=== PATIENT | female | born 1950 | race Caucasian/White ===

== ENCOUNTER → 2017-10-23 | Outpatient (CLI) | payer MEDICARE, OTHER ==
[2017-10-23 16:01] LABS: Blood Urea Nitrogen 21 mg/dL (7-17); Non-African American GFR(MDRD) >60 (>60 ml/min/1.73 sqM)
== END | disposition home or self-care (01) ==
LOC: LABWHC1 14:56
PROVIDERS: ATTEND Physical Medicine & Rehabilitation
DX: M47.27 Other spondylosis with radiculopathy, lumbosacral region (principal)
CPT/HCPCS: 36415; 82565; 84520

== ENCOUNTER 2019-07-03 22:51 | Inpatient (IN) | payer MEDICARE, OTHER ==
--- NOTE | 2019-07-03 23:53 | ED ---
Fall HPI - General Source: patient, EMS Mode of arrival: EMS <Bogdan Barrientos - Last Filed: 07/04/19 01:21> <Tino Lopez - Last Filed: 07/04/19 01:58> - General Chief Complaint: Fall Stated Complaint: Fall Time Seen by Provider: 07/03/19 22:59 - History of Present Illness Initial Comments: Patient is a 68-year-old female presenting to emergency Department after fall. Patient reports drinking "couple of beers" before the incident occurred. Patient reports she attempted to get up off her chair and her "legs fell asleep" causing her to fall forward and to the left. Patient reports 2 abrasions on her left arm, left supraorbital hematoma, right leg abrasion. Patient also has a history of cervical fusion done approximately 7 years ago. Patient is in a c- collar upon arrival via EMS. Patient denies any one-sided weakness or paresthesias. Patient denies headache, blurry vision, chest pain, shortness of breath, nausea or vomiting. Patient is not on blood thinners. Patient reports that she takes oxycodone every 4 that was prescribed to her by a pain management doctor. Patient reports not taking her night dose. Patient also reports that she is wheezing due to her COPD. Patient does not use oxygen at home. Patient still smokes. (Bogdan Barrientos) - Related Data Home Medications Medication Instructions Recorded Confirmed Raloxifene [Evista] 60 mg PO DAILY 02/07/15 07/03/19 Sertraline HCl [Zoloft] 100 mg PO BID 02/07/15 07/03/19 Gabapentin 800 mg PO TID 04/05/15 07/03/19 Levothyroxine Sodium [Synthroid] 50 mcg PO DAILY 04/05/15 07/03/19 risperiDONE [RisperDAL] 2 mg PO HS 04/05/15 07/03/19 Ergocalciferol [Vitamin D2 50,000 unit PO WE 06/26/16 07/03/19 (DRISDOL)] Budesonide-Formot 160-4.5 Mcg 2 puff INHALATION RT-BID 08/28/16 07/03/19 [Symbicort 160-4.5 Mcg Inhaler] Glucosamine/Chondr Burkett A Sod [Osteo 1 tab PO BID 08/28/16 07/03/19 Bi-Flex Caplet] Pantoprazole Sodium [Protonix] 40 mg PO DAILY 08/28/16 07/03/19 Ipratropium-Albuterol Nebulize 3 ml INHALATION RT-QID PRN 07/03/19 07/03/19 [Duoneb 0.5 mg-3 mg/3 ml Soln] Naproxen Sodium [Naproxen Sodium 500 mg PO BID 07/03/19 07/03/19 ER] oxyCODONE-APAP 7.5-325MG [Percocet 1 tab PO Q6HR PRN 07/03/19 07/03/19 7.5-325 mg] Previous Rx's Medication Instructions Recorded Docusate [Colace] 100 mg PO BID #60 capsule 10/01/16 Ferrous Sulfate [Feosol] 325 mg PO DAILY #1 tab 10/02/16 LORazepam [Ativan] 0.5 mg PO BID PRN #20 tablet 10/02/16 Cephalexin [Keflex] 500 mg PO Q6HR 3 Days #12 cap 07/04/19 Allergies Allergy/AdvReac Type Severity Reaction Status Date / Time Penicillins Allergy Dyspnea Verified 07/03/19 23:10 aspirin AdvReac Nausea & Verified 07/03/19 23:10 Vomiting morphine AdvReac Hallucinati Verified 07/03/19 23:10 ons Review of Systems ROS Other: All systems not noted in ROS Statement are negative. <Bogdan Barrientos - Last Filed: 07/04/19 01:21> ROS Other: All systems not noted in ROS Statement are negative. <Tino Lopez - Last Filed: 07/04/19 01:58> ROS Statement: Those systems with pertinent positive or pertinent negative responses have been documented in the HPI. Past Medical History Past Medical History: Cancer, COPD, Fibromyalgia, Osteoarthritis (OA) Additional Past Medical History / Comment(s): Hepatitis C; Kidney Ca History of Any Multi-Drug Resistant Organisms: None Reported Past Surgical History: Back Surgery, Orthopedic Surgery Additional Past Surgical History / Comment(s): Kidney Surgery, right wrist Past Anesthesia/Blood Transfusion Reactions: No Reported Reaction Past Psychological History: Depression Smoking Status: Current every day smoker Past Alcohol Use History: Occasional Past Drug Use History: None Reported - Past Family History Father Family Medical History: Cancer Additional Family Medical History / Comment(s): LUNG CA Mother Family Medical History: Osteoarthritis (OA) <Bogdan Barrientos - Last Filed: 07/04/19 01:21> General Exam Limitations: no limitations General appearance: alert, in no apparent distress Head exam: Present: normocephalic. Absent: atraumatic (Left supraorbital hematoma), normal inspection, other (Negative Bañuelos sign, negative periorbital ecchymosis, negative hemotympanum) Eye exam: Present: normal appearance, PERRL, EOMI. Absent: scleral icterus Pupils: Present: normal accommodation ENT exam: Present: normal exam, normal oropharynx, mucous membranes moist, TM's normal bilaterally, normal external ear exam. Absent: other (No oral trauma, no fractured ,) Neck exam: Present: normal inspection. Absent: tenderness (No cervical tenderness), full ROM (Limited range of motion in all directions due to previous surgery) Respiratory exam: Present: wheezes (Bilateral wheezing in all lung hewitt) Cardiovascular Exam: Present: regular rate, normal rhythm, normal heart sounds GI/Abdominal exam: Present: soft, normal bowel sounds. Absent: tenderness, guarding Extremities exam: Present: full ROM, normal capillary refill (Bilateral), other (+2 ulnar and radial pulses bilaterally, +2 dorsalis pedis and posterior tibialis bilaterally.). Absent: normal inspection (Multiple left arm abrasions, abrasion noted on the right leg. Pre-existing bony deformity in the right arm. Pre-existing lesion noted on the right arm near bony deformity) Back exam: Present: normal inspection, full ROM. Absent: tenderness, CVA tenderness (R), CVA tenderness (L) Neurological exam: Present: alert, oriented X3 Psychiatric exam: Present: normal affect, normal mood Skin exam: Present: warm, intact, normal color. Absent: rash <Bogdan Barrientos - Last Filed: 07/04/19 01:21> General appearance: alert, in no apparent distress Head exam: Present: atraumatic, normocephalic, normal inspection Eye exam: Present: normal appearance, PERRL, EOMI. Absent: scleral icterus, conjunctival injection, periorbital swelling ENT exam: Present: normal exam, mucous membranes moist Neck exam: Present: normal inspection. Absent: tenderness, meningismus, lymphadenopathy Respiratory exam: Present: normal lung sounds bilaterally. Absent: respiratory distress, wheezes, rales, rhonchi, stridor Cardiovascular Exam: Present: regular rate, normal rhythm, normal heart sounds. Absent: systolic murmur, diastolic murmur, rubs, gallop, clicks GI/Abdominal exam: Present: soft, normal bowel sounds. Absent: distended, tenderness, guarding, rebound, rigid Extremities exam: Present: normal inspection, full ROM, normal capillary refill. Absent: tenderness, pedal edema, joint swelling, calf tenderness Back exam: Present: normal inspection Neurological exam: Present: alert, oriented X3, CN II-XII intact Psychiatric exam: Present: normal affect, normal mood Skin exam: Present: warm, dry, intact, normal color. Absent: rash <Tino Lopez - Last Filed: 07/04/19 01:58> Course <Tino Lopez - Last Filed: 07/04/19 01:58> Vital Signs 07/03/19 07/04/19 07/04/19 23:01 01:24 01:36 Temperature 97.4 F L Pulse Rate 101 H 90 92 Respiratory 18 Rate Blood Pressure 182/107 O2 Sat by Pulse 97 Oximetry - Reevaluation(s) Reevaluation #1: 07/04/19 01:57 Patient is able to actively here in the ER (Tino Lopez) Medical Decision Making <Bogdan Barrientos - Last Filed: 07/04/19 01:21> <Tino Lopez - Last Filed: 07/04/19 01:58> - Medical Decision Making Patient is a 68-year-old female with history of COPD presenting to emergency Department after fall. CT of brain and C-spine is indicative of left supraorbital scalp hematoma, no evidence of acute intracranial processes, no acute osseous findings and a cervical spine. X-ray of the pelvis is negative for acute fractures or dislocations. Chest x-ray is showing a linear subsegmental atelectasis in the left lung base, otherwise no evidence of acute cardio pulmonary process. Abrasions on the left forearm or repaired. Patient is given a DuoNeb treatment and steroids. Patient reports poor healing with skin injuries someone to prescribe Keflex for possible infections. Patient signed out to Dr. Lopez (Bogdan Barrientos) 68 female the ER status post fall. Patient is multiple abrasions but no acute fractures or trauma. Patient can be discharged home (Tino Lopez) Disposition <Bogdan Barrientos - Last Filed: 07/04/19 01:21> Is patient prescribed a controlled substance at d/c from ED?: No <Tino Lopez - Last Filed: 07/04/19 01:58> Clinical Impression: Fall, Alcohol intoxication Disposition: HOME SELF-CARE Condition: Good Instructions (If sedation given, give patient instructions): Fall Prevention (ED), Fall Prevention for Older Adults (ED) Prescriptions: Cephalexin [Keflex] 500 mg PO Q6HR 3 Days #12 cap Referrals: Michael Valdovinos DO [Primary Care Provider] - 1-2 days
--- NOTE | 2019-07-04 00:29 | XR ---
INDICATION: Pain. COMPARISON: Pelvis radiograph 09/28/16 FINDINGS: Single AP view of the pelvis is submitted for interpretation. There is a cemented left hip hemiarthroplasty. There is mild osteoarthritis of the right hip joint. Both hip joints are congruent. The sacroiliac joints and pubic symphysis are normally aligned. There is no evidence of acute fracture. Spinal fixation hardware is seen in the lower lumbar spine. IMPRESSION: No fracture or subluxation.
--- NOTE | 2019-07-04 00:29 | XR ---
INDICATION: Cough COMPARISON: CXR 09/28/16 FINDINGS: Single frontal view of the chest is submitted for interpretation. The cardiomediastinal and pulmonary vascularity are normal. There are calcified left hilar lymph nodes consistent with old granulomatous disease. There is a linear band of subsegmental atelectasis at the left lung base. The lungs are otherwise clear. There is no pleural effusion or pneumothorax. There are old fractures of the posterolateral right eighth and ninth ribs. There are no acute osseous findings. Fixation hardware in the lower thoracic and lumbar spine is partially imaged. Fusion hardware in the cervical spine is also partially imaged. IMPRESSION: 1. Linear subsegmental atelectasis at the left lung base. 2. Otherwise, no evidence of acute cardiopulmonary process.
--- NOTE | 2019-07-04 00:29 | CT ---
INDICATION: Pain TECHNIQUE: CT acquisition is performed through the brain and cervical spine. Sagittal and coronal reformatted images are provided. No IV contrast is administered. DOSE INFORMATION: DLP 1293.8 mGy-cm. This CT exam was performed using one or more of the following dose reduction techniques: automated exposure control, adjustment of the mA and/or kV according to patient size, and/or use of iterative reconstruction technique. COMPARISON: CT head and cervical spine, 03/12/16. FINDINGS: CT head: There is no evidence of acute intracranial hemorrhage or abnormal extra- axial fluid collection. There is no mass effect or midline shift. Sulci, ventricles, and basal cisterns are normal in size and configuration for patient age. Patchy hypoattenuation in the cerebral white matter is compatible with chronic small vessel ischemic disease. The thomas-white matter differentiation is preserved. There is left supraorbital scalp swelling. The calvarium is intact. The visualized paranasal sinuses and mastoid air cells are clear. CT cervical spine: The craniocervical and atlantoaxial relationships are maintained. There has been prior anterior cervical discectomy and fusion from C3-C6. Hardware appears intact and without evidence of complication. There is no evidence of acute fracture or subluxation. There is moderate-severe degenerative disc disease at C6-C7. There is multilevel uncovertebral joint and facet degeneration. There is no prevertebral soft tissue swelling. Lung apices are clear. IMPRESSION: 1. Left supraorbital scalp hematoma. 2. No CT evidence of acute intracranial process. 3. No acute osseous findings in the cervical spine.
[2019-07-04] MEDS ORDERED: methylPREDNISolone SOD SUCCI 125 MG/2 ML VIAL IV STA (01:06)
[2019-07-04] MEDS ORDERED: IPRATROPIUM-ALBUTEROL 3 ML NEB INHALATION STA (01:06)
[2019-07-04] MEDS ORDERED: oxyCODONE ER 10 MG TAB.ER.12H PO STA (01:15)
[2019-07-04] MEDS ORDERED: SODIUM CHLORIDE 0.9% 1,000 ML IV STA (02:55)
--- NOTE | 2019-07-04 02:59 | CT ---
INDICATION: Pain TECHNIQUE: CT acquisition is performed through the left hip. Sagittal and coronal reformatted images are provided. No IV contrast is administered. DOSE INFORMATION: DLP 765.1 mGy-cm. This CT exam was performed using one or more of the following dose reduction techniques: automated exposure control, adjustment of the mA and/or kV according to patient size, and/or use of iterative reconstruction technique. COMPARISON: Pelvis radiograph, 07/04/19. FINDINGS: . There is a radiographically uncomplicated cemented left hip hemiarthroplasty. There is no evidence of acute fracture involving the left hemipelvis. The pubic symphysis, left sacroiliac joint, and left hip joint are normally aligned. There is a large contusion of the left gluteal soft tissues with a 6.5 cm focal subcutaneous hematoma. Visualized portions of the abdominal cavity demonstrates sigmoid diverticulosis without acute diverticulitis. IMPRESSION: 1. No acute osseous findings. 2. Large contusion of the left gluteal soft tissues with 6.5 cm soft tissue hematoma.
--- NOTE | 2019-07-04 02:59 | ED ---
Medical Decision Making - Medical Decision Making 68 female the ER for evaluation, patient presents status post fall. Patient has significant expanding hematoma of left hip, patient will be admitted for monitoring of hematoma and pain control - Radiology Data Radiology results: report reviewed (CT of left hip), image reviewed Disposition Clinical Impression: Fall, Alcohol intoxication, Hip hematoma, left Disposition: ADMITTED IP TO THIS HOSP Condition: Fair Instructions (If sedation given, give patient instructions): Fall Prevention for Older Adults (ED), Fall Prevention (ED) Prescriptions: Cephalexin [Keflex] 500 mg PO Q6HR 3 Days #12 cap Referrals: Michael Valdovinos DO [Primary Care Provider] - 1-2 days
[2019-07-04 03:48] LABS: Basophils % (A) 0 %; Eosinophils # (A) 0.1 k/uL (0-0.7); Eosinophils % (A) 1 %; HGB 12.7 gm/dL (11.4-16.0); Lymphocytes # (A) 0.5 k/uL (1.0-4.8); Lymphocytes % (A) 6 %; MCH 31.2 pg (25.0-35.0); MCHC 33.4 g/dL (31.0-37.0); MCV 93.5 fL (80.0-100.0); Mean Platelet Volume 7.9; Monocytes # (A) 0.1 k/uL (0-1.0); Monocytes % (A) 2 %; Neutrophils # (A) 7.7 k/uL (1.3-7.7); Neutrophils % (A) 91 %; Platelet Count 116 k/uL (150-450); RBC 4.06 m/uL (3.80-5.40); RDW 14.6 % (11.5-15.5); WBC 8.5 k/uL (3.8-10.6)
[2019-07-04 03:57] LABS: ALT 33 U/L (9-52); AST 45 U/L (14-36); African American GFR (CKD) >90 (>60 ml/min/1.73 sqM); Albumin 4.2 g/dL (3.5-5.0); Alkaline Phosphatase 87 U/L (38-126); Anion Gap 11 mmol/L; Blood Urea Nitrogen 12 mg/dL (7-17); Calcium 8.8 mg/dL (8.4-10.2); Carbon Dioxide 16 mmol/L (22-30); Chloride 104 mmol/L (98-107); Glucose 121 mg/dL (74-99); Magnesium 1.8 mg/dL (1.6-2.3); Phosphorus 3.7 mg/dL (2.5-4.5); Potassium 4.4 mmol/L (3.5-5.1); Sodium 131 mmol/L (137-145); Total Bilirubin 0.4 mg/dL (0.2-1.3); Total Protein 6.9 g/dL (6.3-8.2)
[2019-07-04 03:59] LABS: Prothrombin Time 10.6 sec (9.0-12.0)
[2019-07-04] MEDS: LEVOTHYROXINE 50 MCG TAB PO SCH (06:38)
[2019-07-04] MEDS: SYMBICORT 160-4.5 MCG INHALER INHALATION SCH ×2 (07:15→20:35)
--- NOTE | 2019-07-04 07:20 | P.HPIM ---
History of Present Illness H&P Date: 07/04/19 Chief Complaint: Fall 5-year-old female with history of COPD Patient presented to the emergency department after sustaining a fall at home couldn't get up after the fall due to bad knees and pain in her hip and had, she admits to drinking couple beers with her sister she had 4 beers and that she was trying to get up from chair she felt that her leg was sleep and fell immediately had to edge of the table with her head and fell to the ground and couldn't get up she did not lose consciousness she denies any throwing up. He called EMS and was brought into the hospital imaging did not show any fractures however did suggest left supraorbital hematoma and left hip hematoma. After observation and monitoring in the ER seems like her left hip hematoma was expanding for which patient was admitted for further monitoring of her hemoglobin and surgery evaluation for possible evacuation. Patient currently denies any pain except for her chronic low back pain. Denies any chest pain or trouble breathing denies being on any blood thinners or NSAIDs. Denies taking any aspirin at home. Denies any focal neurologic deficits Review of Systems Pertinent positives as noted in HPI. All other systems were reviewed and are negative Past Medical History Past Medical History: Cancer, COPD, Fibromyalgia, Osteoarthritis (OA) Additional Past Medical History / Comment(s): Hepatitis C; Kidney Ca History of Any Multi-Drug Resistant Organisms: None Reported Past Surgical History: Back Surgery, Orthopedic Surgery Additional Past Surgical History / Comment(s): Kidney Surgery, right wrist Past Anesthesia/Blood Transfusion Reactions: No Reported Reaction Past Psychological History: Depression Additional Psychological History / Comment(s): . Lives independently. Ongoing tobacco smoker at least a half pack per day. No current alcohol or recreational drug use. No experience. No travel history. No interval exposures. 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 Smoking Status: Current every day smoker Past Alcohol Use History: Occasional Additional Past Alcohol Use History / Comment(s): Pt states she is taking harvonie for hep c Past Drug Use History: None Reported - Past Family History Father Family Medical History: Cancer Additional Family Medical History / Comment(s): LUNG CA Mother Family Medical History: Osteoarthritis (OA) Medications and Allergies Home Medications Medication Instructions Recorded Confirmed Type Raloxifene [Evista] 60 mg PO DAILY 02/07/15 07/03/19 History Sertraline HCl [Zoloft] 100 mg PO BID 02/07/15 07/03/19 History Gabapentin 800 mg PO TID 04/05/15 07/03/19 History Levothyroxine Sodium [Synthroid] 50 mcg PO DAILY 04/05/15 07/03/19 History risperiDONE [RisperDAL] 2 mg PO HS 04/05/15 07/03/19 History Ergocalciferol [Vitamin D2 50,000 unit PO WE 06/26/16 07/03/19 History (DRISDOL)] Budesonide-Formot 160-4.5 Mcg 2 puff INHALATION RT-BID 08/28/16 07/03/19 History [Symbicort 160-4.5 Mcg Inhaler] Glucosamine/Chondr Burkett A Sod [Osteo 1 tab PO BID 08/28/16 07/03/19 History Bi-Flex Caplet] Pantoprazole Sodium [Protonix] 40 mg PO DAILY 08/28/16 07/03/19 History Docusate [Colace] 100 mg PO BID #60 capsule 10/01/16 07/03/19 Rx Ferrous Sulfate [Feosol] 325 mg PO DAILY #1 tab 10/02/16 07/03/19 Rx LORazepam [Ativan] 0.5 mg PO BID PRN #20 tablet 10/02/16 07/03/19 Rx Ipratropium-Albuterol Nebulize 3 ml INHALATION RT-QID PRN 07/03/19 07/03/19 History [Duoneb 0.5 mg-3 mg/3 ml Soln] Naproxen Sodium [Naproxen Sodium 500 mg PO BID 07/03/19 07/03/19 History ER] oxyCODONE-APAP 7.5-325MG [Percocet 1 tab PO Q6HR PRN 07/03/19 07/03/19 History 7.5-325 mg] Cephalexin [Keflex] 500 mg PO Q6HR 3 Days #12 cap 07/04/19 Rx Allergies Allergy/AdvReac Type Severity Reaction Status Date / Time Penicillins Allergy Dyspnea Verified 07/03/19 23:10 aspirin AdvReac Nausea & Verified 07/03/19 23:10 Vomiting morphine AdvReac Hallucinati Verified 07/03/19 23:10 ons Physical Exam Vitals: Vital Signs Temp Pulse Pulse Resp BP BP Pulse Ox 07/04/19 04:17 98.1 F 102 H 18 125/64 94 L 07/04/19 04:00 98.4 F 95 18 126/79 92 L 07/04/19 02:00 99 18 152/81 95 07/04/19 01:36 92 07/04/19 01:24 90 07/04/19 01:00 102 H 18 157/81 96 07/04/19 00:18 99 18 173/94 94 L 07/03/19 23:01 97.4 F L 101 H 18 182/107 97 Intake and Output 07/03/19 07/03/19 07/04/19 14:59 22:59 06:59 Other: Weight 68.039 kg Constitutional: No acute distress, conversant, pleasant Eyes: Anicteric sclerae, moist conjunctiva, no lid-lag Pupils equal round reactive to light, left supraorbital bruising with periorbital ecchymosis and swelling, no ophthalmoplegia ENMT: NC/AT Oropharynx clear, no erythema, or exudates Neck: Supple, FROM, no masses, or JVD No carotid bruits No thyromegaly Lungs: Good breath sounds with prolonged expiratory phase no wheezing rhonchi or rales Clear to percussion Normal respiratory effort, no accessory muscle use Cardiovascular: Heart regular in rate and rhythm, No murmurs, gallops, or rubs No peripheral edema Abdominal: Soft Nontender, no guarding, rebound or rigidity Abdomen moving with respiration Normoactive bowel sounds No hepatomegaly, No splenomegaly No palpable mass No abdominal wall hernia noted Skin: There is big area of ecchymosis over the left hip tends to the touch and swollen 20 x 20 cm tender to the touch warm to the touch otherwise skin is Normal temperature, tone, texture, turgor Surgical dressing over the left forearm No induration No subcutaneous nodules Extremities: Patient has deformed right upper extremity with chronic fracture over the right forearm nonhealing No digital cyanosis No clubbing Pedal pulses intact and symmetrical Radial pulses intact and symmetrical No calf tenderness Psychiatric: Alert and oriented to person, place and time Appropriate affect fair judgment Neuro Muscles Strength 4 out of 5 in bilateral lower extremities4 over 5 in the right upper extremity with limited over the distal muscle groups due to nonhealing fracture of the right forearm, and strength is 4 out of 5 in the left upper extremity Sensation to light touch grossly present throughout Cranial nerves II-XII grossly intact No focal sensory deficits Lymphatics: no palpable cervical or supraclavicular , or inguinal lymph nodes Results CBC & Chem 7: 07/04/19 03:30 07/04/19 03:30 Labs: Abnormal Lab Results - Last 24 Hours (Table) 07/04/19 07/04/19 Range/Units 03:30 03:30 Plt Count 116 L (150-450) k/uL Lymphocytes # 0.5 L (1.0-4.8) k/uL Sodium 131 L (137-145) mmol/L Carbon Dioxide 16 L (22-30) mmol/L Glucose 121 H (74-99) mg/dL AST 45 H (14-36) U/L Thrombosis Risk Factor Assmnt - Choose All That Apply Any of the Below Risk Factors Present?: Yes Each Factor Represents 1 point: Abnormal pulmonary function (COPD) Other Risk Factors: Yes Each Risk Factor Represents 2 Points: Age 61-74 years Other congenital or acquired thrombophilia - If yes, enter type in comment: No Thrombosis Risk Factor Assessment Total Risk Factor Score: 3 Thrombosis Risk Factor Assessment Level: Moderate Risk Assessment and Plan Assessment: 5-year-old female with history of COPD admitted under observation despite blood this stay list in 48 hours due to a fall resulting in expanding hematoma of the left hip patient was intoxicated with alcohol when she had a fall admitted for orthopedic evaluation Plan: Expanding hematoma of the left hip Status post falling while intoxicated with alcohol Abrasions over the left forearm and left periorbital hematoma secondary to fall Orthopedic evaluation for expanding hematoma of the left hip Monitor hemoglobin Pain control Fall precautions PT evaluation Chronic conditions COPD without exacerbation CODE STATUS: Full code DVT prophylaxis: Chemical Discussed with: Patient, ER, RN Anticipated discharge: Less than [address]: [facility] clinical course A total of 60 minutes was spent on the care of this complex patient more than 50% of the time was spent in counseling and care coordination.
[2019-07-04] MEDS: DOCUSATE 100 MG CAP PO SCH ×2 (07:52→21:00)
[2019-07-04] MEDS: PANTOPRAZOLE 40 MG TABLET PO SCH (07:52)
[2019-07-04] MEDS: GABAPENTIN 400 MG CAP PO SCH ×3 (07:52→21:00)
[2019-07-04] MEDS: SERTRALINE 100 MG TAB PO SCH ×2 (07:53→20:59)
[2019-07-04] MEDS: RALOXIFENE 60 MG TAB PO SCH (07:53)
[2019-07-04] MEDS: LORazepam 0.5 MG TAB PO PRN (07:56)
[2019-07-04 08:11] LABS: Basophils % (A) 0 %; Eosinophils # (A) 0.1 k/uL (0-0.7); Eosinophils % (A) 1 %; HCT 36.4 % (34.0-46.0); HGB 12.3 gm/dL (11.4-16.0); Lymphocytes # (A) 0.4 k/uL (1.0-4.8); Lymphocytes % (A) 5 %; MCH 32.5 pg (25.0-35.0); MCHC 33.9 g/dL (31.0-37.0); Mean Platelet Volume 7.9; Monocytes # (A) 0.2 k/uL (0-1.0); Monocytes % (A) 2 %; Neutrophils # (A) 8.1 k/uL (1.3-7.7); Neutrophils % (A) 93 %; Platelet Count 110 k/uL (150-450); RBC 3.79 m/uL (3.80-5.40); RDW 14.7 % (11.5-15.5); WBC 8.8 k/uL (3.8-10.6)
[2019-07-04] MEDS ORDERED: LIDOCAINE 1% INJ 10MG/ML (20 ML MDV) SQ STA (08:39)
--- NOTE | 2019-07-04 09:18 | P.PN ---
Progress Note - Text Progress Note Date: 07/04/19 Procedure note: After verbal consent the patient opts for aspiration of left hip hematoma. The left lateral hip was prepped with alcohol and 3mL of 1% lidocaine was injected locally. The hip was then prepped with ChloraPrep and using an 18-gauge needle and 20 mL syringe, the needle was inserted in the hematoma site. 2 or 3 drops of thick blood was aspirated around the entire hematoma site. The needle was removed and gauze was applied to the aspiration site. The patient tolerated the procedure well.
[2019-07-04] MEDS: ACETAMINOPHEN TAB 325 MG TAB PO PRN (14:22)
[2019-07-04] MEDS: oxyCODONE-APAP 7.5-325MG 1 EACH TAB PO PRN (16:09)
--- NOTE | 2019-07-04 16:46 | P.PN ---
Progress Note - Text Progress Note Date: 07/04/19 Patient was re-evaluated after admission to the hospital early today and is she stated that she is doing fine later on nurse reported that patient did complain of back pain which is chronic and patient was started on Tylenol 650 every 6 hours when necessary which did not help the pain. Nurses reported that patient was on hydrocodone 7.5 at home every 6 hour as needed and that medication was resumed. Patient's CBC every 8 hours is been ordered and will monitor hemoglobin as patient does have significant hematoma on the left hip area. Orthopedic team tried to aspirate the hematoma but was unable to do that and we will continue medical management and observation for now.
[2019-07-04 20:17] LABS: Basophils % (A) 0 %; Eosinophils % (A) 1 %; HCT 29.1 % (34.0-46.0); Lymphocytes % (A) 12 %; MCH 32.2 pg (25.0-35.0); MCHC 34.4 g/dL (31.0-37.0); MCV 93.5 fL (80.0-100.0); Mean Platelet Volume 8.9; Monocytes # (A) 0.5 k/uL (0-1.0); Monocytes % (A) 6 %; Neutrophils # (A) 6.4 k/uL (1.3-7.7); Neutrophils % (A) 80 %; Platelet Count 100 k/uL (150-450); RBC 3.11 m/uL (3.80-5.40); RDW 14.8 % (11.5-15.5)
[2019-07-04] MEDS: IPRATROPIUM-ALBUTEROL 3 ML NEB INHALATION PRN (20:35)
[2019-07-04] MEDS: risperiDONE 2 MG TAB PO SCH (21:00)
[2019-07-05 00:24] LABS: Basophils % (A) 0 %; Eosinophils # (A) 0.1 k/uL (0-0.7); Eosinophils % (A) 2 %; HCT 29.2 % (34.0-46.0); HGB 9.9 gm/dL (11.4-16.0); Lymphocytes % (A) 16 %; MCH 31.9 pg (25.0-35.0); MCV 93.8 fL (80.0-100.0); Mean Platelet Volume 8.1; Monocytes # (A) 0.3 k/uL (0-1.0); Monocytes % (A) 5 %; Neutrophils % (A) 77 %; RBC 3.11 m/uL (3.80-5.40); RDW 14.8 % (11.5-15.5); WBC 6.5 k/uL (3.8-10.6)
[2019-07-05 01:52] LABS: Platelet Count 92 k/uL (150-450)
[2019-07-05] MEDS: oxyCODONE-APAP 7.5-325MG 1 EACH TAB PO PRN ×2 (03:05→17:54)
[2019-07-05] MEDS: IPRATROPIUM-ALBUTEROL 3 ML NEB INHALATION PRN ×5 (03:43→19:47)
[2019-07-05 07:03] LABS: Glucose,Whole Blood 120 mg/dL (75-99)
[2019-07-05] MEDS: SYMBICORT 160-4.5 MCG INHALER INHALATION SCH ×2 (07:50→19:47)
--- NOTE | 2019-07-05 08:30 | P.PN ---
Subjective Progress Note Date: 07/05/19 Principal diagnosis: Left hip hematoma This is a 68 year-old female who we have been following for a left hip hematoma. The patient was evaluated at the bedside today. The patient denies nausea, vomiting, abdominal pain, shortness of breath, and chest pain this morning. She states her pain is controlled at this time. The patient has been up to the bathroom without difficulty. Her hemoglobin remains stable. She has noticed some pain in her right lateral ankle since the fall but states she has no pain upon weightbearing. Objective - Vital Signs Vital signs: Vital Signs Temp 98.1 F 07/05/19 04:49 Pulse 88 07/05/19 08:04 Resp 18 07/05/19 04:49 BP 146/82 07/05/19 04:49 Pulse Ox 90 L 07/05/19 04:49 Intake & Output 07/04/19 07/05/19 07/05/19 18:59 06:59 18:59 Intake Total 680 Balance 680 Intake: Oral 480 Other 200 Other: Voiding Method Toilet Toilet # Voids 1 2 - Exam The patient is a 68-year-old female who is in no acute distress. She is alert and oriented 3. Exam of the left hip reveals an extensive hematoma to the lateral hip. The aspiration site is slightly oozing sanguinous drainage. No signs or symptoms of infection. The hematoma is soft. Normal range of motion of the hip. Calf is soft and nontender. Exam of the right ankle reveals no swelling or bruising. Mild pain to palpation to the lateral aspect of the ankle. Neurological and circulatory status is intact. - Labs CBC & Chem 7: 07/05/19 07:29 07/04/19 03:30 Labs: Abnormal Lab Results - Last 24 Hours (Table) 07/04/19 07/05/19 07/05/19 Range/Units 19:30 00:13 07:01 RBC 3.11 L 3.11 L (3.80-5.40) m/uL Hgb 10.0 L D 9.9 L (11.4-16.0) gm/dL Hct 29.1 L 29.2 L (34.0-46.0) % Plt Count 100 L 92 L (150-450) k/uL POC Glucose (mg/dL) 120 H (75-99) mg/dL Assessment and Plan (1) Fall Current Visit: Yes Status: Acute Code(s): W19.XXXA - UNSPECIFIED FALL, INITIAL ENCOUNTER SNOMED Code(s): 1060003 (2) Hip hematoma, left Current Visit: Yes Status: Acute Code(s): S70.02XA - CONTUSION OF LEFT HIP, INITIAL ENCOUNTER SNOMED Code(s): 516098965 Plan: The clinical findings were discussed with the patient. Case was also discussed with Dr. Osborne. The patient appears to be stable and ambulating well. Continue ice and/or heat to the left hip. From an orthopedic standpoint, the patient may be discharged home with outpatient follow-up in 2 weeks.
[2019-07-05 08:35] LABS: Basophils % (A) 0 %; Eosinophils # (A) 0.1 k/uL (0-0.7); Eosinophils % (A) 1 %; HCT 29.3 % (34.0-46.0); HGB 9.8 gm/dL (11.4-16.0); Lymphocytes % (A) 19 %; MCH 32.2 pg (25.0-35.0); MCHC 33.6 g/dL (31.0-37.0); MCV 95.7 fL (80.0-100.0); Mean Platelet Volume 8.6; Monocytes # (A) 0.2 k/uL (0-1.0); Monocytes % (A) 4 %; Neutrophils % (A) 74 %; RBC 3.06 m/uL (3.80-5.40); RDW 15.5 % (11.5-15.5); WBC 5.4 k/uL (3.8-10.6)
[2019-07-05] MEDS: GABAPENTIN 400 MG CAP PO SCH ×3 (08:44→21:16)
[2019-07-05 08:45] LABS: Platelet Count 94 k/uL (150-450)
[2019-07-05] MEDS: SERTRALINE 100 MG TAB PO SCH ×2 (08:45→21:16)
[2019-07-05] MEDS: DOCUSATE 100 MG CAP PO SCH ×2 (08:45→21:16)
[2019-07-05] MEDS: RALOXIFENE 60 MG TAB PO SCH (08:45)
[2019-07-05] MEDS: PANTOPRAZOLE 40 MG TABLET PO SCH (08:45)
--- NOTE | 2019-07-05 11:02 | P.PN ---
Subjective Progress Note Date: 07/05/19 This 68-year-old lady who was admitted yesterday after having a fall post conception off on calling beverage and developing significant hematoma of the left hip and left periorbital bruise and hematoma. Workup reported no fractures but hematoma was significance orthopedic was consulted who tried to drain the hematoma yesterday but was unsuccessful. After that try patient started oozing blood from that needle insertion site. Patient reports having pain in the left hip area and left for her area same as it was yesterday. Patient is working with the physical therapy but physical therapy note is currently pending. Patient's hemoglobin is noted to be slowly declining from 12.7-9.9 yesterday and 9.8 today. Patient was approached by case management regarding home care referral but she refused. Patient denies chest pain, palpitation, headache, dizziness, lightheadedness, fever, chills and denies rest of the review system. Objective - Vital Signs Vital signs: Vital Signs Temp 98.1 F 07/05/19 04:49 Pulse 88 07/05/19 08:04 Resp 18 07/05/19 08:00 BP 146/82 07/05/19 04:49 Pulse Ox 90 L 07/05/19 04:49 Intake & Output 07/04/19 07/05/19 07/05/19 18:59 06:59 18:59 Intake Total 680 400 Balance 680 400 Intake: Oral 480 400 Other 200 Other: Voiding Method Toilet Toilet Toilet # Voids 1 2 - Constitutional General appearance: Present: cooperative, no acute distress - Respiratory Respiratory: bilateral: CTA, wheezing (Few scattered wheezes heard.), negative: rales, rhonchi - Cardiovascular Rhythm: regular Heart sounds: normal: S1, S2 - Gastrointestinal General gastrointestinal: Present: normal bowel sounds, soft. Absent: distended, rigid, tenderness - Neurologic Neurologic: Present: CNII-XII intact. Absent: focal deficits - Psychiatric Psychiatric: Present: A&O x's 3, appropriate affect, intact judgment & insight - Allied health notes Allied health notes reviewed: nursing - Labs CBC & Chem 7: 07/05/19 07:29 07/04/19 03:30 Labs: Abnormal Lab Results - Last 24 Hours (Table) 07/04/19 07/05/19 07/05/19 Range/Units 19:30 00:13 07:01 RBC 3.11 L 3.11 L (3.80-5.40) m/uL Hgb 10.0 L D 9.9 L (11.4-16.0) gm/dL Hct 29.1 L 29.2 L (34.0-46.0) % Plt Count 100 L 92 L (150-450) k/uL POC Glucose (mg/dL) 120 H (75-99) mg/dL 07/05/19 Range/Units 07:29 RBC 3.06 L (3.80-5.40) m/uL Hgb 9.8 L (11.4-16.0) gm/dL Hct 29.3 L (34.0-46.0) % Plt Count 94 L (150-450) k/uL POC Glucose (mg/dL) (75-99) mg/dL Assessment and Plan (1) Fall Current Visit: Yes Status: Acute Priority: High Code(s): W19.XXXA - UNSPECIFIED FALL, INITIAL ENCOUNTER SNOMED Code(s): 3964032 (2) Hip hematoma, left Current Visit: Yes Status: Acute Priority: High Code(s): S70.02XA - CONTUSION OF LEFT HIP, INITIAL ENCOUNTER SNOMED Code(s): 407505832 (3) Alcohol intoxication Current Visit: Yes Status: Acute Priority: Medium Code(s): F10.929 - ALCOHOL USE, UNSPECIFIED WITH INTOXICATION, UNSPECIFIED SNOMED Code(s): 45163150 Plan: Patient will be continued on current management plan hemoglobin is been monitored today's hemoglobin is 9.8 which is stable from last night. Patient is constantly complaining of pain in that hip area I will repeat the x-ray now to see if there is any hairline fracture which may or may not be more apparent after 48 hours of fall. Rest of the medication will be continued as it is, patient will refuse home care but when I talked her she agree for trying subacute rehabilitation will communicate with the nurses for possibility of subacute rehabilitation placement to decrease incidences of recurrent falls. Time with Patient: Less than 30
[2019-07-05 11:18] LABS: Glucose,Whole Blood 104 mg/dL (75-99)
[2019-07-05] MEDS: LEVOTHYROXINE 50 MCG TAB PO SCH (11:45)
[2019-07-05] MEDS: LORazepam 0.5 MG TAB PO PRN (17:54)
--- NOTE | 2019-07-05 20:16 | XR ---
PROCEDURE: XR Hip Complete LT - 2 views DATE AND TIME: 07/05/2019 6:09 PM CLINICAL INDICATION: PHH; fx TECHNIQUE: Department protocol COMPARISON: None FINDINGS: The left hip prosthesis appears anatomic in its positioning and alignment. The bones and johann ints and soft tissues are otherwise unremarkable. IMPRESSION: No acute process.
[2019-07-05] MEDS: risperiDONE 2 MG TAB PO SCH (21:16)
[2019-07-05 21:37] VITALS: RESP 18
[2019-07-05] MEDS: NICOTINE 21MG/24HR PATCH TRANSDERM SCH (22:27)
[2019-07-06] MEDS: oxyCODONE-APAP 7.5-325MG 1 EACH TAB PO PRN ×2 (00:10→05:59)
[2019-07-06] MEDS: LORazepam 0.5 MG TAB PO PRN (01:33)
[2019-07-06] MEDS: ACETAMINOPHEN TAB 325 MG TAB PO PRN (04:19)
[2019-07-06 05:03] VITALS: BP 133/78; TEMP 97.5
[2019-07-06] MEDS: LEVOTHYROXINE 50 MCG TAB PO SCH (05:57)
[2019-07-06 08:00] LABS: Basophils % (A) 1 %; Eosinophils # (A) 0.1 k/uL (0-0.7); Eosinophils % (A) 2 %; HCT 28.6 % (34.0-46.0); HGB 9.7 gm/dL (11.4-16.0); Lymphocytes # (A) 1.1 k/uL (1.0-4.8); Lymphocytes % (A) 20 %; MCHC 33.8 g/dL (31.0-37.0); MCV 97.6 fL (80.0-100.0); Mean Platelet Volume 8.6; Monocytes # (A) 0.2 k/uL (0-1.0); Monocytes % (A) 4 %; Neutrophils # (A) 4.1 k/uL (1.3-7.7); Neutrophils % (A) 73 %; RBC 2.93 m/uL (3.80-5.40); RDW 15.7 % (11.5-15.5); WBC 5.6 k/uL (3.8-10.6)
[2019-07-06 08:13] LABS: Platelet Count 86 k/uL (150-450)
[2019-07-06] MEDS: SYMBICORT 160-4.5 MCG INHALER INHALATION SCH (08:31)
[2019-07-06] MEDS: IPRATROPIUM-ALBUTEROL 3 ML NEB INHALATION PRN (08:31)
[2019-07-06] MEDS: GABAPENTIN 400 MG CAP PO SCH (08:50)
[2019-07-06] MEDS: SERTRALINE 100 MG TAB PO SCH (08:51)
[2019-07-06] MEDS: RALOXIFENE 60 MG TAB PO SCH (08:51)
[2019-07-06] MEDS: NICOTINE 21MG/24HR PATCH TRANSDERM SCH (08:51)
[2019-07-06] MEDS: PANTOPRAZOLE 40 MG TABLET PO SCH (08:51)
[2019-07-06] MEDS: DOCUSATE 100 MG CAP PO SCH (08:51)
--- NOTE | 2019-07-06 10:47 | P.DS ---
Providers Date of admission: 07/04/19 02:59 Expected date of discharge: 07/06/19 Attending physician: Aleksandra Keating MD Consults: 07/04/19 02:55 Consult Physician Routine Consulting Provider: Ez Osborne Consult Reason/Comments: hip Do you want consulting provider notified?: Yes Primary care physician: [facility] Course: 68-year-old female with PMH of COPD presents the ED after sustaining a fall, mechanical in nature with trauma to her hip after consuming alcoholic beverages. CT of the head and C-spine showed left supraorbital scalp hematoma, no acute intracranial process and negative C-spine. Hip CT showed large contusion of the left gluteal soft tissue was 6.5 cm soft tissue hematoma. Her hemoglobin was trended and ranged from 10-9.7. Patient was noted to have a low platelet count ranging between 86 and 100 thought to be due to alcohol use. Physical therapy evaluated the patient and cleared the patient for discharge. Orthopedic surgery evaluated the patient and possible I&D was performed unsuccessfully. Patient was seen and examined prior to discharge. No acute events overnight. Patient reports right ankle pain but states that she has had this pain previous to her fall, thinks that it's neuropathic. She denies any chest pain, shortness of breath or palpitations. No nausea or vomiting. No fever or chills. General: [non toxic], [no distress], [appears at stated age] Derm: [warm], [dry] Head: [atraumatic], [normocephalic], [symmetric] Eyes: [EOMI], [no lid lag], [anicteric sclera] Mouth: [no lip lesion], [mucus membranes moist] Cardiovascular: [S1S2 reg], [no murmur], [positive posterior tibial pulse bilateral], Lungs: [CTA bilateral], [no rhonchi, no rales] , [no accessory muscle use] Abdominal: [soft], [ nontender to palpation], [no guarding], [no appreciable organomegaly] Ext: [no gross muscle atrophy], [no edema], [no contractures], [right wrist deformity], [ecchymosis over the left hip with minimal oozing blood, tenderness to palpation] Neuro: [no focal neuro deficits] Psych: [Alert], [oriented], [appropriate affect] Fall Left hip hematoma Likely due to intoxication. PT cleared. Hemoglobin has remained stable from 10-9.7. Plans: Repeat CBC in 3 days. Patient will be discharged home today. Follow-up orthopedic surgery. Follow CBC in 3 days. Pertinent Studies: Head CT, C-spine CT, pelvic chest x-ray, hip CT Patient Condition at Discharge: Fair Plan - Discharge Summary Discharge Rx Participant: No New Discharge Prescriptions: New Cephalexin [Keflex] 500 mg PO Q6HR 3 Days #12 cap oxyCODONE-APAP 7.5-325MG [Percocet 7.5-325 mg] 1 each PO Q6HR PRN #12 tab PRN Reason: Pain Continue Sertraline HCl [Zoloft] 100 mg PO BID Raloxifene [Evista] 60 mg PO DAILY risperiDONE [RisperDAL] 2 mg PO HS Levothyroxine Sodium [Synthroid] 50 mcg PO DAILY Gabapentin 800 mg PO TID Ergocalciferol [Vitamin D2 (DRISDOL)] 50,000 unit PO WE Glucosamine/Chondr Burkett A Sod [Osteo Bi-Flex Caplet] 1 tab PO BID Pantoprazole Sodium [Protonix] 40 mg PO DAILY Budesonide-Formot 160-4.5 Mcg [Symbicort 160-4.5 Mcg Inhaler] 2 puff INHALATION RT-BID Docusate [Colace] 100 mg PO BID #60 capsule LORazepam [Ativan] 0.5 mg PO BID PRN #20 tablet PRN Reason: Anxiety Ferrous Sulfate [Feosol] 325 mg PO DAILY #1 tab oxyCODONE-APAP 7.5-325MG [Percocet 7.5-325 mg] 1 tab PO Q6HR PRN PRN Reason: Pain Naproxen Sodium [Naproxen Sodium ER] 500 mg PO BID Ipratropium-Albuterol Nebulize [Duoneb 0.5 mg-3 mg/3 ml Soln] 3 ml INHALATION RT-QID PRN PRN Reason: Shortness Of Breath Or Wheezing Discharge Medication List Raloxifene [Evista] 60 mg PO DAILY 02/07/15 [History] Sertraline HCl [Zoloft] 100 mg PO BID 02/07/15 [History] Gabapentin 800 mg PO TID 04/05/15 [History] Levothyroxine Sodium [Synthroid] 50 mcg PO DAILY 04/05/15 [History] risperiDONE [RisperDAL] 2 mg PO HS 04/05/15 [History] Ergocalciferol [Vitamin D2 (DRISDOL)] 50,000 unit PO WE 06/26/16 [History] Budesonide-Formot 160-4.5 Mcg [Symbicort 160-4.5 Mcg Inhaler] 2 puff INHALATION RT-BID 08/28/16 [History] Glucosamine/Chondr Burkett A Sod [Osteo Bi-Flex Caplet] 1 tab PO BID 08/28/16 [History] Pantoprazole Sodium [Protonix] 40 mg PO DAILY 08/28/16 [History] Docusate [Colace] 100 mg PO BID #60 capsule 10/01/16 [Rx] Ferrous Sulfate [Feosol] 325 mg PO DAILY #1 tab 10/02/16 [Rx] LORazepam [Ativan] 0.5 mg PO BID PRN #20 tablet 10/02/16 [Rx] Ipratropium-Albuterol Nebulize [Duoneb 0.5 mg-3 mg/3 ml Soln] 3 ml INHALATION RT-QID PRN 07/03/19 [History] Naproxen Sodium [Naproxen Sodium ER] 500 mg PO BID 07/03/19 [History] oxyCODONE-APAP 7.5-325MG [Percocet 7.5-325 mg] 1 tab PO Q6HR PRN 07/03/19 [History] Cephalexin [Keflex] 500 mg PO Q6HR 3 Days #12 cap 07/04/19 [Rx] oxyCODONE-APAP 7.5-325MG [Percocet 7.5-325 mg] 1 each PO Q6HR PRN #12 tab 07/06/19 [Rx] Follow up Appointment(s)/Referral(s): Ez Osborne DO [Medical Doctor] - 2 Weeks Michael Valdovinos DO [Primary Care Provider] - 1-2 days Patient Instructions/Handouts: Cephalexin (By mouth), Fall Prevention for Older Adults (ED), Heat Pack Application (DC), Ice Pack Application (DC), Fall Prevention (ED), Hematoma (ED) Activity/Diet/Wound Care/Special Instructions: Apply ice and/or heat to left hip Weightbearing as tolerated Follow-up with PCP within 1-2 days of discharge. Follow-up with orthopedic surgery within 1 week of discharge. Please quit drinking. Take all medications as advised. Discharge Disposition: HOME SELF-CARE
[2019-07-06 12:10] VITALS: PULSE 99
== END 2019-07-06 13:10 | disposition home or self-care (01) | DRG 605 ==
LOC: EC 22:51 → 1SOBS 07-04 02:59 → 3NMEDONC 07-04 17:00 → OBSVTOIN 07-06 08:16
PROVIDERS: ADMIT Internal Medicine; ATTEND Internal Medicine
PROC: 0H9HXZZ Drainage of Right Upper Leg Skin, External Approach (ICD-10-PCS; principal; 2019-07-04)
DX: S70.02XA Contusion of left hip, initial encounter (principal); F10.929 Alcohol use, unspecified with intoxication, unspecified; G89.29 Other chronic pain; M54.5 Low back pain; W07.XXXA Fall from chair, initial encounter; S00.12XA Contusion of left eyelid and periocular area, initial encounter; F17.200 Nicotine dependence, unspecified, uncomplicated; F32.9 Major depressive disorder, single episode, unspecified; J44.9 Chronic obstructive pulmonary disease, unspecified; S00.03XA Contusion of scalp, initial encounter; S50.812A Abrasion of left forearm, initial encounter; S40.812A Abrasion of left upper arm, initial encounter; S80.11XA Contusion of right lower leg, initial encounter; M79.7 Fibromyalgia; Y92.009 Unspecified place in unspecified non-institutional (private) residence as the place of occurrence of the external cause; Z79.51 Long term (current) use of inhaled steroids; Z79.890 Hormone replacement therapy; Z79.899 Other long term (current) drug therapy; Z80.1 Family history of malignant neoplasm of trachea, bronchus and lung; Z85.528 Personal history of other malignant neoplasm of kidney; Z91.81 History of falling; Z98.1 Arthrodesis status
CPT/HCPCS: 70450; 71045; 72125; 72170; 73502; 80053; 83735; 84100; 85025; 85610; 85730; 86850; 86900; 86901; 93005; 94640; 94760

== ENCOUNTER 2020-01-14 13:37 | Inpatient (IN) | payer MEDICARE, OTHER ==
[2020-01-14] MEDS ORDERED: ALBUTEROL NEBULIZED 2.5 MG/3 ML INHALATION STA (13:46)
[2020-01-14] MEDS ORDERED: IPRATROPIUM 0.5 MG/2.5 ML NEBU INHALATION STA (13:46)
[2020-01-14] MEDS ORDERED: methylPREDNISolone SOD SUCCI 125 MG/2 ML VIAL IV STA (13:46)
--- NOTE | 2020-01-14 13:51 | ED ---
General Adult HPI - General Stated complaint: NATANAEL Time Seen by Provider: 01/14/20 13:37 Source: patient, RN notes reviewed, old records reviewed - History of Present Illness Initial comments: This is a 69-year-old female presents emergency Department complaining of COPD. Patient states she has not had any albuterol or Atrovent over the last couple of months. Patient states she can still get Nasr doctor. Patient states her last 3 days her difficulty breathing is gotten worse and she's had no treatment for that. Patient states that she called EMS on the way and she got a breathing treatment does feel considerably better but not back to her baseline. Patient states she is coughing quite a bit but she has notsputum production. Patient denies any recent fever chills per patient denies any chest pain or palpitations. Patient denies abdominal pain patient denies nausea vomiting diarrhea. Patient denies any swelling to legs or calf tenderness. She has a chronic gross abnormality to the right wrist from a previous surgery. - Related Data Home Medications Medication Instructions Recorded Confirmed Raloxifene [Evista] 60 mg PO DAILY 02/07/15 07/03/19 Sertraline HCl [Zoloft] 100 mg PO BID 02/07/15 07/03/19 Gabapentin 800 mg PO TID 04/05/15 07/03/19 Levothyroxine Sodium [Synthroid] 50 mcg PO DAILY 04/05/15 07/03/19 risperiDONE [RisperDAL] 2 mg PO HS 04/05/15 07/03/19 Ergocalciferol [Vitamin D2 50,000 unit PO WE 06/26/16 07/03/19 (DRISDOL)] Budesonide-Formot 160-4.5 Mcg 2 puff INHALATION RT-BID 08/28/16 07/03/19 [Symbicort 160-4.5 Mcg Inhaler] Glucosamine/Chondr Burkett A Sod [Osteo 1 tab PO BID 08/28/16 07/03/19 Bi-Flex Caplet] Pantoprazole Sodium [Protonix] 40 mg PO DAILY 08/28/16 07/03/19 Ipratropium-Albuterol Nebulize 3 ml INHALATION RT-QID PRN 07/03/19 07/03/19 [Duoneb 0.5 mg-3 mg/3 ml Soln] Naproxen Sodium [Naproxen Sodium 500 mg PO BID 07/03/19 07/03/19 ER] oxyCODONE-APAP 7.5-325MG [Percocet 1 tab PO Q6HR PRN 07/03/19 07/03/19 7.5-325 mg] Previous Rx's Medication Instructions Recorded Docusate [Colace] 100 mg PO BID #60 capsule 10/01/16 Ferrous Sulfate [Feosol] 325 mg PO DAILY #1 tab 10/02/16 LORazepam [Ativan] 0.5 mg PO BID PRN #20 tablet 10/02/16 Cephalexin [Keflex] 500 mg PO Q6HR 3 Days #12 cap 07/04/19 oxyCODONE-APAP 7.5-325MG [Percocet 1 each PO Q6HR PRN #12 tab 07/06/19 7.5-325 mg] Allergies Allergy/AdvReac Type Severity Reaction Status Date / Time Penicillins Allergy Dyspnea Verified 07/03/19 23:10 aspirin AdvReac Nausea & Verified 07/03/19 23:10 Vomiting morphine AdvReac Hallucinati Verified 07/03/19 23:10 ons Review of Systems ROS Statement: Those systems with pertinent positive or pertinent negative responses have been documented in the HPI. ROS Other: All systems not noted in ROS Statement are negative. Past Medical History Past Medical History: Cancer, COPD, Fibromyalgia, Osteoarthritis (OA) Additional Past Medical History / Comment(s): Hepatitis C; Kidney Ca History of Any Multi-Drug Resistant Organisms: None Reported Past Surgical History: Back Surgery, Orthopedic Surgery Additional Past Surgical History / Comment(s): Kidney Surgery, right wrist Past Anesthesia/Blood Transfusion Reactions: No Reported Reaction Past Psychological History: Depression Additional Psychological History / Comment(s): . Lives independently. Ongoing tobacco smoker at least a half pack per day. No current alcohol or recreational drug use. No experience. No travel history. No interval exposures. 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 Patient is nontoxic and well- hydrated and is in mild distress. ENT: Neck is soft and supple. No significant lymphadenopathy is noted. Oropharynx is clear. Moist mucous membranes. Neck has full range of motion without eliciting any pain. EYES: The sclera were anicteric and conjunctiva were pink and moist. Extraocular movements were intact and pupils were equal round and reactive to light. Eyelid s were unremarkable. PULMONARY: Unlabored respirations. Good breath sounds bilaterally. No audible rales rhonchi or wheezing was noted. CARDIOVASCULAR: There is a regular rate and rhythm without any murmurs gallops or rubs. ABDOMEN: Soft and nontender with normal bowel sounds. SKIN: Skin is clear with no lesions or rashes and otherwise unremarkable. NEUROLOGIC: Patient is alert and oriented x3. Cranial nerves II through XII are grossly intact. Motor and sensory are also intact. Normal speech, volume and content. Symmetrical smile. MUSCULOSKELETAL: Normal extremities with adequate strength and full range of motion. LYMPHATICS: No significant lymphadenopathy is noted PSYCHIATRIC: Normal psychiatric evaluation. Course Vital Signs 01/14/20 01/14/20 01/14/20 13:48 14:27 14:34 Temperature 98.4 F Pulse Rate 104 H 98 Respiratory 18 20 Rate Blood Pressure 179/97 O2 Sat by Pulse 89 L Oximetry 01/14/20 01/14/20 14:36 14:49 Temperature Pulse Rate 100 112 H Respiratory Rate Blood Pressure O2 Sat by Pulse Oximetry Medical Decision Making - Medical Decision Making EKG shows sinus tachycardia at [address] interval 250 QRS is 82 QT interval 3:30 QTC is 459 patient's EKG shows no ST segment patient depression. Chest x-ray shows no acute abnormality. Patient received 3 breathing treatments and steroids and she continued to have difficulty breathing is tachycardic and was sent in on 2 L of oxygen at about 92%. I spoke with Dr. Felton and he agreed to admit the patient admitted the patient I wrote admitting orders. - Lab Data Result diagrams: 01/14/20 14:07 01/14/20 14:07 Lab Results 01/14/20 01/14/20 01/14/20 Range/Units 14:07 14:07 14:07 WBC 4.3 (3.8-10.6) k/uL RBC 4.35 (3.80-5.40) m/uL Hgb 13.7 (11.4-16.0) gm/dL Hct 41.9 (34.0-46.0) % MCV 96.1 (80.0-100.0) fL MCH 31.5 (25.0-35.0) pg MCHC 32.8 (31.0-37.0) g/dL RDW 13.2 (11.5-15.5) % Plt Count 78 L (150-450) k/uL Neutrophils % 81 % Lymphocytes % 9 % Monocytes % 5 % Eosinophils % 2 % Basophils % 2 % Neutrophils # 3.5 (1.3-7.7) k/uL Lymphocytes # 0.4 L (1.0-4.8) k/uL Monocytes # 0.2 (0-1.0) k/uL Eosinophils # 0.1 (0-0.7) k/uL Basophils # 0.1 (0-0.2) k/uL Manual Slide Review Performed PT (9.0-12.0) sec INR (<1.2) APTT (22.0-30.0) sec Sodium 136 L (137-145) mmol/L Potassium 3.9 (3.5-5.1) mmol/L Chloride 106 (98-107) mmol/L Carbon Dioxide 19 L (22-30) mmol/L Anion Gap 11 mmol/L BUN 11 (7-17) mg/dL Creatinine 0.74 (0.52-1.04) mg/dL Est GFR (CKD-EPI)AfAm >90 (>60 ml/min/1.73 sqM) Est GFR (CKD-EPI)NonAf 82 (>60 ml/min/1.73 sqM) Glucose 123 H (74-99) mg/dL Plasma Lactic Acid Brennan 0.7 (0.7-2.0) mmol/L Calcium 9.3 (8.4-10.2) mg/dL Magnesium 1.9 (1.6-2.3) mg/dL Total Bilirubin 0.6 (0.2-1.3) mg/dL AST 51 H (14-36) U/L ALT 29 (4-34) U/L Alkaline Phosphatase 113 (38-126) U/L Troponin I (0.000-0.034) ng/mL Total Protein 7.6 (6.3-8.2) g/dL Albumin 4.4 (3.5-5.0) g/dL 01/14/20 01/14/20 Range/Units 14:07 14:07 WBC (3.8-10.6) k/uL RBC (3.80-5.40) m/uL Hgb (11.4-16.0) gm/dL Hct (34.0-46.0) % MCV (80.0-100.0) fL MCH (25.0-35.0) pg MCHC (31.0-37.0) g/dL RDW (11.5-15.5) % Plt Count (150-450) k/uL Neutrophils % % Lymphocytes % % Monocytes % % Eosinophils % % Basophils % % Neutrophils # (1.3-7.7) k/uL Lymphocytes # (1.0-4.8) k/uL Monocytes # (0-1.0) k/uL Eosinophils # (0-0.7) k/uL Basophils # (0-0.2) k/uL Manual Slide Review PT 10.1 (9.0-12.0) sec INR 1.0 (<1.2) APTT 25.4 (22.0-30.0) sec Sodium (137-145) mmol/L Potassium (3.5-5.1) mmol/L Chloride (98-107) mmol/L Carbon Dioxide (22-30) mmol/L Anion Gap mmol/L BUN (7-17) mg/dL Creatinine (0.52-1.04) mg/dL Est GFR (CKD-EPI)AfAm (>60 ml/min/1.73 sqM) Est GFR (CKD-EPI)NonAf (>60 ml/min/1.73 sqM) Glucose (74-99) mg/dL Plasma Lactic Acid Brennan (0.7-2.0) mmol/L Calcium (8.4-10.2) mg/dL Magnesium (1.6-2.3) mg/dL Total Bilirubin (0.2-1.3) mg/dL AST (14-36) U/L ALT (4-34) U/L Alkaline Phosphatase (38-126) U/L Troponin I <0.012 (0.000-0.034) ng/mL Total Protein (6.3-8.2) g/dL Albumin (3.5-5.0) g/dL Critical Care Time Critical Care Time: Yes Total Critical Care Time: 35 Disposition Clinical Impression: COPD with acute exacerbation Disposition: ADMITTED IP TO THIS HOSP Referrals: None,Stated [Primary Care Provider] - 1-2 days Time of Disposition: 15:16
[2020-01-14 14:25] LABS: Basophils # (A) 0.1 k/uL (0-0.2); Basophils % (A) 2 %; Eosinophils # (A) 0.1 k/uL (0-0.7); Eosinophils % (A) 2 %; HCT 41.9 % (34.0-46.0); HGB 13.7 gm/dL (11.4-16.0); Lymphocytes # (A) 0.4 k/uL (1.0-4.8); Lymphocytes % (A) 9 %; MCH 31.5 pg (25.0-35.0); MCHC 32.8 g/dL (31.0-37.0); MCV 96.1 fL (80.0-100.0); Mean Platelet Volume 9.8; Monocytes # (A) 0.2 k/uL (0-1.0); Monocytes % (A) 5 %; Neutrophils # (A) 3.5 k/uL (1.3-7.7); Neutrophils % (A) 81 %; RBC 4.35 m/uL (3.80-5.40); RDW 13.2 % (11.5-15.5); WBC 4.3 k/uL (3.8-10.6)
[2020-01-14 14:29] LABS: Partial Thromboplastin Time 25.4 sec (22.0-30.0); Prothrombin Time 10.1 sec (9.0-12.0)
[2020-01-14 14:38] LABS: ALT 29 U/L (4-34); AST 51 U/L (14-36); African American GFR (CKD) >90 (>60 ml/min/1.73 sqM); Albumin 4.4 g/dL (3.5-5.0); Alkaline Phosphatase 113 U/L (38-126); Anion Gap 11 mmol/L; Blood Urea Nitrogen 11 mg/dL (7-17); Calcium 9.3 mg/dL (8.4-10.2); Carbon Dioxide 19 mmol/L (22-30); Chloride 106 mmol/L (98-107); Glucose 123 mg/dL (74-99); Magnesium 1.9 mg/dL (1.6-2.3); Non-African American GFR(CKD) 82 (>60 ml/min/1.73 sqM); Potassium 3.9 mmol/L (3.5-5.1); Sodium 136 mmol/L (137-145); Total Bilirubin 0.6 mg/dL (0.2-1.3); Total Protein 7.6 g/dL (6.3-8.2)
[2020-01-14 14:49] LABS: Platelet Count 78 k/uL (150-450)
[2020-01-14] MEDS ORDERED: cefTRIAXone IN SWFI 1,000 MG/10 ML SYRINGE IVP STA (15:14)
[2020-01-14] MEDS ORDERED: IPRATROPIUM-ALBUTEROL 3 ML NEB INHALATION PRN ×2 (15:17→18:20)
[2020-01-14] MEDS ORDERED: AZITHROMYCIN 500 MG in SODIUM CHLORIDE 0.9% 250 ML IVPB STA (15:20)
--- NOTE | 2020-01-14 15:24 | XR ---
EXAMINATION TYPE: XR chest 2V DATE OF EXAM: 01/14/2020 COMPARISON: 07/04/2019 HISTORY: Difficulty breathing TECHNIQUE: FINDINGS: Heart and mediastinum are normal. Lungs are clear of infiltrate. There is thoracolumbar spi ne posterior fusion surgery. There is no hilar masses. There is minimal subsegmental atelectasis left costophrenic angle. IMPRESSION: Minimal atelectasis left lung base improved compared to last exam. Normal heart.
[2020-01-14] MEDS ORDERED: methylPREDNISolone SOD SUCCI 125 MG/2 ML VIAL IV SCH (18:00)
[2020-01-14] MEDS: IPRATROPIUM-ALBUTEROL 3 ML NEB INHALATION SCH ×2 (19:18→23:44)
[2020-01-14] MEDS: BUDESONIDE 0.5 MG/2 ML NEBU INHALATION SCH (19:18)
[2020-01-14] MEDS: oxyCODONE-APAP 7.5-325MG 1 EACH TAB PO PRN (19:19)
[2020-01-14] MEDS: busPIRone HCl 10 MG TAB PO SCH (20:12)
[2020-01-14] MEDS: NAPROXEN 250 MG TAB PO SCH (20:12)
[2020-01-14] MEDS: risperiDONE 2 MG TAB PO SCH (20:13)
[2020-01-14] MEDS: traZODone HCL 100 MG TAB PO SCH (20:13)
[2020-01-14 20:22] LABS: Glucose,Whole Blood 175 mg/dL (75-99)
[2020-01-14] MEDS: INSULIN ASPART (NovoLOG) 100 UNIT/ML VIAL SQ SCH (21:03)
[2020-01-14] MEDS: GABAPENTIN 400 MG CAP PO SCH (21:04)
[2020-01-14] MEDS: methylPREDNISolone SOD SUCCI 40 MG/ML 1 ML VIAL IV SCH (23:24)
[2020-01-15] MEDS: IPRATROPIUM-ALBUTEROL 3 ML NEB INHALATION SCH ×5 (03:39→19:59)
[2020-01-15] MEDS: oxyCODONE-APAP 7.5-325MG 1 EACH TAB PO PRN ×4 (04:21→21:13)
[2020-01-15] MEDS: LEVOTHYROXINE 50 MCG TAB PO SCH (05:30)
[2020-01-15 06:56] LABS: Glucose,Whole Blood 128 mg/dL (75-99)
[2020-01-15] MEDS: INSULIN ASPART (NovoLOG) 100 UNIT/ML VIAL SQ SCH ×4 (07:27→21:50)
[2020-01-15] MEDS: BUDESONIDE 0.5 MG/2 ML NEBU INHALATION SCH ×2 (07:44→20:00)
[2020-01-15] MEDS: SERTRALINE 100 MG TAB PO SCH (08:43)
[2020-01-15] MEDS: NAPROXEN 250 MG TAB PO SCH ×2 (08:43→21:12)
[2020-01-15] MEDS: methylPREDNISolone SOD SUCCI 40 MG/ML 1 ML VIAL IV SCH ×2 (08:44→16:04)
[2020-01-15] MEDS: busPIRone HCl 10 MG TAB PO SCH ×2 (08:44→21:13)
[2020-01-15] MEDS: GABAPENTIN 400 MG CAP PO SCH ×3 (08:44→21:14)
[2020-01-15] MEDS: RALOXIFENE 60 MG TAB PO SCH (08:44)
[2020-01-15] MEDS: PANTOPRAZOLE 40 MG TABLET PO SCH (08:44)
[2020-01-15 11:40] LABS: Glucose,Whole Blood 122 mg/dL (75-99)
[2020-01-15] MEDS ORDERED: AZITHROMYCIN 500 MG in SODIUM CHLORIDE 0.9% 250 ML IVPB SCH (16:00)
[2020-01-15 16:45] LABS: Glucose,Whole Blood 113 mg/dL (75-99)
--- NOTE | 2020-01-15 19:49 | PN ---
PROGRESS NOTE CHIEF COMPLAINT: Exacerbation of COPD. HISTORY OF PRESENT ILLNESS: This lady is comfortable and slightly improved, but still very congested, wheezing and short of breath. PHYSICAL EXAMINATION: Vital signs are normal. Head, ears, eyes, nose, mouth, and throat were normal. Neck veins not distended. Breath sounds are still diminished throughout with inspiratory and expiratory wheezing and scattered rales and occasional rhonchi. She has a productive cough. Cardiac exam is normal. Abdomen is soft and nontender. IMPRESSION: Exacerbation of chronic obstructive pulmonary disease. PLAN: Continue with current plan and treatment. MMODL / IJN: [id number] /
[2020-01-15] MEDS: traZODone HCL 100 MG TAB PO SCH (21:14)
[2020-01-15] MEDS: risperiDONE 2 MG TAB PO SCH (21:14)
[2020-01-15 21:37] LABS: Glucose,Whole Blood 140 mg/dL (75-99)
[2020-01-16] MEDS: IPRATROPIUM-ALBUTEROL 3 ML NEB INHALATION SCH ×6 (00:02→20:39)
[2020-01-16] MEDS: methylPREDNISolone SOD SUCCI 40 MG/ML 1 ML VIAL IV SCH ×4 (00:17→23:34)
[2020-01-16] MEDS: LEVOTHYROXINE 50 MCG TAB PO SCH (05:35)
[2020-01-16 07:12] LABS: Glucose,Whole Blood 128 mg/dL (75-99)
[2020-01-16] MEDS: INSULIN ASPART (NovoLOG) 100 UNIT/ML VIAL SQ SCH ×4 (07:42→22:02)
[2020-01-16] MEDS: NAPROXEN 250 MG TAB PO SCH ×2 (07:54→21:06)
[2020-01-16] MEDS: GABAPENTIN 400 MG CAP PO SCH ×3 (08:02→21:06)
[2020-01-16] MEDS: PANTOPRAZOLE 40 MG TABLET PO SCH (08:03)
[2020-01-16] MEDS: RALOXIFENE 60 MG TAB PO SCH (08:03)
[2020-01-16] MEDS: SERTRALINE 100 MG TAB PO SCH (08:03)
[2020-01-16] MEDS: busPIRone HCl 10 MG TAB PO SCH ×2 (08:07→21:06)
[2020-01-16] MEDS: BUDESONIDE 0.5 MG/2 ML NEBU INHALATION SCH ×2 (08:35→20:39)
--- NOTE | 2020-01-16 09:29 | HP ---
HISTORY AND PHYSICAL CHIEF COMPLAINT: Difficulty breathing. HISTORY OF PRESENT ILLNESS: This is the first known admission for this lady who was brought in from [place]. She has a history of COPD and she continues to smoke. She denies any recent upper respiratory infections, hemoptysis, chest pain, etc. REVIEW OF SYSTEMS: She has had no CVAs, TIAs, problems with vision or hearing, heart disease, hypertension, murmurs, rheumatic fever, orthopnea, PND, abdominal pain, nausea, vomiting, hematemesis, melena, hematochezia, colitis, diverticulosis, diverticulitis, hemorrhoids, jaundice, hepatitis, cirrhosis, renal failure, dysuria, frequency, urgency, etc. She did have carcinoma of the kidney in 2010 without sequelae. She is not diabetic. ALLERGIC: PENICILLIN. Surgically she has had 3 procedures on her LS spine and 2 on her neck. She also has a significant wrist problem in that apparently there was a fracture before that was treated and then she went on to develop osteomyelitis. 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 It is completely unstable. She apparently recently developed a small area of infection on the dorsum of the wrist and her physician feels that this is possibly related to osteomyelitis. She continues to smoke a pack of cigarettes a day. PHYSICAL EXAMINATION: Blood pressure is 138/64 with a pulse of 92, respirations of 38, and she is afebrile. In general, she appeared to be in some respiratory distress. Skin was dry and she was pale. Head, ears, eyes, nose, mouth, and throat were normal. Neck veins not distended. Carotids normal. Chest demonstrated increased AP diameter with very poor breath sounds with scattered rales and rhonchi and an expiratory wheeze and prolonged expiratory phase. Cardiac exam demonstrates sinus tachycardia. Abdomen is soft and nontender. Extremities are normal except for the right wrist which is completely unstable. She had very little function in the hand and fingers. Neurologically she is intact. She is admitted to the hospital with diagnoses: 1. Exacerbation of chronic obstructive pulmonary disease. 2. 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 3. History of carcinoma of the kidney. PLAN: 1. Bed rest. 2. IV fluids. 3. IV and inhaled steroids. 4. [facility] and p.r.n. MMODL / NIXONN: [id number] /
[2020-01-16] MEDS: LISINOPRIL 20 MG TAB PO SCH (11:33)
[2020-01-16 11:42] LABS: Hemoglobin A1C 5.3 % (4.0-6.0)
[2020-01-16 11:58] LABS: Glucose,Whole Blood 105 mg/dL (75-99)
[2020-01-16] MEDS: AZITHROMYCIN 500 MG TAB PO SCH (16:59)
[2020-01-16 17:00] LABS: Glucose,Whole Blood 89 mg/dL (75-99)
[2020-01-16] MEDS: oxyCODONE-APAP 7.5-325MG 1 EACH TAB PO PRN ×2 (17:04→22:03)
[2020-01-16] MEDS: NICOTINE 21MG/24HR PATCH TRANSDERM SCH (19:24)
--- NOTE | 2020-01-16 19:47 | PN ---
PROGRESS NOTE CHIEF COMPLAINT: Exacerbation of COPD and hypertension. HISTORY OF PRESENT ILLNESS: This lady's breathing is improved slightly, but her blood pressure is significantly elevated. REVIEW OF SYSTEMS: She has had no headaches, chest pain, etc. PHYSICAL EXAMINATION: Chest demonstrates very poor breath sounds with persistent wheezing on inspiration and expiration and scattered rales and rhonchi. The cardiac exam is normal. The abdomen is soft and nontender. Extremities are normal. IMPRESSION: 1. Exacerbation of chronic obstructive pulmonary disease. 2. Hypertension. PLAN: 1. Continue on current pulmonary program. 2. Treat hypertension. MMODL / IJN: [id number] /
[2020-01-16 20:07] LABS: Glucose,Whole Blood 145 mg/dL (75-99)
[2020-01-16] MEDS: traZODone HCL 100 MG TAB PO SCH (21:06)
[2020-01-16] MEDS: risperiDONE 2 MG TAB PO SCH (21:07)
[2020-01-17] MEDS: IPRATROPIUM-ALBUTEROL 3 ML NEB INHALATION SCH ×6 (00:33→20:49)
[2020-01-17] MEDS: oxyCODONE-APAP 7.5-325MG 1 EACH TAB PO PRN ×4 (04:24→21:52)
[2020-01-17] MEDS: LEVOTHYROXINE 50 MCG TAB PO SCH (05:39)
[2020-01-17 07:34] LABS: Glucose,Whole Blood 117 mg/dL (75-99)
[2020-01-17] MEDS: INSULIN ASPART (NovoLOG) 100 UNIT/ML VIAL SQ SCH ×4 (07:52→21:49)
[2020-01-17] MEDS: LISINOPRIL 20 MG TAB PO SCH (07:52)
[2020-01-17] MEDS: NAPROXEN 250 MG TAB PO SCH ×2 (07:53→21:38)
[2020-01-17] MEDS: PANTOPRAZOLE 40 MG TABLET PO SCH (07:53)
[2020-01-17] MEDS: GABAPENTIN 400 MG CAP PO SCH ×3 (07:53→21:39)
[2020-01-17] MEDS: methylPREDNISolone SOD SUCCI 40 MG/ML 1 ML VIAL IV SCH ×2 (07:54→16:17)
[2020-01-17] MEDS: SERTRALINE 100 MG TAB PO SCH (07:54)
[2020-01-17] MEDS: busPIRone HCl 10 MG TAB PO SCH ×2 (07:54→21:39)
[2020-01-17] MEDS: RALOXIFENE 60 MG TAB PO SCH (07:55)
[2020-01-17] MEDS: NICOTINE 21MG/24HR PATCH TRANSDERM SCH (07:55)
[2020-01-17] MEDS: BUDESONIDE 0.5 MG/2 ML NEBU INHALATION SCH ×2 (08:25→20:49)
[2020-01-17 11:59] LABS: Glucose,Whole Blood 125 mg/dL (75-99)
--- NOTE | 2020-01-17 13:39 | PN ---
PROGRESS NOTE CHIEF COMPLAINT: Exacerbation of COPD and hypertension. HISTORY OF PRESENT ILLNESS: This lady's breathing is slowly improving. She is still very congested and wheezy. She is still very short of breath. Blood pressure is down. PHYSICAL EXAMINATION: Blood pressure 138/85. Head, ears, eyes, nose, mouth, and throat are normal. The chest demonstrates persistent wheezing, rales and rhonchi throughout both lung hewitt. Cardiac exam is normal. Abdomen is soft, nontender. IMPRESSION: 1. Exacerbation of chronic obstructive pulmonary disease. 2. Hypertension. PLAN: Progress activity and probably home in the next day or 2 if she continues to improve. MMODL / IJN: [id number] /
[2020-01-17 17:21] LABS: Glucose,Whole Blood 124 mg/dL (75-99)
[2020-01-17] MEDS: AZITHROMYCIN 500 MG TAB PO SCH (17:56)
[2020-01-17 21:11] LABS: Glucose,Whole Blood 130 mg/dL (75-99)
[2020-01-17] MEDS: traZODone HCL 100 MG TAB PO SCH (21:39)
[2020-01-17] MEDS: risperiDONE 2 MG TAB PO SCH (21:39)
[2020-01-17 22:56] VITALS: BP 171/89; TEMP 97.7
[2020-01-18] MEDS: methylPREDNISolone SOD SUCCI 40 MG/ML 1 ML VIAL IV SCH ×2 (00:12→08:48)
[2020-01-18] MEDS: IPRATROPIUM-ALBUTEROL 3 ML NEB INHALATION SCH ×4 (01:02→11:26)
[2020-01-18] MEDS: LEVOTHYROXINE 50 MCG TAB PO SCH (05:51)
[2020-01-18 06:39] VITALS: RESP 15
[2020-01-18 07:06] LABS: Glucose,Whole Blood 118 mg/dL (75-99)
[2020-01-18] MEDS: BUDESONIDE 0.5 MG/2 ML NEBU INHALATION SCH (08:15)
[2020-01-18] MEDS: busPIRone HCl 10 MG TAB PO SCH (08:47)
[2020-01-18] MEDS: LISINOPRIL 20 MG TAB PO SCH (08:47)
[2020-01-18] MEDS: SERTRALINE 100 MG TAB PO SCH (08:47)
[2020-01-18] MEDS: NAPROXEN 250 MG TAB PO SCH (08:47)
[2020-01-18] MEDS: GABAPENTIN 400 MG CAP PO SCH (08:47)
[2020-01-18] MEDS: PANTOPRAZOLE 40 MG TABLET PO SCH (08:47)
[2020-01-18] MEDS: NICOTINE 21MG/24HR PATCH TRANSDERM SCH (08:48)
[2020-01-18] MEDS: oxyCODONE-APAP 7.5-325MG 1 EACH TAB PO PRN (08:52)
[2020-01-18] MEDS: INSULIN ASPART (NovoLOG) 100 UNIT/ML VIAL SQ SCH ×2 (09:20→13:56)
[2020-01-18 11:39] VITALS: PULSE 84
[2020-01-18 12:10] LABS: Glucose,Whole Blood 87 mg/dL (75-99)
[2020-01-18] MEDS: RALOXIFENE 60 MG TAB PO SCH (14:37)
[2020-01-18] MEDS ORDERED: SYMBICORT 160-4.5 MCG INHALER INHALATION SCH (20:00)
--- NOTE | 2020-01-18 22:36 | DS ---
DISCHARGE SUMMARY CHIEF COMPLAINT: Difficulty breathing. HISTORY OF PRESENT ILLNESS AND PHYSICAL EXAMINATION: Details of this lady's history and physical can be found in the initial workup. LABORATORY STUDIES: While she was in the hospital, she had laboratory studies, details of which can be found in the laboratory section of her chart. COURSE IN HOSPITAL: After admission, she was placed on bedrest, started on intravenous fluids and IV and inhaled steroids as well as updrafts and she did improve. She was doing well enough it was felt she could be discharged on the . She will go home on light activity about the house and she will be set up with a nebulizer. She will go home on Medrol Dosepak and antihypertensives. FINAL DIAGNOSES: 1. Exacerbation of chronic obstructive pulmonary disease. 2. Essential hypertension. OPERATIONS: None. CONSULTATION: None. She is improved. MMPABLO / NAINA: [id number] /
[2020-01-19] MEDS ORDERED: CHLORTHALIDONE 25 MG TAB PO SCH (09:00)
[2020-01-19] MEDS ORDERED: amLODIPine 5 MG TAB PO SCH (09:00)
[2020-01-19] MEDS ORDERED: methylPREDNISolone 4 MG TAB TAPER PO SCH (09:00)
== END 2020-01-18 15:50 | disposition home health service (06) | DRG 191 ==
LOC: EC 13:37 → 6NMEDSUR 15:17 → UNDODISIN 01-17 16:30
PROVIDERS: ADMIT Family Medicine; ATTEND Family Medicine
DX: J44.1 Chronic obstructive pulmonary disease with (acute) exacerbation (principal); S62.1 Fracture of other and unspecified carpal bone(s); B19.20 Unspecified viral hepatitis C without hepatic coma; F17.210 Nicotine dependence, cigarettes, uncomplicated; I10 Essential (primary) hypertension; M79.7 Fibromyalgia; Z79.51 Long term (current) use of inhaled steroids; Z79.890 Hormone replacement therapy; Z80.1 Family history of malignant neoplasm of trachea, bronchus and lung; Z85.528 Personal history of other malignant neoplasm of kidney; Z88.6 Allergy status to analgesic agent; Z88.5 Allergy status to narcotic agent; Z88.0 Allergy status to penicillin; M19.90 Unspecified osteoarthritis, unspecified site
CPT/HCPCS: 36415; 71046; 80053; 83036; 83605; 83735; 84484; 85025; 85610; 85730; 87040; 93005; 94640; 94760; 96374; 96375; 99291

== ENCOUNTER 2021-03-07 16:57 | Inpatient (IN) | payer MEDICARE, OTHER ==
[2021-03-07 17:51] LABS: HCT 39.9 % (34.0-46.0); MCH 29.7 pg (25.0-35.0); MCHC 32.6 g/dL (31.0-37.0); MCV 91.2 fL (80.0-100.0); Mean Platelet Volume 9.9; Platelet Count 70 k/uL (150-450); Poikilocytosis Slight; RBC 4.37 m/uL (3.80-5.40); RDW 14.5 % (11.5-15.5); WBC 4.5 k/uL (3.8-10.6)
[2021-03-07 18:02] LABS: Calcium 8.9 mg/dL (8.4-10.2); Magnesium 1.8 mg/dL (1.6-2.3); Potassium 4.6 mmol/L (3.5-5.1); Total Bilirubin 1.4 mg/dL (0.2-1.3); Total Protein 6.9 g/dL (6.3-8.2)
[2021-03-07 18:12] LABS: C Reactive Protein 146.4 mg/L (<10.0)
[2021-03-07 18:18] LABS: Partial Thromboplastin Time 27.6 sec (22.0-30.0); Prothrombin Time 10.5 sec (9.0-12.0)
--- NOTE | 2021-03-07 18:19 | XR ---
EXAMINATION TYPE: XR chest 1V portable DATE OF EXAM: 03/07/2021 COMPARISON: 01/14/2020. HISTORY: Shortness of breath and cough. TECHNIQUE: Single frontal view of the chest is obtained. FINDINGS: There is diffuse moderate interstitial opacities in the left mid to lower lung and right l oly base. No pleural effusion, or pneumothorax seen. The cardiac silhouette size is within normal li mits. No acute osseous abnormality. Thoracolumbar spine fusion again seen. IMPRESSION: Left greater than right infiltrates.
[2021-03-07 18:24] LABS: D-Dimer 1.4 mg/L FEU (<0.60)
[2021-03-07 18:45] LABS: Band Neutrophils % 10 %; Lymphocytes # (M) 0.14 k/uL (1.0-4.8); Monocytes # (M) 0.05 k/uL (0-1.0); Neutrophils % (M) 86 %; Nucleated Red Blood Cells 0 /100 WBC (0-0); Total Cells Counted 100
--- NOTE | 2021-03-07 19:02 | ED ---
General Adult HPI - General Chief complaint: Shortness of Breath Stated complaint: sob/aches/cough Time Seen by Provider: 03/07/21 17:19 Source: patient, EMS, RN notes reviewed, old records reviewed Mode of arrival: EMS Limitations: no limitations - History of Present Illness Initial comments: 70-year-old female presenting with cough, dyspnea, fatigue and myalgias. Symptoms have been present for approximately one week. She has a known contact with rotavirus.. She does report poor appetite, nausea vomiting and diarrhea. No central chest pain. She does have a general chest tightness associated with cough. - Related Data Home Medications Medication Instructions Recorded Confirmed Raloxifene [Evista] 60 mg PO DAILY 02/07/15 01/14/20 Sertraline HCl [Zoloft] 200 mg PO DAILY 02/07/15 01/14/20 Gabapentin 800 mg PO TID 04/05/15 01/14/20 Levothyroxine Sodium [Synthroid] 50 mcg PO DAILY 04/05/15 01/14/20 risperiDONE [RisperDAL] 2 mg PO HS 04/05/15 01/14/20 Ergocalciferol [Vitamin D2 50,000 unit PO Q30D 06/26/16 01/14/20 (DRISDOL)] Budesonide-Formot 160-4.5 Mcg 2 puff INHALATION RT-BID 08/28/16 01/14/20 [Symbicort 160-4.5 Mcg Inhaler] Pantoprazole Sodium [Protonix] 40 mg PO DAILY 08/28/16 01/14/20 Naproxen Sodium [Naproxen Sodium 500 mg PO BID 07/03/19 01/14/20 ER] oxyCODONE-APAP 7.5-325MG [Percocet 1 tab PO Q6H PRN 07/03/19 01/14/20 7.5-325 mg] Ascorbic Acid [Vitamin C] 500 mg PO DAILY 01/14/20 01/14/20 Atorvastatin [Lipitor] 10 mg PO DAILY 01/14/20 01/14/20 Calcium Carbonate [Calcium] 600 mg PO DAILY 01/14/20 01/14/20 Sulfamethox-Tmp 800-160Mg [Bactrim 1 tab PO BID 01/14/20 01/14/20 DS 800-160 mg] busPIRone HCl [Buspar] 10 mg PO BID 01/14/20 01/14/20 tiZANidine [Zanaflex] 4 mg PO TID PRN 01/14/20 01/14/20 traZODone HCL 100 mg PO HS 01/14/20 01/14/20 Previous Rx's Medication Instructions Recorded Docusate [Colace] 100 mg PO BID #60 capsule 10/01/16 Azithromycin [Zithromax] 500 mg PO Q24H #7 tab 01/18/20 Budesonide-Formot 160-4.5 Mcg 2 puff INHALATION BID #1 inhaler 01/18/20 [Symbicort 160-4.5 Mcg Inhaler] Budesonide-Formot 160-4.5 Mcg 2 puff INHALATION RT-BID 30 Days 01/18/20 [Symbicort 160-4.5 Mcg Inhaler] #1 inhaler Ipratropium-Albuterol Nebulize 3 ml INHALATION RT-Q4H #120 ml 01/18/20 [Duoneb 0.5 mg-3 mg/3 ml Soln] Nicotine 21Mg/24Hr Patch [Habitrol] 0.21 patch TRANSDERM DAILY #30 01/18/20 patch amLODIPine [Norvasc] 5 mg PO DAILY #30 tab 01/18/20 lisinopriL [Zestril] 40 mg PO DAILY #30 tab 01/18/20 methylPREDNISolone Dose Pack 24 mg PO DAILY #1 tab 01/18/20 [Medrol Dose Pack] Allergies Allergy/AdvReac Type Severity Reaction Status Date / Time Penicillins Allergy Dyspnea Verified 03/07/21 17:12 aspirin AdvReac Nausea & Verified 03/07/21 17:12 Vomiting morphine AdvReac Hallucinati Verified 03/07/21 17:12 ons Review of Systems ROS Statement: Those systems with pertinent positive or pertinent negative responses have been documented in the HPI. ROS Other: All systems not noted in ROS Statement are negative. Past Medical History Past Medical History: Cancer, COPD, Fibromyalgia, Osteoarthritis (OA) Additional Past Medical History / Comment(s): Hepatitis C; Kidney Ca (spots were removed) History of Any Multi-Drug Resistant Organisms: None Reported Past Surgical History: Back Surgery, Orthopedic Surgery Additional Past Surgical History / Comment(s): Kidney Surgery, right wrist Past Anesthesia/Blood Transfusion Reactions: No Reported Reaction Past Psychological History: Depression Past Alcohol Use History: Occasional Past Drug Use History: None Reported - Past Family History Father Family Medical History: Cancer Additional Family Medical History / Comment(s): LUNG CA Mother Family Medical History: Osteoarthritis (OA) General Exam Limitations: no limitations General appearance: alert, in distress Head exam: Present: atraumatic, normocephalic Eye exam: Present: normal appearance, PERRL ENT exam: Present: mucous membranes dry Neck exam: Present: normal inspection. Absent: tenderness, meningismus Respiratory exam: Present: rhonchi, decreased breath sounds. Absent: respiratory distress, wheezes Cardiovascular Exam: Present: regular rate, normal rhythm GI/Abdominal exam: Present: soft. Absent: distended, tenderness, guarding Extremities exam: Present: normal inspection, normal capillary refill. Absent: pedal edema Neurological exam: Present: alert, oriented X3, CN II-XII intact. Absent: motor sensory deficit Psychiatric exam: Present: normal affect, normal mood Skin exam: Present: warm, dry, intact. Absent: cyanosis, diaphoretic Course Vital Signs 03/07/21 03/07/21 03/07/21 17:00 17:12 17:58 Temperature 98.4 F Pulse Rate 69 Respiratory 18 18 Rate Blood Pressure 103/57 O2 Sat by Pulse 89 L 90 L Oximetry 03/07/21 03/07/21 18:12 19:16 Temperature Pulse Rate 76 77 Respiratory 18 18 Rate Blood Pressure 123/58 115/78 O2 Sat by Pulse 90 L 90 L Oximetry EKG Findings - EKG Comments: EKG Findings:: EKG: Normal sinus rhythm, rate of 77, AR interval 144, QRS duration 84, QTC 448, no ST segment elevation. Left anterior fascicular block. Procedures - [place] Protocol (Time Out) Nurse: Elizabeth Castañeda Medical Decision Making - Medical Decision Making 70-year-old female presenting with hypoxia, cough, dyspnea and fatigue. She is positive for rotavirus. Chest x-ray showed bilateral infiltrate. She has an elevated d-dimer 1.4. CT angiography negative for pulmonary embolism, confirming bilateral pneumonia. She has a minimal lactic acid 2.7. She is 90% on 5 L nasal cannula. She will be admitted for coronavirus pneumonia with pulmonology on consult. Case discussed with Dr. Oliver - Lab Data Result diagrams: 03/07/21 17:38 03/07/21 17:38 Lab Results 03/07/21 03/07/21 03/07/21 Range/Units 17:38 17:38 17:38 WBC 4.5 (3.8-10.6) k/uL RBC 4.37 (3.80-5.40) m/uL Hgb 13.0 (11.4-16.0) gm/dL Hct 39.9 (34.0-46.0) % MCV 91.2 (80.0-100.0) fL MCH 29.7 (25.0-35.0) pg MCHC 32.6 (31.0-37.0) g/dL RDW 14.5 (11.5-15.5) % Plt Count 70 L (150-450) k/uL MPV 9.9 Neutrophils % (Manual) 86 % Band Neuts % (Manual) 10 % Lymphocytes % (Manual) 3 % Monocytes % (Manual) 1 % Neutrophils # (Manual) 4.30 (1.3-7.7) k/uL Lymphocytes # (Manual) 0.14 L (1.0-4.8) k/uL Monocytes # (Manual) 0.05 (0-1.0) k/uL Nucleated RBCs 0 (0-0) /100 WBC Manual Slide Review Performed Poikilocytosis Slight PT 10.5 (9.0-12.0) sec INR 1.0 (<1.2) APTT 27.6 (22.0-30.0) sec D-Dimer 1.40 H (<0.60) mg/L FEU Sodium 137 (137-145) mmol/L Potassium 4.6 (3.5-5.1) mmol/L Chloride 103 (98-107) mmol/L Carbon Dioxide 18 L (22-30) mmol/L Anion Gap 16 mmol/L BUN 20 H (7-17) mg/dL Creatinine 1.04 (0.52-1.04) mg/dL Est GFR (CKD-EPI)AfAm 62 (>60 ml/min/1.73 sqM) Est GFR (CKD-EPI)NonAf 54 (>60 ml/min/1.73 sqM) Glucose 117 H (74-99) mg/dL Lactic Ac Sepsis Rflx Plasma Lactic Acid Brennan (0.7-2.0) mmol/L Calcium 8.9 (8.4-10.2) mg/dL Magnesium 1.8 (1.6-2.3) mg/dL Total Bilirubin 1.4 H (0.2-1.3) mg/dL AST 42 H (14-36) U/L ALT 23 (4-34) U/L Alkaline Phosphatase 180 H (38-126) U/L Lactate Dehydrogenase 710 H (313-618) U/L C-Reactive Protein 146.4 H (<10.0) mg/L Total Protein 6.9 (6.3-8.2) g/dL Albumin 4.0 (3.5-5.0) g/dL Coronavirus (PCR) (Not Detectd) 03/07/21 03/07/21 03/07/21 Range/Units 17:38 17:38 18:15 WBC (3.8-10.6) k/uL RBC (3.80-5.40) m/uL Hgb (11.4-16.0) gm/dL Hct (34.0-46.0) % MCV (80.0-100.0) fL MCH (25.0-35.0) pg MCHC (31.0-37.0) g/dL RDW (11.5-15.5) % Plt Count (150-450) k/uL MPV Neutrophils % (Manual) % Band Neuts % (Manual) % Lymphocytes % (Manual) % Monocytes % (Manual) % Neutrophils # (Manual) (1.3-7.7) k/uL Lymphocytes # (Manual) (1.0-4.8) k/uL Monocytes # (Manual) (0-1.0) k/uL Nucleated RBCs (0-0) /100 WBC Manual Slide Review Poikilocytosis PT (9.0-12.0) sec INR (<1.2) APTT (22.0-30.0) sec D-Dimer (<0.60) mg/L FEU Sodium (137-145) mmol/L Potassium (3.5-5.1) mmol/L Chloride (98-107) mmol/L Carbon Dioxide (22-30) mmol/L Anion Gap mmol/L BUN (7-17) mg/dL Creatinine (0.52-1.04) mg/dL Est GFR (CKD-EPI)AfAm (>60 ml/min/1.73 sqM) Est GFR (CKD-EPI)NonAf (>60 ml/min/1.73 sqM) Glucose (74-99) mg/dL Lactic Ac Sepsis Rflx Y Plasma Lactic Acid Brennan 2.7 H* (0.7-2.0) mmol/L Calcium (8.4-10.2) mg/dL Magnesium (1.6-2.3) mg/dL Total Bilirubin (0.2-1.3) mg/dL AST (14-36) U/L ALT (4-34) U/L Alkaline Phosphatase (38-126) U/L Lactate Dehydrogenase (313-618) U/L C-Reactive Protein (<10.0) mg/L Total Protein (6.3-8.2) g/dL Albumin (3.5-5.0) g/dL Coronavirus (PCR) Detected A (Not Detectd) Critical Care Time Critical Care Time: Yes Total Critical Care Time: 35 Disposition Clinical Impression: Pneumonia due to COVID-19 virus Disposition: ADMITTED IP TO THIS [facility] Condition: Stable Is patient prescribed a controlled substance at d/c from ED?: No Referrals: Michael Valdovinos DO [Primary Care Provider] - 1-2 days Decision to Admit Reason: Admit from EC Decision Date: 03/07/21 Decision Time: 20:34
[2021-03-07] MEDS ORDERED: DEXAMETHASONE SOD PHOSPHATE 10 MG/ML 1 ML VIAL IV STA (20:04)
--- NOTE | 2021-03-07 20:25 | CT ---
EXAMINATION TYPE: CT angio chest DATE OF EXAM: 03/07/2021 7:42 PM COMPARISON: Same-day radiograph. CT 04/09/2015. HISTORY: Covid, difficulty breathing. CT DLP: 395.9 mGycm Automated exposure control for dose reduction was used. CONTRAST: CTA scan of the thorax is performed with IV Contrast, patient injected with 80 mL of Isovue 370, pulm onary embolism protocol. MIP images are created and reviewed. FINDINGS: LUNGS: There is large confluent opacity in the right upper lobe and moderate in the right lower lobe. Additional bilateral scattered patchy groundglass opacities are also seen There is no pleural effus ion or pneumothorax seen. The tracheobronchial tree is patent. MEDIASTINUM: There is satisfactory enhancement of the pulmonary artery and its branches, there is no CT evidence for pulmonary embolism. There are scattered multiple borderline to mildly enlarged media stinal lymph nodes, may be reactive. Moderate thoracic aorta and coronary atherosclerotic disease. N o pericardial effusion is seen. OTHER: Chronic left ninth and 10th rib fractures seen. Splenomegaly with multiple small benign splen ic calcifications, in keeping with prior granulomatous disease. Partially imaged thoracolumbar fusion . IMPRESSION: BILATERAL OPACITIES, COMPATIBLE WITH HISTORY OF COVID PNEUMONIA. NO ACUTE PE. SPLENOMEGALY. ADDITIONAL CHRONIC AND INCIDENTAL FINDINGS ABOVE.
[2021-03-07] MEDS ORDERED: NALOXONE 0.4 MG/ML 1 ML VIAL IV PRN (20:31)
[2021-03-08] MEDS ORDERED: NICOTINE 21MG/24HR PATCH TRANSDERM PRN (00:42)
--- NOTE | 2021-03-08 00:44 | P.HPIM ---
History of Present Illness H&P Date: 03/07/21 Patient is a 70-year-old female with an extensive PMH including asthma, hypertension, hyperlipidemia, and hypothyroidism who presented to the emergency room with complaints of cough, shortness of breath, and fatigue. The patient reports that her symptoms started one week ago and that they have gradually worsened. She notes that her daughter was recently ill with COVID. Reports cough productive of gray colored phlegm along with shortness of breath, and diffuse body aches and subjective fevers. Also reports poor appetite with some diarrhea and subsequently decreased oral intake. Denied chest pain, vomiting, headaches, visual disturbances, numbness, or tingling. On presentation, the patient was hypoxic to 89% SpO2 on room air. The patient underwent an extensive evaluation in the emergency room with EKG showing normal sinus rhythm at [address]/T-wave changes noted as reviewed by me. Chest CTA was consistent with COVID pneumonia within no acute PE seen. Laboratory evaluation was remarkable for a platelet count of 70, lactic acid 2.7, total bilirubin 1.4, AST 42, alk phos 180, CRP 146, and Covid PCR positive. Review of Systems Pertinent positives and negatives as discussed in HPI, a complete review of systems was performed and all other systems are negative. Past Medical History Past Medical History: Cancer, COPD, Fibromyalgia, Osteoarthritis (OA) Additional Past Medical History / Comment(s): Hepatitis C; Kidney Ca (spots were removed) History of Any Multi-Drug Resistant Organisms: None Reported Past Surgical History: Back Surgery, Orthopedic Surgery Additional Past Surgical History / Comment(s): Kidney Surgery, right wrist Past Anesthesia/Blood Transfusion Reactions: No Reported Reaction Past Psychological History: Depression Past Alcohol Use History: Occasional Past Drug Use History: None Reported - Past Family History Father Family Medical History: Cancer Additional Family Medical History / Comment(s): LUNG CA Mother Family Medical History: Osteoarthritis (OA) Medications and Allergies Home Medications Medication Instructions Recorded Confirmed Type Raloxifene [Evista] 60 mg PO DAILY 02/07/15 03/07/21 History Sertraline HCl [Zoloft] 200 mg PO DAILY 02/07/15 03/07/21 History Gabapentin 800 mg PO TID 04/05/15 03/07/21 History Levothyroxine Sodium [Synthroid] 50 mcg PO DAILY 04/05/15 03/07/21 History risperiDONE [RisperDAL] 2 mg PO HS 04/05/15 03/07/21 History Pantoprazole Sodium [Protonix] 40 mg PO DAILY 08/28/16 03/07/21 History Docusate [Colace] 100 mg PO BID #60 capsule 10/01/16 03/07/21 Rx oxyCODONE-APAP 7.5-325MG [Percocet 1 tab PO Q6H PRN 07/03/19 03/07/21 History 7.5-325 mg] Ascorbic Acid [Vitamin C] 500 mg PO DAILY 01/14/20 03/07/21 History Atorvastatin [Lipitor] 10 mg PO DAILY 01/14/20 03/07/21 History Calcium Carbonate [Calcium] 600 mg PO DAILY 01/14/20 03/07/21 History busPIRone HCl [Buspar] 10 mg PO BID 01/14/20 03/07/21 History tiZANidine [Zanaflex] 4 mg PO TID PRN 01/14/20 03/07/21 History traZODone HCL 100 mg PO HS 01/14/20 03/07/21 History Budesonide-Formot 160-4.5 Mcg 2 puff INHALATION RT-BID 30 Days 01/18/20 03/07/21 Rx [Symbicort 160-4.5 Mcg Inhaler] #1 inhaler amLODIPine [Norvasc] 5 mg PO DAILY #30 tab 01/18/20 03/07/21 Rx lisinopriL [Zestril] 40 mg PO DAILY #30 tab 01/18/20 03/07/21 Rx Naproxen 500 mg PO BID PRN 03/07/21 03/07/21 History Nicotine 21Mg/24Hr Patch [Habitrol] 1 patch TRANSDERM DAILY PRN 03/07/21 03/07/21 History Allergies Allergy/AdvReac Type Severity Reaction Status Date / Time Penicillins Allergy Dyspnea Verified 03/07/21 21:18 aspirin AdvReac Nausea & Verified 03/07/21 21:18 Vomiting morphine AdvReac Hallucinati Verified 03/07/21 21:18 ons Physical Exam Vitals: Vital Signs Temp Pulse Resp BP Pulse Ox 03/07/21 19:16 77 18 115/78 90 L 03/07/21 18:12 76 18 123/58 90 L 03/07/21 17:58 18 03/07/21 17:12 90 L 03/07/21 17:00 98.4 F 69 18 103/57 89 L Intake and Output 03/07/21 03/07/21 03/07/21 06:59 14:59 22:59 Other: Weight 79.379 kg General: non toxic, no distress, appears at stated age, overweight Derm: no unusual rashes/lesions no unusual ecchymoses, warm, dry Head: atraumatic, normocephalic, symmetric Eyes: EOMI, no lid lag, anicteric sclera, pupils equal round reactive to light ENT: Nose and ears atraumatic, no thrush, no pharyngeal erythema Neck: No thyromegaly, no cervical lymphadenopathy, trachea midline, supple Mouth: no lip lesion, mucus membranes moist Cardiovascular: S1S2 reg, no murmur, positive posterior tibial pulse bilateral, no edema, capillary refill less than 2 seconds Lungs: Bilateral rhonchi, no wheezing, no accessory muscle use Abdominal: soft, nontender to palpation, no guarding, no appreciable organomegaly, normal bowel sounds Ext: no gross muscle atrophy, muscle strength 5 out of 5 in all 4 extremities grossly, right wrist deformity with wrist drop, no contractures, Neuro: CN II-XI grossly intact, light touch intact all 4 extremities, finger to nose within normal limits, Psych: Alert, oriented, appropriate affect Results CBC & Chem 7: 03/07/21 17:38 03/07/21 17:38 Labs: Abnormal Lab Results - Last 24 Hours (Table) 03/07/21 03/07/21 03/07/21 Range/Units 17:38 17:38 17:38 Plt Count 70 L (150-450) k/uL Lymphocytes # (Manual) 0.14 L (1.0-4.8) k/uL D-Dimer 1.40 H (<0.60) mg/L FEU Carbon Dioxide 18 L (22-30) mmol/L BUN 20 H (7-17) mg/dL Glucose 117 H (74-99) mg/dL Plasma Lactic Acid Brennan (0.7-2.0) mmol/L Total Bilirubin 1.4 H (0.2-1.3) mg/dL AST 42 H (14-36) U/L Alkaline Phosphatase 180 H (38-126) U/L Lactate Dehydrogenase 710 H (313-618) U/L C-Reactive Protein 146.4 H (<10.0) mg/L Coronavirus (PCR) (Not Detectd) 03/07/21 03/07/21 Range/Units 17:38 17:38 Plt Count (150-450) k/uL Lymphocytes # (Manual) (1.0-4.8) k/uL D-Dimer (<0.60) mg/L FEU Carbon Dioxide (22-30) mmol/L BUN (7-17) mg/dL Glucose (74-99) mg/dL Plasma Lactic Acid Brennan 2.7 H* (0.7-2.0) mmol/L Total Bilirubin (0.2-1.3) mg/dL AST (14-36) U/L Alkaline Phosphatase (38-126) U/L Lactate Dehydrogenase (313-618) U/L C-Reactive Protein (<10.0) mg/L Coronavirus (PCR) Detected A (Not Detectd) Assessment and Plan Plan: COVID pneumonitis with acute hypoxic respiratory failure -C/w Decadron, Lovenox, Vit C, Vit D, Melatonin -Monitor inflammatory markers -Supplemental oxygen -Pulmonary consult Lactic acidosis -Monitor to resolution Thrombocytopenia -Likely secondary to acute stressor -Monitor for now Chronic conditions: COPD, hypertension, hyperlipidemia, hypothyroidism -Continue with home medications -Hold antihypertensives in setting of borderline BP DVT prophylaxis -Lovenox The patient is admitted with an anticipated greater than 2 midnight stay for evaluation of COVID CODE STATUS: Full Code Discussed with: patient Anticipated discharge date: 3-[address]: Home A total of 35 minutes was spent on the care of this complex patient more than 50% of the time was spent in counseling and care coordination.
[2021-03-08] MEDS: oxyCODONE-APAP 7.5-325MG 1 EACH TAB PO PRN ×3 (00:58→17:49)
[2021-03-08] MEDS: MELATONIN 5 MG TABLET PO PRN (00:58)
[2021-03-08 03:34] LABS: Ferritin 484.2 ng/mL (10.0-291.0)
[2021-03-08] MEDS: LEVOTHYROXINE 50 MCG TAB PO SCH (06:14)
[2021-03-08] MEDS: SYMBICORT 160-4.5 MCG INHALER INHALATION SCH ×2 (07:26→22:31)
[2021-03-08] MEDS: ASCORBIC ACID 500 MG TAB PO SCH (08:36)
[2021-03-08] MEDS: ATORVASTATIN 10 MG TAB PO SCH (08:36)
[2021-03-08] MEDS: dexAMETHasone 2 MG TAB PO SCH (08:36)
[2021-03-08] MEDS: busPIRone HCl 10 MG TAB PO SCH ×2 (08:36→20:49)
[2021-03-08] MEDS: GABAPENTIN 400 MG CAP PO SCH ×3 (08:36→20:48)
[2021-03-08] MEDS: CALCIUM CARBONATE 500 MG CHEWABLE PO SCH (08:36)
[2021-03-08] MEDS: PANTOPRAZOLE 40 MG TABLET PO SCH (08:36)
[2021-03-08] MEDS: ENOXAPARIN 40 MG/0.4 ML SYRINGE SQ SCH (08:37)
[2021-03-08] MEDS ORDERED: ACETAMINOPHEN TAB 325 MG TAB PO PRN (10:16)
[2021-03-08] MEDS: lisinopriL 20 MG TAB PO SCH (10:22)
[2021-03-08] MEDS: amLODIPine 5 MG TAB PO SCH (10:22)
[2021-03-08] MEDS: SERTRALINE 100 MG TAB PO SCH (10:22)
[2021-03-08 10:31] LABS: HCT 38.9 % (37.2-46.3); HGB 12.8 g/dL (12.0-15.0); MCHC 32.9 g/dL (32.0-37.0); MCV 91.3 fL (80.0-97.0); Mean Platelet Volume 13.1 fL (9.5-12.2); Platelet Count 69 X 10*3/uL (140-440); RBC 4.26 X 10*6/uL (4.10-5.20); RDW 14.1 % (11.5-14.5); WBC 5.38 X 10*3/uL (4.50-10.00)
[2021-03-08] MEDS: RALOXIFENE 60 MG TAB PO SCH (11:33)
--- NOTE | 2021-03-08 12:05 | P.PN ---
Subjective Progress Note Date: 03/08/21 No new complaints today. Has chronic back pain issues, for which her home pain meds were restarted with the exception of motrin. Objective - Vital Signs Vital signs: Vital Signs Temp 98.1 F 03/08/21 08:19 Pulse 82 03/08/21 10:13 Resp 24 03/08/21 10:13 BP 195/80 03/08/21 10:00 Pulse Ox 93 L 03/08/21 08:40 Intake & Output 03/07/21 03/08/21 03/08/21 18:59 06:59 18:59 Weight 79.379 kg 79.379 kg Other: Voiding Method Toilet - Exam Gen: awake, alert HEENT: normocephalic, atraumatic, good hearing acuity, moist mucous membranes Resp: good air exchange, breathing comfortably with no accessory muscle use CVS: good distal perfusion x 4, GI: soft, NTTP, ND : no SPT, no CVAT, fraga catheter not present MSK: no pitting edema, no clubbing, contracture of the right upper extremity Neuro: non-focal, moving all extremities Psych: cooperative, euthymic mood - Labs CBC & Chem 7: 03/08/21 04:11 03/07/21 17:38 Labs: Abnormal Lab Results - Last 24 Hours (Table) 03/07/21 03/07/21 03/07/21 Range/Units 17:38 17:38 17:38 Plt Count 70 L (150-450) k/uL MPV (9.5-12.2) fL Lymphocytes # (Manual) 0.14 L (1.0-4.8) k/uL Immature Plt Fraction (1.1-6.1) % D-Dimer 1.40 H (<0.60) mg/L FEU Carbon Dioxide 18 L (22-30) mmol/L BUN 20 H (7-17) mg/dL Glucose 117 H (74-99) mg/dL Plasma Lactic Acid Brennan (0.7-2.0) mmol/L Ferritin 484.2 H (10.0-291.0) ng/mL Total Bilirubin 1.4 H (0.2-1.3) mg/dL AST 42 H (14-36) U/L Alkaline Phosphatase 180 H (38-126) U/L Lactate Dehydrogenase 710 H (313-618) U/L C-Reactive Protein 146.4 H (<10.0) mg/L Coronavirus (PCR) (Not Detectd) 03/07/21 03/07/21 03/08/21 Range/Units 17:38 17:38 04:11 Plt Count 69 L (150-450) k/uL MPV 13.1 H (9.5-12.2) fL Lymphocytes # (Manual) (1.0-4.8) k/uL Immature Plt Fraction 8.1 H (1.1-6.1) % D-Dimer (<0.60) mg/L FEU Carbon Dioxide (22-30) mmol/L BUN (7-17) mg/dL Glucose (74-99) mg/dL Plasma Lactic Acid Brennan 2.7 H* (0.7-2.0) mmol/L Ferritin (10.0-291.0) ng/mL Total Bilirubin (0.2-1.3) mg/dL AST (14-36) U/L Alkaline Phosphatase (38-126) U/L Lactate Dehydrogenase (313-618) U/L C-Reactive Protein (<10.0) mg/L Coronavirus (PCR) Detected A (Not Detectd) Assessment and Plan Assessment: COVID pneumonitis with acute hypoxic respiratory failure -C/w Decadron, Lovenox, Vit C, Vit D, Melatonin -Monitor inflammatory markers -Supplemental oxygen -Pulmonary consult Lactic acidosis -Monitor to resolution Thrombocytopenia -Likely secondary to acute stressor -Monitor for now Chronic conditions: COPD, hypertension, hyperlipidemia, hypothyroidism -Continue with home medications -Hold antihypertensives in setting of borderline BP DVT prophylaxis -Lovenox The patient is admitted with an anticipated greater than 2 midnight stay for evaluation of COVID CODE STATUS: Full Code Discussed with: patient Anticipated discharge date: 3-[address]: Home
[2021-03-08 12:11] LABS: Albumin 4.5 g/dL (3.80-4.90); Albumin/Globulin Ratio 2.14 (1.60-3.17); Anion Gap 13.3 mmol/L (4.00-12.00); BUN/Creat Ratio 25.56 Ratio (12.00-20.00); Calcium 9.2 mg/dL (8.7-10.3); Carbon Dioxide 16.7 mmol/L (21.6-31.8); Globulin 2.1 g/dL (1.6-3.3); Non-African American GFR(CKD) 63.9 (60.0-200.0); Potassium 5.2 mmol/L (3.5-5.5); Total Bilirubin 0.6 mg/dL (0.3-1.2); Total Protein 6.6 g/dL (6.2-8.2)
--- NOTE | 2021-03-08 16:22 | P.CNPUL ---
History of Present Illness Consult date: 03/08/21 Requesting physician: Asher Omalley Reason for consult: dyspnea, cough, abnormal CXR/CT Chief complaint: Dyspnea, hypoxia, cough, myalgias History of present illness: This is a 70-year-old white female patient with past medical history of advanced COPD used to wear oxygen at one point, currently not on any home oxygen, former smoker, hep C treated with Harvoni, osteoarthritis, fibromyalgia, who came to the emergency department on 03/07/2021 for evaluation of cough, dyspnea, fatigue and myalgias, her symptoms have been present for approximately one week. Patient has no contact with coronavirus. In addition she has poor appetite, nausea, vomiting and diarrhea, she has anginal chest tightness without central chest pain. Chest x-ray shows diffuse moderate interstitial opacities in the left mid to lower lung and right lung base, no pleural effusion or pneumothorax. CTA chest shows bilateral opacities. Admission labs showed white blood cell, 4.5, hemoglobin 13, platelet count of 70, lymphocyte count of 0.14, d-dimer is 1.40, sodium is 137, potassium is 4.6, chloride is 103, CO2 is 18, BUN is 20, creatinine is 1.04. Plasma lactic acid is 2.7, ferritin level is 484, total bilirubin is 1.4, AST is 42, ALT is 23, alkaline phosphatase is 180, LDH is 710, CRP is 146.4, pro calcitonin level is 0.11, COVID 19 PCR. She is currently on 4 L of oxygen process between 92-95%, she is afebrile, still dyspneic, but no acute distress. Patient was started on Decadron, vitamins, and we'll start the patient on Remdesivir Review of Systems All systems: negative Constitutional: Denies chills, Denies fever Eyes: denies blurred vision, denies pain Ears, nose, mouth and throat: Denies headache, Denies sore throat Cardiovascular: Denies chest pain, Denies shortness of breath Respiratory: Reports cough, Reports dyspnea Gastrointestinal: Denies abdominal pain, Denies diarrhea, Denies nausea, Denies vomiting Genitourinary: Denies dysuria, Denies hematuria Musculoskeletal: Denies myalgias Integumentary: Denies pruritus, Denies rash Neurological: Denies numbness, Denies weakness Psychiatric: Denies anxiety, Denies depression Endocrine: Denies fatigue, Denies weight change Past Medical History Past Medical History: Cancer, COPD, Fibromyalgia, Osteoarthritis (OA), Pneumonia, Rheumatoid Arthritis (RA) Additional Past Medical History / Comment(s): Pt tested covid + 03/07/21 [facility] ER. 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 L hand and ulcer on L wrist History of Any Multi-Drug Resistant Organisms: None Reported Past Surgical History: Back Surgery, Hysterectomy, Joint Replacement, Orthopedic Surgery Additional Past Surgical History / Comment(s): L partial nephrectomy, R wrist surgery for fracture, 3 L spine surgeries, 2 cervical surgeries, L hemiarthroplasty d/t fracture, colonoscopy Past Anesthesia/Blood Transfusion Reactions: No Reported Reaction Smoking Status: Former smoker - Past Family History Father Family Medical History: Cancer Additional Family Medical History / Comment(s): LUNG CA Mother Family Medical History: Osteoarthritis (OA) Medications and Allergies Home Medications Medication Instructions Recorded Confirmed Type Raloxifene [Evista] 60 mg PO DAILY 02/07/15 03/07/21 History Sertraline HCl [Zoloft] 200 mg PO DAILY 02/07/15 03/07/21 History Gabapentin 800 mg PO TID 04/05/15 03/07/21 History Levothyroxine Sodium [Synthroid] 50 mcg PO DAILY 04/05/15 03/07/21 History risperiDONE [RisperDAL] 2 mg PO HS 04/05/15 03/07/21 History Pantoprazole Sodium [Protonix] 40 mg PO DAILY 08/28/16 03/07/21 History Docusate [Colace] 100 mg PO BID #60 capsule 10/01/16 03/07/21 Rx oxyCODONE-APAP 7.5-325MG [Percocet 1 tab PO Q6H PRN 07/03/19 03/07/21 History 7.5-325 mg] Ascorbic Acid [Vitamin C] 500 mg PO DAILY 01/14/20 03/07/21 History Atorvastatin [Lipitor] 10 mg PO DAILY 01/14/20 03/07/21 History Calcium Carbonate [Calcium] 600 mg PO DAILY 01/14/20 03/07/21 History busPIRone HCl [Buspar] 10 mg PO BID 01/14/20 03/07/21 History tiZANidine [Zanaflex] 4 mg PO TID PRN 01/14/20 03/07/21 History traZODone HCL 100 mg PO HS 01/14/20 03/07/21 History Budesonide-Formot 160-4.5 Mcg 2 puff INHALATION RT-BID 30 Days 01/18/20 03/07/21 Rx [Symbicort 160-4.5 Mcg Inhaler] #1 inhaler amLODIPine [Norvasc] 5 mg PO DAILY #30 tab 01/18/20 03/07/21 Rx lisinopriL [Zestril] 40 mg PO DAILY #30 tab 01/18/20 03/07/21 Rx Naproxen 500 mg PO BID PRN 03/07/21 03/07/21 History Nicotine 21Mg/24Hr Patch [Habitrol] 1 patch TRANSDERM DAILY PRN 03/07/21 03/07/21 History Allergies Allergy/AdvReac Type Severity Reaction Status Date / Time Penicillins Allergy Dyspnea Verified 03/07/21 21:18 aspirin AdvReac Nausea & Verified 03/07/21 21:18 Vomiting morphine AdvReac Hallucinati Verified 03/07/21 21:18 ons Physical Exam Vitals: Vital Signs Temp Pulse Pulse Pulse Resp BP BP 03/08/21 14:00 98.4 F 80 18 150/84 03/08/21 11:49 98.1 F 86 16 160/88 03/08/21 10:13 82 24 03/08/21 10:00 195/80 03/08/21 08:40 82 24 193/101 03/08/21 08:19 98.1 F 98 22 206/104 03/08/21 06:00 63 20 132/78 03/08/21 04:00 71 19 132/78 03/08/21 03:00 69 18 112/78 03/08/21 02:00 73 18 112/76 03/07/21 23:00 84 18 118/68 03/07/21 22:00 74 18 117/71 03/07/21 21:00 70 19 115/72 03/07/21 20:00 67 18 116/76 03/07/21 19:16 77 18 115/78 03/07/21 18:12 76 18 123/58 03/07/21 17:58 18 03/07/21 17:12 03/07/21 17:00 98.4 F 69 18 103/57 Pulse Ox 03/08/21 14:00 95 03/08/21 11:49 92 L 03/08/21 10:13 03/08/21 10:00 03/08/21 08:40 93 L 03/08/21 08:19 03/08/21 06:00 96 03/08/21 04:00 94 L 03/08/21 03:00 96 03/08/21 02:00 98 03/07/21 23:00 98 03/07/21 22:00 92 L 03/07/21 21:00 91 L 03/07/21 20:00 92 L 03/07/21 19:16 90 L 03/07/21 18:12 90 L 03/07/21 17:58 03/07/21 17:12 90 L 03/07/21 17:00 89 L Intake and Output 03/08/21 03/08/21 03/08/21 06:59 14:59 22:59 Other: Voiding Method Toilet Weight 79.379 kg GENERAL EXAM: Alert, pleasant, 70-year-old white female patient currently on 4 L of oxygen with a pulse ox between 92-95% comfortable in no apparent distress. HEAD: Normocephalic/atraumatic. EYES: Normal reaction of pupils, equal size. Conjunctiva pink, sclera white. NOSE: Clear with pink turbinates. THROAT: No erythema or exudates. NECK: No masses, no JVD, no thyroid enlargement, no adenopathy. CHEST: No chest wall deformity. Symmetrical expansion. LUNGS: Equal air entry with his crackles and rhonchi CVS: Regular rate and rhythm, normal S1 and S2, no gallops, no murmurs, no rubs ABDOMEN: Soft, nontender. No hepatosplenomegaly, normal bowel sounds, no guarding or rigidity. EXTREMITIES: No clubbing, no edema, no cyanosis, 2+ pulses and upper and lower extremities. MUSCULOSKELETAL: Muscle strength and tone normal. Patient has deformity of the right arm, with history of multiple previous surgeries, extensive bone and nerve damage SPINE: No scoliosis or deformity SKIN: No rashes CENTRAL NERVOUS SYSTEM: Alert and oriented -3. No focal deficits, tone is normal in all 4 extremities. PSYCHIATRIC: Alert and oriented -3. Appropriate affect. Intact judgment and insight. Results - Laboratory Findings CBC and BMP: 03/08/21 04:11 03/08/21 04:11 PT/INR, D-dimer PT 10.5 sec (9.0-12.0) 03/07/21 17:38 INR 1.0 (<1.2) 03/07/21 17:38 D-Dimer 1.40 mg/L FEU (<0.60) H 03/07/21 17:38 Abnormal lab findings: Abnormal Labs 03/07/21 03/07/21 03/07/21 17:38 17:38 17:38 Plt Count 70 L MPV Lymphocytes # (Manual) 0.14 L Immature Plt Fraction D-Dimer 1.40 H Carbon Dioxide 18 L Anion Gap BUN 20 H BUN/Creatinine Ratio Glucose 117 H Plasma Lactic Acid Brennan Ferritin 484.2 H Total Bilirubin 1.4 H AST 42 H Alkaline Phosphatase 180 H Lactate Dehydrogenase 710 H C-Reactive Protein 146.4 H Procalcitonin Coronavirus (PCR) 03/07/21 03/07/21 03/07/21 17:38 17:38 17:38 Plt Count MPV Lymphocytes # (Manual) Immature Plt Fraction D-Dimer Carbon Dioxide Anion Gap BUN BUN/Creatinine Ratio Glucose Plasma Lactic Acid Brennan 2.7 H* Ferritin Total Bilirubin AST Alkaline Phosphatase Lactate Dehydrogenase C-Reactive Protein Procalcitonin 0.11 H Coronavirus (PCR) Detected A 03/08/21 03/08/21 04:11 04:11 Plt Count 69 L MPV 13.1 H Lymphocytes # (Manual) Immature Plt Fraction 8.1 H D-Dimer Carbon Dioxide 16.7 L Anion Gap 13.30 H BUN BUN/Creatinine Ratio 25.56 H Glucose 135 H Plasma Lactic Acid Brennan Ferritin Total Bilirubin AST 36 H Alkaline Phosphatase 195 H Lactate Dehydrogenase C-Reactive Protein Procalcitonin Coronavirus (PCR) - Diagnostic Findings Chest x-ray: report reviewed, image reviewed CT scan - chest: report reviewed, image reviewed Additional studies: EKG reviewed Assessment and Plan Plan: Assessment: #1. Acute hypoxic respiratory failure related to acute COVID 19 pneumonia, with onset of symptoms within 1 week of presentation, patient will be started on the Remdesivir treatment today on 03/08/2021 #2. Advanced COPD, used to wear home oxygen in the past, but most recently has not required it, #3. Osteoarthritis #4. History of hepatitis C, treated with hormone #5. Former smoker #6. History of multiple surgeries involving her right wrist, with extensive joint and nerve damage. Patient was recommended to have right upper arm amputation however she opted against amputation #7. Fibromyalgia #8. Depression #9. Increased d-dimer without CT evidence of pulmonary embolism Plan: Patient is within the window for Remdesivir, we will get the treatment started today, continue with Decadron, continue inhalers, continue prophylactic dose Lovenox, we'll continue to follow her clinical course closely and make recommendations accordingly I performed a history & physical examination of the patient and discussed their management with my nurse practitioner, Lucia Kinsey. I reviewed the nurse practitioner's note and agree with the documented findings and plan of care. Lung sounds are positive for diminished breath sounds with bilateral crackles. The findings and the impression was discussed with the patient. I attest to the documentation by the nurse practitioner. Time with Patient: Greater than 30
[2021-03-08] MEDS ORDERED: REMDESIVIR 200 MG in SODIUM CHLORIDE 0.9% 250 ML IVPB ONE (17:00)
[2021-03-08] MEDS: guaiFENesin 600 MG TABLET.ER PO PRN (17:49)
[2021-03-08] MEDS: risperiDONE 2 MG TAB PO SCH (20:49)
[2021-03-08] MEDS: DOCUSATE 100 MG CAP PO SCH (20:49)
[2021-03-08] MEDS: traZODone HCL 100 MG TAB PO SCH (20:49)
[2021-03-08] MEDS: BENZONATATE 100 MG CAP PO PRN (21:46)
[2021-03-09] MEDS ORDERED: hydrALAZINE HCL 25 MG TAB PO STA (00:21)
[2021-03-09] MEDS: LEVOTHYROXINE 50 MCG TAB PO SCH (05:45)
[2021-03-09] MEDS: SYMBICORT 160-4.5 MCG INHALER INHALATION SCH (08:48)
[2021-03-09] MEDS: ENOXAPARIN 40 MG/0.4 ML SYRINGE SQ SCH (08:55)
[2021-03-09] MEDS: amLODIPine 5 MG TAB PO SCH (08:56)
[2021-03-09] MEDS: CALCIUM CARBONATE 500 MG CHEWABLE PO SCH (08:56)
[2021-03-09] MEDS: dexAMETHasone 2 MG TAB PO SCH (08:57)
[2021-03-09] MEDS: GABAPENTIN 400 MG CAP PO SCH ×3 (08:57→20:36)
[2021-03-09] MEDS: lisinopriL 20 MG TAB PO SCH (08:57)
[2021-03-09] MEDS: busPIRone HCl 10 MG TAB PO SCH ×2 (08:57→20:37)
[2021-03-09] MEDS: ATORVASTATIN 10 MG TAB PO SCH (08:57)
[2021-03-09] MEDS: ASCORBIC ACID 500 MG TAB PO SCH (08:57)
[2021-03-09] MEDS: RALOXIFENE 60 MG TAB PO SCH (08:57)
[2021-03-09] MEDS: SERTRALINE 100 MG TAB PO SCH (08:57)
[2021-03-09] MEDS: PANTOPRAZOLE 40 MG TABLET PO SCH (08:57)
--- NOTE | 2021-03-09 11:57 | P.PN ---
Subjective Progress Note Date: 03/09/21 Principal diagnosis: Acute hypoxic respiratory failure secondary to acute coVID 19 pneumonia This is a 70-year-old white female patient with past medical history of advanced COPD used to wear oxygen at one point, currently not on any home oxygen, former smoker, hep C treated with Harvoni, osteoarthritis, fibromyalgia, who came to the emergency department on 03/07/2021 for evaluation of cough, dyspnea, fatigue and myalgias, her symptoms have been present for approximately one week. Patient has no contact with coronavirus. In addition she has poor appetite, nausea, vomiting and diarrhea, she has anginal chest tightness without central chest pain. Chest x-ray shows diffuse moderate interstitial opacities in the left mid to lower lung and right lung base, no pleural effusion or pneumothorax. CTA chest shows bilateral opacities. Admission labs showed white blood cell, 4.5, hemoglobin 13, platelet count of 70, lymphocyte count of 0.14, d-dimer is 1.40, sodium is 137, potassium is 4.6, chloride is 103, CO2 is 18, BUN is 20, creatinine is 1.04. Plasma lactic acid is 2.7, ferritin level is 484, total bilirubin is 1.4, AST is 42, ALT is 23, alkaline phosphatase is 180, LDH is 710, CRP is 146.4, pro calcitonin level is 0.11, COVID 19 PCR. She is currently on 4 L of oxygen process between 92-95%, she is afebrile, still dyspneic, but no acute distress. Patient was started on Decadron, vitamins, and we'll start the patient on Remdesivir Patient was reevaluated today on 03/09/2021, patient remains on 6 L high flow nasal cannula, O2 sats is 91%. Patient tells me that she feels short of breath, no cough no wheezing no fever no chills. Her T-max yesterday was 99.6 today temperature is 98.3. Her WBC count is 5.4, basic metabolic profile is normal renal profile is normal LDH on admission was 710 and C-reactive protein was 146. D-dimer 1.40 platelets are 70,000. Objective - Vital Signs Vital signs: Vital Signs Temp 98.3 F 03/09/21 10:19 Pulse 112 H 03/09/21 10:19 Resp 20 03/09/21 10:19 BP 162/92 04/10/21 10:19 Pulse Ox 91 L 03/09/21 10:19 Intake & Output 03/08/21 03/09/21 03/09/21 18:59 06:59 18:59 Weight 79.379 kg Other: Voiding Method Toilet Bedside Commode # Voids 1 2 # Bowel Movements 1 - Exam Physical Exam: Revealed 70-year-old female in no distress, on 6 L high flow nasal cannula. Head: Atraumatic, normocephalic. HEENT:[Neck is supple.] [No neck masses.] [No thyromegaly.] [No JVD.] Chest: [Crackles bilaterally no rhonchi and no wheezes. Cardiac Exam: [Normal S1 and S2, no S3 gallop, no murmur.] Abdomen: [Soft, nontender, no megaly, no rebound, no guarding, normal bowel sounds.] Extremities: [No clubbing, no edema, no cyanosis.] Neurological Exam: [No focal neurologic deficit.] Alert oriented 3. Psychiatric: Normal mood affect and normal mental status examination. Skin: No rashes - Labs CBC & Chem 7: 03/08/21 04:11 03/08/21 04:11 Labs: Abnormal Lab Results - Last 24 Hours (Table) 03/07/21 03/08/21 Range/Units 17:38 04:11 Carbon Dioxide 16.7 L (21.6-31.8) mmol/L Anion Gap 13.30 H (4.00-12.00) mmol/L BUN/Creatinine Ratio 25.56 H (12.00-20.00) Ratio Glucose 135 H (70-110) mg/dL AST 36 H (13-35) U/L Alkaline Phosphatase 195 H (41-126) U/L Procalcitonin 0.11 H (0.02-0.09) ng/mL Assessment and Plan Assessment: Impression: Acute hypoxic respiratory failure secondary to acute covID 19 pneumonia, symptoms started one week prior to presentation. History of advanced COPD, used to be on oxygen at home. Degenerative joint disease. History of hepatitis C Ex-smoker History of fibromyalgia Elevated d-dimer but no evidence of pulmonary embolism on CT angiogram. Recommendation: Continue REM Continue the Covid 19 cocktail. Continue Lovenox./Prophylactic dose. Continue Decadron. Titrate oxygen accordingly. Continue bronchodilators. We'll continue to follow. Prognosis is relatively guarded Time with Patient: Less than 30
--- NOTE | 2021-03-09 12:23 | P.PN ---
Subjective Progress Note Date: 03/09/21 No new complaints today. Tells me the sore throat and cough are getting worse. Feels very weak and tired. Objective - Vital Signs Vital signs: Vital Signs Temp 98.3 F 03/09/21 10:19 Pulse 112 H 03/09/21 10:19 Resp 20 03/09/21 10:19 BP 162/92 03/09/21 10:19 Pulse Ox 91 L 03/09/21 10:19 Intake & Output 03/08/21 03/09/21 03/09/21 18:59 06:59 18:59 Weight 79.379 kg Other: Voiding Method Toilet Bedside Commode # Voids 1 2 # Bowel Movements 1 - Exam Gen: awake, alert HEENT: normocephalic, atraumatic, good hearing acuity, moist mucous membranes Resp: good air exchange, breathing comfortably with no accessory muscle use CVS: good distal perfusion x 4, GI: soft, NTTP, ND : no SPT, no CVAT, fraga catheter not present MSK: no pitting edema, no clubbing, contracture of the right upper extremity Neuro: non-focal, moving all extremities Psych: cooperative, euthymic mood - Labs CBC & Chem 7: 03/08/21 04:11 03/08/21 04:11 Assessment and Plan Assessment: COVID pneumonitis with acute hypoxic respiratory failure -C/w Decadron, Lovenox, Vit C, Vit D, Melatonin -Monitor inflammatory markers -Supplemental oxygen -Pulmonary consult Lactic acidosis -Monitor to resolution Thrombocytopenia -Likely secondary to acute stressor -Monitor for now Chronic conditions: COPD, hypertension, hyperlipidemia, hypothyroidism -Continue with home medications -Hold antihypertensives in setting of borderline BP DVT prophylaxis -Lovenox The patient is admitted with an anticipated greater than 2 midnight stay for evaluation of COVID CODE STATUS: Full Code Discussed with: patient Anticipated discharge date: 3-[address]: Home
[2021-03-09] MEDS: DOCUSATE 100 MG CAP PO SCH ×2 (17:49→20:37)
[2021-03-09] MEDS: REMDESIVIR 100 MG in SODIUM CHLORIDE 0.9% 250 ML IVPB SCH (19:11)
[2021-03-09] MEDS: risperiDONE 2 MG TAB PO SCH (20:37)
[2021-03-09] MEDS: traZODone HCL 100 MG TAB PO SCH (20:37)
[2021-03-10] MEDS: LEVOTHYROXINE 50 MCG TAB PO SCH (05:30)
[2021-03-10] MEDS: ASCORBIC ACID 500 MG TAB PO SCH (08:59)
[2021-03-10] MEDS: SERTRALINE 100 MG TAB PO SCH (08:59)
[2021-03-10] MEDS: dexAMETHasone 2 MG TAB PO SCH (08:59)
[2021-03-10] MEDS: DOCUSATE 100 MG CAP PO SCH ×2 (08:59→20:15)
[2021-03-10] MEDS: RALOXIFENE 60 MG TAB PO SCH (08:59)
[2021-03-10] MEDS: CALCIUM CARBONATE 500 MG CHEWABLE PO SCH (08:59)
[2021-03-10] MEDS: PANTOPRAZOLE 40 MG TABLET PO SCH (08:59)
[2021-03-10] MEDS: lisinopriL 20 MG TAB PO SCH (08:59)
[2021-03-10] MEDS: amLODIPine 5 MG TAB PO SCH (08:59)
[2021-03-10] MEDS: GABAPENTIN 400 MG CAP PO SCH ×3 (08:59→20:15)
[2021-03-10] MEDS: ATORVASTATIN 10 MG TAB PO SCH (09:00)
[2021-03-10] MEDS: busPIRone HCl 10 MG TAB PO SCH ×2 (09:00→20:15)
[2021-03-10] MEDS: ENOXAPARIN 40 MG/0.4 ML SYRINGE SQ SCH (09:00)
--- NOTE | 2021-03-10 13:20 | P.PN ---
Subjective Progress Note Date: 03/10/21 Pt appears comfortable sitting up in chair today. Has had increase in oxygen requirement. Cough has gotten worse and patient would like nebulizer to help release sputum Objective - Vital Signs Vital signs: Vital Signs Temp 98.1 F 03/10/21 08:52 Pulse 121 H 03/10/21 08:52 Resp 24 03/10/21 08:52 BP 183/84 03/10/21 08:52 Pulse Ox 92 L 03/10/21 08:52 Intake & Output 03/09/21 03/10/21 03/10/21 18:59 06:59 18:59 Intake Total 480 Balance 480 Intake: Oral 480 Other: Voiding Method Bedside Commode Bedside Commode # Voids 2 2 2 # Bowel Movements 2 - Exam Gen: awake, alert HEENT: normocephalic, atraumatic, good hearing acuity, moist mucous membranes Resp: good air exchange, breathing comfortably with no accessory muscle use CVS: good distal perfusion x 4, GI: soft, NTTP, ND : no SPT, no CVAT, fraga catheter not present MSK: no pitting edema, no clubbing, contracture of the right upper extremity Neuro: non-focal, moving all extremities Psych: cooperative, euthymic mood - Labs CBC & Chem 7: 03/08/21 04:11 03/08/21 04:11 Assessment and Plan Assessment: COVID pneumonitis with acute hypoxic respiratory failure -C/w Decadron, Lovenox, Vit C, Vit D, Melatonin -Monitor inflammatory markers -Supplemental oxygen -Pulmonary consult Lactic acidosis -Monitor to resolution Thrombocytopenia -Likely secondary to acute stressor -Monitor for now Chronic conditions: COPD, hypertension, hyperlipidemia, hypothyroidism -Continue with home medications -Hold antihypertensives in setting of borderline BP DVT prophylaxis -Lovenox The patient is admitted with an anticipated greater than 2 midnight stay for evaluation of COVID CODE STATUS: Full Code Discussed with: patient Anticipated discharge date: 3-[address]: Home
[2021-03-10] MEDS: SYMBICORT 160-4.5 MCG INHALER INHALATION SCH ×2 (13:46→21:04)
[2021-03-10] MEDS: REMDESIVIR 100 MG in SODIUM CHLORIDE 0.9% 250 ML IVPB SCH (15:52)
[2021-03-10] MEDS: ALBUTEROL HFA INHALER INHALATION SCH ×2 (16:28→21:04)
--- NOTE | 2021-03-10 17:00 | P.PN ---
Subjective Progress Note Date: 03/10/21 Principal diagnosis: Acute hypoxic respiratory failure secondary to acute Covid 19 pneumonia This is a 70-year-old white female patient with past medical history of advanced COPD used to wear oxygen at one point, currently not on any home oxygen, former smoker, hep C treated with Harvoni, osteoarthritis, fibromyalgia, who came to the emergency department on 03/07/2021 for evaluation of cough, dyspnea, fatigue and myalgias, her symptoms have been present for approximately one week. Patient has no contact with coronavirus. In addition she has poor appetite, nausea, vomiting and diarrhea, she has anginal chest tightness without central chest pain. Chest x-ray shows diffuse moderate interstitial opacities in the left mid to lower lung and right lung base, no pleural effusion or pneumothorax. CTA chest shows bilateral opacities. Admission labs showed white blood cell, 4.5, hemoglobin 13, platelet count of 70, lymphocyte count of 0.14, d-dimer is 1.40, sodium is 137, potassium is 4.6, chloride is 103, CO2 is 18, BUN is 20, creatinine is 1.04. Plasma lactic acid is 2.7, ferritin level is 484, total bilirubin is 1.4, AST is 42, ALT is 23, alkaline phosphatase is 180, LDH is 710, CRP is 146.4, pro calcitonin level is 0.11, COVID 19 PCR. She is currently on 4 L of oxygen process between 92-95%, she is afebrile, still dyspneic, but no acute distress. Patient was started on Decadron, vitamins, and we'll start the patient on Remdesivir Patient was reevaluated today on 03/09/2021, patient remains on 6 L high flow nasal cannula, O2 sats is 91%. Patient tells me that she feels short of breath, no cough no wheezing no fever no chills. Her T-max yesterday was 99.6 today temperature is 98.3. Her WBC count is 5.4, basic metabolic profile is normal renal profile is normal LDH on admission was 710 and C-reactive protein was 146. D-dimer 1.40 platelets are 70,000. On 03/10/2001 patient seen in follow-up on medical surgical floor, today is Remdesivir date 3, FiO2 requirement is currently at 12 L, pulse ox is between 92-96%, still congested, coughing, lung sounds reveal diminished breath sounds with some crackles at the bases. No fever. Continues on Decadron 6 mg daily, vitamins, she is on Mucinex, he hasn't had a recent chest x-ray done for a coupl e of days, her last d-dimer was on weight 2020 and was at 1.4, no recent LDH a CRP. She states she would like a nebulizer treatment however in view of her quit positive status she cannot have a nebulizer we will order albuterol which she can have 4 times daily scheduled and as needed when necessary every 2 hours. In addition patient is on Symbicort. Objective - Vital Signs Vital signs: Vital Signs Temp 98.3 F 03/10/21 13:25 Pulse 112 H 03/10/21 13:25 Resp 18 03/10/21 13:25 BP 171/98 03/10/21 13:25 Pulse Ox 96 03/10/21 13:25 Intake & Output 03/09/21 03/10/21 03/10/21 18:59 06:59 18:59 Intake Total 480 Balance 480 Intake: Oral 480 Other: Voiding Method Bedside Commode Bedside Commode # Voids 2 2 1 # Bowel Movements 2 1 - Exam GENERAL EXAM: Alert, pleasant, 70-year-old white female patient currently on 12 L of oxygen with a pulse ox between 92-95% comfortable in no apparent distress. HEAD: Normocephalic/atraumatic. EYES: Normal reaction of pupils, equal size. Conjunctiva pink, sclera white. NOSE: Clear with pink turbinates. THROAT: No erythema or exudates. NECK: No masses, no JVD, no thyroid enlargement, no adenopathy. CHEST: No chest wall deformity. Symmetrical expansion. LUNGS: Equal air entry with his crackles and rhonchi CVS: Regular rate and rhythm, normal S1 and S2, no gallops, no murmurs, no rubs ABDOMEN: Soft, nontender. No hepatosplenomegaly, normal bowel sounds, no guarding or rigidity. EXTREMITIES: No clubbing, no edema, no cyanosis, 2+ pulses and upper and lower extremities. MUSCULOSKELETAL: Muscle strength and tone normal. Patient has deformity of the right arm, with history of multiple previous surgeries, extensive bone and nerve damage SPINE: No scoliosis or deformity SKIN: No rashes CENTRAL NERVOUS SYSTEM: Alert and oriented -3. No focal deficits, tone is normal in all 4 extremities. PSYCHIATRIC: Alert and oriented -3. Appropriate affect. Intact judgment and insight. - Labs CBC & Chem 7: 03/08/21 04:11 03/08/21 04:11 Assessment and Plan Plan: Assessment: #1. Acute hypoxic respiratory failure related to acute COVID 19 pneumonia, with onset of symptoms within 1 week of presentation, patient will be started on the Remdesivir treatment today on 03/08/2021 #2. Advanced COPD, used to wear home oxygen in the past, but most recently has not required it, #3. Osteoarthritis #4. History of hepatitis C, treated with hormone #5. Former smoker #6. History of multiple surgeries involving her right wrist, with extensive joint and nerve damage. Patient was recommended to have right upper arm amputation however she opted against amputation #7. Fibromyalgia #8. Depression #9. Increased d-dimer without CT evidence of pulmonary embolism Plan: Wean FiO2 to maintain O2 sat at 89-90%, today is day 3 of Remdesivir treatment, continue prophylactic anticoagulation, we'll switch Decadron to Solu-Medrol 40 mg every 8 hours continue vitamin cocktail, Albuterol inhaler 4 times a day and when necessary, continue Symbicort. Follow-up labs tomorrow I performed a history & physical examination of the patient and discussed their management with my nurse practitioner, Lucia Kinsey. I reviewed the nurse practitioner's note and agree with the documented findings and plan of care. Lung sounds are positive for diminished breath sounds with bilateral crackles. The findings and the impression was discussed with the patient. I attest to the documentation by the nurse practitioner. Time with Patient: Less than 30
[2021-03-10] MEDS: hydrALAZINE HCL 25 MG TAB PO PRN (17:30)
[2021-03-10] MEDS: methylPREDNISolone SOD SUCCI 40 MG/ML 1 ML VIAL IV SCH (17:30)
[2021-03-10] MEDS: MELATONIN 5 MG TABLET PO PRN (20:15)
[2021-03-10] MEDS: BENZONATATE 100 MG CAP PO PRN (20:15)
[2021-03-10] MEDS: risperiDONE 2 MG TAB PO SCH (20:15)
[2021-03-10] MEDS: traZODone HCL 100 MG TAB PO SCH (20:15)
[2021-03-11] MEDS: methylPREDNISolone SOD SUCCI 40 MG/ML 1 ML VIAL IV SCH ×4 (01:38→23:28)
[2021-03-11] MEDS: LEVOTHYROXINE 50 MCG TAB PO SCH (05:40)
[2021-03-11] MEDS: hydrALAZINE HCL 25 MG TAB PO PRN ×3 (06:00→23:38)
[2021-03-11 07:36] LABS: C Reactive Protein 127.7 mg/L (<10.0)
[2021-03-11] MEDS: lisinopriL 20 MG TAB PO SCH (07:53)
[2021-03-11] MEDS: RALOXIFENE 60 MG TAB PO SCH (07:53)
[2021-03-11] MEDS: DOCUSATE 100 MG CAP PO SCH ×2 (07:54→20:34)
[2021-03-11] MEDS: busPIRone HCl 10 MG TAB PO SCH ×2 (07:54→20:34)
[2021-03-11] MEDS: ATORVASTATIN 10 MG TAB PO SCH (07:54)
[2021-03-11] MEDS: SERTRALINE 100 MG TAB PO SCH (07:54)
[2021-03-11] MEDS: CALCIUM CARBONATE 500 MG CHEWABLE PO SCH (07:54)
[2021-03-11] MEDS: ASCORBIC ACID 500 MG TAB PO SCH (07:54)
[2021-03-11] MEDS: GABAPENTIN 400 MG CAP PO SCH ×3 (07:54→20:34)
[2021-03-11] MEDS: amLODIPine 5 MG TAB PO SCH (07:54)
[2021-03-11] MEDS: PANTOPRAZOLE 40 MG TABLET PO SCH (07:54)
[2021-03-11] MEDS: ENOXAPARIN 40 MG/0.4 ML SYRINGE SQ SCH (07:55)
[2021-03-11] MEDS: BENZONATATE 100 MG CAP PO PRN (08:02)
--- NOTE | 2021-03-11 08:37 | XR ---
EXAMINATION TYPE: XR chest 1V portable DATE OF EXAM: 03/11/2021 Comparison: 03/07/2021 Clinical History: 70-year-old female covid Findings: Heart normal size. Aorta within normal limits. Mild bilateral interstitial opacities are now present bilaterally, increased from prior. No pleural effusion or pneumothorax. Partially visualized posterio r fusion hardware in the lumbar spine. Impression: Increasing, now bilateral, interstitial infiltrates.
[2021-03-11] MEDS: ALBUTEROL HFA INHALER INHALATION SCH ×4 (09:43→20:36)
[2021-03-11] MEDS: SYMBICORT 160-4.5 MCG INHALER INHALATION SCH ×2 (09:51→21:07)
--- NOTE | 2021-03-11 15:24 | P.PN ---
Subjective Progress Note Date: 03/11/21 This is a 70-year-old white female patient with past medical history of advanced COPD used to wear oxygen at one point, currently not on any home oxygen, former smoker, hep C treated with Harvoni, osteoarthritis, fibromyalgia, who came to the emergency department on 03/07/2021 for evaluation of cough, dyspnea, fatigue and myalgias, her symptoms have been present for approximately one week. Patient has no contact with coronavirus. In addition she has poor appetite, nausea, vomiting and diarrhea, she has anginal chest tightness without central chest pain. Chest x-ray shows diffuse moderate interstitial opacities in the left mid to lower lung and right lung base, no pleural effusion or pneumothorax. CTA chest shows bilateral opacities. Admission labs showed white blood cell, 4.5, hemoglobin 13, platelet count of 70, lymphocyte count of 0.14, d-dimer is 1.40, sodium is 137, potassium is 4.6, chloride is 103, CO2 is 18, BUN is 20, creatinine is 1.04. Plasma lactic acid is 2.7, ferritin level is 484, total bilirubin is 1.4, AST is 42, ALT is 23, alkaline phosphatase is 180, LDH is 710, CRP is 146.4, pro calcitonin level is 0.11, COVID 19 PCR. She is currently on 4 L of oxygen process between 92-95%, she is afebrile, still dyspneic, but no acute distress. Patient was started on Decadron, vitamins, and we'll start the patient on Remdesivir Patient was reevaluated today on 03/09/2021, patient remains on 6 L high flow nasal cannula, O2 sats is 91%. Patient tells me that she feels short of breath, no cough no wheezing no fever no chills. Her T-max yesterday was 99.6 today temperature is 98.3. Her WBC count is 5.4, basic metabolic profile is normal renal profile is normal LDH on admission was 710 and C-reactive protein was 146. D-dimer 1.40 platelets are 70,000. On 03/10/2001 patient seen in follow-up on medical surgical floor, today is Remdesivir date 3, FiO2 requirement is currently at 12 L, pulse ox is between 92-96%, still congested, coughing, lung sounds reveal diminished breath sounds with some crackles at the bases. No fever. Continues on Decadron 6 mg daily, vitamins, she is on Mucinex, he hasn't had a recent chest x-ray done for a couple of days, her last d-dimer was on 2020 and was at 1.4, no recent LDH a CRP. She states she would like a nebulizer treatment however in view of her quit positive status she cannot have a nebulizer we will order albuterol which she can have 4 times daily scheduled and as needed when necessary every 2 hours. In addition patient is on Symbicort. On 03/11/2021, the patient is being seen in follow-up. The patient continues to have a congested cough. She is feeling slightly better compared to yesterday. Note that she is on Decadron 6 mg by mouth every morning using Mucinex was also added yesterday because of her cough and congestion. She is on 12 L about 2 by nasal cannula. Current pulse ox is 91%. The patient has a CRP of 127 and a LDH level was 848 and the d-dimer is at 1.3. A repeat chest x-ray was done today showed bilateral interstitial infiltrates, increasing compared to yesterday and the patient has mild bilateral interstitial opacities bilaterally. No evidence of any pneumothorax. The patient has fusion hardware in the lumbar spine. She is afebrile. She is hemodynamic is stable. She is known to have underlying COPD and she is not oxygen dependent. She has also history of hepatitis C that was treated along with fibromyalgia and osteoarthritis and fibromyalgia. She has also chronic deformity of the right upper extremity. Objective - Vital Signs Vital signs: Vital Signs Temp 98 F 03/11/21 14:00 Pulse 101 H 03/11/21 14:00 Resp 18 03/11/21 14:00 BP 168/96 03/11/21 14:00 Pulse Ox 91 L 03/11/21 14:00 Intake & Output 03/10/21 03/11/21 03/11/21 18:59 06:59 18:59 Intake Total 730 1260 Balance 730 1260 Intake: Intake, IV Titration 250 Amount Remdesivir 100 mg In 250 Sodium Chloride 0.9% 250 ml @ 250 mls/hr IVPB DAILY@1700 [facility] Rx#: [id number] Oral 480 1260 Other: Voiding Method Bedside Commode Bedside Commode Bedside Commode # Voids 1 3 # Bowel Movements 1 1 - Exam GENERAL EXAM: Alert, pleasant, 70-year-old white female patient currently on 12 L of oxygen with a pulse ox between 92-95% comfortable in no apparent distress. HEAD: Normocephalic/atraumatic. EYES: Normal reaction of pupils, equal size. Conjunctiva pink, sclera white. NOSE: Clear with pink turbinates. THROAT: No erythema or exudates. NECK: No masses, no JVD, no thyroid enlargement, no adenopathy. CHEST: No chest wall deformity. Symmetrical expansion. LUNGS: Equal air entry with his crackles and rhonchi CVS: Regular rate and rhythm, normal S1 and S2, no gallops, no murmurs, no rubs ABDOMEN: Soft, nontender. No hepatosplenomegaly, normal bowel sounds, no guarding or rigidity. EXTREMITIES: No clubbing, no edema, no cyanosis, 2+ pulses and upper and lower extremities. MUSCULOSKELETAL: Muscle strength and tone normal. Patient has deformity of the right arm, with history of multiple previous surgeries, extensive bone and nerve damage SPINE: No scoliosis or deformity SKIN: No rashes CENTRAL NERVOUS SYSTEM: Alert and oriented -3. No focal deficits, tone is normal in all 4 extremities. PSYCHIATRIC: Alert and oriented -3. Appropriate affect. Intact judgment and insight. - Labs CBC & Chem 7: 03/08/21 04:11 03/08/21 04:11 Labs: Abnormal Lab Results - Last 24 Hours (Table) 03/11/21 03/11/21 Range/Units 05:39 05:39 D-Dimer 1.31 H (<0.60) mg/L FEU Lactate Dehydrogenase 848 H (313-618) U/L C-Reactive Protein 127.7 H (<10.0) mg/L Assessment and Plan Plan: #1. Acute hypoxic respiratory failure related to acute COVID 19 pneumonia, with onset of symptoms within 1 week of presentation, patient will be started on the Remdesivir treatment today on 03/08/2021, and the patient is on day #4 of treatment. The patient is currently on 12 L of oxygen by nasal cannula. Chest x-ray from today showing some interval worsening in the pulmonary infiltrates. Inflammatory markers were noted. LDH is mildly elevated. The patient remains on Lovenox 40 mg subcu every 24 hours. The patient is also on IV Solu-Medrol 40 mg every 12 hours. #2. Advanced COPD, used to wear home oxygen in the past, but most recently has not required #3. Osteoarthritis #4. History of hepatitis C, treated with hormone #5. Former smoker #6. History of multiple surgeries involving her right wrist, with extensive joint and nerve damage. Patient was recommended to have right upper arm amputation however she opted against amputation #7. Fibromyalgia #8. Depression #9. Increased d-dimer without CT evidence of pulmonary embolism Plan: Continue IV Solu-Medrol Wean FiO2 to maintain O2 sat at 89-90% Day #4 of Remdesivir treatment continue prophylactic anticoagulation with Lovenox 40 mg subcu every 24 hours Symbicort for COPD Ventolin HFA 4 times a day Home medications have been resumed We'll continue to follow, b
--- NOTE | 2021-03-11 16:17 | P.PN ---
Subjective Progress Note Date: 03/11/21 Feels okay, still on 12 L of oxygen. No chest pain, no abdominal pain. Blood pressure above goal. Objective - Vital Signs Vital signs: Vital Signs Temp 98 F 03/11/21 14:00 Pulse 101 H 03/11/21 14:00 Resp 18 03/11/21 14:00 BP 168/96 03/11/21 14:00 Pulse Ox 91 L 03/11/21 14:00 Intake & Output 03/10/21 03/11/21 03/11/21 18:59 06:59 18:59 Intake Total 730 1260 Balance 730 1260 Intake: Intake, IV Titration 250 Amount Remdesivir 100 mg In 250 Sodium Chloride 0.9% 250 ml @ 250 mls/hr IVPB DAILY@1700 [facility] Rx#: [id number] Oral 480 1260 Other: Voiding Method Bedside Commode Bedside Commode Bedside Commode # Voids 1 3 # Bowel Movements 1 1 - Exam Constitutional: No acute distress, conversant, pleasant Eyes: Anicteric sclerae ENMT: NC/AT Neck:Supple, Lungs: Clear to auscultation, Clear to percussion, Normal respiratory effort, no accessory muscle use Cardiovascular: Heart regular in rate and rhythm, No murmurs, gallops, or rubs no peripheral edema Abdominal: Soft Nontender, nom distended, no guarding, no rebound or rigidity Skin: Normal temperature, tone, texture, turgor Extremities:No digital cyanosis No clubbing, Pedal pulses intact and symmetrical Radial pulses intact and symmetrical Normal gait and station, No calf tenderness Psychiatric: Alert and oriented to person, place and time, Appropriate affect Intact judgement Neuro: Muscles Strength 5/5 in all 4 extremities, Sensation to light touch grossly present throughout, Cranial nerves II-XII grossly intact. No focal sensory deficits - Labs CBC & Chem 7: 03/08/21 04:11 03/08/21 04:11 Labs: Abnormal Lab Results - Last 24 Hours (Table) 03/11/21 03/11/21 Range/Units 05:39 05:39 D-Dimer 1.31 H (<0.60) mg/L FEU Lactate Dehydrogenase 848 H (313-618) U/L C-Reactive Protein 127.7 H (<10.0) mg/L Assessment and Plan Plan: COVID pneumonitis with acute hypoxic respiratory failure -Con Decadron, Lovenox, Vit C, Vit D, Melatonin -Monitor inflammatory markers -Supplemental oxygen, 12 L. -Pulmonary consult appreciated input. Lactic acidosis -Monitor to resolution Thrombocytopenia -Likely secondary to acute stressor -Monitor , platelets 70 Chronic conditions: COPD, hypertension, hyperlipidemia, hypothyroidism -Continue with home medications Essential hypertension: Continue home medications, increase Norvasc to 10 mg DVT prophylaxis -Lovenox CODE STATUS: Full Code Discussed with: patient Anticipated discharge date: 2-[address]: Home versus rehab
[2021-03-11] MEDS ORDERED: amLODIPine 5 MG TAB PO STA (16:21)
[2021-03-11] MEDS: REMDESIVIR 100 MG in SODIUM CHLORIDE 0.9% 250 ML IVPB SCH (16:32)
[2021-03-11] MEDS: traZODone HCL 100 MG TAB PO SCH (20:34)
[2021-03-11] MEDS: risperiDONE 2 MG TAB PO SCH (21:38)
[2021-03-11] MEDS: tiZANidine 4 MG TAB PO PRN (21:38)
[2021-03-11] MEDS: oxyCODONE-APAP 7.5-325MG 1 EACH TAB PO PRN (21:41)
[2021-03-12] MEDS: LEVOTHYROXINE 50 MCG TAB PO SCH (05:36)
[2021-03-12] MEDS: ALBUTEROL HFA INHALER INHALATION SCH ×5 (07:14→21:16)
[2021-03-12] MEDS: SYMBICORT 160-4.5 MCG INHALER INHALATION SCH ×2 (07:14→21:14)
[2021-03-12] MEDS: methylPREDNISolone SOD SUCCI 40 MG/ML 1 ML VIAL IV SCH ×3 (09:23→23:01)
[2021-03-12] MEDS: ENOXAPARIN 40 MG/0.4 ML SYRINGE SQ SCH (09:23)
[2021-03-12] MEDS: PANTOPRAZOLE 40 MG TABLET PO SCH (09:25)
[2021-03-12] MEDS: busPIRone HCl 10 MG TAB PO SCH ×2 (09:25→20:20)
[2021-03-12] MEDS: RALOXIFENE 60 MG TAB PO SCH (09:25)
[2021-03-12] MEDS: lisinopriL 20 MG TAB PO SCH (09:25)
[2021-03-12] MEDS: amLODIPine 10 MG TAB PO SCH (09:25)
[2021-03-12] MEDS: GABAPENTIN 400 MG CAP PO SCH ×3 (09:26→20:20)
[2021-03-12] MEDS: DOCUSATE 100 MG CAP PO SCH ×2 (09:26→20:20)
[2021-03-12] MEDS: SERTRALINE 100 MG TAB PO SCH (09:26)
[2021-03-12] MEDS: ASCORBIC ACID 500 MG TAB PO SCH (09:26)
[2021-03-12] MEDS: ATORVASTATIN 10 MG TAB PO SCH (09:26)
[2021-03-12] MEDS: CALCIUM CARBONATE 500 MG CHEWABLE PO SCH (09:26)
[2021-03-12] MEDS: oxyCODONE-APAP 7.5-325MG 1 EACH TAB PO PRN ×2 (09:34→19:05)
[2021-03-12 09:40] LABS: HCT 36.9 % (37.2-46.3); HGB 11.7 g/dL (12.0-15.0); MCH 29.4 pg (27.0-32.0); MCHC 31.7 g/dL (32.0-37.0); MCV 92.7 fL (80.0-97.0); Mean Platelet Volume 11.1 fL (9.5-12.2); Platelet Count 165 X 10*3/uL (140-440); RBC 3.98 X 10*6/uL (4.10-5.20); RDW 13.8 % (11.5-14.5); WBC 6.65 X 10*3/uL (4.50-10.00)
[2021-03-12 11:00] LABS: Basophils # (A) 0.01 X 10*3/uL (0.00-0.10); Basophils % (A) 0.2 %; Eosinophils # (A) 0 X 10*3/uL (0.04-0.35); Eosinophils % (A) 0 %; Lymphocytes # (A) 0.49 X 10*3/uL (0.90-5.00); Lymphocytes % (A) 7.4 %; Monocytes # (A) 0.31 X 10*3/uL (0.20-1.00); Monocytes % (A) 4.7 %; Neutrophils # (A) 5.78 X 10*3/uL (1.80-7.70); Neutrophils % (A) 86.8 %
--- NOTE | 2021-03-12 13:31 | P.PN ---
Subjective Progress Note Date: 03/12/21 Feels okay, still on 12 L of oxygen. No chest pain, no abdominal pain. Blood pressure fluctuates. Objective - Vital Signs Vital signs: Vital Signs Temp 98.6 F 03/12/21 10:00 Pulse 101 H 03/12/21 10:00 Resp 20 03/12/21 10:00 BP 182/108 03/12/21 10:00 Pulse Ox 90 L 03/12/21 10:00 Intake & Output 03/11/21 03/12/21 03/12/21 18:59 06:59 18:59 Other: Voiding Method Bedside Commode Bedside Commode Bedside Commode # Voids 2 2 - Exam Constitutional: No acute distress, conversant, pleasant Eyes: Anicteric sclerae ENMT: NC/AT Neck:Supple, Lungs: Decreased breath sounds, no wheezing Abdominal: Soft Nontender, nom distended, no guarding, no rebound or rigidity Skin: Normal temperature, tone, texture, turgor Extremities:No digital cyanosis No clubbing, Pedal pulses intact and symmetrical Radial pulses intact and symmetrical Normal gait and station, No calf tenderness Psychiatric: Alert and oriented to person, place and time, Appropriate affect Intact judgement Neuro: Muscles Strength 5/5 in all 4 extremities Cranial nerves II-XII grossly intact. No focal sensory deficits - Labs CBC & Chem 7: 03/12/21 05:54 03/08/21 04:11 Labs: Abnormal Lab Results - Last 24 Hours (Table) 03/12/21 Range/Units 05:54 RBC 3.98 L (4.10-5.20) X 10*6/uL Hgb 11.7 L (12.0-15.0) g/dL Hct 36.9 L (37.2-46.3) % MCHC 31.7 L (32.0-37.0) g/dL Immature Gran # 0.06 H (0.00-0.04) X 10*3/uL Lymphocytes # 0.49 L (0.90-5.00) X 10*3/uL Eosinophils # 0 L (0.04-0.35) X 10*3/uL Assessment and Plan Plan: COVID pneumonitis with acute hypoxic respiratory failure -Con Decadron, Lovenox, Vit C, Vit D, Melatonin -Monitor inflammatory markers -Supplemental oxygen, 12 L. -Pulmonary consult appreciated input. Lactic acidosis -Monitor to resolution Thrombocytopenia -Likely secondary to acute stressor -Monitor , platelets 165 Chronic conditions: COPD, hypertension, hyperlipidemia, hypothyroidism -Continue with home medications Essential hypertension: Continue home medications, increased Norvasc to 10 mg, monitor DVT prophylaxis -Lovenox CODE STATUS: Full Code Discussed with: patient Anticipated discharge date: 2-[address]: Home versus rehab
--- NOTE | 2021-03-12 13:35 | P.PN ---
Subjective Progress Note Date: 03/12/21 This is a 70-year-old white female patient with past medical history of advanced COPD used to wear oxygen at one point, currently not on any home oxygen, former smoker, hep C treated with Harvoni, osteoarthritis, fibromyalgia, who came to the emergency department on 03/07/2021 for evaluation of cough, dyspnea, fatigue and myalgias, her symptoms have been present for approximately one week. Patient has no contact with coronavirus. In addition she has poor appetite, nausea, vomiting and diarrhea, she has anginal chest tightness without central chest pain. Chest x-ray shows diffuse moderate interstitial opacities in the left mid to lower lung and right lung base, no pleural effusion or pneumothorax. CTA chest shows bilateral opacities. Admission labs showed white blood cell, 4.5, hemoglobin 13, platelet count of 70, lymphocyte count of 0.14, d-dimer is 1.40, sodium is 137, potassium is 4.6, chloride is 103, CO2 is 18, BUN is 20, creatinine is 1.04. Plasma lactic acid is 2.7, ferritin level is 484, total bilirubin is 1.4, AST is 42, ALT is 23, alkaline phosphatase is 180, LDH is 710, CRP is 146.4, pro calcitonin level is 0.11, COVID 19 PCR. She is currently on 4 L of oxygen process between 92-95%, she is afebrile, still dyspneic, but no acute distress. Patient was started on Decadron, vitamins, and we'll start the patient on Remdesivir Patient was reevaluated today on 03/09/2021, patient remains on 6 L high flow nasal cannula, O2 sats is 91%. Patient tells me that she feels short of breath, no cough no wheezing no fever no chills. Her T-max yesterday was 99.6 today temperature is 98.3. Her WBC count is 5.4, basic metabolic profile is normal renal profile is normal LDH on admission was 710 and C-reactive protein was 146. D-dimer 1.40 platelets are 70,000. On 03/10/2001 patient seen in follow-up on medical surgical floor, today is Remdesivir date 3, FiO2 requirement is currently at 12 L, pulse ox is between 92-96%, still congested, coughing, lung sounds reveal diminished breath sounds with some crackles at the bases. No fever. Continues on Decadron 6 mg daily, vitamins, she is on Mucinex, he hasn't had a recent chest x-ray done for a couple of days, her last d-dimer was on 2020 and was at 1.4, no recent LDH a CRP. She states she would like a nebulizer treatment however in view of her quit positive status she cannot have a nebulizer we will order albuterol which she can have 4 times daily scheduled and as needed when necessary every 2 hours. In addition patient is on Symbicort. On 03/11/2021, the patient is being seen in follow-up. The patient continues to have a congested cough. She is feeling slightly better compared to yesterday. Note that she is on Decadron 6 mg by mouth every morning using Mucinex was also added yesterday because of her cough and congestion. She is on 12 L about 2 by nasal cannula. Current pulse ox is 91%. The patient has a CRP of 127 and a LDH level was 848 and the d-dimer is at 1.3. A repeat chest x-ray was done today showed bilateral interstitial infiltrates, increasing compared to yesterday and the patient has mild bilateral interstitial opacities bilaterally. No evidence of any pneumothorax. The patient has fusion hardware in the lumbar spine. She is afebrile. She is hemodynamic is stable. She is known to have underlying COPD and she is not oxygen dependent. She has also history of hepatitis C that was treated along with fibromyalgia and osteoarthritis and fibromyalgia. She has also chronic deformity of the right upper extremity. On 03/12/2021, the patient remains on 12 L approximately nasal cannula. She remains on Decadron IV Solu-Medrol. She is taking Mucinex for cough and congestion. Her pulse ox in the low 90s. She is less wheezy and less bronchospastic yesterday's evaluation. She is completing her course of Remdesivir today. The chest x-ray from yesterday was noted.. No nausea. No vomiting. No abdominal pain. CBC is within normal limits. And symmetrical m arkers are from yesterday. The patient remains on Lovenox.. . Blood pressure is on the higher side and the patient is going to take care of hypertensive medication which includes hydralazine. Objective - Vital Signs Vital signs: Vital Signs Temp 98.6 F 03/12/21 10:00 Pulse 101 H 03/12/21 10:00 Resp 20 03/12/21 10:00 BP 182/108 03/12/21 10:00 Pulse Ox 90 L 03/12/21 10:00 Intake & Output 03/11/21 03/12/21 03/12/21 18:59 06:59 18:59 Other: Voiding Method Bedside Commode Bedside Commode Bedside Commode # Voids 2 2 - Exam GENERAL EXAM: Alert, pleasant, 70-year-old white female patient currently on 12 L of oxygen with a pulse ox between 92-95% comfortable in no apparent distress. HEAD: Normocephalic/atraumatic. EYES: Normal reaction of pupils, equal size. Conjunctiva pink, sclera white. NOSE: Clear with pink turbinates. THROAT: No erythema or exudates. NECK: No masses, no JVD, no thyroid enlargement, no adenopathy. CHEST: No chest wall deformity. Symmetrical expansion. LUNGS: Equal air entry with his crackles and rhonchi CVS: Regular rate and rhythm, normal S1 and S2, no gallops, no murmurs, no rubs ABDOMEN: Soft, nontender. No hepatosplenomegaly, normal bowel sounds, no guarding or rigidity. EXTREMITIES: No clubbing, no edema, no cyanosis, 2+ pulses and upper and lower extremities. MUSCULOSKELETAL: Muscle strength and tone normal. Patient has deformity of the right arm, with history of multiple previous surgeries, extensive bone and nerve damage SPINE: No scoliosis or deformity SKIN: No rashes CENTRAL NERVOUS SYSTEM: Alert and oriented -3. No focal deficits, tone is normal in all 4 extremities. PSYCHIATRIC: Alert and oriented -3. Appropriate affect. Intact judgment and insight. - Labs CBC & Chem 7: 03/12/21 05:54 03/08/21 04:11 Labs: Abnormal Lab Results - Last 24 Hours (Table) 03/12/21 Range/Units 05:54 RBC 3.98 L (4.10-5.20) X 10*6/uL Hgb 11.7 L (12.0-15.0) g/dL Hct 36.9 L (37.2-46.3) % MCHC 31.7 L (32.0-37.0) g/dL Immature Gran # 0.06 H (0.00-0.04) X 10*3/uL Lymphocytes # 0.49 L (0.90-5.00) X 10*3/uL Eosinophils # 0 L (0.04-0.35) X 10*3/uL Assessment and Plan Plan: #1. Acute hypoxic respiratory failure related to acute COVID 19 pneumonia, with onset of symptoms within 1 week of presentation, patient will be started on the Remdesivir treatment today on 03/08/2021, and the patient is on day #5 the patient is also on IV Solu-Medrol 40 mg 12 hours. . The patient is currently on 12 L of oxygen by nasal cannula. Condition is stable. No worsening or improvement in her oxygenation. #2. Advanced COPD, used to wear home oxygen in the past, but most recently has not required #3. Osteoarthritis #4. History of hepatitis C, treated with hormone #5. Former smoker #6. History of multiple surgeries involving her right wrist, with extensive joint and nerve damage. Patient was recommended to have right upper arm amputation however she opted against amputation #7. Fibromyalgia #8. Depression #9. Increased d-dimer without CT evidence of pulmonary embolism Plan: Continue IV Solu-Medrol Wean FiO2 to maintain O2 sat at 89-90% Day #5 of Remdesivir treatment continue prophylactic anticoagulation with Lovenox 40 mg subcu every 24 hours Symbicort for COPD Ventolin HFA 4 times a day Home medications have been resumed We'll continue to follow, b
[2021-03-12] MEDS: hydrALAZINE HCL 25 MG TAB PO PRN ×2 (13:36→23:01)
[2021-03-12 14:02] LABS: African American GFR (CKD) 85.4 (60.0-200.0); Albumin 3.7 g/dL (3.80-4.90); Albumin/Globulin Ratio 1.76 (1.60-3.17); Anion Gap 11.7 mmol/L (4.00-12.00); BUN/Creat Ratio 28.75 Ratio (12.00-20.00); Calcium 8.8 mg/dL (8.7-10.3); Carbon Dioxide 16.3 mmol/L (21.6-31.8); Globulin 2.1 g/dL (1.6-3.3); Non-African American GFR(CKD) 73.7 (60.0-200.0); Potassium 4.2 mmol/L (3.5-5.5); Total Bilirubin 0.3 mg/dL (0.3-1.2); Total Protein 5.8 g/dL (6.2-8.2)
[2021-03-12] MEDS: REMDESIVIR 100 MG in SODIUM CHLORIDE 0.9% 250 ML IVPB SCH (17:00)
[2021-03-12] MEDS ORDERED: hydrALAZINE HCL 20 MG/ML 1 ML VIAL IVP STA (17:50)
[2021-03-12] MEDS: traZODone HCL 100 MG TAB PO SCH (20:20)
[2021-03-12] MEDS: risperiDONE 2 MG TAB PO SCH (20:20)
[2021-03-13] MEDS: hydrALAZINE HCL 25 MG TAB PO PRN ×2 (05:40→21:26)
[2021-03-13] MEDS: LEVOTHYROXINE 50 MCG TAB PO SCH (05:40)
[2021-03-13 06:45] LABS: Basophils % (A) 0 %; Eosinophils % (A) 0 %; HCT 39.1 % (34.0-46.0); HGB 13.4 gm/dL (11.4-16.0); Lymphocytes # (A) 0.4 k/uL (1.0-4.8); Lymphocytes % (A) 5 %; MCH 30.7 pg (25.0-35.0); MCHC 34.2 g/dL (31.0-37.0); MCV 89.9 fL (80.0-100.0); Mean Platelet Volume 8.3; Monocytes # (A) 0.4 k/uL (0-1.0); Monocytes % (A) 6 %; Neutrophils % (A) 88 %; RBC 4.35 m/uL (3.80-5.40); RDW 13.8 % (11.5-15.5)
[2021-03-13 07:09] LABS: Platelet Count 194 k/uL (150-450)
[2021-03-13] MEDS: RALOXIFENE 60 MG TAB PO SCH (07:29)
[2021-03-13] MEDS: busPIRone HCl 10 MG TAB PO SCH ×2 (07:30→20:23)
[2021-03-13] MEDS: CALCIUM CARBONATE 500 MG CHEWABLE PO SCH (07:30)
[2021-03-13] MEDS: PANTOPRAZOLE 40 MG TABLET PO SCH (07:30)
[2021-03-13] MEDS: lisinopriL 20 MG TAB PO SCH (07:30)
[2021-03-13] MEDS: SERTRALINE 100 MG TAB PO SCH (07:30)
[2021-03-13] MEDS: ASCORBIC ACID 500 MG TAB PO SCH (07:30)
[2021-03-13] MEDS: methylPREDNISolone SOD SUCCI 40 MG/ML 1 ML VIAL IV SCH ×2 (07:31→16:31)
[2021-03-13] MEDS: amLODIPine 10 MG TAB PO SCH (07:31)
[2021-03-13] MEDS: ENOXAPARIN 40 MG/0.4 ML SYRINGE SQ SCH (07:31)
[2021-03-13] MEDS: ATORVASTATIN 10 MG TAB PO SCH (07:31)
[2021-03-13] MEDS: GABAPENTIN 400 MG CAP PO SCH ×3 (07:31→20:23)
[2021-03-13] MEDS: DOCUSATE 100 MG CAP PO SCH ×2 (07:32→20:24)
[2021-03-13] MEDS: oxyCODONE-APAP 7.5-325MG 1 EACH TAB PO PRN ×2 (08:07→16:32)
[2021-03-13] MEDS: ALBUTEROL HFA INHALER INHALATION SCH ×4 (08:11→22:02)
[2021-03-13] MEDS: SYMBICORT 160-4.5 MCG INHALER INHALATION SCH ×2 (08:11→22:02)
--- NOTE | 2021-03-13 09:37 | P.PN ---
Subjective Progress Note Date: 03/13/21 Feels okay, still on 12 L of oxygen. No chest pain, no abdominal pain. Blood pressure fluctuates. Patient does not appear to be in distress. Objective - Vital Signs Vital signs: Vital Signs Temp 98.6 F 03/13/21 05:43 Pulse 113 H 03/13/21 05:43 Resp 18 03/13/21 05:43 BP 196/118 03/13/21 06:53 Pulse Ox 88 L 03/13/21 05:43 Intake & Output 03/12/21 03/13/21 03/13/21 18:59 06:59 18:59 Intake Total 100 Balance 100 Intake: Oral 100 Other: Voiding Method Bedside Commode Bedside Commode # Voids 3 2 1 # Bowel Movements 1 - Exam Constitutional: No acute distress, conversant, pleasant ENMT: NC/AT Neck:Supple, Lungs: Decreased breath sounds, no wheezing Abdominal: Soft Nontender, nom distended, no guarding, no rebound or rigidity Skin: Normal temperature, tone, texture, turgor Extremities: No clubbing cyanosis or edema Psychiatric: Alert and oriented to person, place and time Neuro: Muscles Strength 5/5 in all 4 extremities Cranial nerves II-XII grossly intact. No focal sensory deficits - Labs CBC & Chem 7: 03/13/21 05:50 03/12/21 05:54 Labs: Abnormal Lab Results - Last 24 Hours (Table) 03/12/21 03/12/21 03/13/21 Range/Units 05:54 05:54 05:50 RBC 3.98 L (4.10-5.20) X 10*6/uL Hgb 11.7 L (12.0-15.0) g/dL Hct 36.9 L (37.2-46.3) % MCHC 31.7 L (32.0-37.0) g/dL Immature Gran # 0.06 H (0.00-0.04) X 10*3/uL Lymphocytes # 0.49 L 0.4 L (0.90-5.00) X 10*3/uL Eosinophils # 0 L (0.04-0.35) X 10*3/uL Chloride 112 H (96-109) mmol/L Carbon Dioxide 16.3 L (21.6-31.8) mmol/L BUN/Creatinine Ratio 28.75 H (12.00-20.00) Ratio Glucose 142 H (70-110) mg/dL AST 59 H (13-35) U/L Alkaline Phosphatase 145 H (41-126) U/L Total Protein 5.8 L (6.2-8.2) g/dL Albumin 3.70 L (3.80-4.90) g/dL Assessment and Plan Plan: COVID pneumonitis with acute hypoxic respiratory failure -Con Decadron, Lovenox, Vit C, Vit D, Melatonin -Monitor inflammatory markers -Continue on oxygen, 12 L. -Pulmonary consult appreciated input. Lactic acidosis -Monitor to resolution Thrombocytopenia -Likely secondary to acute stressor -Monitor , platelets 165 Chronic conditions: COPD, hypertension, hyperlipidemia, hypothyroidism -Continue with home medications Essential hypertension: Continue home medications, increased Norvasc to 10 mg, and added metoprolol 12.5 twice a day monitor DVT prophylaxis -Lovenox CODE STATUS: Full Code Discussed with: patient Anticipated discharge date: 2-[address]: Home versus rehab, pending clinical progression
[2021-03-13] MEDS: METOPROLOL TARTRATE 12.5 MG TAB PO SCH ×2 (09:53→20:23)
--- NOTE | 2021-03-13 17:09 | P.PN ---
Subjective Progress Note Date: 03/13/21 This is a 70-year-old white female patient with past medical history of advanced COPD used to wear oxygen at one point, currently not on any home oxygen, former smoker, hep C treated with Harvoni, osteoarthritis, fibromyalgia, who came to the emergency department on 03/07/2021 for evaluation of cough, dyspnea, fatigue and myalgias, her symptoms have been present for approximately one week. Patient has no contact with coronavirus. In addition she has poor appetite, nausea, vomiting and diarrhea, she has anginal chest tightness without central chest pain. Chest x-ray shows diffuse moderate interstitial opacities in the left mid to lower lung and right lung base, no pleural effusion or pneumothorax. CTA chest shows bilateral opacities. Admission labs showed white blood cell, 4.5, hemoglobin 13, platelet count of 70, lymphocyte count of 0.14, d-dimer is 1.40, sodium is 137, potassium is 4.6, chloride is 103, CO2 is 18, BUN is 20, creatinine is 1.04. Plasma lactic acid is 2.7, ferritin level is 484, total bilirubin is 1.4, AST is 42, ALT is 23, alkaline phosphatase is 180, LDH is 710, CRP is 146.4, pro calcitonin level is 0.11, COVID 19 PCR. She is currently on 4 L of oxygen process between 92-95%, she is afebrile, still dyspneic, but no acute distress. Patient was started on Decadron, vitamins, and we'll start the patient on Remdesivir Patient was reevaluated today on 03/09/2021, patient remains on 6 L high flow nasal cannula, O2 sats is 91%. Patient tells me that she feels short of breath, no cough no wheezing no fever no chills. Her T-max yesterday was 99.6 today temperature is 98.3. Her WBC count is 5.4, basic metabolic profile is normal renal profile is normal LDH on admission was 710 and C-reactive protein was 146. D-dimer 1.40 platelets are 70,000. On 03/10/2001 patient seen in follow-up on medical surgical floor, today is Remdesivir date 3, FiO2 requirement is currently at 12 L, pulse ox is between 92-96%, still congested, coughing, lung sounds reveal diminished breath sounds with some crackles at the bases. No fever. Continues on Decadron 6 mg daily, vitamins, she is on Mucinex, he hasn't had a recent chest x-ray done for a couple of days, her last d-dimer was on 2020 and was at 1.4, no recent LDH a CRP. She states she would like a nebulizer treatment however in view of her quit positive status she cannot have a nebulizer we will order albuterol which she can have 4 times daily scheduled and as needed when necessary every 2 hours. In addition patient is on Symbicort. On 03/11/2021, the patient is being seen in follow-up. The patient continues to have a congested cough. She is feeling slightly better compared to yesterday. Note that she is on Decadron 6 mg by mouth every morning using Mucinex was also added yesterday because of her cough and congestion. She is on 12 L about 2 by nasal cannula. Current pulse ox is 91%. The patient has a CRP of 127 and a LDH level was 848 and the d-dimer is at 1.3. A repeat chest x-ray was done today showed bilateral interstitial infiltrates, increasing compared to yesterday and the patient has mild bilateral interstitial opacities bilaterally. No evidence of any pneumothorax. The patient has fusion hardware in the lumbar spine. She is afebrile. She is hemodynamic is stable. She is known to have underlying COPD and she is not oxygen dependent. She has also history of hepatitis C that was treated along with fibromyalgia and osteoarthritis and fibromyalgia. She has also chronic deformity of the right upper extremity. On 03/12/2021, the patient remains on 12 L approximately nasal cannula. She remains on Decadron IV Solu-Medrol. She is taking Mucinex for cough and congestion. Her pulse ox in the low 90s. She is less wheezy and less bronchospastic yesterday's evaluation. She is completing her course of Remdesivir today. The chest x-ray from yesterday was noted.. No nausea. No vomiting. No abdominal pain. CBC is within normal limits. And symmetrical m arkers are from yesterday. The patient remains on Lovenox.. . Blood pressure is on the higher side and the patient is going to take care of hypertensive medication which includes hydralazine. 03/13/2021 the patient is on 15 L about 2 by nasal cannula. Her pulse ox continues to fluctuate and the patient is having low pulse ox is as low as 85%. She is a nosebleed there. Overall condition is the same as yesterday. She remains on steroids. She completed her Remdesivir protocol and the patient is essentially not fully recovered at this point in time and she is still struggling with her oxygenation. She is laying down about comfortable. No nausea. No vomiting. No diarrhea. No abdominal pain. No chest pain. Her white cell count is at 8 with a hemoglobin of 13.4. She continues to have some lymphopenia. Otherwise, no other new labs. D-dimer LVH and CRP were nonelevated function days ago. Last chest x-ray was from 03/11/2021 and it showed stable bilateral pulmonary infiltrates. Objective - Vital Signs Vital signs: Vital Signs Temp 98.1 F 03/13/21 14:00 Pulse 97 03/13/21 14:00 Resp 20 03/13/21 14:00 BP 169/96 03/13/21 14:00 Pulse Ox 88 L 03/13/21 16:52 Intake & Output 03/12/21 03/13/21 03/13/21 18:59 06:59 18:59 Intake Total 100 Balance 100 Intake: Oral 100 Other: Voiding Method Bedside Commode Bedside Commode Bedside Commode # Voids 3 2 1 # Bowel Movements 1 1 - Exam GENERAL EXAM: Alert, pleasant, 70-year-old white female patient currently on 15 L of oxygen with a pulse ox between 88-90% comfortable in no apparent distress. HEAD: Normocephalic/atraumatic. EYES: Normal reaction of pupils, equal size. Conjunctiva pink, sclera white. NOSE: Clear with pink turbinates. THROAT: No erythema or exudates. NECK: No masses, no JVD, no thyroid enlargement, no adenopathy. CHEST: No chest wall deformity. Symmetrical expansion. LUNGS: Equal air entry with his crackles and rhonchi CVS: Regular rate and rhythm, normal S1 and S2, no gallops, no murmurs, no rubs ABDOMEN: Soft, nontender. No hepatosplenomegaly, normal bowel sounds, no guarding or rigidity. EXTREMITIES: No clubbing, no edema, no cyanosis, 2+ pulses and upper and lower extremities. MUSCULOSKELETAL: Muscle strength and tone normal. Patient has deformity of the right arm, with history of multiple previous surgeries, extensive bone and nerve damage SPINE: No scoliosis or deformity SKIN: No rashes CENTRAL NERVOUS SYSTEM: Alert and oriented -3. No focal deficits, tone is normal in all 4 extremities. PSYCHIATRIC: Alert and oriented -3. Appropriate affect. Intact judgment and insight. - Labs CBC & Chem 7: 03/13/21 05:50 03/12/21 05:54 Labs: Abnormal Lab Results - Last 24 Hours (Table) 03/13/21 Range/Units 05:50 Lymphocytes # 0.4 L (1.0-4.8) k/uL Assessment and Plan Plan: #1. Acute hypoxic respiratory failure related to acute COVID 19 pneumonia, with onset of symptoms within 1 week of presentation, patient will be started on the Remdesivir treatment today on 03/08/2021, and the patient is on day #5 the patient is also on IV Solu-Medrol 40 mg 12 hours. . The patient is currently on 15 L of oxygen by nasal cannula. Condition is stable. No worsening or im provement in her oxygenation. #2. Advanced COPD, used to wear home oxygen in the past, but most recently has not required #3. Osteoarthritis #4. History of hepatitis C, treated with hormone #5. Former smoker #6. History of multiple surgeries involving her right wrist, with extensive joint and nerve damage. Patient was recommended to have right upper arm amputation however she opted against amputation #7. Fibromyalgia #8. Depression #9. Increased d-dimer without CT evidence of pulmonary embolism Plan: Continue IV Solu-Medrol and the dose will be switched to 60 mg IV every 6 hours Wean FiO2 to maintain O2 sat at 89-90% Day #5 of Remdesivir treatment, and the patient completed her treatment which was a 5 day course continue prophylactic anticoagulation with Lovenox 40 mg subcu every 24 hours Symbicort for COPD Ventolin HFA 4 times a day Home medications have been resumed We'll continue to follow with inflammatory markers tomorrow Encouraged use of incentive spirometer The patient is performing prone body positioning We'll continue to follow.
[2021-03-13] MEDS: methylPREDNISolone SOD SUCCI 125 MG/2 ML VIAL IV SCH (17:26)
[2021-03-13] MEDS: traZODone HCL 100 MG TAB PO SCH (20:23)
[2021-03-13] MEDS: risperiDONE 2 MG TAB PO SCH (20:23)
[2021-03-13] MEDS: MELATONIN 5 MG TABLET PO PRN (20:23)
[2021-03-13] MEDS: guaiFENesin 600 MG TABLET.ER PO PRN (21:07)
[2021-03-14] MEDS: methylPREDNISolone SOD SUCCI 125 MG/2 ML VIAL IV SCH ×5 (00:23→23:52)
[2021-03-14] MEDS: LEVOTHYROXINE 50 MCG TAB PO SCH (04:58)
[2021-03-14] MEDS: hydrALAZINE HCL 25 MG TAB PO PRN (04:58)
[2021-03-14] MEDS: oxyCODONE-APAP 7.5-325MG 1 EACH TAB PO PRN (04:58)
[2021-03-14] MEDS: ALBUTEROL HFA INHALER INHALATION SCH ×4 (07:12→21:12)
[2021-03-14] MEDS: METOPROLOL TARTRATE 12.5 MG TAB PO SCH ×2 (08:16→20:48)
[2021-03-14] MEDS: ENOXAPARIN 40 MG/0.4 ML SYRINGE SQ SCH (08:16)
[2021-03-14] MEDS: lisinopriL 20 MG TAB PO SCH (08:17)
[2021-03-14] MEDS: RALOXIFENE 60 MG TAB PO SCH (08:17)
[2021-03-14] MEDS: amLODIPine 10 MG TAB PO SCH (08:17)
[2021-03-14] MEDS: busPIRone HCl 10 MG TAB PO SCH ×2 (08:17→20:48)
[2021-03-14] MEDS: DOCUSATE 100 MG CAP PO SCH ×2 (08:17→20:49)
[2021-03-14] MEDS: SERTRALINE 100 MG TAB PO SCH (08:17)
[2021-03-14] MEDS: CALCIUM CARBONATE 500 MG CHEWABLE PO SCH (08:17)
[2021-03-14] MEDS: PANTOPRAZOLE 40 MG TABLET PO SCH (08:17)
[2021-03-14] MEDS: ATORVASTATIN 10 MG TAB PO SCH (08:17)
[2021-03-14] MEDS: guaiFENesin 600 MG TABLET.ER PO PRN (08:17)
[2021-03-14] MEDS: GABAPENTIN 400 MG CAP PO SCH ×3 (08:17→20:48)
[2021-03-14] MEDS: ASCORBIC ACID 500 MG TAB PO SCH (08:18)
--- NOTE | 2021-03-14 08:27 | XR ---
EXAMINATION TYPE: XR chest 1V DATE OF EXAM: 03/14/2021 CLINICAL HISTORY: Difficulty breathing and covid progress study. TECHNIQUE: Single AP portable upright view of the chest is obtained. COMPARISON: Chest x-ray from 3 days earlier. CTA chest one week earlier. FINDINGS: Long segment Jara rods in the thoracolumbar spine are partially imaged similar to pr ior. Cardiac silhouette size stable and within normal limits. Continued increased reticulonodular inc reased markings bilaterally on background chronic emphysematous and parenchymal fibrotic changes. No pleural effusion or pneumothorax noted. Degenerative change left glenohumeral joint. IMPRESSION: Continued worsening bilateral reticular nodular infiltrates consistent with covid infecti on progression.
[2021-03-14] MEDS: SYMBICORT 160-4.5 MCG INHALER INHALATION SCH ×2 (08:31→21:21)
[2021-03-14 09:32] LABS: Basophils % (A) 0 %; Eosinophils % (A) 0 %; HCT 38.7 % (34.0-46.0); HGB 12.8 gm/dL (11.4-16.0); Lymphocytes # (A) 0.5 k/uL (1.0-4.8); Lymphocytes % (A) 5 %; MCH 30.2 pg (25.0-35.0); MCHC 33.1 g/dL (31.0-37.0); MCV 91.2 fL (80.0-100.0); Mean Platelet Volume 8.8; Monocytes # (A) 0.3 k/uL (0-1.0); Monocytes % (A) 3 %; Neutrophils # (A) 8.4 k/uL (1.3-7.7); Neutrophils % (A) 90 %; Platelet Count 237 k/uL (150-450); RBC 4.24 m/uL (3.80-5.40); RDW 13.7 % (11.5-15.5); WBC 9.3 k/uL (3.8-10.6)
[2021-03-14 09:52] LABS: ALT 32 U/L (4-34); AST 36 U/L (14-36); African American GFR (CKD) >90 (>60 ml/min/1.73 sqM); Albumin 3.5 g/dL (3.5-5.0); Albumin/Globulin Ratio 1.1; Alkaline Phosphatase 141 U/L (38-126); Anion Gap 13 mmol/L; Blood Urea Nitrogen 20 mg/dL (7-17); C Reactive Protein 56.4 mg/L (<10.0); Carbon Dioxide 20 mmol/L (22-30); Chloride 108 mmol/L (98-107); Globulin 3.1 g/dL; Glucose 144 mg/dL (74-99); LDH 1075 U/L (313-618); Non-African American GFR(CKD) 90 (>60 ml/min/1.73 sqM); Potassium 4.2 mmol/L (3.5-5.1); Sodium 141 mmol/L (137-145); Total Bilirubin 0.5 mg/dL (0.2-1.3); Total Protein 6.6 g/dL (6.3-8.2)
--- NOTE | 2021-03-14 13:21 | P.PN ---
Subjective Progress Note Date: 03/14/21 Oxygen requirement increased to 100% . Patient is up in chair, comfortable and does not appear to be in distress. Objective - Vital Signs Vital signs: Vital Signs Temp 97.9 F 03/14/21 10:00 Pulse 100 03/14/21 10:00 Resp 20 03/14/21 10:00 BP 172/93 03/14/21 10:00 Pulse Ox 96 03/14/21 10:00 Intake & Output 03/13/21 03/14/21 03/14/21 18:59 06:59 18:59 Other: Voiding Method Bedside Commode Bedside Commode # Voids 1 1 # Bowel Movements 1 1 - Exam Constitutional: No acute distress, conversant, pleasant, on 100% oxygen ENMT: NC/AT Neck:Supple, Lungs: Decreased breath sounds, no wheezing Abdominal: Soft Nontender, nom distended, no guarding, no rebound or rigidity Skin: Normal temperature, tone, texture, turgor Extremities: No clubbing cyanosis or edema Psychiatric: Alert and oriented to person, place and time Neuro: Muscles Strength 5/5 in all 4 extremities Cranial nerves II-XII grossly intact. - Labs CBC & Chem 7: 03/14/21 07:31 03/14/21 07:31 Labs: Abnormal Lab Results - Last 24 Hours (Table) 03/14/21 03/14/21 03/14/21 Range/Units 07:31 07:31 07:31 Neutrophils # 8.4 H (1.3-7.7) k/uL Lymphocytes # 0.5 L (1.0-4.8) k/uL D-Dimer 1.79 H (<0.60) mg/L FEU Chloride 108 H (98-107) mmol/L Carbon Dioxide 20 L (22-30) mmol/L BUN 20 H (7-17) mg/dL Glucose 144 H (74-99) mg/dL Alkaline Phosphatase 141 H (38-126) U/L Lactate Dehydrogenase 1075 H (313-618) U/L C-Reactive Protein 56.4 H (<10.0) mg/L Assessment and Plan Plan: COVID pneumonitis with acute hypoxic respiratory failure -Con Decadron, Lovenox, Vit C, Vit D, Melatonin -Monitor inflammatory markers -Continue on oxygen up to 100 % -Pulmonary consult appreciated input. Lactic acidosis -Monitor to resolution Thrombocytopenia -Likely secondary to acute stressor -Monitor , platelets 165 Chronic conditions: COPD, hypertension, hyperlipidemia, hypothyroidism -Continue with home medications Essential hypertension: Continue home medications, increased Norvasc to 10 mg, and added metoprolol 12.5 twice a day monitor , BP better DVT prophylaxis -Lovenox CODE STATUS: Full Code Discussed with: patient Anticipated discharge date: 2-[address]: Home versus rehab, pending clinical progression
[2021-03-14] MEDS ORDERED: TOCILIZUMAB 640 MG in SODIUM CHLORIDE 0.9% 68 ML IV ONE (15:00)
[2021-03-14] MEDS ORDERED: TOCILIZUMAB IV ONE (15:00)
[2021-03-14] MEDS ORDERED: SODIUM CHLORIDE 0.9% IV ONE (15:00)
[2021-03-14 15:06] VITALS: BMI 29.1
--- NOTE | 2021-03-14 15:16 | P.PN ---
Subjective Progress Note Date: 03/14/21 This is a 70-year-old white female patient with past medical history of advanced COPD used to wear oxygen at one point, currently not on any home oxygen, former smoker, hep C treated with Harvoni, osteoarthritis, fibromyalgia, who came to the emergency department on 03/07/2021 for evaluation of cough, dyspnea, fatigue and myalgias, her symptoms have been present for approximately one week. Patient has no contact with coronavirus. In addition she has poor appetite, nausea, vomiting and diarrhea, she has anginal chest tightness without central chest pain. Chest x-ray shows diffuse moderate interstitial opacities in the left mid to lower lung and right lung base, no pleural effusion or pneumothorax. CTA chest shows bilateral opacities. Admission labs showed white blood cell, 4.5, hemoglobin 13, platelet count of 70, lymphocyte count of 0.14, d-dimer is 1.40, sodium is 137, potassium is 4.6, chloride is 103, CO2 is 18, BUN is 20, creatinine is 1.04. Plasma lactic acid is 2.7, ferritin level is 484, total bilirubin is 1.4, AST is 42, ALT is 23, alkaline phosphatase is 180, LDH is 710, CRP is 146.4, pro calcitonin level is 0.11, COVID 19 PCR. She is currently on 4 L of oxygen process between 92-95%, she is afebrile, still dyspneic, but no acute distress. Patient was started on Decadron, vitamins, and we'll start the patient on Remdesivir Patient was reevaluated today on 03/09/2021, patient remains on 6 L high flow nasal cannula, O2 sats is 91%. Patient tells me that she feels short of breath, no cough no wheezing no fever no chills. Her T-max yesterday was 99.6 today temperature is 98.3. Her WBC count is 5.4, basic metabolic profile is normal renal profile is normal LDH on admission was 710 and C-reactive protein was 146. D-dimer 1.40 platelets are 70,000. On 03/10/2001 patient seen in follow-up on medical surgical floor, today is Remdesivir date 3, FiO2 requirement is currently at 12 L, pulse ox is between 92-96%, still congested, coughing, lung sounds reveal diminished breath sounds with some crackles at the bases. No fever. Continues on Decadron 6 mg daily, vitamins, she is on Mucinex, he hasn't had a recent chest x-ray done for a couple of days, her last d-dimer was on 2020 and was at 1.4, no recent LDH a CRP. She states she would like a nebulizer treatment however in view of her quit positive status she cannot have a nebulizer we will order albuterol which she can have 4 times daily scheduled and as needed when necessary every 2 hours. In addition patient is on Symbicort. On 03/11/2021, the patient is being seen in follow-up. The patient continues to have a congested cough. She is feeling slightly better compared to yesterday. Note that she is on Decadron 6 mg by mouth every morning using Mucinex was also added yesterday because of her cough and congestion. She is on 12 L about 2 by nasal cannula. Current pulse ox is 91%. The patient has a CRP of 127 and a LDH level was 848 and the d-dimer is at 1.3. A repeat chest x-ray was done today showed bilateral interstitial infiltrates, increasing compared to yesterday and the patient has mild bilateral interstitial opacities bilaterally. No evidence of any pneumothorax. The patient has fusion hardware in the lumbar spine. She is afebrile. She is hemodynamic is stable. She is known to have underlying COPD and she is not oxygen dependent. She has also history of hepatitis C that was treated along with fibromyalgia and osteoarthritis and fibromyalgia. She has also chronic deformity of the right upper extremity. On 03/12/2021, the patient remains on 12 L approximately nasal cannula. She remains on Decadron IV Solu-Medrol. She is taking Mucinex for cough and congestion. Her pulse ox in the low 90s. She is less wheezy and less bronchospastic yesterday's evaluation. She is completing her course of Remdesivir today. The chest x-ray from yesterday was noted.. No nausea. No vomiting. No abdominal pain. CBC is within normal limits. And symmetrical m arkers are from yesterday. The patient remains on Lovenox.. . Blood pressure is on the higher side and the patient is going to take care of hypertensive medication which includes hydralazine. 03/13/2021 the patient is on 15 L about 2 by nasal cannula. Her pulse ox continues to fluctuate and the patient is having low pulse ox is as low as 85%. She is a nosebleed there. Overall condition is the same as yesterday. She remains on steroids. She completed her Remdesivir protocol and the patient is essentially not fully recovered at this point in time and she is still struggling with her oxygenation. She is laying down about comfortable. No nausea. No vomiting. No diarrhea. No abdominal pain. No chest pain. Her white cell count is at 8 with a hemoglobin of 13.4. She continues to have some lymphopenia. Otherwise, no other new labs. D-dimer LVH and CRP were nonelevated function days ago. Last chest x-ray was from 03/11/2021 and it showed stable bilateral pulmonary infiltrates. 03/14/2021, the patient remains on 15 L of oxygen by nasal cannula with a pulse ox of 95%. She is afebrile. She is resting comfortably in bed. Noted this patient has a history of advanced COPD. She is also history of hepatitis C and fibromyalgia. Nevertheless, the patient has never been maintained on oxygen. The patient presented to us few days back and the patient had progressive decl ine in her condition with the patient was requiring high flow of oxygen. She was treated with IV Solu-Medrol. Due to worsening of the chest x-ray findings and worsening his oxygenation was up to 15 L, we ordered tocilizumab V and the patient also was given Lovenox 40 prophylaxis 40 mg subcu on a daily basis. For now the patient is comfortable in bed. Her d-dimer was at 1.79. Her LDH level was up to 1075 and a CRP is a 56. The serum bicarb is up to 20. BUN is at 20 with a creatinine of 0.6. She continues to have some lymphopenia on her blood work. No other significant events otherwise for now. She is awake and she is following commands and answering questions. Tolerating her diet. The BP remains elevated and the patient is currently on Norvasc 10 mg by mouth daily, hydralazine 25 mg on a when necessary basis and Zestril 40 mg by mouth daily and the patient is also taking metoprolol 12.5 mg by mouth twice a day. She is also on a nicotine patch for smoking cessation. Objective - Vital Signs Vital signs: Vital Signs Temp 98.0 F 03/14/21 14:00 Pulse 86 03/14/21 14:00 Resp 2 L 03/14/21 14:00 BP 175/83 03/14/21 14:00 Pulse Ox 95 03/14/21 14:00 Intake & Output 03/13/21 03/14/21 03/14/21 18:59 06:59 18:59 Weight 79.379 kg Other: Voiding Method Bedside Commode Bedside Commode # Voids 1 1 # Bowel Movements 1 1 - Exam GENERAL EXAM: Alert, pleasant, 70-year-old white female patient currently on 15 L of oxygen with a pulse ox between 88-90% comfortable in no apparent distress. HEAD: Normocephalic/atraumatic. EYES: Normal reaction of pupils, equal size. Conjunctiva pink, sclera white. NOSE: Clear with pink turbinates. THROAT: No erythema or exudates. NECK: No masses, no JVD, no thyroid enlargement, no adenopathy. CHEST: No chest wall deformity. Symmetrical expansion. LUNGS: Equal air entry with his crackles and rhonchi CVS: Regular rate and rhythm, normal S1 and S2, no gallops, no murmurs, no rubs ABDOMEN: Soft, nontender. No hepatosplenomegaly, normal bowel sounds, no guarding or rigidity. EXTREMITIES: No clubbing, no edema, no cyanosis, 2+ pulses and upper and lower extremities. MUSCULOSKELETAL: Muscle strength and tone normal. Patient has deformity of the right arm, with history of multiple previous surgeries, extensive bone and nerve damage SPINE: No scoliosis or deformity SKIN: No rashes CENTRAL NERVOUS SYSTEM: Alert and oriented -3. No focal deficits, tone is norm al in all 4 extremities. PSYCHIATRIC: Alert and oriented -3. Appropriate affect. Intact judgment and insight. - Labs CBC & Chem 7: 03/14/21 07:31 03/14/21 07:31 Labs: Abnormal Lab Results - Last 24 Hours (Table) 03/14/21 03/14/21 03/14/21 Range/Units 07:31 07:31 07:31 Neutrophils # 8.4 H (1.3-7.7) k/uL Lymphocytes # 0.5 L (1.0-4.8) k/uL D-Dimer 1.79 H (<0.60) mg/L FEU Chloride 108 H (98-107) mmol/L Carbon Dioxide 20 L (22-30) mmol/L BUN 20 H (7-17) mg/dL Glucose 144 H (74-99) mg/dL Alkaline Phosphatase 141 H (38-126) U/L Lactate Dehydrogenase 1075 H (313-618) U/L C-Reactive Protein 56.4 H (<10.0) mg/L Assessment and Plan Plan: #1. Acute hypoxic respiratory failure related to acute COVID 19 pneumonia, with onset of symptoms within 1 week of presentation, patient completed Remdesivir treatment and the patient is also on IV Solu-Medrol 40 mg 12 hours. Based on worsening in her oxygenation and lack of reasonable recovery this patient, we have ordered also Tocilizumab 640 mg IV 1. Currently is on 15 L about 2 by nasal cannula. And symmetrical markers continued to be quite elevated. The chest x-ray showing worsening of the bilateral reticular nodular infiltrates consistent with COVID-19 related pneumonia. #2. Advanced COPD, used to wear home oxygen in the past, but most recently has not required #3. Osteoarthritis #4. History of hepatitis C, treated with hormone #5. Former smoker #6. History of multiple surgeries involving her right wrist, with extensive joint and nerve damage. Patient was recommended to have right upper arm amputation however she opted against amputation #7. Fibromyalgia #8. Depression #9. Increased d-dimer without CT evidence of pulmonary embolism Plan: Continue IV Solu-Medrol and the dose will be switched to 60 mg IV every 6 hours Wean FiO2 to maintain O2 sat at 89-90% Completed Remdesivir treatment, and the patient completed her treatment which was a 5 day course continue prophylactic anticoagulation with Lovenox 40 mg subcu every 24 hours Based on worsening of the chest x-ray findings and the worsening oxygenation, we are going to order Tocilizumab 640 mg IV 1. Symbicort for COPD Ventolin HFA 4 times a day Home medications have been resumed We'll continue to follow with inflammatory markers tomorrow Encouraged use of incentive spirometer The patient is performing prone body positioning We'll continue to follow.
[2021-03-14] MEDS: tiZANidine 4 MG TAB PO PRN (15:32)
[2021-03-14] MEDS: traZODone HCL 100 MG TAB PO SCH (20:48)
[2021-03-14] MEDS: risperiDONE 2 MG TAB PO SCH (20:48)
[2021-03-15] MEDS: hydrALAZINE HCL 25 MG TAB PO PRN (03:17)
[2021-03-15] MEDS: methylPREDNISolone SOD SUCCI 125 MG/2 ML VIAL IV SCH (05:46)
[2021-03-15] MEDS: LEVOTHYROXINE 50 MCG TAB PO SCH (05:46)
[2021-03-15] MEDS: ENOXAPARIN 40 MG/0.4 ML SYRINGE SQ SCH (07:35)
[2021-03-15] MEDS: ASCORBIC ACID 500 MG TAB PO SCH (07:35)
[2021-03-15] MEDS: amLODIPine 10 MG TAB PO SCH (07:35)
[2021-03-15] MEDS: ATORVASTATIN 10 MG TAB PO SCH (07:35)
[2021-03-15] MEDS: busPIRone HCl 10 MG TAB PO SCH ×2 (07:36→20:31)
[2021-03-15] MEDS: PANTOPRAZOLE 40 MG TABLET PO SCH (07:36)
[2021-03-15] MEDS: SERTRALINE 100 MG TAB PO SCH (07:36)
[2021-03-15] MEDS: GABAPENTIN 400 MG CAP PO SCH ×3 (07:36→20:31)
[2021-03-15] MEDS: CALCIUM CARBONATE 500 MG CHEWABLE PO SCH (07:36)
[2021-03-15] MEDS: DOCUSATE 100 MG CAP PO SCH ×2 (07:36→20:30)
[2021-03-15] MEDS: lisinopriL 20 MG TAB PO SCH (07:36)
[2021-03-15] MEDS: RALOXIFENE 60 MG TAB PO SCH (07:36)
[2021-03-15] MEDS: METOPROLOL TARTRATE 12.5 MG TAB PO SCH ×2 (07:36→19:34)
[2021-03-15] MEDS: ALBUTEROL HFA INHALER INHALATION SCH ×4 (08:23→21:06)
[2021-03-15] MEDS: SYMBICORT 160-4.5 MCG INHALER INHALATION SCH ×2 (08:24→21:06)
--- NOTE | 2021-03-15 09:17 | P.PN ---
Subjective Progress Note Date: 03/15/21 She is still on 15 L of oxygen. Awake alert oriented 3. Not in distress. Talking. Objective - Vital Signs Vital signs: Vital Signs Temp 97.6 F 03/15/21 06:00 Pulse 84 03/15/21 06:00 Resp 20 03/15/21 07:36 BP 178/82 03/15/21 06:00 Pulse Ox 93 L 03/15/21 06:00 Intake & Output 03/14/21 03/15/21 03/15/21 18:59 06:59 18:59 Intake Total 400 Balance 400 Weight 79.379 kg Intake: Oral 400 Other: Voiding Method Bedside Commode Bedside Commode Bedside Commode # Voids 2 1 # Bowel Movements 1 - Exam Constitutional: No acute distress, conversant, pleasant, on 100% oxygen ENMT: NC/AT Neck:Supple, Lungs: Decreased breath sounds, no wheezing Abdominal: Soft Nontender, nom distended, positive bowel sounds Skin: Normal temperature, tone, texture, turgor Extremities: No clubbing cyanosis or edema Psychiatric: Alert and oriented to person, place and time Neuro: Muscles Strength 5/5 in all 4 extremities Cranial nerves II-XII grossly intact. - Labs CBC & Chem 7: 03/14/21 07:31 03/14/21 07:31 Labs: Abnormal Lab Results - Last 24 Hours (Table) 03/14/21 03/14/21 03/14/21 Range/Units 07:31 07:31 07:31 Neutrophils # 8.4 H (1.3-7.7) k/uL Lymphocytes # 0.5 L (1.0-4.8) k/uL D-Dimer 1.79 H (<0.60) mg/L FEU Chloride 108 H (98-107) mmol/L Carbon Dioxide 20 L (22-30) mmol/L BUN 20 H (7-17) mg/dL Glucose 144 H (74-99) mg/dL Alkaline Phosphatase 141 H (38-126) U/L Lactate Dehydrogenase 1075 H (313-618) U/L C-Reactive Protein 56.4 H (<10.0) mg/L Assessment and Plan Plan: COVID pneumonitis with acute hypoxic respiratory failure -Con Decadron, Lovenox, Vit C, Vit D, Melatonin -Monitor inflammatory markers -Continue on oxygen up to 15 L high flow/nonrebreather. -Pulmonary consult appreciated input. Lactic acidosis -Monitor to resolution Thrombocytopenia -Likely secondary to acute stressor -Monitor , platelets 165 , pending today. Chronic conditions: COPD, hypertension, hyperlipidemia, hypothyroidism -Continue with home medications Essential hypertension: Continue home medications, increased Norvasc to 10 mg, and added metoprolol 12.5 twice a day monitor , increase metoprolol to 25 twice a day DVT prophylaxis -Lovenox CODE STATUS: Full Code Discussed with: patient Anticipated discharge date: 2-[address]: Home versus rehab, pending clinical progression
[2021-03-15] MEDS: METOPROLOL TARTRATE 25 MG TAB PO SCH ×2 (10:08→20:31)
[2021-03-15] MEDS: tiZANidine 4 MG TAB PO PRN (10:08)
[2021-03-15 10:58] LABS: ALT 28 U/L (4-34); AST 35 U/L (14-36); African American GFR (CKD) >90 (>60 ml/min/1.73 sqM); Albumin 3.4 g/dL (3.5-5.0); Alkaline Phosphatase 139 U/L (38-126); Anion Gap 11 mmol/L; Blood Urea Nitrogen 25 mg/dL (7-17); Calcium 8.8 mg/dL (8.4-10.2); Carbon Dioxide 23 mmol/L (22-30); Chloride 107 mmol/L (98-107); Globulin 3.3 g/dL; Glucose 103 mg/dL (74-99); Non-African American GFR(CKD) 88 (>60 ml/min/1.73 sqM); Potassium 4.3 mmol/L (3.5-5.1); Sodium 141 mmol/L (137-145); Total Bilirubin 0.5 mg/dL (0.2-1.3); Total Protein 6.7 g/dL (6.3-8.2)
[2021-03-15 12:19] LABS: Basophils % (A) 0 %; Eosinophils % (A) 1 %; HCT 36.6 % (34.0-46.0); HGB 12.1 gm/dL (11.4-16.0); Lymphocytes # (A) 0.3 k/uL (1.0-4.8); Lymphocytes % (A) 4 %; MCHC 33.1 g/dL (31.0-37.0); MCV 90.7 fL (80.0-100.0); Mean Platelet Volume 8.2; Monocytes # (A) 0.3 k/uL (0-1.0); Monocytes % (A) 4 %; Neutrophils # (A) 7.3 k/uL (1.3-7.7); Neutrophils % (A) 90 %; Platelet Count 196 k/uL (150-450); RBC 4.04 m/uL (3.80-5.40); RDW 13.6 % (11.5-15.5); WBC 8.1 k/uL (3.8-10.6)
--- NOTE | 2021-03-15 15:19 | P.PN ---
Subjective Progress Note Date: 03/15/21 Principal diagnosis: Acute hypoxic respiratory failure secondary to acute Covid 19 pneumonia This is a 70-year-old white female patient with past medical history of advanced COPD used to wear oxygen at one point, currently not on any home oxygen, former smoker, hep C treated with Harvoni, osteoarthritis, fibromyalgia, who came to the emergency department on 03/07/2021 for evaluation of cough, dyspnea, fatigue and myalgias, her symptoms have been present for approximately one week. Patient has no contact with coronavirus. In addition she has poor appetite, nausea, vomiting and diarrhea, she has anginal chest tightness without central chest pain. Chest x-ray shows diffuse moderate interstitial opacities in the left mid to lower lung and right lung base, no pleural effusion or pneumothorax. CTA chest shows bilateral opacities. Admission labs showed white blood cell, 4.5, hemoglobin 13, platelet count of 70, lymphocyte count of 0.14, d-dimer is 1.40, sodium is 137, potassium is 4.6, chloride is 103, CO2 is 18, BUN is 20, creatinine is 1.04. Plasma lactic acid is 2.7, ferritin level is 484, total bilirubin is 1.4, AST is 42, ALT is 23, alkaline phosphatase is 180, LDH is 710, CRP is 146.4, pro calcitonin level is 0.11, COVID 19 PCR. She is currently on 4 L of oxygen process between 92-95%, she is afebrile, still dyspneic, but no acute distress. Patient was started on Decadron, vitamins, and we'll start the patient on Remdesivir Patient was reevaluated today on 03/09/2021, patient remains on 6 L high flow nasal cannula, O2 sats is 91%. Patient tells me that she feels short of breath, no cough no wheezing no fever no chills. Her T-max yesterday was 99.6 today temperature is 98.3. Her WBC count is 5.4, basic metabolic profile is normal renal profile is normal LDH on admission was 710 and C-reactive protein was 146. D-dimer 1.40 platelets are 70,000. On 03/10/2001 patient seen in follow-up on medical surgical floor, today is Remdesivir date 3, FiO2 requirement is currently at 12 L, pulse ox is between 92-96%, still congested, coughing, lung sounds reveal diminished breath sounds with some crackles at the bases. No fever. Continues on Decadron 6 mg daily, vitamins, she is on Mucinex, he hasn't had a recent chest x-ray done for a coupl e of days, her last d-dimer was on 2020 and was at 1.4, no recent LDH a CRP. She states she would like a nebulizer treatment however in view of her quit positive status she cannot have a nebulizer we will order albuterol which she can have 4 times daily scheduled and as needed when necessary every 2 hours. In addition patient is on Symbicort. On 03/15/2021 patient seen in follow-up on medical surgical floor, she continues to require high flow oxygen per 15 L high flow and are present a nonrebreather mask, she states her dyspnea is not worsened. Still coughing, and at times she is able to bring up some phlegm, her pulse ox is 91-92%, for chest pain, she is able to bring up some phlegm at times, no new chest x-ray today, yesterday she received 640 mg Tocilizumab in view of worsening hypoxia, she also remains on IV Solu-Medrol. D-dimer was 1.79 yesterday's labs, d-dimer and LDH a CRP will be ordered for tomorrow. No complaints chest pain, no hemoptysis, no fever. Objective - Vital Signs Vital signs: Vital Signs Temp 97.9 F 03/15/21 13:58 Pulse 76 03/15/21 13:58 Resp 22 03/15/21 13:58 BP 143/80 03/15/21 13:58 Pulse Ox 91 L 03/15/21 13:58 Intake & Output 03/14/21 03/15/21 03/15/21 18:59 06:59 18:59 Intake Total 400 Balance 400 Weight 79.379 kg Intake: Oral 400 Other: Voiding Method Bedside Commode Bedside Commode Bedside Commode # Voids 2 1 2 # Bowel Movements 1 1 - Exam GENERAL EXAM: Alert, pleasant, 70-year-old white female patient currently on 15 L of oxygen and heart percent nonrebreather mask with a pulse ox between 91% comfortable in no apparent distress. HEAD: Normocephalic/atraumatic. EYES: Normal reaction of pupils, equal size. Conjunctiva pink, sclera white. NOSE: Clear with pink turbinates. THROAT: No erythema or exudates. NECK: No masses, no JVD, no thyroid enlargement, no adenopathy. CHEST: No chest wall deformity. Symmetrical expansion. LUNGS: Equal air entry with his crackles and rhonchi CVS: Regular rate and rhythm, normal S1 and S2, no gallops, no murmurs, no rubs ABDOMEN: Soft, nontender. No hepatosplenomegaly, normal bowel sounds, no guarding or rigidity. EXTREMITIES: No clubbing, no edema, no cyanosis, 2+ pulses and upper and lower extremities. MUSCULOSKELETAL: Muscle strength and tone normal. Patient has deformity of the right arm, with history of multiple previous surgeries, extensive bone and nerve damage SPINE: No scoliosis or deformity SKIN: No rashes CENTRAL NERVOUS SYSTEM: Alert and oriented -3. No focal deficits, tone is normal in all 4 extremities. PSYCHIATRIC: Alert and oriented -3. Appropriate affect. Intact judgment and insight. - Labs CBC & Chem 7: 03/15/21 11:49 03/15/21 06:21 Labs: Abnormal Lab Results - Last 24 Hours (Table) 03/15/21 03/15/21 Range/Units 06:21 11:49 Lymphocytes # 0.3 L (1.0-4.8) k/uL BUN 25 H (7-17) mg/dL Glucose 103 H (74-99) mg/dL Alkaline Phosphatase 139 H (38-126) U/L Albumin 3.4 L (3.5-5.0) g/dL Assessment and Plan Plan: Assessment: #1. Acute hypoxic respiratory failure related to acute COVID 19 pneumonia, with onset of symptoms within 1 week of presentation, patient was started on Remdesivir on 03/08/2021 however her hypoxia had progressed and we stopped of Remdesivir and gave Toci on 03/14/2021 #2. Advanced COPD, used to wear home oxygen in the past, but most recently has not required it, #3. Osteoarthritis #4. History of hepatitis C, treated with hormone #5. Former smoker #6. History of multiple surgeries involving her right wrist, with extensive joint and nerve damage. Patient was recommended to have right upper arm amputation however she opted against amputation #7. Fibromyalgia #8. Depression #9. Increased d-dimer without CT evidence of pulmonary embolism Plan: Continue Solu-Medrol at 40 mg every 8 hours, patient is status post Toci, Symbicort high flow oxygen, currently on her percent nonrebreather and 50 L per high flow oxygen, continue current dose prophylactic Lovenox, will obtain inflammatory markers, d-dimer and chest x-ray tomorrow, CODE STATUS was discussed with the patient, and she stated that in case of clinical deterioration and worsening in her respiratory status or cardiac arrest that she does not want any heroic measures, no resuscitation, no placement on mechanical ventilator. She stated that she had discussed this with her kids in they do know about her wishes. CODE STATUS will be changed to DO NOT RESUSCITATE per patient's wishes, her daughter be contacted so they can bring in the copy of her advanced directive. I performed a history & physical examination of the patient and discussed their management with my nurse practitioner, Lucia Kinsey. I reviewed the nurse practitioner's note and agree with the documented findings and plan of care. Lung sounds are positive for diminished breath sounds with bilateral crackles. The findings and the impression was discussed with the patient. I attest to the documentation by the nurse practitioner. Time with Patient: Less than 30
[2021-03-15] MEDS: methylPREDNISolone SOD SUCCI 40 MG/ML 1 ML VIAL IV SCH ×2 (15:44→23:51)
[2021-03-15] MEDS: traZODone HCL 100 MG TAB PO SCH (20:30)
[2021-03-15] MEDS: risperiDONE 2 MG TAB PO SCH (20:30)
[2021-03-15] MEDS: MELATONIN 5 MG TABLET PO PRN (20:34)
[2021-03-15] MEDS: oxyCODONE-APAP 7.5-325MG 1 EACH TAB PO PRN (20:34)
[2021-03-16] MEDS: hydrALAZINE HCL 25 MG TAB PO PRN ×2 (03:49→18:52)
[2021-03-16] MEDS: LEVOTHYROXINE 50 MCG TAB PO SCH (06:12)
[2021-03-16] MEDS: methylPREDNISolone SOD SUCCI 40 MG/ML 1 ML VIAL IV SCH ×3 (08:16→23:05)
[2021-03-16] MEDS: ENOXAPARIN 40 MG/0.4 ML SYRINGE SQ SCH (08:17)
[2021-03-16] MEDS: ATORVASTATIN 10 MG TAB PO SCH (08:17)
[2021-03-16] MEDS: DOCUSATE 100 MG CAP PO SCH ×2 (08:17→23:00)
[2021-03-16] MEDS: GABAPENTIN 400 MG CAP PO SCH ×3 (08:17→23:00)
[2021-03-16] MEDS: busPIRone HCl 10 MG TAB PO SCH ×2 (08:17→23:01)
[2021-03-16] MEDS: SERTRALINE 100 MG TAB PO SCH (08:17)
[2021-03-16] MEDS: amLODIPine 10 MG TAB PO SCH (08:17)
[2021-03-16] MEDS: lisinopriL 20 MG TAB PO SCH (08:17)
[2021-03-16] MEDS: PANTOPRAZOLE 40 MG TABLET PO SCH (08:17)
[2021-03-16] MEDS: ASCORBIC ACID 500 MG TAB PO SCH (08:17)
[2021-03-16] MEDS: CALCIUM CARBONATE 500 MG CHEWABLE PO SCH (08:17)
[2021-03-16] MEDS: METOPROLOL TARTRATE 25 MG TAB PO SCH ×2 (08:17→23:01)
[2021-03-16] MEDS: METOPROLOL TARTRATE 12.5 MG TAB PO SCH (08:18)
[2021-03-16] MEDS: RALOXIFENE 60 MG TAB PO SCH (08:18)
[2021-03-16] MEDS: oxyCODONE-APAP 7.5-325MG 1 EACH TAB PO PRN (08:27)
[2021-03-16 08:44] LABS: Basophils % (A) 0 %; Eosinophils # (A) 0.1 k/uL (0-0.7); Eosinophils % (A) 1 %; HCT 44.5 % (34.0-46.0); HGB 14.7 gm/dL (11.4-16.0); Lymphocytes # (A) 0.3 k/uL (1.0-4.8); Lymphocytes % (A) 4 %; MCH 30.1 pg (25.0-35.0); MCHC 32.9 g/dL (31.0-37.0); MCV 91.4 fL (80.0-100.0); Mean Platelet Volume 8.9; Monocytes # (A) 0.4 k/uL (0-1.0); Monocytes % (A) 5 %; Neutrophils # (A) 7.6 k/uL (1.3-7.7); Neutrophils % (A) 90 %; Platelet Count 230 k/uL (150-450); RBC 4.88 m/uL (3.80-5.40); RDW 13.6 % (11.5-15.5); WBC 8.5 k/uL (3.8-10.6)
[2021-03-16 08:57] LABS: ALT 32 U/L (4-34); African American GFR (CKD) >90 (>60 ml/min/1.73 sqM); Albumin 3.8 g/dL (3.5-5.0); Albumin/Globulin Ratio 1.1; Anion Gap 11 mmol/L; Blood Urea Nitrogen 25 mg/dL (7-17); Carbon Dioxide 21 mmol/L (22-30); Chloride 107 mmol/L (98-107); Globulin 3.5 g/dL; Glucose 116 mg/dL (74-99); Non-African American GFR(CKD) >90 (>60 ml/min/1.73 sqM); Sodium 139 mmol/L (137-145); Total Bilirubin 0.7 mg/dL (0.2-1.3); Total Protein 7.3 g/dL (6.3-8.2)
[2021-03-16 08:58] LABS: AST 43 U/L (14-36); Alkaline Phosphatase 143 U/L (38-126); Potassium 4.5 mmol/L (3.5-5.1)
[2021-03-16] MEDS: ALBUTEROL HFA INHALER INHALATION SCH ×4 (09:10→21:41)
--- NOTE | 2021-03-16 09:39 | P.PN ---
Subjective Progress Note Date: 03/16/21 She is still on 15 L of oxygen. Awake alert oriented 3. Talking no dizziness Objective - Vital Signs Vital signs: Vital Signs Temp 97.4 F L 03/16/21 06:00 Pulse 92 03/16/21 06:00 Resp 21 03/16/21 06:00 BP 170/92 03/16/21 06:00 Pulse Ox 89 L 03/16/21 06:00 Intake & Output 03/15/21 03/16/21 03/16/21 18:59 06:59 18:59 Intake Total 400 350 300 Balance 400 350 300 Intake: Oral 400 350 300 Other: Voiding Method Bedside Commode Bedside Commode # Voids 2 1 # Bowel Movements 1 1 - Exam Constitutional: No acute distress, conversant, pleasant, on 100% oxygen ENMT: NC/AT Neck:Supple, Lungs: Decreased breath sounds, no wheezing Abdominal: Soft Nontender, non distended Extremities: No clubbing cyanosis or edema Psychiatric: Alert and oriented to person, place and time Neuro: Muscles Strength 5/5 in all 4 extremities Cranial nerves II-XII grossly intact. - Labs CBC & Chem 7: 03/16/21 06:52 03/16/21 06:52 Labs: Abnormal Lab Results - Last 24 Hours (Table) 03/15/21 03/15/21 03/16/21 Range/Units 06:21 11:49 06:52 Lymphocytes # 0.3 L 0.3 L (1.0-4.8) k/uL Carbon Dioxide (22-30) mmol/L BUN 25 H (7-17) mg/dL Glucose 103 H (74-99) mg/dL AST (14-36) U/L Alkaline Phosphatase 139 H (38-126) U/L Albumin 3.4 L (3.5-5.0) g/dL 03/16/21 Range/Units 06:52 Lymphocytes # (1.0-4.8) k/uL Carbon Dioxide 21 L (22-30) mmol/L BUN 25 H (7-17) mg/dL Glucose 116 H (74-99) mg/dL AST 43 H (14-36) U/L Alkaline Phosphatase 143 H (38-126) U/L Albumin (3.5-5.0) g/dL Assessment and Plan Plan: COVID pneumonitis with acute hypoxic respiratory failure -Continue Decadron, Vit C, Vit D, Melatonin, on Eliquis -Continue on oxygen up to 15 L high flow/nonrebreather. -Pulmonary consult appreciated input. Lactic acidosis -Monitor to resolution Thrombocytopenia -Likely secondary to acute stressor -Resolved Chronic conditions: COPD, hypertension, hyperlipidemia, hypothyroidism -Continue with home medications Essential hypertension: Continue home medications, increased Norvasc to 10 mg, and metoprolol to 25 twice a day DVT prophylaxis -Lovenox Leukocytosis: wbc 14,000 CODE STATUS: Full Code Discussed with: patient Anticipated discharge date: 2-[address]: Home versus rehab, pending clinical progression
[2021-03-16] MEDS: SYMBICORT 160-4.5 MCG INHALER INHALATION SCH ×2 (09:56→21:41)
--- NOTE | 2021-03-16 14:13 | P.PN ---
Subjective Progress Note Date: 03/16/21 This is a 70-year-old white female patient with past medical history of advanced COPD used to wear oxygen at one point, currently not on any home oxygen, former smoker, hep C treated with Harvoni, osteoarthritis, fibromyalgia, who came to the emergency department on 03/07/2021 for evaluation of cough, dyspnea, fatigue and myalgias, her symptoms have been present for approximately one week. Patient has no contact with coronavirus. In addition she has poor appetite, nausea, vomiting and diarrhea, she has anginal chest tightness without central chest pain. Chest x-ray shows diffuse moderate interstitial opacities in the left mid to lower lung and right lung base, no pleural effusion or pneumothorax. CTA chest shows bilateral opacities. Admission labs showed white blood cell, 4.5, hemoglobin 13, platelet count of 70, lymphocyte count of 0.14, d-dimer is 1.40, sodium is 137, potassium is 4.6, chloride is 103, CO2 is 18, BUN is 20, creatinine is 1.04. Plasma lactic acid is 2.7, ferritin level is 484, total bilirubin is 1.4, AST is 42, ALT is 23, alkaline phosphatase is 180, LDH is 710, CRP is 146.4, pro calcitonin level is 0.11, COVID 19 PCR. She is currently on 4 L of oxygen process between 92-95%, she is afebrile, still dyspneic, but no acute distress. Patient was started on Decadron, vitamins, and we'll start the patient on Remdesivir Patient was reevaluated today on 03/09/2021, patient remains on 6 L high flow nasal cannula, O2 sats is 91%. Patient tells me that she feels short of breath, no cough no wheezing no fever no chills. Her T-max yesterday was 99.6 today temperature is 98.3. Her WBC count is 5.4, basic metabolic profile is normal renal profile is normal LDH on admission was 710 and C-reactive protein was 146. D-dimer 1.40 platelets are 70,000. On 03/10/2001 patient seen in follow-up on medical surgical floor, today is Remdesivir date 3, FiO2 requirement is currently at 12 L, pulse ox is between 92-96%, still congested, coughing, lung sounds reveal diminished breath sounds with some crackles at the bases. No fever. Continues on Decadron 6 mg daily, vitamins, she is on Mucinex, he hasn't had a recent chest x-ray done for a couple of days, her last d-dimer was on 2020 and was at 1.4, no recent LDH a CRP. She states she would like a nebulizer treatment however in view of her quit positive status she cannot have a nebulizer we will order albuterol which she can have 4 times daily scheduled and as needed when necessary every 2 hours. In addition patient is on Symbicort. On 03/11/2021, the patient is being seen in follow-up. The patient continues to have a congested cough. She is feeling slightly better compared to yesterday. Note that she is on Decadron 6 mg by mouth every morning using Mucinex was also added yesterday because of her cough and congestion. She is on 12 L about 2 by nasal cannula. Current pulse ox is 91%. The patient has a CRP of 127 and a LDH level was 848 and the d-dimer is at 1.3. A repeat chest x-ray was done today showed bilateral interstitial infiltrates, increasing compared to yesterday and the patient has mild bilateral interstitial opacities bilaterally. No evidence of any pneumothorax. The patient has fusion hardware in the lumbar spine. She is afebrile. She is hemodynamic is stable. She is known to have underlying COPD and she is not oxygen dependent. She has also history of hepatitis C that was treated along with fibromyalgia and osteoarthritis and fibromyalgia. She has also chronic deformity of the right upper extremity. On 03/12/2021, the patient remains on 12 L approximately nasal cannula. She remains on Decadron IV Solu-Medrol. She is taking Mucinex for cough and congestion. Her pulse ox in the low 90s. She is less wheezy and less bronchospastic yesterday's evaluation. She is completing her course of Remdesivir today. The chest x-ray from yesterday was noted.. No nausea. No vomiting. No abdominal pain. CBC is within normal limits. And symmetrical m arkers are from yesterday. The patient remains on Lovenox.. . Blood pressure is on the higher side and the patient is going to take care of hypertensive medication which includes hydralazine. 03/13/2021 the patient is on 15 L about 2 by nasal cannula. Her pulse ox continues to fluctuate and the patient is having low pulse ox is as low as 85%. She is a nosebleed there. Overall condition is the same as yesterday. She remains on steroids. She completed her Remdesivir protocol and the patient is essentially not fully recovered at this point in time and she is still struggling with her oxygenation. She is laying down about comfortable. No nausea. No vomiting. No diarrhea. No abdominal pain. No chest pain. Her white cell count is at 8 with a hemoglobin of 13.4. She continues to have some lymphopenia. Otherwise, no other new labs. D-dimer LVH and CRP were nonelevated function days ago. Last chest x-ray was from 03/11/2021 and it showed stable bilateral pulmonary infiltrates. 03/14/2021, the patient remains on 15 L of oxygen by nasal cannula with a pulse ox of 95%. She is afebrile. She is resting comfortably in bed. Noted this patient has a history of advanced COPD. She is also history of hepatitis C and fibromyalgia. Nevertheless, the patient has never been maintained on oxygen. The patient presented to us few days back and the patient had progressive decl ine in her condition with the patient was requiring high flow of oxygen. She was treated with IV Solu-Medrol. Due to worsening of the chest x-ray findings and worsening his oxygenation was up to 15 L, we ordered tocilizumab V and the patient also was given Lovenox 40 prophylaxis 40 mg subcu on a daily basis. For now the patient is comfortable in bed. Her d-dimer was at 1.79. Her LDH level was up to 1075 and a CRP is a 56. The serum bicarb is up to 20. BUN is at 20 with a creatinine of 0.6. She continues to have some lymphopenia on her blood work. No other significant events otherwise for now. She is awake and she is following commands and answering questions. Tolerating her diet. The BP remains elevated and the patient is currently on Norvasc 10 mg by mouth daily, hydralazine 25 mg on a when necessary basis and Zestril 40 mg by mouth daily and the patient is also taking metoprolol 12.5 mg by mouth twice a day. She is also on a nicotine patch for smoking cessation. On 03/15/2021 patient seen in follow-up on medical floor, she states she is coughing frequently, but appears to be in no acute distress, she remains at 2 L of oxygen pulse ox is 96%, she was started on Remdesivir, and today is day 3 of treatment. No nausea vomiting diarrhea, she is tolerating oral intake, today's labs have been reviewed, her lymphocyte count is still low at 0.6, the rest of the CBC was within normal limits, d-dimer is 2.42, electrolytes and renal profile were unremarkable. CRP is down to 1.5, and LDH is 442. On 03/16/2021, I'm seeing the patient for a follow-up. Despite have high oxygen requirements, the patient continues to feel fine and she reports that she is feeling slightly better compared to yesterday. The patient currently is on 15 L of oxygen by nasal cannula in addition to 100% nonrebreather facemask. The patient is resting comfortably in bed. Pulse ox is ranging between 87-88%. She is afebrile. She is able to speak full sentences. Her breathing is nonlabored. She doesn't look to be toxic at all. The patient has a normal renal function. Normal electrolytes. D-dimer from few days back was 1.79. LDH from few days back was 1075 with a CRP of 56. The patient is currently on IV Solu Medrol 40 mg every 8 hours. She is also on Lovenox 40 mg subcu every 24 hours. Rest of the medications are all unchanged. Objective - Vital Signs Vital signs: Vital Signs Temp 97.6 F 03/16/21 10:00 Pulse 88 03/16/21 10:00 Resp 22 03/16/21 10:00 BP 169/91 03/16/21 10:00 Pulse Ox 86 L 03/16/21 10:00 Intake & Output 03/15/21 03/16/21 03/16/21 18:59 06:59 18:59 Intake Total 400 350 600 Balance 400 350 600 Intake: Oral 400 350 600 Other: Voiding Method Bedside Commode Bedside Commode # Voids 2 1 # Bowel Movements 1 1 - Exam GENERAL EXAM: Alert, pleasant, 70-year-old white female patient currently on 15 L of oxygen in addition to 100% on nonrebreather facemask with a pulse ox between 88-90% comfortable in no apparent distress. HEAD: Normocephalic/atraumatic. EYES: Normal reaction of pupils, equal size. Conjunctiva pink, sclera white. NOSE: Clear with pink turbinates. THROAT: No erythema or exudates. NECK: No masses, no JVD, no thyroid enlargement, no adenopathy. CHEST: No chest wall deformity. Symmetrical expansion. LUNGS: Equal air entry with his crackles and rhonchi CVS: Regular rate and rhythm, normal S1 and S2, no gallops, no murmurs, no rubs ABDOMEN: Soft, nontender. No hepatosplenomegaly, normal bowel sounds, no guarding or rigidity. EXTREMITIES: No clubbing, no edema, no cyanosis, 2+ pulses and upper and lower extremities. MUSCULOSKELETAL: Muscle strength and tone normal. Patient has deformity of the right arm, with history of multiple previous surgeries, extensive bone and nerve damage SPINE: No scoliosis or deformity SKIN: No rashes CENTRAL NERVOUS SYSTEM: Alert and oriented -3. No focal deficits, tone is normal in all 4 extremities. PSYCHIATRIC: Alert and oriented -3. Appropriate affect. Intact judgment and insight. - Labs CBC & Chem 7: 03/16/21 06:52 03/16/21 06:52 Labs: Abnormal Lab Results - Last 24 Hours (Table) 03/16/21 03/16/21 Range/Units 06:52 06:52 Lymphocytes # 0.3 L (1.0-4.8) k/uL Carbon Dioxide 21 L (22-30) mmol/L BUN 25 H (7-17) mg/dL Glucose 116 H (74-99) mg/dL AST 43 H (14-36) U/L Alkaline Phosphatase 143 H (38-126) U/L Assessment and Plan Plan: #1. Acute hypoxic respiratory failure related to acute COVID 19 pneumonia, with onset of symptoms within 1 week of presentation, patient completed Remdesivir treatment and the patient is also on IV Solu-Medrol 40 mg 12 hours. Based on worsening in her oxygenation and lack of reasonable recovery this patient, we have ordered also Tocilizumab 640 mg IV 1. Currently is on 15 L nasal cannula in combination with 100% nonrebreather facemask. The patient is stable despite her increased oxygen needs. She'll be kept on the percent on a beta facemasks in addition to 15 L. We'll try to wean off the FiO2 once her pulse ox improves. I'm going to order a follow-up chest x-ray for tomorrow. The lips are stable. She remains on Lovenox and she is also on IV Solu-Medrol. #2. Advanced COPD, used to wear home oxygen in the past, but most recently has not required #3. Osteoarthritis #4. History of hepatitis C, treated with hormone #5. Former smoker #6. History of multiple surgeries involving her right wrist, with extensive joint and nerve damage. Patient was recommended to have right upper arm amputation however she opted against amputation #7. Fibromyalgia #8. Depression #9. Increased d-dimer without CT evidence of pulmonary embolism Plan: Continue IV Solu-Medrol and the dose has been tapered down to 40 mg IV every 8 hours Wean FiO2 to maintain O2 sat at 89-90% Completed Remdesivir treatment, and the patient completed her treatment which was a 5 day course continue prophylactic anticoagulation with Lovenox 40 mg subcu every 24 hours The patient completed treatment with Tocilizumab 640 mg IV 1. Symbicort for COPD Ventolin HFA 4 times a day We'll continue to follow with inflammatory markers tomorrow Repeat chest x-ray in the morning Encouraged use of incentive spirometer The patient is performing prone body positioning We'll continue to follow.
[2021-03-16] MEDS: traZODone HCL 100 MG TAB PO SCH (23:00)
[2021-03-16] MEDS: risperiDONE 2 MG TAB PO SCH (23:11)
[2021-03-17] MEDS: hydrALAZINE HCL 25 MG TAB PO PRN ×2 (02:28→23:03)
[2021-03-17] MEDS: LEVOTHYROXINE 50 MCG TAB PO SCH (05:42)
--- NOTE | 2021-03-17 07:03 | XR ---
EXAMINATION TYPE: XR chest 1V DATE OF EXAM: 03/17/2021 CLINICAL HISTORY: Difficulty breathing progress study. TECHNIQUE: Single AP portable upright view of the chest is obtained. COMPARISON: Chest x-ray from 3 days earlier and older studies. FINDINGS: Long segment Jara rods in the thoracolumbar spine are partially imaged similar to pr ior. Cardiac silhouette size less prominent and remains within normal limits. Continued increased ret iculonodular markings bilaterally on background chronic emphysematous and parenchymal fibrotic aldridge es. No new pleural effusion or pneumothorax noted. Degenerative change bilateral glenohumeral joints. IMPRESSION: Continued bilateral reticulonodular opacities consistent with covid infection background chronic parenchymal and emphysematous change. No significant change from most recent x-ray.
[2021-03-17] MEDS: METOPROLOL TARTRATE 25 MG TAB PO SCH ×2 (08:00→20:27)
[2021-03-17] MEDS: ATORVASTATIN 10 MG TAB PO SCH (08:00)
[2021-03-17] MEDS: SERTRALINE 100 MG TAB PO SCH (08:00)
[2021-03-17] MEDS: CALCIUM CARBONATE 500 MG CHEWABLE PO SCH (08:00)
[2021-03-17] MEDS: GABAPENTIN 400 MG CAP PO SCH ×3 (08:00→20:27)
[2021-03-17] MEDS: lisinopriL 20 MG TAB PO SCH (08:00)
[2021-03-17] MEDS: amLODIPine 10 MG TAB PO SCH (08:00)
[2021-03-17] MEDS: ENOXAPARIN 40 MG/0.4 ML SYRINGE SQ SCH (08:01)
[2021-03-17] MEDS: ASCORBIC ACID 500 MG TAB PO SCH (08:01)
[2021-03-17] MEDS: RALOXIFENE 60 MG TAB PO SCH (08:01)
[2021-03-17] MEDS: DOCUSATE 100 MG CAP PO SCH ×2 (08:01→20:28)
[2021-03-17] MEDS: PANTOPRAZOLE 40 MG TABLET PO SCH (08:01)
[2021-03-17] MEDS: methylPREDNISolone SOD SUCCI 40 MG/ML 1 ML VIAL IV SCH ×3 (08:01→23:02)
[2021-03-17] MEDS: busPIRone HCl 10 MG TAB PO SCH ×2 (08:01→20:27)
[2021-03-17] MEDS: SYMBICORT 160-4.5 MCG INHALER INHALATION SCH ×3 (08:05→20:16)
[2021-03-17] MEDS: ALBUTEROL HFA INHALER INHALATION SCH ×5 (08:05→20:15)
--- NOTE | 2021-03-17 09:35 | P.PN ---
Subjective Progress Note Date: 03/17/21 She is still on 15 L of oxygen. Awake alert oriented 3. No major changes, no chest pain, no nausea or vomiting Objective - Vital Signs Vital signs: Vital Signs Temp 97.8 F 03/17/21 04:58 Pulse 97 03/17/21 04:58 Resp 24 03/17/21 04:58 BP 156/85 03/17/21 04:58 Pulse Ox 96 03/17/21 04:58 Intake & Output 03/16/21 03/17/21 03/17/21 18:59 06:59 18:59 Intake Total 1000 Balance 1000 Intake: Oral 1000 Other: Voiding Method Bedside Commode # Voids 1 2 # Bowel Movements 1 - Exam Constitutional: No acute distress, conversant, pleasant, on 100% oxygen/nonrebreather ENMT: NC/AT Neck:Supple, Lungs: Decreased breath sounds, no wheezing Abdominal: Soft Nontender, non distended Extremities: No clubbing cyanosis or edema Psychiatric: Alert and oriented to person, place and time Neuro: Muscles Strength 5/5 in all 4 extremities Cranial nerves II-XII grossly intact. - Labs CBC & Chem 7: 03/16/21 06:52 03/16/21 06:52 Assessment and Plan Plan: COVID pneumonitis with acute hypoxic respiratory failure -Continue Decadron, Vit C, Vit D, Melatonin, on Eliquis -Continue on oxygen up to 15 L high flow/nonrebreather. -Pulmonary consult appreciated input. Continue current management, no major changes Lactic acidosis -Monitor to resolution Thrombocytopenia -Likely secondary to acute stressor -Resolved Chronic conditions: COPD, hypertension, hyperlipidemia, hypothyroidism -Continue with home medications Essential hypertension: Continue home medications, increased Norvasc to 10 mg, and metoprolol to 25 twice a day, continue lisinopril 40, add HCTZ 25 mg daily DVT prophylaxis -Lovenox CODE STATUS: Full Code Discussed with: patient Anticipated discharge date: 2-[address]: Home versus rehab, pending clinical progression
[2021-03-17] MEDS: hydroCHLOROthiazide 25 MG TAB PO SCH (09:44)
[2021-03-17] MEDS: Phenol 1.4% Sore Throat Spray Bottle MUCOUS MEM PRN (09:45)
[2021-03-17 11:21] LABS: Basophils # (A) 0.01 X 10*3/uL (0.00-0.10); Basophils % (A) 0.1 %; Eosinophils # (A) 0.04 X 10*3/uL (0.04-0.35); Eosinophils % (A) 0.5 %; HCT 39.6 % (37.2-46.3); HGB 12.8 g/dL (12.0-15.0); Lymphocytes # (A) 0.47 X 10*3/uL (0.90-5.00); Lymphocytes % (A) 5.3 %; MCH 30.1 pg (27.0-32.0); MCHC 32.3 g/dL (32.0-37.0); MCV 93.2 fL (80.0-97.0); Mean Platelet Volume 11.9 fL (9.5-12.2); Monocytes # (A) 0.28 X 10*3/uL (0.20-1.00); Monocytes % (A) 3.2 %; Neutrophils # (A) 7.96 X 10*3/uL (1.80-7.70); Neutrophils % (A) 90.2 %; Platelet Count 173 X 10*3/uL (140-440); RBC 4.25 X 10*6/uL (4.10-5.20); RDW 13.4 % (11.5-14.5); WBC 8.82 X 10*3/uL (4.50-10.00)
--- NOTE | 2021-03-17 13:47 | P.PN ---
Subjective Progress Note Date: 03/17/21 This is a 70-year-old white female patient with past medical history of advanced COPD used to wear oxygen at one point, currently not on any home oxygen, former smoker, hep C treated with Harvoni, osteoarthritis, fibromyalgia, who came to the emergency department on 03/07/2021 for evaluation of cough, dyspnea, fatigue and myalgias, her symptoms have been present for approximately one week. Patient has no contact with coronavirus. In addition she has poor appetite, nausea, vomiting and diarrhea, she has anginal chest tightness without central chest pain. Chest x-ray shows diffuse moderate interstitial opacities in the left mid to lower lung and right lung base, no pleural effusion or pneumothorax. CTA chest shows bilateral opacities. Admission labs showed white blood cell, 4.5, hemoglobin 13, platelet count of 70, lymphocyte count of 0.14, d-dimer is 1.40, sodium is 137, potassium is 4.6, chloride is 103, CO2 is 18, BUN is 20, creatinine is 1.04. Plasma lactic acid is 2.7, ferritin level is 484, total bilirubin is 1.4, AST is 42, ALT is 23, alkaline phosphatase is 180, LDH is 710, CRP is 146.4, pro calcitonin level is 0.11, COVID 19 PCR. She is currently on 4 L of oxygen process between 92-95%, she is afebrile, still dyspneic, but no acute distress. Patient was started on Decadron, vitamins, and we'll start the patient on Remdesivir Patient was reevaluated today on 03/09/2021, patient remains on 6 L high flow nasal cannula, O2 sats is 91%. Patient tells me that she feels short of breath, no cough no wheezing no fever no chills. Her T-max yesterday was 99.6 today temperature is 98.3. Her WBC count is 5.4, basic metabolic profile is normal renal profile is normal LDH on admission was 710 and C-reactive protein was 146. D-dimer 1.40 platelets are 70,000. On 03/10/2001 patient seen in follow-up on medical surgical floor, today is Remdesivir date 3, FiO2 requirement is currently at 12 L, pulse ox is between 92-96%, still congested, coughing, lung sounds reveal diminished breath sounds with some crackles at the bases. No fever. Continues on Decadron 6 mg daily, vitamins, she is on Mucinex, he hasn't had a recent chest x-ray done for a couple of days, her last d-dimer was on 2020 and was at 1.4, no recent LDH a CRP. She states she would like a nebulizer treatment however in view of her quit positive status she cannot have a nebulizer we will order albuterol which she can have 4 times daily scheduled and as needed when necessary every 2 hours. In addition patient is on Symbicort. On 03/11/2021, the patient is being seen in follow-up. The patient continues to have a congested cough. She is feeling slightly better compared to yesterday. Note that she is on Decadron 6 mg by mouth every morning using Mucinex was also added yesterday because of her cough and congestion. She is on 12 L about 2 by nasal cannula. Current pulse ox is 91%. The patient has a CRP of 127 and a LDH level was 848 and the d-dimer is at 1.3. A repeat chest x-ray was done today showed bilateral interstitial infiltrates, increasing compared to yesterday and the patient has mild bilateral interstitial opacities bilaterally. No evidence of any pneumothorax. The patient has fusion hardware in the lumbar spine. She is afebrile. She is hemodynamic is stable. She is known to have underlying COPD and she is not oxygen dependent. She has also history of hepatitis C that was treated along with fibromyalgia and osteoarthritis and fibromyalgia. She has also chronic deformity of the right upper extremity. On 03/12/2021, the patient remains on 12 L approximately nasal cannula. She remains on Decadron IV Solu-Medrol. She is taking Mucinex for cough and congestion. Her pulse ox in the low 90s. She is less wheezy and less bronchospastic yesterday's evaluation. She is completing her course of Remdesivir today. The chest x-ray from yesterday was noted.. No nausea. No vomiting. No abdominal pain. CBC is within normal limits. And symmetrical m arkers are from yesterday. The patient remains on Lovenox.. . Blood pressure is on the higher side and the patient is going to take care of hypertensive medication which includes hydralazine. 03/13/2021 the patient is on 15 L about 2 by nasal cannula. Her pulse ox continues to fluctuate and the patient is having low pulse ox is as low as 85%. She is a nosebleed there. Overall condition is the same as yesterday. She remains on steroids. She completed her Remdesivir protocol and the patient is essentially not fully recovered at this point in time and she is still struggling with her oxygenation. She is laying down about comfortable. No nausea. No vomiting. No diarrhea. No abdominal pain. No chest pain. Her white cell count is at 8 with a hemoglobin of 13.4. She continues to have some lymphopenia. Otherwise, no other new labs. D-dimer LVH and CRP were nonelevated function days ago. Last chest x-ray was from 03/11/2021 and it showed stable bilateral pulmonary infiltrates. 03/14/2021, the patient remains on 15 L of oxygen by nasal cannula with a pulse ox of 95%. She is afebrile. She is resting comfortably in bed. Noted this patient has a history of advanced COPD. She is also history of hepatitis C and fibromyalgia. Nevertheless, the patient has never been maintained on oxygen. The patient presented to us few days back and the patient had progressive decl ine in her condition with the patient was requiring high flow of oxygen. She was treated with IV Solu-Medrol. Due to worsening of the chest x-ray findings and worsening his oxygenation was up to 15 L, we ordered tocilizumab V and the patient also was given Lovenox 40 prophylaxis 40 mg subcu on a daily basis. For now the patient is comfortable in bed. Her d-dimer was at 1.79. Her LDH level was up to 1075 and a CRP is a 56. The serum bicarb is up to 20. BUN is at 20 with a creatinine of 0.6. She continues to have some lymphopenia on her blood work. No other significant events otherwise for now. She is awake and she is following commands and answering questions. Tolerating her diet. The BP remains elevated and the patient is currently on Norvasc 10 mg by mouth daily, hydralazine 25 mg on a when necessary basis and Zestril 40 mg by mouth daily and the patient is also taking metoprolol 12.5 mg by mouth twice a day. She is also on a nicotine patch for smoking cessation. On 03/15/2021 patient seen in follow-up on medical floor, she states she is coughing frequently, but appears to be in no acute distress, she remains at 2 L of oxygen pulse ox is 96%, she was started on Remdesivir, and today is day 3 of treatment. No nausea vomiting diarrhea, she is tolerating oral intake, today's labs have been reviewed, her lymphocyte count is still low at 0.6, the rest of the CBC was within normal limits, d-dimer is 2.42, electrolytes and renal profile were unremarkable. CRP is down to 1.5, and LDH is 442. On 03/16/2021, I'm seeing the patient for a follow-up. Despite have high oxygen requirements, the patient continues to feel fine and she reports that she is feeling slightly better compared to yesterday. The patient currently is on 15 L of oxygen by nasal cannula in addition to 100% nonrebreather facemask. The patient is resting comfortably in bed. Pulse ox is ranging between 87-88%. She is afebrile. She is able to speak full sentences. Her breathing is nonlabored. She doesn't look to be toxic at all. The patient has a normal renal function. Normal electrolytes. D-dimer from few days back was 1.79. LDH from few days back was 1075 with a CRP of 56. The patient is currently on IV Solu Medrol 40 mg every 8 hours. She is also on Lovenox 40 mg subcu every 24 hours. Rest of the medications are all unchanged. Or 2020, the patient is feeling tired. She stated that she was feeling better yesterday and she seems to be essentially the same today. She is on 15 L nasal cannula along with 100% on a beta facemasks. Her current pulse ox is ranging between 90-95%. She is in bed most of the time. She would desaturate still easily with mobility and movement and cough and in talking. Her lymphocyte count is down to 0.4 and she does have chronic lymphopenia with a white cell count of 8.8. No other labs available from today. The medications i nclude Lovenox at a dose of 40 mg subcu for DVT prophylaxis once a day, she still in Solu-Medrol and the dose was tapered down to 40 mg IV every 8 hours. The patient has been in the hospital for the past 10 days. Rest of the medications of been all appropriate. No anxiety. No confusion. No agitation. No nausea. No vomiting. No diarrhea. Her most recent chest x-ray is from today which essentially showed bilateral reticular other opacities later to COVID-19 related pneumonia without any interval change along with some background COPD. Objective - Vital Signs Vital signs: Vital Signs Temp 97.8 F 03/17/21 10:00 Pulse 89 03/17/21 10:00 Resp 20 03/17/21 10:00 BP 156/85 03/17/21 04:58 Pulse Ox 90 L 03/17/21 10:00 Intake & Output 03/16/21 03/17/21 03/17/21 18:59 06:59 18:59 Intake Total 1000 Balance 1000 Intake: Oral 1000 Other: Voiding Method Bedside Commode # Voids 1 2 # Bowel Movements 1 - Exam GENERAL EXAM: Alert, pleasant, 70-year-old white female patient currently on 15 L of oxygen in addition to 100% on nonrebreather facemask with a pulse ox between 88-90% comfortable in no apparent distress. HEAD: Normocephalic/atraumatic. EYES: Normal reaction of pupils, equal size. Conjunctiva pink, sclera white. NOSE: Clear with pink turbinates. THROAT: No erythema or exudates. NECK: No masses, no JVD, no thyroid enlargement, no adenopathy. CHEST: No chest wall deformity. Symmetrical expansion. LUNGS: Equal air entry with his crackles and rhonchi CVS: Regular rate and rhythm, normal S1 and S2, no gallops, no murmurs, no rubs ABDOMEN: Soft, nontender. No hepatosplenomegaly, normal bowel sounds, no guarding or rigidity. EXTREMITIES: No clubbing, no edema, no cyanosis, 2+ pulses and upper and lower extremities. MUSCULOSKELETAL: Muscle strength and tone normal. Patient has deformity of the right arm, with history of multiple previous surgeries, extensive bone and nerve damage SPINE: No scoliosis or deformity SKIN: No rashes CENTRAL NERVOUS SYSTEM: Alert and oriented -3. No focal deficits, tone is normal in all 4 extremities. PSYCHIATRIC: Alert and oriented -3. Appropriate affect. Intact judgment and insight. - Labs CBC & Chem 7: 03/17/21 07:03 03/16/21 06:52 Labs: Abnormal Lab Results - Last 24 Hours (Table) 03/17/21 Range/Units 07:03 Immature Gran # 0.06 H (0.00-0.04) X 10*3/uL Neutrophils # 7.96 H (1.80-7.70) X 10*3/uL Lymphocytes # 0.47 L (0.90-5.00) X 10*3/uL Assessment and Plan Plan: #1. Acute hypoxic respiratory failure related to acute COVID 19 pneumonia, with onset of symptoms within 1 week of presentation, patient completed Remdesivir treatment and the patient is also on IV Solu-Medrol 40 mg 8 hours. , we have also treated the patient with Tocilizumab 640 mg IV 1. Currently is on 15 L nasal cannula in combination with 100% nonrebreather facemask. His on Lovenox for DVT prophylaxis. Overall pulmonary status is stable, very much dependent on high flow oxygen at 15 L along with 100% nonrebreather facemask. #2. Advanced COPD, used to wear home oxygen in the past, but most recently has not required #3. Osteoarthritis #4. History of hepatitis C, treated with hormone #5. Former smoker #6. History of multiple surgeries involving her right wrist, with extensive joint and nerve damage. Patient was recommended to have right upper arm amputation however she opted against amputation #7. Fibromyalgia #8. Depression #9. Increased d-dimer without CT evidence of pulmonary embolism #10 hypertension and the patient is currently on a combination of antihypertensive medication including Norvasc and hydralazine as needed and lisinopril 40 mg by mouth daily and metoprolol 25 mg by mouth twice a day. Plan: Continue IV Solu-Medrol and the dose has been tapered down to 40 mg IV every 8 hours Wean FiO2 to maintain O2 sat at 89-90% Completed Remdesivir treatment, and the patient completed her treatment which was a 5 day course continue prophylactic anticoagulation with Lovenox 40 mg subcu every 24 hours The patient completed treatment with Tocilizumab 640 mg IV 1. Symbicort for COPD Ventolin HFA 4 times a day We'll continue to follow with inflammatory markers tomorrow Repeat chest x-ray in the morning Encouraged use of incentive spirometer The patient is performing prone body positioning For any further weaning of the oxygen for now. Occupation remains borderline. Chest is a findings are stable. We'll continue to follow. She is slow to progress. We'll continue to follow.
[2021-03-17] MEDS: traZODone HCL 100 MG TAB PO SCH (20:27)
[2021-03-17] MEDS: oxyCODONE-APAP 7.5-325MG 1 EACH TAB PO PRN (20:28)
[2021-03-17] MEDS: risperiDONE 2 MG TAB PO SCH (20:28)
[2021-03-18] MEDS: BENZONATATE 100 MG CAP PO PRN ×2 (03:15→20:25)
[2021-03-18 03:53] LABS: ALT 29 U/L (4-34); AST 30 U/L (14-36); African American GFR (CKD) >90 (>60 ml/min/1.73 sqM); Albumin 3.4 g/dL (3.5-5.0); Albumin/Globulin Ratio 1.1; Alkaline Phosphatase 133 U/L (38-126); Anion Gap 9 mmol/L; Blood Urea Nitrogen 20 mg/dL (7-17); Carbon Dioxide 24 mmol/L (22-30); Chloride 106 mmol/L (98-107); Glucose 115 mg/dL (74-99); Non-African American GFR(CKD) >90 (>60 ml/min/1.73 sqM); Potassium 3.8 mmol/L (3.5-5.1); Sodium 139 mmol/L (137-145); Total Bilirubin 0.4 mg/dL (0.2-1.3); Total Protein 6.4 g/dL (6.3-8.2)
[2021-03-18] MEDS: LEVOTHYROXINE 50 MCG TAB PO SCH (05:39)
[2021-03-18 06:28] LABS: Basophils % (A) 0 %; Eosinophils # (A) 0.2 k/uL (0-0.7); Eosinophils % (A) 1 %; HCT 43.6 % (34.0-46.0); HGB 14.4 gm/dL (11.4-16.0); Lymphocytes # (A) 0.8 k/uL (1.0-4.8); Lymphocytes % (A) 4 %; MCH 30.2 pg (25.0-35.0); MCV 91.4 fL (80.0-100.0); Mean Platelet Volume 9.1; Monocytes # (A) 0.6 k/uL (0-1.0); Monocytes % (A) 3 %; Neutrophils # (A) 17.5 k/uL (1.3-7.7); Neutrophils % (A) 91 %; Platelet Count 251 k/uL (150-450); RBC 4.77 m/uL (3.80-5.40); RDW 13.6 % (11.5-15.5); WBC 19.1 k/uL (3.8-10.6)
[2021-03-18 06:37] LABS: ALT 34 U/L (4-34); AST 38 U/L (14-36); African American GFR (CKD) >90 (>60 ml/min/1.73 sqM); Albumin 3.8 g/dL (3.5-5.0); Albumin/Globulin Ratio 1.2; Alkaline Phosphatase 134 U/L (38-126); Anion Gap 11 mmol/L; Blood Urea Nitrogen 25 mg/dL (7-17); Calcium 9.1 mg/dL (8.4-10.2); Carbon Dioxide 21 mmol/L (22-30); Chloride 106 mmol/L (98-107); Globulin 3.1 g/dL; Glucose 133 mg/dL (74-99); Non-African American GFR(CKD) 82 (>60 ml/min/1.73 sqM); Potassium 4.2 mmol/L (3.5-5.1); Sodium 138 mmol/L (137-145); Total Bilirubin 0.5 mg/dL (0.2-1.3); Total Protein 6.9 g/dL (6.3-8.2)
[2021-03-18] MEDS: amLODIPine 10 MG TAB PO SCH (07:55)
[2021-03-18] MEDS: ATORVASTATIN 10 MG TAB PO SCH (07:55)
[2021-03-18] MEDS: RALOXIFENE 60 MG TAB PO SCH (07:55)
[2021-03-18] MEDS: GABAPENTIN 400 MG CAP PO SCH ×3 (07:55→20:25)
[2021-03-18] MEDS: PANTOPRAZOLE 40 MG TABLET PO SCH (07:56)
[2021-03-18] MEDS: SERTRALINE 100 MG TAB PO SCH (07:56)
[2021-03-18] MEDS: ENOXAPARIN 40 MG/0.4 ML SYRINGE SQ SCH (07:56)
[2021-03-18] MEDS: hydroCHLOROthiazide 25 MG TAB PO SCH (07:56)
[2021-03-18] MEDS: lisinopriL 20 MG TAB PO SCH (07:56)
[2021-03-18] MEDS: ASCORBIC ACID 500 MG TAB PO SCH (07:56)
[2021-03-18] MEDS: busPIRone HCl 10 MG TAB PO SCH ×2 (07:56→20:25)
[2021-03-18] MEDS: CALCIUM CARBONATE 500 MG CHEWABLE PO SCH (07:56)
[2021-03-18] MEDS: METOPROLOL TARTRATE 25 MG TAB PO SCH ×2 (07:56→20:25)
[2021-03-18] MEDS: DOCUSATE 100 MG CAP PO SCH ×2 (07:57→20:24)
[2021-03-18] MEDS: methylPREDNISolone SOD SUCCI 40 MG/ML 1 ML VIAL IV SCH ×3 (07:57→23:04)
[2021-03-18] MEDS: oxyCODONE-APAP 7.5-325MG 1 EACH TAB PO PRN ×2 (08:08→20:24)
[2021-03-18] MEDS: ALBUTEROL HFA INHALER INHALATION SCH ×4 (09:06→19:12)
[2021-03-18] MEDS: SYMBICORT 160-4.5 MCG INHALER INHALATION SCH ×2 (09:06→19:11)
--- NOTE | 2021-03-18 10:15 | P.PN ---
Subjective Progress Note Date: 03/18/21 Remains on high flow/ on 15 L of oxygen. Awake alert oriented 3. No major changes, no chest pain, no nausea or vomiting Eating breakfast. Objective - Vital Signs Vital signs: Vital Signs Temp 98.2 F 03/18/21 10:00 Pulse 95 03/18/21 10:00 Resp 22 03/18/21 10:00 BP 164/82 03/18/21 10:00 Pulse Ox 93 L 03/18/21 10:00 Intake & Output 03/17/21 03/18/21 03/18/21 18:59 06:59 18:59 Intake Total 700 Balance 700 Intake: Oral 700 Other: Voiding Method Bedside Commode Bedside Commode # Voids 1 1 - Exam Constitutional: No acute distress, conversant, pleasant, on 100% oxygen/nonrebreather ENMT: NC/AT Neck:Supple, Lungs: Decreased breath sounds, no wheezing Abdominal: Soft Nontender, non distended Extremities: no cce Psychiatric: Alert and oriented to person, place and time Neuro: Muscles Strength 5/5 in all 4 extremities Cranial nerves II-XII grossly intact. - Labs CBC & Chem 7: 03/18/21 05:39 03/18/21 05:39 Labs: Abnormal Lab Results - Last 24 Hours (Table) 03/17/21 03/17/21 03/18/21 Range/Units 07:03 07:03 05:39 WBC 19.1 H (3.8-10.6) k/uL Immature Gran # 0.06 H (0.00-0.04) X 10*3/uL Neutrophils # 7.96 H 17.5 H (1.80-7.70) X 10*3/uL Lymphocytes # 0.47 L 0.8 L (0.90-5.00) X 10*3/uL Carbon Dioxide (22-30) mmol/L BUN 20 H (7-17) mg/dL Glucose 115 H (74-99) mg/dL AST (14-36) U/L Alkaline Phosphatase 133 H (38-126) U/L Albumin 3.4 L (3.5-5.0) g/dL 03/18/21 Range/Units 05:39 WBC (3.8-10.6) k/uL Immature Gran # (0.00-0.04) X 10*3/uL Neutrophils # (1.80-7.70) X 10*3/uL Lymphocytes # (0.90-5.00) X 10*3/uL Carbon Dioxide 21 L (22-30) mmol/L BUN 25 H (7-17) mg/dL Glucose 133 H (74-99) mg/dL AST 38 H (14-36) U/L Alkaline Phosphatase 134 H (38-126) U/L Albumin (3.5-5.0) g/dL Assessment and Plan Plan: COVID pneumonitis with acute hypoxic respiratory failure -Continue Decadron, Vit C, Vit D, Melatonin, on Eliquis -Continue on oxygen up to 15 L high flow/nonrebreather. -Pulmonary consult appreciated input. Continue current management, no major changes, ccm Lactic acidosis -Monitor to resolution Thrombocytopenia -Likely secondary to acute stressor -Resolved Chronic conditions: COPD, hypertension, hyperlipidemia, hypothyroidism -Continue with home medications Essential hypertension: Continue home medications, increased Norvasc to 10 mg, and metoprolol to 25 twice a day, continue lisinopril 40, add HCTZ 25 mg daily DVT prophylaxis -Lovenox Leukocytosis Likely associated with being on steroids, WBC up to 19,000. CODE STATUS: Full Code Discussed with: patient Anticipated discharge date: 3-[address]: Home versus rehab, pending clinical progression
--- NOTE | 2021-03-18 14:51 | P.PN ---
Subjective Progress Note Date: 03/18/21 Principal diagnosis: Acute hypoxic respiratory failure secondary to acute Covid 19 pneumonia This is a 70-year-old white female patient with past medical history of advanced COPD used to wear oxygen at one point, currently not on any home oxygen, former smoker, hep C treated with Harvoni, osteoarthritis, fibromyalgia, who came to the emergency department on 03/07/2021 for evaluation of cough, dyspnea, fatigue and myalgias, her symptoms have been present for approximately one week. Patient has no contact with coronavirus. In addition she has poor appetite, nausea, vomiting and diarrhea, she has anginal chest tightness without central chest pain. Chest x-ray shows diffuse moderate interstitial opacities in the left mid to lower lung and right lung base, no pleural effusion or pneumothorax. CTA chest shows bilateral opacities. Admission labs showed white blood cell, 4.5, hemoglobin 13, platelet count of 70, lymphocyte count of 0.14, d-dimer is 1.40, sodium is 137, potassium is 4.6, chloride is 103, CO2 is 18, BUN is 20, creatinine is 1.04. Plasma lactic acid is 2.7, ferritin level is 484, total bilirubin is 1.4, AST is 42, ALT is 23, alkaline phosphatase is 180, LDH is 710, CRP is 146.4, pro calcitonin level is 0.11, COVID 19 PCR. She is currently on 4 L of oxygen process between 92-95%, she is afebrile, still dyspneic, but no acute distress. Patient was started on Decadron, vitamins, and we'll start the patient on Remdesivir Patient was reevaluated today on 03/09/2021, patient remains on 6 L high flow nasal cannula, O2 sats is 91%. Patient tells me that she feels short of breath, no cough no wheezing no fever no chills. Her T-max yesterday was 99.6 today temperature is 98.3. Her WBC count is 5.4, basic metabolic profile is normal renal profile is normal LDH on admission was 710 and C-reactive protein was 146. D-dimer 1.40 platelets are 70,000. On 03/10/2001 patient seen in follow-up on medical surgical floor, today is Remdesivir date 3, FiO2 requirement is currently at 12 L, pulse ox is between 92-96%, still congested, coughing, lung sounds reveal diminished breath sounds with some crackles at the bases. No fever. Continues on Decadron 6 mg daily, vitamins, she is on Mucinex, he hasn't had a recent chest x-ray done for a coupl e of days, her last d-dimer was on 2020 and was at 1.4, no recent LDH a CRP. She states she would like a nebulizer treatment however in view of her quit positive status she cannot have a nebulizer we will order albuterol which she can have 4 times daily scheduled and as needed when necessary every 2 hours. In addition patient is on Symbicort. On 03/15/2021 patient seen in follow-up on medical surgical floor, she continues to require high flow oxygen per 15 L high flow and are present a nonrebreather mask, she states her dyspnea is not worsened. Still coughing, and at times she is able to bring up some phlegm, her pulse ox is 91-92%, for chest pain, she is able to bring up some phlegm at times, no new chest x-ray today, yesterday she received 640 mg Tocilizumab in view of worsening hypoxia, she also remains on IV Solu-Medrol. D-dimer was 1.79 yesterday's labs, d-dimer and LDH a CRP will be ordered for tomorrow. No complaints chest pain, no hemoptysis, no fever. On 03/18/2001 patient seen in follow-up on medical surgical floor, she states she has no worsening dyspnea, although still requiring high flow oxygen at 15 L and 100% nonrebreather mask, and she seems to be breathing comfortably at this time, patient is trying to eat a cookie at the time of my examination, she has a nonrebreather mask off, and on 15 L of oxygen her pulse ox is 73%, but she looks comfortable, in the 100% nonrebreather mask will be placed back on her when she is done eating. He is calm and cooperative, she is oriented 3, no cough, no chest pain. Last chest x-ray was yesterday showing continue bilateral reticulonodular opacities consistent with COVID infection on the background of c hronic parenchymal and emphysematous changes, with no significant change from most recent chest x-ray. Her labs today show white blood cell, 19.1, hemoglobin of 14.4, CO2 is 21, the rest of the electrolytes are within normal limits, B1 is 25, creatinine 0.74, no nausea vomiting or diarrhea, patient is tolerating oral intake. She status post Toci, and she remains on Solu-Medrol at 40 mg every 8 h ours and prophylactic dose of Lovenox. Objective - Vital Signs Vital signs: Vital Signs Temp 98.4 F 03/18/21 13:56 Pulse 88 03/18/21 13:56 Resp 22 03/18/21 13:56 BP 117/73 03/18/21 13:56 Pulse Ox 91 L 03/18/21 13:56 Intake & Output 03/17/21 03/18/21 03/18/21 18:59 06:59 18:59 Intake Total 700 Balance 700 Intake: Oral 700 Other: Voiding Method Bedside Commode Bedside Commode # Voids 1 1 - Exam GENERAL EXAM: Alert, pleasant, 70-year-old white female patient currently on 15 L of oxygen and heart percent nonrebreather mask with a pulse ox between 91% comfortable in no apparent distress. Patient does desat to 73% on 15 L high carol w nasal cannula when the nonrebreather mask is removed but appears to be breathing comfortably HEAD: Normocephalic/atraumatic. EYES: Normal reaction of pupils, equal size. Conjunctiva pink, sclera white. NOSE: Clear with pink turbinates. THROAT: No erythema or exudates. NECK: No masses, no JVD, no thyroid enlargement, no adenopathy. CHEST: No chest wall deformity. Symmetrical expansion. LUNGS: Equal air entry with his crackles and rhonchi CVS: Regular rate and rhythm, normal S1 and S2, no gallops, no murmurs, no rubs ABDOMEN: Soft, nontender. No hepatosplenomegaly, normal bowel sounds, no guarding or rigidity. EXTREMITIES: No clubbing, no edema, no cyanosis, 2+ pulses and upper and lower extremities. MUSCULOSKELETAL: Muscle strength and tone normal. Patient has deformity of the right arm, with history of multiple previous surgeries, extensive bone and nerve damage SPINE: No scoliosis or deformity SKIN: No rashes CENTRAL NERVOUS SYSTEM: Alert and oriented -3. No focal deficits, tone is normal in all 4 extremities. PSYCHIATRIC: Alert and oriented -3. Appropriate affect. Intact judgment and insight. - Labs CBC & Chem 7: 04/19/21 05:39 03/18/21 05:39 Labs: Abnormal Lab Results - Last 24 Hours (Table) 03/17/21 03/18/21 03/18/21 Range/Units 07:03 05:39 05:39 WBC 19.1 H (3.8-10.6) k/uL Neutrophils # 17.5 H (1.3-7.7) k/uL Lymphocytes # 0.8 L (1.0-4.8) k/uL Carbon Dioxide 21 L (22-30) mmol/L BUN 20 H 25 H (7-17) mg/dL Glucose 115 H 133 H (74-99) mg/dL AST 38 H (14-36) U/L Alkaline Phosphatase 133 H 134 H (38-126) U/L Albumin 3.4 L (3.5-5.0) g/dL Assessment and Plan Plan: Assessment: #1. Acute hypoxic respiratory failure related to acute COVID 19 pneumonia, with onset of symptoms within 1 week of presentation, patient was started on Remdesivir on 03/08/2021 however her hypoxia had progressed and we stopped of Remdesivir and gave Toci on 03/14/2021 #2. Advanced COPD, used to wear home oxygen in the past, but most recently has not required it, #3. Osteoarthritis #4. History of hepatitis C, treated with hormone #5. Former smoker #6. History of multiple surgeries involving her right wrist, with extensive joint and nerve damage. Patient was recommended to have right upper arm amputation however she opted against amputation #7. Fibromyalgia #8. Depression #9. Increased d-dimer without CT evidence of pulmonary embolism Plan: Continue Solu-Medrol Continue current dose Lovenox and we will obtain follow-up d-dimer Obtain follow-up inflammatory markers Continue inhalers Continue vitamins Still requiring high flow oxygen in the 100% nonrebreather mask, but denies any worsening dyspnea We'll continue to follow I performed a history & physical examination of the patient and discussed their management with my nurse practitioner, Lucia Kinsey. I reviewed the nurse practitioner's note and agree with the documented findings and plan of care. Lung sounds are positive for diminished breath sounds with bilateral crackles. The findings and the impression was discussed with the patient. I attest to the documentation by the nurse practitioner. Time with Patient: Less than 30
[2021-03-18] MEDS: traZODone HCL 100 MG TAB PO SCH (20:24)
[2021-03-18] MEDS: risperiDONE 2 MG TAB PO SCH (20:25)
[2021-03-18] MEDS: MELATONIN 5 MG TABLET PO PRN (20:25)
[2021-03-18] MEDS: Phenol 1.4% Sore Throat Spray Bottle MUCOUS MEM PRN (20:28)
[2021-03-19] MEDS: LEVOTHYROXINE 50 MCG TAB PO SCH (05:46)
[2021-03-19] MEDS: ALBUTEROL HFA INHALER INHALATION SCH ×4 (07:32→19:02)
[2021-03-19] MEDS: SYMBICORT 160-4.5 MCG INHALER INHALATION SCH ×2 (07:32→19:02)
[2021-03-19] MEDS: CALCIUM CARBONATE 500 MG CHEWABLE PO SCH (07:42)
[2021-03-19] MEDS: METOPROLOL TARTRATE 25 MG TAB PO SCH ×2 (07:42→21:24)
[2021-03-19] MEDS: amLODIPine 10 MG TAB PO SCH (07:42)
[2021-03-19] MEDS: ENOXAPARIN 40 MG/0.4 ML SYRINGE SQ SCH (07:42)
[2021-03-19] MEDS: hydroCHLOROthiazide 25 MG TAB PO SCH (07:42)
[2021-03-19] MEDS: GABAPENTIN 400 MG CAP PO SCH ×3 (07:43→21:24)
[2021-03-19] MEDS: methylPREDNISolone SOD SUCCI 40 MG/ML 1 ML VIAL IV SCH ×2 (07:43→16:02)
[2021-03-19] MEDS: busPIRone HCl 10 MG TAB PO SCH ×2 (07:43→21:24)
[2021-03-19] MEDS: SERTRALINE 100 MG TAB PO SCH (07:43)
[2021-03-19] MEDS: lisinopriL 20 MG TAB PO SCH (07:43)
[2021-03-19] MEDS: PANTOPRAZOLE 40 MG TABLET PO SCH (07:43)
[2021-03-19] MEDS: ASCORBIC ACID 500 MG TAB PO SCH (07:43)
[2021-03-19] MEDS: ATORVASTATIN 10 MG TAB PO SCH (07:43)
[2021-03-19] MEDS: DOCUSATE 100 MG CAP PO SCH ×2 (07:43→21:23)
[2021-03-19] MEDS: RALOXIFENE 60 MG TAB PO SCH (07:44)
[2021-03-19 10:43] LABS: Basophils # (A) 0.03 X 10*3/uL (0.00-0.10); Basophils % (A) 0.2 %; Eosinophils # (A) 0.04 X 10*3/uL (0.04-0.35); Eosinophils % (A) 0.2 %; HGB 14.3 g/dL (12.0-15.0); Lymphocytes # (A) 0.91 X 10*3/uL (0.90-5.00); Lymphocytes % (A) 5.1 %; MCH 29.8 pg (27.0-32.0); MCHC 31.1 g/dL (32.0-37.0); MCV 95.8 fL (80.0-97.0); Mean Platelet Volume 12.2 fL (9.5-12.2); Monocytes # (A) 0.53 X 10*3/uL (0.20-1.00); Neutrophils % (A) 90.3 %; Platelet Count 181 X 10*3/uL (140-440); RDW 13.4 % (11.5-14.5); WBC 17.82 X 10*3/uL (4.50-10.00)
--- NOTE | 2021-03-19 11:21 | P.PN ---
Subjective Progress Note Date: 03/19/21 Remains on high flow/ on 15 L of oxygen. Awake alert oriented 3. No major changes, no chest pain, no nausea or vomiting. She denies shortness of breath. Objective - Vital Signs Vital signs: Vital Signs Temp 97.4 F L 03/19/21 09:53 Pulse 88 03/19/21 09:53 Resp 24 03/19/21 09:53 BP 154/92 03/19/21 09:53 Pulse Ox 94 L 03/19/21 09:53 Intake & Output 03/18/21 03/19/21 03/19/21 18:59 06:59 18:59 Other: Voiding Method Bedside Commode Bedside Commode # Voids 3 1 - Exam Constitutional: No acute distress, conversant, pleasant, on 100% oxygen/nonrebreather ENMT: NC/AT Neck:Supple, Lungs: Decreased breath sounds, no wheezing Abdominal: Soft Nontender, non distended Extremities: no cce Alert and oriented to person, place and time Neuro: Muscles Strength 5/5 in all 4 extremities Cranial nerves II-XII grossly intact. - Labs CBC & Chem 7: 03/19/21 07:34 03/18/21 05:39 Labs: Abnormal Lab Results - Last 24 Hours (Table) 03/19/21 03/19/21 Range/Units 07:34 07:34 WBC 17.82 H (4.50-10.00) X 10*3/uL MCHC 31.1 L (32.0-37.0) g/dL Immature Gran # 0.21 H (0.00-0.04) X 10*3/uL Neutrophils # 16.10 H (1.80-7.70) X 10*3/uL D-Dimer 1.73 H (<0.60) mg/L FEU Assessment and Plan Plan: COVID pneumonitis with acute hypoxic respiratory failure -Continue Solu-Medrol, Vit C, Vit D, Melatonin, on Lovenox -Continue on oxygen 15 L high flow/nonrebreather. -Pulmonary consult appreciated input. Continue current management, no major changes, ccm Lactic acidosis -Monitor to resolution Thrombocytopenia -Likely secondary to acute stressor -Resolved Chronic conditions: COPD, hypertension, hyperlipidemia, hypothyroidism -Continue with home medications Essential hypertension: Continue home medications, increased Norvasc to 10 mg, and metoprolol to 25 twice a day, continue lisinopril 40, added HCTZ 25 mg daily, blood pressure better. Leukocytosis Likely associated with being on steroids, WBC up to 19,000, now down to 17,000. DVT prophylaxis -Lovenox CODE STATUS: Full Code Discussed with: patient Anticipated discharge date: 3-[address]: Home versus rehab, pending clinical progression
--- NOTE | 2021-03-19 16:46 | P.PN ---
Subjective Progress Note Date: 03/19/21 Principal diagnosis: Acute hypoxic respiratory failure secondary to acute Covid 19 pneumonia This is a 70-year-old white female patient with past medical history of advanced COPD used to wear oxygen at one point, currently not on any home oxygen, former smoker, hep C treated with Harvoni, osteoarthritis, fibromyalgia, who came to the emergency department on 03/07/2021 for evaluation of cough, dyspnea, fatigue and myalgias, her symptoms have been present for approximately one week. Patient has no contact with coronavirus. In addition she has poor appetite, nausea, vomiting and diarrhea, she has anginal chest tightness without central chest pain. Chest x-ray shows diffuse moderate interstitial opacities in the left mid to lower lung and right lung base, no pleural effusion or pneumothorax. CTA chest shows bilateral opacities. Admission labs showed white blood cell, 4.5, hemoglobin 13, platelet count of 70, lymphocyte count of 0.14, d-dimer is 1.40, sodium is 137, potassium is 4.6, chloride is 103, CO2 is 18, BUN is 20, creatinine is 1.04. Plasma lactic acid is 2.7, ferritin level is 484, total bilirubin is 1.4, AST is 42, ALT is 23, alkaline phosphatase is 180, LDH is 710, CRP is 146.4, pro calcitonin level is 0.11, COVID 19 PCR. She is currently on 4 L of oxygen process between 92-95%, she is afebrile, still dyspneic, but no acute distress. Patient was started on Decadron, vitamins, and we'll start the patient on Remdesivir Patient was reevaluated today on 03/09/2021, patient remains on 6 L high flow nasal cannula, O2 sats is 91%. Patient tells me that she feels short of breath, no cough no wheezing no fever no chills. Her T-max yesterday was 99.6 today temperature is 98.3. Her WBC count is 5.4, basic metabolic profile is normal renal profile is normal LDH on admission was 710 and C-reactive protein was 146. D-dimer 1.40 platelets are 70,000. On 03/10/2001 patient seen in follow-up on medical surgical floor, today is Remdesivir date 3, FiO2 requirement is currently at 12 L, pulse ox is between 92-96%, still congested, coughing, lung sounds reveal diminished breath sounds with some crackles at the bases. No fever. Continues on Decadron 6 mg daily, vitamins, she is on Mucinex, he hasn't had a recent chest x-ray done for a coupl e of days, her last d-dimer was on 2020 and was at 1.4, no recent LDH a CRP. She states she would like a nebulizer treatment however in view of her quit positive status she cannot have a nebulizer we will order albuterol which she can have 4 times daily scheduled and as needed when necessary every 2 hours. In addition patient is on Symbicort. On 03/15/2021 patient seen in follow-up on medical surgical floor, she continues to require high flow oxygen per 15 L high flow and are present a nonrebreather mask, she states her dyspnea is not worsened. Still coughing, and at times she is able to bring up some phlegm, her pulse ox is 91-92%, for chest pain, she is able to bring up some phlegm at times, no new chest x-ray today, yesterday she received 640 mg Tocilizumab in view of worsening hypoxia, she also remains on IV Solu-Medrol. D-dimer was 1.79 yesterday's labs, d-dimer and LDH a CRP will be ordered for tomorrow. No complaints chest pain, no hemoptysis, no fever. On 03/18/2001 patient seen in follow-up on medical surgical floor, she states she has no worsening dyspnea, although still requiring high flow oxygen at 15 L and 100% nonrebreather mask, and she seems to be breathing comfortably at this time, patient is trying to eat a cookie at the time of my examination, she has a nonrebreather mask off, and on 15 L of oxygen her pulse ox is 73%, but she looks comfortable, in the 100% nonrebreather mask will be placed back on her when she is done eating. He is calm and cooperative, she is oriented 3, no cough, no chest pain. Last chest x-ray was yesterday showing continue bilateral reticulonodular opacities consistent with COVID infection on the background of c hronic parenchymal and emphysematous changes, with no significant change from most recent chest x-ray. Her labs today show white blood cell, 19.1, hemoglobin of 14.4, CO2 is 21, the rest of the electrolytes are within normal limits, B1 is 25, creatinine 0.74, no nausea vomiting or diarrhea, patient is tolerating oral intake. She status post Toci, and she remains on Solu-Medrol at 40 mg every 8 h ours and prophylactic dose of Lovenox. On 03/19/2031 patient seen in follow-up on medical surgical floor, she still remains on high flow nasal cannula at 15 L and 100% nonrebreather mask, she does desaturate into the low 70s when she removes nonrebreather mask however she does not become any more short of breath, seems to be breathing very comfortably, she is currently sitting up in the chair, she is frequently reminded not to remove the nonrebreather mask, she states that she still has occasional cough with production of creamy white phlegm, no hemoptysis, no chest pain, lung sounds reveal some scattered crackles, she is alert and oriented 3, appears to be breathing quite comfortably, no new chest x-ray today, his labs reveal white blood cell count of 17.8, d-dimer is 1.73, BMP is pending, will continue current medical treatment and patient is on prophylactic dose Lovenox, remains on IV Solu-Medrol 40 mg every 8 hours, Symbicort, vitamins, and inhalers Objective - Vital Signs Vital signs: Vital Signs Temp 97.4 F L 03/19/21 14:00 Pulse 80 03/19/21 14:00 Resp 19 03/19/21 14:00 BP 135/71 03/19/21 14:00 Pulse Ox 97 03/19/21 14:00 Intake & Output 03/18/21 03/19/21 03/19/21 18:59 06:59 18:59 Output Total 3 Balance -3 Output: Urine 3 Other: Voiding Method Bedside Commode Bedside Commode # Voids 3 1 - Exam GENERAL EXAM: Alert, pleasant, 70-year-old white female patient currently on 15 L of oxygen and 100 percent nonrebreather mask with a pulse ox between 97% comfortable in no apparent distress. Patient does desat to 73% on 15 L high flow nasal cannula when the nonrebreather mask is removed but appears to be br eathing comfortably HEAD: Normocephalic/atraumatic. EYES: Normal reaction of pupils, equal size. Conjunctiva pink, sclera white. NOSE: Clear with pink turbinates. THROAT: No erythema or exudates. NECK: No masses, no JVD, no thyroid enlargement, no adenopathy. CHEST: No chest wall deformity. Symmetrical expansion. LUNGS: Equal air entry with his crackles and rhonchi CVS: Regular rate and rhythm, normal S1 and S2, no gallops, no murmurs, no rubs ABDOMEN: Soft, nontender. No hepatosplenomegaly, normal bowel sounds, no guarding or rigidity. EXTREMITIES: No clubbing, no edema, no cyanosis, 2+ pulses and upper and lower extremities. MUSCULOSKELETAL: Muscle strength and tone normal. Patient has deformity of the right arm, with history of multiple previous surgeries, extensive bone and nerve damage SPINE: No scoliosis or deformity SKIN: No rashes CENTRAL NERVOUS SYSTEM: Alert and oriented -3. No focal deficits, tone is normal in all 4 extremities. PSYCHIATRIC: Alert and oriented -3. Appropriate affect. Intact judgment and insight. - Labs CBC & Chem 7: 03/19/21 07:34 03/18/21 05:39 Labs: Abnormal Lab Results - Last 24 Hours (Table) 03/19/21 03/19/21 Range/Units 07:34 07:34 WBC 17.82 H (4.50-10.00) X 10*3/uL MCHC 31.1 L (32.0-37.0) g/dL Immature Gran # 0.21 H (0.00-0.04) X 10*3/uL Neutrophils # 16.10 H (1.80-7.70) X 10*3/uL D-Dimer 1.73 H (<0.60) mg/L FEU Assessment and Plan Plan: Assessment: #1. Acute hypoxic respiratory failure related to acute COVID 19 pneumonia, with onset of symptoms within 1 week of presentation, patient was started on Remdesivir on 03/08/2021 however her hypoxia had progressed and we stopped of Remdesivir and gave Toci on 03/14/2021 #2. Advanced COPD, used to wear home oxygen in the past, but most recently has not required it, #3. Osteoarthritis #4. History of hepatitis C, treated with hormone #5. Former smoker #6. History of multiple surgeries involving her right wrist, with extensive joint and nerve damage. Patient was recommended to have right upper arm amputation however she opted against amputation #7. Fibromyalgia #8. Depression #9. Increased d-dimer without CT evidence of pulmonary embolism Plan: Weaning FiO2 to keep O2 sats ration between 89-90% Encourage deep breathing and coughing and incentive spirometry use Continue Solu-Medrol Continue current dose Lovenox Continue inhalers Continue vitamins We'll continue to follow I performed a history & physical examination of the patient and discussed their management with my nurse practitioner, Lucia Kinsey. I reviewed the nurse practitioner's note and agree with the documented findings and plan of care. Lung sounds are positive for diminished breath sounds with bilateral crackles. The findings and the impression was discussed with the patient. I attest to the documentation by the nurse practitioner. Time with Patient: Less than 30
[2021-03-19] MEDS: BENZONATATE 100 MG CAP PO PRN (21:23)
[2021-03-19] MEDS: traZODone HCL 100 MG TAB PO SCH (21:23)
[2021-03-19] MEDS: MELATONIN 5 MG TABLET PO PRN (21:24)
[2021-03-19] MEDS: risperiDONE 2 MG TAB PO SCH (21:24)
[2021-03-19] MEDS: oxyCODONE-APAP 7.5-325MG 1 EACH TAB PO PRN (21:24)
[2021-03-20 00:45] LABS: ALT 35 U/L (8-44); AST 28 U/L (13-35); African American GFR (CKD) 65.2 (60.0-200.0); Albumin/Globulin Ratio 1.83 (1.60-3.17); Alkaline Phosphatase 136 U/L (41-126); C Reactive Protein <0.4 mg/dL (0.0-0.8); Calcium 8.6 mg/dL (8.7-10.3); Carbon Dioxide 13.8 mmol/L (21.6-31.8); Chloride 109 mmol/L (96-109); Globulin 2.4 g/dL (1.6-3.3); Glucose 104 mg/dL (70-110); LDH 635 U/L (120-246); Non-African American GFR(CKD) 56.2 (60.0-200.0); Potassium 4.6 mmol/L (3.5-5.5); Sodium 145 mmol/L (135-145); Total Bilirubin 0.3 mg/dL (0.3-1.2); Total Protein 6.8 g/dL (6.2-8.2)
[2021-03-20] MEDS: methylPREDNISolone SOD SUCCI 40 MG/ML 1 ML VIAL IV SCH ×3 (01:04→15:16)
[2021-03-20] MEDS: LEVOTHYROXINE 50 MCG TAB PO SCH (05:47)
[2021-03-20] MEDS: hydroCHLOROthiazide 25 MG TAB PO SCH (07:38)
[2021-03-20] MEDS: SERTRALINE 100 MG TAB PO SCH (07:38)
[2021-03-20] MEDS: ENOXAPARIN 40 MG/0.4 ML SYRINGE SQ SCH (07:38)
[2021-03-20] MEDS: DOCUSATE 100 MG CAP PO SCH ×2 (07:39→22:05)
[2021-03-20] MEDS: CALCIUM CARBONATE 500 MG CHEWABLE PO SCH (07:39)
[2021-03-20] MEDS: ASCORBIC ACID 500 MG TAB PO SCH (07:39)
[2021-03-20] MEDS: oxyCODONE-APAP 7.5-325MG 1 EACH TAB PO PRN ×2 (07:39→22:05)
[2021-03-20] MEDS: busPIRone HCl 10 MG TAB PO SCH ×2 (07:39→22:05)
[2021-03-20] MEDS: lisinopriL 20 MG TAB PO SCH (07:39)
[2021-03-20] MEDS: METOPROLOL TARTRATE 25 MG TAB PO SCH ×2 (07:39→22:04)
[2021-03-20] MEDS: GABAPENTIN 400 MG CAP PO SCH ×3 (07:39→22:04)
[2021-03-20] MEDS: PANTOPRAZOLE 40 MG TABLET PO SCH (07:39)
[2021-03-20] MEDS: amLODIPine 10 MG TAB PO SCH (07:40)
[2021-03-20] MEDS: RALOXIFENE 60 MG TAB PO SCH (07:40)
[2021-03-20] MEDS: ATORVASTATIN 10 MG TAB PO SCH (07:41)
[2021-03-20] MEDS: ALBUTEROL HFA INHALER INHALATION SCH ×5 (09:06→20:07)
[2021-03-20] MEDS: SYMBICORT 160-4.5 MCG INHALER INHALATION SCH ×3 (09:07→20:07)
[2021-03-20 10:17] LABS: African American GFR (CKD) 65.2 (60.0-200.0); Albumin 3.9 g/dL (3.80-4.90); Albumin/Globulin Ratio 1.77 (1.60-3.17); Anion Gap 11.8 mmol/L (4.00-12.00); Calcium 9.1 mg/dL (8.7-10.3); Carbon Dioxide 22.2 mmol/L (21.6-31.8); Globulin 2.2 g/dL (1.6-3.3); Non-African American GFR(CKD) 56.2 (60.0-200.0); Potassium 4.4 mmol/L (3.5-5.5); Total Bilirubin 0.3 mg/dL (0.3-1.2); Total Protein 6.1 g/dL (6.2-8.2)
[2021-03-20 11:45] LABS: Basophils # (A) 0.01 X 10*3/uL (0.00-0.10); Basophils % (A) 0.1 %; Eosinophils # (A) 0.04 X 10*3/uL (0.04-0.35); Eosinophils % (A) 0.3 %; HCT 41.4 % (37.2-46.3); HGB 13.1 g/dL (12.0-15.0); Lymphocytes # (A) 0.49 X 10*3/uL (0.90-5.00); MCH 29.7 pg (27.0-32.0); MCHC 31.6 g/dL (32.0-37.0); MCV 93.9 fL (80.0-97.0); Mean Platelet Volume 12.6 fL (9.5-12.2); Monocytes # (A) 0.27 X 10*3/uL (0.20-1.00); Monocytes % (A) 2.2 %; Neutrophils # (A) 11.25 X 10*3/uL (1.80-7.70); Platelet Count 121 X 10*3/uL (140-440); RBC 4.41 X 10*6/uL (4.10-5.20); RDW 13.3 % (11.5-14.5); WBC 12.23 X 10*3/uL (4.50-10.00)
--- NOTE | 2021-03-20 14:47 | P.PN ---
Subjective Progress Note Date: 03/20/21 Patient is doing fairly well today. She denies any shortness of breath. He was on 15 L of oxygen via high flow nasal cannula and nonrebreather on top when I saw her this morning. I was able to take her off of the nonrebreather and her O2 sat remained around 92% with a 15 L high flow nasal cannula. No acute EVENTS overnight reported by nursing staff. Objective - Vital Signs Vital signs: Vital Signs Temp 98.1 F 03/20/21 10:00 Pulse 88 03/20/21 10:00 Resp 18 03/20/21 10:00 BP 144/78 03/20/21 10:00 Pulse Ox 88 L 03/20/21 10:00 Intake & Output 03/19/21 03/20/21 03/20/21 18:59 06:59 18:59 Output Total 3 Balance -3 Output: Urine 3 Other: Voiding Method Bedside Commode Bedside Commode # Voids 2 # Bowel Movements 2 - Exam General: The patient is awake and alert, in no distress Eye: there is normal conjunctiva bilaterally. Neck: The neck is supple, there is no JVD. Cardiovascular: Normal S1-S2, no S3-S4, no murmurs. Respiratory: Lungs clear to auscultation bilaterally Gastrointestinal: Abdomen is soft, nontender Musculoskeletal: There is no pedal edema. Neurological:. Speech is normal. Skin: Skin is warm and dry - Labs CBC & Chem 7: 03/20/21 06:08 03/20/21 06:08 Labs: Abnormal Lab Results - Last 24 Hours (Table) 03/19/21 03/20/21 03/20/21 Range/Units 07:34 06:08 06:08 WBC 12.23 H (4.50-10.00) X 10*3/uL MCHC 31.6 L (32.0-37.0) g/dL Plt Count 121 L (140-440) X 10*3/uL MPV 12.6 H (9.5-12.2) fL Immature Gran # 0.17 H (0.00-0.04) X 10*3/uL Neutrophils # 11.25 H (1.80-7.70) X 10*3/uL Lymphocytes # 0.49 L (0.90-5.00) X 10*3/uL Carbon Dioxide 13.8 L (21.6-31.8) mmol/L Anion Gap 22.20 H (4.00-12.00) mmol/L BUN 39.0 H 38.0 H (9.0-27.0) mg/dL Est GFR (CKD-EPI)NonAf 56.2 L 56.2 L (60.0-200.0) BUN/Creatinine Ratio 39.00 H 38.00 H (12.00-20.00) Ratio Glucose 165 H (70-110) mg/dL Calcium 8.6 L (8.7-10.3) mg/dL ALT 46 H (8-44) U/L Alkaline Phosphatase 136 H (41-126) U/L Lactate Dehydrogenase 635 H (120-246) U/L Total Protein 6.1 L (6.2-8.2) g/dL Assessment and Plan Assessment: COVID pneumonitis with acute hypoxic respiratory failure -Continue Solu-Medrol, Vit C, Vit D, Melatonin, on Lovenox -Continue on oxygen 15 L high flow patient is requiring a nonrebreather on top with ambulation -Pulmonary consult appreciated input. Solu-Medrol managed by pulm pulmonologyContinue current management, no major changes, ccm Lactic acidosis -On presentation now resolved Thrombocytopenia -Resolved Chronic conditions: COPD, hypertension, hyperlipidemia, hypothyroidism -Continue with home medications Essential hypertension: Continue home medications, increased Norvasc to 10 mg, and metoprolol to 25 twice a day, continue lisinopril 40, added HCTZ 25 mg daily, blood pressure better. DVT prophylaxis -Lovenox CODE STATUS: Full Code Discussed with: patient Anticipated discharge date: 3-[address]: Home versus rehab, pending clinical progression
--- NOTE | 2021-03-20 16:14 | P.PN ---
Subjective Progress Note Date: 03/20/21 Principal diagnosis: Acute hypoxic respiratory failure secondary to acute Covid 19 pneumonia This is a 70-year-old white female patient with past medical history of advanced COPD used to wear oxygen at one point, currently not on any home oxygen, former smoker, hep C treated with Harvoni, osteoarthritis, fibromyalgia, who came to the emergency department on 03/07/2021 for evaluation of cough, dyspnea, fatigue and myalgias, her symptoms have been present for approximately one week. Patient has no contact with coronavirus. In addition she has poor appetite, nausea, vomiting and diarrhea, she has anginal chest tightness without central chest pain. Chest x-ray shows diffuse moderate interstitial opacities in the left mid to lower lung and right lung base, no pleural effusion or pneumothorax. CTA chest shows bilateral opacities. Admission labs showed white blood cell, 4.5, hemoglobin 13, platelet count of 70, lymphocyte count of 0.14, d-dimer is 1.40, sodium is 137, potassium is 4.6, chloride is 103, CO2 is 18, BUN is 20, creatinine is 1.04. Plasma lactic acid is 2.7, ferritin level is 484, total bilirubin is 1.4, AST is 42, ALT is 23, alkaline phosphatase is 180, LDH is 710, CRP is 146.4, pro calcitonin level is 0.11, COVID 19 PCR. She is currently on 4 L of oxygen process between 92-95%, she is afebrile, still dyspneic, but no acute distress. Patient was started on Decadron, vitamins, and we'll start the patient on Remdesivir Patient was reevaluated today on 03/09/2021, patient remains on 6 L high flow nasal cannula, O2 sats is 91%. Patient tells me that she feels short of breath, no cough no wheezing no fever no chills. Her T-max yesterday was 99.6 today temperature is 98.3. Her WBC count is 5.4, basic metabolic profile is normal renal profile is normal LDH on admission was 710 and C-reactive protein was 146. D-dimer 1.40 platelets are 70,000. On 03/10/2001 patient seen in follow-up on medical surgical floor, today is Remdesivir date 3, FiO2 requirement is currently at 12 L, pulse ox is between 92-96%, still congested, coughing, lung sounds reveal diminished breath sounds with some crackles at the bases. No fever. Continues on Decadron 6 mg daily, vitamins, she is on Mucinex, he hasn't had a recent chest x-ray done for a coupl e of days, her last d-dimer was on 2020 and was at 1.4, no recent LDH a CRP. She states she would like a nebulizer treatment however in view of her quit positive status she cannot have a nebulizer we will order albuterol which she can have 4 times daily scheduled and as needed when necessary every 2 hours. In addition patient is on Symbicort. On 03/15/2021 patient seen in follow-up on medical surgical floor, she continues to require high flow oxygen per 15 L high flow and are present a nonrebreather mask, she states her dyspnea is not worsened. Still coughing, and at times she is able to bring up some phlegm, her pulse ox is 91-92%, for chest pain, she is able to bring up some phlegm at times, no new chest x-ray today, yesterday she received 640 mg Tocilizumab in view of worsening hypoxia, she also remains on IV Solu-Medrol. D-dimer was 1.79 yesterday's labs, d-dimer and LDH a CRP will be ordered for tomorrow. No complaints chest pain, no hemoptysis, no fever. On 03/18/2001 patient seen in follow-up on medical surgical floor, she states she has no worsening dyspnea, although still requiring high flow oxygen at 15 L and 100% nonrebreather mask, and she seems to be breathing comfortably at this time, patient is trying to eat a cookie at the time of my examination, she has a nonrebreather mask off, and on 15 L of oxygen her pulse ox is 73%, but she looks comfortable, in the 100% nonrebreather mask will be placed back on her when she is done eating. He is calm and cooperative, she is oriented 3, no cough, no chest pain. Last chest x-ray was yesterday showing continue bilateral reticulonodular opacities consistent with COVID infection on the background of c hronic parenchymal and emphysematous changes, with no significant change from most recent chest x-ray. Her labs today show white blood cell, 19.1, hemoglobin of 14.4, CO2 is 21, the rest of the electrolytes are within normal limits, B1 is 25, creatinine 0.74, no nausea vomiting or diarrhea, patient is tolerating oral intake. She status post Toci, and she remains on Solu-Medrol at 40 mg every 8 h ours and prophylactic dose of Lovenox. On 03/19/2031 patient seen in follow-up on medical surgical floor, she still remains on high flow nasal cannula at 15 L and 100% nonrebreather mask, she does desaturate into the low 70s when she removes nonrebreather mask however she does not become any more short of breath, seems to be breathing very comfortably, she is currently sitting up in the chair, she is frequently reminded not to remove the nonrebreather mask, she states that she still has occasional cough with production of creamy white phlegm, no hemoptysis, no chest pain, lung sounds reveal some scattered crackles, she is alert and oriented 3, appears to be breathing quite comfortably, no new chest x-ray today, his labs reveal white blood cell count of 17.8, d-dimer is 1.73, BMP is pending, will continue current medical treatment and patient is on prophylactic dose Lovenox, remains on IV Solu-Medrol 40 mg every 8 hours, Symbicort, vitamins, and inhalers On 03/20/2021 patient is seen in follow-up on medical surgical floor, she is currently just on 15 L high flow nasal cannula, very comfortable, she is resting comfortably in bed, denies any worsening dyspnea, she does desaturate with activity, but does recover, not requiring her percent nonrebreathing mask today, she remains on IV Solu-Medrol 40 mg every 8 hours, she is on Lovenox 40 mg daily, she is on inhalers, vitamins. Today's labs have been reviewed showing white count, 12.23, no new d-dimer, electrolytes are within normal limits, BUN of 38 creatinine is 1.0. No new chest x-ray, Objective - Vital Signs Vital signs: Vital Signs Temp 97.7 F 03/20/21 14:00 Pulse 84 03/20/21 14:00 Resp 16 03/20/21 14:00 BP 154/83 03/20/21 14:00 Pulse Ox 88 L 03/20/21 14:00 Intake & Output 03/19/21 03/20/21 03/20/21 18:59 06:59 18:59 Output Total 3 Balance -3 Output: Urine 3 Other: Voiding Method Bedside Commode Bedside Commode # Voids 2 # Bowel Movements 2 - Exam GENERAL EXAM: Alert, pleasant, 70-year-old white female patient currently on 15 L of oxygen and patient is satting at around 89% comfortable in no apparent distress. Not requiring nonrebreather mask HEAD: Normocephalic/atraumatic. EYES: Normal reaction of pupils, equal size. Conjunctiva pink, sclera white. NOSE: Clear with pink turbinates. THROAT: No erythema or exudates. NECK: No masses, no JVD, no thyroid enlargement, no adenopathy. CHEST: No chest wall deformity. Symmetrical expansion. LUNGS: Equal air entry with his crackles and rhonchi CVS: Regular rate and rhythm, normal S1 and S2, no gallops, no murmurs, no rubs ABDOMEN: Soft, nontender. No hepatosplenomegaly, normal bowel sounds, no guarding or rigidity. EXTREMITIES: No clubbing, no edema, no cyanosis, 2+ pulses and upper and lower extremities. MUSCULOSKELETAL: Muscle strength and tone normal. Patient has deformity of the right arm, with history of multiple previous surgeries, extensive bone and nerve damage SPINE: No scoliosis or deformity SKIN: No rashes CENTRAL NERVOUS SYSTEM: Alert and oriented -3. No focal deficits, tone is normal in all 4 extremities. PSYCHIATRIC: Alert and oriented -3. Appropriate affect. Intact judgment and insight. - Labs CBC & Chem 7: 03/20/21 06:08 03/20/21 06:08 Labs: Abnormal Lab Results - Last 24 Hours (Table) 03/19/21 03/20/21 03/20/21 Range/Units 07:34 06:08 06:08 WBC 12.23 H (4.50-10.00) X 10*3/uL MCHC 31.6 L (32.0-37.0) g/dL Plt Count 121 L (140-440) X 10*3/uL MPV 12.6 H (9.5-12.2) fL Immature Gran # 0.17 H (0.00-0.04) X 10*3/uL Neutrophils # 11.25 H (1.80-7.70) X 10*3/uL Lymphocytes # 0.49 L (0.90-5.00) X 10*3/uL Carbon Dioxide 13.8 L (21.6-31.8) mmol/L Anion Gap 22.20 H (4.00-12.00) mmol/L BUN 39.0 H 38.0 H (9.0-27.0) mg/dL Est GFR (CKD-EPI)NonAf 56.2 L 56.2 L (60.0-200.0) BUN/Creatinine Ratio 39.00 H 38.00 H (12.00-20.00) Ratio Glucose 165 H (70-110) mg/dL Calcium 8.6 L (8.7-10.3) mg/dL ALT 46 H (8-44) U/L Alkaline Phosphatase 136 H (41-126) U/L Lactate Dehydrogenase 635 H (120-246) U/L Total Protein 6.1 L (6.2-8.2) g/dL Assessment and Plan Plan: Assessment: #1. Acute hypoxic respiratory failure related to acute COVID 19 pneumonia, with onset of symptoms within 1 week of presentation, patient was started on Remdesivir on 03/08/2021 however her hypoxia had progressed and we stopped of Re mdesivir and gave Toci on 03/14/2021 #2. Advanced COPD, used to wear home oxygen in the past, but most recently has not required it, #3. Osteoarthritis #4. History of hepatitis C, treated with hormone #5. Former smoker #6. History of multiple surgeries involving her right wrist, with extensive joint and nerve damage. Patient was recommended to have right upper arm amputation however she opted against amputation #7. Fibromyalgia #8. Depression #9. Increased d-dimer without CT evidence of pulmonary embolism Plan: Patient is currently on 15 L high flow nasal cannula, and not requiring nonrebreather mask Maintaining O2 saturations between 88-90% if patient is asymptomatic and patient is breathing comfortably does not appear to be in any acute distress Continue same dose Solu-Medrol and Lovenox Continue inhalers Continue vitamins We'll continue to follow Sees to be improving on today's exam, the patient is down to 5 L all less on supplemental oxygen may consider discharge home I performed a history & physical examination of the patient and discussed their management with my nurse practitioner, Lucia Kinsey. I reviewed the nurse practitioner's note and agree with the documented findings and plan of care. Lung sounds are positive for diminished breath sounds with bilateral crackles. The findings and the impression was discussed with the patient. I attest to the documentation by the nurse practitioner. Time with Patient: Less than 30
[2021-03-20] MEDS: BENZONATATE 100 MG CAP PO PRN (22:04)
[2021-03-20] MEDS: traZODone HCL 100 MG TAB PO SCH (22:05)
[2021-03-20] MEDS: MELATONIN 5 MG TABLET PO PRN (22:05)
[2021-03-20] MEDS: risperiDONE 2 MG TAB PO SCH (22:07)
[2021-03-21] MEDS: methylPREDNISolone SOD SUCCI 40 MG/ML 1 ML VIAL IV SCH ×3 (00:59→15:50)
[2021-03-21] MEDS: LEVOTHYROXINE 50 MCG TAB PO SCH (05:52)
[2021-03-21] MEDS: ENOXAPARIN 40 MG/0.4 ML SYRINGE SQ SCH (07:51)
[2021-03-21] MEDS: BENZONATATE 100 MG CAP PO PRN ×2 (07:52→21:07)
[2021-03-21] MEDS: ATORVASTATIN 10 MG TAB PO SCH (07:52)
[2021-03-21] MEDS: hydroCHLOROthiazide 25 MG TAB PO SCH (07:52)
[2021-03-21] MEDS: amLODIPine 10 MG TAB PO SCH (07:52)
[2021-03-21] MEDS: lisinopriL 20 MG TAB PO SCH (07:52)
[2021-03-21] MEDS: oxyCODONE-APAP 7.5-325MG 1 EACH TAB PO PRN ×2 (07:52→21:08)
[2021-03-21] MEDS: GABAPENTIN 400 MG CAP PO SCH ×3 (07:52→21:07)
[2021-03-21] MEDS: RALOXIFENE 60 MG TAB PO SCH (07:53)
[2021-03-21] MEDS: busPIRone HCl 10 MG TAB PO SCH ×2 (07:53→21:07)
[2021-03-21] MEDS: PANTOPRAZOLE 40 MG TABLET PO SCH (07:53)
[2021-03-21] MEDS: ASCORBIC ACID 500 MG TAB PO SCH (07:53)
[2021-03-21] MEDS: METOPROLOL TARTRATE 25 MG TAB PO SCH ×2 (07:53→21:07)
[2021-03-21] MEDS: CALCIUM CARBONATE 500 MG CHEWABLE PO SCH (07:53)
[2021-03-21] MEDS: SERTRALINE 100 MG TAB PO SCH (07:53)
[2021-03-21] MEDS: DOCUSATE 100 MG CAP PO SCH ×2 (07:53→21:07)
[2021-03-21] MEDS: SYMBICORT 160-4.5 MCG INHALER INHALATION SCH ×2 (09:58→20:48)
[2021-03-21] MEDS: ALBUTEROL HFA INHALER INHALATION SCH ×4 (09:58→20:46)
--- NOTE | 2021-03-21 14:22 | P.PN ---
Subjective Progress Note Date: 03/21/21 Patient is doing well today. She denies any shortness of breath. She was maintained on 15 L high flow nasal cannula when I saw her and O2 sats was around 95%. I talked her oxygen gradually to 10 L and patient maintained O2 sat greater than 90%. She denies any shortness of breath. Objective - Vital Signs Vital signs: Vital Signs Temp 98.2 F 03/21/21 13:59 Pulse 88 03/21/21 13:59 Resp 18 03/21/21 13:59 BP 126/78 03/21/21 13:59 Pulse Ox 90 L 03/21/21 13:59 Intake & Output 03/20/21 03/21/21 03/21/21 18:59 06:59 18:59 Intake Total 1999 Balance 1999 Intake: Oral 1999 Other: Voiding Method Bedside Commode Bedside Commode Bedside Commode # Voids 3 - Exam General: The patient is awake and alert, in no distress Eye: there is normal conjunctiva bilaterally. Neck: The neck is supple, there is no JVD. Cardiovascular: Normal S1-S2, no S3-S4, no murmurs. Respiratory: Lungs clear to auscultation bilaterally Gastrointestinal: Abdomen is soft, nontender Musculoskeletal: There is no pedal edema. Neurological:. Speech is normal. Skin: Skin is warm and dry - Labs CBC & Chem 7: 03/20/21 06:08 03/20/21 06:08 Assessment and Plan Assessment: COVID pneumonitis with acute hypoxic respiratory failure -Continue Solu-Medrol, Vit C, Vit D, Melatonin, on Lovenox -Continue on oxygen 10 L high flow -Pulmonary consult appreciated input. Solu-Medrol managed by pulm pulmonologyContinue current management, no major changes, [facility] Lactic acidosis -On presentation now resolved Thrombocytopenia -Resolved Chronic conditions: COPD, hypertension, hyperlipidemia, hypothyroidism -Continue with home medications Essential hypertension: Continue home medications, increased Norvasc to 10 mg, and metoprolol to 25 twice a day, continue lisinopril 40, added HCTZ 25 mg daily, blood pressure better. DVT prophylaxis -Lovenox CODE STATUS: Full Code Discussed with: patient Anticipated discharge date: 3-[address]: Home versus rehab, pending clinical progression
--- NOTE | 2021-03-21 15:48 | P.PN ---
Subjective Progress Note Date: 03/21/21 Principal diagnosis: Acute hypoxic respiratory failure secondary to acute Covid 19 pneumonia This is a 70-year-old white female patient with past medical history of advanced COPD used to wear oxygen at one point, currently not on any home oxygen, former smoker, hep C treated with Harvoni, osteoarthritis, fibromyalgia, who came to the emergency department on 03/07/2021 for evaluation of cough, dyspnea, fatigue and myalgias, her symptoms have been present for approximately one week. Patient has no contact with coronavirus. In addition she has poor appetite, nausea, vomiting and diarrhea, she has anginal chest tightness without central chest pain. Chest x-ray shows diffuse moderate interstitial opacities in the left mid to lower lung and right lung base, no pleural effusion or pneumothorax. CTA chest shows bilateral opacities. Admission labs showed white blood cell, 4.5, hemoglobin 13, platelet count of 70, lymphocyte count of 0.14, d-dimer is 1.40, sodium is 137, potassium is 4.6, chloride is 103, CO2 is 18, BUN is 20, creatinine is 1.04. Plasma lactic acid is 2.7, ferritin level is 484, total bilirubin is 1.4, AST is 42, ALT is 23, alkaline phosphatase is 180, LDH is 710, CRP is 146.4, pro calcitonin level is 0.11, COVID 19 PCR. She is currently on 4 L of oxygen process between 92-95%, she is afebrile, still dyspneic, but no acute distress. Patient was started on Decadron, vitamins, and we'll start the patient on Remdesivir Patient was reevaluated today on 03/09/2021, patient remains on 6 L high flow nasal cannula, O2 sats is 91%. Patient tells me that she feels short of breath, no cough no wheezing no fever no chills. Her T-max yesterday was 99.6 today temperature is 98.3. Her WBC count is 5.4, basic metabolic profile is normal renal profile is normal LDH on admission was 710 and C-reactive protein was 146. D-dimer 1.40 platelets are 70,000. On 03/10/2001 patient seen in follow-up on medical surgical floor, today is Remdesivir date 3, FiO2 requirement is currently at 12 L, pulse ox is between 92-96%, still congested, coughing, lung sounds reveal diminished breath sounds with some crackles at the bases. No fever. Continues on Decadron 6 mg daily, vitamins, she is on Mucinex, he hasn't had a recent chest x-ray done for a coupl e of days, her last d-dimer was on 2020 and was at 1.4, no recent LDH a CRP. She states she would like a nebulizer treatment however in view of her quit positive status she cannot have a nebulizer we will order albuterol which she can have 4 times daily scheduled and as needed when necessary every 2 hours. In addition patient is on Symbicort. On 03/15/2021 patient seen in follow-up on medical surgical floor, she continues to require high flow oxygen per 15 L high flow and are present a nonrebreather mask, she states her dyspnea is not worsened. Still coughing, and at times she is able to bring up some phlegm, her pulse ox is 91-92%, for chest pain, she is able to bring up some phlegm at times, no new chest x-ray today, yesterday she received 640 mg Tocilizumab in view of worsening hypoxia, she also remains on IV Solu-Medrol. D-dimer was 1.79 yesterday's labs, d-dimer and LDH a CRP will be ordered for tomorrow. No complaints chest pain, no hemoptysis, no fever. On 03/18/2001 patient seen in follow-up on medical surgical floor, she states she has no worsening dyspnea, although still requiring high flow oxygen at 15 L and 100% nonrebreather mask, and she seems to be breathing comfortably at this time, patient is trying to eat a cookie at the time of my examination, she has a nonrebreather mask off, and on 15 L of oxygen her pulse ox is 73%, but she looks comfortable, in the 100% nonrebreather mask will be placed back on her when she is done eating. He is calm and cooperative, she is oriented 3, no cough, no chest pain. Last chest x-ray was yesterday showing continue bilateral reticulonodular opacities consistent with COVID infection on the background of c hronic parenchymal and emphysematous changes, with no significant change from most recent chest x-ray. Her labs today show white blood cell, 19.1, hemoglobin of 14.4, CO2 is 21, the rest of the electrolytes are within normal limits, B1 is 25, creatinine 0.74, no nausea vomiting or diarrhea, patient is tolerating oral intake. She status post Toci, and she remains on Solu-Medrol at 40 mg every 8 h ours and prophylactic dose of Lovenox. On 03/19/2031 patient seen in follow-up on medical surgical floor, she still remains on high flow nasal cannula at 15 L and 100% nonrebreather mask, she does desaturate into the low 70s when she removes nonrebreather mask however she does not become any more short of breath, seems to be breathing very comfortably, she is currently sitting up in the chair, she is frequently reminded not to remove the nonrebreather mask, she states that she still has occasional cough with production of creamy white phlegm, no hemoptysis, no chest pain, lung sounds reveal some scattered crackles, she is alert and oriented 3, appears to be breathing quite comfortably, no new chest x-ray today, his labs reveal white blood cell count of 17.8, d-dimer is 1.73, BMP is pending, will continue current medical treatment and patient is on prophylactic dose Lovenox, remains on IV Solu-Medrol 40 mg every 8 hours, Symbicort, vitamins, and inhalers On 03/20/2021 patient is seen in follow-up on medical surgical floor, she is currently just on 15 L high flow nasal cannula, very comfortable, she is resting comfortably in bed, denies any worsening dyspnea, she does desaturate with activity, but does recover, not requiring her percent nonrebreathing mask today, she remains on IV Solu-Medrol 40 mg every 8 hours, she is on Lovenox 40 mg daily, she is on inhalers, vitamins. Today's labs have been reviewed showing white count, 12.23, no new d-dimer, electrolytes are within normal limits, BUN of 38 creatinine is 1.0. No new chest x-ray, On 03/21/2021 patient seen in follow-up on medical surgical floor, she is resting comfortably, she is currently off the nonrebreather mask, her pulse ox on 10 L per high flow nasal cannula is 90%, vital signs have been stable, no fever or chills, no worsening dyspnea, occasional congested cough, no sputum production, no chest discomfort. No nausea vomiting or diarrhea, patient continues on IV Solu-Medrol, 40 mg every 8 hours, prophylactic dose of Lovenox. No new labs today, no new chest x-ray, clinically improving Objective - Vital Signs Vital signs: Vital Signs Temp 98.2 F 03/21/21 13:59 Pulse 88 03/21/21 13:59 Resp 18 03/21/21 13:59 BP 126/78 03/21/21 13:59 Pulse Ox 90 L 03/21/21 13:59 Intake & Output 03/20/21 03/21/21 03/21/21 18:59 06:59 18:59 Intake Total 1999 Balance 1999 Intake: Oral 1999 Other: Voiding Method Bedside Commode Bedside Commode Bedside Commode # Voids 3 - Exam GENERAL EXAM: Alert, pleasant, 70-year-old white female patient currently on 15 L of oxygen and patient is satting at around 94% comfortable in no apparent distress. Not requiring nonrebreather mask HEAD: Normocephalic/atraumatic. EYES: Normal reaction of pupils, equal size. Conjunctiva pink, sclera white. NOSE: Clear with pink turbinates. THROAT: No erythema or exudates. NECK: No masses, no JVD, no thyroid enlargement, no adenopathy. CHEST: No chest wall deformity. Symmetrical expansion. LUNGS: Equal air entry with his crackles and rhonchi CVS: Regular rate and rhythm, normal S1 and S2, no gallops, no murmurs, no rubs ABDOMEN: Soft, nontender. No hepatosplenomegaly, normal bowel sounds, no guarding or rigidity. EXTREMITIES: No clubbing, no edema, no cyanosis, 2+ pulses and upper and lower extremities. MUSCULOSKELETAL: Muscle strength and tone normal. Patient has deformity of the right arm, with history of multiple previous surgeries, extensive bone and nerve damage SPINE: No scoliosis or deformity SKIN: No rashes CENTRAL NERVOUS SYSTEM: Alert and oriented -3. No focal deficits, tone is normal in all 4 extremities. PSYCHIATRIC: Alert and oriented -3. Appropriate affect. Intact judgment and insight. - Labs CBC & Chem 7: 03/20/21 06:08 03/20/21 06:08 Assessment and Plan Plan: Assessment: #1. Acute hypoxic respiratory failure related to acute COVID 19 pneumonia, with onset of symptoms within 1 week of presentation, patient was started on Remdesivir on 03/08/2021 however her hypoxia had progressed and we stopped of Remdesivir and gave Toci on 03/14/2021 #2. Advanced COPD, used to wear home oxygen in the past, but most recently has not required it #3. Osteoarthritis #4. History of hepatitis C, treated with hormone #5. Former smoker #6. History of multiple surgeries involving her right wrist, with extensive joint and nerve damage. Patient was recommended to have right upper arm amputation however she opted against amputation #7. Fibromyalgia #8. Depression #9. Increased d-dimer without CT evidence of pulmonary embolism Plan: Patient is currently on 10 L high flow nasal cannula, and not requiring nonrebreather mask Maintaining O2 saturations between 88-90% if patient is asymptomatic and patient is breathing comfortably does not appear to be in any acute distress Continue same dose Solu-Medrol and Lovenox Continue inhalers Continue vitamins Once the patient is down to 5 L all less on supplemental oxygen may consider discharge home or subacute rehab I performed a history & physical examination of the patient and discussed their management with my nurse practitioner, Lucia Kinsey. I reviewed the nurse practitioner's note and agree with the documented findings and plan of care. Lung sounds are positive for diminished breath sounds with bilateral crackles. The findings and the impression was discussed with the patient. I attest to the documentation by the nurse practitioner. Time with Patient: Less than 30
[2021-03-21] MEDS: risperiDONE 2 MG TAB PO SCH (21:07)
[2021-03-21] MEDS: MELATONIN 5 MG TABLET PO PRN (21:07)
[2021-03-21] MEDS: traZODone HCL 100 MG TAB PO SCH (21:07)
[2021-03-22] MEDS: methylPREDNISolone SOD SUCCI 40 MG/ML 1 ML VIAL IV SCH ×2 (00:29→08:56)
[2021-03-22] MEDS: LEVOTHYROXINE 50 MCG TAB PO SCH (05:51)
[2021-03-22] MEDS: GABAPENTIN 400 MG CAP PO SCH ×3 (08:48→20:13)
[2021-03-22] MEDS: ENOXAPARIN 40 MG/0.4 ML SYRINGE SQ SCH (08:48)
[2021-03-22] MEDS: hydroCHLOROthiazide 25 MG TAB PO SCH (08:48)
[2021-03-22] MEDS: lisinopriL 20 MG TAB PO SCH (08:49)
[2021-03-22] MEDS: CALCIUM CARBONATE 500 MG CHEWABLE PO SCH (08:49)
[2021-03-22] MEDS: busPIRone HCl 10 MG TAB PO SCH ×2 (08:49→20:12)
[2021-03-22] MEDS: DOCUSATE 100 MG CAP PO SCH ×2 (08:49→20:13)
[2021-03-22] MEDS: PANTOPRAZOLE 40 MG TABLET PO SCH (08:49)
[2021-03-22] MEDS: amLODIPine 10 MG TAB PO SCH (08:49)
[2021-03-22] MEDS: oxyCODONE-APAP 7.5-325MG 1 EACH TAB PO PRN ×2 (08:49→20:14)
[2021-03-22] MEDS: ASCORBIC ACID 500 MG TAB PO SCH (08:50)
[2021-03-22] MEDS: SERTRALINE 100 MG TAB PO SCH (08:50)
[2021-03-22] MEDS: METOPROLOL TARTRATE 25 MG TAB PO SCH ×2 (08:50→20:12)
[2021-03-22] MEDS: RALOXIFENE 60 MG TAB PO SCH (08:50)
[2021-03-22] MEDS: BENZONATATE 100 MG CAP PO PRN (08:50)
[2021-03-22] MEDS: ATORVASTATIN 10 MG TAB PO SCH (08:55)
[2021-03-22] MEDS: ALBUTEROL HFA INHALER INHALATION SCH ×4 (09:25→20:24)
[2021-03-22] MEDS: SYMBICORT 160-4.5 MCG INHALER INHALATION SCH ×2 (09:25→20:24)
[2021-03-22 09:30] LABS: African American GFR (CKD) 80 (>60 ml/min/1.73 sqM); Anion Gap 9 mmol/L; Blood Urea Nitrogen 46 mg/dL (7-17); Carbon Dioxide 24 mmol/L (22-30); Chloride 104 mmol/L (98-107); Glucose 147 mg/dL (74-99); Non-African American GFR(CKD) 69 (>60 ml/min/1.73 sqM); Potassium 4.3 mmol/L (3.5-5.1); Sodium 137 mmol/L (137-145)
[2021-03-22 11:07] LABS: Basophils % (A) 0 %; Eosinophils # (A) 0.1 k/uL (0-0.7); Eosinophils % (A) 1 %; HCT 40.4 % (34.0-46.0); HGB 12.8 gm/dL (11.4-16.0); Lymphocytes # (A) 0.7 k/uL (1.0-4.8); Lymphocytes % (A) 6 %; MCH 29.6 pg (25.0-35.0); MCHC 31.8 g/dL (31.0-37.0); Mean Platelet Volume 11.8; Monocytes # (A) 0.3 k/uL (0-1.0); Monocytes % (A) 3 %; Neutrophils # (A) 10.1 k/uL (1.3-7.7); Neutrophils % (A) 90 %; RBC 4.34 m/uL (3.80-5.40); RDW 13.8 % (11.5-15.5); WBC 11.3 k/uL (3.8-10.6)
[2021-03-22 11:09] LABS: Platelet Count 124 k/uL (150-450)
--- NOTE | 2021-03-22 14:00 | P.PN ---
Subjective Progress Note Date: 03/22/21 Patient is doing fairly well this morning. She was complaining of some shortness of breath this morning and for unclear reason she was placed on a nonrebreather despite no documentation of worsening hypoxia on 10 L of oxygen via high flow nasal cannula. Patient was satting around 92% on high flow nasal cannula 10 L yesterday when I saw her and again this morning I removed her nonrebreather and she still satting 92% on 10 L of high flow nasal cannula. I advised the staff to avoid over supplementing oxygen is not indicated by O2 sat duration less than 90%. Objective - Vital Signs Vital signs: Vital Signs Temp 97.5 F L 03/22/21 10:00 Pulse 78 03/22/21 10:00 Resp 16 03/22/21 10:00 BP 134/76 03/22/21 10:00 Pulse Ox 92 L 03/22/21 10:00 Intake & Output 03/21/21 03/22/21 03/22/21 18:59 06:59 18:59 Other: Voiding Method Bedside Commode Bedside Commode # Voids 4 2 - Exam General: The patient is awake and alert, in no distress Eye: there is normal conjunctiva bilaterally. Neck: The neck is supple, there is no JVD. Cardiovascular: Normal S1-S2, no S3-S4, no murmurs. Respiratory: Lungs clear to auscultation bilaterally Gastrointestinal: Abdomen is soft, nontender Musculoskeletal: There is no pedal edema. Neurological:. Speech is normal. Skin: Skin is warm and dry - Labs CBC & Chem 7: 03/22/21 08:16 03/22/21 08:16 Labs: Abnormal Lab Results - Last 24 Hours (Table) 03/22/21 03/22/21 Range/Units 08:16 08:16 WBC 11.3 H (3.8-10.6) k/uL Plt Count 124 L D (150-450) k/uL Neutrophils # 10.1 H (1.3-7.7) k/uL Lymphocytes # 0.7 L (1.0-4.8) k/uL BUN 46 H (7-17) mg/dL Glucose 147 H (74-99) mg/dL Assessment and Plan Assessment: COVID pneumonitis with acute hypoxic respiratory failure -Continue Solu-Medrol, Vit C, Vit D, Melatonin, on Lovenox -Continue on oxygen 10 L high flow -Pulmonary consult appreciated input. Solu-Medrol managed by pulm. Patient has been on IV Solu-Medrol 40 mg every 8 hours for the past 7 days. I will switch her to oral prednisone 60 mg daily starting tomorrow with plan for slow taper course pulmonologyContinue current management, no major changes, ccm Lactic acidosis -On presentation now resolved Thrombocytopenia -Resolved Chronic conditions: COPD, hypertension, hyperlipidemia, hypothyroidism -Continue with home medications Essential hypertension: Continue home medications, increased Norvasc to 10 mg, and metoprolol to 25 twice a day, continue lisinopril 40, added HCTZ 25 mg daily, blood pressure better. DVT prophylaxis -Lovenox CODE STATUS: Full Code Discussed with: patient Anticipated discharge date: 3-[address]: Home versus rehab, pending clinical progression
[2021-03-22] MEDS: guaiFENesin 600 MG TABLET.ER PO PRN (15:55)
--- NOTE | 2021-03-22 16:30 | P.PN ---
Subjective Progress Note Date: 03/22/21 Principal diagnosis: Acute hypoxic respiratory failure secondary to acute Covid 19 pneumonia This is a 70-year-old white female patient with past medical history of advanced COPD used to wear oxygen at one point, currently not on any home oxygen, former smoker, hep C treated with Harvoni, osteoarthritis, fibromyalgia, who came to the emergency department on 03/07/2021 for evaluation of cough, dyspnea, fatigue and myalgias, her symptoms have been present for approximately one week. Patient has no contact with coronavirus. In addition she has poor appetite, nausea, vomiting and diarrhea, she has anginal chest tightness without central chest pain. Chest x-ray shows diffuse moderate interstitial opacities in the left mid to lower lung and right lung base, no pleural effusion or pneumothorax. CTA chest shows bilateral opacities. Admission labs showed white blood cell, 4.5, hemoglobin 13, platelet count of 70, lymphocyte count of 0.14, d-dimer is 1.40, sodium is 137, potassium is 4.6, chloride is 103, CO2 is 18, BUN is 20, creatinine is 1.04. Plasma lactic acid is 2.7, ferritin level is 484, total bilirubin is 1.4, AST is 42, ALT is 23, alkaline phosphatase is 180, LDH is 710, CRP is 146.4, pro calcitonin level is 0.11, COVID 19 PCR. She is currently on 4 L of oxygen process between 92-95%, she is afebrile, still dyspneic, but no acute distress. Patient was started on Decadron, vitamins, and we'll start the patient on Remdesivir Patient was reevaluated today on 03/09/2021, patient remains on 6 L high flow nasal cannula, O2 sats is 91%. Patient tells me that she feels short of breath, no cough no wheezing no fever no chills. Her T-max yesterday was 99.6 today temperature is 98.3. Her WBC count is 5.4, basic metabolic profile is normal renal profile is normal LDH on admission was 710 and C-reactive protein was 146. D-dimer 1.40 platelets are 70,000. On 03/10/2001 patient seen in follow-up on medical surgical floor, today is Remdesivir date 3, FiO2 requirement is currently at 12 L, pulse ox is between 92-96%, still congested, coughing, lung sounds reveal diminished breath sounds with some crackles at the bases. No fever. Continues on Decadron 6 mg daily, vitamins, she is on Mucinex, he hasn't had a recent chest x-ray done for a coupl e of days, her last d-dimer was on 2020 and was at 1.4, no recent LDH a CRP. She states she would like a nebulizer treatment however in view of her quit positive status she cannot have a nebulizer we will order albuterol which she can have 4 times daily scheduled and as needed when necessary every 2 hours. In addition patient is on Symbicort. On 03/15/2021 patient seen in follow-up on medical surgical floor, she continues to require high flow oxygen per 15 L high flow and are present a nonrebreather mask, she states her dyspnea is not worsened. Still coughing, and at times she is able to bring up some phlegm, her pulse ox is 91-92%, for chest pain, she is able to bring up some phlegm at times, no new chest x-ray today, yesterday she received 640 mg Tocilizumab in view of worsening hypoxia, she also remains on IV Solu-Medrol. D-dimer was 1.79 yesterday's labs, d-dimer and LDH a CRP will be ordered for tomorrow. No complaints chest pain, no hemoptysis, no fever. On 03/18/2001 patient seen in follow-up on medical surgical floor, she states she has no worsening dyspnea, although still requiring high flow oxygen at 15 L and 100% nonrebreather mask, and she seems to be breathing comfortably at this time, patient is trying to eat a cookie at the time of my examination, she has a nonrebreather mask off, and on 15 L of oxygen her pulse ox is 73%, but she looks comfortable, in the 100% nonrebreather mask will be placed back on her when she is done eating. He is calm and cooperative, she is oriented 3, no cough, no chest pain. Last chest x-ray was yesterday showing continue bilateral reticulonodular opacities consistent with COVID infection on the background of c hronic parenchymal and emphysematous changes, with no significant change from most recent chest x-ray. Her labs today show white blood cell, 19.1, hemoglobin of 14.4, CO2 is 21, the rest of the electrolytes are within normal limits, B1 is 25, creatinine 0.74, no nausea vomiting or diarrhea, patient is tolerating oral intake. She status post Toci, and she remains on Solu-Medrol at 40 mg every 8 h ours and prophylactic dose of Lovenox. On 03/19/2031 patient seen in follow-up on medical surgical floor, she still remains on high flow nasal cannula at 15 L and 100% nonrebreather mask, she does desaturate into the low 70s when she removes nonrebreather mask however she does not become any more short of breath, seems to be breathing very comfortably, she is currently sitting up in the chair, she is frequently reminded not to remove the nonrebreather mask, she states that she still has occasional cough with production of creamy white phlegm, no hemoptysis, no chest pain, lung sounds reveal some scattered crackles, she is alert and oriented 3, appears to be breathing quite comfortably, no new chest x-ray today, his labs reveal white blood cell count of 17.8, d-dimer is 1.73, BMP is pending, will continue current medical treatment and patient is on prophylactic dose Lovenox, remains on IV Solu-Medrol 40 mg every 8 hours, Symbicort, vitamins, and inhalers On 03/20/2021 patient is seen in follow-up on medical surgical floor, she is currently just on 15 L high flow nasal cannula, very comfortable, she is resting comfortably in bed, denies any worsening dyspnea, she does desaturate with activity, but does recover, not requiring her percent nonrebreathing mask today, she remains on IV Solu-Medrol 40 mg every 8 hours, she is on Lovenox 40 mg daily, she is on inhalers, vitamins. Today's labs have been reviewed showing white count, 12.23, no new d-dimer, electrolytes are within normal limits, BUN of 38 creatinine is 1.0. No new chest x-ray, On 03/21/2021 patient seen in follow-up on medical surgical floor, she is resting comfortably, she is currently off the nonrebreather mask, her pulse ox on 10 L per high flow nasal cannula is 90%, vital signs have been stable, no fever or chills, no worsening dyspnea, occasional congested cough, no sputum production, no chest discomfort. No nausea vomiting or diarrhea, patient continues on IV Solu-Medrol, 40 mg every 8 hours, prophylactic dose of Lovenox. No new labs today, no new chest x-ray, clinically improving On 03/22/2021 patient seen in follow-up on medical surgical floor, today she is on 10 L of oxygen her pulse ox is 92%, she still has a congested cough, and she states her chest hurts with coughing, and feels achy. Otherwise no worsening dyspnea. Sounds positive for diffuse crackles and wheezing, IV Solu-Medrol has been switched to oral prednisone, she is on Mucinex, she is on Lovenox prophylactic dose, we will obtain follow-up chest x-ray tomorrow, she's had no nausea vomiting or diarrhea. Objective - Vital Signs Vital signs: Vital Signs Temp 98.4 F 03/22/21 14:00 Pulse 83 03/22/21 14:00 Resp 18 03/22/21 14:00 BP 123/75 03/22/21 14:00 Pulse Ox 92 L 03/22/21 14:00 Intake & Output 03/21/21 03/22/21 03/22/21 18:59 06:59 18:59 Other: Voiding Method Bedside Commode Bedside Commode # Voids 4 2 3 - Exam GENERAL EXAM: Alert, pleasant, 70-year-old white female patient currently on 10 L of oxygen and patient is satting at around 92% comfortable in no apparent distress. Not requiring nonrebreather mask HEAD: Normocephalic/atraumatic. EYES: Normal reaction of pupils, equal size. Conjunctiva pink, sclera white. NOSE: Clear with pink turbinates. THROAT: No erythema or exudates. NECK: No masses, no JVD, no thyroid enlargement, no adenopathy. CHEST: No chest wall deformity. Symmetrical expansion. LUNGS: Equal air entry with his crackles and rhonchi CVS: Regular rate and rhythm, normal S1 and S2, no gallops, no murmurs, no rubs ABDOMEN: Soft, nontender. No hepatosplenomegaly, normal bowel sounds, no guarding or rigidity. EXTREMITIES: No clubbing, no edema, no cyanosis, 2+ pulses and upper and lower extremities. MUSCULOSKELETAL: Muscle strength and tone normal. Patient has deformity of the right arm, with history of multiple previous surgeries, extensive bone and nerve damage SPINE: No scoliosis or deformity SKIN: No rashes CENTRAL NERVOUS SYSTEM: Alert and oriented -3. No focal deficits, tone is normal in all 4 extremities. PSYCHIATRIC: Alert and oriented -3. Appropriate affect. Intact judgment and insight. - Labs CBC & Chem 7: 03/22/21 08:16 03/22/21 08:16 Labs: Abnormal Lab Results - Last 24 Hours (Table) 03/22/21 03/22/21 Range/Units 08:16 08:16 WBC 11.3 H (3.8-10.6) k/uL Plt Count 124 L D (150-450) k/uL Neutrophils # 10.1 H (1.3-7.7) k/uL Lymphocytes # 0.7 L (1.0-4.8) k/uL BUN 46 H (7-17) mg/dL Glucose 147 H (74-99) mg/dL Assessment and Plan Plan: Assessment: #1. Acute hypoxic respiratory failure related to acute COVID 19 pneumonia, with onset of symptoms within 1 week of presentation, patient was started on Remdesivir on 03/08/2021 however her hypoxia had progressed and we stopped of Remdesivir and gave Toci on 03/14/2021 #2. Advanced COPD, used to wear home oxygen in the past, but most recently has not required it #3. Osteoarthritis #4. History of hepatitis C, treated with hormone #5. Former smoker #6. History of multiple surgeries involving her right wrist, with extensive joint and nerve damage. Patient was recommended to have right upper arm amputation however she opted against amputation #7. Fibromyalgia #8. Depression #9. Increased d-dimer without CT evidence of pulmonary embolism Plan: Continue weaning FiO2 to maintain O2 saturation between 89-90% if the patient is comfortable Continue oral prednisone, Continue current dose Lovenox Continue inhalers Continue vitamins Once the patient is down to 5 L all less on supplemental oxygen may consider discharge home or subacute rehab follow-up chest x-ray tomorrow I performed a history & physical examination of the patient and discussed their management with my nurse practitioner, Lucia Kinsey. I reviewed the nurse practitioner's note and agree with the documented findings and plan of care. Lung sounds are positive for diminished breath sounds with bilateral crackles. The findings and the impression was discussed with the patient. I attest to the documentation by the nurse practitioner. Time with Patient: Less than 30
[2021-03-22] MEDS: traZODone HCL 100 MG TAB PO SCH (20:13)
[2021-03-22] MEDS: risperiDONE 2 MG TAB PO SCH (20:13)
[2021-03-23] MEDS: LEVOTHYROXINE 50 MCG TAB PO SCH (05:44)
[2021-03-23] MEDS: ENOXAPARIN 40 MG/0.4 ML SYRINGE SQ SCH (07:59)
[2021-03-23] MEDS: hydroCHLOROthiazide 25 MG TAB PO SCH (08:00)
[2021-03-23] MEDS: guaiFENesin 600 MG TABLET.ER PO PRN (08:00)
[2021-03-23] MEDS: CALCIUM CARBONATE 500 MG CHEWABLE PO SCH (08:00)
[2021-03-23] MEDS: amLODIPine 10 MG TAB PO SCH (08:00)
[2021-03-23] MEDS: SERTRALINE 100 MG TAB PO SCH (08:00)
[2021-03-23] MEDS: ASCORBIC ACID 500 MG TAB PO SCH (08:00)
[2021-03-23] MEDS: oxyCODONE-APAP 7.5-325MG 1 EACH TAB PO PRN ×2 (08:00→20:40)
[2021-03-23] MEDS: RALOXIFENE 60 MG TAB PO SCH (08:00)
[2021-03-23] MEDS: lisinopriL 20 MG TAB PO SCH (08:01)
[2021-03-23] MEDS: busPIRone HCl 10 MG TAB PO SCH ×2 (08:01→20:41)
[2021-03-23] MEDS: ATORVASTATIN 10 MG TAB PO SCH (08:01)
[2021-03-23] MEDS: GABAPENTIN 400 MG CAP PO SCH ×3 (08:01→20:41)
[2021-03-23] MEDS: METOPROLOL TARTRATE 25 MG TAB PO SCH ×2 (08:01→20:40)
[2021-03-23] MEDS: predniSONE 20 MG TAB PO SCH (08:01)
[2021-03-23] MEDS: PANTOPRAZOLE 40 MG TABLET PO SCH (08:01)
[2021-03-23] MEDS: DOCUSATE 100 MG CAP PO SCH ×2 (08:03→20:41)
[2021-03-23] MEDS: ALBUTEROL HFA INHALER INHALATION SCH ×4 (08:40→19:13)
[2021-03-23] MEDS: SYMBICORT 160-4.5 MCG INHALER INHALATION SCH ×2 (08:40→19:13)
--- NOTE | 2021-03-23 13:41 | XR ---
EXAMINATION TYPE: XR chest 1V portable DATE OF EXAM: 03/23/2021 COMPARISON: Chest x-ray 03/17/2021 HISTORY: Covid infection, abnormal chest x-ray TECHNIQUE: Single frontal view of the chest is obtained. FINDINGS: Findings are similar to prior exam. IMPRESSION: Correlate for Covid pneumonia.
[2021-03-23] MEDS ORDERED: guaiFENesin 600 MG TABLET.ER PO PRN (14:25)
[2021-03-23] MEDS ORDERED: IBUPROFEN 800 MG TAB PO STA (14:29)
--- NOTE | 2021-03-23 14:32 | P.PN ---
Subjective Progress Note Date: 03/23/21 Patient was sitting in the chair today. Her oxygen requirement has been fluctuating between 10 and 15 L of high flow nasal cannula. Patient denies any shortness of breath. She is complaining of chest discomfort mostly at the level of her midsternal that is worse with pressing on her chest wall. Objective - Vital Signs Vital signs: Vital Signs Temp 97.4 F L 03/23/21 09:55 Pulse 86 03/23/21 09:55 Resp 18 03/23/21 09:55 BP 104/67 03/23/21 09:55 Pulse Ox 89 L 03/23/21 09:59 Intake & Output 03/22/21 03/23/21 03/23/21 18:59 06:59 18:59 Other: Voiding Method Bedside Commode # Voids 3 3 # Bowel Movements 1 - Exam General: The patient is awake and alert, in no distress Eye: there is normal conjunctiva bilaterally. Neck: The neck is supple, there is no JVD. Cardiovascular: Normal S1-S2, no S3-S4, no murmurs. Respiratory: Lungs clear to auscultation bilaterally Gastrointestinal: Abdomen is soft, nontender Musculoskeletal: There is no pedal edema. Neurological:. Speech is normal. Skin: Skin is warm and dry - Labs CBC & Chem 7: 03/22/21 08:16 03/22/21 08:16 Assessment and Plan Assessment: COVID pneumonitis with acute hypoxic respiratory failure -Continue Vit C, Vit D, Melatonin, on Lovenox -Continue on oxygen 10 L high flow , wean off as tolerated -Pulmonary consult appreciated input. Patient received IV Solu-Medrol 40 mg every 8 hours for one week then transitioned to oral prednisone 60 mg daily with a plan for slow taper course -Incentive spirometer at bedside and I instructed nursing staff to assist the patient do incentive spirometer every hour -Repeat chest x-ray today showed no significant changes Lactic acidosis -On presentation now resolved Thrombocytopenia -Resolved Chronic conditions: COPD, hypertension, hyperlipidemia, hypothyroidism -Continue with home medications Essential hypertension: Continue home medications, increased Norvasc to 10 mg, and metoprolol to 25 twice a day, continue lisinopril 40, added HCTZ 25 mg daily, blood pressure better. DVT prophylaxis -Lovenox CODE STATUS: Full Code Discussed with: patient Anticipated discharge date: 3-[address]: Home versus rehab, pending clinical progression
[2021-03-23] MEDS: CHOLECALCIFEROL 25 MCG (1000 IU) TABLET PO SCH (14:43)
--- NOTE | 2021-03-23 15:07 | P.PN ---
Subjective Progress Note Date: 03/23/21 Principal diagnosis: Acute hypoxic respiratory failure secondary to acute Covid 19 pneumonia This is a 70-year-old white female patient with past medical history of advanced COPD used to wear oxygen at one point, currently not on any home oxygen, former smoker, hep C treated with Harvoni, osteoarthritis, fibromyalgia, who came to the emergency department on 03/07/2021 for evaluation of cough, dyspnea, fatigue and myalgias, her symptoms have been present for approximately one week. Patient has no contact with coronavirus. In addition she has poor appetite, nausea, vomiting and diarrhea, she has anginal chest tightness without central chest pain. Chest x-ray shows diffuse moderate interstitial opacities in the left mid to lower lung and right lung base, no pleural effusion or pneumothorax. CTA chest shows bilateral opacities. Admission labs showed white blood cell, 4.5, hemoglobin 13, platelet count of 70, lymphocyte count of 0.14, d-dimer is 1.40, sodium is 137, potassium is 4.6, chloride is 103, CO2 is 18, BUN is 20, creatinine is 1.04. Plasma lactic acid is 2.7, ferritin level is 484, total bilirubin is 1.4, AST is 42, ALT is 23, alkaline phosphatase is 180, LDH is 710, CRP is 146.4, pro calcitonin level is 0.11, COVID 19 PCR. She is currently on 4 L of oxygen process between 92-95%, she is afebrile, still dyspneic, but no acute distress. Patient was started on Decadron, vitamins, and we'll start the patient on Remdesivir Patient was reevaluated today on 03/09/2021, patient remains on 6 L high flow nasal cannula, O2 sats is 91%. Patient tells me that she feels short of breath, no cough no wheezing no fever no chills. Her T-max yesterday was 99.6 today temperature is 98.3. Her WBC count is 5.4, basic metabolic profile is normal renal profile is normal LDH on admission was 710 and C-reactive protein was 146. D-dimer 1.40 platelets are 70,000. On 03/10/2001 patient seen in follow-up on medical surgical floor, today is Remdesivir date 3, FiO2 requirement is currently at 12 L, pulse ox is between 92-96%, still congested, coughing, lung sounds reveal diminished breath sounds with some crackles at the bases. No fever. Continues on Decadron 6 mg daily, vitamins, she is on Mucinex, he hasn't had a recent chest x-ray done for a coupl e of days, her last d-dimer was on 2020 and was at 1.4, no recent LDH a CRP. She states she would like a nebulizer treatment however in view of her quit positive status she cannot have a nebulizer we will order albuterol which she can have 4 times daily scheduled and as needed when necessary every 2 hours. In addition patient is on Symbicort. On 03/15/2021 patient seen in follow-up on medical surgical floor, she continues to require high flow oxygen per 15 L high flow and are present a nonrebreather mask, she states her dyspnea is not worsened. Still coughing, and at times she is able to bring up some phlegm, her pulse ox is 91-92%, for chest pain, she is able to bring up some phlegm at times, no new chest x-ray today, yesterday she received 640 mg Tocilizumab in view of worsening hypoxia, she also remains on IV Solu-Medrol. D-dimer was 1.79 yesterday's labs, d-dimer and LDH a CRP will be ordered for tomorrow. No complaints chest pain, no hemoptysis, no fever. On 03/18/2001 patient seen in follow-up on medical surgical floor, she states she has no worsening dyspnea, although still requiring high flow oxygen at 15 L and 100% nonrebreather mask, and she seems to be breathing comfortably at this time, patient is trying to eat a cookie at the time of my examination, she has a nonrebreather mask off, and on 15 L of oxygen her pulse ox is 73%, but she looks comfortable, in the 100% nonrebreather mask will be placed back on her when she is done eating. He is calm and cooperative, she is oriented 3, no cough, no chest pain. Last chest x-ray was yesterday showing continue bilateral reticulonodular opacities consistent with COVID infection on the background of c hronic parenchymal and emphysematous changes, with no significant change from most recent chest x-ray. Her labs today show white blood cell, 19.1, hemoglobin of 14.4, CO2 is 21, the rest of the electrolytes are within normal limits, B1 is 25, creatinine 0.74, no nausea vomiting or diarrhea, patient is tolerating oral intake. She status post Toci, and she remains on Solu-Medrol at 40 mg every 8 h ours and prophylactic dose of Lovenox. On 03/19/2031 patient seen in follow-up on medical surgical floor, she still remains on high flow nasal cannula at 15 L and 100% nonrebreather mask, she does desaturate into the low 70s when she removes nonrebreather mask however she does not become any more short of breath, seems to be breathing very comfortably, she is currently sitting up in the chair, she is frequently reminded not to remove the nonrebreather mask, she states that she still has occasional cough with production of creamy white phlegm, no hemoptysis, no chest pain, lung sounds reveal some scattered crackles, she is alert and oriented 3, appears to be breathing quite comfortably, no new chest x-ray today, his labs reveal white blood cell count of 17.8, d-dimer is 1.73, BMP is pending, will continue current medical treatment and patient is on prophylactic dose Lovenox, remains on IV Solu-Medrol 40 mg every 8 hours, Symbicort, vitamins, and inhalers On 03/20/2021 patient is seen in follow-up on medical surgical floor, she is currently just on 15 L high flow nasal cannula, very comfortable, she is resting comfortably in bed, denies any worsening dyspnea, she does desaturate with activity, but does recover, not requiring her percent nonrebreathing mask today, she remains on IV Solu-Medrol 40 mg every 8 hours, she is on Lovenox 40 mg daily, she is on inhalers, vitamins. Today's labs have been reviewed showing white count, 12.23, no new d-dimer, electrolytes are within normal limits, BUN of 38 creatinine is 1.0. No new chest x-ray, On 03/21/2021 patient seen in follow-up on medical surgical floor, she is resting comfortably, she is currently off the nonrebreather mask, her pulse ox on 10 L per high flow nasal cannula is 90%, vital signs have been stable, no fever or chills, no worsening dyspnea, occasional congested cough, no sputum production, no chest discomfort. No nausea vomiting or diarrhea, patient continues on IV Solu-Medrol, 40 mg every 8 hours, prophylactic dose of Lovenox. No new labs today, no new chest x-ray, clinically improving On 03/22/2021 patient seen in follow-up on medical surgical floor, today she is on 10 L of oxygen her pulse ox is 92%, she still has a congested cough, and she states her chest hurts with coughing, and feels achy. Otherwise no worsening dyspnea. Sounds positive for diffuse crackles and wheezing, IV Solu-Medrol has been switched to oral prednisone, she is on Mucinex, she is on Lovenox prophylactic dose, we will obtain follow-up chest x-ray tomorrow, she's had no nausea vomiting or diarrhea. On 03/23/2001 patient seen in follow-up on medical surgical floor, she continues to have congestive cough, she states her chest wall is sore with coughing or deep breathing, she is currently on 15 L of oxygen her pulse ox is 89-94%, she is afebrile, hemodynamically she is stable, she sits in a recliner, appears to be no acute distress, she continues on oral prednisone 60 mg daily, she is receiving Mucinex on an as-needed basis, and Tessalon Perles on as-needed basis for her cough, she continues on Lovenox 40 mg her last d-dimer was 1.73, no hemoptysis, Restoril labs have been reviewed from yesterday, no new subtle labs were today. Today's chest x-ray showed no change in the appearance of COVID pneumonia Objective - Vital Signs Vital signs: Vital Signs Temp 97.4 F L 03/23/21 14:00 Pulse 81 03/23/21 14:00 Resp 18 03/23/21 14:00 BP 137/79 03/23/21 14:00 Pulse Ox 94 L 03/23/21 14:00 Intake & Output 03/22/21 03/23/21 03/23/21 18:59 06:59 18:59 Other: Voiding Method Bedside Commode # Voids 3 3 # Bowel Movements 1 - Exam GENERAL EXAM: Alert, pleasant, 70-year-old white female patient currently on 15 L of oxygen and patient is satting at around 92% comfortable in no apparent distress. Not requiring nonrebreather mask HEAD: Normocephalic/atraumatic. EYES: Normal reaction of pupils, equal size. Conjunctiva pink, sclera white. NOSE: Clear with pink turbinates. THROAT: No erythema or exudates. NECK: No masses, no JVD, no thyroid enlargement, no adenopathy. CHEST: No chest wall deformity. Symmetrical expansion. LUNGS: Equal air entry with his crackles and rhonchi CVS: Regular rate and rhythm, normal S1 and S2, no gallops, no murmurs, no rubs ABDOMEN: Soft, nontender. No hepatosplenomegaly, normal bowel sounds, no guarding or rigidity. EXTREMITIES: No clubbing, no edema, no cyanosis, 2+ pulses and upper and lower extremities. MUSCULOSKELETAL: Muscle strength and tone normal. Patient has deformity of the right arm, with history of multiple previous surgeries, extensive bone and nerve damage SPINE: No scoliosis or deformity SKIN: No rashes CENTRAL NERVOUS SYSTEM: Alert and oriented -3. No focal deficits, tone is normal in all 4 extremities. PSYCHIATRIC: Alert and oriented -3. Appropriate affect. Intact judgment and insight. - Labs CBC & Chem 7: 03/22/21 08:16 03/22/21 08:16 Assessment and Plan Plan: Assessment: #1. Acute hypoxic respiratory failure related to acute COVID 19 pneumonia, with onset of symptoms within 1 week of presentation, patient was started on Remdesivir on 03/08/2021 however her hypoxia had progressed and we stopped of Remdesivir and gave Toci on 03/14/2021 #2. Advanced COPD, used to wear home oxygen in the past, but most recently has not required it #3. Osteoarthritis #4. History of hepatitis C, treated with hormone #5. Former smoker #6. History of multiple surgeries involving her right wrist, with extensive joint and nerve damage. Patient was recommended to have right upper arm amputation however she opted against amputation #7. Fibromyalgia #8. Depression #9. Increased d-dimer without CT evidence of pulmonary embolism Plan: She continues to complain of chest wall soreness from episodes of coughing We'll switch to Tessalon Perles 2 scheduled 100 mg 3 times a day And Mucinex to a scheduled basis twice daily Continue weaning FiO2 to maintain O2 saturation between 89-90% if the patient is comfortable Continue oral prednisone, Continue current dose Lovenox Continue inhalers Continue vitamins Once the patient is down to 5 L all less on supplemental oxygen may consider discharge home or subacute rehab Chest x-ray has been reviewed I performed a history & physical examination of the patient and discussed their management with my nurse practitioner, Lucia Kinsey. I reviewed the nurse practitioner's note and agree with the documented findings and plan of care. Lung sounds are positive for diminished breath sounds with bilateral crackles. The findings and the impression was discussed with the patient. I attest to the documentation by the nurse practitioner. Time with Patient: Less than 30
[2021-03-23] MEDS: BENZONATATE 100 MG CAP PO SCH ×2 (16:48→20:41)
[2021-03-23] MEDS: MELATONIN 5 MG TABLET PO PRN (20:40)
[2021-03-23] MEDS: traZODone HCL 100 MG TAB PO SCH (20:40)
[2021-03-23] MEDS: guaiFENesin 600 MG TABLET.ER PO SCH (20:40)
[2021-03-23] MEDS: risperiDONE 2 MG TAB PO SCH (20:41)
[2021-03-24] MEDS: LEVOTHYROXINE 50 MCG TAB PO SCH (05:54)
[2021-03-24] MEDS: ALBUTEROL HFA INHALER INHALATION SCH ×4 (07:15→19:13)
[2021-03-24] MEDS: SYMBICORT 160-4.5 MCG INHALER INHALATION SCH ×2 (07:15→19:13)
[2021-03-24] MEDS: DOCUSATE 100 MG CAP PO SCH ×2 (07:35→20:42)
[2021-03-24] MEDS: SERTRALINE 100 MG TAB PO SCH (07:41)
[2021-03-24] MEDS: hydroCHLOROthiazide 25 MG TAB PO SCH (07:41)
[2021-03-24] MEDS: predniSONE 20 MG TAB PO SCH (07:41)
[2021-03-24] MEDS: guaiFENesin 600 MG TABLET.ER PO SCH ×2 (07:41→20:41)
[2021-03-24] MEDS: ASCORBIC ACID 500 MG TAB PO SCH (07:42)
[2021-03-24] MEDS: ATORVASTATIN 10 MG TAB PO SCH (07:42)
[2021-03-24] MEDS: CALCIUM CARBONATE 500 MG CHEWABLE PO SCH (07:42)
[2021-03-24] MEDS: BENZONATATE 100 MG CAP PO SCH ×3 (07:42→20:42)
[2021-03-24] MEDS: PANTOPRAZOLE 40 MG TABLET PO SCH (07:42)
[2021-03-24] MEDS: CHOLECALCIFEROL 25 MCG (1000 IU) TABLET PO SCH (07:42)
[2021-03-24] MEDS: amLODIPine 10 MG TAB PO SCH (07:42)
[2021-03-24] MEDS: GABAPENTIN 400 MG CAP PO SCH ×3 (07:43→20:42)
[2021-03-24] MEDS: busPIRone HCl 10 MG TAB PO SCH ×2 (07:43→20:41)
[2021-03-24] MEDS: lisinopriL 20 MG TAB PO SCH (07:43)
[2021-03-24] MEDS: METOPROLOL TARTRATE 25 MG TAB PO SCH ×2 (07:44→20:41)
[2021-03-24] MEDS: RALOXIFENE 60 MG TAB PO SCH (07:44)
[2021-03-24] MEDS: ENOXAPARIN 40 MG/0.4 ML SYRINGE SQ SCH (07:44)
[2021-03-24 08:11] LABS: Basophils % (A) 0 %; Eosinophils # (A) 0.1 k/uL (0-0.7); Eosinophils % (A) 1 %; HCT 39.2 % (34.0-46.0); HGB 12.7 gm/dL (11.4-16.0); Lymphocytes % (A) 10 %; MCH 30.3 pg (25.0-35.0); MCHC 32.5 g/dL (31.0-37.0); Mean Platelet Volume 10.7; Monocytes # (A) 0.5 k/uL (0-1.0); Monocytes % (A) 5 %; Neutrophils # (A) 8.5 k/uL (1.3-7.7); Neutrophils % (A) 83 %; Platelet Count 107 k/uL (150-450); RBC 4.21 m/uL (3.80-5.40); RDW 14.1 % (11.5-15.5); WBC 10.3 k/uL (3.8-10.6)
[2021-03-24 08:38] LABS: African American GFR (CKD) 83 (>60 ml/min/1.73 sqM); Anion Gap 10 mmol/L; Blood Urea Nitrogen 44 mg/dL (7-17); C Reactive Protein 0.5 mg/dL (<1.0); Calcium 9.1 mg/dL (8.4-10.2); Carbon Dioxide 20 mmol/L (22-30); Chloride 107 mmol/L (98-107); Glucose 102 mg/dL (74-99); LDH 942 U/L (313-618); Non-African American GFR(CKD) 72 (>60 ml/min/1.73 sqM); Potassium 4.3 mmol/L (3.5-5.1); Sodium 137 mmol/L (137-145)
[2021-03-24 11:40] LABS: ABG Base Excess -3.1 mmol/L; ABG HCO3 23 mmol/L (21-25); ABG Oxygen Saturation 92.4 % (94-97); ABG PCO2 44 mmHg (35-45); ABG PH 7.33 (7.35-7.45); ABG PO2 67 mmHg (83-108); ABG TCO2 24 mmol/L (19-24); Allen Test Performed? Yes
[2021-03-24] MEDS ORDERED: IBUPROFEN 800 MG TAB PO PRN (12:22)
--- NOTE | 2021-03-24 12:26 | P.PN ---
Subjective Progress Note Date: 03/24/21 Patient is doing fairly well today. She denies any shortness of breath. Her oxygen was increased to 15 L via high flow nasal cannula overnight. I checked her O2 sat this morning and he was hovering around 86-89 percent. I did request a blood gas showing O2 sats duration of 92% with PaO2 of 67. Patient is also still complaining of chest wall pain that is easily reproducible and get worse with coughing. She said that one time dose of ibuprofen yesterday had follow-up with her pain. Objective - Vital Signs Vital signs: Vital Signs Temp 97.8 F 03/24/21 06:00 Pulse 83 03/24/21 06:00 Resp 18 03/24/21 06:00 BP 123/79 03/24/21 06:00 Pulse Ox 88 L 03/24/21 06:00 Intake & Output 03/23/21 03/24/21 03/24/21 18:59 06:59 18:59 Other: Voiding Method Bedside Commode # Voids 1 # Bowel Movements 1 1 - Exam General: The patient is awake and alert, in no distress Eye: there is normal conjunctiva bilaterally. Neck: The neck is supple, there is no JVD. Cardiovascular: Normal S1-S2, no S3-S4, no murmurs. Respiratory: Lungs clear to auscultation bilaterally Gastrointestinal: Abdomen is soft, nontender Musculoskeletal: There is no pedal edema. Neurological:. Speech is normal. Skin: Skin is warm and dry - Labs CBC & Chem 7: 03/24/21 06:45 03/24/21 06:45 Labs: Abnormal Lab Results - Last 24 Hours (Table) 03/24/21 03/24/21 03/24/21 Range/Units 06:45 06:45 11:25 Plt Count 107 L (150-450) k/uL Neutrophils # 8.5 H (1.3-7.7) k/uL ABG pH 7.33 L (7.35-7.45) ABG pO2 67 L (83-108) mmHg ABG O2 Saturation 92.4 L (94-97) % Carbon Dioxide 20 L (22-30) mmol/L BUN 44 H (7-17) mg/dL Glucose 102 H (74-99) mg/dL Lactate Dehydrogenase 942 H (313-618) U/L Assessment and Plan Assessment: COVID pneumonitis with acute hypoxic respiratory failure Underlying COPD with history of prolonged tobacco abuse -Continue Vit C, Vit D, Melatonin, on Lovenox -Currently on oxygen 15 L high flow , wean off as tolerated -Goal O2 sat 88-90% -Pulmonary consult appreciated input. Patient received IV Solu-Medrol 40 mg every 8 hours for one week then transitioned to oral prednisone 60 mg daily with a plan for slow taper course -Finger pulse ox reading is not correlating with O2 sats ration on arterial blood gas as finger pulse ox reading was 87% white blood gas showed O2 sat of 92% -Incentive spirometer at bedside and I instructed nursing staff to assist the patient do incentive spirometer every hour -Repeat chest x-ray showed no significant changes Lactic acidosis -On presentation now resolved Thrombocytopenia -Resolved Chronic conditions: COPD, hypertension, hyperlipidemia, hypothyroidism -Continue with home medications Essential hypertension: Continue home medications, increased Norvasc to 10 mg, and metoprolol to 25 twice a day, continue lisinopril 40, added HCTZ 25 mg daily, blood pressure better. DVT prophylaxis -Lovenox CODE STATUS: Full Code Discussed with: patient Anticipated discharge date: 3-[address]: Home versus rehab, pending clinical progression
--- NOTE | 2021-03-24 12:36 | P.PN ---
Progress Note - Text Progress Note Date: 03/24/21 Today, I had a prolonged discussion with the patient and daughter, Brina, over the phone regarding patient's current condition goals of care. We discussed the slow improvement in the patient overall condition in particular her oxygen requirement. Other than the oxygen requirement being high around 15 L of oxygen via high flow nasal cannula patient is doing well and has been sitting in the chair and hanging out in the hospital for the past week. We discussed a prolonged history of tobacco abuse and underlying COPD as a contributing factor to the slow recovery with her lungs. We entertained the idea of palliative care/comfort care within the next day or 2 that would be discussed further with the patient. Patient had other questions about her which I answered all to her satisfaction. Time spent > 16 mins
[2021-03-24 13:28] LABS: Ferritin 380.8 ng/mL (10.0-291.0)
--- NOTE | 2021-03-24 16:57 | P.PN ---
Subjective Progress Note Date: 03/24/21 Principal diagnosis: Acute COVID-19 pneumonia This is a 70-year-old white female patient with past medical history of advanced COPD used to wear oxygen at one point, currently not on any home oxygen, former smoker, hep C treated with Harvoni, osteoarthritis, fibromyalgia, who came to the emergency department on 03/07/2021 for evaluation of cough, dyspnea, fatigue and myalgias, her symptoms have been present for approximately one week. Patient has no contact with coronavirus. In addition she has poor appetite, nausea, vomiting and diarrhea, she has anginal chest tightness without central chest pain. Chest x-ray shows diffuse moderate interstitial opacities in the left mid to lower lung and right lung base, no pleural effusion or pneumothorax. CTA chest shows bilateral opacities. Admission labs showed white blood cell, 4.5, hemoglobin 13, platelet count of 70, lymphocyte count of 0.14, d-dimer is 1.40, sodium is 137, potassium is 4.6, chloride is 103, CO2 is 18, BUN is 20, creatinine is 1.04. Plasma lactic acid is 2.7, ferritin level is 484, total bilirubin is 1.4, AST is 42, ALT is 23, alkaline phosphatase is 180, LDH is 710, CRP is 146.4, pro calcitonin level is 0.11, COVID 19 PCR. She is currently on 4 L of oxygen process between 92-95%, she is afebrile, still dyspneic, but no acute distress. Patient was started on Decadron, vitamins, and we'll start the patient on Remdesivir Patient was reevaluated today on 03/09/2021, patient remains on 6 L high flow nasal cannula, O2 sats is 91%. Patient tells me that she feels short of breath, no cough no wheezing no fever no chills. Her T-max yesterday was 99.6 today temperature is 98.3. Her WBC count is 5.4, basic metabolic profile is normal renal profile is normal LDH on admission was 710 and C-reactive protein was 146. D-dimer 1.40 platelets are 70,000. On 03/10/2001 patient seen in follow-up on medical surgical floor, today is Remdesivir date 3, FiO2 requirement is currently at 12 L, pulse ox is between 92-96%, still congested, coughing, lung sounds reveal diminished breath sounds with some crackles at the bases. No fever. Continues on Decadron 6 mg daily, vitamins, she is on Mucinex, he hasn't had a recent chest x-ray done for a couple of days, her last d-dimer was on 2020 and was at 1.4, no recent LDH a CRP. She states she would like a nebulizer treatment however in view of her quit positive status she cannot have a nebulizer we will order albuterol which she can have 4 times daily scheduled and as needed when necessary every 2 hours. In addition patient is on Symbicort. On 03/15/2021 patient seen in follow-up on medical surgical floor, she continues to require high flow oxygen per 15 L high flow and are present a nonrebreather mask, she states her dyspnea is not worsened. Still coughing, and at times she is able to bring up some phlegm, her pulse ox is 91-92%, for chest pain, she is able to bring up some phlegm at times, no new chest x-ray today, yesterday she received 640 mg Tocilizumab in view of worsening hypoxia, she also remains on IV Solu-Medrol. D-dimer was 1.79 yesterday's labs, d-dimer and LDH a CRP will be ordered for tomorrow. No complaints chest pain, no hemoptysis, no fever. On 03/18/2001 patient seen in follow-up on medical surgical floor, she states she has no worsening dyspnea, although still requiring high flow oxygen at 15 L and 100% nonrebreather mask, and she seems to be breathing comfortably at this time, patient is trying to eat a cookie at the time of my examination, she has a nonrebreather mask off, and on 15 L of oxygen her pulse ox is 73%, but she looks comfortable, in the 100% nonrebreather mask will be placed back on her when she is done eating. He is calm and cooperative, she is oriented 3, no cough, no chest pain. Last chest x-ray was yesterday showing continue bilateral reticulonodular opacities consistent with COVID infection on the background of chronic parenchymal and emphysematous changes, with no significant change from most recent chest x-ray. Her labs today show white blood cell, 19.1, hemoglobin of 14.4, CO2 is 21, the rest of the electrolytes are within normal limits, B1 is 25, creatinine 0.74, no nausea vomiting or diarrhea, patient is tolerating oral intake. She status post Toci, and she remains on Solu-Medrol at 40 mg every 8 hours and prophylactic dose of Lovenox. On 03/19/2031 patient seen in follow-up on medical surgical floor, she still remains on high flow nasal cannula at 15 L and 100% nonrebreather mask, she does desaturate into the low 70s when she removes nonrebreather mask however she does not become any more short of breath, seems to be breathing very comfortably, she is currently sitting up in the chair, she is frequently reminded not to remove the nonrebreather mask, she states that she still has occasional cough with production of creamy white phlegm, no hemoptysis, no chest pain, lung sounds reveal some scattered crackles, she is alert and oriented 3, appears to be breathing quite comfortably, no new chest x-ray today, his labs reveal white bl ood cell count of 17.8, d-dimer is 1.73, BMP is pending, will continue current medical treatment and patient is on prophylactic dose Lovenox, remains on IV Solu-Medrol 40 mg every 8 hours, Symbicort, vitamins, and inhalers On 03/20/2021 patient is seen in follow-up on medical surgical floor, she is currently just on 15 L high flow nasal cannula, very comfortable, she is resting comfortably in bed, denies any worsening dyspnea, she does desaturate with activity, but does recover, not requiring her percent nonrebreathing mask today, she remains on IV Solu-Medrol 40 mg every 8 hours, she is on Lovenox 40 mg daily, she is on inhalers, vitamins. Today's labs have been reviewed showing white count, 12.23, no new d-dimer, electrolytes are within normal limits, BUN of 38 creatinine is 1.0. No new chest x-ray, On 03/21/2021 patient seen in follow-up on medical surgical floor, she is resting comfortably, she is currently off the nonrebreather mask, her pulse ox on 10 L per high flow nasal cannula is 90%, vital signs have been stable, no fever or chills, no worsening dyspnea, occasional congested cough, no sputum production, no chest discomfort. No nausea vomiting or diarrhea, patient co ntinues on IV Solu-Medrol, 40 mg every 8 hours, prophylactic dose of Lovenox. No new labs today, no new chest x-ray, clinically improving On 03/22/2021 patient seen in follow-up on medical surgical floor, today she is on 10 L of oxygen her pulse ox is 92%, she still has a congested cough, and she states her chest hurts with coughing, and feels achy. Otherwise no worsening dyspnea. Sounds positive for diffuse crackles and wheezing, IV Solu-Medrol has been switched to oral prednisone, she is on Mucinex, she is on Lovenox prophylactic dose, we will obtain follow-up chest x-ray tomorrow, she's had no nausea vomiting or diarrhea. On 03/23/2001 patient seen in follow-up on medical surgical floor, she continues to have congestive cough, she states her chest wall is sore with coughing or deep breathing, she is currently on 15 L of oxygen her pulse ox is 89-94%, she is afebrile, hemodynamically she is stable, she sits in a recliner, appears to be no acute distress, she continues on oral prednisone 60 mg daily, she is receiving Mucinex on an as-needed basis, and Tessalon Perles on as-needed basis for her cough, she continues on Lovenox 40 mg her last d-dimer was 1.73, no hemoptysis, Restoril labs have been reviewed from yesterday, no new subtle labs were today. Today's chest x-ray showed no change in the appearance of COVID pneumonia The patient is seen today 03/24/2021 in follow-up on the regular medical floor. She is currently sitting up in bed. Awake and alert in no acute distress. She is still requiring 15 L high flow nasal cannula to maintain O2 saturations in the low 90s. Blood gases were drawn on the patient earlier today with a PaO2 of 67, pCO2 44, pH 7.33. White count 10.3. Hemoglobin 12.7. Lymphocytes 1.0. Sodium 137. Potassium 4.3. Creatinine 0.82. Ferritin 380. LDH 942. C- reactive protein 0.5. She is continued on bronchodilators, vitamin supplements, Lovenox, prednisone. Objective - Vital Signs Vital signs: Vital Signs Temp 97.8 F 03/24/21 14:00 Pulse 78 03/24/21 14:00 Resp 16 03/24/21 14:00 BP 134/70 03/24/21 14:00 Pulse Ox 95 03/24/21 14:00 Intake & Output 03/23/21 03/24/21 03/24/21 18:59 06:59 18:59 Other: Voiding Method Bedside Commode # Voids 1 # Bowel Movements 1 1 - Exam GENERAL EXAM: Alert, pleasant 70-year-old female patient, on 15 L high flow nasal cannula, fairly comfortable in no apparent distress. HEAD: Normocephalic. EYES: Normal reaction of pupils, equal size. NOSE: Clear with pink turbinates. THROAT: No erythema or exudates. NECK: No masses, no JVD. CHEST: No chest wall deformity. LUNGS: Equal air entry with crackles in the bilateral bases CVS: S1 and S2 normal with no audible murmur, regular rhythm. ABDOMEN: No hepatosplenomegaly, normal bowel sounds, no guarding or rigidity. SPINE: No scoliosis or deformity SKIN: No rashes CENTRAL NERVOUS SYSTEM: No focal deficits, tone is normal in all 4 extremities. EXTREMITIES: There is no peripheral edema. No clubbing, no cyanosis. Peripheral pulses are intact. - Labs CBC & Chem 7: 03/24/21 06:45 03/24/21 06:45 Labs: Abnormal Lab Results - Last 24 Hours (Table) 03/24/21 03/24/21 03/24/21 Range/Units 06:45 06:45 11:25 Plt Count 107 L (150-450) k/uL Neutrophils # 8.5 H (1.3-7.7) k/uL ABG pH 7.33 L (7.35-7.45) ABG pO2 67 L (83-108) mmHg ABG O2 Saturation 92.4 L (94-97) % Carbon Dioxide 20 L (22-30) mmol/L BUN 44 H (7-17) mg/dL Glucose 102 H (74-99) mg/dL Ferritin 380.8 H (10.0-291.0) ng/mL Lactate Dehydrogenase 942 H (313-618) U/L Assessment and Plan Assessment: 1 Acute hypoxic respiratory failure related to acute COVID 19 pneumonia, with onset of symptoms within 1 week of presentation, patient was started on Remdesivir on 03/08/2021 however her hypoxia had progressed and we stopped of Remdesivir and gave Toci on 03/14/2021 2 Advanced COPD, used to wear home oxygen in the past, but most recently has not required it 3 Osteoarthritis 4 History of hepatitis C, treated with hormone 5 Former smoker 6 History of multiple surgeries involving her right wrist, with extensive joint and nerve damage. Patient was recommended to have right upper arm amputation however she opted against amputation 7 Fibromyalgia 8 Depression 9 Increased d-dimer without CT evidence of pulmonary embolism Plan: The patient was seen and evaluated by Dr. Klein Decrease the O2 to 12 L high flow nasal cannula Okay to maintain O2 saturations 88% or higher Continue Lovenox, prednisone, vitamin supplements Increase her activity as tolerated We will continue to follow I, the cosigning physician, performed a history & physical examination of the patient. Lungs sounds with crackles in the posterior bases. Maintaining good O2 saturations in the 90s on 12 L high flow nasal cannula. I discussed the assessment and plan of care with my nurse practitioner, Mikala Kern. I attest to the above note as dictated by her.
[2021-03-24] MEDS: oxyCODONE-APAP 7.5-325MG 1 EACH TAB PO PRN (18:16)
[2021-03-24] MEDS: risperiDONE 2 MG TAB PO SCH (20:41)
[2021-03-24] MEDS: MELATONIN 5 MG TABLET PO PRN (20:42)
[2021-03-24] MEDS: traZODone HCL 100 MG TAB PO SCH (20:42)
[2021-03-25] MEDS: LEVOTHYROXINE 50 MCG TAB PO SCH (05:49)
[2021-03-25] MEDS: oxyCODONE-APAP 7.5-325MG 1 EACH TAB PO PRN (05:49)
[2021-03-25] MEDS: CALCIUM CARBONATE 500 MG CHEWABLE PO SCH (07:37)
[2021-03-25] MEDS: hydroCHLOROthiazide 25 MG TAB PO SCH (07:37)
[2021-03-25] MEDS: ENOXAPARIN 40 MG/0.4 ML SYRINGE SQ SCH (07:37)
[2021-03-25] MEDS: SERTRALINE 100 MG TAB PO SCH (07:37)
[2021-03-25] MEDS: predniSONE 20 MG TAB PO SCH (07:37)
[2021-03-25] MEDS: ATORVASTATIN 10 MG TAB PO SCH (07:37)
[2021-03-25] MEDS: amLODIPine 10 MG TAB PO SCH (07:37)
[2021-03-25] MEDS: lisinopriL 20 MG TAB PO SCH (07:37)
[2021-03-25] MEDS: guaiFENesin 600 MG TABLET.ER PO SCH ×2 (07:38→20:40)
[2021-03-25] MEDS: BENZONATATE 100 MG CAP PO SCH ×3 (07:38→20:40)
[2021-03-25] MEDS: CHOLECALCIFEROL 25 MCG (1000 IU) TABLET PO SCH (07:38)
[2021-03-25] MEDS: busPIRone HCl 10 MG TAB PO SCH ×2 (07:38→20:40)
[2021-03-25] MEDS: GABAPENTIN 400 MG CAP PO SCH ×3 (07:38→20:40)
[2021-03-25] MEDS: PANTOPRAZOLE 40 MG TABLET PO SCH (07:38)
[2021-03-25] MEDS: ASCORBIC ACID 500 MG TAB PO SCH (07:38)
[2021-03-25] MEDS: METOPROLOL TARTRATE 25 MG TAB PO SCH ×2 (07:38→20:40)
[2021-03-25] MEDS: DOCUSATE 100 MG CAP PO SCH ×2 (07:39→20:40)
[2021-03-25] MEDS: RALOXIFENE 60 MG TAB PO SCH (07:39)
[2021-03-25] MEDS: ALBUTEROL HFA INHALER INHALATION SCH ×4 (09:16→21:50)
[2021-03-25] MEDS: SYMBICORT 160-4.5 MCG INHALER INHALATION SCH ×2 (09:16→21:51)
--- NOTE | 2021-03-25 10:14 | P.CRDCN ---
History of Present Illness History of present illness: HISTORY OF PRESENTING ILLNESS This is a pleasant 70-year-old female past medical history significant for COPD, former smoker(smoked 1-1.5ppd, quit in 2019) Hypertension, hyperlipide monica, hypothyroidism, alcohol dependence (drinks 3-4 beers per day). . 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 We have been asked to see in consultation for chest pain. Patient presents emergency department 03/07/21, with complaints of cough, shortness of breath, and fatigue. She had her symptoms for about a week, her daughter was recently tested positive for COVID. Patient found to be COVID- 19 positive. She also reports a cough with productive gray, and plan, bodyaches, subjective fevers, diarrhea, decreased appetite. On presentation to the emergency room she was hypoxic 89% on room air. Patient states she started having chest pain early afternoon yesterday 03/24/21. It was left sided, sharp, non-radiating, and exertional. She states it lasted all day. She was given Ibuprofen that did not help her pain. She was then given Percocet around 6:00pm at that helped relieved her chest pain. Deep breathing and walking to the bathroom worsens her pain. She states that she has had similar chest pain prior to COVID-19 infection. She also endorses shortness of breath while sleeping at home, prior to Covid-19 she does occasionally wake up short of breath, she sleeps with 2 pillows. She denies family history of cardiac disease. Mother had a stroke in her 70s. She denies history of diabetes, NV or stroke. Patient seen and examined at bedside, with no complaints Laboratory data reviewed, troponin negative 1, d-dimer 1.15, WBC 10.3, hemoglobin 12.7, platelets 107, sodium 137, potassium 4.3, serum creatinine 0.82. Current home cardiac medications include lisinopril 40 mg daily, atorvastatin 10 mg daily, amlodipine 5 mg daily. DIAGNOSTICS EKG reveals Sinus rhythm 82, with no significant ST-T changes. Prior EKG sinus tachycardia, HR 111, no significant ST-T wave abnormalities Telemetry- patient not on cardiac telemetry Chest xray similar to prior exam- bilateral reticulonodular opacities consistent with covid infection background chronic parenchymal abd emphysematous change. CT chest- negative for pulmonary embolism n REVIEW OF SYSTEMS At the time of my exam: CONSTITUTIONAL: +fever +Decreased appetite Denies chills. CARDIOVASCULAR: + chest pain, +shortness of breath, +orthopnea, +PND, Denies palpitations. RESPIRATORY: + cough. GASTROINTESTINAL: +Diarrhea Denies abdominal pain, constipation, nausea or vomiting. MUSCULOSKELETAL: Denies myalgias. NEUROLOGIC: Denies numbness, tingling, headacbe or weakness. ENDOCRINE: +Fatigue, Denies weight change, polydipsia or polyurina. GENITOURINARY: Denies burning, hematuria or urgency with micturation. HEMATOLOGIC: Denies history of anemia or bleeding. PHYSICAL EXAMINATION Blood pressure 122/70 heart rate 99 afebrile and maintaining oxygen saturation on 94% 15L high flow cannula. CONSTITUTIONAL: No apparent distress. HEENT: Head is normocephalic. Pupils are equal, round. Sclerae anicteric. Mucous membranes of the mouth are moist. No JVD. No carotid bruit. CHEST EXAMINATION: Lungs are diminished to auscultation, crackles in bilateral bases. No chest wall tenderness is noted on palpation or with deep breathing. HEART EXAMINATION: Regular rate and rhythm. S1, S2 heard. No murmurs, gallops or rub. ABDOMEN: Soft, nontender. Positive bowel sounds. EXTREMITIES: 2+ peripheral pulses, no lower extremity edema and no calf tenderness. SKIN: intact NEUROLOGIC EXAMINATION: Patient is awake, alert and oriented x3. ASSESSMENT Chest pain, atypical, troponin negative x 1, EKG with no evidce of ischemia. Acute hypoxic restroom failure related acute COVID-19 COPD History of Hepatitis C Former nicotine dependence Hypertension Hyperlipidemia Alcohol dependence Hypothyroidism PLAN Obtain 2D echocardiogram and doppler study to assess cardiac structure and function. Start Imdur 30mg daily No need for stress test while inpatient. Patient can follow up with Dr. Garnica outpatient for possible stress test to assess for stress induced cardiac ischemia. Thank you kindly for this consultation. Nurse Practitioner note has been reviewed, I agree with a documented findings and plan of care. Patient was seen and examined. Past Medical History Past Medical History: Cancer, COPD, Fibromyalgia, Osteoarthritis (OA), Pneumonia, Rheumatoid Arthritis (RA) Additional Past Medical History / Comment(s): Pt tested covid + 03/07/21 [facility] ER. 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 L hand and ulcer on L wrist History of Any Multi-Drug Resistant Organisms: None Reported Past Surgical History: Back Surgery, Hysterectomy, Joint Replacement, Orthopedic Surgery Additional Past Surgical History / Comment(s): L partial nephrectomy, R wrist surgery for fracture, 3 L spine surgeries, 2 cervical surgeries, L hemiarthrop lasty d/t fracture, colonoscopy Past Anesthesia/Blood Transfusion Reactions: No Reported Reaction Smoking Status: Former smoker - Past Family History Father Family Medical History: Cancer Additional Family Medical History / Comment(s): LUNG CA Mother Family Medical History: Osteoarthritis (OA) Medications and Allergies Home Medications Medication Instructions Recorded Confirmed Type Raloxifene [Evista] 60 mg PO DAILY 02/07/15 03/07/21 History Sertraline HCl [Zoloft] 200 mg PO DAILY 02/07/15 03/07/21 History Gabapentin 800 mg PO TID 04/05/15 03/07/21 History Levothyroxine Sodium [Synthroid] 50 mcg PO DAILY 04/05/15 03/07/21 History risperiDONE [RisperDAL] 2 mg PO HS 04/05/15 03/07/21 History Pantoprazole Sodium [Protonix] 40 mg PO DAILY 08/28/16 03/07/21 History Docusate [Colace] 100 mg PO BID #60 capsule 10/01/16 03/07/21 Rx oxyCODONE-APAP 7.5-325MG [Percocet 1 tab PO Q6H PRN 07/03/19 03/07/21 History 7.5-325 mg] Ascorbic Acid [Vitamin C] 500 mg PO DAILY 01/14/20 03/07/21 History Atorvastatin [Lipitor] 10 mg PO DAILY 01/14/20 03/07/21 History Calcium Carbonate [Calcium] 600 mg PO DAILY 01/14/20 03/07/21 History busPIRone HCl [Buspar] 10 mg PO BID 01/14/20 03/07/21 History tiZANidine [Zanaflex] 4 mg PO TID PRN 01/14/20 03/07/21 History traZODone HCL 100 mg PO HS 01/14/20 03/07/21 History Budesonide-Formot 160-4.5 Mcg 2 puff INHALATION RT-BID 30 Days 01/18/20 03/07/21 Rx [Symbicort 160-4.5 Mcg Inhaler] #1 inhaler amLODIPine [Norvasc] 5 mg PO DAILY #30 tab 01/18/20 03/07/21 Rx lisinopriL [Zestril] 40 mg PO DAILY #30 tab 01/18/20 03/07/21 Rx Naproxen 500 mg PO BID PRN 03/07/21 03/07/21 History Nicotine 21Mg/24Hr Patch [Habitrol] 1 patch TRANSDERM DAILY PRN 03/07/21 03/07/21 History Allergies Allergy/AdvReac Type Severity Reaction Status Date / Time Penicillins Allergy Dyspnea Verified 03/07/21 21:18 aspirin AdvReac Nausea & Verified 03/07/21 21:18 Vomiting morphine AdvReac Hallucinati Verified 03/07/21 21:18 ons Physical Exam Vitals: Vital Signs Temp Pulse Resp BP Pulse Ox 03/25/21 07:30 99 122/70 03/25/21 05:49 97.6 F 76 16 107/70 94 L 03/25/21 02:09 97.5 F L 74 16 130/81 95 03/24/21 21:05 98.5 F 84 16 140/73 95 03/24/21 18:00 98.3 F 81 16 134/79 85 L 03/24/21 14:00 97.8 F 78 16 134/70 95 03/24/21 10:00 97.5 F L 67 16 126/80 93 L Intake and Output 03/24/21 03/25/21 03/25/21 22:59 06:59 14:59 Other: Voiding Method Bedside Commode # Voids 4 3 # Bowel Movements 3 1 Results 03/24/21 06:45 03/24/21 06:45 Cardiac Enzymes 03/24/21 Range/Units 18:12 Troponin I <0.012 (0.000-0.034) ng/mL Current Medications Generic Name Dose Route Start Last Admin Trade Name Freq PRN Reason Stop Dose Admin Acetaminophen 650 mg 03/08/21 10:16 03/14/21 08:17 Acetaminophen Tab 325 Mg Tab PO 650 mg Q6HR PRN Administration Fever and/ or Pain Albuterol Sulfate 1 puff 03/10/21 16:00 03/24/21 19:13 Albuterol Hfa Inhaler INHALATION 1 puff RT-QID MARU Administration Amlodipine Besylate 10 mg 03/12/21 09:00 03/25/21 07:37 Amlodipine 10 Mg Tab PO 10 mg DAILY MARU Administration Ascorbic Acid 1,000 mg 03/24/21 09:00 03/25/21 07:38 Ascorbic Acid 500 Mg Tab PO 1,000 mg DAILY MARU Administration Atorvastatin Calcium 10 mg 03/08/21 09:00 03/25/21 07:37 Atorvastatin 10 Mg Tab PO 10 mg DAILY MARU Administration Benzonatate 100 mg 03/23/21 16:00 03/25/21 07:38 Benzonatate 100 Mg Cap PO 100 mg TID [facility] Administration Budesonide/Formoterol Fumarate 2 puff 03/08/21 08:00 03/24/21 19:13 Symbicort 160-4.5 Mcg Inhaler INHALATION 2 puff RT-BID MARU Administration Buspirone HCl 10 mg 03/08/21 09:00 03/25/21 07:38 Buspirone Hcl 10 Mg Tab PO 10 mg BID [facility] Administration Calcium Carbonate/Glycine 500 mg 03/08/21 09:00 03/25/21 07:37 Calcium Carbonate 500 Mg Chewable PO 500 mg DAILY [facility] Administration Cholecalciferol 75 mcg 03/23/21 14:30 03/25/21 07:38 Cholecalciferol 25 Mcg (1000 Iu) Tablet PO 75 mcg DAILY [facility] Administration Docusate Sodium 100 mg 03/08/21 21:00 03/25/21 07:39 Docusate 100 Mg Cap PO Not Given BID [facility] Enoxaparin Sodium 40 mg 03/08/21 09:00 03/25/21 07:37 Enoxaparin 40 Mg/0.4 Ml Syringe SQ 40 mg DAILY [facility] Administration Gabapentin 800 mg 03/08/21 09:00 03/25/21 07:38 Gabapentin 400 Mg Cap PO 800 mg TID [facility] Administration Guaifenesin 1,200 mg 03/23/21 21:00 03/25/21 07:38 Guaifenesin 600 Mg Tablet.Er PO 1,200 mg Q12HR MARU Administration Hydrochlorothiazide 25 mg 03/17/21 09:45 03/25/21 07:37 Hydrochlorothiazide 25 Mg Tab PO 25 mg DAILY [facility] Administration Ibuprofen 800 mg 03/24/21 12:22 03/24/21 16:26 Ibuprofen 800 Mg Tab PO 800 mg TID PRN Administration Pain Levothyroxine Sodium 50 mcg 03/08/21 06:30 03/25/21 05:49 Levothyroxine 50 Mcg Tab PO 50 mcg DAILY@0630 [facility]U Administration Lisinopril 40 mg 03/08/21 10:30 03/25/21 07:37 Lisinopril 20 Mg Tab PO 40 mg DAILY [facility] Administration Melatonin 5 mg 03/08/21 00:43 03/24/21 20:42 Melatonin 5 Mg Tablet PO 5 mg HS PRN Administration Insomnia Metoprolol Tartrate 25 mg 03/15/21 09:30 03/25/21 07:38 Metoprolol Tartrate 25 Mg Tab PO 25 mg BID [facility]U Administration Naloxone HCl 0.2 mg 03/07/21 20:31 Naloxone 0.4 Mg/Ml 1 Ml Vial IV Q2M PRN Opioid Reversal Nicotine 1 patch 03/08/21 00:42 Nicotine 21mg/24hr Patch TRANSDERM DAILY PRN Nicotine Cravings Oxycodone/Acetaminophen 1 each 03/08/21 00:42 03/25/21 05:49 Oxycodone-Apap 7.5-325mg 1 Each Tab PO 1 each Q6H PRN Administration Pain Pantoprazole Sodium 40 mg 03/08/21 07:30 03/25/21 07:38 Pantoprazole 40 Mg Tablet PO 40 mg [id number] MARU Administration Phenol/Menthol 1 applic 03/17/21 08:12 03/18/21 20:28 Phenol 1.4% Sore Throat [place] Bottle MUCOUS MEM 1 applic Q2HR PRN Administration Sore Throat Prednisone 60 mg 03/23/21 09:00 03/25/21 07:37 Prednisone 20 Mg Tab PO 60 mg DAILY [facility] Administration Raloxifene HCl 60 mg 03/08/21 10:30 03/25/21 07:39 Raloxifene 60 Mg Tab PO 60 mg DAILY [facility] Administration Risperidone 2 mg 03/08/21 21:00 03/24/21 20:41 Risperidone 2 Mg Tab PO 2 mg HS MARU Administration Sertraline HCl 200 mg 03/08/21 10:30 03/25/21 07:37 Sertraline 100 Mg Tab PO 200 mg DAILY [facility] Administration Tizanidine HCl 4 mg 03/08/21 10:09 03/15/21 10:08 Tizanidine 4 Mg Tab PO 4 mg TID PRN Administration Muscle Spasm Trazodone HCl 100 mg 03/08/21 21:00 03/24/21 20:42 Trazodone Hcl 100 Mg Tab PO 100 mg HS MARU Administration Intake and Output 03/24/21 03/25/21 03/25/21 22:59 06:59 14:59 Other: Voiding Method Bedside Commode # Voids 4 3 # Bowel Movements 3 1 03/24/21 06:45 03/24/21 06:45
[2021-03-25] MEDS: ISOSORBIDE MONONITRATE ER 30 MG TAB.ER.24H PO SCH (10:38)
--- NOTE | 2021-03-25 11:18 | P.PN ---
Subjective Progress Note Date: 03/25/21 Patient is feeling fairly well today. She denies any shortness of breath. She was having some chest wall pain over the past couple of days that resolved. She was seen and evaluated by cardiology this morning. She is currently on 12 L of oxygen via high flow nasal cannula. Objective - Vital Signs Vital signs: Vital Signs Temp 97.6 F 03/25/21 05:49 Pulse 99 03/25/21 07:30 Resp 16 03/25/21 05:49 BP 122/70 03/25/21 07:30 Pulse Ox 94 L 03/25/21 05:49 Intake & Output 03/24/21 03/25/21 03/25/21 18:59 06:59 18:59 Other: Voiding Method Bedside Commode # Voids 4 3 # Bowel Movements 3 1 - Exam General: The patient is awake and alert, in no distress Eye: there is normal conjunctiva bilaterally. Neck: The neck is supple, there is no JVD. Cardiovascular: Normal S1-S2, no S3-S4, no murmurs. Respiratory: Lungs clear to auscultation bilaterally Gastrointestinal: Abdomen is soft, nontender Musculoskeletal: There is no pedal edema. Neurological:. Speech is normal. Skin: Skin is warm and dry - Labs CBC & Chem 7: 03/24/21 06:45 03/24/21 06:45 Labs: Abnormal Lab Results - Last 24 Hours (Table) 03/24/21 03/24/21 03/24/21 Range/Units 06:45 11:25 18:12 D-Dimer 1.15 H (<0.60) mg/L FEU ABG pH 7.33 L (7.35-7.45) ABG pO2 67 L (83-108) mmHg ABG O2 Saturation 92.4 L (94-97) % Ferritin 380.8 H (10.0-291.0) ng/mL Assessment and Plan Assessment: This is a 70-year-old female with past medical history noted below who presented to the emergency room originally with worsening cough, shortness of breath, and fatigue. Patient was evaluated in the ER and admitted to the hospital for further management of her medical problems noted below. COVID pneumonitis with acute hypoxic respiratory failure Underlying COPD with history of prolonged tobacco abuse -Continue Vit C, Vit D, Melatonin, on Lovenox -Currently on oxygen 12 L high flow , wean off as tolerated -Goal O2 sat 88-90% -CT angiogram on presentation negative for PE -Pulmonary consult appreciated input. Patient received IV Solu-Medrol 40 mg every 8 hours for one week then transitioned to oral prednisone 60 mg daily with a plan for slow taper course -Incentive spirometer at bedside and I instructed nursing staff to assist the patient do incentive spirometer every hour -Repeat chest x-ray showed no significant changes -Continue albuterol inhaler every 6 hours, Symbicort twice daily, Mucinex and Tessalon Perles Chest pain -Atypical in nature and mostly musculoskeletal and easily reproducible on exam. Pain improved with ibuprofen -12-lead EKG showed no acute ischemic changes. Troponin was negative -Patient was seen and evaluated by cardiology. Echocardiogram ordered for further evaluation of cardiac function. Lactic acidosis -On presentation now resolved Thrombocytopenia -Resolved Chronic conditions: COPD, hypertension, hyperlipidemia, hypothyroidism -Continue with home medications Essential hypertension: Continue home medications, increased Norvasc to 10 mg, and metoprolol to 25 twice a day, continue lisinopril 40, added HCTZ 25 mg daily, blood pressure better. Today, I had a prolonged discussion with the patient and her daughter over the phone regarding goals of care. We discussed hospice philosophy and comfort care. Patient and her daughter are not interested in this time and would like to continue current management. I answered all their questions to satisfaction. DVT prophylaxis -Lovenox CODE STATUS: Full Code Discussed with: patient Anticipated discharge date: 3-[address]: Home versus rehab, pending clinical progression
--- NOTE | 2021-03-25 12:22 | ECHOF ---
Referral Reason:chest pain MEASUREMENTS -------- HEIGHT: 165.1 cm WEIGHT: 79.4 kg BP: 122/70 RVIDd: 3.1 cm (< 3.3) IVSd: 1.3 cm (0.6 - 1.1) LVIDd: 2.4 cm (3.9 - 5.3) LVPWd: 1.3 cm (0.6 - 1.1) IVSs: 1.4 cm LVIDs: 1.6 cm LVPWs: 1.7 cm LAESV Index (A-L): 26.90 ml/m Ao Diam: 2.5 cm (2.0 - 3.7) AV Cusp: 1.8 cm (1.5 - 2.6) MV EXCURSION: 10.541 mm (> 18.000) MV EF SLOPE: 59 mm/s (70 - 150) EPSS: 0.3 cm MV E Isaiah: 0.49 m/s MV DecT: 217 ms MV A Isaiah: 0.94 m/s MV E/A Ratio: 0.52 RAP: 5.00 mmHg RVSP: 36.76 mmHg FINDINGS -------- Sinus rhythm. This was a technically adequate study. The left ventricular size is normal. There is mild concentric left ventricular hypertrophy. Overa ll left ventricular systolic function is normal with, an EF between 55 - 60 %. The diastolic fillin g pattern is normal for the age of the patient 11.72. The right ventricle is normal in size. Normal LA size by volume 22+/-6 ml/m2. The right atrial size is normal. Interatrial and interventricular septum intact. There is mild aortic valve sclerosis. Trace to mild aortic regurgitation. There is no evidence of aortic stenosis. The mitral valve is normal. There is trace to mild mitral regurgitation. Mild tricuspid regurgitation present. There is mild pulmonary hypertension. The right ventricular systolic pressure, as measured by Doppler, is 36.76mmHg. There is no pulmonic regurgitation present. The aortic root size is normal. Normal inferior vena cava with normal inspiratory collapse consistent with estimated right atrial pre ssure of 5 mmHg. There is no pericardial effusion. CONCLUSIONS -------- 1. There is mild concentric left ventricular hypertrophy. 2. Overall left ventricular systolic function is normal with, an EF between 55 - 60 %. 3. The diastolic filling pattern is normal for the age of the patient 11.72 4. Normal LA size by volume 22+/-6 ml/m2. 5. There is mild aortic valve sclerosis. 6. Trace to mild aortic regurgitation. 7. There is trace to mild mitral regurgitation. 8. Mild tricuspid regurgitation present. 9. There is mild pulmonary hypertension. [employer]LA[employer]IER: Effie Goodson RDCS
--- NOTE | 2021-03-25 12:41 | XR ---
EXAMINATION TYPE: XR chest 1V portable DATE OF EXAM: 03/25/2021 CLINICAL HISTORY: Difficulty breathing and covid progress study. TECHNIQUE: Single AP portable upright view of the chest is obtained. COMPARISON: Chest x-ray from 2 days earlier and older studies. FINDINGS: Long segment Jara rods in the thoracolumbar spine are partially imaged similar to pr ior studies. Cardiac silhouette size is stable and within normal limits. Continued increased reticulonodular ottoniel ings bilaterally on background chronic parenchymal fibrotic changes. Degenerative change bilateral gl enohumeral joints redemonstrated. IMPRESSION: Continued bilateral reticulonodular multifocal opacities consistent with covid infection on background chronic parenchymal change. No significant change from most recent x-ray.
--- NOTE | 2021-03-25 15:42 | P.PN ---
Subjective Progress Note Date: 03/25/21 Principal diagnosis: Acute hypoxic respiratory failure secondary to acute Covid 19 pneumonia This is a 70-year-old white female patient with past medical history of advanced COPD used to wear oxygen at one point, currently not on any home oxygen, former smoker, hep C treated with Harvoni, osteoarthritis, fibromyalgia, who came to the emergency department on 03/07/2021 for evaluation of cough, dyspnea, fatigue and myalgias, her symptoms have been present for approximately one week. Patient has no contact with coronavirus. In addition she has poor appetite, nausea, vomiting and diarrhea, she has anginal chest tightness without central chest pain. Chest x-ray shows diffuse moderate interstitial opacities in the left mid to lower lung and right lung base, no pleural effusion or pneumothorax. CTA chest shows bilateral opacities. Admission labs showed white blood cell, 4.5, hemoglobin 13, platelet count of 70, lymphocyte count of 0.14, d-dimer is 1.40, sodium is 137, potassium is 4.6, chloride is 103, CO2 is 18, BUN is 20, creatinine is 1.04. Plasma lactic acid is 2.7, ferritin level is 484, total bilirubin is 1.4, AST is 42, ALT is 23, alkaline phosphatase is 180, LDH is 710, CRP is 146.4, pro calcitonin level is 0.11, COVID 19 PCR. She is currently on 4 L of oxygen process between 92-95%, she is afebrile, still dyspneic, but no acute distress. Patient was started on Decadron, vitamins, and we'll start the patient on Remdesivir Patient was reevaluated today on 03/09/2021, patient remains on 6 L high flow nasal cannula, O2 sats is 91%. Patient tells me that she feels short of breath, no cough no wheezing no fever no chills. Her T-max yesterday was 99.6 today temperature is 98.3. Her WBC count is 5.4, basic metabolic profile is normal renal profile is normal LDH on admission was 710 and C-reactive protein was 146. D-dimer 1.40 platelets are 70,000. On 03/10/2001 patient seen in follow-up on medical surgical floor, today is Remdesivir date 3, FiO2 requirement is currently at 12 L, pulse ox is between 92-96%, still congested, coughing, lung sounds reveal diminished breath sounds with some crackles at the bases. No fever. Continues on Decadron 6 mg daily, vitamins, she is on Mucinex, he hasn't had a recent chest x-ray done for a coupl e of days, her last d-dimer was on 2020 and was at 1.4, no recent LDH a CRP. She states she would like a nebulizer treatment however in view of her quit positive status she cannot have a nebulizer we will order albuterol which she can have 4 times daily scheduled and as needed when necessary every 2 hours. In addition patient is on Symbicort. On 03/15/2021 patient seen in follow-up on medical surgical floor, she continues to require high flow oxygen per 15 L high flow and are present a nonrebreather mask, she states her dyspnea is not worsened. Still coughing, and at times she is able to bring up some phlegm, her pulse ox is 91-92%, for chest pain, she is able to bring up some phlegm at times, no new chest x-ray today, yesterday she received 640 mg Tocilizumab in view of worsening hypoxia, she also remains on IV Solu-Medrol. D-dimer was 1.79 yesterday's labs, d-dimer and LDH a CRP will be ordered for tomorrow. No complaints chest pain, no hemoptysis, no fever. On 03/18/2001 patient seen in follow-up on medical surgical floor, she states she has no worsening dyspnea, although still requiring high flow oxygen at 15 L and 100% nonrebreather mask, and she seems to be breathing comfortably at this time, patient is trying to eat a cookie at the time of my examination, she has a nonrebreather mask off, and on 15 L of oxygen her pulse ox is 73%, but she looks comfortable, in the 100% nonrebreather mask will be placed back on her when she is done eating. He is calm and cooperative, she is oriented 3, no cough, no chest pain. Last chest x-ray was yesterday showing continue bilateral reticulonodular opacities consistent with COVID infection on the background of c hronic parenchymal and emphysematous changes, with no significant change from most recent chest x-ray. Her labs today show white blood cell, 19.1, hemoglobin of 14.4, CO2 is 21, the rest of the electrolytes are within normal limits, B1 is 25, creatinine 0.74, no nausea vomiting or diarrhea, patient is tolerating oral intake. She status post Toci, and she remains on Solu-Medrol at 40 mg every 8 h ours and prophylactic dose of Lovenox. On 03/19/2031 patient seen in follow-up on medical surgical floor, she still remains on high flow nasal cannula at 15 L and 100% nonrebreather mask, she does desaturate into the low 70s when she removes nonrebreather mask however she does not become any more short of breath, seems to be breathing very comfortably, she is currently sitting up in the chair, she is frequently reminded not to remove the nonrebreather mask, she states that she still has occasional cough with production of creamy white phlegm, no hemoptysis, no chest pain, lung sounds reveal some scattered crackles, she is alert and oriented 3, appears to be breathing quite comfortably, no new chest x-ray today, his labs reveal white blood cell count of 17.8, d-dimer is 1.73, BMP is pending, will continue current medical treatment and patient is on prophylactic dose Lovenox, remains on IV Solu-Medrol 40 mg every 8 hours, Symbicort, vitamins, and inhalers On 03/20/2021 patient is seen in follow-up on medical surgical floor, she is currently just on 15 L high flow nasal cannula, very comfortable, she is resting comfortably in bed, denies any worsening dyspnea, she does desaturate with activity, but does recover, not requiring her percent nonrebreathing mask today, she remains on IV Solu-Medrol 40 mg every 8 hours, she is on Lovenox 40 mg daily, she is on inhalers, vitamins. Today's labs have been reviewed showing white count, 12.23, no new d-dimer, electrolytes are within normal limits, BUN of 38 creatinine is 1.0. No new chest x-ray, On 03/21/2021 patient seen in follow-up on medical surgical floor, she is resting comfortably, she is currently off the nonrebreather mask, her pulse ox on 10 L per high flow nasal cannula is 90%, vital signs have been stable, no fever or chills, no worsening dyspnea, occasional congested cough, no sputum production, no chest discomfort. No nausea vomiting or diarrhea, patient continues on IV Solu-Medrol, 40 mg every 8 hours, prophylactic dose of Lovenox. No new labs today, no new chest x-ray, clinically improving On 03/22/2021 patient seen in follow-up on medical surgical floor, today she is on 10 L of oxygen her pulse ox is 92%, she still has a congested cough, and she states her chest hurts with coughing, and feels achy. Otherwise no worsening dyspnea. Sounds positive for diffuse crackles and wheezing, IV Solu-Medrol has been switched to oral prednisone, she is on Mucinex, she is on Lovenox prophylactic dose, we will obtain follow-up chest x-ray tomorrow, she's had no nausea vomiting or diarrhea. On 03/23/2001 patient seen in follow-up on medical surgical floor, she continues to have congestive cough, she states her chest wall is sore with coughing or deep breathing, she is currently on 15 L of oxygen her pulse ox is 89-94%, she is afebrile, hemodynamically she is stable, she sits in a recliner, appears to be no acute distress, she continues on oral prednisone 60 mg daily, she is receiving Mucinex on an as-needed basis, and Tessalon Perles on as-needed basis for her cough, she continues on Lovenox 40 mg her last d-dimer was 1.73, no hemoptysis, Restoril labs have been reviewed from yesterday, no new subtle labs were today. Today's chest x-ray showed no change in the appearance of COVID pneumonia On 03/25/2021 patient seen in follow-up on medical surgical floor, she looks comfortable, resting comfortably in the chair, she is currently on 12 L of oxygen however her pulse ox is a 83-86%, no increased work of breathing, her FiO2 was increased to 15 L, occasional mildly congested cough, no phlegm production. Patient remains on inhalers, and she is on prednisone 60 mg daily, she is receiving Tessalon Perles, she is on prophylactic dose of Lovenox, taste follow-up chest x-ray shows continued bilateral reticulonodular multifocal opacities, without significant change. Today's labs have been reviewed, d-dimer is 1.15, troponin is less than 0.012. She is breathing comfortably. Objective - Vital Signs Vital signs: Vital Signs Temp 98.6 F 03/25/21 14:00 Pulse 83 03/25/21 14:00 Resp 16 03/25/21 14:00 BP 108/67 03/25/21 14:00 Pulse Ox 92 L 03/25/21 14:00 Intake & Output 03/24/21 03/25/21 03/25/21 18:59 06:59 18:59 Other: Voiding Method Bedside Commode # Voids 4 3 # Bowel Movements 3 1 - Exam GENERAL EXAM: Alert, pleasant, 70-year-old white female patient currently on 12 L of oxygen and patient is satting at around 83-86% comfortable in no apparent distress. Not requiring nonrebreather mask HEAD: Normocephalic/atraumatic. EYES: Normal reaction of pupils, equal size. Conjunctiva pink, sclera white. NOSE: Clear with pink turbinates. THROAT: No erythema or exudates. NECK: No masses, no JVD, no thyroid enlargement, no adenopathy. CHEST: No chest wall deformity. Symmetrical expansion. LUNGS: Equal air entry with his crackles and rhonchi CVS: Regular rate and rhythm, normal S1 and S2, no gallops, no murmurs, no rubs ABDOMEN: Soft, nontender. No hepatosplenomegaly, normal bowel sounds, no guarding or rigidity. EXTREMITIES: No clubbing, no edema, no cyanosis, 2+ pulses and upper and lower extremities. MUSCULOSKELETAL: Muscle strength and tone normal. Patient has deformity of the right arm, with history of multiple previous surgeries, extensive bone and nerve damage SPINE: No scoliosis or deformity SKIN: No rashes CENTRAL NERVOUS SYSTEM: Alert and oriented -3. No focal deficits, tone is normal in all 4 extremities. PSYCHIATRIC: Alert and oriented -3. Appropriate affect. Intact judgment and insight. - Labs CBC & Chem 7: 03/24/21 06:45 03/24/21 06:45 Labs: Abnormal Lab Results - Last 24 Hours (Table) 03/24/21 Range/Units 18:12 D-Dimer 1.15 H (<0.60) mg/L FEU Assessment and Plan Plan: Assessment: #1. Acute hypoxic respiratory failure related to acute COVID 19 pneumonia, with onset of symptoms within 1 week of presentation, patient was started on Remdesivir on 03/08/2021 however her hypoxia had progressed and we stopped of Remdesivir and gave Toci on 03/14/2021 #2. Advanced COPD, used to wear home oxygen in the past, but most recently has not required it #3. Osteoarthritis #4. History of hepatitis C, treated with hormone #5. Former smoker #6. History of multiple surgeries involving her right wrist, with extensive joint and nerve damage. Patient was recommended to have right upper arm amputation however she opted against amputation #7. Fibromyalgia #8. Depression #9. Increased d-dimer without CT evidence of pulmonary embolism Plan: Continue prednisone Continue current dose Lovenox Inhalers, vitamins, chest x-ray has been reviewed, today's labs have been reviewed, echocardiogram was noted, troponin is negative No worsening dyspnea, however still requiring high flow oxygen Not ready for discharge yet Continue to monitor for signs of any worsening dyspnea or hypoxia I performed a history & physical examination of the patient and discussed their management with my nurse practitioner, Lucia Kinsey. I reviewed the nurse practitioner's note and agree with the documented findings and plan of care. Lung sounds are positive for diminished breath sounds with bilateral crackles. The findings and the impression was discussed with the patient. I attest to the documentation by the nurse practitioner. Time with Patient: Less than 30
[2021-03-25] MEDS: traZODone HCL 100 MG TAB PO SCH (20:40)
[2021-03-25] MEDS: risperiDONE 2 MG TAB PO SCH (20:40)
[2021-03-25] MEDS: MELATONIN 5 MG TABLET PO PRN (20:40)
[2021-03-26] MEDS: LEVOTHYROXINE 50 MCG TAB PO SCH (05:45)
[2021-03-26] MEDS: ENOXAPARIN 40 MG/0.4 ML SYRINGE SQ SCH (07:29)
[2021-03-26] MEDS: METOPROLOL TARTRATE 25 MG TAB PO SCH ×2 (07:30→21:19)
[2021-03-26] MEDS: GABAPENTIN 400 MG CAP PO SCH ×3 (07:30→21:20)
[2021-03-26] MEDS: busPIRone HCl 10 MG TAB PO SCH ×2 (07:30→21:20)
[2021-03-26] MEDS: SERTRALINE 100 MG TAB PO SCH (07:30)
[2021-03-26] MEDS: guaiFENesin 600 MG TABLET.ER PO SCH ×2 (07:30→21:20)
[2021-03-26] MEDS: lisinopriL 20 MG TAB PO SCH ×2 (07:30→07:45)
[2021-03-26] MEDS: predniSONE 20 MG TAB PO SCH (07:31)
[2021-03-26] MEDS: hydroCHLOROthiazide 25 MG TAB PO SCH ×2 (07:31→07:44)
[2021-03-26] MEDS: ASCORBIC ACID 500 MG TAB PO SCH (07:31)
[2021-03-26] MEDS: CALCIUM CARBONATE 500 MG CHEWABLE PO SCH (07:31)
[2021-03-26] MEDS: amLODIPine 10 MG TAB PO SCH ×2 (07:31→07:46)
[2021-03-26] MEDS: ATORVASTATIN 10 MG TAB PO SCH (07:31)
[2021-03-26] MEDS: CHOLECALCIFEROL 25 MCG (1000 IU) TABLET PO SCH (07:32)
[2021-03-26] MEDS: BENZONATATE 100 MG CAP PO SCH ×3 (07:32→21:20)
[2021-03-26] MEDS: PANTOPRAZOLE 40 MG TABLET PO SCH (07:32)
[2021-03-26] MEDS: ISOSORBIDE MONONITRATE ER 30 MG TAB.ER.24H PO SCH (07:32)
[2021-03-26] MEDS: RALOXIFENE 60 MG TAB PO SCH (07:33)
[2021-03-26] MEDS: DOCUSATE 100 MG CAP PO SCH ×2 (07:33→21:21)
[2021-03-26] MEDS: oxyCODONE-APAP 7.5-325MG 1 EACH TAB PO PRN ×2 (07:50→21:25)
[2021-03-26] MEDS: SYMBICORT 160-4.5 MCG INHALER INHALATION SCH ×3 (09:09→21:13)
[2021-03-26] MEDS: ALBUTEROL HFA INHALER INHALATION SCH ×4 (09:09→21:13)
[2021-03-26] MEDS ORDERED: SODIUM CHLORIDE 0.9% 500 ML 500 ML IV ONE (10:10)
--- NOTE | 2021-03-26 10:13 | P.PN ---
Subjective Progress Note Date: 03/26/21 Patient was awake and alert this morning. She does not have any complaints. She denies any shortness of breath. She is currently on 15 L of oxygen via high flow nasal cannula. I checked her O2 sat personally and it was around 88-89%. Chest x-ray from yesterday showed no significant improvement. Nursing staff informed me that her blood pressure was borderline low this morning and a manual recheck showed 85/45. Objective - Vital Signs Vital signs: Vital Signs Temp 97.5 F L 03/26/21 05:50 Pulse 97 03/26/21 07:41 Resp 18 03/26/21 05:50 BP 103/67 03/26/21 07:41 Pulse Ox 92 L 03/26/21 05:50 Intake & Output 03/25/21 03/26/21 03/26/21 18:59 06:59 18:59 Output Total 2 1 Balance -2 -1 Output: Stool 2 1 Other: Voiding Method Bedside Commode # Voids 3 3 - Exam General: The patient is awake and alert, in no distress Eye: there is normal conjunctiva bilaterally. Neck: The neck is supple, there is no JVD. Cardiovascular: Normal S1-S2, no S3-S4, no murmurs. Respiratory: Lungs clear to auscultation bilaterally Gastrointestinal: Abdomen is soft, nontender Musculoskeletal: There is no pedal edema. Neurological:. Speech is normal. Skin: Skin is warm and dry - Labs CBC & Chem 7: 03/24/21 06:45 03/24/21 06:45 Assessment and Plan Assessment: This is a 70-year-old female with past medical history noted below who presented to the emergency room originally with worsening cough, shortness of breath, and fatigue. Patient was evaluated in the ER and admitted to the hospital for further management of her medical problems noted below. COVID pneumonitis with acute hypoxic respiratory failure Underlying COPD with history of prolonged tobacco abuse -Continue Vit C, Vit D, Melatonin, on Lovenox -Patient received Remdesivir and Toci as ordered by pulmonology -Currently on oxygen 15 L high flow , wean off as tolerated -Goal O2 sat 88-90% -CT angiogram on presentation negative for PE -Pulmonary consult appreciated input. Patient received IV Solu-Medrol 40 mg every 8 hours for one week then transitioned to oral prednisone 60 mg daily with a plan for slow taper course -Incentive spirometer at bedside and I instructed nursing staff to assist the patient do incentive spirometer every hour -Repeat chest x-ray showed no significant changes -Continue albuterol inhaler every 6 hours, Symbicort twice daily, Mucinex and Tessalon Perles Chest pain -Atypical in nature and mostly musculoskeletal and easily reproducible on exam. Pain improved with ibuprofen -12-lead EKG showed no acute ischemic changes. Troponin was negative -Patient was seen and evaluated by cardiology. Echocardiogram showed preserved ejection fraction with no significant valvular abnormalities Lactic acidosis -On presentation now resolved Thrombocytopenia -Resolved Chronic conditions: COPD, hypertension, hyperlipidemia, hypothyroidism -Continue with home medications Essential hypertension: -Blood pressure borderline low. Discontinue amlodipine and hydrochlorothiazide. Continue metoprolol and Imdur. Patient will receive 500 mL IV bolus today to improve her blood pressure. I had a prolonged discussion with the patient and her daughter over the phone regarding goals of care. We discussed hospice philosophy and comfort care. Patient and her daughter are not interested in this time and would like to continue current management. I answered all their questions to satisfaction. DVT prophylaxis -Lovenox CODE STATUS: Full Code Discussed with: patient Anticipated discharge date: 3-[address]: Home versus rehab, pending clinical progression
[2021-03-26] MEDS ORDERED: MAG HYDROX/AL HYDROX/SIMETH 30 ML CUP PO PRN (12:15)
--- NOTE | 2021-03-26 12:28 | P.PN ---
Subjective HISTORY OF PRESENTING ILLNESS This is a pleasant 70-year-old female past medical history significant for COPD, former smoker(smoked 1-1.5ppd, quit in 2019) Hypertension, hyperlipidemia, hypothyroidism, alcohol dependence (drinks 3-4 beers per day). . 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 We have been asked to see in consultation for chest pain. Patient presents emergency department 03/07/21, with complaints of cough, shortness of breath, and fatigue. She had her symptoms for about a week, her daughter was recently tested positive for COVID. Patient found to be COVID-19 positive. She also reports a cough with productive gray, a nd plan, bodyaches, subjective fevers, diarrhea, decreased appetite. On presentation to the emergency room she was hypoxic 89% on room air. Patient states she started having chest pain early afternoon yesterday 03/24/21. It was left sided, sharp, non-radiating, and exertional. She states it lasted all day. She was given Ibuprofen that did not help her pain. She was then given Percocet around 6:00pm at that helped relieved her chest pain. Deep breathing and walking to the bathroom worsens her pain. She states that she has had similar chest pain prior to COVID-19 infection. She also endorses shortness of breath while sleeping at home, prior to Covid-19 she does occasionally wake up short of br eath, she sleeps with 2 pillows. She denies family history of cardiac disease. Mother had a stroke in her 70s. She denies history of diabetes, RI or stroke. Patient seen and examined at bedside, with no complaints Laboratory data reviewed, troponin negative 1, d-dimer 1.15, WBC 10.3, hemoglobin 12.7, platelets 107, sodium 137, potassium 4.3, serum creatinine 0.82. Current home cardiac medications include lisinopril 40 mg daily, atorvastatin 10 mg daily, amlodipine 5 mg daily. 03/26/2021 Patient seen and evaluated resting comfortably lying flat in bed in no acute distress. She feels as though her breathing at rest is improving however mild activity continues to cause her dyspnea. She has no symptoms of chest discomfort. Blood pressure 89/54 heart rate 88 afebrile maintaining oxygen sa turation on high flow nasal cannula. Echocardiogram obtained reveals preserved LV systolic function with ejection fraction 55-60%. PHYSICAL EXAMINATION CONSTITUTIONAL: No apparent distress. ASSESSMENT Chest pain, atypical, troponin negative x 1, EKG with no evidce of ischemia. Acute hypoxic respiratory failure related acute COVID-19 COVID-19 COPD History of Hepatitis C Former nicotine dependence Hypertension Hyperlipidemia Alcohol dependence Hypothyroidism PLAN Ongoing treatment for COVID-19. No evidence of segmental wall motion abnormalities. Troponins negative. Follow-up in the outpatient setting once infection has resolved for further cardiac testing. We will follow along as needed, please call with further questions or concerns. Nurse Practitioner note has been reviewed, I agree with a documented findings and plan of care. Patient was seen and examined. Objective - Vital Signs Vital signs: Vital Signs Temp 96.0 F L 03/26/21 10:00 Pulse 88 03/26/21 10:00 Resp 16 03/26/21 10:00 BP 89/54 03/26/21 10:00 Pulse Ox 98 03/26/21 10:00 Intake & Output 03/25/21 03/26/21 03/26/21 18:59 06:59 18:59 Output Total 2 1 Balance -2 -1 Output: Stool 2 1 Other: Voiding Method Bedside Commode # Voids 3 3 - Labs CBC & Chem 7: 03/24/21 06:45 03/24/21 06:45
--- NOTE | 2021-03-26 14:30 | P.PN ---
Subjective Progress Note Date: 03/26/21 Principal diagnosis: COVID pneumonia. On 03/20/2021 patient is seen in follow-up on medical surgical floor, she is currently just on 15 L high flow nasal cannula, very comfortable, she is resting comfortably in bed, denies any worsening dyspnea, she does desaturate with activity, but does recover, not requiring her percent nonrebreathing mask today, she remains on IV Solu-Medrol 40 mg every 8 hours, she is on Lovenox 40 mg daily, she is on inhalers, vitamins. Today's labs have been reviewed showing white count, 12.23, no new d-dimer, electrolytes are within normal limits, BUN of 38 creatinine is 1.0. No new chest x-ray, On 03/21/2021 patient seen in follow-up on medical surgical floor, she is resting comfortably, she is currently off the nonrebreather mask, her pulse ox on 10 L per high flow nasal cannula is 90%, vital signs have been stable, no fever or chills, no worsening dyspnea, occasional congested cough, no sputum production, no chest discomfort. No nausea vomiting or diarrhea, patient continues on IV Solu-Medrol, 40 mg every 8 hours, prophylactic dose of Lovenox. No new labs today, no new chest x-ray, clinically improving On 03/22/2021 patient seen in follow-up on medical surgical floor, today she is on 10 L of oxygen her pulse ox is 92%, she still has a congested cough, and she states her chest hurts with coughing, and feels achy. Otherwise no worsening dyspnea. Sounds positive for diffuse crackles and wheezing, IV Solu-Medrol has been switched to oral prednisone, she is on Mucinex, she is on Lovenox prophylactic dose, we will obtain follow-up chest x-ray tomorrow, she's had no nausea vomiting or diarrhea. On 03/23/2001 patient seen in follow-up on medical surgical floor, she continues to have congestive cough, she states her chest wall is sore with coughing or deep breathing, she is currently on 15 L of oxygen her pulse ox is 89-94%, she is afebrile, hemodynamically she is stable, she sits in a recliner, appears to be no acute distress, she continues on oral prednisone 60 mg daily, she is receiving Mucinex on an as-needed basis, and Tessalon Perles on as-needed basis for her cough, she continues on Lovenox 40 mg her last d-dimer was 1.73, no hemoptysis, Restoril labs have been reviewed from yesterday, no new subtle labs were today. Today's chest x-ray showed no change in the appearance of COVID pneumonia On 03/25/2021 patient seen in follow-up on medical surgical floor, she looks comfortable, resting comfortably in the chair, she is currently on 12 L of oxygen however her pulse ox is a 83-86%, no increased work of breathing, her FiO2 was increased to 15 L, occasional mildly congested cough, no phlegm production. Patient remains on inhalers, and she is on prednisone 60 mg daily, she is receiving Tessalon Perles, she is on prophylactic dose of Lovenox, taste follow-up chest x-ray shows continued bilateral reticulonodular multifocal opacities, without significant change. Today's labs have been reviewed, d-dimer is 1.15, troponin is less than 0.012. She is breathing comfortably. Progress note dated 03/26/2021. Currently, the patient seen today in room 483. Currently, she is on 15 L high flow nasal cannula. Her saturations were excellent, and we decided to turn the oxygen down to 12 L high flow nasal cannula. We also made sure the nurses new not to increase her flow rates on the oxygen, if she clinically looks stable. In essence, nor the saturations if the patient does not appear to be air hungry or anything like that. No new labs today to report. Chest x-ray from March 25 shows bilateral reticular nodular opacities, without significant change. Objective - Vital Signs Vital signs: Vital Signs Temp 96.0 F L 03/26/21 10:00 Pulse 88 03/26/21 10:00 Resp 16 03/26/21 10:00 BP 89/54 03/26/21 10:00 Pulse Ox 98 03/26/21 10:00 Intake & Output 03/25/21 03/26/21 03/26/21 18:59 06:59 18:59 Output Total 2 1 Balance -2 -1 Output: Stool 2 1 Other: Voiding Method Bedside Commode # Voids 3 3 - Exam No acute distress, oriented 3. Initially on 15 L high flow oxygen, with excellent saturations, turned down at 12 L. HEENT examination is grossly unremarkable. Neck supple. Full range of motion. No adenopathy thyromegaly or neck vein distention. Cardiovascular examination reveals regular rhythm rate. S1-S2 normal. No S3 or S4. No discernible murmur noted. Heart sounds are distant. Heart rate 88 bpm. Lungs reveal bilateral rhonchi and crackles. Breath sounds equal bilaterally. No wheezes. Saturations are at 98%. Abdomen soft bowel sounds are heard. No masses or tenderness. Extremities are intact. No cyanosis clubbing or edema. Skin is without rash or lesion. Neurologic examination is brief but nonfocal. - Labs CBC & Chem 7: 03/24/21 06:45 03/24/21 06:45 Assessment and Plan Assessment: Acute hypoxemic respiratory failure, secondary to COVID 19 pneumonia. Advanced COPD. Osteoarthritis. History of hepatitis C. Prior history of tobacco use. Fibromyalgia. Depression. No evidence of pulmonary embolism on CT angiogram, despite an elevated d-dimer. History of multiple surgeries, involving the right wrist. Plan: Plan dated 03/26/2021. We asked the nurses to continue to wean down the FiO2, since her saturations remain excellent. We turned her down from 15 L high flow, to 12 L high flow. We encourage the nurses to continue to titrate the oxygen down. The patient was initially given REM, but then that was stopped in favor of TOCI, when her ox ygenation worsened. The patient's other medications are appropriate. She continues on vitamin C, vitamin D3, Symbicort, zinc, Lovenox, and prednisone. Additional recommendations and suggestions are forthcoming. Prognosis is guarded. We will continue to follow and make recommendations where appropriate. Time with Patient: Less than 30
[2021-03-26] MEDS: MELATONIN 5 MG TABLET PO PRN (21:19)
[2021-03-26] MEDS: traZODone HCL 100 MG TAB PO SCH (21:20)
[2021-03-26] MEDS: risperiDONE 2 MG TAB PO SCH (21:20)
[2021-03-27] MEDS: oxyCODONE-APAP 7.5-325MG 1 EACH TAB PO PRN ×3 (05:57→21:28)
[2021-03-27] MEDS: LEVOTHYROXINE 50 MCG TAB PO SCH (05:57)
[2021-03-27] MEDS: guaiFENesin 600 MG TABLET.ER PO SCH ×2 (09:10→21:29)
[2021-03-27] MEDS: DOCUSATE 100 MG CAP PO SCH ×2 (09:10→21:30)
[2021-03-27] MEDS: ENOXAPARIN 40 MG/0.4 ML SYRINGE SQ SCH (09:10)
[2021-03-27] MEDS: PANTOPRAZOLE 40 MG TABLET PO SCH (09:10)
[2021-03-27] MEDS: GABAPENTIN 400 MG CAP PO SCH ×3 (09:10→21:30)
[2021-03-27] MEDS: RALOXIFENE 60 MG TAB PO SCH (09:10)
[2021-03-27] MEDS: ATORVASTATIN 10 MG TAB PO SCH (09:10)
[2021-03-27] MEDS: METOPROLOL TARTRATE 25 MG TAB PO SCH ×2 (09:10→21:29)
[2021-03-27] MEDS: ASCORBIC ACID 500 MG TAB PO SCH (09:10)
[2021-03-27] MEDS: SERTRALINE 100 MG TAB PO SCH (09:11)
[2021-03-27] MEDS: CALCIUM CARBONATE 500 MG CHEWABLE PO SCH (09:11)
[2021-03-27] MEDS: CHOLECALCIFEROL 25 MCG (1000 IU) TABLET PO SCH (09:11)
[2021-03-27] MEDS: predniSONE 20 MG TAB PO SCH (09:11)
[2021-03-27] MEDS: risperiDONE 2 MG TAB PO SCH (09:11)
[2021-03-27] MEDS: BENZONATATE 100 MG CAP PO SCH ×3 (09:11→21:30)
[2021-03-27] MEDS: busPIRone HCl 10 MG TAB PO SCH ×2 (09:11→21:30)
[2021-03-27] MEDS: SYMBICORT 160-4.5 MCG INHALER INHALATION SCH ×2 (09:15→21:10)
[2021-03-27] MEDS: ALBUTEROL HFA INHALER INHALATION SCH ×4 (09:15→21:10)
[2021-03-27 10:25] LABS: African American GFR (CKD) 85 (>60 ml/min/1.73 sqM); Anion Gap 10 mmol/L; Blood Urea Nitrogen 27 mg/dL (7-17); C Reactive Protein <0.5 mg/dL (<1.0); Calcium 9.1 mg/dL (8.4-10.2); Carbon Dioxide 21 mmol/L (22-30); Chloride 107 mmol/L (98-107); Glucose 152 mg/dL (74-99); LDH 677 U/L (313-618); Non-African American GFR(CKD) 73 (>60 ml/min/1.73 sqM); Potassium 3.7 mmol/L (3.5-5.1); Sodium 138 mmol/L (137-145)
--- NOTE | 2021-03-27 12:55 | P.PN ---
Subjective Progress Note Date: 03/27/21 Patient was resting this morning. No acute events overnight reported by nursing staff. She is currently on 12 L of oxygen. Objective - Vital Signs Vital signs: Vital Signs Temp 97.8 F 03/27/21 09:56 Pulse 86 03/27/21 09:56 Resp 20 03/27/21 09:56 BP 129/79 03/27/21 09:56 Pulse Ox 93 L 03/27/21 09:56 Intake & Output 03/26/21 03/27/21 03/27/21 18:59 06:59 18:59 Output Total 4 1 Balance -4 -1 Output: Urine 3 Stool 1 1 Other: Voiding Method Bedside Commode Bedside Commode # Voids 5 1 # Bowel Movements 3 3 - Exam General: The patient is awake and alert, in no distress Eye: there is normal conjunctiva bilaterally. Neck: The neck is supple, there is no JVD. Cardiovascular: Normal S1-S2, no S3-S4, no murmurs. Respiratory: Lungs clear to auscultation bilaterally Gastrointestinal: Abdomen is soft, nontender Musculoskeletal: There is no pedal edema. Neurological:. Speech is normal. Skin: Skin is warm and dry - Labs CBC & Chem 7: 03/24/21 06:45 03/27/21 09:26 Labs: Abnormal Lab Results - Last 24 Hours (Table) 03/27/21 Range/Units 09:26 Carbon Dioxide 21 L (22-30) mmol/L BUN 27 H (7-17) mg/dL Glucose 152 H (74-99) mg/dL Lactate Dehydrogenase 677 H (313-618) U/L Assessment and Plan Assessment: This is a 70-year-old female with past medical history noted below who presented to the emergency room originally with worsening cough, shortness of breath, and fatigue. Patient was evaluated in the ER and admitted to the hospital for further management of her medical problems noted below. COVID pneumonitis with acute hypoxic respiratory failure Underlying COPD with history of prolonged tobacco abuse -Continue Vit C, Vit D, Melatonin, on Lovenox -Patient received Remdesivir and Toci as ordered by pulmonology -Currently on oxygen 12 L high flow, wean off as tolerated -Goal O2 sat 88-90% -CT angiogram on presentation negative for PE -Pulmonary consult appreciated input. Patient received IV Solu-Medrol 40 mg every 8 hours for one week then transitioned to oral prednisone 60 mg daily with a plan for slow taper course -Incentive spirometer at bedside to be used every hour -Repeat chest x-ray showed no significant changes -Continue albuterol inhaler every 6 hours, Symbicort twice daily, Mucinex and Tessalon Perles Chest pain -Atypical in nature and mostly musculoskeletal and easily reproducible on exam. Pain improved with ibuprofen -12-lead EKG showed no acute ischemic changes. Troponin was negative -Patient was seen and evaluated by cardiology. Echocardiogram showed preserved ejection fraction with no significant valvular abnormalities Lactic acidosis -On presentation now resolved Thrombocytopenia -Resolved Chronic conditions: COPD, hypertension, hyperlipidemia, hypothyroidism -Continue with home medications Essential hypertension: -Blood pressure borderline low. Discontinue amlodipine and hydrochlorothiazide. Continue metoprolol and Imdur. Patient will receive 500 mL IV bolus today to improve her blood pressure. During this admission, I had a prolonged discussion with the patient and her daughter over the phone regarding goals of care. We discussed hospice philosophy and comfort care. Patient and her daughter are not interested in this time and would like to continue current management. I answered all their questions to satisfaction. DVT prophylaxis -Lovenox CODE STATUS: Full Code Discussed with: patient Anticipated discharge date: To be determined Anticipated discharge place: Home versus rehab, pending clinical progression
--- NOTE | 2021-03-27 15:47 | P.PN ---
Subjective Progress Note Date: 03/27/21 Principal diagnosis: Acute hypoxic respiratory failure secondary to acute Covid 19 pneumonia This is a 70-year-old white female patient with past medical history of advanced COPD used to wear oxygen at one point, currently not on any home oxygen, former smoker, hep C treated with Harvoni, osteoarthritis, fibromyalgia, who came to the emergency department on 03/07/2021 for evaluation of cough, dyspnea, fatigue and myalgias, her symptoms have been present for approximately one week. Patient has no contact with coronavirus. In addition she has poor appetite, nausea, vomiting and diarrhea, she has anginal chest tightness without central chest pain. Chest x-ray shows diffuse moderate interstitial opacities in the left mid to lower lung and right lung base, no pleural effusion or pneumothorax. CTA chest shows bilateral opacities. Admission labs showed white blood cell, 4.5, hemoglobin 13, platelet count of 70, lymphocyte count of 0.14, d-dimer is 1.40, sodium is 137, potassium is 4.6, chloride is 103, CO2 is 18, BUN is 20, creatinine is 1.04. Plasma lactic acid is 2.7, ferritin level is 484, total bilirubin is 1.4, AST is 42, ALT is 23, alkaline phosphatase is 180, LDH is 710, CRP is 146.4, pro calcitonin level is 0.11, COVID 19 PCR. She is currently on 4 L of oxygen process between 92-95%, she is afebrile, still dyspneic, but no acute distress. Patient was started on Decadron, vitamins, and we'll start the patient on Remdesivir Patient was reevaluated today on 03/09/2021, patient remains on 6 L high flow nasal cannula, O2 sats is 91%. Patient tells me that she feels short of breath, no cough no wheezing no fever no chills. Her T-max yesterday was 99.6 today temperature is 98.3. Her WBC count is 5.4, basic metabolic profile is normal renal profile is normal LDH on admission was 710 and C-reactive protein was 146. D-dimer 1.40 platelets are 70,000. On 03/10/2001 patient seen in follow-up on medical surgical floor, today is Remdesivir date 3, FiO2 requirement is currently at 12 L, pulse ox is between 92-96%, still congested, coughing, lung sounds reveal diminished breath sounds with some crackles at the bases. No fever. Continues on Decadron 6 mg daily, vitamins, she is on Mucinex, he hasn't had a recent chest x-ray done for a coupl e of days, her last d-dimer was on 2020 and was at 1.4, no recent LDH a CRP. She states she would like a nebulizer treatment however in view of her quit positive status she cannot have a nebulizer we will order albuterol which she can have 4 times daily scheduled and as needed when necessary every 2 hours. In addition patient is on Symbicort. On 03/15/2021 patient seen in follow-up on medical surgical floor, she continues to require high flow oxygen per 15 L high flow and are present a nonrebreather mask, she states her dyspnea is not worsened. Still coughing, and at times she is able to bring up some phlegm, her pulse ox is 91-92%, for chest pain, she is able to bring up some phlegm at times, no new chest x-ray today, yesterday she received 640 mg Tocilizumab in view of worsening hypoxia, she also remains on IV Solu-Medrol. D-dimer was 1.79 yesterday's labs, d-dimer and LDH a CRP will be ordered for tomorrow. No complaints chest pain, no hemoptysis, no fever. On 03/18/2001 patient seen in follow-up on medical surgical floor, she states she has no worsening dyspnea, although still requiring high flow oxygen at 15 L and 100% nonrebreather mask, and she seems to be breathing comfortably at this time, patient is trying to eat a cookie at the time of my examination, she has a nonrebreather mask off, and on 15 L of oxygen her pulse ox is 73%, but she looks comfortable, in the 100% nonrebreather mask will be placed back on her when she is done eating. He is calm and cooperative, she is oriented 3, no cough, no chest pain. Last chest x-ray was yesterday showing continue bilateral reticulonodular opacities consistent with COVID infection on the background of c hronic parenchymal and emphysematous changes, with no significant change from most recent chest x-ray. Her labs today show white blood cell, 19.1, hemoglobin of 14.4, CO2 is 21, the rest of the electrolytes are within normal limits, B1 is 25, creatinine 0.74, no nausea vomiting or diarrhea, patient is tolerating oral intake. She status post Toci, and she remains on Solu-Medrol at 40 mg every 8 h ours and prophylactic dose of Lovenox. On 03/19/2031 patient seen in follow-up on medical surgical floor, she still remains on high flow nasal cannula at 15 L and 100% nonrebreather mask, she does desaturate into the low 70s when she removes nonrebreather mask however she does not become any more short of breath, seems to be breathing very comfortably, she is currently sitting up in the chair, she is frequently reminded not to remove the nonrebreather mask, she states that she still has occasional cough with production of creamy white phlegm, no hemoptysis, no chest pain, lung sounds reveal some scattered crackles, she is alert and oriented 3, appears to be breathing quite comfortably, no new chest x-ray today, his labs reveal white blood cell count of 17.8, d-dimer is 1.73, BMP is pending, will continue current medical treatment and patient is on prophylactic dose Lovenox, remains on IV Solu-Medrol 40 mg every 8 hours, Symbicort, vitamins, and inhalers On 03/20/2021 patient is seen in follow-up on medical surgical floor, she is currently just on 15 L high flow nasal cannula, very comfortable, she is resting comfortably in bed, denies any worsening dyspnea, she does desaturate with activity, but does recover, not requiring her percent nonrebreathing mask today, she remains on IV Solu-Medrol 40 mg every 8 hours, she is on Lovenox 40 mg daily, she is on inhalers, vitamins. Today's labs have been reviewed showing white count, 12.23, no new d-dimer, electrolytes are within normal limits, BUN of 38 creatinine is 1.0. No new chest x-ray, On 03/21/2021 patient seen in follow-up on medical surgical floor, she is resting comfortably, she is currently off the nonrebreather mask, her pulse ox on 10 L per high flow nasal cannula is 90%, vital signs have been stable, no fever or chills, no worsening dyspnea, occasional congested cough, no sputum production, no chest discomfort. No nausea vomiting or diarrhea, patient continues on IV Solu-Medrol, 40 mg every 8 hours, prophylactic dose of Lovenox. No new labs today, no new chest x-ray, clinically improving On 03/22/2021 patient seen in follow-up on medical surgical floor, today she is on 10 L of oxygen her pulse ox is 92%, she still has a congested cough, and she states her chest hurts with coughing, and feels achy. Otherwise no worsening dyspnea. Sounds positive for diffuse crackles and wheezing, IV Solu-Medrol has been switched to oral prednisone, she is on Mucinex, she is on Lovenox prophylactic dose, we will obtain follow-up chest x-ray tomorrow, she's had no nausea vomiting or diarrhea. On 03/23/2001 patient seen in follow-up on medical surgical floor, she continues to have congestive cough, she states her chest wall is sore with coughing or deep breathing, she is currently on 15 L of oxygen her pulse ox is 89-94%, she is afebrile, hemodynamically she is stable, she sits in a recliner, appears to be no acute distress, she continues on oral prednisone 60 mg daily, she is receiving Mucinex on an as-needed basis, and Tessalon Perles on as-needed basis for her cough, she continues on Lovenox 40 mg her last d-dimer was 1.73, no hemoptysis, Restoril labs have been reviewed from yesterday, no new subtle labs were today. Today's chest x-ray showed no change in the appearance of COVID pneumonia On 03/25/2021 patient seen in follow-up on medical surgical floor, she looks comfortable, resting comfortably in the chair, she is currently on 12 L of oxygen however her pulse ox is a 83-86%, no increased work of breathing, her FiO2 was increased to 15 L, occasional mildly congested cough, no phlegm production. Patient remains on inhalers, and she is on prednisone 60 mg daily, she is receiving Tessalon Perles, she is on prophylactic dose of Lovenox, taste follow-up chest x-ray shows continued bilateral reticulonodular multifocal opacities, without significant change. Today's labs have been reviewed, d-dimer is 1.15, troponin is less than 0.012. She is breathing comfortably. On 03/27/2021 patient seen in follow-up on medical surgical floor. She is currently on 12 L of oxygen, she is breathing comfortably, no chest pain, chest wall soreness has resolved, she is less congested, coughing less, seems to be quite comfortable. Her pulse ox on 12 L is 96%, and this Probably be further wean down, by signs have been stable, she's been afebrile. This had no acute events overnight Objective - Vital Signs Vital signs: Vital Signs Temp 98.0 F 03/27/21 14:00 Pulse 86 03/27/21 14:00 Resp 18 03/27/21 14:00 BP 138/80 03/27/21 14:00 Pulse Ox 96 03/27/21 14:00 Intake & Output 03/26/21 03/27/21 03/27/21 18:59 06:59 18:59 Output Total 4 1 Balance -4 -1 Weight 79.379 kg Output: Urine 3 Stool 1 1 Other: Voiding Method Bedside Commode Bedside Commode # Voids 5 1 # Bowel Movements 3 3 - Exam GENERAL EXAM: Alert, pleasant, 70-year-old white female patient currently on 12 L of oxygen and patient is satting at around 96% comfortable in no apparent distress. Not requiring nonrebreather mask HEAD: Normocephalic/atraumatic. EYES: Normal reaction of pupils, equal size. Conjunctiva pink, sclera white. NOSE: Clear with pink turbinates. THROAT: No erythema or exudates. NECK: No masses, no JVD, no thyroid enlargement, no adenopathy. CHEST: No chest wall deformity. Symmetrical expansion. LUNGS: Equal air entry with his crackles and rhonchi CVS: Regular rate and rhythm, normal S1 and S2, no gallops, no murmurs, no rubs ABDOMEN: Soft, nontender. No hepatosplenomegaly, normal bowel sounds, no guarding or rigidity. EXTREMITIES: No clubbing, no edema, no cyanosis, 2+ pulses and upper and lower extremities. MUSCULOSKELETAL: Muscle strength and tone normal. Patient has deformity of the right arm, with history of multiple previous surgeries, extensive bone and nerve damage SPINE: No scoliosis or deformity SKIN: No rashes CENTRAL NERVOUS SYSTEM: Alert and oriented -3. No focal deficits, tone is normal in all 4 extremities. PSYCHIATRIC: Alert and oriented -3. Appropriate affect. Intact judgment and insight. - Labs CBC & Chem 7: 03/24/21 06:45 03/27/21 09:26 Labs: Abnormal Lab Results - Last 24 Hours (Table) 03/27/21 Range/Units 09:26 Carbon Dioxide 21 L (22-30) mmol/L BUN 27 H (7-17) mg/dL Glucose 152 H (74-99) mg/dL Lactate Dehydrogenase 677 H (313-618) U/L Assessment and Plan Plan: Assessment: #1. Acute hypoxic respiratory failure related to acute COVID 19 pneumonia, with onset of symptoms within 1 week of presentation, patient was started on Remdesivir on 03/08/2021 however her hypoxia had progressed and we stopped of Remdesivir and gave Toci on 03/14/2021 #2. Advanced COPD, used to wear home oxygen in the past, but most recently has not required it #3. Osteoarthritis #4. History of hepatitis C, treated with hormone #5. Former smoker #6. History of multiple surgeries involving her right wrist, with extensive joint and nerve damage. Patient was recommended to have right upper arm amputation however she opted against amputation #7. Fibromyalgia #8. Depression #9. Increased d-dimer without CT evidence of pulmonary embolism Plan: Continue weaning FiO2 to keep O2 sats ratio is at 89% or above Patient seems to be improving, Vital signs have been stable, no fever or chills Continue prednisone, continue Lovenox Once the patient is down to 5 L or less of supplemental oxygen she can be considered for discharge home on home oxygen Not ready for discharge yet Continue to monitor for signs of any worsening dyspnea or hypoxia I performed a history & physical examination of the patient and discussed their management with my nurse practitioner, Lucia Kinsey. I reviewed the nurse practitioner's note and agree with the documented findings and plan of care. Lung sounds are positive for diminished breath sounds with bilateral crackles. The findings and the impression was discussed with the patient. I attest to the documentation by the nurse practitioner. Time with Patient: Less than 30
[2021-03-27] MEDS: MELATONIN 5 MG TABLET PO PRN (21:29)
[2021-03-27] MEDS: traZODone HCL 100 MG TAB PO SCH (21:30)
[2021-03-27 22:02] LABS: Ferritin 302.7 ng/mL (10.0-291.0)
[2021-03-28 01:36] LABS: Basophils # (A) 0.1 k/uL (0-0.2); Basophils % (A) 1 %; Eosinophils # (A) 0.1 k/uL (0-0.7); Eosinophils % (A) 1 %; HCT 39.6 % (34.0-46.0); Hypochromasia Slight; Lymphocytes # (A) 0.9 k/uL (1.0-4.8); Lymphocytes % (A) 8 %; MCH 31.2 pg (25.0-35.0); MCHC 32.9 g/dL (31.0-37.0); MCV 94.9 fL (80.0-100.0); Mean Platelet Volume 13.4; Monocytes # (A) 0.5 k/uL (0-1.0); Monocytes % (A) 5 %; Neutrophils # (A) 8.8 k/uL (1.3-7.7); Neutrophils % (A) 84 %; RBC 4.17 m/uL (3.80-5.40); WBC 10.4 k/uL (3.8-10.6)
[2021-03-28 02:06] LABS: Platelet Count 91 k/uL (150-450); Toxic Vacuolation Present
[2021-03-28 02:07] LABS: Crenated RBC Present; Poikilocytosis (M) Present
[2021-03-28] MEDS: LEVOTHYROXINE 50 MCG TAB PO SCH (06:25)
[2021-03-28] MEDS: ALBUTEROL HFA INHALER INHALATION SCH ×4 (07:33→20:29)
[2021-03-28] MEDS: SYMBICORT 160-4.5 MCG INHALER INHALATION SCH ×2 (07:34→20:30)
[2021-03-28 07:55] LABS: HCT 39.6 % (34.0-46.0); HGB 13.2 gm/dL (11.4-16.0); MCH 30.7 pg (25.0-35.0); MCHC 33.3 g/dL (31.0-37.0); MCV 92.1 fL (80.0-100.0); Mean Platelet Volume 9.6; RDW 13.8 % (11.5-15.5); WBC 10.6 k/uL (3.8-10.6)
[2021-03-28 08:00] LABS: Platelet Count 95 k/uL (150-450)
[2021-03-28 08:06] LABS: ALT 39 U/L (4-34); AST 30 U/L (14-36); African American GFR (CKD) >90 (>60 ml/min/1.73 sqM); Albumin 3.5 g/dL (3.5-5.0); Albumin/Globulin Ratio 1.3; Alkaline Phosphatase 62 U/L (38-126); Anion Gap 9 mmol/L; Blood Urea Nitrogen 24 mg/dL (7-17); Calcium 9.2 mg/dL (8.4-10.2); Carbon Dioxide 22 mmol/L (22-30); Chloride 109 mmol/L (98-107); Globulin 2.7 g/dL; Glucose 97 mg/dL (74-99); Non-African American GFR(CKD) 90 (>60 ml/min/1.73 sqM); Potassium 4.5 mmol/L (3.5-5.1); Sodium 140 mmol/L (137-145); Total Bilirubin 0.3 mg/dL (0.2-1.3); Total Protein 6.2 g/dL (6.3-8.2)
[2021-03-28] MEDS: oxyCODONE-APAP 7.5-325MG 1 EACH TAB PO PRN ×2 (08:11→21:52)
[2021-03-28] MEDS: CALCIUM CARBONATE 500 MG CHEWABLE PO SCH (08:11)
[2021-03-28] MEDS: predniSONE 20 MG TAB PO SCH (08:11)
[2021-03-28] MEDS: guaiFENesin 600 MG TABLET.ER PO SCH ×2 (08:11→21:51)
[2021-03-28] MEDS: METOPROLOL TARTRATE 25 MG TAB PO SCH ×2 (08:12→21:51)
[2021-03-28] MEDS: PANTOPRAZOLE 40 MG TABLET PO SCH (08:12)
[2021-03-28] MEDS: GABAPENTIN 400 MG CAP PO SCH ×3 (08:12→21:51)
[2021-03-28] MEDS: BENZONATATE 100 MG CAP PO SCH ×3 (08:12→21:51)
[2021-03-28] MEDS: SERTRALINE 100 MG TAB PO SCH (08:12)
[2021-03-28] MEDS: ATORVASTATIN 10 MG TAB PO SCH (08:12)
[2021-03-28] MEDS: RALOXIFENE 60 MG TAB PO SCH (08:12)
[2021-03-28] MEDS: ASCORBIC ACID 500 MG TAB PO SCH (08:12)
[2021-03-28] MEDS: busPIRone HCl 10 MG TAB PO SCH ×2 (08:13→21:52)
[2021-03-28] MEDS: CHOLECALCIFEROL 25 MCG (1000 IU) TABLET PO SCH (08:16)
[2021-03-28] MEDS: ENOXAPARIN 40 MG/0.4 ML SYRINGE SQ SCH (08:16)
[2021-03-28] MEDS: DOCUSATE 100 MG CAP PO SCH ×2 (08:16→21:52)
--- NOTE | 2021-03-28 11:41 | P.PN ---
Subjective Progress Note Date: 03/28/21 Patient was resting this morning. No significant change since yesterday. No acute events overnight reported by nursing staff. She is currently on 12 L of oxygen. Objective - Vital Signs Vital signs: Vital Signs Temp 98.1 F 03/28/21 10:00 Pulse 89 03/28/21 10:00 Resp 23 03/28/21 10:00 BP 135/85 03/28/21 10:00 Pulse Ox 91 L 03/28/21 10:00 Intake & Output 03/27/21 03/28/21 03/28/21 18:59 06:59 18:59 Output Total 1 1 1 Balance -1 -1 -1 Weight 79.379 kg Output: Stool 1 1 1 Other: Voiding Method Bedside Commode Bedside Commode Bedside Commode # Voids 4 3 # Bowel Movements 1 - Exam General: The patient is awake and alert, in no distress Eye: there is normal conjunctiva bilaterally. Neck: The neck is supple, there is no JVD. Cardiovascular: Normal S1-S2, no S3-S4, no murmurs. Respiratory: Lungs clear to auscultation bilaterally Gastrointestinal: Abdomen is soft, nontender Musculoskeletal: There is no pedal edema. Neurological:. Speech is normal. Skin: Skin is warm and dry - Labs CBC & Chem 7: 03/28/21 07:28 03/28/21 07:28 Labs: Abnormal Lab Results - Last 24 Hours (Table) 03/27/21 03/27/21 03/28/21 Range/Units 09:26 09:26 07:28 Plt Count 91 L 95 L (150-450) k/uL Neutrophils # 8.8 H 8.7 H (1.3-7.7) k/uL Lymphocytes # 0.9 L (1.0-4.8) k/uL Chloride (98-107) mmol/L BUN (7-17) mg/dL Ferritin 302.7 H (10.0-291.0) ng/mL ALT (4-34) U/L Total Protein (6.3-8.2) g/dL 03/28/21 Range/Units 07:28 Plt Count (150-450) k/uL Neutrophils # (1.3-7.7) k/uL Lymphocytes # (1.0-4.8) k/uL Chloride 109 H (98-107) mmol/L BUN 24 H (7-17) mg/dL Ferritin (10.0-291.0) ng/mL ALT 39 H (4-34) U/L Total Protein 6.2 L (6.3-8.2) g/dL Assessment and Plan Assessment: This is a 70-year-old female with past medical history noted below who presented to the emergency room originally with worsening cough, shortness of breath, and fatigue. Patient was evaluated in the ER and admitted to the hospital for further management of her medical problems noted below. COVID pneumonitis with acute hypoxic respiratory failure Underlying COPD with history of prolonged tobacco abuse -Continue Vit C, Vit D, Melatonin, on Lovenox -Patient received Remdesivir and Toci as ordered by pulmonology -Currently on oxygen 12 L high flow, wean off as tolerated -Goal O2 sat 88-90% -CT angiogram on presentation negative for PE -Pulmonary consult appreciated input. Patient received IV Solu-Medrol 40 mg every 8 hours for one week then transitioned to oral prednisone 60 mg daily with a plan for slow taper course -Incentive spirometer at bedside to be used every hour -Repeat chest x-ray showed no significant changes -Continue albuterol inhaler every 6 hours, Symbicort twice daily, Mucinex and Tessalon Perles Chest pain -Atypical in nature and mostly musculoskeletal and easily reproducible on exam. Pain improved with ibuprofen -12-lead EKG showed no acute ischemic changes. Troponin was negative -Patient was seen and evaluated by cardiology. Echocardiogram showed preserved ejection fraction with no significant valvular abnormalities Lactic acidosis -On presentation now resolved Thrombocytopenia -Resolved Chronic conditions: COPD, hypertension, hyperlipidemia, hypothyroidism -Continue with home medications Essential hypertension: -Blood pressure borderline low. Discontinue amlodipine and hydrochlorothiazide. Continue metoprolol and Imdur. Patient will receive 500 mL IV bolus today to improve her blood pressure. During this admission, I had a prolonged discussion with the patient and her daughter over the phone regarding goals of care. We discussed hospice philosophy and comfort care. Patient and her daughter are not interested in this time and would like to continue current management. I answered all their questions to satisfaction. DVT prophylaxis -Lovenox CODE STATUS: Full Code Discussed with: patient Anticipated discharge date: To be determined Anticipated discharge place: Home versus rehab, pending clinical progression
--- NOTE | 2021-03-28 15:29 | P.PN ---
Subjective Progress Note Date: 03/28/21 Principal diagnosis: COVID pneumonia. On 03/20/2021 patient is seen in follow-up on medical surgical floor, she is currently just on 15 L high flow nasal cannula, very comfortable, she is resting comfortably in bed, denies any worsening dyspnea, she does desaturate with activity, but does recover, not requiring her percent nonrebreathing mask today, she remains on IV Solu-Medrol 40 mg every 8 hours, she is on Lovenox 40 mg daily, she is on inhalers, vitamins. Today's labs have been reviewed showing white count, 12.23, no new d-dimer, electrolytes are within normal limits, BUN of 38 creatinine is 1.0. No new chest x-ray, On 03/21/2021 patient seen in follow-up on medical surgical floor, she is resting comfortably, she is currently off the nonrebreather mask, her pulse ox on 10 L per high flow nasal cannula is 90%, vital signs have been stable, no fever or chills, no worsening dyspnea, occasional congested cough, no sputum production, no chest discomfort. No nausea vomiting or diarrhea, patient continues on IV Solu-Medrol, 40 mg every 8 hours, prophylactic dose of Lovenox. No new labs today, no new chest x-ray, clinically improving On 03/22/2021 patient seen in follow-up on medical surgical floor, today she is on 10 L of oxygen her pulse ox is 92%, she still has a congested cough, and she states her chest hurts with coughing, and feels achy. Otherwise no worsening dyspnea. Sounds positive for diffuse crackles and wheezing, IV Solu-Medrol has been switched to oral prednisone, she is on Mucinex, she is on Lovenox prophylactic dose, we will obtain follow-up chest x-ray tomorrow, she's had no nausea vomiting or diarrhea. On 03/23/2001 patient seen in follow-up on medical surgical floor, she continues to have congestive cough, she states her chest wall is sore with coughing or deep breathing, she is currently on 15 L of oxygen her pulse ox is 89-94%, she is afebrile, hemodynamically she is stable, she sits in a recliner, appears to be no acute distress, she continues on oral prednisone 60 mg daily, she is receiving Mucinex on an as-needed basis, and Tessalon Perles on as-needed basis for her cough, she continues on Lovenox 40 mg her last d-dimer was 1.73, no hemoptysis, Restoril labs have been reviewed from yesterday, no new subtle labs were today. Today's chest x-ray showed no change in the appearance of COVID pneumonia On 03/25/2021 patient seen in follow-up on medical surgical floor, she looks comfortable, resting comfortably in the chair, she is currently on 12 L of oxygen however her pulse ox is a 83-86%, no increased work of breathing, her FiO2 was increased to 15 L, occasional mildly congested cough, no phlegm production. Patient remains on inhalers, and she is on prednisone 60 mg daily, she is receiving Tessalon Perles, she is on prophylactic dose of Lovenox, taste follow-up chest x-ray shows continued bilateral reticulonodular multifocal opacities, without significant change. Today's labs have been reviewed, d-dimer is 1.15, troponin is less than 0.012. She is breathing comfortably. Progress note dated 03/26/2021. Currently, the patient seen today in room 483. Currently, she is on 15 L high flow nasal cannula. Her saturations were excellent, and we decided to turn the oxygen down to 12 L high flow nasal cannula. We also made sure the nurses new not to increase her flow rates on the oxygen, if she clinically looks stable. In essence, nor the saturations if the patient does not appear to be air hungry or anything like that. No new labs today to report. Chest x-ray from March 25 shows bilateral reticular nodular opacities, without significant change. Progress note dated 03/28/2021. Currently, the patient is seen in room 483. She's been weaned down to 13 L high flow nasal O2. Saturations are 95%. Temperature heart rate respiratory rate and blood pressure are all normal. Current labs include a white count 10.6, hemoglobin 13.2, hematocrit 39.6, and platelet count of 95,000. Sodium 140, potassium 4.5, chlorides 109, CO2 22, anion gap 9, BUN 24, and creatinine 0.64. Microbiology is currently negative are pending. No recent chest x-ray to report. Objective - Vital Signs Vital signs: Vital Signs Temp 97.8 F 03/28/21 14:00 Pulse 80 03/28/21 14:00 Resp 20 03/28/21 14:00 BP 129/78 03/28/21 14:00 Pulse Ox 95 03/28/21 14:00 Intake & Output 03/27/21 03/28/21 03/28/21 18:59 06:59 18:59 Output Total 1 1 1 Balance -1 -1 -1 Weight 79.379 kg Output: Stool 1 1 1 Other: Voiding Method Bedside Commode Bedside Commode Bedside Commode # Voids 4 3 # Bowel Movements 1 - Exam No acute distress, oriented 3. Currently on 13 L high flow nasal O2, with excellent saturations. HEENT examination is grossly unremarkable. Neck supple. Full range of motion. No adenopathy thyromegaly or neck vein distention. Cardiovascular examination reveals regular rhythm rate. S1-S2 normal. No S3 or S4. No discernible murmur noted. Heart sounds are distant. Heart rate 80 bpm. Lungs reveal bilateral rhonchi and crackles. Breath sounds equal bilaterally. No wheezes. Saturations are at 95%. Abdomen soft bowel sounds are heard. No masses or tenderness. Extremities are intact. No cyanosis clubbing or edema. Skin is without rash or lesion. Neurologic examination is brief but nonfocal. - Labs CBC & Chem 7: 03/28/21 07:28 03/28/21 07:28 Labs: Abnormal Lab Results - Last 24 Hours (Table) 03/27/21 03/27/21 03/28/21 Range/Units 09:26 09:26 07:28 Plt Count 91 L 95 L (150-450) k/uL Neutrophils # 8.8 H 8.7 H (1.3-7.7) k/uL Lymphocytes # 0.9 L (1.0-4.8) k/uL Chloride (98-107) mmol/L BUN (7-17) mg/dL Ferritin 302.7 H (10.0-291.0) ng/mL ALT (4-34) U/L Total Protein (6.3-8.2) g/dL 03/28/21 Range/Units 07:28 Plt Count (150-450) k/uL Neutrophils # (1.3-7.7) k/uL Lymphocytes # (1.0-4.8) k/uL Chloride 109 H (98-107) mmol/L BUN 24 H (7-17) mg/dL Ferritin (10.0-291.0) ng/mL ALT 39 H (4-34) U/L Total Protein 6.2 L (6.3-8.2) g/dL Assessment and Plan Assessment: Acute hypoxemic respiratory failure, secondary to COVID 19 pneumonia. Advanced COPD. Osteoarthritis. History of hepatitis C. Prior history of tobacco use. Fibromyalgia. Depression. No evidence of pulmonary embolism on CT angiogram, despite an elevated d-dimer. History of multiple surgeries, involving the right wrist. Plan: Plan dated 03/26/2021. We asked the nurses to continue to wean down the FiO2, since her saturations remain excellent. We turned her down from 15 L high flow, to 12 L high flow. We encourage the nurses to continue to titrate the oxygen down. The patient was initially given REM, but then that was stopped in favor of TOCI, when her oxygenation worsened. The patient's other medications are appropriate. She continues on vitamin C, vitamin D3, Symbicort, zinc, Lovenox, and prednisone. Additional recommendations and suggestions are forthcoming. Prognosis is guarded. We will continue to follow and make recommendations where appropriate. Plan dated 03/28/2021. Currently, the patient seemed be doing well. She's been turned down to between 12-13 m high flow nasal O2. Saturations are excellent. We will order a chest x-ray for tomorrow. Her last chest x-ray was done on March 25. Additional recommendations and suggestions are forthcoming. Prognosis is guarded. We will continue to follow the patient and make recommendations were appropriate. The patient continues on appropriate medications including vitamin C, vitamin D3, zinc, Symbicort, Lovenox, and prednisone. Time with Patient: Less than 30
[2021-03-28 16:12] LABS: Eosinophils # (M) 0.11 k/uL (0-0.7); Lymphocytes # (M) 1.59 k/uL (1.0-4.8); Monocytes # (M) 0.42 k/uL (0-1.0); Neutrophils # (M) 8.48 k/uL (1.3-7.7); Neutrophils % (M) 80 %; Nucleated Red Blood Cells 0 /100 WBC (0-0); Total Cells Counted 100
[2021-03-28 16:14] LABS: Poikilocytosis (M) Present
[2021-03-28] MEDS: traZODone HCL 100 MG TAB PO SCH (21:52)
[2021-03-28] MEDS: risperiDONE 2 MG TAB PO SCH (21:52)
[2021-03-29] MEDS: LEVOTHYROXINE 50 MCG TAB PO SCH (06:17)
[2021-03-29] MEDS: ALBUTEROL HFA INHALER INHALATION SCH ×4 (07:14→20:22)
[2021-03-29] MEDS: SYMBICORT 160-4.5 MCG INHALER INHALATION SCH ×2 (07:15→20:23)
[2021-03-29] MEDS: GABAPENTIN 400 MG CAP PO SCH ×3 (07:43→21:22)
[2021-03-29] MEDS: busPIRone HCl 10 MG TAB PO SCH ×2 (07:44→21:23)
[2021-03-29] MEDS: SERTRALINE 100 MG TAB PO SCH (07:44)
[2021-03-29] MEDS: CALCIUM CARBONATE 500 MG CHEWABLE PO SCH (07:44)
[2021-03-29] MEDS: ATORVASTATIN 10 MG TAB PO SCH (07:44)
[2021-03-29] MEDS: CHOLECALCIFEROL 25 MCG (1000 IU) TABLET PO SCH (07:44)
[2021-03-29] MEDS: METOPROLOL TARTRATE 25 MG TAB PO SCH ×2 (07:44→21:23)
[2021-03-29] MEDS: PANTOPRAZOLE 40 MG TABLET PO SCH (07:44)
[2021-03-29] MEDS: ASCORBIC ACID 500 MG TAB PO SCH (07:44)
[2021-03-29] MEDS: predniSONE 20 MG TAB PO SCH (07:45)
[2021-03-29] MEDS: BENZONATATE 100 MG CAP PO SCH ×3 (07:45→21:22)
[2021-03-29] MEDS: DOCUSATE 100 MG CAP PO SCH ×2 (07:45→21:23)
[2021-03-29] MEDS: guaiFENesin 600 MG TABLET.ER PO SCH ×2 (07:45→21:24)
[2021-03-29] MEDS: RALOXIFENE 60 MG TAB PO SCH (07:45)
[2021-03-29] MEDS: ENOXAPARIN 40 MG/0.4 ML SYRINGE SQ SCH (07:49)
--- NOTE | 2021-03-29 08:59 | XR ---
EXAMINATION TYPE: XR chest 1V portable DATE OF EXAM: 03/29/2021 COMPARISON: 03/25/2021 HISTORY: Shortness of breath TECHNIQUE: Single frontal view of the chest is obtained. FINDINGS: Diffuse interstitial pattern with subsegmental basilar changes. Postoperative change of ve rtebral column. Heart size stable. No pneumothorax or sizable pleural effusion. Diffuse osteopenia. IMPRESSION: 1. Continued diffuse interstitial infiltrates likely superimposed on a background of chronic interst itial lung disease correlate clinically.
--- NOTE | 2021-03-29 11:31 | P.PN ---
Subjective Progress Note Date: 03/29/21 Patient is doing fairly well today. He is having shortness of breath with minimal exertion. She is currently on 10 L of oxygen Objective - Vital Signs Vital signs: Vital Signs Temp 97.4 F L 03/29/21 10:00 Pulse 83 03/29/21 10:00 Resp 18 03/29/21 10:00 BP 124/78 03/29/21 10:00 Pulse Ox 89 L 03/29/21 10:00 Intake & Output 03/28/21 03/29/21 03/29/21 18:59 06:59 18:59 Output Total 4 1 Balance -4 -1 Output: Urine 3 Stool 1 1 Other: Voiding Method Bedside Commode Bedside Commode # Voids 2 - Exam General: The patient is awake and alert, in no distress Eye: there is normal conjunctiva bilaterally. Neck: The neck is supple, there is no JVD. Cardiovascular: Normal S1-S2, no S3-S4, no murmurs. Respiratory: Lungs clear to auscultation bilaterally Gastrointestinal: Abdomen is soft, nontender Musculoskeletal: There is no pedal edema. Neurological:. Speech is normal. Skin: Skin is warm and dry - Labs CBC & Chem 7: 03/28/21 07:28 03/28/21 07:28 Labs: Abnormal Lab Results - Last 24 Hours (Table) 03/28/21 Range/Units 07:28 Neutrophils # (Manual) 8.48 H (1.3-7.7) k/uL Assessment and Plan Assessment: This is a 70-year-old female with past medical history noted below who presented to the emergency room originally with worsening cough, shortness of breath, and fatigue. Patient was evaluated in the ER and admitted to the hospital for further management of her medical problems noted below. COVID pneumonitis with acute hypoxic respiratory failure Underlying COPD with history of prolonged tobacco abuse -Continue Vit C, Vit D, Melatonin, on Lovenox -Patient received Remdesivir and Toci as ordered by pulmonology -Currently on oxygen 10 L high flow, wean off as tolerated -Goal O2 sat 88-90% -CT angiogram on presentation negative for PE -Pulmonary consult appreciated input. Patient received IV Solu-Medrol 40 mg every 8 hours for one week then transitioned to oral prednisone 60 mg daily with a plan for slow taper course -Incentive spirometer at bedside to be used every hour -Repeat chest x-ray showed no significant changes -Continue albuterol inhaler every 6 hours, Symbicort twice daily, Mucinex and Tessalon Perles Chest pain -Atypical in nature and mostly musculoskeletal and easily reproducible on exam. Pain improved with ibuprofen -12-lead EKG showed no acute ischemic changes. Troponin was negative -Patient was seen and evaluated by cardiology. Echocardiogram showed preserved ejection fraction with no significant valvular abnormalities Lactic acidosis -On presentation now resolved Thrombocytopenia -Resolved Chronic conditions: COPD, hypertension, hyperlipidemia, hypothyroidism -Continue with home medications Essential hypertension: -Blood pressure borderline low. Discontinued amlodipine and hydrochloroth iazide. Continue metoprolol During this admission, I had a prolonged discussion with the patient and her daughter over the phone regarding goals of care. We discussed hospice philosophy and comfort care. Patient and her daughter are not interested in this time and would like to continue current management. I answered all their questions to satisfaction. Today, I spoke to her daughter Denisha over the phone. I explained to her that we are not seeing any significant improvement in the patient's overall oxygen requirement and this might be a plateau given underlying lung disease. We disc ussed comfort care again. She is not open for comfort care at this time. She would like to continue current management for the next few days in the home that we can achieve oxygen requirement levels that would be able to set up at home probably around 5-6 L. If no improvement over the next few days they may consider comfort care. I was able to get an exception from nurse logistics manager to allow her daughter to come visit patient and talked to her about her current condition. DVT prophylaxis -Lovenox CODE STATUS: Full Code Discussed with: patient and her daughter Anticipated discharge date: To be determined Anticipated discharge place: Home versus rehab, pending clinical progression
--- NOTE | 2021-03-29 12:21 | P.PN ---
Subjective Progress Note Date: 03/29/21 Principal diagnosis: Acute COVID-19 pneumonia This is a 70-year-old white female patient with past medical history of advanced COPD used to wear oxygen at one point, currently not on any home oxygen, former smoker, hep C treated with Harvoni, osteoarthritis, fibromyalgia, who came to the emergency department on 03/07/2021 for evaluation of cough, dyspnea, fatigue and myalgias, her symptoms have been present for approximately one week. Patient has no contact with coronavirus. In addition she has poor appetite, nausea, vomiting and diarrhea, she has anginal chest tightness without central chest pain. Chest x-ray shows diffuse moderate interstitial opacities in the left mid to lower lung and right lung base, no pleural effusion or pneumothorax. CTA chest shows bilateral opacities. Admission labs showed white blood cell, 4.5, hemoglobin 13, platelet count of 70, lymphocyte count of 0.14, d-dimer is 1.40, sodium is 137, potassium is 4.6, chloride is 103, CO2 is 18, BUN is 20, creatinine is 1.04. Plasma lactic acid is 2.7, ferritin level is 484, total bilirubin is 1.4, AST is 42, ALT is 23, alkaline phosphatase is 180, LDH is 710, CRP is 146.4, pro calcitonin level is 0.11, COVID 19 PCR. She is currently on 4 L of oxygen process between 92-95%, she is afebrile, still dyspneic, but no acute distress. Patient was started on Decadron, vitamins, and we'll start the patient on Remdesivir Patient was reevaluated today on 03/09/2021, patient remains on 6 L high flow nasal cannula, O2 sats is 91%. Patient tells me that she feels short of breath, no cough no wheezing no fever no chills. Her T-max yesterday was 99.6 today temperature is 98.3. Her WBC count is 5.4, basic metabolic profile is normal renal profile is normal LDH on admission was 710 and C-reactive protein was 146. D-dimer 1.40 platelets are 70,000. On 03/10/2001 patient seen in follow-up on medical surgical floor, today is Remdesivir date 3, FiO2 requirement is currently at 12 L, pulse ox is between 92-96%, still congested, coughing, lung sounds reveal diminished breath sounds with some crackles at the bases. No fever. Continues on Decadron 6 mg daily, vitamins, she is on Mucinex, he hasn't had a recent chest x-ray done for a couple of days, her last d-dimer was on 2020 and was at 1.4, no recent LDH a CRP. She states she would like a nebulizer treatment however in view of her quit positive status she cannot have a nebulizer we will order albuterol which she can have 4 times daily scheduled and as needed when necessary every 2 hours. In addition patient is on Symbicort. On 03/15/2021 patient seen in follow-up on medical surgical floor, she continues to require high flow oxygen per 15 L high flow and are present a nonrebreather mask, she states her dyspnea is not worsened. Still coughing, and at times she is able to bring up some phlegm, her pulse ox is 91-92%, for chest pain, she is able to bring up some phlegm at times, no new chest x-ray today, yesterday she received 640 mg Tocilizumab in view of worsening hypoxia, she also remains on IV Solu-Medrol. D-dimer was 1.79 yesterday's labs, d-dimer and LDH a CRP will be ordered for tomorrow. No complaints chest pain, no hemoptysis, no fever. On 03/18/2001 patient seen in follow-up on medical surgical floor, she states she has no worsening dyspnea, although still requiring high flow oxygen at 15 L and 100% nonrebreather mask, and she seems to be breathing comfortably at this time, patient is trying to eat a cookie at the time of my examination, she has a nonrebreather mask off, and on 15 L of oxygen her pulse ox is 73%, but she looks comfortable, in the 100% nonrebreather mask will be placed back on her when she is done eating. He is calm and cooperative, she is oriented 3, no cough, no chest pain. Last chest x-ray was yesterday showing continue bilateral reticulonodular opacities consistent with COVID infection on the background of chronic parenchymal and emphysematous changes, with no significant change from most recent chest x-ray. Her labs today show white blood cell, 19.1, hemoglobin of 14.4, CO2 is 21, the rest of the electrolytes are within normal limits, B1 is 25, creatinine 0.74, no nausea vomiting or diarrhea, patient is tolerating oral intake. She status post Toci, and she remains on Solu-Medrol at 40 mg every 8 hours and prophylactic dose of Lovenox. On 03/19/2031 patient seen in follow-up on medical surgical floor, she still remains on high flow nasal cannula at 15 L and 100% nonrebreather mask, she does desaturate into the low 70s when she removes nonrebreather mask however she does not become any more short of breath, seems to be breathing very comfortably, she is currently sitting up in the chair, she is frequently reminded not to remove the nonrebreather mask, she states that she still has occasional cough with production of creamy white phlegm, no hemoptysis, no chest pain, lung sounds reveal some scattered crackles, she is alert and oriented 3, appears to be breathing quite comfortably, no new chest x-ray today, his labs reveal white bl ood cell count of 17.8, d-dimer is 1.73, BMP is pending, will continue current medical treatment and patient is on prophylactic dose Lovenox, remains on IV Solu-Medrol 40 mg every 8 hours, Symbicort, vitamins, and inhalers On 03/20/2021 patient is seen in follow-up on medical surgical floor, she is currently just on 15 L high flow nasal cannula, very comfortable, she is resting comfortably in bed, denies any worsening dyspnea, she does desaturate with activity, but does recover, not requiring her percent nonrebreathing mask today, she remains on IV Solu-Medrol 40 mg every 8 hours, she is on Lovenox 40 mg daily, she is on inhalers, vitamins. Today's labs have been reviewed showing white count, 12.23, no new d-dimer, electrolytes are within normal limits, BUN of 38 creatinine is 1.0. No new chest x-ray, On 03/21/2021 patient seen in follow-up on medical surgical floor, she is resting comfortably, she is currently off the nonrebreather mask, her pulse ox on 10 L per high flow nasal cannula is 90%, vital signs have been stable, no fever or chills, no worsening dyspnea, occasional congested cough, no sputum production, no chest discomfort. No nausea vomiting or diarrhea, patient co ntinues on IV Solu-Medrol, 40 mg every 8 hours, prophylactic dose of Lovenox. No new labs today, no new chest x-ray, clinically improving On 03/22/2021 patient seen in follow-up on medical surgical floor, today she is on 10 L of oxygen her pulse ox is 92%, she still has a congested cough, and she states her chest hurts with coughing, and feels achy. Otherwise no worsening dyspnea. Sounds positive for diffuse crackles and wheezing, IV Solu-Medrol has been switched to oral prednisone, she is on Mucinex, she is on Lovenox prophylactic dose, we will obtain follow-up chest x-ray tomorrow, she's had no nausea vomiting or diarrhea. On 03/23/2001 patient seen in follow-up on medical surgical floor, she continues to have congestive cough, she states her chest wall is sore with coughing or deep breathing, she is currently on 15 L of oxygen her pulse ox is 89-94%, she is afebrile, hemodynamically she is stable, she sits in a recliner, appears to be no acute distress, she continues on oral prednisone 60 mg daily, she is receiving Mucinex on an as-needed basis, and Tessalon Perles on as-needed basis for her cough, she continues on Lovenox 40 mg her last d-dimer was 1.73, no hemoptysis, Restoril labs have been reviewed from yesterday, no new subtle labs were today. Today's chest x-ray showed no change in the appearance of COVID pneumonia The patient is seen today 03/24/2021 in follow-up on the regular medical floor. She is currently sitting up in bed. Awake and alert in no acute distress. She is still requiring 15 L high flow nasal cannula to maintain O2 saturations in the low 90s. Blood gases were drawn on the patient earlier today with a PaO2 of 67, pCO2 44, pH 7.33. White count 10.3. Hemoglobin 12.7. Lymphocytes 1.0. Sodium 137. Potassium 4.3. Creatinine 0.82. Ferritin 380. LDH 942. C- reactive protein 0.5. She is continued on bronchodilators, vitamin supplements, Lovenox, prednisone. The patient is seen today 03/29/2021 in follow-up on the regular medical floor. She is currently sitting up at the bedside. Awake and alert in no acute distress. She is down to 8 L high flow nasal cannula with O2 saturation at 94%. Shortness of breath is about the same. No real improvement. But no worse. Chest x-ray reveals continued diffuse interstitial infiltrates. She remains on vitamin supplements, Symbicort, albuterol, Lovenox, prednisone. No new labs today. Objective - Vital Signs Vital signs: Vital Signs Temp 97.4 F L 03/29/21 10:00 Pulse 83 03/29/21 10:00 Resp 18 03/29/21 10:00 BP 124/78 03/29/21 10:00 Pulse Ox 89 L 03/29/21 10:00 Intake & Output 03/28/21 03/29/21 03/29/21 18:59 06:59 18:59 Output Total 4 1 Balance -4 -1 Output: Urine 3 Stool 1 1 Other: Voiding Method Bedside Commode Bedside Commode # Voids 2 - Exam GENERAL EXAM: Alert, pleasant 70-year-old female patient, on 8 L high flow nasal cannula, fairly comfortable in no apparent distress. HEAD: Normocephalic. EYES: Normal reaction of pupils, equal size. NOSE: Clear with pink turbinates. THROAT: No erythema or exudates. NECK: No masses, no JVD. CHEST: No chest wall deformity. LUNGS: Equal air entry with crackles in the bilateral bases CVS: S1 and S2 normal with no audible murmur, regular rhythm. ABDOMEN: No hepatosplenomegaly, normal bowel sounds, no guarding or rigidity. SPINE: No scoliosis or deformity SKIN: No rashes CENTRAL NERVOUS SYSTEM: No focal deficits, tone is normal in all 4 extremities. EXTREMITIES: There is no peripheral edema. No clubbing, no cyanosis. Peripheral pulses are intact. - Labs CBC & Chem 7: 03/28/21 07:28 03/28/21 07:28 Labs: Abnormal Lab Results - Last 24 Hours (Table) 03/28/21 Range/Units 07:28 Neutrophils # (Manual) 8.48 H (1.3-7.7) k/uL Assessment and Plan Assessment: 1 Acute hypoxic respiratory failure related to acute COVID 19 pneumonia, with onset of symptoms within 1 week of presentation, patient was started on Remdesivir on 03/08/2021 however her hypoxia had progressed and we stopped of Remdesivir and gave Toci on 03/14/2021 2 Advanced COPD, used to wear home oxygen in the past, but most recently has not required it 3 Osteoarthritis 4 History of hepatitis C, treated with hormone 5 Former smoker 6 History of multiple surgeries involving her right wrist, with extensive joint and nerve damage. Patient was recommended to have right upper arm amputation however she opted against amputation 7 Fibromyalgia 8 Depression 9 Increased d-dimer without CT evidence of pulmonary embolism Plan: The patient was seen and evaluated by Dr. White Decrease the O2 to 8 L high flow nasal cannula Okay to maintain O2 saturations 88% or higher Continue Lovenox, prednisone, vitamin supplements Increase her activity as tolerated We will continue to follow I, the cosigning physician, performed a history & physical examination of the patient. Lungs sounds with crackles in the posterior bases. Maintaining good O2 saturations in the 90s on 8 L high flow nasal cannula. I discussed the assessment and plan of care with my nurse practitioner, Mikala Kern. I attest to the above note as dictated by her.
--- NOTE | 2021-03-29 15:34 | P.PN ---
Progress Note - Text Progress Note Date: 03/29/21 Today, I had a prolonged meeting with the patient and her daughter at bedside. We discussed current patient condition and oxygen requirement. I reassured the patient that as long as her O2 sats are greater than 88% we can continue to wean her off of the oxygen. Her daughter had a lot of questions regarding her inhalers and persistent dyspnea. The patient's goal is to get better and being discharged home on oxygen. She is not open to comfort care or hospice at this time. I was able to wean her oxygen down to 7 L with O2 sat around 92%. We will see how she is doing over the weekend. Hopefully she can be discharged home when her oxygen requirement is around 4-5 L. Time spent > 16 mins
[2021-03-29] MEDS: risperiDONE 2 MG TAB PO SCH (21:22)
[2021-03-29] MEDS: traZODone HCL 100 MG TAB PO SCH (21:22)
[2021-03-30] MEDS: LEVOTHYROXINE 50 MCG TAB PO SCH (05:57)
[2021-03-30] MEDS: ALBUTEROL HFA INHALER INHALATION SCH ×4 (09:31→19:41)
[2021-03-30] MEDS: SYMBICORT 160-4.5 MCG INHALER INHALATION SCH ×2 (09:31→19:41)
[2021-03-30] MEDS: ATORVASTATIN 10 MG TAB PO SCH (10:04)
[2021-03-30] MEDS: ENOXAPARIN 40 MG/0.4 ML SYRINGE SQ SCH (10:04)
[2021-03-30] MEDS: PANTOPRAZOLE 40 MG TABLET PO SCH (10:04)
[2021-03-30] MEDS: GABAPENTIN 400 MG CAP PO SCH ×3 (10:04→20:58)
[2021-03-30] MEDS: ASCORBIC ACID 500 MG TAB PO SCH (10:04)
[2021-03-30] MEDS: busPIRone HCl 10 MG TAB PO SCH ×2 (10:04→19:37)
[2021-03-30] MEDS: predniSONE 20 MG TAB PO SCH (10:04)
[2021-03-30] MEDS: SERTRALINE 100 MG TAB PO SCH (10:04)
[2021-03-30] MEDS: METOPROLOL TARTRATE 25 MG TAB PO SCH ×2 (10:05→19:36)
[2021-03-30] MEDS: guaiFENesin 600 MG TABLET.ER PO SCH ×2 (10:05→19:36)
[2021-03-30] MEDS: BENZONATATE 100 MG CAP PO SCH ×3 (10:05→20:59)
[2021-03-30] MEDS: DOCUSATE 100 MG CAP PO SCH ×3 (10:05→19:37)
[2021-03-30] MEDS: CALCIUM CARBONATE 500 MG CHEWABLE PO SCH (10:05)
[2021-03-30] MEDS: CHOLECALCIFEROL 25 MCG (1000 IU) TABLET PO SCH (10:05)
[2021-03-30] MEDS: RALOXIFENE 60 MG TAB PO SCH (10:08)
--- NOTE | 2021-03-30 12:00 | P.PN ---
Subjective Progress Note Date: 03/30/21 Feels okay, short of breath today but is down to 7 L of oxygen. No chest pain, no abdominal pain. Objective - Vital Signs Vital signs: Vital Signs Temp 98.1 F 03/30/21 09:57 Pulse 90 03/30/21 09:57 Resp 20 03/30/21 09:57 BP 149/84 03/30/21 09:57 Pulse Ox 90 L 03/30/21 09:57 Intake & Output 03/29/21 03/30/21 03/30/21 18:59 06:59 18:59 Output Total 2 1 Balance -2 -1 Output: Stool 2 1 Other: Voiding Method Bedside Commode Bedside Commode # Voids 1 1 # Bowel Movements 1 - Exam Constitutional: No acute distress, conversant, pleasant, on 7 L of oxygen ENMT: NC/AT Neck:Supple, Lungs: Decreased breath sounds, no wheezing Abdominal: Soft Nontender, non distended Extremities: no cce Alert and oriented to person, place and time Neuro: Muscles Strength 5/5 in all 4 extremities Cranial nerves II-XII grossly intact. - Labs CBC & Chem 7: 03/28/21 07:28 03/28/21 07:28 Assessment and Plan Plan: COVID pneumonitis with acute hypoxic respiratory failure -Continue supportive care, oxygen at 7 L. -Daily vitamin C and vitamin D -Pulmonary consult appreciated input. Slow improvement. Thrombocytopenia -Likely secondary to acute stressor Fluctuates, platelets 95 Chronic conditions: COPD, hypertension, hyperlipidemia, hypothyroidism -Continue with home medications Essential hypertension: Continue current antihypertensives.. Leukocytosis Resolved DVT prophylaxis -Lovenox CODE STATUS: Full Code Discussed with: patient and nurse Anticipated discharge date: 2-[address]: Home versus rehab, pending clinical progression
--- NOTE | 2021-03-30 14:04 | P.PN ---
Subjective Progress Note Date: 03/30/21 Principal diagnosis: Acute COVID-19 pneumonia This is a 70-year-old white female patient with past medical history of advanced COPD used to wear oxygen at one point, currently not on any home oxygen, former smoker, hep C treated with Harvoni, osteoarthritis, fibromyalgia, who came to the emergency department on 03/07/2021 for evaluation of cough, dyspnea, fatigue and myalgias, her symptoms have been present for approximately one week. Patient has no contact with coronavirus. In addition she has poor appetite, nausea, vomiting and diarrhea, she has anginal chest tightness without central chest pain. Chest x-ray shows diffuse moderate interstitial opacities in the left mid to lower lung and right lung base, no pleural effusion or pneumothorax. CTA chest shows bilateral opacities. Admission labs showed white blood cell, 4.5, hemoglobin 13, platelet count of 70, lymphocyte count of 0.14, d-dimer is 1.40, sodium is 137, potassium is 4.6, chloride is 103, CO2 is 18, BUN is 20, creatinine is 1.04. Plasma lactic acid is 2.7, ferritin level is 484, total bilirubin is 1.4, AST is 42, ALT is 23, alkaline phosphatase is 180, LDH is 710, CRP is 146.4, pro calcitonin level is 0.11, COVID 19 PCR. She is currently on 4 L of oxygen process between 92-95%, she is afebrile, still dyspneic, but no acute distress. Patient was started on Decadron, vitamins, and we'll start the patient on Remdesivir Patient was reevaluated today on 03/09/2021, patient remains on 6 L high flow nasal cannula, O2 sats is 91%. Patient tells me that she feels short of breath, no cough no wheezing no fever no chills. Her T-max yesterday was 99.6 today temperature is 98.3. Her WBC count is 5.4, basic metabolic profile is normal renal profile is normal LDH on admission was 710 and C-reactive protein was 146. D-dimer 1.40 platelets are 70,000. On 03/10/2001 patient seen in follow-up on medical surgical floor, today is Remdesivir date 3, FiO2 requirement is currently at 12 L, pulse ox is between 92-96%, still congested, coughing, lung sounds reveal diminished breath sounds with some crackles at the bases. No fever. Continues on Decadron 6 mg daily, vitamins, she is on Mucinex, he hasn't had a recent chest x-ray done for a couple of days, her last d-dimer was on 2020 and was at 1.4, no recent LDH a CRP. She states she would like a nebulizer treatment however in view of her quit positive status she cannot have a nebulizer we will order albuterol which she can have 4 times daily scheduled and as needed when necessary every 2 hours. In addition patient is on Symbicort. On 03/15/2021 patient seen in follow-up on medical surgical floor, she continues to require high flow oxygen per 15 L high flow and are present a nonrebreather mask, she states her dyspnea is not worsened. Still coughing, and at times she is able to bring up some phlegm, her pulse ox is 91-92%, for chest pain, she is able to bring up some phlegm at times, no new chest x-ray today, yesterday she received 640 mg Tocilizumab in view of worsening hypoxia, she also remains on IV Solu-Medrol. D-dimer was 1.79 yesterday's labs, d-dimer and LDH a CRP will be ordered for tomorrow. No complaints chest pain, no hemoptysis, no fever. On 03/18/2001 patient seen in follow-up on medical surgical floor, she states she has no worsening dyspnea, although still requiring high flow oxygen at 15 L and 100% nonrebreather mask, and she seems to be breathing comfortably at this time, patient is trying to eat a cookie at the time of my examination, she has a nonrebreather mask off, and on 15 L of oxygen her pulse ox is 73%, but she looks comfortable, in the 100% nonrebreather mask will be placed back on her when she is done eating. He is calm and cooperative, she is oriented 3, no cough, no chest pain. Last chest x-ray was yesterday showing continue bilateral reticulonodular opacities consistent with COVID infection on the background of chronic parenchymal and emphysematous changes, with no significant change from most recent chest x-ray. Her labs today show white blood cell, 19.1, hemoglobin of 14.4, CO2 is 21, the rest of the electrolytes are within normal limits, B1 is 25, creatinine 0.74, no nausea vomiting or diarrhea, patient is tolerating oral intake. She status post Toci, and she remains on Solu-Medrol at 40 mg every 8 hours and prophylactic dose of Lovenox. On 03/19/2031 patient seen in follow-up on medical surgical floor, she still remains on high flow nasal cannula at 15 L and 100% nonrebreather mask, she does desaturate into the low 70s when she removes nonrebreather mask however she does not become any more short of breath, seems to be breathing very comfortably, she is currently sitting up in the chair, she is frequently reminded not to remove the nonrebreather mask, she states that she still has occasional cough with production of creamy white phlegm, no hemoptysis, no chest pain, lung sounds reveal some scattered crackles, she is alert and oriented 3, appears to be breathing quite comfortably, no new chest x-ray today, his labs reveal white bl ood cell count of 17.8, d-dimer is 1.73, BMP is pending, will continue current medical treatment and patient is on prophylactic dose Lovenox, remains on IV Solu-Medrol 40 mg every 8 hours, Symbicort, vitamins, and inhalers On 03/20/2021 patient is seen in follow-up on medical surgical floor, she is currently just on 15 L high flow nasal cannula, very comfortable, she is resting comfortably in bed, denies any worsening dyspnea, she does desaturate with activity, but does recover, not requiring her percent nonrebreathing mask today, she remains on IV Solu-Medrol 40 mg every 8 hours, she is on Lovenox 40 mg daily, she is on inhalers, vitamins. Today's labs have been reviewed showing white count, 12.23, no new d-dimer, electrolytes are within normal limits, BUN of 38 creatinine is 1.0. No new chest x-ray, On 03/21/2021 patient seen in follow-up on medical surgical floor, she is resting comfortably, she is currently off the nonrebreather mask, her pulse ox on 10 L per high flow nasal cannula is 90%, vital signs have been stable, no fever or chills, no worsening dyspnea, occasional congested cough, no sputum production, no chest discomfort. No nausea vomiting or diarrhea, patient co ntinues on IV Solu-Medrol, 40 mg every 8 hours, prophylactic dose of Lovenox. No new labs today, no new chest x-ray, clinically improving On 03/22/2021 patient seen in follow-up on medical surgical floor, today she is on 10 L of oxygen her pulse ox is 92%, she still has a congested cough, and she states her chest hurts with coughing, and feels achy. Otherwise no worsening dyspnea. Sounds positive for diffuse crackles and wheezing, IV Solu-Medrol has been switched to oral prednisone, she is on Mucinex, she is on Lovenox prophylactic dose, we will obtain follow-up chest x-ray tomorrow, she's had no nausea vomiting or diarrhea. On 03/23/2001 patient seen in follow-up on medical surgical floor, she continues to have congestive cough, she states her chest wall is sore with coughing or deep breathing, she is currently on 15 L of oxygen her pulse ox is 89-94%, she is afebrile, hemodynamically she is stable, she sits in a recliner, appears to be no acute distress, she continues on oral prednisone 60 mg daily, she is receiving Mucinex on an as-needed basis, and Tessalon Perles on as-needed basis for her cough, she continues on Lovenox 40 mg her last d-dimer was 1.73, no hemoptysis, Restoril labs have been reviewed from yesterday, no new subtle labs were today. Today's chest x-ray showed no change in the appearance of COVID pneumonia The patient is seen today 03/24/2021 in follow-up on the regular medical floor. She is currently sitting up in bed. Awake and alert in no acute distress. She is still requiring 15 L high flow nasal cannula to maintain O2 saturations in the low 90s. Blood gases were drawn on the patient earlier today with a PaO2 of 67, pCO2 44, pH 7.33. White count 10.3. Hemoglobin 12.7. Lymphocytes 1.0. Sodium 137. Potassium 4.3. Creatinine 0.82. Ferritin 380. LDH 942. C- reactive protein 0.5. She is continued on bronchodilators, vitamin supplements, Lovenox, prednisone. The patient is seen today 03/29/2021 in follow-up on the regular medical floor. She is currently sitting up at the bedside. Awake and alert in no acute distress. She is down to 8 L high flow nasal cannula with O2 saturation at 94%. Shortness of breath is about the same. No real improvement. But no worse. Chest x-ray reveals continued diffuse interstitial infiltrates. She remains on vitamin supplements, Symbicort, albuterol, Lovenox, prednisone. No new labs today. The patient is seen today 03/30/2021 follow-up on the regular medical floor. She is awake and alert in no acute distress. Resting fairly comfortably in bed. She is still dyspneic with minimal exertion. She is on 9 L high flow nasal cannula to maintain O2 saturation the high 80s low 90s. His been afebrile. Hemodynamically stable. She is continued on vitamin supplements, bronchodilato rs, Lovenox, prednisone. Objective - Vital Signs Vital signs: Vital Signs Temp 98.1 F 03/30/21 09:57 Pulse 90 03/30/21 09:57 Resp 20 03/30/21 09:57 BP 149/84 03/30/21 09:57 Pulse Ox 90 L 03/30/21 09:57 Intake & Output 03/29/21 03/30/21 03/30/21 18:59 06:59 18:59 Output Total 2 1 Balance -2 -1 Output: Stool 2 1 Other: Voiding Method Bedside Commode Bedside Commode # Voids 1 1 # Bowel Movements 1 - Exam GENERAL EXAM: Alert, pleasant 70-year-old female patient, on 9 L high flow nasal cannula, fairly comfortable in no apparent distress. HEAD: Normocephalic. EYES: Normal reaction of pupils, equal size. NOSE: Clear with pink turbinates. THROAT: No erythema or exudates. NECK: No masses, no JVD. CHEST: No chest wall deformity. LUNGS: Equal air entry with crackles in the bilateral bases CVS: S1 and S2 normal with no audible murmur, regular rhythm. ABDOMEN: No hepatosplenomegaly, normal bowel sounds, no guarding or rigidity. SPINE: No scoliosis or deformity SKIN: No rashes CENTRAL NERVOUS SYSTEM: No focal deficits, tone is normal in all 4 extremities. EXTREMITIES: There is no peripheral edema. No clubbing, no cyanosis. Pe ripheral pulses are intact. - Labs CBC & Chem 7: 03/28/21 07:28 03/28/21 07:28 Assessment and Plan Assessment: 1 Acute hypoxic respiratory failure related to acute COVID 19 pneumonia, with onset of symptoms within 1 week of presentation, patient was started on Remdesivir on 03/08/2021 however her hypoxia had progressed and we stopped of Remdesivir and gave Toci on 03/14/2021 2 Advanced COPD, used to wear home oxygen in the past, but most recently has not required it 3 Osteoarthritis 4 History of hepatitis C, treated with hormone 5 Former smoker 6 History of multiple surgeries involving her right wrist, with extensive joint and nerve damage. Patient was recommended to have right upper arm amputation however she opted against amputation 7 Fibromyalgia 8 Depression 9 Increased d-dimer without CT evidence of pulmonary embolism Plan: The patient was seen and evaluated by Dr. White Titrate down the FiO2 as tolerated Continue Lovenox, prednisone, vitamin supplements Increase her activity as tolerated We will continue to follow I, the cosigning physician, performed a history & physical examination of the patient. Lungs sounds with crackles in the posterior bases. Maintaining good O2 saturations in the 90s on 9 L high flow nasal cannula. I discussed the assessment and plan of care with my nurse practitioner, Mikala Kern. I attest to the above note as dictated by her.
[2021-03-30] MEDS: oxyCODONE-APAP 7.5-325MG 1 EACH TAB PO PRN (19:36)
[2021-03-30] MEDS: risperiDONE 2 MG TAB PO SCH (19:37)
[2021-03-30] MEDS: traZODone HCL 100 MG TAB PO SCH (19:37)
[2021-03-31] MEDS: LEVOTHYROXINE 50 MCG TAB PO SCH (05:53)
[2021-03-31] MEDS: SYMBICORT 160-4.5 MCG INHALER INHALATION SCH ×2 (08:27→20:35)
[2021-03-31] MEDS: predniSONE 20 MG TAB PO SCH (08:45)
[2021-03-31] MEDS: CHOLECALCIFEROL 25 MCG (1000 IU) TABLET PO SCH (08:46)
[2021-03-31] MEDS: GABAPENTIN 400 MG CAP PO SCH ×3 (08:46→20:43)
[2021-03-31] MEDS: ATORVASTATIN 10 MG TAB PO SCH (08:46)
[2021-03-31] MEDS: busPIRone HCl 10 MG TAB PO SCH ×2 (08:46→20:43)
[2021-03-31] MEDS: guaiFENesin 600 MG TABLET.ER PO SCH ×2 (08:46→20:43)
[2021-03-31] MEDS: METOPROLOL TARTRATE 25 MG TAB PO SCH ×2 (08:46→20:43)
[2021-03-31] MEDS: CALCIUM CARBONATE 500 MG CHEWABLE PO SCH (08:46)
[2021-03-31] MEDS: PANTOPRAZOLE 40 MG TABLET PO SCH (08:46)
[2021-03-31] MEDS: ASCORBIC ACID 500 MG TAB PO SCH (08:47)
[2021-03-31] MEDS: SERTRALINE 100 MG TAB PO SCH (08:47)
[2021-03-31] MEDS: BENZONATATE 100 MG CAP PO SCH ×3 (08:47→20:44)
[2021-03-31] MEDS: RALOXIFENE 60 MG TAB PO SCH (08:48)
[2021-03-31] MEDS: ENOXAPARIN 40 MG/0.4 ML SYRINGE SQ SCH (08:48)
[2021-03-31] MEDS: DOCUSATE 100 MG CAP PO SCH ×2 (08:49→20:40)
[2021-03-31] MEDS: ALBUTEROL HFA INHALER INHALATION SCH ×4 (08:57→20:35)
--- NOTE | 2021-03-31 10:51 | P.PN ---
Subjective Progress Note Date: 03/31/21 Feels better today, no chest pain, no abdominal pain, no nausea or vomiting. Now back to 7 L of oxygen Objective - Vital Signs Vital signs: Vital Signs Temp 97.4 F L 03/31/21 10:00 Pulse 106 H 03/31/21 10:00 Resp 20 03/31/21 10:00 BP 122/82 03/31/21 10:00 Pulse Ox 89 L 03/31/21 10:00 Intake & Output 03/30/21 03/31/21 03/31/21 18:59 06:59 18:59 Other: Voiding Method Bedside Commode # Voids 3 - Exam Constitutional: No acute distress, conversant, pleasant, on 7 L of oxygen ENMT: NC/AT Neck:Supple, Lungs: Decreased breath sounds, no wheezing Abdominal: Soft Nontender, non distended, positive bowel sounds Extremities: no cce Alert and oriented to person, place and time Neuro: Muscles Strength 5/5 in all 4 extremities Cranial nerves II-XII grossly intact. - Labs CBC & Chem 7: 03/28/21 07:28 03/28/21 07:28 Labs: Abnormal Lab Results - Last 24 Hours (Table) 03/31/21 Range/Units 07:34 D-Dimer 0.96 H (<0.60) mg/L FEU Assessment and Plan Plan: COVID pneumonitis with acute hypoxic respiratory failure -Continue supportive care, oxygen at 7 L. -Daily vitamin C and vitamin D -Pulmonary consult appreciated input. Slow improvement. Monitor. Thrombocytopenia -Likely secondary to acute stressor Fluctuates Chronic conditions: COPD, hypertension, hyperlipidemia, hypothyroidism -Continue with home medications Essential hypertension: Continue current antihypertensives.. Leukocytosis Resolved DVT prophylaxis -Lovenox CODE STATUS: Full Code Discussed with: patient and nurse Anticipated discharge date: 2-[address]: Home versus rehab, pending clinical progression
[2021-03-31 12:12] LABS: African American GFR (CKD) 85.4 (60.0-200.0); Albumin 3.9 g/dL (3.80-4.90); Albumin/Globulin Ratio 1.63 (1.60-3.17); Anion Gap 9.7 mmol/L (4.00-12.00); BUN/Creat Ratio 22.5 Ratio (12.00-20.00); Calcium 8.7 mg/dL (8.7-10.3); Carbon Dioxide 23.3 mmol/L (21.6-31.8); Globulin 2.4 g/dL (1.6-3.3); Non-African American GFR(CKD) 73.7 (60.0-200.0); Total Bilirubin 0.3 mg/dL (0.3-1.2); Total Protein 6.3 g/dL (6.2-8.2)
[2021-03-31 12:19] LABS: Basophils # (A) 0.01 X 10*3/uL (0.00-0.10); Basophils % (A) 0.1 %; Eosinophils # (A) 0.16 X 10*3/uL (0.04-0.35); Eosinophils % (A) 1.6 %; HCT 37.7 % (37.2-46.3); HGB 11.9 g/dL (12.0-15.0); Lymphocytes # (A) 1.18 X 10*3/uL (0.90-5.00); Lymphocytes % (A) 11.6 %; MCH 29.9 pg (27.0-32.0); MCHC 31.6 g/dL (32.0-37.0); MCV 94.7 fL (80.0-97.0); Monocytes # (A) 0.39 X 10*3/uL (0.20-1.00); Monocytes % (A) 3.8 %; Neutrophils # (A) 8.38 X 10*3/uL (1.80-7.70); Neutrophils % (A) 82.1 %; Platelet Count 78 X 10*3/uL (140-440); RBC 3.98 X 10*6/uL (4.10-5.20); RDW 13.5 % (11.5-14.5)
--- NOTE | 2021-03-31 15:23 | P.PN ---
Subjective Progress Note Date: 03/31/21 Principal diagnosis: Acute hypoxic respiratory failure secondary to acute Covid 19 pneumonia This is a 70-year-old white female patient with past medical history of advanced COPD used to wear oxygen at one point, currently not on any home oxygen, former smoker, hep C treated with Harvoni, osteoarthritis, fibromyalgia, who came to the emergency department on 03/07/2021 for evaluation of cough, dyspnea, fatigue and myalgias, her symptoms have been present for approximately one week. Patient has no contact with coronavirus. In addition she has poor appetite, nausea, vomiting and diarrhea, she has anginal chest tightness without central chest pain. Chest x-ray shows diffuse moderate interstitial opacities in the left mid to lower lung and right lung base, no pleural effusion or pneumothorax. CTA chest shows bilateral opacities. Admission labs showed white blood cell, 4.5, hemoglobin 13, platelet count of 70, lymphocyte count of 0.14, d-dimer is 1.40, sodium is 137, potassium is 4.6, chloride is 103, CO2 is 18, BUN is 20, creatinine is 1.04. Plasma lactic acid is 2.7, ferritin level is 484, total bilirubin is 1.4, AST is 42, ALT is 23, alkaline phosphatase is 180, LDH is 710, CRP is 146.4, pro calcitonin level is 0.11, COVID 19 PCR. She is currently on 4 L of oxygen process between 92-95%, she is afebrile, still dyspneic, but no acute distress. Patient was started on Decadron, vitamins, and we'll start the patient on Remdesivir Patient was reevaluated today on 03/09/2021, patient remains on 6 L high flow nasal cannula, O2 sats is 91%. Patient tells me that she feels short of breath, no cough no wheezing no fever no chills. Her T-max yesterday was 99.6 today temperature is 98.3. Her WBC count is 5.4, basic metabolic profile is normal renal profile is normal LDH on admission was 710 and C-reactive protein was 146. D-dimer 1.40 platelets are 70,000. On 03/10/2001 patient seen in follow-up on medical surgical floor, today is Remdesivir date 3, FiO2 requirement is currently at 12 L, pulse ox is between 92-96%, still congested, coughing, lung sounds reveal diminished breath sounds with some crackles at the bases. No fever. Continues on Decadron 6 mg daily, vitamins, she is on Mucinex, he hasn't had a recent chest x-ray done for a coupl e of days, her last d-dimer was on 2020 and was at 1.4, no recent LDH a CRP. She states she would like a nebulizer treatment however in view of her quit positive status she cannot have a nebulizer we will order albuterol which she can have 4 times daily scheduled and as needed when necessary every 2 hours. In addition patient is on Symbicort. On 03/15/2021 patient seen in follow-up on medical surgical floor, she continues to require high flow oxygen per 15 L high flow and are present a nonrebreather mask, she states her dyspnea is not worsened. Still coughing, and at times she is able to bring up some phlegm, her pulse ox is 91-92%, for chest pain, she is able to bring up some phlegm at times, no new chest x-ray today, yesterday she received 640 mg Tocilizumab in view of worsening hypoxia, she also remains on IV Solu-Medrol. D-dimer was 1.79 yesterday's labs, d-dimer and LDH a CRP will be ordered for tomorrow. No complaints chest pain, no hemoptysis, no fever. On 03/18/2001 patient seen in follow-up on medical surgical floor, she states she has no worsening dyspnea, although still requiring high flow oxygen at 15 L and 100% nonrebreather mask, and she seems to be breathing comfortably at this time, patient is trying to eat a cookie at the time of my examination, she has a nonrebreather mask off, and on 15 L of oxygen her pulse ox is 73%, but she looks comfortable, in the 100% nonrebreather mask will be placed back on her when she is done eating. He is calm and cooperative, she is oriented 3, no cough, no chest pain. Last chest x-ray was yesterday showing continue bilateral reticulonodular opacities consistent with COVID infection on the background of c hronic parenchymal and emphysematous changes, with no significant change from most recent chest x-ray. Her labs today show white blood cell, 19.1, hemoglobin of 14.4, CO2 is 21, the rest of the electrolytes are within normal limits, B1 is 25, creatinine 0.74, no nausea vomiting or diarrhea, patient is tolerating oral intake. She status post Toci, and she remains on Solu-Medrol at 40 mg every 8 h ours and prophylactic dose of Lovenox. On 03/19/2031 patient seen in follow-up on medical surgical floor, she still remains on high flow nasal cannula at 15 L and 100% nonrebreather mask, she does desaturate into the low 70s when she removes nonrebreather mask however she does not become any more short of breath, seems to be breathing very comfortably, she is currently sitting up in the chair, she is frequently reminded not to remove the nonrebreather mask, she states that she still has occasional cough with production of creamy white phlegm, no hemoptysis, no chest pain, lung sounds reveal some scattered crackles, she is alert and oriented 3, appears to be breathing quite comfortably, no new chest x-ray today, his labs reveal white blood cell count of 17.8, d-dimer is 1.73, BMP is pending, will continue current medical treatment and patient is on prophylactic dose Lovenox, remains on IV Solu-Medrol 40 mg every 8 hours, Symbicort, vitamins, and inhalers On 03/20/2021 patient is seen in follow-up on medical surgical floor, she is currently just on 15 L high flow nasal cannula, very comfortable, she is resting comfortably in bed, denies any worsening dyspnea, she does desaturate with activity, but does recover, not requiring her percent nonrebreathing mask today, she remains on IV Solu-Medrol 40 mg every 8 hours, she is on Lovenox 40 mg daily, she is on inhalers, vitamins. Today's labs have been reviewed showing white count, 12.23, no new d-dimer, electrolytes are within normal limits, BUN of 38 creatinine is 1.0. No new chest x-ray, On 03/21/2021 patient seen in follow-up on medical surgical floor, she is resting comfortably, she is currently off the nonrebreather mask, her pulse ox on 10 L per high flow nasal cannula is 90%, vital signs have been stable, no fever or chills, no worsening dyspnea, occasional congested cough, no sputum production, no chest discomfort. No nausea vomiting or diarrhea, patient continues on IV Solu-Medrol, 40 mg every 8 hours, prophylactic dose of Lovenox. No new labs today, no new chest x-ray, clinically improving On 03/22/2021 patient seen in follow-up on medical surgical floor, today she is on 10 L of oxygen her pulse ox is 92%, she still has a congested cough, and she states her chest hurts with coughing, and feels achy. Otherwise no worsening dyspnea. Sounds positive for diffuse crackles and wheezing, IV Solu-Medrol has been switched to oral prednisone, she is on Mucinex, she is on Lovenox prophylactic dose, we will obtain follow-up chest x-ray tomorrow, she's had no nausea vomiting or diarrhea. On 03/23/2001 patient seen in follow-up on medical surgical floor, she continues to have congestive cough, she states her chest wall is sore with coughing or deep breathing, she is currently on 15 L of oxygen her pulse ox is 89-94%, she is afebrile, hemodynamically she is stable, she sits in a recliner, appears to be no acute distress, she continues on oral prednisone 60 mg daily, she is receiving Mucinex on an as-needed basis, and Tessalon Perles on as-needed basis for her cough, she continues on Lovenox 40 mg her last d-dimer was 1.73, no hemoptysis, Restoril labs have been reviewed from yesterday, no new subtle labs were today. Today's chest x-ray showed no change in the appearance of COVID pneumonia On 03/25/2021 patient seen in follow-up on medical surgical floor, she looks comfortable, resting comfortably in the chair, she is currently on 12 L of oxygen however her pulse ox is a 83-86%, no increased work of breathing, her FiO2 was increased to 15 L, occasional mildly congested cough, no phlegm production. Patient remains on inhalers, and she is on prednisone 60 mg daily, she is receiving Tessalon Perles, she is on prophylactic dose of Lovenox, taste follow-up chest x-ray shows continued bilateral reticulonodular multifocal opacities, without significant change. Today's labs have been reviewed, d-dimer is 1.15, troponin is less than 0.012. She is breathing comfortably. On 03/27/2021 patient seen in follow-up on medical surgical floor. She is currently on 12 L of oxygen, she is breathing comfortably, no chest pain, chest wall soreness has resolved, she is less congested, coughing less, seems to be quite comfortable. Her pulse ox on 12 L is 96%, and this Probably be further wean down, by signs have been stable, she's been afebrile. This had no acute events overnight On 03/31/2021 patient seen in follow-up on medical surgical floor. She is currently on 6 L of oxygen her pulse ox is 89%, she seems to breathing comfortably, does get short of breath with exertion, but overall her breathing has been improving, less cough and congestion, no wheezing. No Fever or chills, no complaints of chest discomfort. No nausea vomiting or diarrhea. Today's labs have been reviewed, showing white blood cell count of 10.2, hemoglobin of 11.9, d-dimer is 0.96, electrolytes and renal profile were within normal limits. Objective - Vital Signs Vital signs: Vital Signs Temp 98.3 F 03/31/21 14:00 Pulse 87 03/31/21 14:00 Resp 18 03/31/21 14:00 BP 131/80 03/31/21 14:00 Pulse Ox 96 03/31/21 14:00 Intake & Output 03/30/21 03/31/21 03/31/21 18:59 06:59 18:59 Other: Voiding Method Bedside Commode # Voids 3 - Exam GENERAL EXAM: Alert, pleasant, 70-year-old white female patient currently on 7 L of oxygen and patient is satting at around 96% comfortable in no apparent distress. Not requiring nonrebreather mask HEAD: Normocephalic/atraumatic. EYES: Normal reaction of pupils, equal size. Conjunctiva pink, sclera white. NOSE: Clear with pink turbinates. THROAT: No erythema or exudates. NECK: No masses, no JVD, no thyroid enlargement, no adenopathy. CHEST: No chest wall deformity. Symmetrical expansion. LUNGS: Equal air entry with his crackles and rhonchi CVS: Regular rate and rhythm, normal S1 and S2, no gallops, no murmurs, no rubs ABDOMEN: Soft, nontender. No hepatosplenomegaly, normal bowel sounds, no guarding or rigidity. EXTREMITIES: No clubbing, no edema, no cyanosis, 2+ pulses and upper and lower extremities. MUSCULOSKELETAL: Muscle strength and tone normal. Patient has deformity of the right arm, with history of multiple previous surgeries, extensive bone and nerve damage SPINE: No scoliosis or deformity SKIN: No rashes CENTRAL NERVOUS SYSTEM: Alert and oriented -3. No focal deficits, tone is normal in all 4 extremities. PSYCHIATRIC: Alert and oriented -3. Appropriate affect. Intact judgment and insight. - Labs CBC & Chem 7: 03/31/21 07:34 03/31/21 07:34 Labs: Abnormal Lab Results - Last 24 Hours (Table) 03/31/21 03/31/21 03/31/21 Range/Units 07:34 07:34 07:34 WBC 10.20 H (4.50-10.00) X 10*3/uL RBC 3.98 L (4.10-5.20) X 10*6/uL Hgb 11.9 L (12.0-15.0) g/dL MCHC 31.6 L (32.0-37.0) g/dL Plt Count 78 L (140-440) X 10*3/uL Plt Count Comment DECREASED A MPV 13.0 H (9.5-12.2) fL Immature Gran # 0.08 H (0.00-0.04) X 10*3/uL Neutrophils # 8.38 H (1.80-7.70) X 10*3/uL Immature Plt Fraction 12.2 H (1.1-6.1) % D-Dimer 0.96 H (<0.60) mg/L FEU BUN/Creatinine Ratio 22.50 H (12.00-20.00) Ratio AST 40 H (13-35) U/L ALT 80 H (8-44) U/L Assessment and Plan Plan: Assessment: #1. Acute hypoxic respiratory failure related to acute COVID 19 pneumonia, with onset of symptoms within 1 week of presentation, patient was started on Remdesivir on 03/08/2021 however her hypoxia had progressed and we stopped of Remdesivir and gave Toci on 03/14/2021 #2. Advanced COPD, used to wear home oxygen in the past, but most recently has not required it #3. Osteoarthritis #4. History of hepatitis C, treated with hormone #5. Former smoker #6. History of multiple surgeries involving her right wrist, with extensive joint and nerve damage. Patient was recommended to have right upper arm amputation however she opted against amputation #7. Fibromyalgia #8. Depression #9. Increased d-dimer without CT evidence of pulmonary embolism Plan: Vital signs have been stable, no fever or chills Continue weaning FiO2, currently at 7 L, maintaining O2 saturations at 89% or above Continue prednisone, continue Lovenox Once the patient is down to 5 L or less of supplemental oxygen she can be considered for discharge home on home oxygen Patient may benefit from subacute rehab after discharge, consult social work for evaluation I performed a history & physical examination of the patient and discussed their management with my nurse practitioner, Lucia Kinsey. I reviewed the nurse practitioner's note and agree with the documented findings and plan of care. Lung sounds are positive for diminished breath sounds with bilateral crackles. The findings and the impression was discussed with the patient. I attest to the documentation by the nurse practitioner. Time with Patient: Less than 30
[2021-03-31] MEDS: oxyCODONE-APAP 7.5-325MG 1 EACH TAB PO PRN (20:43)
[2021-03-31] MEDS: risperiDONE 2 MG TAB PO SCH (20:44)
[2021-03-31] MEDS: traZODone HCL 100 MG TAB PO SCH (20:44)
[2021-04-01] MEDS: LEVOTHYROXINE 50 MCG TAB PO SCH (05:57)
[2021-04-01] MEDS: SERTRALINE 100 MG TAB PO SCH (08:16)
[2021-04-01] MEDS: BENZONATATE 100 MG CAP PO SCH ×2 (08:16→16:47)
[2021-04-01] MEDS: predniSONE 20 MG TAB PO SCH (08:16)
[2021-04-01] MEDS: GABAPENTIN 400 MG CAP PO SCH ×2 (08:16→16:47)
[2021-04-01] MEDS: METOPROLOL TARTRATE 25 MG TAB PO SCH (08:17)
[2021-04-01] MEDS: ATORVASTATIN 10 MG TAB PO SCH (08:17)
[2021-04-01] MEDS: PANTOPRAZOLE 40 MG TABLET PO SCH (08:17)
[2021-04-01] MEDS: guaiFENesin 600 MG TABLET.ER PO SCH (08:17)
[2021-04-01] MEDS: CHOLECALCIFEROL 25 MCG (1000 IU) TABLET PO SCH (08:18)
[2021-04-01] MEDS: busPIRone HCl 10 MG TAB PO SCH (08:18)
[2021-04-01] MEDS: RALOXIFENE 60 MG TAB PO SCH (08:18)
[2021-04-01] MEDS: ASCORBIC ACID 500 MG TAB PO SCH (08:19)
[2021-04-01] MEDS: DOCUSATE 100 MG CAP PO SCH (08:19)
[2021-04-01] MEDS: CALCIUM CARBONATE 500 MG CHEWABLE PO SCH (08:20)
[2021-04-01] MEDS: ENOXAPARIN 40 MG/0.4 ML SYRINGE SQ SCH (08:20)
[2021-04-01] MEDS: SYMBICORT 160-4.5 MCG INHALER INHALATION SCH (08:36)
[2021-04-01] MEDS: ALBUTEROL HFA INHALER INHALATION SCH ×2 (08:36→16:29)
[2021-04-01 11:49] LABS: African American GFR (CKD) 85.4 (60.0-200.0); Albumin 3.7 g/dL (3.80-4.90); Albumin/Globulin Ratio 2.06 (1.60-3.17); Anion Gap 7.9 mmol/L (4.00-12.00); Calcium 8.6 mg/dL (8.7-10.3); Carbon Dioxide 21.1 mmol/L (21.6-31.8); Globulin 1.8 g/dL (1.6-3.3); Non-African American GFR(CKD) 73.7 (60.0-200.0); Potassium 4.1 mmol/L (3.5-5.5); Total Bilirubin 0.2 mg/dL (0.2-1.2); Total Protein 5.5 g/dL (6.2-8.2)
[2021-04-01 12:10] LABS: Basophils # (A) 0.01 X 10*3/uL (0.00-0.10); Basophils % (A) 0.1 %; Eosinophils # (A) 0.11 X 10*3/uL (0.04-0.35); Eosinophils % (A) 1.3 %; HCT 34.6 % (37.2-46.3); HGB 11.2 g/dL (12.0-15.0); Lymphocytes # (A) 1.22 X 10*3/uL (0.90-5.00); Lymphocytes % (A) 14.2 %; MCH 30.4 pg (27.0-32.0); MCHC 32.4 g/dL (32.0-37.0); Mean Platelet Volume 13.3 fL (9.5-12.2); Monocytes % (A) 4.7 %; Neutrophils # (A) 6.79 X 10*3/uL (1.80-7.70); Platelet Count 80 X 10*3/uL (140-440); RBC 3.68 X 10*6/uL (4.10-5.20); RDW 14.1 % (11.5-14.5); WBC 8.59 X 10*3/uL (4.50-10.00)
--- NOTE | 2021-04-01 12:47 | P.DS ---
Providers Date of admission: 03/07/21 20:32 Expected date of discharge: 04/01/21 Attending physician: Christiano Oliver MD Consults: 03/07/21 20:32 Consult Physician Routine Consulting Provider: Bhavin White Consult Reason/Comments: COVID PNA Do you want consulting provider notified?: Yes 03/24/21 18:05 Consult Physician Urgent Consulting Provider: Segundo Guerrier Consult Reason/Comments: chest pain Do you want consulting provider notified?: Yes Primary care physician: [facility] Course: HPI: Patient is a 70-year-old female with an extensive PMH including asthma, hypertension, hyperlipidemia, and hypothyroidism who presented to the emergency room with complaints of cough, shortness of breath, and fatigue. The patient reports that her symptoms started one week ago and that they have gradually worsened. She notes that her daughter was recently ill with COVID. Reports cough productive of gray colored phlegm along with shortness of breath, and diffuse body aches and subjective fevers. Also reports poor appetite with some diarrhea and subsequently decreased oral intake. Denied chest pain, vomiting, headaches, visual disturbances, numbness, or tingling. On presentation, the patient was hypoxic to 89% SpO2 on room air. The patient underwent an extensive evaluation in the emergency room with EKG showing normal sinus rhythm at [address]/T-wave changes noted as reviewed by me. Chest CTA was consistent with COVID pneumonia within no acute PE seen. Laboratory evaluation was remarkable for a platelet count of 70, lactic acid 2.7, total bilirubin 1.4, AST 42, alk phos 180, CRP 146, and Covid PCR positive. Hospital course and treatment: Patient was admitted to the hospital 19 infection with acute hypoxic respiratory failure. She required maximum oxygen with 100% nonrebreather and 50 L high flow. CTA was consistent with bilateral opacities. Patient was treated with Remdisivir and dexamethasone. She was evaluated by pulmonology. She continued to gradually improve, and by the time of discharge she is on 5 L of oxygen. Blood pressure was not very well controlled, medications adjusted and blood pressure is much better. She had a prolonged stay in the hospital with gradual improvement. She is being evaluated for home oxygen and will be discharged on home oxygen. Diagnoses upon discharge: COVID pneumonitis with acute hypoxic respiratory failure Thrombocytopenia COPD without exacerbation hyperlipidemia hypothyroidism Essential hypertension: Leukocytosis Patient Condition at Discharge: Fair Plan - Discharge Summary Discharge Rx Participant: No New Discharge Prescriptions: New Metoprolol Tartrate [Lopressor] 25 mg PO BID 30 Days #60 tab Continue Sertraline HCl [Zoloft] 200 mg PO DAILY Raloxifene [Evista] 60 mg PO DAILY risperiDONE [RisperDAL] 2 mg PO HS Levothyroxine Sodium [Synthroid] 50 mcg PO DAILY Gabapentin 800 mg PO TID Pantoprazole Sodium [Protonix] 40 mg PO DAILY Docusate [Colace] 100 mg PO BID #60 capsule oxyCODONE-APAP 7.5-325MG [Percocet 7.5-325 mg] 1 tab PO Q6H PRN PRN Reason: Pain busPIRone HCl [Buspar] 10 mg PO BID Ascorbic Acid [Vitamin C] 500 mg PO DAILY traZODone HCL 100 mg PO HS tiZANidine [Zanaflex] 4 mg PO TID PRN PRN Reason: Muscle Spasm Atorvastatin [Lipitor] 10 mg PO DAILY Calcium Carbonate [Calcium] 600 mg PO DAILY amLODIPine [Norvasc] 5 mg PO DAILY #30 tab lisinopriL [Zestril] 40 mg PO DAILY #30 tab Budesonide-Formot 160-4.5 Mcg [Symbicort 160-4.5 Mcg Inhaler] 2 puff INHALATION RT-BID 30 Days #1 inhaler Naproxen 500 mg PO BID PRN PRN Reason: Pain Nicotine 21Mg/24Hr Patch [Habitrol] 1 patch TRANSDERM DAILY PRN PRN Reason: Nicotine Cravings Discharge Medication List Raloxifene [Evista] 60 mg PO DAILY 02/07/15 [History] Sertraline HCl [Zoloft] 200 mg PO DAILY 02/07/15 [History] Gabapentin 800 mg PO TID 04/05/15 [History] Levothyroxine Sodium [Synthroid] 50 mcg PO DAILY 04/05/15 [History] risperiDONE [RisperDAL] 2 mg PO HS 04/05/15 [History] Pantoprazole Sodium [Protonix] 40 mg PO DAILY 08/28/16 [History] Docusate [Colace] 100 mg PO BID #60 capsule 10/01/16 [Rx] oxyCODONE-APAP 7.5-325MG [Percocet 7.5-325 mg] 1 tab PO Q6H PRN 07/03/19 [H istory] Ascorbic Acid [Vitamin C] 500 mg PO DAILY 01/14/20 [History] Atorvastatin [Lipitor] 10 mg PO DAILY 01/14/20 [History] Calcium Carbonate [Calcium] 600 mg PO DAILY 01/14/20 [History] busPIRone HCl [Buspar] 10 mg PO BID 01/14/20 [History] tiZANidine [Zanaflex] 4 mg PO TID PRN 01/14/20 [History] traZODone HCL 100 mg PO HS 01/14/20 [History] Budesonide-Formot 160-4.5 Mcg [Symbicort 160-4.5 Mcg Inhaler] 2 puff INHALATION RT-BID 30 Days #1 inhaler 01/18/20 [Rx] amLODIPine [Norvasc] 5 mg PO DAILY #30 tab 01/18/20 [Rx] lisinopriL [Zestril] 40 mg PO DAILY #30 tab 01/18/20 [Rx] Naproxen 500 mg PO BID PRN 03/07/21 [History] Nicotine 21Mg/24Hr Patch [Habitrol] 1 patch TRANSDERM DAILY PRN 03/07/21 [History] Metoprolol Tartrate [Lopressor] 25 mg PO BID 30 Days #60 tab 04/01/21 [Rx] Follow up Appointment(s)/Referral(s): Jerod Garnica MD [STAFF PHYSICIAN] - 3 Weeks [facility] [NON-STAFF] - As Needed (oxygen ) [facility] [NON-STAFF] - As Needed Michael Valdovinos DO [Primary Care Provider] - 1-2 days Patient Instructions/Handouts: Coronavirus Disease 2019 (COVID-19) Discharge Disposition: HOME WITH HOME HEALTH SERVICES
--- NOTE | 2021-04-01 14:06 | P.PN ---
Subjective Progress Note Date: 04/01/21 Principal diagnosis: Acute hypoxic respiratory failure secondary to acute Covid 19 pneumonia This is a 70-year-old white female patient with past medical history of advanced COPD used to wear oxygen at one point, currently not on any home oxygen, former smoker, hep C treated with Harvoni, osteoarthritis, fibromyalgia, who came to the emergency department on 03/07/2021 for evaluation of cough, dyspnea, fatigue and myalgias, her symptoms have been present for approximately one week. Patient has no contact with coronavirus. In addition she has poor appetite, nausea, vomiting and diarrhea, she has anginal chest tightness without central chest pain. Chest x-ray shows diffuse moderate interstitial opacities in the left mid to lower lung and right lung base, no pleural effusion or pneumothorax. CTA chest shows bilateral opacities. Admission labs showed white blood cell, 4.5, hemoglobin 13, platelet count of 70, lymphocyte count of 0.14, d-dimer is 1.40, sodium is 137, potassium is 4.6, chloride is 103, CO2 is 18, BUN is 20, creatinine is 1.04. Plasma lactic acid is 2.7, ferritin level is 484, total bilirubin is 1.4, AST is 42, ALT is 23, alkaline phosphatase is 180, LDH is 710, CRP is 146.4, pro calcitonin level is 0.11, COVID 19 PCR. She is currently on 4 L of oxygen process between 92-95%, she is afebrile, still dyspneic, but no acute distress. Patient was started on Decadron, vitamins, and we'll start the patient on Remdesivir Patient was reevaluated today on 03/09/2021, patient remains on 6 L high flow nasal cannula, O2 sats is 91%. Patient tells me that she feels short of breath, no cough no wheezing no fever no chills. Her T-max yesterday was 99.6 today temperature is 98.3. Her WBC count is 5.4, basic metabolic profile is normal renal profile is normal LDH on admission was 710 and C-reactive protein was 146. D-dimer 1.40 platelets are 70,000. On 03/10/2001 patient seen in follow-up on medical surgical floor, today is Remdesivir date 3, FiO2 requirement is currently at 12 L, pulse ox is between 92-96%, still congested, coughing, lung sounds reveal diminished breath sounds with some crackles at the bases. No fever. Continues on Decadron 6 mg daily, vitamins, she is on Mucinex, he hasn't had a recent chest x-ray done for a coupl e of days, her last d-dimer was on 2020 and was at 1.4, no recent LDH a CRP. She states she would like a nebulizer treatment however in view of her quit positive status she cannot have a nebulizer we will order albuterol which she can have 4 times daily scheduled and as needed when necessary every 2 hours. In addition patient is on Symbicort. On 03/15/2021 patient seen in follow-up on medical surgical floor, she continues to require high flow oxygen per 15 L high flow and are present a nonrebreather mask, she states her dyspnea is not worsened. Still coughing, and at times she is able to bring up some phlegm, her pulse ox is 91-92%, for chest pain, she is able to bring up some phlegm at times, no new chest x-ray today, yesterday she received 640 mg Tocilizumab in view of worsening hypoxia, she also remains on IV Solu-Medrol. D-dimer was 1.79 yesterday's labs, d-dimer and LDH a CRP will be ordered for tomorrow. No complaints chest pain, no hemoptysis, no fever. On 03/18/2001 patient seen in follow-up on medical surgical floor, she states she has no worsening dyspnea, although still requiring high flow oxygen at 15 L and 100% nonrebreather mask, and she seems to be breathing comfortably at this time, patient is trying to eat a cookie at the time of my examination, she has a nonrebreather mask off, and on 15 L of oxygen her pulse ox is 73%, but she looks comfortable, in the 100% nonrebreather mask will be placed back on her when she is done eating. He is calm and cooperative, she is oriented 3, no cough, no chest pain. Last chest x-ray was yesterday showing continue bilateral reticulonodular opacities consistent with COVID infection on the background of c hronic parenchymal and emphysematous changes, with no significant change from most recent chest x-ray. Her labs today show white blood cell, 19.1, hemoglobin of 14.4, CO2 is 21, the rest of the electrolytes are within normal limits, B1 is 25, creatinine 0.74, no nausea vomiting or diarrhea, patient is tolerating oral intake. She status post Toci, and she remains on Solu-Medrol at 40 mg every 8 h ours and prophylactic dose of Lovenox. On 03/19/2031 patient seen in follow-up on medical surgical floor, she still remains on high flow nasal cannula at 15 L and 100% nonrebreather mask, she does desaturate into the low 70s when she removes nonrebreather mask however she does not become any more short of breath, seems to be breathing very comfortably, she is currently sitting up in the chair, she is frequently reminded not to remove the nonrebreather mask, she states that she still has occasional cough with production of creamy white phlegm, no hemoptysis, no chest pain, lung sounds reveal some scattered crackles, she is alert and oriented 3, appears to be breathing quite comfortably, no new chest x-ray today, his labs reveal white blood cell count of 17.8, d-dimer is 1.73, BMP is pending, will continue current medical treatment and patient is on prophylactic dose Lovenox, remains on IV Solu-Medrol 40 mg every 8 hours, Symbicort, vitamins, and inhalers On 03/20/2021 patient is seen in follow-up on medical surgical floor, she is currently just on 15 L high flow nasal cannula, very comfortable, she is resting comfortably in bed, denies any worsening dyspnea, she does desaturate with activity, but does recover, not requiring her percent nonrebreathing mask today, she remains on IV Solu-Medrol 40 mg every 8 hours, she is on Lovenox 40 mg daily, she is on inhalers, vitamins. Today's labs have been reviewed showing white count, 12.23, no new d-dimer, electrolytes are within normal limits, BUN of 38 creatinine is 1.0. No new chest x-ray, On 03/21/2021 patient seen in follow-up on medical surgical floor, she is resting comfortably, she is currently off the nonrebreather mask, her pulse ox on 10 L per high flow nasal cannula is 90%, vital signs have been stable, no fever or chills, no worsening dyspnea, occasional congested cough, no sputum production, no chest discomfort. No nausea vomiting or diarrhea, patient continues on IV Solu-Medrol, 40 mg every 8 hours, prophylactic dose of Lovenox. No new labs today, no new chest x-ray, clinically improving On 03/22/2021 patient seen in follow-up on medical surgical floor, today she is on 10 L of oxygen her pulse ox is 92%, she still has a congested cough, and she states her chest hurts with coughing, and feels achy. Otherwise no worsening dyspnea. Sounds positive for diffuse crackles and wheezing, IV Solu-Medrol has been switched to oral prednisone, she is on Mucinex, she is on Lovenox prophylactic dose, we will obtain follow-up chest x-ray tomorrow, she's had no nausea vomiting or diarrhea. On 03/23/2001 patient seen in follow-up on medical surgical floor, she continues to have congestive cough, she states her chest wall is sore with coughing or deep breathing, she is currently on 15 L of oxygen her pulse ox is 89-94%, she is afebrile, hemodynamically she is stable, she sits in a recliner, appears to be no acute distress, she continues on oral prednisone 60 mg daily, she is receiving Mucinex on an as-needed basis, and Tessalon Perles on as-needed basis for her cough, she continues on Lovenox 40 mg her last d-dimer was 1.73, no hemoptysis, Restoril labs have been reviewed from yesterday, no new subtle labs were today. Today's chest x-ray showed no change in the appearance of COVID pneumonia On 03/25/2021 patient seen in follow-up on medical surgical floor, she looks comfortable, resting comfortably in the chair, she is currently on 12 L of oxygen however her pulse ox is a 83-86%, no increased work of breathing, her FiO2 was increased to 15 L, occasional mildly congested cough, no phlegm production. Patient remains on inhalers, and she is on prednisone 60 mg daily, she is receiving Tessalon Perles, she is on prophylactic dose of Lovenox, taste follow-up chest x-ray shows continued bilateral reticulonodular multifocal opacities, without significant change. Today's labs have been reviewed, d-dimer is 1.15, troponin is less than 0.012. She is breathing comfortably. On 03/27/2021 patient seen in follow-up on medical surgical floor. She is currently on 12 L of oxygen, she is breathing comfortably, no chest pain, chest wall soreness has resolved, she is less congested, coughing less, seems to be quite comfortable. Her pulse ox on 12 L is 96%, and this Probably be further wean down, by signs have been stable, she's been afebrile. This had no acute events overnight On 03/31/2021 patient seen in follow-up on medical surgical floor. She is currently on 6 L of oxygen her pulse ox is 89%, she seems to breathing comfortably, does get short of breath with exertion, but overall her breathing has been improving, less cough and congestion, no wheezing. No Fever or chills, no complaints of chest discomfort. No nausea vomiting or diarrhea. Today's labs have been reviewed, showing white blood cell count of 10.2, hemoglobin of 11.9, d-dimer is 0.96, electrolytes and renal profile were within normal limits. On 04/01/2021 patient seen in follow-up on medical surgical floor. She is breathing comfortably, she is down to 5 L of oxygen pulse ox is 90%, no worsening cough, no worsening dyspnea, complaints of chest discomfort, she is afebrile, she's had no acute events overnight, nausea vomiting or diarrhea. Last chest x-ray was done on 03/29/2021 showing continued diffuse interstitial infiltrates, clinically she has been stable and improving. Today's labs have been reviewed showing white blood cell count of 8.59, hemoglobin of 11.2, sodium is 140, potassium is 4.1, chloride is 111, CO2 is 21, BUN is 20 and creatinine 0.8. Her LDH from 03/19/2021 was showing improvement, CRP has also improved from admission Objective - Vital Signs Vital signs: Vital Signs Temp 97.8 F 04/01/21 09:38 Pulse 86 04/01/21 09:38 Resp 18 04/01/21 09:38 BP 151/81 04/01/21 09:38 Pulse Ox 90 L 04/01/21 09:38 Intake & Output 03/31/21 04/01/21 04/01/21 18:59 06:59 18:59 Other: Voiding Method Bedside Commode # Voids 3 3 - Exam GENERAL EXAM: Alert, pleasant, 70-year-old white female patient currently on 5 L of oxygen and patient is satting at around 90% comfortable in no apparent distress. Not requiring nonrebreather mask HEAD: Normocephalic/atraumatic. EYES: Normal reaction of pupils, equal size. Conjunctiva pink, sclera white. NOSE: Clear with pink turbinates. THROAT: No erythema or exudates. NECK: No masses, no JVD, no thyroid enlargement, no adenopathy. CHEST: No chest wall deformity. Symmetrical expansion. LUNGS: Equal air entry with his crackles and rhonchi CVS: Regular rate and rhythm, normal S1 and S2, no gallops, no murmurs, no rubs ABDOMEN: Soft, nontender. No hepatosplenomegaly, normal bowel sounds, no guarding or rigidity. EXTREMITIES: No clubbing, no edema, no cyanosis, 2+ pulses and upper and lower extremities. MUSCULOSKELETAL: Muscle strength and tone normal. Patient has deformity of the right arm, with history of multiple previous surgeries, extensive bone and nerve damage SPINE: No scoliosis or deformity SKIN: No rashes CENTRAL NERVOUS SYSTEM: Alert and oriented -3. No focal deficits, tone is normal in all 4 extremities. PSYCHIATRIC: Alert and oriented -3. Appropriate affect. Intact judgment and insight. - Labs CBC & Chem 7: 04/01/21 07:18 04/01/21 07:18 Labs: Abnormal Lab Results - Last 24 Hours (Table) 04/01/21 04/01/21 Range/Units 07:18 07:18 RBC 3.68 L (4.10-5.20) X 10*6/uL Hgb 11.2 L (12.0-15.0) g/dL Hct 34.6 L (37.2-46.3) % Plt Count 80 L (140-440) X 10*3/uL MPV 13.3 H (9.5-12.2) fL Immature Gran # 0.06 H (0.00-0.04) X 10*3/uL Chloride 111 H (96-109) mmol/L Carbon Dioxide 21.1 L (21.6-31.8) mmol/L BUN/Creatinine Ratio 25.00 H (12.00-20.00) Ratio Calcium 8.6 L (8.7-10.3) mg/dL AST 41 H (13-35) U/L ALT 84 H (8-44) U/L Total Protein 5.5 L (6.2-8.2) g/dL Albumin 3.70 L (3.80-4.90) g/dL Assessment and Plan Plan: Assessment: #1. Acute hypoxic respiratory failure related to acute COVID 19 pneumonia, with onset of symptoms within 1 week of presentation, patient was started on Remdesivir on 03/08/2021 however her hypoxia had progressed and we stopped of Remdesivir and gave Toci on 03/14/2021 #2. Advanced COPD, used to wear home oxygen in the past, but most recently has not required it #3. Osteoarthritis #4. History of hepatitis C, treated with hormone #5. Former smoker #6. History of multiple surgeries involving her right wrist, with extensive joint and nerve damage. Patient was recommended to have right upper arm amputation however she opted against amputation #7. Fibromyalgia #8. Depression #9. Increased d-dimer without CT evidence of pulmonary embolism Plan: Patient is doing well, no worsening dyspnea Breathing quite comfortably FiO2 down to 5 L Inflammatory markers were improving She's had no fever or chills She stable for discharge home from pulmonary [facility] on home oxygen Discharge planning has set up home health nursing visits. Patient follow-up with Dr. White in 2 weeks. I performed a history & physical examination of the patient and discussed their management with my nurse practitioner, Lucia Kinsey. I reviewed the nurse practitioner's note and agree with the documented findings and plan of care. Lung sounds are positive for diminished breath sounds with bilateral crackles. The findings and the impression was discussed with the patient. I attest to the documentation by the nurse practitioner. Time with Patient: Less than 30
[2021-04-01 14:20] VITALS: BP 137/79; PULSE 90; RESP 20; TEMP 98.6
== END 2021-04-01 18:35 | disposition home health service (06) | DRG 177 ==
LOC: EC 16:57 → 4SSUR 20:32
PROVIDERS: ADMIT Internal Medicine; ATTEND Internal Medicine
PROC: XW033E5 Introduction of Remdesivir Anti-infective into Peripheral Vein, Percutaneous Approach, New Technology Group 5 (ICD-10-PCS; principal; 2021-03-08)
PROC: 5A0955A Assistance with Respiratory Ventilation, Greater than 96 Consecutive Hours, High Flow/Velocity Cannula (ICD-10-PCS; 2021-03-09)
DX: U07.1 COVID-19 (principal); J12.82 Pneumonia due to coronavirus disease 2019; J96.01 Acute respiratory failure with hypoxia; J44.0 Chronic obstructive pulmonary disease with (acute) lower respiratory infection; E87.2 Acidosis; M06.9 Rheumatoid arthritis, unspecified; M79.7 Fibromyalgia; D69.6 Thrombocytopenia, unspecified; D72.810 Lymphocytopenia; E03.9 Hypothyroidism, unspecified; E78.5 Hyperlipidemia, unspecified; F10.20 Alcohol dependence, uncomplicated; F17.200 Nicotine dependence, unspecified, uncomplicated; F32.9 Major depressive disorder, single episode, unspecified; G89.29 Other chronic pain; M54.9 Dorsalgia, unspecified; R79.1 Abnormal coagulation profile; I10 Essential (primary) hypertension; M19.90 Unspecified osteoarthritis, unspecified site; R04.0 Epistaxis; Z85.528 Personal history of other malignant neoplasm of kidney; Z90.5 Acquired absence of kidney; Z90.710 Acquired absence of both cervix and uterus; Z82.3 Family history of stroke; Z80.1 Family history of malignant neoplasm of trachea, bronchus and lung; Z79.899 Other long term (current) drug therapy; Z79.890 Hormone replacement therapy; Z79.51 Long term (current) use of inhaled steroids; Z79.01 Long term (current) use of anticoagulants; G43.909 Migraine, unspecified, not intractable, without status migrainosus; Z86.19 Personal history of other infectious and parasitic diseases; Z88.6 Allergy status to analgesic agent; Z88.5 Allergy status to narcotic agent; Z88.0 Allergy status to penicillin
CPT/HCPCS: 36415; 36600; 71045; 71275; 80048; 80053; 82728; 82805; 83605; 83615; 83735; 84145; 84484; 85025; 85027; 85379; 85610; 85730; 86140; 87635; 93005; 93306; 94640; 94760; 99291

== ENCOUNTER 2021-04-12 11:45 | Inpatient (IN) | payer MEDICARE, OTHER ==
[2021-04-12] MEDS ORDERED: IPRATROPIUM-ALBUTEROL 3 ML NEB INHALATION STA (12:01)
--- NOTE | 2021-04-12 12:04 | ED ---
General Adult HPI - General Stated complaint: Hypotension,NATANAEL Time Seen by Provider: 04/12/21 11:50 Source: patient, RN notes reviewed, old records reviewed - History of Present Illness Initial comments: This is a 70-year-old female presents emergency department with past medical history significant for congestive heart failure and COPD. Patient states one month ago she had a cold that she was brought into the hospital stay for 3 weeks she was let go one week ago and ever since that time she still been short of breath on 5 L of oxygen at home. Patient states she was on no oxygen prior to cope. Patient states today she woke up and her breathing was worse so her visiting nurse told her to come to the hospital. Patient denies any chest pain or palpitations. Patient denies any fever chills patient states she does have a cough. Patient denies any abdominal pain patient denies nausea vomiting diarrhea. Patient denies any lightheadedness dizziness. Patient denies headache patient denies numbness weakness. Patient denies any leg swelling or calf tenderness. Any exertion increases the difficulty breathing. - Related Data Home Medications Medication Instructions Recorded Confirmed Raloxifene [Evista] 60 mg PO DAILY 02/07/15 03/07/21 Sertraline HCl [Zoloft] 200 mg PO DAILY 02/07/15 03/07/21 Gabapentin 800 mg PO TID 04/05/15 03/07/21 Levothyroxine Sodium [Synthroid] 50 mcg PO DAILY 04/05/15 03/07/21 risperiDONE [RisperDAL] 2 mg PO HS 04/05/15 03/07/21 Pantoprazole Sodium [Protonix] 40 mg PO DAILY 08/28/16 03/07/21 oxyCODONE-APAP 7.5-325MG [Percocet 1 tab PO Q6H PRN 07/03/19 03/07/21 7.5-325 mg] Ascorbic Acid [Vitamin C] 500 mg PO DAILY 01/14/20 03/07/21 Atorvastatin [Lipitor] 10 mg PO DAILY 01/14/20 03/07/21 Calcium Carbonate [Calcium] 600 mg PO DAILY 01/14/20 03/07/21 busPIRone HCl [Buspar] 10 mg PO BID 01/14/20 03/07/21 tiZANidine [Zanaflex] 4 mg PO TID PRN 01/14/20 03/07/21 traZODone HCL 100 mg PO HS 01/14/20 03/07/21 Naproxen 500 mg PO BID PRN 03/07/21 03/07/21 Nicotine 21Mg/24Hr Patch [Habitrol] 1 patch TRANSDERM DAILY PRN 03/07/21 03/07/21 Previous Rx's Medication Instructions Recorded Docusate [Colace] 100 mg PO BID #60 capsule 10/01/16 Budesonide-Formot 160-4.5 Mcg 2 puff INHALATION RT-BID 30 Days 01/18/20 [Symbicort 160-4.5 Mcg Inhaler] #1 inhaler amLODIPine [Norvasc] 5 mg PO DAILY #30 tab 01/18/20 lisinopriL [Zestril] 40 mg PO DAILY #30 tab 01/18/20 Metoprolol Tartrate [Lopressor] 25 mg PO BID 30 Days #60 tab 04/01/21 Allergies Allergy/AdvReac Type Severity Reaction Status Date / Time Penicillins Allergy Dyspnea Verified 03/07/21 21:18 aspirin AdvReac Nausea & Verified 03/07/21 21:18 Vomiting morphine AdvReac Hallucinati Verified 03/07/21 21:18 ons Review of Systems ROS Statement: Those systems with pertinent positive or pertinent negative responses have been documented in the HPI. ROS Other: All systems not noted in ROS Statement are negative. Past Medical History Past Medical History: Cancer, COPD, Fibromyalgia, Osteoarthritis (OA), Pneumonia, Rheumatoid Arthritis (RA) Additional Past Medical History / Comment(s): Pt tested covid + 03/07/21 [facility] ER. 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 L hand and ulcer on L wrist History of Any Multi-Drug Resistant Organisms: None Reported Past Surgical History: Back Surgery, Hysterectomy, Joint Replacement, Orthopedic Surgery Additional Past Surgical History / Comment(s): L partial nephrectomy, R wrist surgery for fracture, 3 L spine surgeries, 2 cervical surgeries, L hemiar throplasty d/t fracture, colonoscopy Past Anesthesia/Blood Transfusion Reactions: No Reported Reaction Smoking Status: Former smoker - Past Family History Father Family Medical History: Cancer Additional Family Medical History / Comment(s): LUNG CA Mother Family Medical History: Osteoarthritis (OA) General Exam - General Exam Comments Initial Comments: GENERAL: Patient is well-developed and well-nourished. Patient is nontoxic and well- hydrated and is in mild distress. ENT: Neck is soft and supple. No significant lymphadenopathy is noted. Oropharynx is clear. Moist mucous membranes. Neck has full range of motion without eliciting any pain. EYES: The sclera were anicteric and conjunctiva were pink and moist. Extraocular movements were intact and pupils were equal round and reactive to light. Eyelids were unremarkable. PULMONARY: Unlabored respirations. Good breath sounds bilaterally. Patient has crackles in the right base. Patient is on 5 L and oxygenating in the high 90s. CARDIOVASCULAR: There is a regular rate and rhythm without any murmurs gallops or rubs. ABDOMEN: Soft and nontender with normal bowel sounds. No palpable organomegaly was noted. There is no palpable pulsatile mass. SKIN: Skin is clear with no lesions or rashes and otherwise unremarkable. NEUROLOGIC: Patient is alert and oriented x3. Cranial nerves II through XII are grossly intact. Motor and sensory are also intact. Normal speech, volume and content. Symmetrical smile. MUSCULOSKELETAL: Normal extremities with adequate strength and full range of motion. No lower extremity swelling or edema. No calf tenderness. LYMPHATICS: No significant lymphadenopathy is noted PSYCHIATRIC: Normal psychiatric evaluation. Course Vital Signs 04/12/21 04/12/21 04/12/21 11:53 12:51 13:03 Temperature 98.0 F Pulse Rate 82 78 86 Respiratory 16 Rate Blood Pressure 119/83 O2 Sat by Pulse 99 Oximetry Medical Decision Making - Medical Decision Making EKG shows normal sinus rhythm at 77 bpm VA interval is 166 dresses 80 QT interval is 418 QTC is 473. Patient's EKG shows no ST segment elevation or depression. Chest shows pneumonia consistent with COVID pneumonia. I spoke with Dr. Warner he agreed to admit the patient admitted the patient I wrote admitting orders. - Lab Data Result diagrams: 04/12/21 12:11 04/12/21 12:11 Lab Results 04/12/21 04/12/21 04/12/21 Range/Units 12:11 12:11 12:11 WBC 6.2 (3.8-10.6) k/uL RBC 4.07 (3.80-5.40) m/uL Hgb 12.1 (11.4-16.0) gm/dL Hct 37.8 (34.0-46.0) % MCV 93.0 (80.0-100.0) fL MCH 29.6 (25.0-35.0) pg MCHC 31.9 (31.0-37.0) g/dL RDW 15.1 (11.5-15.5) % Plt Count 80 L (150-450) k/uL MPV 9.9 Neutrophils % 78 % Lymphocytes % 12 % Monocytes % 5 % Eosinophils % 3 % Basophils % 0 % Neutrophils # 4.8 (1.3-7.7) k/uL Lymphocytes # 0.8 L (1.0-4.8) k/uL Monocytes # 0.3 (0-1.0) k/uL Eosinophils # 0.2 (0-0.7) k/uL Basophils # 0.0 (0-0.2) k/uL PT 10.0 (9.0-12.0) sec INR 0.9 (<1.2) APTT 21.6 L (22.0-30.0) sec D-Dimer 0.84 H (<0.60) mg/L FEU Sodium 141 (137-145) mmol/L Potassium 4.4 (3.5-5.1) mmol/L Chloride 110 H (98-107) mmol/L Carbon Dioxide 21 L (22-30) mmol/L Anion Gap 10 mmol/L BUN 12 (7-17) mg/dL Creatinine 0.77 (0.52-1.04) mg/dL Est GFR (CKD-EPI)AfAm 89 (>60 ml/min/1.73 sqM) Est GFR (CKD-EPI)NonAf 77 (>60 ml/min/1.73 sqM) Glucose 92 (74-99) mg/dL Plasma Lactic Acid Brennan (0.7-2.0) mmol/L Calcium 9.2 (8.4-10.2) mg/dL Magnesium 1.6 (1.6-2.3) mg/dL Total Bilirubin 0.5 (0.2-1.3) mg/dL AST 24 (14-36) U/L ALT 11 (4-34) U/L Alkaline Phosphatase 80 (38-126) U/L Troponin I (0.000-0.034) ng/mL NT-Pro-B Natriuret Pep pg/mL Total Protein 6.2 L (6.3-8.2) g/dL Albumin 3.6 (3.5-5.0) g/dL 04/12/21 04/12/21 04/12/21 Range/Units 12:11 12:11 12:11 WBC (3.8-10.6) k/uL RBC (3.80-5.40) m/uL Hgb (11.4-16.0) gm/dL Hct (34.0-46.0) % MCV (80.0-100.0) fL MCH (25.0-35.0) pg MCHC (31.0-37.0) g/dL RDW (11.5-15.5) % Plt Count (150-450) k/uL MPV Neutrophils % % Lymphocytes % % Monocytes % % Eosinophils % % Basophils % % Neutrophils # (1.3-7.7) k/uL Lymphocytes # (1.0-4.8) k/uL Monocytes # (0-1.0) k/uL Eosinophils # (0-0.7) k/uL Basophils # (0-0.2) k/uL PT (9.0-12.0) sec INR (<1.2) APTT (22.0-30.0) sec D-Dimer (<0.60) mg/L FEU Sodium (137-145) mmol/L Potassium (3.5-5.1) mmol/L Chloride (98-107) mmol/L Carbon Dioxide (22-30) mmol/L Anion Gap mmol/L BUN (7-17) mg/dL Creatinine (0.52-1.04) mg/dL Est GFR (CKD-EPI)AfAm (>60 ml/min/1.73 sqM) Est GFR (CKD-EPI)NonAf (>60 ml/min/1.73 sqM) Glucose (74-99) mg/dL Plasma Lactic Acid Brennan 2.2 H* (0.7-2.0) mmol/L Calcium (8.4-10.2) mg/dL Magnesium (1.6-2.3) mg/dL Total Bilirubin (0.2-1.3) mg/dL AST (14-36) U/L ALT (4-34) U/L Alkaline Phosphatase (38-126) U/L Troponin I <0.012 (0.000-0.034) ng/mL NT-Pro-B Natriuret Pep 514 pg/mL Total Protein (6.3-8.2) g/dL Albumin (3.5-5.0) g/dL Disposition Clinical Impression: Pneumonia due to COVID-19 virus Disposition: ADMITTED IP TO THIS HOSP Referrals: Michael Valdovinos DO [Primary Care Provider] - 1-2 days Time of Disposition: 13:34
[2021-04-12 12:32] LABS: Albumin 3.6 g/dL (3.5-5.0); Calcium 9.2 mg/dL (8.4-10.2); Magnesium 1.6 mg/dL (1.6-2.3); Potassium 4.4 mmol/L (3.5-5.1); Total Bilirubin 0.5 mg/dL (0.2-1.3); Total Protein 6.2 g/dL (6.3-8.2)
[2021-04-12 12:37] LABS: Basophils % (A) 0 %; Eosinophils # (A) 0.2 k/uL (0-0.7); Eosinophils % (A) 3 %; HCT 37.8 % (34.0-46.0); HGB 12.1 gm/dL (11.4-16.0); Lymphocytes # (A) 0.8 k/uL (1.0-4.8); Lymphocytes % (A) 12 %; MCH 29.6 pg (25.0-35.0); MCHC 31.9 g/dL (31.0-37.0); Mean Platelet Volume 9.9; Monocytes # (A) 0.3 k/uL (0-1.0); Monocytes % (A) 5 %; Neutrophils # (A) 4.8 k/uL (1.3-7.7); Neutrophils % (A) 78 %; RBC 4.07 m/uL (3.80-5.40); RDW 15.1 % (11.5-15.5); WBC 6.2 k/uL (3.8-10.6)
[2021-04-12 12:43] LABS: Platelet Count 80 k/uL (150-450)
[2021-04-12 12:56] LABS: INR 0.9 (<1.2)
--- NOTE | 2021-04-12 12:56 | XR ---
EXAMINATION TYPE: XR chest 2V DATE OF EXAM: 04/12/2021 COMPARISON: Chest x-ray 03/29/2021, chest CT 03/07/2021 HISTORY: Bullae breathing TECHNIQUE: Frontal and lateral views of the chest are obtained. FINDINGS: The interstitial changes seen on previous exam are again noted, lung volumes are lower. Qu estion some confluent airspace disease. No evident pneumothorax or pleural effusion. Postop changes a re noted in the thoracolumbar spine. Cardiac mediastinal silhouette is stable. IMPRESSION: Interstitial lung disease, correlate for pneumonia, there is underlying emphysema, bronc hiectasis
[2021-04-12 13:09] LABS: Partial Thromboplastin Time 21.6 sec (22.0-30.0)
[2021-04-12] MEDS ORDERED: NAPROXEN 250 MG TAB PO PRN (15:12)
[2021-04-12] MEDS ORDERED: tiZANidine 4 MG TAB PO PRN (15:12)
--- NOTE | 2021-04-12 15:27 | P.HPIM ---
History of Present Illness H&P Date: 04/12/21 Chief Complaint: Shortness of breath This is a 70-year-old female with complex past medical history noted below significant for end-stage COPD and underlying interstitial lung disease that presented to the hospital with worsening shortness of breath and dizziness. Patient was discharged from the hospital approximately 10 days ago after a prolonged hospitalization for almost 25 days where she was treated for COVID-19 pneumonia and hypoxic respiratory failure. Patient went home on 5 L of oxygen and said that her shortness of breath never went away. Initially she was able to ambulate at home for a few steps before getting short of breath. I spoke to her daughter on the phone to obtain further history. She said that for the past few days when patient's get up her oxygen saturation dropped to the low 80s on 5 L of oxygen. Patient reports feeling short of breath worse with ambulation. She is having intermittent cough that is nonproductive. She denies any fevers or chills. She is having chest discomfort in the middle of her chest with deep breath that was present throughout her last admission. Patient told me that she does have a nebulizer at home but did not have a prescription for the medication to use in the nebulizer. She was evaluated in the ER and x-ray showed evidence of interstitial lung disease and underlying emphysema/bronchiectasis. Patient was admitted to the hospital for observation. Review of Systems Review of system: 14 points review of systems were obtained and were negative except to what were mentioned in the HPI. Past Medical History Past Medical History: Cancer, COPD, Fibromyalgia, Osteoarthritis (OA), Pneumonia, Rheumatoid Arthritis (RA) Additional Past Medical History / Comment(s): Pt tested covid + 03/07/21 [facility] ER. 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 L hand and ulcer on L wrist History of Any Multi-Drug Resistant Organisms: None Reported Past Surgical History: Back Surgery, Hysterectomy, Joint Replacement, Orthopedic Surgery Additional Past Surgical History / Comment(s): L partial nephrectomy, R wrist surgery for fracture, 3 L spine surgeries, 2 cervical surgeries, L he miarthroplasty d/t fracture, colonoscopy Past Anesthesia/Blood Transfusion Reactions: No Reported Reaction Past Psychological History: Depression Additional Psychological History / Comment(s): Pt resides alone. She uses a wa lker to ambulate. She does not drive, her braeden drives her places. Smoking Status: Former smoker Past Alcohol Use History: None Reported Additional Past Alcohol Use History / Comment(s): Pt started smoking in 1962 and quit in 2019. She denied any alcohol use. Past Drug Use History: None Reported Additional Drug Use History / Comment(s): Pt denied any drug use - Past Family History Father Family Medical History: Cancer Additional Family Medical History / Comment(s): LUNG CA Mother Family Medical History: Osteoarthritis (OA) Medications and Allergies Home Medications Medication Instructions Recorded Confirmed Type Raloxifene [Evista] 60 mg PO DAILY 02/07/15 04/12/21 History Sertraline HCl [Zoloft] 200 mg PO DAILY 02/07/15 04/12/21 History Gabapentin 800 mg PO TID 04/05/15 04/12/21 History Levothyroxine Sodium [Synthroid] 50 mcg PO DAILY 04/05/15 04/12/21 History risperiDONE [RisperDAL] 2 mg PO HS 04/05/15 04/12/21 History Pantoprazole Sodium [Protonix] 40 mg PO DAILY 08/28/16 04/12/21 History Docusate [Colace] 100 mg PO BID #60 capsule 10/01/16 04/12/21 Rx oxyCODONE-APAP 7.5-325MG [Percocet 1 tab PO Q6H PRN 07/03/19 04/12/21 History 7.5-325 mg] Ascorbic Acid [Vitamin C] 500 mg PO DAILY 01/14/20 04/12/21 History Atorvastatin [Lipitor] 10 mg PO DAILY 01/14/20 04/12/21 History Calcium Carbonate [Calcium] 600 mg PO DAILY 01/14/20 04/12/21 History busPIRone HCl [Buspar] 10 mg PO BID 01/14/20 04/12/21 History tiZANidine [Zanaflex] 4 mg PO TID PRN 01/14/20 04/12/21 History traZODone HCL 100 mg PO HS 01/14/20 04/12/21 History Budesonide-Formot 160-4.5 Mcg 2 puff INHALATION RT-BID 30 Days 01/18/20 04/12/21 Rx [Symbicort 160-4.5 Mcg Inhaler] #1 inhaler Naproxen 500 mg PO BID PRN 03/07/21 04/12/21 History Nicotine 21Mg/24Hr Patch [Habitrol] 1 patch TRANSDERM DAILY PRN 03/07/21 04/12/21 History Allergies Allergy/AdvReac Type Severity Reaction Status Date / Time Penicillins Allergy Dyspnea Verified 04/12/21 13:47 aspirin AdvReac Nausea & Verified 04/12/21 13:47 Vomiting morphine AdvReac Hallucinati Verified 04/12/21 13:47 ons Physical Exam Vitals: Vital Signs Temp Pulse Pulse Resp BP BP Pulse Ox 04/12/21 14:17 98.0 F 93 20 109/62 99 04/12/21 14:09 93 20 109/62 99 04/12/21 14:00 97.9 F 93 18 157/72 95 04/12/21 13:09 86 20 135/83 99 04/12/21 13:03 86 04/12/21 12:51 78 04/12/21 12:09 88 20 119/83 99 04/12/21 11:53 98.0 F 82 16 119/83 99 Intake and Output 04/12/21 04/12/21 04/12/21 06:59 14:59 22:59 Other: Weight 77.111 kg General: The patient is awake and alert, in no distress Eye: there is normal conjunctiva bilaterally. Neck: The neck is supple, there is no JVD. Cardiovascular: Normal S1-S2, no S3-S4, no murmurs. Respiratory: Lungs scattered crackles all over the lung Gastrointestinal: Abdomen is soft, nontender Musculoskeletal: There is no pedal edema. Neurological:. Speech is normal. Skin: Skin is warm and dry Results CBC & Chem 7: 04/12/21 12:11 04/12/21 12:11 Labs: Abnormal Lab Results - Last 24 Hours (Table) 04/12/21 04/12/21 04/12/21 Range/Units 12:11 12:11 12:11 Plt Count 80 L (150-450) k/uL Lymphocytes # 0.8 L (1.0-4.8) k/uL APTT 21.6 L (22.0-30.0) sec D-Dimer 0.84 H (<0.60) mg/L FEU Chloride 110 H (98-107) mmol/L Carbon Dioxide 21 L (22-30) mmol/L Plasma Lactic Acid Brennan (0.7-2.0) mmol/L Total Protein 6.2 L (6.3-8.2) g/dL 04/12/21 Range/Units 12:11 Plt Count (150-450) k/uL Lymphocytes # (1.0-4.8) k/uL APTT (22.0-30.0) sec D-Dimer (<0.60) mg/L FEU Chloride (98-107) mmol/L Carbon Dioxide (22-30) mmol/L Plasma Lactic Acid Brennan 2.2 H* (0.7-2.0) mmol/L Total Protein (6.3-8.2) g/dL Thrombosis Risk Factor Assmnt - Choose All That Apply Each Risk Factor Represents 2 Points: Age 61-74 years Thrombosis Risk Factor Assessment Total Risk Factor Score: 2 Thrombosis Risk Factor Assessment Level: Low Risk Assessment and Plan Assessment: This is a 70-year-old female with past medical history noted below that presented to the emergency room with worsening dyspnea. Patient was evaluated in the ER and admitted to the hospital for further management of her medical problems noted below. 1. Progressive dyspnea, probably secondary to underlying end-stage COPD/emphysema/bronchiectasis. I would start the patient on DuoNeb's every 4 hours and continue Symbicort twice daily. Start Mucinex 1200 mg twice daily. I do not believe that patient is in COPD exacerbation. Patient received IV Solu- Medrol for 10 days during her last hospital stay with a minimal improvement in her dyspnea. I would consult pulmonology for further evaluation. Doubt pneumonia clinically but I would obtain a pro-calcitonin for further evaluation. No evidence of heart failure as BNP is normal and echocardiogram during last admission showed preserved ejection fraction 2. Elevated d-dimer, trending down compared to last admission. During last admission patient has CT angiogram of the chest that was negative for PE. 3. Acute on chronic hypoxic respiratory failure on home O2 4. End stage COPD with long history of tobacco abuse 5. Dizziness, I'll obtain orthostatic blood pressure. Also check a.m. cortisol level 6. Chronic medical problems: Hypertension, hyperlipidemia, hypothyroidism 7. DVT prophylaxis with subcu Lovenox 8. CODE STATUS: The patient is full code
--- NOTE | 2021-04-12 15:29 | P.PN ---
Progress Note - Text Progress Note Date: 04/12/21 Advanced Care Planning Active Diagnosis: End-stage COPD with dyspnea Persons present: Patient and her daughter over the phone Summary: Discussed the patient's goals of care in detail. Patient and her daughter are not ready for comfort care or additive care. They both want to try anything possible to prolong patient life including cardiac resuscitation and intubation if needed. Patient is a full code. Time spent: Total time spent face to face in education and discussion directly related to advanced care plannin minutes
[2021-04-12] MEDS: GABAPENTIN 400 MG CAP PO SCH ×2 (15:56→21:20)
[2021-04-12] MEDS ORDERED: BUDESONIDE 0.5 MG/2 ML NEBU INHALATION SCH (20:00)
[2021-04-12] MEDS: DOCUSATE 100 MG CAP PO SCH (21:20)
[2021-04-12] MEDS: busPIRone HCl 10 MG TAB PO SCH (21:20)
[2021-04-12] MEDS: guaiFENesin 600 MG TABLET.ER PO SCH (21:20)
[2021-04-12] MEDS: traZODone HCL 100 MG TAB PO SCH (21:20)
[2021-04-12] MEDS: risperiDONE 2 MG TAB PO SCH (21:38)
[2021-04-12] MEDS: SYMBICORT 160-4.5 MCG INHALER INHALATION SCH (23:56)
[2021-04-12] MEDS: ALBUTEROL HFA INHALER INHALATION SCH (23:56)
[2021-04-13] MEDS: ALBUTEROL HFA INHALER INHALATION SCH ×6 (03:36→23:24)
[2021-04-13] MEDS: LEVOTHYROXINE 50 MCG TAB PO SCH (06:05)
[2021-04-13] MEDS: SYMBICORT 160-4.5 MCG INHALER INHALATION SCH ×2 (08:07→20:57)
[2021-04-13] MEDS: guaiFENesin 600 MG TABLET.ER PO SCH ×2 (09:04→21:57)
[2021-04-13] MEDS: ASCORBIC ACID 500 MG TAB PO SCH (09:04)
[2021-04-13] MEDS: PANTOPRAZOLE 40 MG TABLET PO SCH (09:04)
[2021-04-13] MEDS: DOCUSATE 100 MG CAP PO SCH ×2 (09:04→21:57)
[2021-04-13] MEDS: GABAPENTIN 400 MG CAP PO SCH ×3 (09:04→21:57)
[2021-04-13] MEDS: ATORVASTATIN 10 MG TAB PO SCH (09:05)
[2021-04-13] MEDS: SERTRALINE 100 MG TAB PO SCH (09:05)
[2021-04-13] MEDS: ENOXAPARIN 40 MG/0.4 ML SYRINGE SQ SCH (09:05)
[2021-04-13] MEDS: busPIRone HCl 10 MG TAB PO SCH ×2 (09:05→21:57)
[2021-04-13] MEDS: RALOXIFENE 60 MG TAB PO SCH (09:06)
--- NOTE | 2021-04-13 11:01 | P.CNPUL ---
History of Present Illness Consult date: 04/13/21 Requesting physician: Cheri Warner Reason for consult: dyspnea, abnormal CXR/CT Chief complaint: Shortness of breath History of present illness: This is a very pleasant 70-year-old female patient with a known history of hepatitis C, fibromyalgia, depression, osteoarthritis, former smoker, advanced COPD. She was recently admitted for COVID-19 pneumonia testing positive on 03/07/2021 and was initiated on Remdesivir. Her hypoxia had progressed in the Remdesivir was stopped and she received Tocilizumab on 03/14/2021. She was subsequently discharged home 04/01/2021 on 5 L nasal cannula. She represented to the emergency room yesterday with complaints of increasing shortness of breath, cough and congestion. His x-ray reveals interstitial lung disease secondary to COVID-19 pneumonia. Underlying COPD. Bronchiectasis. White count 6.2. Hemoglobin 12.1. Platelets 80,000. Lymphocytes 0.8. D-dimer 0.84. Sodium 141. Potassium 4.1. Creatinine 0.77. She's been initiated on Symbi tierra, albuterol, Mucinex. Lovenox for DVT prophylaxis. She is seen in consultation on the regular medical floor. Currently sitting up in bed. Awake and alert in no acute distress. Continues to maintain O2 saturation in the 90s on 5 L/m per nasal cannula. Review of Systems REVIEW OF SYSTEMS: CONSTITUTIONAL: Denies any recent significant weight loss or weight gain. EYES: Denies change in vision. EARS, NOSE, MOUTH, THROAT: Denies headaches, denies sore throat. CARDIOVASCULAR: Denies chest pain, palpitations or syncopal episodes. RESPIRATORY: Positive for shortness of breath, cough, congestion no hemoptysis. GASTROINTESTINAL: Denies change in appetite, denies abdominal pain GENITOURINARY: Denies hematuria, denies infections. MUSKULOSKELETAL: Denies pain, denies swelling. INTEGUMENTARY: Denies rash, denies eczema. NEUROLOGICAL: Denies recent memory loss, no recent seizure activity. PSYCHIATRIC: Denies anxiety, denies depression. HEMATOLOGIC/LYMPHATIC: Denies anemia, denies enlarged lymph nodes. s Past Medical History Past Medical History: Cancer, COPD, Fibromyalgia, Osteoarthritis (OA), Pneumonia, Rheumatoid Arthritis (RA) Additional Past Medical History / Comment(s): Pt tested covid + 4/8/21 [facility] ER. 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 L hand and ulcer on L wrist History of Any Multi-Drug Resistant Organisms: None Reported Past Surgical History: Back Surgery, Hysterectomy, Joint Replacement, Orthopedic Surgery Additional Past Surgical History / Comment(s): L partial nephrectomy, R wrist surgery for fracture, 3 L spine surgeries, 2 cervical surgeries, L hemiarthroplasty d/t fracture, colonoscopy Past Anesthesia/Blood Transfusion Reactions: No Reported Reaction Past Psychological History: Depression Additional Psychological History / Comment(s): Pt resides alone. She uses a walker to ambulate. She does not drive, her braeden drives her places. Smoking Status: Former smoker Past Alcohol Use History: None Reported Additional Past Alcohol Use History / Comment(s): Pt started smoking in 1962 and quit in 2019. She denied any alcohol use. Past Drug Use History: None Reported Additional Drug Use History / Comment(s): Pt denied any drug use - Past Family History Father Family Medical History: Cancer Additional Family Medical History / Comment(s): LUNG CA Mother Family Medical History: Osteoarthritis (OA) Medications and Allergies Home Medications Medication Instructions Recorded Confirmed Type Raloxifene [Evista] 60 mg PO DAILY 02/07/15 04/12/21 History Sertraline HCl [Zoloft] 200 mg PO DAILY 02/07/15 04/12/21 History Gabapentin 800 mg PO TID 04/05/15 04/12/21 History Levothyroxine Sodium [Synthroid] 50 mcg PO DAILY 04/05/15 04/12/21 History risperiDONE [RisperDAL] 2 mg PO HS 04/05/15 04/12/21 History Pantoprazole Sodium [Protonix] 40 mg PO DAILY 08/28/16 04/12/21 History Docusate [Colace] 100 mg PO BID #60 capsule 10/01/16 04/12/21 Rx oxyCODONE-APAP 7.5-325MG [Percocet 1 tab PO Q6H PRN 07/03/19 04/12/21 History 7.5-325 mg] Ascorbic Acid [Vitamin C] 500 mg PO DAILY 01/14/20 04/12/21 History Atorvastatin [Lipitor] 10 mg PO DAILY 01/14/20 04/12/21 History Calcium Carbonate [Calcium] 600 mg PO DAILY 01/14/20 04/12/21 History busPIRone HCl [Buspar] 10 mg PO BID 01/14/20 04/12/21 History tiZANidine [Zanaflex] 4 mg PO TID PRN 01/14/20 04/12/21 History traZODone HCL 100 mg PO HS 01/14/20 04/12/21 History Budesonide-Formot 160-4.5 Mcg 2 puff INHALATION RT-BID 30 Days 01/18/20 04/12/21 Rx [Symbicort 160-4.5 Mcg Inhaler] #1 inhaler Naproxen 500 mg PO BID PRN 03/07/21 04/12/21 History Nicotine 21Mg/24Hr Patch [Habitrol] 1 patch TRANSDERM DAILY PRN 03/07/21 04/12/21 History Allergies Allergy/AdvReac Type Severity Reaction Status Date / Time Penicillins Allergy Dyspnea Verified 04/12/21 13:47 aspirin AdvReac Nausea & Verified 04/12/21 13:47 Vomiting morphine AdvReac Hallucinati Verified 04/12/21 13:47 ons Physical Exam Vitals: Vital Signs Temp Pulse Pulse Resp BP BP Pulse Ox 04/13/21 10:00 98.3 F 95 18 144/85 97 04/13/21 06:00 98.2 F 80 18 133/75 93 L 04/13/21 01:57 98.1 F 89 18 171/91 94 L 04/12/21 22:10 98.2 F 90 16 167/90 94 L 04/12/21 20:00 90 16 04/12/21 17:11 97.9 F 86 18 162/83 96 04/12/21 14:17 98.0 F 93 20 109/62 99 04/12/21 14:09 93 20 109/62 99 04/12/21 14:00 97.9 F 93 18 157/72 95 04/12/21 13:09 86 20 135/83 99 04/12/21 13:03 86 04/12/21 12:51 78 04/12/21 12:09 88 20 119/83 99 04/12/21 11:53 98.0 F 82 16 119/83 99 Intake and Output 04/12/21 04/13/21 04/13/21 22:59 06:59 14:59 Other: Voiding Method Bedside Commode # Voids 1 3 GENERAL EXAM: Alert, 70-year-old female patient, on 5 L nasal cannula with O2 saturation 97%, comfortable in no apparent distress. HEAD: Normocephalic. EYES: Normal reaction of pupils, equal size. NOSE: Clear with pink turbinates. THROAT: No erythema or exudates. NECK: No masses, no JVD. CHEST: No chest wall deformity. LUNGS: Equal air entry with few scattered rhonchi, crackles in the bases. CVS: S1 and S2 normal with no audible murmur, regular rhythm. ABDOMEN: No hepatosplenomegaly, normal bowel sounds, no guarding or rigidity. SPINE: No scoliosis or deformity SKIN: No rashes CENTRAL NERVOUS SYSTEM: No focal deficits, tone is normal in all 4 extremities. EXTREMITIES: There is no peripheral edema. No clubbing, no cyanosis. Peripheral pulses are intact. Results - Laboratory Findings CBC and BMP: 04/12/21 12:11 04/12/21 12:11 PT/INR, D-dimer PT 10.0 sec (9.0-12.0) 04/12/21 12:11 INR 0.9 (<1.2) 04/12/21 12:11 D-Dimer 0.84 mg/L FEU (<0.60) H 04/12/21 12:11 Abnormal lab findings: Abnormal Labs 04/12/21 04/12/21 04/12/21 12:11 12:11 12:11 Plt Count 80 L Lymphocytes # 0.8 L APTT 21.6 L D-Dimer 0.84 H Chloride 110 H Carbon Dioxide 21 L Plasma Lactic Acid Brennan Total Protein 6.2 L 04/12/21 12:11 Plt Count Lymphocytes # APTT D-Dimer Chloride Carbon Dioxide Plasma Lactic Acid Brennan 2.2 H* Total Protein - Diagnostic Findings Chest x-ray: image reviewed Assessment and Plan Assessment: 1 Acute on chronic hypoxemic respiratory failure secondary to ongoing COVID-19 pneumonia, stable compared to previous admission. Tested positive on 03/07/2021. Received Tocilizumab 03/14/2021 2 Recent hospitalization for COVID-19 pneumonia, discharged home on 04/01/2021 on oxygen at 5 L/m per nasal cannula. 3 Advanced chronic obstructive pulmonary disease 4 Hypothyroidism 5 History of hepatitis C 6 Osteoarthritis 7 Former smoker 8 Fibromyalgia 9 History of depression Plan: The patient was seen and evaluated by Dr. Klein Chest x-ray and labs reviewed Continue current treatment plan Probable discharge in a.m. She had been home with home care and home oxygen Follow up with Dr. White in 2 weeks We will continue to follow and make further recommendations based on her clinical status I, the cosigning physician, performed a history & physical examination of the patient. Lungs sounds with few scattered rhonchi, crackles in the bases. Maintaining good O2 saturations in the 90s on 5 L/m per nasal cannula. I discussed the assessment and plan of care with my nurse practitioner, Mikala Kern. I attest to the above consultation as dictated by her. Time with Patient: Greater than 30
--- NOTE | 2021-04-13 14:26 | P.PN ---
Subjective Progress Note Date: 04/13/21 Patient is feeling about the same today. She said that her shortness of breath is not improving. Objective - Vital Signs Vital signs: Vital Signs Temp 98.3 F 04/13/21 10:00 Pulse 95 04/13/21 10:00 Resp 18 04/13/21 10:00 BP 144/85 04/13/21 10:00 Pulse Ox 97 04/13/21 10:00 Intake & Output 04/12/21 04/13/21 04/13/21 18:59 06:59 18:59 Weight 77.111 kg Other: Voiding Method Bedside Commode # Voids 1 3 - Exam General: The patient is awake and alert, in no distress Eye: there is normal conjunctiva bilaterally. Neck: The neck is supple, there is no JVD. Cardiovascular: Normal S1-S2, no S3-S4, no murmurs. Respiratory: Lungs clear to auscultation bilaterally Gastrointestinal: Abdomen is soft, nontender Musculoskeletal: There is no pedal edema. Neurological:. Speech is normal. Skin: Skin is warm and dry - Labs CBC & Chem 7: 04/12/21 12:11 04/12/21 12:11 Assessment and Plan Assessment: This is a 70-year-old female with past medical history noted below that presented to the emergency room with worsening dyspnea. Patient was evaluated in the ER and admitted to the hospital for further management of her medical problems noted below. 1. Progressive dyspnea, probably secondary to underlying end-stage COPD/emphysema/bronchiectasis. I started DuoNeb's every 4 hours and continue Symbicort twice daily. Mucinex 1200 mg twice daily. I consulted pulmonology for further evaluation. 2. Elevated d-dimer, trending down compared to last admission. During last admission patient has CT angiogram of the chest that was negative for PE. 3. Acute on chronic hypoxic respiratory failure on home O2 4. End stage COPD with long history of tobacco abuse 5. Dizziness, orthostatic blood pressure checked and negative. Cortisol level within normal range. 6. Chronic medical problems: Hypertension, hyperlipidemia, hypothyroidism 7. DVT prophylaxis with subcu Lovenox 8. CODE STATUS: The patient is full code Today, I had a prolonged discussion with the patient about her underlying chronic lung disease. I explained to her that she should have realistic expectation with her chronic dyspnea. She asked me to call her daughter to discuss with her further. I tried to call her daughter 3 times with no response. Patient specified her daughter Naya as the spoken person. I would attempt to call her again tomorrow.
[2021-04-13] MEDS: oxyCODONE-APAP 7.5-325MG 1 EACH TAB PO PRN ×2 (15:37→21:57)
[2021-04-13] MEDS: IPRATROPIUM-ALBUTEROL 3 ML NEB INHALATION SCH ×2 (16:49→16:50)
[2021-04-13] MEDS: traZODone HCL 100 MG TAB PO SCH (21:57)
[2021-04-13] MEDS: risperiDONE 2 MG TAB PO SCH (21:58)
[2021-04-14] MEDS: ALBUTEROL HFA INHALER INHALATION SCH ×6 (03:46→23:54)
[2021-04-14] MEDS: LEVOTHYROXINE 50 MCG TAB PO SCH (06:35)
[2021-04-14] MEDS: ENOXAPARIN 40 MG/0.4 ML SYRINGE SQ SCH (08:38)
[2021-04-14] MEDS: guaiFENesin 600 MG TABLET.ER PO SCH ×2 (08:38→20:01)
[2021-04-14] MEDS: ATORVASTATIN 10 MG TAB PO SCH (08:38)
[2021-04-14] MEDS: SYMBICORT 160-4.5 MCG INHALER INHALATION SCH ×2 (08:38→21:24)
[2021-04-14] MEDS: ASCORBIC ACID 500 MG TAB PO SCH (08:38)
[2021-04-14] MEDS: busPIRone HCl 10 MG TAB PO SCH ×2 (08:38→20:01)
[2021-04-14] MEDS: DOCUSATE 100 MG CAP PO SCH ×2 (08:38→20:02)
[2021-04-14] MEDS: RALOXIFENE 60 MG TAB PO SCH (08:38)
[2021-04-14] MEDS: oxyCODONE-APAP 7.5-325MG 1 EACH TAB PO PRN ×3 (08:38→21:33)
[2021-04-14] MEDS: PANTOPRAZOLE 40 MG TABLET PO SCH (08:38)
[2021-04-14] MEDS: SERTRALINE 100 MG TAB PO SCH (08:39)
[2021-04-14] MEDS: GABAPENTIN 400 MG CAP PO SCH ×3 (08:39→20:01)
--- NOTE | 2021-04-14 14:16 | P.PN ---
Subjective Progress Note Date: 04/14/21 This is a very pleasant 70-year-old female patient with a known history of hepatitis C, fibromyalgia, depression, osteoarthritis, former smoker, advanced COPD. She was recently admitted for COVID-19 pneumonia testing positive on 03/07/2021 and was initiated on Remdesivir. Her hypoxia had progressed in the Remdesivir was stopped and she received Tocilizumab on 03/14/2021. She was subsequently discharged home 04/01/2021 on 5 L nasal cannula. She represented to the emergency room yesterday with complaints of increasing shortness of breath, cough and congestion. His x-ray reveals interstitial lung disease secondary to COVID-19 pneumonia. Underlying COPD. Bronchiectasis. White count 6.2. Hemoglobin 12.1. Platelets 80,000. Lymphocytes 0.8. D-dimer 0.84. Sodium 141. Potassium 4.1. Creatinine 0.77. She's been initiated on Symbicort, albuterol, Mucinex. Lovenox for DVT prophylaxis. She is seen in consultation on the regular medical floor. Currently sitting up in bed. Awake and alert in no acute distress. Continues to maintain O2 saturation in the 90s on 5 L/m per nasal cannula. The patient is seen today 04/14/2021 in follow-up on the regular medical floor. She is currently resting quite comfortably in bed. Laying flat. Still requiring 5 L nasal cannula to maintain O2 saturations in the low 90s. No worsening shortness of breath, cough or congestion. Afebrile. She is continued on Symbicort, albuterol, Mucinex. Objective - Vital Signs Vital signs: Vital Signs Temp 97.6 F 04/14/21 10:00 Pulse 121 H 04/14/21 10:58 Resp 18 04/14/21 10:00 BP 179/81 04/14/21 10:58 Pulse Ox 90 L 04/14/21 10:58 Intake & Output 04/13/21 04/14/21 04/14/21 18:59 06:59 18:59 Other: Voiding Method Bedside Commode Bedside Commode Bedside Commode # Voids 1 # Bowel Movements 1 - Exam GENERAL EXAM: Alert, 70-year-old female patient, on 5 L nasal cannula with O2 saturation 90%, comfortable in no apparent distress. HEAD: Normocephalic. EYES: Normal reaction of pupils, equal size. NOSE: Clear with pink turbinates. THROAT: No erythema or exudates. NECK: No masses, no JVD. CHEST: No chest wall deformity. LUNGS: Equal air entry with few scattered rhonchi, crackles in the bases. CVS: S1 and S2 normal with no audible murmur, regular rhythm. ABDOMEN: No hepatosplenomegaly, normal bowel sounds, no guarding or rigidity. SPINE: No scoliosis or deformity SKIN: No rashes CENTRAL NERVOUS SYSTEM: No focal deficits, tone is normal in all 4 extremities. EXTREMITIES: There is no peripheral edema. No clubbing, no cyanosis. Peripheral pulses are intact. - Labs CBC & Chem 7: 04/12/21 12:11 04/12/21 12:11 Assessment and Plan Assessment: 1 Acute on chronic hypoxemic respiratory failure secondary to ongoing COVID-19 pneumonia, stable compared to previous admission. Tested positive on 03/07/2021. Received Tocilizumab 03/14/2021 2 Recent hospitalization for COVID-19 pneumonia, discharged home on 04/01/2021 on oxygen at 5 L/m per nasal cannula. 3 Advanced chronic obstructive pulmonary disease 4 Hypothyroidism 5 History of hepatitis C 6 Osteoarthritis 7 Former smoker 8 Fibromyalgia 9 History of depression Plan: The patient was seen and evaluated by Dr. Klein Continue the current treatment plan Patient is considering possible subacute rehabilitation versus home with home care Discharge once cleared medically I, the cosigning physician, performed a history & physical examination of the patient. Lungs sounds with few scattered rhonchi, crackles in the bases. Maintaining good O2 saturations in the 90s on 5 L/m per nasal cannula. I discussed the assessment and plan of care with my nurse practitioner, Mikala Kern. I attest to the above consultation as dictated by her.
--- NOTE | 2021-04-14 15:20 | P.PN ---
Subjective Progress Note Date: 04/14/21 Patient was seen and examined by me today. She is feeling about the same with no significant improvement in her shortness of breath. She is currently on 5 L of oxygen via nasal cannula. Objective - Vital Signs Vital signs: Vital Signs Temp 97.7 F 04/14/21 14:00 Pulse 99 04/14/21 14:00 Resp 16 04/14/21 14:00 BP 139/81 04/14/21 14:00 Pulse Ox 95 04/14/21 14:00 Intake & Output 04/13/21 04/14/21 04/14/21 18:59 06:59 18:59 Other: Voiding Method Bedside Commode Bedside Commode Bedside Commode # Voids 1 # Bowel Movements 1 - Exam General: The patient is awake and alert, in no distress Eye: there is normal conjunctiva bilaterally. Neck: The neck is supple, there is no JVD. Cardiovascular: Normal S1-S2, no S3-S4, no murmurs. Respiratory: Lungs clear to auscultation bilaterally Gastrointestinal: Abdomen is soft, nontender Musculoskeletal: There is no pedal edema. Neurological:. Speech is normal. Skin: Skin is warm and dry - Labs CBC & Chem 7: 04/12/21 12:11 04/12/21 12:11 Assessment and Plan Assessment: This is a 70-year-old female with past medical history noted below that presented to the emergency room with worsening dyspnea. Patient was evaluated in the ER and admitted to the hospital for further management of her medical problems noted below. 1. Progressive dyspnea, probably secondary to underlying end-stage COPD/emphysema/bronchiectasis. I started DuoNeb's every 4 hours and continue Symbicort twice daily. Mucinex 1200 mg twice daily. I consulted pulmonology for further evaluation. 2. Elevated d-dimer, trending down compared to last admission. During last admission patient has CT angiogram of the chest that was negative for PE. 3. Acute on chronic hypoxic respiratory failure on home O2 4. End stage COPD with long history of tobacco abuse 5. Dizziness, orthostatic blood pressure checked and negative. Cortisol level within normal range. 6. Chronic medical problems: Hypertension, hyperlipidemia, hypothyroidism 7. DVT prophylaxis with subcu Lovenox 8. CODE STATUS: The patient is full code Today, I had a prolonged discussion with the patient and her daughter Naya over the phone about her underlying chronic lung disease. I explained to her that she should have realistic expectation with her chronic dyspnea. She may benefit from subacute rehab. PT/OT/social worker clinical consulted for possible placement
[2021-04-14] MEDS: traZODone HCL 100 MG TAB PO SCH (20:01)
[2021-04-14] MEDS: risperiDONE 2 MG TAB PO SCH (20:01)
[2021-04-15] MEDS: ALBUTEROL HFA INHALER INHALATION SCH ×3 (03:41→11:30)
[2021-04-15] MEDS: LEVOTHYROXINE 50 MCG TAB PO SCH (05:57)
[2021-04-15] MEDS: DOCUSATE 100 MG CAP PO SCH (07:40)
[2021-04-15] MEDS: busPIRone HCl 10 MG TAB PO SCH (07:40)
[2021-04-15] MEDS: SERTRALINE 100 MG TAB PO SCH (07:40)
[2021-04-15] MEDS: ENOXAPARIN 40 MG/0.4 ML SYRINGE SQ SCH (07:40)
[2021-04-15] MEDS: GABAPENTIN 400 MG CAP PO SCH (07:40)
[2021-04-15] MEDS: PANTOPRAZOLE 40 MG TABLET PO SCH (07:41)
[2021-04-15] MEDS: ATORVASTATIN 10 MG TAB PO SCH (07:41)
[2021-04-15] MEDS: RALOXIFENE 60 MG TAB PO SCH (07:41)
[2021-04-15] MEDS: ASCORBIC ACID 500 MG TAB PO SCH (07:41)
[2021-04-15] MEDS: guaiFENesin 600 MG TABLET.ER PO SCH (07:41)
[2021-04-15] MEDS: SYMBICORT 160-4.5 MCG INHALER INHALATION SCH (08:36)
[2021-04-15] MEDS ORDERED: MORPHINE SULFATE ER 15 MG TABLET PO SCH (09:30)
--- NOTE | 2021-04-15 09:32 | P.PN ---
Subjective Progress Note Date: 04/15/21 Patient is feeling about the same compared to yesterday. She still complaining of dyspnea mostly during the day and with exertion. She is on 5 L of oxygen. Objective - Vital Signs Vital signs: Vital Signs Temp 98.4 F 04/15/21 05:44 Pulse 94 04/15/21 05:44 Resp 17 04/15/21 05:44 BP 146/80 04/15/21 05:44 Pulse Ox 97 04/15/21 05:44 Intake & Output 04/14/21 04/15/21 04/15/21 18:59 06:59 18:59 Other: Voiding Method Bedside Commode Bedside Commode # Voids 3 1 # Bowel Movements 1 - Exam General: The patient is awake and alert, in no distress Eye: there is normal conjunctiva bilaterally. Neck: The neck is supple, there is no JVD. Cardiovascular: Normal S1-S2, no S3-S4, no murmurs. Respiratory: Lungs clear to auscultation bilaterally Gastrointestinal: Abdomen is soft, nontender Musculoskeletal: There is no pedal edema. Neurological:. Speech is normal. Skin: Skin is warm and dry - Labs CBC & Chem 7: 04/12/21 12:11 04/12/21 12:11 Assessment and Plan Assessment: This is a 70-year-old female with past medical history noted below that presented to the emergency room with worsening dyspnea. Patient was evaluated in the ER and admitted to the hospital for further management of her medical problems noted below. 1. Progressive dyspnea, probably secondary to underlying end-stage COPD/emphysema/bronchiectasis. I started DuoNeb's every 4 hours and continue Symbicort twice daily. Mucinex 1200 mg twice daily. I consulted pulmonology for further evaluation. 2. Elevated d-dimer, trending down compared to last admission. During last admission patient has CT angiogram of the chest that was negative for PE. 3. Acute on chronic hypoxic respiratory failure on home O2 4. End stage COPD with long history of tobacco abuse 5. Dizziness, orthostatic blood pressure checked and negative. Cortisol level within normal range. 6. Chronic medical problems: Hypertension, hyperlipidemia, hypothyroidism 7. DVT prophylaxis with subcu Lovenox 8. CODE STATUS: The patient is full code Today, I had a prolonged discussion with the patient regarding her symptoms. We discussed the option of using morphine to alleviate her dyspnea. Patient had a morphine ALLERGY noted in the computer but patient told me that she does not have any ALLERGIES to morphine. We discussed using a low-dose extended release morphine 15 mg daily to see if that would help with her dyspnea. I would decrease her gabapentin dose to 400 mg 3 times a day. Continue current regimen otherwise. Awaiting PT/OT evaluation.
--- NOTE | 2021-04-15 09:57 | XR ---
EXAMINATION TYPE: XR chest 1V DATE OF EXAM: 04/15/2021 CLINICAL HISTORY: Difficulty breathing progress study. Recent covid. TECHNIQUE: Single AP portable upright view of the chest is obtained. COMPARISON: Chest x-ray from 3 days earlier and older studies. CTA chest March 07, 2021 FINDINGS: Background chronic emphysematous and parenchymal changes with persistent multifocal increa sed opacities bilaterally greatest in the periphery. Cardiac silhouette size stable and within normal limits. Postsurgical change to the thoracolumbar spine partially imaged. IMPRESSION: Chronic changes with bilateral multifocal opacities consistent with known covid-19 infect ion, no significant change from most recent x-ray.
--- NOTE | 2021-04-15 13:52 | P.DS ---
Providers Date of admission: 04/12/21 13:37 Expected date of discharge: 04/15/21 Attending physician: Cheri Warner Consults: 04/12/21 15:14 Consult Physician Routine Consulting Provider: Sosa Klein Consult Reason/Comments: end stage COPD Do you want consulting provider notified?: Yes Primary care physician: [facility] Course: This is a 70-year-old female with past medical history noted below that presented to the emergency room with worsening dyspnea. Patient was evaluated in the ER and admitted to the hospital for further management of her medical problems noted below. 1. Progressive dyspnea, probably secondary to underlying end-stage COPD/emphysema/bronchiectasis. I started DuoNeb's every 4 hours and continue Symbicort twice daily. Mucinex 1200 mg twice daily. I consulted pulmonology for further evaluation. 2. Elevated d-dimer, trending down compared to last admission. During last admission patient has CT angiogram of the chest that was negative for PE. 3. Acute on chronic hypoxic respiratory failure on home O2 4. End stage COPD with long history of tobacco abuse 5. Dizziness, orthostatic blood pressure checked and negative. Cortisol level within normal range. 6. Chronic medical problems: Hypertension, hyperlipidemia, hypothyroidism 7. CODE STATUS: The patient is full code We explained to the patient and her daughter the nature of the end-stage lung disease and that there is so much that she can expect in terms of recovery. She refused palliative care in the past. She also refused using long-acting morphine to see if that would help with her dyspnea. Patient will be discharged to [facility] for rehab. Plan - Discharge Summary Discharge Rx Participant: Yes New Discharge Prescriptions: New guaiFENesin [Mucinex] 1,200 mg PO Q12HR tablet.er Continue Sertraline HCl [Zoloft] 200 mg PO DAILY Raloxifene [Evista] 60 mg PO DAILY risperiDONE [RisperDAL] 2 mg PO HS Levothyroxine Sodium [Synthroid] 50 mcg PO DAILY Pantoprazole Sodium [Protonix] 40 mg PO DAILY Docusate [Colace] 100 mg PO BID #60 capsule busPIRone HCl [Buspar] 10 mg PO BID Ascorbic Acid [Vitamin C] 500 mg PO DAILY traZODone HCL 100 mg PO HS Atorvastatin [Lipitor] 10 mg PO DAILY Calcium Carbonate [Calcium] 600 mg PO DAILY Budesonide-Formot 160-4.5 Mcg [Symbicort 160-4.5 Mcg Inhaler] 2 puff INHALATION RT-BID 30 Days #1 inhaler Naproxen 500 mg PO BID PRN PRN Reason: Pain Nicotine 21Mg/24Hr Patch [Habitrol] 1 patch TRANSDERM DAILY PRN PRN Reason: Nicotine Cravings Gabapentin 800 mg PO TID #9 tab oxyCODONE-APAP 7.5-325MG [Percocet 7.5-325 mg] 1 tab PO Q6H PRN #9 tab PRN Reason: Pain Discontinued tiZANidine [Zanaflex] 4 mg PO TID PRN PRN Reason: Muscle Spasm Discharge Medication List Raloxifene [Evista] 60 mg PO DAILY 02/07/15 [History] Sertraline HCl [Zoloft] 200 mg PO DAILY 02/07/15 [History] Levothyroxine Sodium [Synthroid] 50 mcg PO DAILY 04/05/15 [History] risperiDONE [RisperDAL] 2 mg PO HS 04/05/15 [History] Pantoprazole Sodium [Protonix] 40 mg PO DAILY 08/28/16 [History] Docusate [Colace] 100 mg PO BID #60 capsule 10/01/16 [Rx] Ascorbic Acid [Vitamin C] 500 mg PO DAILY 01/14/20 [History] Atorvastatin [Lipitor] 10 mg PO DAILY 01/14/20 [History] Calcium Carbonate [Calcium] 600 mg PO DAILY 01/14/20 [History] busPIRone HCl [Buspar] 10 mg PO BID 01/14/20 [History] traZODone HCL 100 mg PO HS 01/14/20 [History] Budesonide-Formot 160-4.5 Mcg [Symbicort 160-4.5 Mcg Inhaler] 2 puff INHALATION RT-BID 30 Days #1 inhaler 01/18/20 [Rx] Naproxen 500 mg PO BID PRN 03/07/21 [History] Nicotine 21Mg/24Hr Patch [Habitrol] 1 patch TRANSDERM DAILY PRN 03/07/21 [History] Gabapentin 800 mg PO TID #9 tab 04/15/21 [Rx] guaiFENesin [Mucinex] 1,200 mg PO Q12HR tablet.er 04/15/21 [Rx] oxyCODONE-APAP 7.5-325MG [Percocet 7.5-325 mg] 1 tab PO Q6H PRN #9 tab 04/15/21 [Rx] Follow up Appointment(s)/Referral(s): Michael Valdovinos DO [Primary Care Provider] - 1-2 days Activity/Diet/Wound Care/Special Instructions: [facility] for rehab on d/c. Discharge Disposition: TRANSFER TO SNF/ECF
--- NOTE | 2021-04-15 14:54 | P.PN ---
Subjective Progress Note Date: 04/15/21 Principal diagnosis: Acute on chronic hypoxic rest or a failure secondary to recent history of COVID-19 pneumonia This is a very pleasant 70-year-old female patient with a known history of hepatitis C, fibromyalgia, depression, osteoarthritis, former smoker, advanced COPD. She was recently admitted for COVID-19 pneumonia testing positive on 03/07/2021 and was initiated on Remdesivir. Her hypoxia had progressed in the Remdesivir was stopped and she received Tocilizumab on 03/14/2021. She was subsequently discharged home 04/01/2021 on 5 L nasal cannula. She represented t o the emergency room yesterday with complaints of increasing shortness of breath, cough and congestion. His x-ray reveals interstitial lung disease secondary to COVID-19 pneumonia. Underlying COPD. Bronchiectasis. White count 6.2. Hemoglobin 12.1. Platelets 80,000. Lymphocytes 0.8. D-dimer 0.84. Sodium 141. Potassium 4.1. Creatinine 0.77. She's been initiated on Symbicort, albuterol, Mucinex. Lovenox for DVT prophylaxis. She is seen in consultation on the regular medical floor. Currently sitting up in bed. Awake and alert in no acute distress. Continues to maintain O2 saturation in the 90s on 5 L/m per nasal cannula. The patient is seen today 04/14/2021 in follow-up on the regular medical floor. She is currently resting quite comfortably in bed. Laying flat. Still requ iring 5 L nasal cannula to maintain O2 saturations in the low 90s. No worsening shortness of breath, cough or congestion. Afebrile. She is continued on Symbicort, albuterol, Mucinex. On 04/15/2021 patient seen in follow-up. Appears to be very comfortable, she is currently on 5 L of oxygen her pulse ox is 95%, she's been afebrile, hemodynamically she has been stable. Today's chest x-ray shows background chronic emphysematous improvement, changes with persistent multifocal opacities related to recent history of COVID-19 pneumonia. Hemodynamically she's been stable, she has been afebrile, no increasing dyspnea no cough, no hemoptysis, no chest discomfort. She is currently on Symbicort, she is on Lovenox 40 mg once daily, she continues on multivitamins. She reports no acute complaints Objective - Vital Signs Vital signs: Vital Signs Temp 97.8 F 04/15/21 10:00 Pulse 110 H 04/15/21 10:00 Resp 17 04/15/21 10:00 BP 139/80 04/15/21 10:00 Pulse Ox 95 04/15/21 10:00 Intake & Output 04/14/21 04/15/21 04/15/21 18:59 06:59 18:59 Other: Voiding Method Bedside Commode Bedside Commode # Voids 3 1 # Bowel Movements 1 - Exam GENERAL EXAM: Alert, pleasant, 70-year-old white female patient currently on 5 L of oxygen and patient is satting at around 96% comfortable in no apparent distress. Not requiring nonrebreather mask HEAD: Normocephalic/atraumatic. EYES: Normal reaction of pupils, equal size. Conjunctiva pink, sclera white. NOSE: Clear with pink turbinates. THROAT: No erythema or exudates. NECK: No masses, no JVD, no thyroid enlargement, no adenopathy. CHEST: No chest wall deformity. Symmetrical expansion. LUNGS: Equal air entry with his crackles and rhonchi CVS: Regular rate and rhythm, normal S1 and S2, no gallops, no murmurs, no rubs ABDOMEN: Soft, nontender. No hepatosplenomegaly, normal bowel sounds, no guarding or rigidity. EXTREMITIES: No clubbing, no edema, no cyanosis, 2+ pulses and upper and lower extremities. MUSCULOSKELETAL: Muscle strength and tone normal. Patient has deformity of the right arm, with history of multiple previous surgeries, extensive bone and nerve damage SPINE: No scoliosis or deformity SKIN: No rashes CENTRAL NERVOUS SYSTEM: Alert and oriented -3. No focal deficits, tone is normal in all 4 extremities. PSYCHIATRIC: Alert and oriented -3. Appropriate affect. Intact judgment and insight. - Labs CBC & Chem 7: 04/12/21 12:11 04/12/21 12:11 Assessment and Plan Plan: 1 Acute on chronic hypoxemic respiratory failure secondary to ongoing COVID-19 pneumonia, stable compared to previous admission. Tested positive on 03/07/2021. Received Tocilizumab 03/14/2021 2 Recent hospitalization for COVID-19 pneumonia, discharged home on 04/01/2021 on oxygen at 5 L/m per nasal cannula. 3 Advanced chronic obstructive pulmonary disease 4 Hypothyroidism 5 History of hepatitis C 6 Osteoarthritis 7 Former smoker 8 Fibromyalgia 9 History of depression Plan: Continue current medical treatment Continue albuterol and Symbicort Chest x-ray today shows persistent changes of recent COVID-19 pneumonia Clinically has been stable Weaning FiO2 Increase activity as tolerated Stable for discharge, and the patient may need placement to ECF I performed a history & physical examination of the patient and discussed their management with my nurse practitioner, Lucia Kinsey. I reviewed the nurse practitioner's note and agree with the documented findings and plan of care. Lung sounds are positive for diminished breath sounds. The findings and the impression was discussed with the patient. I attest to the documentation by the nurse practitioner. Time with Patient: Less than 30
[2021-04-15 14:55] VITALS: BP 128/84; PULSE 117; RESP 18; TEMP 98.7
[2021-04-15] MEDS ORDERED: GABAPENTIN 400 MG CAP PO SCH (16:00)
== END 2021-04-15 15:33 | DRG 190 ==
LOC: EC 11:45 → 4SSUR 13:35 → OBSVTOIN 13:37
PROVIDERS: ADMIT Internal Medicine; ATTEND Internal Medicine
DX: J43.9 Emphysema, unspecified (principal); J96.21 Acute and chronic respiratory failure with hypoxia; J84.9 Interstitial pulmonary disease, unspecified; E03.9 Hypothyroidism, unspecified; E78.5 Hyperlipidemia, unspecified; F32.9 Major depressive disorder, single episode, unspecified; I11.0 Hypertensive heart disease with heart failure; I50.9 Heart failure, unspecified; Z86.16 Personal history of COVID-19; Z87.01 Personal history of pneumonia (recurrent); M06.9 Rheumatoid arthritis, unspecified; M19.90 Unspecified osteoarthritis, unspecified site; M79.7 Fibromyalgia; Z79.01 Long term (current) use of anticoagulants; Z79.51 Long term (current) use of inhaled steroids; Z79.890 Hormone replacement therapy; Z79.899 Other long term (current) drug therapy; R42 Dizziness and giddiness; R79.1 Abnormal coagulation profile; Z60.2 Problems related to living alone; Z80.1 Family history of malignant neoplasm of trachea, bronchus and lung; Z85.528 Personal history of other malignant neoplasm of kidney; Z87.891 Personal history of nicotine dependence; Z88.5 Allergy status to narcotic agent; Z88.6 Allergy status to analgesic agent; Z88.0 Allergy status to penicillin; Z90.710 Acquired absence of both cervix and uterus; Z90.5 Acquired absence of kidney; Z82.61 Family history of arthritis; Z87.81 Personal history of (healed) traumatic fracture; Z86.19 Personal history of other infectious and parasitic diseases
CPT/HCPCS: 36415; 71045; 71046; 80053; 82533; 83605; 83735; 83880; 84145; 84484; 85025; 85379; 85610; 85730; 93005; 94640; 99285

== ENCOUNTER 2021-12-16 13:56 | Inpatient (IN) | payer MEDICARE, OTHER ==
--- NOTE | 2021-12-16 14:24 | ED ---
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 Patient also may have had possible syncopal episode at home. She denies taking any increased doses of her pain medications. She is on oxycodone. She states she feels sleepy today and was falling asleep in a chair, however patient's sister is concerned she was passing out after which is why they called EMS. Patient currently states she feels tired but denies any other acute complaints at this time. Denies any urinary complaints, diarrhea, nausea, vomiting. Denies any chest pain, shortness breath, abdominal pain. His no fevers or chills. States she usually has some discharge from her wound in her right upper extremity. His no other acute complaints at this time. Presents to the emergency department with concern for syncope. - Related Data Home Medications Medication Instructions Recorded Confirmed Raloxifene [Evista] 60 mg PO DAILY 02/07/15 12/16/21 Sertraline HCl [Zoloft] 200 mg PO DAILY 02/07/15 12/16/21 risperiDONE [RisperDAL] 2 mg PO HS 04/05/15 12/16/21 Pantoprazole Sodium [Protonix] 40 mg PO DAILY 08/28/16 12/16/21 Ascorbic Acid [Vitamin C] 500 mg PO DAILY 01/14/20 12/16/21 Atorvastatin [Lipitor] 10 mg PO DAILY 01/14/20 12/16/21 Calcium Carbonate [Calcium] 600 mg PO DAILY 01/14/20 12/16/21 busPIRone HCl [Buspar] 10 mg PO BID 01/14/20 12/16/21 traZODone HCL 100 mg PO HS 01/14/20 12/16/21 Naproxen 500 mg PO BID PRN 03/07/21 12/16/21 Cholecalciferol [Vitamin D3 (25 25 mcg PO DAILY 12/16/21 12/16/21 Mcg = 1000 Iu)] Dicyclomine HCl 10 - 20 mg PO QID PRN 12/16/21 12/16/21 Ergocalciferol (Vitamin D2) 1,250 mcg PO WE 12/16/21 12/16/21 [Drisdol (50,000 Iu)] Levothyroxine Sodium [Synthroid] 100 mcg PO DAILY 12/16/21 12/16/21 [place]-3 Fatty Acids [[place]-3] 1,000 mg PO DAILY 12/16/21 12/16/21 oxyCODONE-APAP 7.5-325MG [Percocet 1 tab PO Q6H PRN 12/16/21 12/16/21 7.5-325 mg] Allergies Allergy/AdvReac Type Severity Reaction Status Date / Time Penicillins Allergy Dyspnea Verified 12/16/21 17:26 aspirin AdvReac Nausea & Verified 12/16/21 17:26 Vomiting Review of Systems ROS Statement: Those systems with pertinent positive or pertinent negative responses have been documented in the HPI. Review of Systems: CONST: Denies fever EYES: Denies blurry vision ENT: Denies nasal congestion C/V: Denies Chest pain RESP: Denies shortness of breath GI: Denies abdominal pain : Denies dysuria SKIN: Denies rash. MSK: Denies joint pain. NEURO: Denies headache ROS Other: All systems not noted in ROS Statement are negative. Past Medical History Past Medical History: Cancer, COPD, Fibromyalgia, Osteoarthritis (OA), Pneumonia, Rheumatoid Arthritis (RA) Additional Past Medical History / Comment(s): Pt tested covid + 03/07/21 [facility] ER. 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 L hand and ulcer on L wrist History of Any Multi-Drug Resistant Organisms: None Reported Past Surgical History: Back Surgery, Hysterectomy, Joint Replacement, Orthopedic Surgery Additional Past Surgical History / Comment(s): L partial nephrectomy, R wrist surgery for fracture, 3 L spine surgeries, 2 cervical surgeries, L hemiarthroplasty d/t fracture, colonoscopy Past Anesthesia/Blood Transfusion Reactions: No Reported Reaction Past Psychological History: Depression Smoking Status: Former smoker Past Alcohol Use History: None Reported Past Drug Use History: None Reported - Past Family History Father Family Medical History: Cancer Additional Family Medical History / Comment(s): LUNG CA Mother Family Medical History: Osteoarthritis (OA) General Exam - General Exam Comments Initial Comments: General: Appears in no acute distress. She is awake and easily arousable. HEAD: Normal with no signs of head trauma. EYES: PERRLA, EOMI, conjunctiva normal, no discharge. Pupils are 1 mm and minimally reactive bilaterally. ENT: Hearing grossly intact, normal oropharynx. RESPIRATORY: Clear breath sounds bilaterally. No wheezes, rales, or rhonchi. Not hypoxic on home 5 L nasal cannula C/V: Regular rate and rhythm. S1 and S2 auscultated, no edema, peripheral pulses 2+ and intact throughout ABD: Abd is soft, nontender, nondistended EXT: Chronic deformity to the right upper extremity forearm. No other obvious deformity. SKIN: Has a approximate 2 cm wound to the dorsal aspect of the right upper extremity. He does have some mildly purulent discharge or surrounding erythema. No obvious abscess or fluctuance appreciated. NEURO: Alert and oriented 4. No focal deficits NIH is 0. GCS is passing. I did not ambulate the patient this time. Limitations: no limitations Course Vital Signs 12/16/21 12/16/21 14:00 18:05 Temperature 98.2 F Pulse Rate 62 66 Respiratory 16 18 Rate Blood Pressure 117/74 149/76 O2 Sat by Pulse 98 97 Oximetry Medical Decision Making - Medical Decision Making Based on the patient's presentation and physical exam, I do believe that she is likely experiencing tiredness and lethargy from possible narcotic use, the patient does have signs of being intoxicated with an opiate substance at this time based on her pupils and feeling tired. However cannot rule out syncopal episode at this time particularly with her age and past medical history. Neuro exam is completely normal, however we will obtain a screening CT despite no trauma. NIH is 0. Infectious labs including cardiac labs will be ordered. Patient was in agreement this plan. Patient otherwise has no acute complaints at this time. I will provide her with her normal 5 L nasal cannula oxygen and 1 L fluid bolus. Patient's EKG shows no signs of acute ischemia. Chest x-ray shows no acute cardiopulmonary process. Brain CT shows no acute intracranial process. Forearm x-ray revealed no acute process, signs of osteomyelitis. Laboratory studies are remarkable for a negative troponin. Urinalysis shows no signs of acute infection. Covid swab is negative. Remainder the labs are unremarkable. On reevaluation, patient remains alert and oriented with no deficits. I did discuss with the patient and would like to admit to the hospital, trend troponins, to ensure that there is no further episodes of possible syncope. She was in agreement this plan. We will obtain wound cultures and start the patient on vancomycin for her right upper extremity sore with purulent discharge. Blood cultures are still pending at this time. Patient was in agreement this plan. I spoke with the admitting team under Dr. Gibson who accepted the patient. Patient was admitted in stable condition to observation. Cardiology was consulted. - Lab Data Result diagrams: 12/16/21 15:37 12/16/21 15:37 Lab Results 12/16/21 12/16/21 12/16/21 Range/Units 15:30 15:37 15:37 WBC 6.3 (3.8-10.6) k/uL RBC 3.66 L (3.80-5.40) m/uL Hgb 11.4 (11.4-16.0) gm/dL Hct 34.5 (34.0-46.0) % MCV 94.2 (80.0-100.0) fL MCH 31.1 (25.0-35.0) pg MCHC 33.0 (31.0-37.0) g/dL RDW 13.7 (11.5-15.5) % Plt Count 119 L (150-450) k/uL MPV 9.3 Neutrophils % 79 % Lymphocytes % 12 % Monocytes % 4 % Eosinophils % 2 % Basophils % 1 % Neutrophils # 5.0 (1.3-7.7) k/uL Lymphocytes # 0.8 L (1.0-4.8) k/uL Monocytes # 0.3 (0-1.0) k/uL Eosinophils # 0.2 (0-0.7) k/uL Basophils # 0.0 (0-0.2) k/uL PT 11.3 (9.0-12.0) sec INR 1.1 (<1.2) APTT 24.1 (22.0-30.0) sec Sodium (137-145) mmol/L Potassium (3.5-5.1) mmol/L Chloride (98-107) mmol/L Carbon Dioxide (22-30) mmol/L Anion Gap mmol/L BUN (7-17) mg/dL Creatinine (0.52-1.04) mg/dL Est GFR (CKD-EPI)AfAm (>60 ml/min/1.73 sqM) Est GFR (CKD-EPI)NonAf (>60 ml/min/1.73 sqM) Glucose (74-99) mg/dL Plasma Lactic Acid Brennan (0.7-2.0) mmol/L Calcium (8.4-10.2) mg/dL Magnesium (1.6-2.3) mg/dL Total Bilirubin (0.2-1.3) mg/dL AST (14-36) U/L ALT (4-34) U/L Alkaline Phosphatase (38-126) U/L Troponin I (0.000-0.034) ng/mL Total Protein (6.3-8.2) g/dL Albumin (3.5-5.0) g/dL Urine Color Yellow Urine Appearance Clear (Clear) Urine pH 5.5 (5.0-8.0) Ur Specific [place] 1.020 (1.001-1.035) Urine Protein Trace H (Negative) Urine Glucose (UA) Negative (Negative) Urine Ketones Negative (Negative) Urine Blood Negative (Negative) Urine Nitrite Negative (Negative) Urine Bilirubin Negative (Negative) Urine Urobilinogen <2.0 (<2.0) mg/dL Ur Leukocyte Esterase Small H (Negative) Urine RBC 2 (0-5) /hpf Urine WBC 5 (0-5) /hpf Ur Squamous Epith Cells 1 (0-4) /hpf Hyaline Casts 4 H (0-2) /lpf 12/16/21 12/16/21 12/16/21 Range/Units 15:37 15:37 15:37 WBC (3.8-10.6) k/uL RBC (3.80-5.40) m/uL Hgb (11.4-16.0) gm/dL Hct (34.0-46.0) % MCV (80.0-100.0) fL MCH (25.0-35.0) pg MCHC (31.0-37.0) g/dL RDW (11.5-15.5) % Plt Count (150-450) k/uL MPV Neutrophils % % Lymphocytes % % Monocytes % % Eosinophils % % Basophils % % Neutrophils # (1.3-7.7) k/uL Lymphocytes # (1.0-4.8) k/uL Monocytes # (0-1.0) k/uL Eosinophils # (0-0.7) k/uL Basophils # (0-0.2) k/uL PT (9.0-12.0) sec INR (<1.2) APTT (22.0-30.0) sec Sodium 137 (137-145) mmol/L Potassium 5.0 (3.5-5.1) mmol/L Chloride 107 (98-107) mmol/L Carbon Dioxide 20 L (22-30) mmol/L Anion Gap 10 mmol/L BUN 23 H (7-17) mg/dL Creatinine 1.15 H (0.52-1.04) mg/dL Est GFR (CKD-EPI)AfAm 55 (>60 ml/min/1.73 sqM) Est GFR (CKD-EPI)NonAf 47 (>60 ml/min/1.73 sqM) Glucose 113 H (74-99) mg/dL Plasma Lactic Acid Brennan 1.2 (0.7-2.0) mmol/L Calcium 8.9 (8.4-10.2) mg/dL Magnesium 1.7 (1.6-2.3) mg/dL Total Bilirubin 0.5 (0.2-1.3) mg/dL AST 28 (14-36) U/L ALT 16 (4-34) U/L Alkaline Phosphatase 94 (38-126) U/L Troponin I <0.012 (0.000-0.034) ng/mL Total Protein 6.9 (6.3-8.2) g/dL Albumin 4.0 (3.5-5.0) g/dL Urine Color Urine Appearance (Clear) Urine pH (5.0-8.0) Ur Specific [place]ner (1.001-1.035) Urine Protein (Negative) Urine Glucose (UA) (Negative) Urine Ketones (Negative) Urine Blood (Negative) Urine Nitrite (Negative) Urine Bilirubin (Negative) Urine Urobilinogen (<2.0) mg/dL Ur Leukocyte Esterase (Negative) Urine RBC (0-5) /hpf Urine WBC (0-5) /hpf Ur Squamous Epith Cells (0-4) /hpf Hyaline Casts (0-2) /lpf - EKG Data -: EKG Interpreted by Me EKG Comments: 12-lead Electrocardiogram Interpretation Note EKG was reviewed and interpreted by myself. 12-lead ECG performed at 1441 is interpreted by me as revealing normal sinus rhythm at a rate of 62 beats per minute. [place] is normal. OK interval is 156 ms, QRS duration is 86 ms, QTc is 442 ms.. There is an isolated T-wave inversion in lead III.. R wave progression across the precordium was satisfactory. By my interpretation this EKG is non- diagnostic for acute ischemia. Disposition Clinical Impression: Syncope, Cellulitis, Skin infection Disposition: ADMITTED IP TO THIS HOSP Condition: Stable
[2021-12-16] MEDS ORDERED: SODIUM CHLORIDE 0.9% 1,000 ML IV STA ×2 (14:36→17:01)
--- NOTE | 2021-12-16 14:41 | CT ---
EXAMINATION TYPE: CT brain wo con DATE OF EXAM: 12/16/2021 HISTORY: Syncope. CT DLP: 1068.4 mGycm. Automated Exposure Control for Dose Reduction was Utilized. TECHNIQUE: CT scan of the head is performed without contrast. COMPARISON: CT brain July 03, 2019. FINDINGS: There is no acute intracranial hemorrhage or midline shift identified. There is mild-to-m oderate diffuse ventricular and sulcal prominence consistent with diffuse cerebral atrophy greatest o rodrigo bilateral frontal lobes redemonstrated. There is mild to moderate low-attenuation in the periven tricular white matter consistent with chronic small vessel ischemic change. Stable 8 mm ossification or osteoma left ethmoid sinus axial image 11 otherwise the globes are intact and the visualized sinu ses are clear. New Opacification of the left mastoid air cells greatest inferiorly. Nasal septum remains deviated to rig ht of midline. IMPRESSION: No acute intracranial hemorrhage or midline shift. There is mild to moderate diffuse ag e-related cerebral atrophy and chronic small vessel ischemic change redemonstrated. No significant c hange from prior study. New left-sided mastoid opacification raises concern for acute mastoiditis. Co rrelate clinically.
--- NOTE | 2021-12-16 15:15 | XR ---
EXAMINATION TYPE: XR chest 2V DATE OF EXAM: 12/16/2021 COMPARISON: Chest x-ray April 15, 2021 and older studies. HISTORY: COPD with weakness. TECHNIQUE: Frontal and lateral views of the chest are obtained. FINDINGS: Surgical change to the thoracolumbar spine is partially imaged. There is new mild cardiome salomon. Chronic parenchymal changes bilaterally with areas of increased opacity are redemonstrated. No pleural effusion or pneumothorax is seen. IMPRESSION: Background chronic parenchymal changes redemonstrated. New mild cardiomegaly with new int erstitial edema difficult to exclude on background chronic change. Correlate clinically.
--- NOTE | 2021-12-16 15:19 | XR ---
EXAMINATION TYPE: XR forearm RT DATE OF EXAM: 12/16/2021 CLINICAL HISTORY: Chronic wound. Pain and swelling. Rule out osteomyelitis. TECHNIQUE: Two views of the right forearm are obtained. COMPARISON: Prior right wrist x-rays 2016 FINDINGS: Osseous structures are demineralized which is noted to lower radiographic sensitivity. Ther e are osteotomy changes in the distal radius and ulna redemonstrated. There is marked carpal joint s pace narrowing with deformities at the base of the metacarpals now identified. Screw fragment in the third metacarpal is again seen. There are additional screw fragments proximal c arpal level redemonstrated. Most proximal screw has changed position more dorsal in location. There a re dorsal soft tissue calcifications again seen distal to this level. There is old displaced fracture deformity at right elbow joint. [id number] diffuse soft tissue swelling. No suspicious irregular bony destruction to suggest acute osteomyelitis. IMPRESSION: As above.
[2021-12-16 15:46] LABS: Basophils % (A) 1 %; Eosinophils # (A) 0.2 k/uL (0-0.7); Eosinophils % (A) 2 %; HCT 34.5 % (34.0-46.0); HGB 11.4 gm/dL (11.4-16.0); Lymphocytes # (A) 0.8 k/uL (1.0-4.8); Lymphocytes % (A) 12 %; MCH 31.1 pg (25.0-35.0); MCV 94.2 fL (80.0-100.0); Mean Platelet Volume 9.3; Monocytes # (A) 0.3 k/uL (0-1.0); Monocytes % (A) 4 %; Neutrophils % (A) 79 %; Platelet Count 119 k/uL (150-450); RBC 3.66 m/uL (3.80-5.40); RDW 13.7 % (11.5-15.5); WBC 6.3 k/uL (3.8-10.6)
[2021-12-16 15:55] LABS: Calcium 8.9 mg/dL (8.4-10.2); Magnesium 1.7 mg/dL (1.6-2.3); Total Bilirubin 0.5 mg/dL (0.2-1.3); Total Protein 6.9 g/dL (6.3-8.2)
[2021-12-16 16:08] LABS: INR 1.1 (<1.2); Partial Thromboplastin Time 24.1 sec (22.0-30.0); Prothrombin Time 11.3 sec (9.0-12.0)
[2021-12-16 16:19] LABS: Appearance,Urine Clear (Clear); Bilirubin,Urine Negative (Negative); Blood,Urine Negative (Negative); Color,Urine Yellow; Glucose,Urine (UA) Negative (Negative); Hyaline Casts,Urine 4 /lpf (0-2); Ketones,Urine Negative (Negative); Leukocyte Esterase,Urine Small (Negative); Nitrite,Urine Negative (Negative); PH, Urine 5.5 (5.0-8.0); Protein,Urine Trace (Negative); RBC,Urine 2 /hpf (0-5); Squamous Epithelial Cell,Urine 1 /hpf (0-4); Urobilinogen,Urine <2.0 mg/dL (<2.0); WBC,Urine 5 /hpf (0-5)
[2021-12-16] MEDS ORDERED: VANCOMYCIN IV PER PHARMACY 1 EACH MISC MISCELLANE PRN (16:53)
[2021-12-16] MEDS ORDERED: VANCOMYCIN 1,500 MG in SODIUM CHLORIDE 0.9% 250 ML IVPB STA (17:00)
[2021-12-16] MEDS ORDERED: NALOXONE 0.4 MG/ML 1 ML VIAL IV PRN (17:24)
[2021-12-16] MEDS ORDERED: DICYCLOMINE 10 MG CAP PO PRN (18:39)
[2021-12-16] MEDS: risperiDONE 2 MG TAB PO SCH (20:28)
[2021-12-16] MEDS: busPIRone HCl 10 MG TAB PO SCH (20:29)
[2021-12-16] MEDS: traZODone HCL 100 MG TAB PO SCH (20:29)
[2021-12-16] MEDS: HEPARIN SODIUM,PORCINE/PF 5,000 UNIT/0.5 ML SYRINGE SQ SCH (22:23)
[2021-12-17] MEDS: hydrALAZINE HCL 20 MG/ML 1 ML VIAL IVP PRN (00:23)
[2021-12-17] MEDS: LEVOTHYROXINE 100 MCG TAB PO SCH (05:17)
[2021-12-17] MEDS: PANTOPRAZOLE 40 MG TABLET PO SCH (08:10)
[2021-12-17] MEDS: oxyCODONE-APAP 7.5-325MG 1 EACH TAB PO PRN ×2 (08:10→21:19)
[2021-12-17] MEDS: SERTRALINE 100 MG TAB PO SCH (08:10)
[2021-12-17] MEDS: busPIRone HCl 10 MG TAB PO SCH ×2 (08:10→21:20)
[2021-12-17] MEDS: CALCIUM CARB-VIT D 500 MG-5 MCG TAB PO SCH (08:10)
[2021-12-17] MEDS: HEPARIN SODIUM,PORCINE/PF 5,000 UNIT/0.5 ML SYRINGE SQ SCH ×3 (08:10→21:19)
[2021-12-17] MEDS: RALOXIFENE 60 MG TAB PO SCH (08:10)
[2021-12-17] MEDS: ASCORBIC ACID 500 MG TAB PO SCH (08:10)
[2021-12-17] MEDS: ATORVASTATIN 10 MG TAB PO SCH (08:10)
[2021-12-17] MEDS: CHOLECALCIFEROL 25 MCG (1000 IU) TABLET PO SCH (08:10)
[2021-12-17 08:25] LABS: Basophils % (A) 0 %; Eosinophils # (A) 0.1 k/uL (0-0.7); Eosinophils % (A) 2 %; HGB 11.5 gm/dL (11.4-16.0); Hypochromasia Slight; Lymphocytes # (A) 0.5 k/uL (1.0-4.8); Lymphocytes % (A) 10 %; MCH 30.5 pg (25.0-35.0); MCHC 31.9 g/dL (31.0-37.0); MCV 95.7 fL (80.0-100.0); Mean Platelet Volume 9.3; Monocytes # (A) 0.3 k/uL (0-1.0); Monocytes % (A) 6 %; Neutrophils # (A) 4.2 k/uL (1.3-7.7); Neutrophils % (A) 81 %; Platelet Count 112 k/uL (150-450); RBC 3.76 m/uL (3.80-5.40); RDW 13.8 % (11.5-15.5); WBC 5.2 k/uL (3.8-10.6)
[2021-12-17] MEDS: ASPIRIN 81 MG PO SCH (08:33)
[2021-12-17 08:37] LABS: ALT 14 U/L (4-34); AST 29 U/L (14-36); African American GFR (CKD) 84 (>60 ml/min/1.73 sqM); Albumin/Globulin Ratio 1.4; Alkaline Phosphatase 94 U/L (38-126); Anion Gap 9 mmol/L; Blood Urea Nitrogen 17 mg/dL (7-17); Calcium 9.1 mg/dL (8.4-10.2); Carbon Dioxide 19 mmol/L (22-30); Chloride 113 mmol/L (98-107); Globulin 2.9 g/dL; Glucose 104 mg/dL (74-99); Magnesium 1.7 mg/dL (1.6-2.3); Non-African American GFR(CKD) 73 (>60 ml/min/1.73 sqM); Potassium 4.3 mmol/L (3.5-5.1); Sodium 141 mmol/L (137-145); Total Bilirubin 0.6 mg/dL (0.2-1.3); Total Protein 6.9 g/dL (6.3-8.2)
[2021-12-17] MEDS ORDERED: amLODIPine 5 MG TAB PO SCH ×2 (09:00→21:00)
[2021-12-17] MEDS ORDERED: lisinopriL 10 MG TAB PO SCH (09:00)
[2021-12-17] MEDS ORDERED: METOPROLOL TARTRATE 25 MG TAB PO SCH (09:00)
[2021-12-17] MEDS: SODIUM CHLORIDE 0.9% 1,000 ML IV SCH ×2 (09:00→23:31)
[2021-12-17] MEDS ORDERED: VANCOMYCIN 1,500 MG in SODIUM CHLORIDE 0.9% 250 ML IVPB SCH (09:00)
--- NOTE | 2021-12-17 10:01 | P.CRDCN ---
History of Present Illness Consult date: 12/17/21 History of present illness: HISTORY OF PRESENT ILLNESS: This is a 71-year-old female with a past medical history significant for hypertension, hyperlipidemia, chronic back pain with chronic narcotic use, hypothyroidism, COPD, fibromyalgia, and osteoarthritis. The patient also has a chronic wound to her right upper extremity. She has a deformity of her right upper arm which is chronic secondary to an old fracture. Patient does not follow with a land department head. We have been asked to see the patient in consultation for syncope. Patient examined at the bedside. Patient states she does not really remember what happened yesterday. Majority of HPI was taken from patient's daughter who I spoke with this morning on the phone. She states that yesterday when she went over to her mom's house she was sitting in the chair. She states that she slumped over multiple times and would "go out". She states she would have to call her name multiple times for her to wake up. She states when she woke up she was confused. She called EMS to bring her to the hospital. The daughter states that she thought maybe the patient was hypoxic but when EMS arrived her oxygen levels were within normal limits. The patient and her daughter deny any changes to her pain medication. Patient states that she saw her pain care physician last week but her regimen was not changed. The patient's daughter states she has a history of TIAs and she is concerned that there may be some neurological involvement. The patient's blood pressure was found to be significantly elevated with a systolic greater than 200. The patient does not take any antihypertensive medications at home. The patient claims she takes her blood pressure at home and it is usually around a systolic of 120. The patient's daughter does report that she was on 3 or 4 and hypertensive medications last year when she was hospitalized but since then has been taken off of them. EKG reveals sinus mechanism with nonspecific ST-T wave changes Chest xray background chronic parenchymal changes redemonstrated. Mild cardio megaly with new interstitial edema difficult to exclude on background chronic changes. Laboratory data: WBC 5.2. Hemoglobin 11.5. Platelet count 112. Sodium 141. Potassium 4.3. BUN 17. Creatinine 0.81. Lactic acid 1.2. Troponin negative 3. Current home cardiac medications include Lipitor 10 mg daily Most recent echocardiogram obtained in February 2021 revealed ejection fraction 55- 60%, mild aortic regurgitation, trace to mild mitral regurgitation, and mild t ricuspid regurgitation. REVIEW OF SYSTEMS: At the time of my exam: CONSTITUTIONAL: Denies fever or chills. HEENT: Denies blurred vision, vision changes, or eye pain. Denies hemoptysis CARDIOVASCULAR: Denies chest pain. Denies orthopnea. Denies PND. Denies palpitations RESPIRATORY: Denies shortness of breath. GASTROINTESTINAL: Denies abdominal pain. Denies nausea or vomiting. HEMATOLOGIC: Denies bleeding disorders. GENITOURINARY: Denies any blood in urine. SKIN: Denies pruitis. Denies rash. PHYSICAL EXAM: VITAL SIGNS: Reviewed. GENERAL: Well-developed in no acute distress. HEENT: Head is normocephalic. Pupils are equal, round. Sclerae anicteric. Mucous membranes of the mouth are moist. Neck supple. No JVD or thyromegaly LUNGS: Respirations even and unlabored. Lungs with decreased air exchange. HEART: Regular rate and rhythm. S1 and S2 heard. ABDOMEN: Soft. Nondistended. Nontender. EXTREMITIES: Chronic deformity to right upper extremity with wound present. Normal range of motion. No clubbing or cyanosis. Peripheral pulses intact. No lower extremity edema NEUROLOGIC: Awake and alert. Oriented x 3. ASSESSMENT: Pre-syncope, rule out cardiac versus neurological etiology, can not exclude opioid related Hypertensive urgency Hyperlipidemia History of hypertension per patient, not on antihypertensive medications on an outpatient basis COPD Chronic hypoxic respiratory failure on home oxygen Chronic back pain Chronic opioid use Fibromyalgia History of TIA PLAN: Obtain 2D echo to assess cardiac structure and function Resume home cardiac medications Add lisinopril 10 mg daily and metoprolol 25 mg daily Add amlodipine 5 mg at date night sitter blood pressure Check orthostatic blood pressures Check TSH Continue telemetry monitoring to assess for any arrhythmias Consult neurology for evaluation Patient's symptoms do not appear to be cardiac in nature. However we will continue to monitor the patient. Further recommendations for inpatient course Nurse practitioner note has been reviewed by physician. Signing provider agrees with the documented findings, assessment, and plan of care. Past Medical History Past Medical History: Cancer, COPD, Fibromyalgia, Osteoarthritis (OA), Pneumonia, Rheumatoid Arthritis (RA) Additional Past Medical History / Comment(s): Pt tested covid + 03/07/21 [facility] ER. 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 L hand and ulcer on L wrist History of Any Multi-Drug Resistant Organisms: None Reported Past Surgical History: Back Surgery, Hysterectomy, Joint Replacement, Orthopedic Surgery Additional Past Surgical History / Comment(s): L partial nephrectomy, R wrist surgery for fracture, 3 L spine surgeries, 2 cervical surgeries, L hemiarthroplasty d/t fracture, colonoscopy Past Anesthesia/Blood Transfusion Reactions: No Reported Reaction Past Psychological History: Depression Smoking Status: Former smoker Past Alcohol Use History: None Reported Past Drug Use History: None Reported - Past Family History Father Family Medical History: Cancer Additional Family Medical History / Comment(s): LUNG CA Mother Family Medical History: Osteoarthritis (OA) Medications and Allergies Home Medications Medication Instructions Recorded Confirmed Type Raloxifene [Evista] 60 mg PO DAILY 02/07/15 12/16/21 History Sertraline HCl [Zoloft] 200 mg PO DAILY 02/07/15 12/16/21 History risperiDONE [RisperDAL] 2 mg PO HS 04/05/15 12/16/21 History Pantoprazole Sodium [Protonix] 40 mg PO DAILY 08/28/16 12/16/21 History Ascorbic Acid [Vitamin C] 500 mg PO DAILY 01/14/20 12/16/21 History Atorvastatin [Lipitor] 10 mg PO DAILY 01/14/20 12/16/21 History Calcium Carbonate [Calcium] 600 mg PO DAILY 01/14/20 12/16/21 History busPIRone HCl [Buspar] 10 mg PO BID 01/14/20 12/16/21 History traZODone HCL 100 mg PO HS 01/14/20 12/16/21 History Naproxen 500 mg PO BID PRN 03/07/21 12/16/21 History Cholecalciferol [Vitamin D3 (25 25 mcg PO DAILY 12/16/21 12/16/21 History Mcg = 1000 Iu)] Dicyclomine HCl 10 - 20 mg PO QID PRN 12/16/21 12/16/21 History Ergocalciferol (Vitamin D2) 1,250 mcg PO WE 12/16/21 12/16/21 History [Drisdol (50,000 Iu)] Levothyroxine Sodium [Synthroid] 100 mcg PO DAILY 12/16/21 12/16/21 History Alamo-3 Fatty Acids [Alamo-3] 1,000 mg PO DAILY 12/16/21 12/16/21 History oxyCODONE-APAP 7.5-325MG [Percocet 1 tab PO Q6H PRN 12/16/21 12/16/21 History 7.5-325 mg] Allergies Allergy/AdvReac Type Severity Reaction Status Date / Time Penicillins Allergy Dyspnea Verified 12/16/21 17:26 aspirin AdvReac Nausea & Verified 12/16/21 17:26 Vomiting Physical Exam Vitals: Vital Signs Temp Pulse Pulse Resp BP BP Pulse Ox 12/17/21 07:00 97.5 F L 98 22 193/110 99 12/17/21 02:50 95 18 191/111 98 12/17/21 00:05 98.3 F 95 18 221/119 99 12/16/21 20:50 77 18 12/16/21 20:49 98.4 F 77 18 171/73 99 12/16/21 20:15 97.2 F L 74 20 194/84 99 12/16/21 18:05 66 18 149/76 97 12/16/21 14:00 98.2 F 62 16 117/74 98 Intake and Output 12/16/21 12/17/21 12/17/21 22:59 06:59 14:59 Other: Voiding Method Toilet Toilet # Voids 1 1 Weight 86.183 kg Results 12/17/21 06:56 12/17/21 06:56 Cardiac Enzymes 12/16/21 12/16/21 12/16/21 Range/Units 15:37 15:37 20:18 AST 28 (14-36) U/L Troponin I <0.012 <0.012 (0.000-0.034) ng/mL 12/16/21 Range/Units 22:55 AST (14-36) U/L Troponin I <0.012 (0.000-0.034) ng/mL Coagulation 12/16/21 Range/Units 15:37 PT 11.3 (9.0-12.0) sec APTT 24.1 (22.0-30.0) sec CBC 12/16/21 Range/Units 15:37 WBC 6.3 (3.8-10.6) k/uL RBC 3.66 L (3.80-5.40) m/uL Hgb 11.4 (11.4-16.0) gm/dL Hct 34.5 (34.0-46.0) % Plt Count 119 L (150-450) k/uL Comprehensive Metabolic Panel 12/16/21 Range/Units 15:37 Sodium 137 (137-145) mmol/L Potassium 5.0 (3.5-5.1) mmol/L Chloride 107 (98-107) mmol/L Carbon Dioxide 20 L (22-30) mmol/L BUN 23 H (7-17) mg/dL Creatinine 1.15 H (0.52-1.04) mg/dL Glucose 113 H (74-99) mg/dL Calcium 8.9 (8.4-10.2) mg/dL AST 28 (14-36) U/L ALT 16 (4-34) U/L Alkaline Phosphatase 94 (38-126) U/L Total Protein 6.9 (6.3-8.2) g/dL Albumin 4.0 (3.5-5.0) g/dL Current Medications Generic Name Dose Route Start Last Admin Trade Name Freq PRN Reason Stop Dose Admin Ascorbic Acid 500 mg 12/17/21 09:00 Ascorbic Acid 500 Mg Tab PO DAILY [facility] [place] Atorvastatin Calcium 10 mg 12/17/21 09:00 Atorvastatin 10 Mg Tab PO DAILY [facility] [place] Buspirone HCl 10 mg 12/16/21 21:00 12/16/21 20:29 Buspirone Hcl 10 Mg Tab PO 10 mg BID [facility] [place] Administration Calcium Carbonate 1 each 12/17/21 09:00 Calcium Carb-Vit D 500 Mg-5 Mcg Tab PO DAILY [facility] [place] Cholecalciferol 25 mcg 12/17/21 09:00 Cholecalciferol 25 Mcg (1000 Iu) Tablet PO DAILY [facility] Dicyclomine HCl 10 mg 12/16/21 18:39 Dicyclomine 10 Mg Cap PO QID PRN IBS Ergocalciferol 1,250 mcg 12/18/21 09:00 Ergocalciferol 1,250 Mcg (50,000 Iu) Capsule PO WE [facility] Heparin Sodium (Porcine) 5,000 unit 12/17/21 00:00 12/16/21 22:23 Heparin Sodium,Porcine/Pf 5,000 Unit/0.5 Ml Syringe SQ 5,000 unit Q8HR MARU Administration Hydralazine HCl 10 mg 12/17/21 00:15 12/17/21 00:23 Hydralazine Hcl 20 Mg/Ml 1 Ml Vial IVP 10 mg Q4HR PRN Administration Blood Pressure - High Vancomycin HCl 1,500 mg/ 250 mls @ 125 mls/hr 12/17/21 09:00 Sodium Chloride IVPB Q24H MARU Levothyroxine Sodium 100 mcg 12/17/21 06:30 12/17/21 05:17 Levothyroxine 100 Mcg Tab PO 100 mcg DAILY@0630 MARU Administration Naloxone HCl 0.2 mg 12/16/21 17:24 Naloxone 0.4 Mg/Ml 1 Ml Vial IV Q2M PRN Opioid Reversal Oxycodone/Acetaminophen 1 each 12/16/21 20:15 Oxycodone-Apap 7.5-325mg 1 Each Tab PO Q6H PRN Pain Pantoprazole Sodium 40 mg 12/17/21 07:30 Pantoprazole 40 Mg Tablet PO AC-BRKFST MARU Raloxifene HCl 60 mg 12/17/21 09:00 Raloxifene 60 Mg Tab PO DAILY [facility]U Risperidone 2 mg 12/16/21 21:00 12/16/21 20:28 Risperidone 2 Mg Tab PO 2 mg HS MARU Administration Sertraline HCl 200 mg 12/17/21 09:00 Sertraline 100 Mg Tab PO DAILY [facility] Trazodone HCl 100 mg 12/16/21 21:00 12/16/21 20:29 Trazodone Hcl 100 Mg Tab PO 100 mg HS MARU Administration Intake and Output 12/16/21 12/17/21 12/17/21 22:59 06:59 14:59 Other: Voiding Method Toilet Toilet # Voids 1 1 Weight 86.183 kg 12/16/21 15:37 12/16/21 15:37
--- NOTE | 2021-12-17 10:33 | HP ---
HISTORY AND PHYSICAL This 71-year-old white female was admitted with hypertension acceleration and syncope of unclear etiology, possibly dehydration. She has elevated BUN and creatinine and possible orthostatic changes. She was having multiple falls at home. She was brought to the hospital. She has a history COPD with chronic hypoxemic respiratory failure, on 5 L nasal cannula, rheumatoid arthritis, fibromyalgia, osteoarthritis. She complains of weakness, possible syncopal episode at home. She has taken oxycodone for many years at home. She states she only takes one a day, so it was not her pain pills that made her pass out. Denies any other complaints. She has never had this before. No nausea, vomiting. No blurred vision, weakness in arms or legs. She has severe rheumatoid arthritis in her extremities. She has a wound on her right forearm secondary to possible deviation in her wrist, arthritic joints and an open wound, for which cultures have been drawn. Home medicines are Evista 60 mg daily, Zoloft 200 mg daily, Risperdal 2 mg at night, Protonix 40 mg daily, Lipitor 10 mg daily, calcium 600 daily, BuSpar 10 mg b.i.d., trazodone 100 at bedtime, Naprosyn 500 b.i.d., vitamin D 50,000 units weekly, Synthroid 100 mcg daily, Percocet 7.5 every 6 hours. ALLERGIES: PENICILLIN. REVIEW OF SYSTEMS: Fourteen-point review of systems otherwise negative. PAST MEDICAL HISTORY: Fibromyalgia, osteoarthritis, rheumatoid arthritis. FAMILY HISTORY: Father had lung cancer, mother osteoarthritis. PHYSICAL EXAMINATION: Psych fair mood and affect. Breathing fairly easily. Giving the appropriate answers. Pupils equal, round, reactive. Lungs clear. Cardiovascular: S1, S2. No murmurs. Extremities: No edema. Skin with a 2 cm wound to the dorsal aspect of the right upper extremity with some purulent drainage. Temperature 98.2, pulse 60s, respiratory rate 16 to 18, blood pressure 117 to 149 over 70s, O2 97 to 98. ASSESSMENT: Syncope of unclear etiology. It probably is not the narcotics. She appears to be dehydrated with elevated BUN and creatinine. Possible sepsis from infection in her right wrist. CT scan of the brain is negative. Possibly due to hypertension acceleration. Blood pressure medicines. Get Cardiology involved. Continue to treat her breathing issues. Syncope possibly due to orthostatic changes. Will check those on her. MMODL / IJN: [id number] /
--- NOTE | 2021-12-17 11:37 | P.CNNES ---
History of Present Illness Consult date: 12/17/21 Requesting physician: Leslie Gross Reason for Consult: presyncope, hx of TIA History of Present Illness: This is a 71-year-old woman with medical history of hypertension, hyperlipidemia, hypothyroidism, chronic back low pain who had multiple surgeries, chronic opiate use, rheumatoid arthritis, fibromyalgia, chronic right upper extremity deformity secondary due to old fracture, chronic right upper extremity open wound, COPD on 5 L nasal cannula present to the emergency department via EMS on 12/16/2021 for concern possible syncopal episode. Neurology is consulted for presyncope and history of TIA. Patient is on oxycodone and the patient is feeling more sleepy and she is a concern that she's passing out and that is why she called EMS. It seems that the patient was sitting in a chair and the patient slumped over multiple times and would "go out". Her daughter had to call her name multiple times to wake her up. When she woke up she would be confused. Patient to the medication has not been modified recently. It seems that the patient was on 3 or 4 hypertensive medication last year but has been taken off of them and her blood pressure has been normal at home and she is not on any antihypertensive medication at home. The daughter notified that patient possibly had minim-strokes in the past but patient denies that. Some of the patient will medication consist of Lipitor 10 mg, Synthroid, Zoloft, naproxen, risperidone, trazodone, Protonix,. Buspar, oxycodone, vitamin C. Of note patient states she gets pain medication from pain specialist for her chronic back pain. She had a fracture of her right upper extremity and it was mechanical where she tripped and fractured right upper extremity and is malformed. Her last back surgery was in year 2010. Some other workup in the hospital consisted of: Initial vital signs was blood pressure of 117/74, heart rate of 62, respiratory of 16, temperature of 98.2 Fahrenheit oral, pulse ox of the 98% on 4 L of nasal cannula. During his hospital stay the patient's blood pressure has been the uncontrolled and it's been as high as 221/119. The platelets is 119,000 otherwise CBC with differential is unremarkable. Creatinine is 1.15, serum glucose is 113 otherwise the rest of the chemistry panel is unremarkable. Calcium is 8.9, magnesium is 1.7. TSH is 3.2-0. Stone virus PCR was not detected. Urine analysis seems negative for you know tract infection. CT of the head is reported as no acute intracranial hemorrhage or midline shift. There is mild to moderate diffuse age-related cerebral atrophy and chronic small vessel ischemic changes redemonstrated. No significant change from prior study. Left-sided the mastoid opacification raises concern for acute mastoiditis. I reviewed the CT of the head and there is no acute subacute ischemic stroke that's appreciable and there is no other prodromal hemorrhage. Review of Systems Review of system: The 12 point system was reviewed and apparent positive and negative per HPI. Past Medical History Past Medical History: Cancer, COPD, Fibromyalgia, Osteoarthritis (OA), Pneumonia, Rheumatoid Arthritis (RA) Additional Past Medical History / Comment(s): Pt tested covid + 03/07/21 [facility] ER. 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 L hand and ulcer on L wrist History of Any Multi-Drug Resistant Organisms: None Reported Past Surgical History: Back Surgery, Hysterectomy, Joint Replacement, Orthopedic Surgery Additional Past Surgical History / Comment(s): L partial nephrectomy, R wrist surgery for fracture, 3 L spine surgeries, 2 cervical surgeries, L hemiarthroplasty d/t fracture, colonoscopy Past Anesthesia/Blood Transfusion Reactions: No Reported Reaction Past Psychological History: Depression Smoking Status: Former smoker Past Alcohol Use History: None Reported Past Drug Use History: None Reported - Past Family History Father Family Medical History: Cancer Additional Family Medical History / Comment(s): LUNG CA Mother Family Medical History: Osteoarthritis (OA) Medications and Allergies Home Medications Medication Instructions Recorded Confirmed Type Raloxifene [Evista] 60 mg PO DAILY 02/07/15 12/16/21 History Sertraline HCl [Zoloft] 200 mg PO DAILY 02/07/15 12/16/21 History risperiDONE [RisperDAL] 2 mg PO HS 04/05/15 12/16/21 History Pantoprazole Sodium [Protonix] 40 mg PO DAILY 08/28/16 12/16/21 History Ascorbic Acid [Vitamin C] 500 mg PO DAILY 01/14/20 12/16/21 History Atorvastatin [Lipitor] 10 mg PO DAILY 01/14/20 12/16/21 History Calcium Carbonate [Calcium] 600 mg PO DAILY 01/14/20 12/16/21 History busPIRone HCl [Buspar] 10 mg PO BID 01/14/20 12/16/21 History traZODone HCL 100 mg PO HS 01/14/20 12/16/21 History Naproxen 500 mg PO BID PRN 03/07/21 12/16/21 History Cholecalciferol [Vitamin D3 (25 25 mcg PO DAILY 12/16/21 12/16/21 History Mcg = 1000 Iu)] Dicyclomine HCl 10 - 20 mg PO QID PRN 12/16/21 12/16/21 History Ergocalciferol (Vitamin D2) 1,250 mcg PO WE 12/16/21 12/16/21 History [Drisdol (50,000 Iu)] Levothyroxine Sodium [Synthroid] 100 mcg PO DAILY 12/16/21 12/16/21 History Plover-3 Fatty Acids [Plover-3] 1,000 mg PO DAILY 12/16/21 12/16/21 History oxyCODONE-APAP 7.5-325MG [Percocet 1 tab PO Q6H PRN 12/16/21 12/16/21 History 7.5-325 mg] Allergies Allergy/AdvReac Type Severity Reaction Status Date / Time Penicillins Allergy Dyspnea Verified 12/16/21 17:26 aspirin AdvReac Nausea & Verified 12/16/21 17:26 Vomiting Physical Examination - Vital Signs Vital Signs: Vital Signs Temp Pulse Pulse Resp BP BP Pulse Ox 12/17/21 07:00 97.5 F L 98 22 193/110 99 12/17/21 02:50 95 18 191/111 98 12/17/21 00:05 98.3 F 95 18 221/119 99 12/16/21 20:50 77 18 12/16/21 20:49 98.4 F 77 18 171/73 99 12/16/21 20:15 97.2 F L 74 20 194/84 99 12/16/21 18:05 66 18 149/76 97 12/16/21 14:00 98.2 F 62 16 117/74 98 Intake and Output 12/16/21 12/17/21 12/17/21 22:59 06:59 14:59 Other: Voiding Method Toilet Toilet # Voids 1 1 Weight 86.183 kg GENERAL: The patient is lying in bed and is not in acute distress. CHEST: The heart rate is regular rate rhythm. No murmurs to auscultation. No carotid bruit bilaterally. LUNG: Clear to auscultation bilaterally no wheezing noted throughout. Not labored breathing. ABDOMEN/GI: Bowel sounds present in all 4 quadrants. No tenderness to palpation throughout. NEUROLOGICAL: Higher mental function: The patient is awake, alert, oriented to self, place and time. Patient is following commands. No aphasia and no neglect. Cranial nerves: The pupils are round, equal and reactive to light. Visual hewitt are full to confrontation throughout. Extraocular movement is intact no nystagmus is noted. Facial sensation is normal to touch throughout. The facial strength is normal throughout. Hearing is mildly decreased bilaterally to hand rub. Tongue is midline and moved [id number] without any difficulty. No dysarthria is noted. Shoulder shrug is normal bilaterally. Motor: Gait is deferred. The strength is right upper extremity is malformed from old fracture but is able to lift above gravity. Otherwise rest of strength is 5/5 throughout. Cerebellum: Normal finger to nose bilaterally. Sensation: Sensation is normal to touch throughout. Reflexes (right/left):1+ throughout. Plantars are mute bilaterally. Results - Laboratory Findings CBC and BMP: 12/17/21 06:56 12/17/21 06:56 Abnormal Lab Findings: Abnormal Labs 12/16/21 12/16/21 12/16/21 15:30 15:37 15:37 RBC 3.66 L Plt Count 119 L Lymphocytes # 0.8 L Chloride Carbon Dioxide 20 L BUN 23 H Creatinine 1.15 H Glucose 113 H Urine Protein Trace H Ur Leukocyte Esterase Small H Hyaline Casts 4 H 12/17/21 12/17/21 06:56 06:56 RBC 3.76 L Plt Count 112 L Lymphocytes # 0.5 L Chloride 113 H Carbon Dioxide 19 L BUN Creatinine Glucose 104 H Urine Protein Ur Leukocyte Esterase Hyaline Casts Assessment and Plan Assessment: * Near-Syncope episode. Unsure exact cause. Unsure if due to opoid use vs uncontrolled hypertension. * Hypertensive urgency * History of reported ?TIA (per daughter that she notified cardiology team) but patient denies of this history of TIA and upon speaking to other family history no diagnosis of TIA and no focality with episode but had near syncope episode possibly in past. 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 I will not start the patient on anti-epileptic drug unless there is epileptiform discharges or seizure on the EEG. Ordered MRI Brain and carotid duplex. Orthostatic vitals as ordered and 2D echo is ordered by cardiology team. Every 4 hours neuro checks Patient is on cardiac monitoring ID team is consulted by the primary team for cellulitis of the arm. Cardiology team is on board Defer the rest of the medical measure the primary team The plan is discussed with the patient's nurse. Thank you for the consultation. Rito White M.D. Neuro-Hospitalist. Time with Patient: Greater than 30
--- NOTE | 2021-12-17 12:35 | US ---
EXAMINATION TYPE: US carotid duplex BILAT DATE OF EXAM: 12/17/2021 COMPARISON: NONE CLINICAL HISTORY: syncope. EXAM MEASUREMENTS: RIGHT: Peak Systolic Velocity (PSV) cm/sec ----- Right CCA: 69.4 ----- Right ICA: 125.0 ----- Right ECA: 116.0 ICA/CCA ratio: 1.80 RIGHT: End Diastole cm/sec ----- Right CCA: 13.2 ----- Right ICA: 40.3 ----- Right ECA: 13.6 LEFT: Peak Systolic Velocity (PSV) cm/sec ----- Left CCA: 74.4 ----- Left ICA: 183.0 ----- Left ECA: 368.0 ICA/CCA ratio: 2.46 LEFT: End Diastole cm/sec ----- Left CCA: 16.5 ----- Left ICA: 61.8 ----- Left ECA: 33.3 VERTEBRALS (direction of flow): Right Vertebral: Antegrade Left Vertebral: Antegrade Rhythm: Normal Elevated velocities evident for stenosis are seen within the left ICA as well as the left ECA more si gnificantly. Plaque formation seen bilaterally, with soft plaque seen within the left ICA and ECA. IMPRESSION: 1. Atheromatous plaquing present at the bilateral carotid bifurcations contributing to moderate inter nal carotid artery stenosis, between 50 and 69%. This is greater on the left than the right based on velocities. Criteria for Assigning % of Stenosis / Diameter reduction (Estimation based on the indirect measurements of the internal carotid artery velocities (ICA PSV). 1. Normal (no stenosis)=ICA PSV < 125 cm/s: ratio < 2.0: ICA EDV<40 cm/s. 2. Less than 50% stenosis=ICA PSV < 125 cm/s: ratio < 2.0: ICA EDV<40 cm/s. 3. 50 to 69% stenosis=ICA PSV of 125 to 230 cm/s: ration 2.0 ? 4.0: ICA EDV 40-100 cm/s. 4. Greater than 70% stenosis to near occlusion= ICA PSV > 230 cm/s: ratio > 4.0: ICA EDV > 100 cm/s. 5. Near occlusion= ICA PSV velocities may be low or undetectable: variable ratio and ICA EDV. 6. Total occlusion=unable to detect flow.
--- NOTE | 2021-12-17 13:01 | ECHOF ---
Referral Reason:lv function MEASUREMENTS -------- HEIGHT: 160.0 cm WEIGHT: 86.2 kg BP: 193/110 RVIDd: 2.8 cm (< 3.3) IVSd: 1.3 cm (0.6 - 1.1) LVIDd: 4.1 cm (3.9 - 5.3) LVPWd: 1.2 cm (0.6 - 1.1) IVSs: 1.6 cm LVIDs: 2.6 cm LVPWs: 1.5 cm LA Diam: 3.3 cm (2.7 - 3.8) LAESV Index (A-L): 28.28 ml/m Ao Diam: 2.9 cm (2.0 - 3.7) AV Cusp: 1.7 cm (1.5 - 2.6) MV EXCURSION: 17.614 mm (> 18.000) MV EF SLOPE: 91 mm/s (70 - 150) EPSS: 0.5 cm MV E Isaiah: 1.28 m/s MV DecT: 126 ms MV A Isaiah: 1.04 m/s MV E/A Ratio: 1.24 RAP: 5.00 mmHg RVSP: 38.79 mmHg FINDINGS -------- Sinus rhythm. This was a technically adequate study. The left ventricular size is normal. There is mild concentric left ventricular hypertrophy. Overa ll left ventricular systolic function is normal with, an EF between 55 - 60 %. The right ventricle is normal in size. Normal LA size by volume 22+/-6 ml/m2. The right atrium is normal in size. Negative saline bubbles study. No shunt noted Aneurysmal Interatrial septum. There is mild aortic valve sclerosis. Trace to mild aortic regurgitation. Mild mitral annular calcification present. Mild mitral regurgitation is present. Mild tricuspid regurgitation present. There is mild pulmonary hypertension. The right ventricular systolic pressure, as measured by Doppler, is 38.79mmHg. The pulmonic valve is normal. The aortic root size is normal. Normal inferior vena cava with normal inspiratory collapse consistent with estimated right atrial pre ssure of 5 mmHg. There is no pericardial effusion. CONCLUSIONS -------- 1. The left ventricular size is normal. 2. There is mild concentric left ventricular hypertrophy. 3. Overall left ventricular systolic function is normal with, an EF between 55 - 60 %. 4. Negative saline bubbles study. No shunt noted 5. There is mild aortic valve sclerosis. 6. Trace to mild aortic regurgitation. 7. Mild mitral annular calcification present. 8. Mild mitral regurgitation is present. 9. Mild tricuspid regurgitation present. 10. There is mild pulmonary hypertension. 11. The right ventricular systolic pressure, as measured by Doppler, is 38.79mmHg. 12. There is no pericardial effusion. WASTEWATER ENGINEER: Caty Howard RDCS
--- NOTE | 2021-12-17 14:25 | MR ---
EXAMINATION TYPE: MR brain wo con DATE OF EXAM: 12/17/2021 COMPARISON: 12/16/2021 CT brain HISTORY: Altered mental status. Rule out seizure. CONTRAST: Performed utilizing 0 mL intravenous Gadavist gadolinium contrast. TECHNIQUE: Multiplanar, multiecho imaging on a 3.0 Gabrielle magnet is performed through the brain. Stud y is not performed within 24 hours of arrival to the hospital. The craniovertebral junction has some narrowing at the C2-3 level estimated at 0.7 cm. Consider follo w-up MRI cervical spine to evaluate stenosis and cord impingement. The pituitary is normal. Diffusion-weighted imaging is performed. No abnormal hyperintensity is present to suggest an acute i ntracranial infarct or acute ischemic change. Periventricular white matter hyperintensities are present. Findings are nonspecific but could be rela breezy to microvascular ischemic change. Ventricles and sulci are mildly prominent for the patient age. Fluid-filled left mastoid air cells are present. Correlate for acute left mastoiditis. IMPRESSIONS: 1. No acute intracranial process. 2. Chronic appearing periventricular white matter ischemic changes and mild age related atrophy. 3. Clinical correlation recommended for acute mastoiditis. 4. Narrowing of the proximal cervical spine at the C2-3 level. Consider follow-up MRI of the cervical spine to evaluate for spinal canal stenosis and cord impingement.
[2021-12-17] MEDS: traZODone HCL 100 MG TAB PO SCH (21:20)
[2021-12-17] MEDS: risperiDONE 2 MG TAB PO SCH (21:20)
[2021-12-18] MEDS: VANCOMYCIN 1,500 MG in SODIUM CHLORIDE 0.9% 250 ML IVPB SCH ×2 (01:28→20:16)
[2021-12-18] MEDS: LEVOTHYROXINE 100 MCG TAB PO SCH (05:43)
[2021-12-18] MEDS ORDERED: METOPROLOL TARTRATE 25 MG TAB PO SCH (09:00)
[2021-12-18] MEDS ORDERED: METOPROLOL TARTRATE 50 MG TAB PO SCH (09:00)
[2021-12-18] MEDS ORDERED: ERGOCALCIFEROL 1,250 MCG (50,000 IU) CAPSULE PO SCH (09:00)
[2021-12-18 09:32] LABS: WBC 4.71 X 10*3/uL (4.50-10.00)
[2021-12-18 09:33] LABS: Basophils # (A) 0.02 X 10*3/uL (0.00-0.10); Basophils % (A) 0.4 %; Eosinophils # (A) 0.12 X 10*3/uL (0.04-0.35); Eosinophils % (A) 2.5 %; HCT 34.8 % (37.2-46.3); HGB 10.6 g/dL (12.0-15.0); Lymphocytes # (A) 0.74 X 10*3/uL (0.90-5.00); Lymphocytes % (A) 15.7 %; MCH 28.6 pg (27.0-32.0); MCHC 30.5 g/dL (32.0-37.0); MCV 94.1 fL (80.0-97.0); Monocytes # (A) 0.33 X 10*3/uL (0.20-1.00); Neutrophils # (A) 3.49 X 10*3/uL (1.80-7.70); Neutrophils % (A) 74.2 %; Platelet Count 121 X 10*3/uL (140-440); RDW 13.4 % (11.5-14.5)
--- NOTE | 2021-12-18 10:14 | P.PN ---
Subjective Progress Note Date: 12/18/21 HISTORY OF PRESENT ILLNESS: This is a 71-year-old female with a past medical history significant for hypertension, hyperlipidemia, chronic back pain with chronic narcotic use, hypothyroidism, COPD, fibromyalgia, and osteoarthritis. The patient also has a chronic wound to her right upper extremity. She has a deformity of her right upper arm which is chronic secondary to an old fracture. Patient does not follow with a resident care aide. We have been asked to see the patient in [facility] for syncope. Patient examined at the bedside. Patient states she does not really remember what happened yesterday. Majority of HPI was taken from patient's daughter who I spoke with this morning on the phone. She states that yesterday when she went over to her mom's house she was sitting in the chair. She states that she slumped over multiple times and would "go out". She states she would have to call her name multiple times for her to wake up. She states when she woke up she was confused. She called EMS to bring her to the hospital. The daughter states that she thought maybe the patient was hypoxic but when EMS arrived her oxygen levels were within normal limits. The patient and her daughter deny any changes to her pain medication. Patient states that she saw her pain care physician last week but her regimen was not changed. The patient's daughter states she has a history of TIAs and she is concerned that there may be some neurological involvement. The patient's blood pressure was found to be significantly elevated with a systolic greater than 200. The patient does not take any antihypertensive medications at home. The patient claims she takes her blood pressure at home and it is usually around a systolic of 120. The patient's daughter does report that she was on 3 or 4 and hypertensive medications last year when she was hospitalized but since then has been taken off of them. EKG reveals sinus mechanism with nonspecific ST-T wave changes Chest xray background chronic parenchymal changes redemonstrated. Mild cardio megaly with new interstitial edema difficult to exclude on background chronic changes. Laboratory data: WBC 5.2. Hemoglobin 11.5. Platelet count 112. Sodium 141. Potassium 4.3. BUN 17. Creatinine 0.81. Lactic acid 1.2. Troponin negative 3. Current home cardiac medications include Lipitor 10 mg daily Most recent echocardiogram obtained in February 2021 revealed ejection fraction 55- 60%, mild aortic regurgitation, trace to mild mitral regurgitation, and mild tricuspid regurgitation. 12/18/2021 Patient examined this morning at the bedside. Patient denies chest pain or pressure. Denies shortness of breath. Denies any further syncopal episodes. Denies dizziness or lightheadedness. Patient's blood pressure remains elevated. Echocardiogram completed revealing ejection fraction 55-60%, trace to mild aortic regurgitation, mild mitral regurgitation, mild tricuspid regurgitation, and mild pulmonary hypertension. Carotid Doppler completed revealing bilateral carotid stenosis of moderate amount 50-69%. PHYSICAL EXAM: VITAL SIGNS: Reviewed. GENERAL: Well-developed in no acute distress. HEENT: Head is normocephalic. Pupils are equal, round. Sclerae anicteric. Mucous membranes of the mouth are moist. Neck supple. No JVD or thyromegaly LUNGS: Respirations even and unlabored. Lungs with decreased air exchange. HEART: Regular rate and rhythm. S1 and S2 heard. ABDOMEN: Soft. Nondistended. Nontender. EXTREMITIES: Chronic deformity to right upper extremity with wound present. Normal range of motion. No clubbing or cyanosis. Peripheral pulses intact. No lower extremity edema NEUROLOGIC: Awake and alert. Oriented x 3. ASSESSMENT: Pre-syncope, rule out cardiac versus neurological etiology, can not exclude opioid related Hypertensive urgency Hyperlipidemia History of hypertension per patient, not on antihypertensive medications on an outpatient basis COPD Chronic hypoxic respiratory failure on home oxygen Chronic back pain Chronic opioid use Fibromyalgia History of TIA PLAN: Continue to monitor blood pressure Increase amlodipine to 10 mg daily Increase lisinopril to 20mg twice a day Increase metoprolol to 50 mg in the morning and 25 mg at night Patient will be discharged home with a 2 week event monitor at the time of discharge Further recommendations pending course Nurse practitioner note has been reviewed by physician. Signing provider agrees with the documented findings, assessment, and plan of care. Objective - Vital Signs Vital signs: Vital Signs Temp 98.4 F 12/18/21 07:00 Pulse 89 12/18/21 07:00 Resp 20 12/18/21 07:00 BP 195/102 12/18/21 07:00 Pulse Ox 98 12/18/21 07:00 Intake & Output 12/17/21 12/18/21 12/18/21 18:59 06:59 18:59 Intake Total 236 Balance 236 Intake: Oral 236 Other: Voiding Method Toilet Toilet # Voids 2 2 # Bowel Movements 1 - Labs CBC & Chem 7: 12/18/21 06:24 12/17/21 06:56 Labs: Abnormal Lab Results - Last 24 Hours (Table) 12/18/21 Range/Units 06:24 RBC 3.70 L (4.10-5.20) X 10*6/uL Hgb 10.6 L (12.0-15.0) g/dL Hct 34.8 L (37.2-46.3) % MCHC 30.5 L (32.0-37.0) g/dL Plt Count 121 L (140-440) X 10*3/uL Lymphocytes # 0.74 L (0.90-5.00) X 10*3/uL Microbiology - Last 24 Hours (Table) 12/16/21 18:08 Gram Stain - Preliminary Wrist - Right Wound Culture - Preliminary Gram Neg Bacilli Presumptive Staph aureus 12/16/21 15:30 Blood Culture - Preliminary Blood No Growth after 24 hours 12/16/21 15:15 Blood Culture - Preliminary Blood No Growth after 24 hours
[2021-12-18] MEDS: HEPARIN SODIUM,PORCINE/PF 5,000 UNIT/0.5 ML SYRINGE SQ SCH ×2 (10:39→16:31)
[2021-12-18] MEDS: ASCORBIC ACID 500 MG TAB PO SCH (10:39)
[2021-12-18] MEDS: ASPIRIN 81 MG PO SCH (10:40)
[2021-12-18] MEDS: SERTRALINE 100 MG TAB PO SCH (10:40)
[2021-12-18] MEDS: RALOXIFENE 60 MG TAB PO SCH (10:40)
[2021-12-18] MEDS: PANTOPRAZOLE 40 MG TABLET PO SCH (10:40)
[2021-12-18] MEDS: lisinopriL 20 MG TAB PO SCH ×2 (10:40→20:16)
[2021-12-18] MEDS: CALCIUM CARB-VIT D 500 MG-5 MCG TAB PO SCH (10:40)
[2021-12-18] MEDS: CHOLECALCIFEROL 25 MCG (1000 IU) TABLET PO SCH (10:41)
[2021-12-18] MEDS: amLODIPine 10 MG TAB PO SCH (10:41)
[2021-12-18] MEDS: METOPROLOL TARTRATE 50 MG TAB PO SCH (10:41)
[2021-12-18] MEDS: SODIUM CHLORIDE 0.9% 1,000 ML IV SCH (10:41)
[2021-12-18] MEDS: busPIRone HCl 10 MG TAB PO SCH ×2 (10:41→20:15)
[2021-12-18] MEDS: ATORVASTATIN 10 MG TAB PO SCH (10:41)
--- NOTE | 2021-12-18 10:56 | P.CONS ---
History of Present Illness - Reason for Consult Consult date: 12/17/21 cellulitis , right arm Requesting physician: Rudy Gibson - Chief Complaint weakness and non helaing wound right arm x weeks - History of Present Illness History of Present Illness : Patient is a 71-year-old female with a past medical history significant for right forearm fracture in this patient who did have a chronic deformity to the right upper extremity and did have an open wound patient also have a history of COPD chronic hypoxic respiratory failure on 5 L nasal cannula rheumatoid arthritis patient has been brought into the ER yesterday for evaluation of possible syncopal episode at home patient mention she was slightly sleepy today and was falling asleep in the chair however the system was concerned that she may have passed out EMS was called 9 the patient was brought to the ER for further evaluation on arrival to the ER patient was afebrile and no fever has been recorded subsequently patient did have a normal white count with no left shift creatinine was normal liver enzymes are normal urine was negative shaffer PCR was negative patient did have local cultures obtained which are currently pending blood culture has been obtained patient did have a chest x-ray background chronic parenchymal changes redemonstrated cardiomegaly with new interstitial edema difficult to exclude patient also have a forearm x-ray old displaced fracture deformity mild to moderate diffuse soft tissue swelling no suspicious irregular borders or extension to suggest osteomyelitis local culture has been obtained and the patient was started on vancomycin infectious disease was consulted for further management of antibiotic therapy Review of system: CONSTITUTIONAL: Positive for weakness denies high-grade fever. EYES: No complaint. ENT: No complaint. RESPIRATORY: Some shortness of breath. CARDIOVASCULAR: No complaint. GENITOURINARY: No complaint. GASTROINTESTINAL: No complaint. MUSCULOSKELETAL: As per history of present illness. INTEGUMENTARY : As per history of present illness PSYCHOLOGIC: No complaint. ENDOCRINE: No complaint. NEUROLOGIC: No complaint. Past medical history : Reviewed, documented below Past surgical history : Reviewed, documented below Social history: Reviewed, documented below Medications: Reviewed, as documented below EXAMINATION: Vital sigans= Reviewed and documented below GENERAL DESCRIPTION elderly female lying in bed, no distress. No tachypnea or accessory muscle of respiration use. HEENT: Shows Pallor , no scleral icterus. Oral mucous membrane is dry. NECK: Trachea central, no thyromegaly. LUNGS: Unlabored breathing. Decrease intensity of breath sounds. No wheeze or crackle. HEART: S1, S2, regular rate and rhythm. ABDOMEN: Soft, no tenderness , guarding or rigidity EXTREMITIES: No edema feet SKIN: No rash, no masses palpable. NEUROLOGICAL: The patient is awake, alert, oriented x3, mood and affect normal. LABS AND RADIOLOGY: Reviewed results see below Assessment : Patient presented to hospital with possible syncopal episode weakness in this patient who do have chronic medical condition of COPD on home O2 rheumatoid arthritis chronic deformity to the right upper extremity, previous old fracture and a chronic nonhealing wound, patient however is not running any fever white count is not elevated and there was no significant inflammatory changes around the wound however the wound looks deep underlying deeper infection italic surgery such as osteomyelitis Plan: 1-we will obtain inflammatory markers and wait for the culture to finalize 2-vancomycin pharmacy to dose target trough of 15 while watching kidney function and vancomycin trough closely 3-Aquacel silver dressing to the wound change every 48 hour We will follow on clinical condition and cultures to further adjust medication if needed Thank you for this consultation we will follow the patient along with you Past Medical History Past Medical History: Cancer, COPD, Fibromyalgia, Osteoarthritis (OA), Pneumonia, Rheumatoid Arthritis (RA) Additional Past Medical History / Comment(s): Pt tested covid + 03/07/21 [facility]. 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 L hand and ulcer on L wrist History of Any Multi-Drug Resistant Organisms: None Reported Past Surgical History: Back Surgery, Hysterectomy, Joint Replacement, Orthopedic Surgery Additional Past Surgical History / Comment(s): L partial nephrectomy, R wrist surgery for fracture, 3 L spine surgeries, 2 cervical surgeries, L hemiarthroplasty d/t fracture, colonoscopy Past Anesthesia/Blood Transfusion Reactions: No Reported Reaction Past Psychological History: Depression Smoking Status: Former smoker Past Alcohol Use History: None Reported Past Drug Use History: None Reported - Past Family History Father Family Medical History: Cancer Additional Family Medical History / Comment(s): LUNG CA Mother Family Medical History: Osteoarthritis (OA) Medications and Allergies Home Medications Medication Instructions Recorded Confirmed Type Raloxifene [Evista] 60 mg PO DAILY 02/07/15 12/16/21 History Sertraline HCl [Zoloft] 200 mg PO DAILY 02/07/15 12/16/21 History risperiDONE [RisperDAL] 2 mg PO HS 04/05/15 12/16/21 History Pantoprazole Sodium [Protonix] 40 mg PO DAILY 08/28/16 12/16/21 History Ascorbic Acid [Vitamin C] 500 mg PO DAILY 01/14/20 12/16/21 History Atorvastatin [Lipitor] 10 mg PO DAILY 01/14/20 12/16/21 History Calcium Carbonate [Calcium] 600 mg PO DAILY 01/14/20 12/16/21 History busPIRone HCl [Buspar] 10 mg PO BID 01/14/20 12/16/21 History traZODone HCL 100 mg PO HS 01/14/20 12/16/21 History Naproxen 500 mg PO BID PRN 03/07/21 12/16/21 History Cholecalciferol [Vitamin D3 (25 25 mcg PO DAILY 12/16/21 12/16/21 History Mcg = 1000 Iu)] Dicyclomine HCl 10 - 20 mg PO QID PRN 12/16/21 12/16/21 History Ergocalciferol (Vitamin D2) 1,250 mcg PO WE 12/16/21 12/16/21 History [Drisdol (50,000 Iu)] Levothyroxine Sodium [Synthroid] 100 mcg PO DAILY 12/16/21 12/16/21 History Kinross-3 Fatty Acids [Kinross-3] 1,000 mg PO DAILY 12/16/21 12/16/21 History oxyCODONE-APAP 7.5-325MG [Percocet 1 tab PO Q6H PRN 12/16/21 12/16/21 History 7.5-325 mg] Allergies Allergy/AdvReac Type Severity Reaction Status Date / Time Penicillins Allergy Dyspnea Verified 12/16/21 17:26 aspirin AdvReac Nausea & Verified 12/16/21 17:26 Vomiting Physical Exam Vitals: Vital Signs Temp Pulse Pulse Resp BP BP Pulse Ox 12/17/21 07:00 97.5 F L 98 22 193/110 99 12/17/21 02:50 95 18 191/111 98 12/17/21 00:05 98.3 F 95 18 221/119 99 12/16/21 20:50 77 18 12/16/21 20:49 98.4 F 77 18 171/73 99 12/16/21 20:15 97.2 F L 74 20 194/84 99 12/16/21 18:05 66 18 149/76 97 12/16/21 14:00 98.2 F 62 16 117/74 98 Intake and Output 12/16/21 12/17/21 12/17/21 22:59 06:59 14:59 Other: Voiding Method Toilet Toilet # Voids 1 1 Weight 86.183 kg Results CBC & Chem 7: 12/18/21 06:24 12/17/21 06:56 Labs: Abnormal Lab Results - Last 24 Hours (Table) 12/16/21 12/16/21 12/16/21 Range/Units 15:30 15:37 15:37 RBC 3.66 L (3.80-5.40) m/uL Plt Count 119 L (150-450) k/uL Lymphocytes # 0.8 L (1.0-4.8) k/uL Chloride (98-107) mmol/L Carbon Dioxide 20 L (22-30) mmol/L BUN 23 H (7-17) mg/dL Creatinine 1.15 H (0.52-1.04) mg/dL Glucose 113 H (74-99) mg/dL Urine Protein Trace H (Negative) Ur Leukocyte Esterase Small H (Negative) Hyaline Casts 4 H (0-2) /lpf 12/17/21 12/17/21 Range/Units 06:56 06:56 RBC 3.76 L (3.80-5.40) m/uL Plt Count 112 L (150-450) k/uL Lymphocytes # 0.5 L (1.0-4.8) k/uL Chloride 113 H (98-107) mmol/L Carbon Dioxide 19 L (22-30) mmol/L BUN (7-17) mg/dL Creatinine (0.52-1.04) mg/dL Glucose 104 H (74-99) mg/dL Urine Protein (Negative) Ur Leukocyte Esterase (Negative) Hyaline Casts (0-2) /lpf Microbiology - Last 24 Hours (Table) 12/16/21 18:08 Gram Stain - Preliminary Wrist - Right Wound Culture - Preliminary 12/16/21 18:08 Anaerobic Culture - Preliminary Wrist - Right
[2021-12-18 11:31] LABS: African American GFR (CKD) 71.9 (60.0-200.0); Albumin 4.2 g/dL (3.8-4.9); Albumin/Globulin Ratio 1.74 (1.60-3.17); Anion Gap 13.4 mmol/L (10.00-18.00); BUN/Creat Ratio 14.07 Ratio (12.00-20.00); Blood Urea Nitrogen 12.9 mg/dL (9.0-27.0); Calcium 9.2 mg/dL (8.7-10.3); Globulin 2.4 g/dL (1.6-3.3); Total Bilirubin 0.3 mg/dL (0.30-1.20); Total Protein 6.6 g/dL (6.2-8.2)
--- NOTE | 2021-12-18 11:32 | P.PN ---
Subjective Progress Note Date: 12/18/21 The patient is seen at bedside and he states he is feeling well and denies of any new neurological problems. Patient does complain of neck pain that radiates upwards that is chronic issue. Objective - Vital Signs Vital signs: Vital Signs Temp 98.4 F 12/18/21 07:00 Pulse 89 12/18/21 07:00 Resp 20 12/18/21 07:00 BP 195/102 12/18/21 07:00 Pulse Ox 98 12/18/21 07:00 Intake & Output 12/17/21 12/18/21 12/18/21 18:59 06:59 18:59 Intake Total 236 Balance 236 Intake: Oral 236 Other: Voiding Method Toilet Toilet # Voids 2 2 # Bowel Movements 1 - Exam GENERAL: The patient is lying in bed and is not in acute distress. NEUROLOGICAL: Higher mental function: The patient is awake, alert, oriented to self, place and time. Patient is following commands. No aphasia and no neglect. Cranial nerves: The pupils are round, equal and reactive to light. Visual hewitt are full to confrontation throughout. Extraocular movement is intact no nystagmus is noted. Facial sensation is normal to touch throughout. The facial strength is normal throughout. Hearing is mildly decreased bilaterally to hand rub. Tongue is midline and moved [id number] without any difficulty. No dysarthria is noted. Shoulder shrug is normal bilaterally. Motor: Gait is deferred. The strength is right upper extremity is malformed from old fracture but is able to lift above gravity. Otherwise rest of strength is 5/5 throughout. Cerebellum: Normal finger to nose bilaterally. Sensation: Sensation is normal to touch throughout. Reflexes (right/left):1+ throughout. Plantars are mute bilaterally. WORK-UP: Calcium is 8.9, magnesium is 1.7. TSH is 3.220. Stone virus PCR was not detected. Urine analysis seems negative for you know tract infection. CT of the head is reported as no acute intracranial hemorrhage or midline shift. There is mild to moderate diffuse age-related cerebral atrophy and chronic small vessel ischemic changes redemonstrated. No significant change from prior study. Left-sided the mastoid opacification raises concern for acute mastoiditis. I reviewed the CT of the head and there is no acute subacute ischemic stroke that's appreciable and there is no other prodromal hemorrhage. MR the brain is reported as no acute intracranial process. Chronic appearing periventricular white matter ischemic change and mild age-related atrophy. Clinical correlation recommended for acute mastoiditis. Narrowing of the proximal cervical spine is C2-C3 level. Consider follow-up of MRI of cervical spine to evaluate for spinal canal stenosis and cord impingement. Carotid duplex was reported as atheromatous plaquing present at the bilateral carotid bifurcation contributing to moderate internal carotid artery stenosis between 50-69%. There is greater on the left than the right based on the velocities. 2-D echo was reported as mild concentric left ventricular hypertrophy. Ejection fraction of 55-60%. Negative bubble study. No shunt noted that. Normal left atrial size by volume. - Labs CBC & Chem 7: 12/18/21 06:24 12/18/21 06:24 Labs: Abnormal Lab Results - Last 24 Hours (Table) 12/18/21 Range/Units 06:24 RBC 3.70 L (4.10-5.20) X 10*6/uL Hgb 10.6 L (12.0-15.0) g/dL Hct 34.8 L (37.2-46.3) % MCHC 30.5 L (32.0-37.0) g/dL Plt Count 121 L (140-440) X 10*3/uL Lymphocytes # 0.74 L (0.90-5.00) X 10*3/uL Microbiology - Last 24 Hours (Table) 12/16/21 18:08 Gram Stain - Preliminary Wrist - Right Wound Culture - Preliminary Gram Neg Bacilli Presumptive Staph aureus 12/16/21 15:30 Blood Culture - Preliminary Blood No Growth after 24 hours 12/16/21 15:15 Blood Culture - Preliminary Blood No Growth after 24 hours Assessment and Plan Assessment: * Near-Syncope episode. Unsure exact cause. Unsure if due to opoid use vs uncontrolled hypertension. * Hypertensive urgency * Bilateral moderate internal carotid artery stenosis between 50-69%. There is greater on the left than the right per carotid duplex. Consider CT angiography of the neck for further evaluation. * ?Narrowing of spinal cord between C2-C3 reported on MRI Brain * History of reported ?TIA (per daughter that she notified cardiology team) but patient denies of this history of TIA and upon speaking to other family hist ory no diagnosis of TIA and no focality with episode but had near syncope episode possibly in past. 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 I will not start the patient on anti-epileptic drug unless there is epileptiform discharges or seizure on the EEG. Bilateral moderate internal carotid artery stenosis between 50-69%. There is greater on the left than the right per carotid duplex. Therefore consulted vascular surgery team. ?Narrowing of spinal cord between C2-C3 reported on MRI Brain: Therefore ordered MRI C-spine and consulted Orthopedic surgery team. Orthostatic vitals as ordered and is pending to be done. Cardiology is on board. Every 4 hours neuro checks Patient is on cardiac monitoring ID team is consulted by the primary team for cellulitis of the arm. Cardiology team is on board Defer the rest of the medical measure the primary team The plan is discussed with the patient and her nurse. Rito White M.D. Neuro-Hospitalist. Time with Patient: Less than 30
--- NOTE | 2021-12-18 15:33 | P.CNOR ---
History of Present Illness - [facility] Consult date: 12/18/21 Requesting physician: Rito White Consult reason: other (Narrowing of C2-C3 spinal cord per MRI Brain) History of present illness: Patient is a 71-year-old female presenting to the emergency department on 12/16/2021 after possible syncopal episodes. 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 Neurologist was consulted for history of TIA. Vascular is consulted for carotid stenosis. We have been consulted for Narrowing of C2-C3 spinal cord per MRI Brain. Patient was seen at bedside this afternoon sitting up in chair with nasal cannula on. Patient does say she has had multiple spine surgeries in the past. Patient says her last back surgery was in 2010. Patient does not recall any the surgeon's names or what procedures were performed. Patient says she does remember she had 2 neck surgeries in the past. Today at bedside, patient is complaining of some upper left sided neck pain. Patient does say this pain radiates up toward her head as she points to the occipital lobe as well as parietal lobe on the left side. Patient says there is also some radiation of this pain down to her left shoulder. Patient says she does have a little bit of weakness in both shoulders which has been ongoing issue. Patient denies any current change in vision, however, patient says she has had some changes in vision over the past couple months when she has had syncopal type episodes that she has felt lightheaded and dizzy. Patient says she uses a walker normally to ambulate, but has been feeling weaker recently. Patient denies any recent falls/trauma. Patient also has had previous hip fracture surgery. Patient also does have a wound to the right upper extremity which is not actively draining but is open. Deformity is present in the right arm and patient says is due to fracture in her arm that is 3 years old. Patient denies increasing chest pain, increasing shortness breath, nausea, vomiting, change in vision, loss of bowel/bladder control. Review of Systems Constitutional: Reports as per HPI Past Medical History Past Medical History: Cancer, COPD, Fibromyalgia, Osteoarthritis (OA), Pneumonia, Rheumatoid Arthritis (RA) Additional Past Medical History / Comment(s): Pt tested covid + 03/07/21 [facility] ER. 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 L hand and ulcer on L wrist History of Any Multi-Drug Resistant Organisms: None Reported Past Surgical History: Back Surgery, Hysterectomy, Joint Replacement, Orthopedic Surgery Additional Past Surgical History / Comment(s): L partial nephrectomy, R wrist surgery for fracture, 3 L spine surgeries, 2 cervical surgeries, L hemiarthroplasty d/t fracture, colonoscopy Past Anesthesia/Blood Transfusion Reactions: No Reported Reaction Past Psychological History: Depression Smoking Status: Former smoker Past Alcohol Use History: None Reported Past Drug Use History: None Reported - Past Family History Father Family Medical History: Cancer Additional Family Medical History / Comment(s): LUNG CA Mother Family Medical History: Osteoarthritis (OA) Medications and Allergies Home Medications Medication Instructions Recorded Confirmed Type Raloxifene [Evista] 60 mg PO DAILY 02/07/15 12/16/21 History Sertraline HCl [Zoloft] 200 mg PO DAILY 02/07/15 12/16/21 History risperiDONE [RisperDAL] 2 mg PO HS 04/05/15 12/16/21 History Pantoprazole Sodium [Protonix] 40 mg PO DAILY 08/28/16 12/16/21 History Ascorbic Acid [Vitamin C] 500 mg PO DAILY 01/14/20 12/16/21 History Atorvastatin [Lipitor] 10 mg PO DAILY 01/14/20 12/16/21 History Calcium Carbonate [Calcium] 600 mg PO DAILY 01/14/20 12/16/21 History busPIRone HCl [Buspar] 10 mg PO BID 01/14/20 12/16/21 History traZODone HCL 100 mg PO HS 01/14/20 12/16/21 History Naproxen 500 mg PO BID PRN 03/07/21 12/16/21 History Cholecalciferol [Vitamin D3 (25 25 mcg PO DAILY 12/16/21 12/16/21 History Mcg = 1000 Iu)] Dicyclomine HCl 10 - 20 mg PO QID PRN 12/16/21 12/16/21 History Ergocalciferol (Vitamin D2) 1,250 mcg PO WE 12/16/21 12/16/21 History [Drisdol (50,000 Iu)] Levothyroxine Sodium [Synthroid] 100 mcg PO DAILY 12/16/21 12/16/21 History Gillespie-3 Fatty Acids [Gillespie-3] 1,000 mg PO DAILY 12/16/21 12/16/21 History oxyCODONE-APAP 7.5-325MG [Percocet 1 tab PO Q6H PRN 12/16/21 12/16/21 History 7.5-325 mg] Allergies Allergy/AdvReac Type Severity Reaction Status Date / Time Penicillins Allergy Dyspnea Verified 12/16/21 17:26 aspirin AdvReac Nausea & Verified 12/16/21 17:26 Vomiting Physical Examination Inspection: Multiple scars throughout the spine and both cervical and lumbar region. Open wound present on the right upper extremity which is not actively draining. Deformity present right upper arm due to chronic fracture. Negative for any evidence of open fractures, significant ecchymosis, erythema, nodules. Palpation: Patient has moderate tenderness to palpation along the posterior cervical spine on the left side. Patient does have some mild TTP along midline thoracic and lumbar spines. TTP along right distal arm near open wound Sensation: Sensation is equal, symmetric, bilaterally intact throughout lower extremities. Range of motion: Patient has full range of motion bilaterally in lower extremities in knee flexion/extension and plantar flexion/dorsiflexion. Patient has limited ROM in hip flexion bilaterally. Right upper extremity limited range of motion due to deformity. Left lower extremity full range of motion in elbow wrist and shoulder Motor: 4+/5 in resisted plantar flexion/dorsiflexion and knee flexion/extension bilaterally. 3+/5 in resisted hip flexion bilaterally. Front Desk Assistant strength, resisted wrist flexion 2+/5 in RUE. 4+5 in other major motor groups of RUE and LUE. Neurovascular: Cap refill < 3 sec in digits of upper extremities. Radial pulses palpable, 1+. Special tests: Negative Homans bilaterally. Negative clonus bilaterally. Negative Katelynn's bilaterally. Results - Labs Labs: Abnormal Lab Results - Last 24 Hours (Table) 12/18/21 12/18/21 Range/Units 06:24 06:24 RBC 3.70 L (4.10-5.20) X 10*6/uL Hgb 10.6 L (12.0-15.0) g/dL Hct 34.8 L (37.2-46.3) % MCHC 30.5 L (32.0-37.0) g/dL Plt Count 121 L (140-440) X 10*3/uL Lymphocytes # 0.74 L (0.90-5.00) X 10*3/uL Glucose 113 H (70-110) mg/dL Microbiology - Last 24 Hours (Table) 12/16/21 18:08 Gram Stain - Preliminary Wrist - Right Wound Culture - Preliminary Gram Neg Bacilli Presumptive Staph aureus 12/16/21 15:30 Blood Culture - Preliminary Blood No Growth after 24 hours 12/16/21 15:15 Blood Culture - Preliminary Blood No Growth after 24 hours H & H 12/16/21 12/17/21 12/18/21 Range/Units 15:37 06:56 06:24 Hgb 11.4 11.5 10.6 L (11.4-16.0) gm/dL Hct 34.5 36.0 34.8 L (34.0-46.0) % Coagulation 12/16/21 Range/Units 15:37 INR 1.1 (<1.2) Result Diagrams: 12/18/21 06:24 12/18/21 06:24 Assessment and Plan Assessment: 1. Neck pain 2. History of multiple spine surgeries 3. Chronic right upper extremity deformity; chronic right upper extremity wound 4. Multiple medical comorbidities Plan: 1. Neck pain; history of multiple spine surgeries - neuro has ordered MRI of C- spine for further evaluation based on findings of brain MRI. At this time we do not recommend any urgent/emergent orthopedic surgical intervention. We will await results of MRI C-spine before proceeding with any potential intervention. We'll continue follow patient while in hospital 2. Appreciate neuro management; appreciate medical management; appreciate vascular management 3. Pain management - oxycodone 4. DVT prophylaxis - heparin; aspirin 5. Protonix 6. PT/OT - weightbearing as tolerated with walker for assistance 7. Encourage incentive spirometer use 8. Appreciate consult Time with Patient: Less than 30
--- NOTE | 2021-12-18 15:41 | NM ---
EXAMINATION TYPE: NM bone 3 phase DATE OF EXAM: 12/18/2021 COMPARISON: NONE HISTORY: Right forearm nonhealing wound Triple phase bone scintigraphy was performed following the injection of 25.0 mCi Tc 99m MDP. Immedia te images and 3 hours post injection images acquired. FINDINGS: There is deformity of the right hand and wrist. Increased blood pool activity is noted at this level at the dorsum of the right wrist, some mild increased blood flow. Delayed imaging also show focal upt karen at the dorsal aspect of the right wrist seen best on the lateral view. Uptake along the left hand and wrist is thought likely to be degenerative. IMPRESSION: Difficult to exclude osteomyelitis, there are limitations to the exam.
--- NOTE | 2021-12-18 16:06 | P.GSCN ---
History of Present Illness Consult date: 12/18/21 Reason for Consult: Carotid stenosis Requesting physician: Rudy Gibson History of present illness: This is a 71-year-old female who presented to the emergency department yesterday with complaints syncopal episode at home. Apparently she had been having some weakness and her daughter said that she look like she was passing out. Patient has past medical history of chronic right upper extremity deformity secondary to old fracture and a chronic right upper extremity wound, COPD on home oxygen, rheumatoid arthritis, fibromyalgia, osteoarthritis and renal cancer. As part of her evaluation in the emergency department she had a CT of the brain that showed no acute intracranial hemorrhage or midline shift. Mild to moderate diffuse age cerebral atrophy and chronic small vessel ischemic change redemonstrated. No significant change from prior study. Patient also underwent a carotid ultrasound showing arthrometer test plaquing present at the bilateral carotid bifurcations contributing to moderate internal carotid artery stenosis between 50 and 69% this is greater on the left on the right based on velocities. MRI of the brain shows no acute intracranial process, chronic appearing periventricular white matter ischemic changes and mild age-related atrophy. The patient denies any focal deficits. She denies any difficulty with speaking, vision loss, upper or lower extremity weakness. She states that she actually always has some lower extremity weakness bilaterally. She denies any shortness of breath, chest pain, abdominal pain, nausea, or vomiting. Review of Systems A 14 point review of systems was completed all pertinent positives and negatives as stated in the HPI Past Medical History Past Medical History: Cancer, COPD, Fibromyalgia, Osteoarthritis (OA), Pneumonia, Rheumatoid Arthritis (RA) Additional Past Medical History / Comment(s): Pt tested covid + 03/07/21 [facility] ER. 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 L hand and ulcer on L wrist History of Any Multi-Drug Resistant Organisms: None Reported Past Surgical History: Back Surgery, Hysterectomy, Joint Replacement, Orthopedic Surgery Additional Past Surgical History / Comment(s): L partial nephrectomy, R wrist surgery for fracture, 3 L spine surgeries, 2 cervical surgeries, L hemiarthroplasty d/t fracture, colonoscopy Past Anesthesia/Blood Transfusion Reactions: No Reported Reaction Past Psychological History: Depression Smoking Status: Former smoker Past Alcohol Use History: None Reported Past Drug Use History: None Reported - Past Family History Father Family Medical History: Cancer Additional Family Medical History / Comment(s): LUNG CA Mother Family Medical History: Osteoarthritis (OA) Medications and Allergies Home Medications Medication Instructions Recorded Confirmed Type Raloxifene [Evista] 60 mg PO DAILY 02/07/15 12/16/21 History Sertraline HCl [Zoloft] 200 mg PO DAILY 02/07/15 12/16/21 History risperiDONE [RisperDAL] 2 mg PO HS 04/05/15 12/16/21 History Pantoprazole Sodium [Protonix] 40 mg PO DAILY 08/28/16 12/16/21 History Ascorbic Acid [Vitamin C] 500 mg PO DAILY 01/14/20 12/16/21 History Atorvastatin [Lipitor] 10 mg PO DAILY 01/14/20 12/16/21 History Calcium Carbonate [Calcium] 600 mg PO DAILY 01/14/20 12/16/21 History busPIRone HCl [Buspar] 10 mg PO BID 01/14/20 12/16/21 History traZODone HCL 100 mg PO HS 01/14/20 12/16/21 History Naproxen 500 mg PO BID PRN 03/07/21 12/16/21 History Cholecalciferol [Vitamin D3 (25 25 mcg PO DAILY 12/16/21 12/16/21 History Mcg = 1000 Iu)] Dicyclomine HCl 10 - 20 mg PO QID PRN 12/16/21 12/16/21 History Ergocalciferol (Vitamin D2) 1,250 mcg PO WE 12/16/21 12/16/21 History [Drisdol (50,000 Iu)] Levothyroxine Sodium [Synthroid] 100 mcg PO DAILY 12/16/21 12/16/21 History Seabeck-3 Fatty Acids [Seabeck-3] 1,000 mg PO DAILY 12/16/21 12/16/21 History oxyCODONE-APAP 7.5-325MG [Percocet 1 tab PO Q6H PRN 12/16/21 12/16/21 History 7.5-325 mg] Allergies Allergy/AdvReac Type Severity Reaction Status Date / Time Penicillins Allergy Dyspnea Verified 12/16/21 17:26 aspirin AdvReac Nausea & Verified 12/16/21 17:26 Vomiting Surgical - Exam Vital Signs Temp Pulse Resp BP Pulse Ox 98.2 F 62 16 117/74 98 12/16/21 14:00 12/16/21 14:00 12/16/21 14:00 12/16/21 14:00 12/16/21 14:00 General appearance: The patient is alert, oriented, appears in no acute distress. HET: Head is normocephalic and atraumatic. Pupils are equal and reactive. Neck: Supple without lymphadenopathy. Trachea midline. Heart: S1 S2. Regular rate and rhythm. Lungs: No crackles or wheezes are heard. Abdomen: Soft, nontender, nondistended. Extremities: Right upper extremity deformity, chronic wound to the dorsal aspect of her right wrist. Neurological: No focal deficits. Alert and oriented 3. This patient has f acial symmetry, speech is fluent, patient answers questions appropriately and follows commands. Results - Labs 12/18/21 06:24 12/18/21 06:24 Abnormal Lab Results - Last 24 Hours (Table) 12/18/21 12/18/21 Range/Units 06:24 06:24 RBC 3.70 L (4.10-5.20) X 10*6/uL Hgb 10.6 L (12.0-15.0) g/dL Hct 34.8 L (37.2-46.3) % MCHC 30.5 L (32.0-37.0) g/dL Plt Count 121 L (140-440) X 10*3/uL Lymphocytes # 0.74 L (0.90-5.00) X 10*3/uL Glucose 113 H (70-110) mg/dL Microbiology - Last 24 Hours (Table) 12/16/21 18:08 Gram Stain - Preliminary Wrist - Right Wound Culture - Preliminary Gram Neg Bacilli Presumptive Staph aureus 12/16/21 15:30 Blood Culture - Preliminary Blood No Growth after 24 hours 12/16/21 15:15 Blood Culture - Preliminary Blood No Growth after 24 hours Diabetes panel 12/18/21 Range/Units 06:24 Sodium 142 (135-145) mmol/L Potassium 4.0 (3.5-5.5) mmol/L Chloride 109 (96-109) mmol/L Carbon Dioxide 20.0 (20.0-27.5) mmol/L BUN 12.9 (9.0-27.0) mg/dL Creatinine 0.9 (0.6-1.5) mg/dL Glucose 113 H (70-110) mg/dL Calcium 9.2 (8.7-10.3) mg/dL AST 30 (13-35) U/L ALT 14 (8-44) U/L Alkaline Phosphatase 88 (41-126) U/L Total Protein 6.6 (6.2-8.2) g/dL Albumin 4.2 (3.8-4.9) g/dL Calcium panel 12/18/21 Range/Units 06:24 Calcium 9.2 (8.7-10.3) mg/dL Albumin 4.2 (3.8-4.9) g/dL Pituitary panel 12/18/21 Range/Units 06:24 Sodium 142 (135-145) mmol/L Potassium 4.0 (3.5-5.5) mmol/L Chloride 109 (96-109) mmol/L Carbon Dioxide 20.0 (20.0-27.5) mmol/L BUN 12.9 (9.0-27.0) mg/dL Creatinine 0.9 (0.6-1.5) mg/dL Glucose 113 H (70-110) mg/dL Calcium 9.2 (8.7-10.3) mg/dL Adrenal panel 12/18/21 Range/Units 06:24 Sodium 142 (135-145) mmol/L Potassium 4.0 (3.5-5.5) mmol/L Chloride 109 (96-109) mmol/L Carbon Dioxide 20.0 (20.0-27.5) mmol/L BUN 12.9 (9.0-27.0) mg/dL Creatinine 0.9 (0.6-1.5) mg/dL Glucose 113 H (70-110) mg/dL Calcium 9.2 (8.7-10.3) mg/dL Total Bilirubin 0.30 (0.30-1.20) mg/dL AST 30 (13-35) U/L ALT 14 (8-44) U/L Alkaline Phosphatase 88 (41-126) U/L Total Protein 6.6 (6.2-8.2) g/dL Albumin 4.2 (3.8-4.9) g/dL - Imaging Comments: As stated in the HPI Assessment and Plan Assessment: 1. Asymptomatic bilateral internal carotid artery stenosis 2. Syncope 3. COPD on home oxygen 4. Hypertension Plan: 1. Continue symptomatic supportive care 2. Await CTA head and neck results 3. Agree with aspirin and statin 4. No plans on any vascular surgical intervention, patient recommended to follow-up with vascular surgery upon discharge Thank you for this consultation, and allowing us take part in the plan of care of your patient during his hospital stay. The impression and plan of care has been dictated as directed. Dr. Staley I performed a history and examination of this patient, discussed the same with the dictator. I agree with the dictator's note ,documented as a scribe. Any additional findings or plans will be noted.
--- NOTE | 2021-12-18 16:43 | PN ---
PROGRESS NOTE The patient complained of neck pain radiating, as chronic issue. Her blood pressure is high still 190s over 100s. Seen by Cardiology. Pulse is 80s, respiratory 18-20, temp 98.4. She follows commands. Lungs are clear. Cardiovascular S1, S2. Magnesium 1.7, calcium is 8.9, TSH 3.2, negative for COVID. UA is negative. CT of the head shows negative. Possible acute mastoiditis. There is no acute stroke. MRI of the brain is negative also possible mastoiditis. Narrowing of the proximal cervical spine C2-C3. Waiting for the MRI. Carotid duplex shows 50-69 percent, moderate blockage only. Echo was normal. Bowel sounds negative. Wound culture gram-negative bacilli presumed Staph aureus. We are waiting for further cultures. Broad-spectrum antibiotics are being given. Osteomyelitis cannot be ruled out by bone scan, possibly due to uncontrolled hypertension, hypertensive urgency. Continue to wait for Cardiology to manipulate blood pressure. She has chronic opiate use for fibromyalgia, but she states she only takes 1 pain pill a day. Orthopedic surgery team and/or MRI of the brain is being ordered and we will see how bad the MRI shows for the neck. Cardiology is taking care of the hypertension. The EEG shows normal. PROGNOSIS: Guarded. MMODL / IJN: [id number] /
--- NOTE | 2021-12-18 17:01 | MR ---
EXAMINATION TYPE: MR cervical spine wo con DATE OF EXAM: 12/18/2021 COMPARISON: MRI 12/17/2021, CT 12/18/2021, CT 07/03/2019 HISTORY: Narrowing of spinal cord C2-C3 per brain report. TECHNIQUE: Multiplanar, multisequence images of the cervical spine were acquired without contrast. C2-C3: Mild posterior disc bulge causes slight anterior mass effect on the thecal sac. There is facet arthropathy change. No significant foraminal encroachment. C3-C4: Facet arthropathy is extensive, suspect there is foraminal encroachment bilaterally, no signif icant spinal stenosis or disc herniation, artifact limits evaluation C4-C5: No definite foraminal encroachment or evident disc herniation. No significant spinal stenosis. C5-C6: No evident disc herniation. There is foraminal encroachment suspected due to uncovertebral dale nt hypertrophy greater on the right than on the left. No significant spinal stenosis. C6-C7: Posterior extension of endplate disc complex results in some mild spinal stenosis, there is an terior mass effect on the thecal sac. Uncovertebral joint hypertrophy and facet arthropathy contribut e to cause foraminal encroachment. C7-T1: No evidence for degenerative disc disease. No disc bulge/herniation or protrusion. No Canal stenosis. Foramina are patent bilaterally. Cervical segments are intact. There is spinal curvature, postop changes are noted status post fusion at C3-4, C4-5, C5-6, reversal the normal cervical lordosis is present, intervertebral spacing block present at C5-6. There is artifact on the exam. Loss of disc height present at C6-7, associated loss of disc height signal present at C2-3. Cervical spinal cord is of normal signal. Craniovertebral ju nction relationships are within normal limits. IMPRESSION: Postoperative changes, multilevel foraminal encroachment. Spinal stenosis is greatest at C6-7 degener ative disc disease.
--- NOTE | 2021-12-18 17:28 | EEG ---
ELECTROENCEPHALOGRAM REPORT DATE OF SERVICE: 12/18/2021. CLINICAL HISTORY: This is a 71-year-old woman with near syncopal episode. The video EEG is obtained to evaluate for seizure epileptiform activity. ANTIEPILEPTIC DRUG: None. EEG TYPE: A routine 21 channel EEG is performed with video using the 10/20 electrode placement system. DESCRIPTION: Wakefulness and drowsiness are obtained. During the awake state the posterior dominant rhythm consists of low to moderate voltage that is well modulated, well sustained of 9.5-10 hertz activity. There is no physiological stage 2 sleep architecture. There is no focal slowing. Interictal and ictal none. ACTIVATION PROCEDURE: Photic stimulation did not evoke a posterior driving response. There is no abnormality during the photic stimulation. Hyperventilation is not performed. CLINICAL INTERPRETATION: This is a normal routine EEG. There is no focal slowing, epileptiform discharge or seizure on the EEG. Clinical correlation is recommended. CHAN / NAINA: [id number] / [email or web address]
--- NOTE | 2021-12-18 18:12 | CT ---
EXAMINATION TYPE: CT angio neck DATE OF EXAM: 12/18/2021 HISTORY: abnormal US COMPARISON: Carotid Doppler duplex 12/17/2021 CT DLP: 425.2 mGycm. Automated Exposure Control for Dose Reduction was Utilized. TECHNIQUE: CTA scan of the neck is performed with IV Contrast, patient injected with 100 mL of Isovu e 300, axial images are obtained, coronal and sagittal reformatted images are reviewed. 3D reconstruc breezy images are created on an independent workstation and reviewed. FINDINGS: Carotid/Vascular Structures: The innominate artery, transverse aorta, left and right common carotid, left and right subclavian arteries are patent, atheromatous changes are present. Left vertebral arter y is dominant. Proximal internal carotid artery in the left shows a stenosis corresponding to approximately 50% diam eter reduction, no hemodynamic significant stenosis is evident on the right within the proximal inter nal carotid artery, estimated at less than 50%. Other: Postop changes, degenerative disc change noted in the cervical spine. Is multilevel foraminal encroachment is noted on MRI cervical spine same date. Emphysematous changes are present in the upper lobes. Low dense left thyroid nodule is noted incidentally. IMPRESSION: Hemodynamic significant stenosis of the proximal internal carotid artery in the left as d escribed. Emphysema. NASCET criteria was used in interpretation of this exam?
[2021-12-18] MEDS: oxyCODONE-APAP 7.5-325MG 1 EACH TAB PO PRN (20:14)
[2021-12-18] MEDS: risperiDONE 2 MG TAB PO SCH (20:15)
[2021-12-18] MEDS: METOPROLOL TARTRATE 25 MG TAB PO SCH (20:16)
[2021-12-18] MEDS: traZODone HCL 100 MG TAB PO SCH (20:16)
[2021-12-19] MEDS: HEPARIN SODIUM,PORCINE/PF 5,000 UNIT/0.5 ML SYRINGE SQ SCH ×4 (00:30→23:52)
[2021-12-19] MEDS: SODIUM CHLORIDE 0.9% 1,000 ML IV SCH (00:31)
[2021-12-19] MEDS: hydrALAZINE HCL 20 MG/ML 1 ML VIAL IVP PRN ×2 (01:31→15:21)
[2021-12-19] MEDS: LEVOTHYROXINE 100 MCG TAB PO SCH (05:44)
[2021-12-19] MEDS: amLODIPine 10 MG TAB PO SCH (08:02)
[2021-12-19] MEDS: CHOLECALCIFEROL 25 MCG (1000 IU) TABLET PO SCH (08:02)
[2021-12-19] MEDS: CALCIUM CARB-VIT D 500 MG-5 MCG TAB PO SCH (08:02)
[2021-12-19] MEDS: SERTRALINE 100 MG TAB PO SCH (08:02)
[2021-12-19] MEDS: PANTOPRAZOLE 40 MG TABLET PO SCH (08:03)
[2021-12-19] MEDS: METOPROLOL TARTRATE 50 MG TAB PO SCH (08:03)
[2021-12-19] MEDS: RALOXIFENE 60 MG TAB PO SCH (08:03)
[2021-12-19] MEDS: busPIRone HCl 10 MG TAB PO SCH ×2 (08:03→21:45)
[2021-12-19] MEDS: ASPIRIN 81 MG PO SCH (08:03)
[2021-12-19] MEDS: ASCORBIC ACID 500 MG TAB PO SCH (08:03)
[2021-12-19] MEDS: lisinopriL 20 MG TAB PO SCH ×2 (08:03→21:45)
[2021-12-19] MEDS: ATORVASTATIN 20 MG TAB PO SCH (08:03)
[2021-12-19] MEDS: oxyCODONE-APAP 7.5-325MG 1 EACH TAB PO PRN ×3 (08:14→21:44)
[2021-12-19] MEDS ORDERED: VANCOMYCIN TROUGH DUE 1 EACH MISC MISCELLANE ONE (09:00)
[2021-12-19] MEDS: hydroCHLOROthiazide 25 MG TAB PO SCH (09:54)
[2021-12-19] MEDS: VANCOMYCIN 1,500 MG in SODIUM CHLORIDE 0.9% 250 ML IVPB SCH (10:32)
--- NOTE | 2021-12-19 10:40 | CT ---
EXAMINATION TYPE: CT chest wo con DATE OF EXAM: 12/19/2021 COMPARISON: CTA chest March 07, 2021 HISTORY: Hypoxia CT DLP: 600.1 mGycm. Automated Exposure Control for Dose Reduction was Utilized. TECHNIQUE: CT scan of the thorax is performed without IV contrast. FINDINGS: LUNGS: Background moderate underlying emphysematous change with overall mosaic attenuation suggesting mild to moderate alveolar and interstitial edema, less likely infiltrates. Tiny right pleural effusi on. No pneumothorax seen. [id number] scattered parenchymal fibrosis greatest in the periphery. No greater than 1 cm masses. No focal consolidation. No pneumothorax seen. MEDIASTINUM: Lack of IV contrast is noted to limit evaluation for mediastinal and especially hilar ad enopathy. There are no definitive new Greater than 1 cm mediastinal lymph nodes. Stable prominent ca lcified left hilar lymph nodes. Stable mild cardiomegaly. No pericardial effusion is seen. Coronary a rtery calcification in the left circumflex and right coronary artery distributions. Enlarged main pu lmonary artery of 3.1 cm consistent with underlying pulmonary artery hypertension. OTHER: Partial visualization of surgical change in the thoracic spine. Scattered calcifications throu ghout the liver and spleen consistent with product of old granulomatous disease. IMPRESSION: Moderate emphysematous and pulmonary fibrotic changes redemonstrated, some interval sligh t progression may be present from most recent CT. There is new mosaic attenuation consistent with mil [id number] edema on current study suggesting fluid overload state or CHF exacerbation on backgroun d chronic changes. Atypical infection felt less likely.
[2021-12-19 10:43] LABS: African American GFR (CKD) >90 (>60 ml/min/1.73 sqM); Anion Gap 12 mmol/L; Blood Urea Nitrogen 11 mg/dL (7-17); Calcium 9.7 mg/dL (8.4-10.2); Carbon Dioxide 23 mmol/L (22-30); Chloride 107 mmol/L (98-107); Glucose 131 mg/dL (74-99); Non-African American GFR(CKD) 89 (>60 ml/min/1.73 sqM); Potassium 3.9 mmol/L (3.5-5.1); Sodium 142 mmol/L (137-145)
--- NOTE | 2021-12-19 10:50 | PN ---
PROGRESS NOTE 71-year-old white female came in with syncope and had multiple tests done. She had a recent neck CTA done, which was read as hemodynamic significant stenosis of the proximal internal carotid artery in the left and significant stenosis is 50% on the right. I cannot tell what they are saying about the left carotid artery but unclear what that blockage is. We will await for neurology's recommendation on that. She has cervical spine MRI. Shows loss of disk height, postoperative changes, multilevel foraminal encroachment, spinal stenosis greatest at C6-C7. She can have that worked up for an outpatient or get Dr. Freeman to review that report. Neck CTA would not sure how bad the blockage is yet. Wait for Neurology recommendations. Overall most of her tests are normal. She has been on 3 blood pressure pills over the last 24 hours. Cardiology is on 3 different medications. Currently, her blood pressure went back up over 204/103. She has p.r.n. medicines x2. She is 97 on 5 L. Chest x-ray shows some chronic changes, possibly do a CT scan of her chest today. See what is showing there as she is still hypoxic, on 5 L oxygen, but apparently she has bad COPD. She wears oxygen at home. She came in with syncope for which Cardiology is evaluating her as well as Neurology. Please see further orders. MMODL / IJN: [id number] /
--- NOTE | 2021-12-19 11:49 | P.PN ---
Subjective Progress Note Date: 12/19/21 Principal diagnosis: Cervical stenosis Patient seen at bedside this morning after working with physical therapy. Patient says she did do well with physical therapy this morning and says she is not feeling lightheaded or dizzy when she got up. Patient currently has a nasal cannula on. Patient says she is still having some weakness in her shoulders which is been ongoing issue over the past 2 years. Patient still has pain in the left side of her neck. Patient denies any saddle anesthesia. Patient denies chest pain, increasing shortness of breath, fever, nausea, vomiting, change in vision, loss of bowel/bladder control Objective - Vital Signs Vital signs: Vital Signs Temp 98.3 F 12/19/21 08:00 Pulse 88 12/19/21 10:48 Resp 17 12/19/21 08:00 BP 178/94 12/19/21 10:48 Pulse Ox 97 12/19/21 08:00 Intake & Output 12/18/21 12/19/21 12/19/21 18:59 06:59 18:59 Intake Total 240 Balance 240 Intake: Oral 240 Other: Voiding Method Toilet # Voids 1 1 - Exam Inspection: Multiple scars throughout the spine and both cervical and lumbar region. Open wound present on the right upper extremity which is not actively draining. Deformity present right upper arm due to chronic fracture. Negative for any evidence of open fractures, significant ecchymosis, erythema, nodules. Palpation: Patient has moderate tenderness to palpation along the posterior cervical spine on the left side. Patient does have some mild TTP along midline thoracic and lumbar spines. TTP along right distal arm near open wound Sensation: Sensation is equal, symmetric, bilaterally intact throughout lower extremities. Range of motion: Patient has full range of motion bilaterally in lower extremities in knee flexion/extension and plantar flexion/dorsiflexion. Patient has limited ROM in hip flexion bilaterally. Right upper extremity limited range of motion due to deformity. Left lower extremity full range of motion in elbow wrist and shoulder Motor: 4+/5 in resisted plantar flexion/dorsiflexion and knee flexion/extension bilaterally. 3+/5 in resisted hip flexion bilaterally. Fish Checker strength, resisted wrist flexion 2+/5 in RUE. 4+5 in other major motor groups of RUE and LUE. Neurovascular: Cap refill < 3 sec in digits of upper extremities. Radial pulses palpable, 1+. Special tests: Negative Homans bilaterally. Negative clonus bilaterally. Negative Katelynn's bilaterally. - Labs CBC & Chem 7: 12/18/21 06:24 12/19/21 09:27 Labs: Abnormal Lab Results - Last 24 Hours (Table) 12/19/21 Range/Units 09:27 Glucose 131 H (74-99) mg/dL Microbiology - Last 24 Hours (Table) 12/16/21 18:08 Anaerobic Culture - Preliminary Wrist - Right 12/16/21 18:08 Gram Stain - Final Wrist - Right Wound Culture - Final Klebsiella pneumoniae Staphylococcus aureus 12/16/21 15:30 Blood Culture - Preliminary Blood No Growth after 48 hours 12/16/21 15:15 Blood Culture - Preliminary Blood No Growth after 48 hours Assessment and Plan Assessment: 1. Cervical stenosis 2. History of multiple spine surgeries 3. Chronic right upper extremity deformity; chronic right upper extremity wound 4. Multiple medical comorbidities Plan: 1. Cervical stenosis; history of multiple spine surgeries - MRI C-spine has been completed. Results show stenosis throughout the cervical spine with evidence of post-op changes s/p previous C3-C6 fusion. At this time we do not recommend any urgent/emergent orthopedic surgical intervention. We do recommend patient to follow up in outpatient setting to discuss further interventions. We'll continue follow patient while in hospital 2. Appreciate neuro management; appreciate medical management; appreciate vascular management 3. Pain management - oxycodone 4. DVT prophylaxis - heparin; aspirin 5. Protonix 6. PT/OT - weightbearing as tolerated with walker for assistance 7. Encourage incentive spirometer use 8. Appreciate consult Time with Patient: Less than 30
--- NOTE | 2021-12-19 12:04 | P.PN ---
Subjective Progress Note Date: 12/19/21 The patient stated she had chronic left neck pain that radiates to left occipital region. She states she had 3 surgeries in the past on her neck and 2 surgeries on her lower back. Objective - Vital Signs Vital signs: Vital Signs Temp 98.3 F 12/19/21 08:00 Pulse 88 12/19/21 10:48 Resp 17 12/19/21 08:00 BP 178/94 12/19/21 10:48 Pulse Ox 97 12/19/21 08:00 Intake & Output 12/18/21 12/19/21 12/19/21 18:59 06:59 18:59 Intake Total 240 Balance 240 Intake: Oral 240 Other: Voiding Method Toilet # Voids 1 1 - Exam GENERAL: The patient is lying in bed and is not in acute distress. NEUROLOGICAL: Higher mental function: The patient is awake, alert, oriented to self, place and time. Patient is following commands. No aphasia and no neglect. Cranial nerves: The pupils are round, equal and reactive to light. Visual fiel ds are full to confrontation throughout. Extraocular movement is intact no nystagmus is noted. Facial sensation is normal to touch throughout. The facial strength is normal throughout. Hearing is mildly decreased bilaterally to hand rub. Tongue is midline and moved [id number] without any difficulty. No dysarthria is noted. Shoulder shrug is normal bilaterally. Motor: Gait is deferred. The strength is right upper extremity is malformed from old fracture but is able to lift above gravity. Otherwise rest of strength is 5/5 throughout. Cerebellum: Normal finger to nose bilaterally. Sensation: Sensation is normal to touch throughout. Reflexes (right/left):1+ throughout. Plantars are mute bilaterally. WORK-UP: * Calcium is 8.9, magnesium is 1.7. * TSH is 3.220. * Stone virus PCR was not detected. * Urine analysis seems negative for you know tract infection. * CT of the head is reported as no acute intracranial hemorrhage or midline shift. There is mild to moderate diffuse age-related cerebral atrophy and chronic small vessel ischemic changes redemonstrated. No significant change from prior study. Left-sided the mastoid opacification raises concern for acute mastoiditis. I reviewed the CT of the head and there is no acute subacute ischemic stroke that's appreciable and there is no other prodromal hemorrhage. * MRI the brain is reported as no acute intracranial process. Chronic appearing periventricular white matter ischemic change and mild age-related atrophy. Clinical correlation recommended for acute mastoiditis. Narrowing of the proximal cervical spine is C2-C3 level. Consider follow-up of MRI of cervical spine to evaluate for spinal canal stenosis and cord impingement. * MRI cervical spine was reported as postoperative changes, multilevel formula Manzo. Spinal stenosis is greatest at C6-C7 generative disc disease. * Carotid duplex was reported as atheromatous plaquing present at the bilateral carotid bifurcation contributing to moderate internal carotid artery stenosis between 50-69%. There is greater on the left than the right based on the velocities. * CT angiography of the neck was reported as hemodynamic significant stenosis of the proximal internal carotid artery and the left as described. In the body of the report is reported as left ICA corresponding to approximately 50% diameter to repeat reduction while right ICA estimated less than 50%. * Routine EEG on 12/18/2021 is normal. There is no focal slowing, epileptiform discharges or seizure on EEG * 2-D echo was reported as mild concentric left ventricular hypertrophy. Ejection fraction of 55-60%. Negative bubble study. No shunt noted that. Normal left atrial size by volume. * MM bone scan was reported as difficult to exclude osteomyelitis, there are limitations to the exam. - Labs CBC & Chem 7: 12/18/21 06:24 12/19/21 09:27 Labs: Abnormal Lab Results - Last 24 Hours (Table) 12/19/21 Range/Units 09:27 Glucose 131 H (74-99) mg/dL Microbiology - Last 24 Hours (Table) 12/16/21 18:08 Anaerobic Culture - Preliminary Wrist - Right 12/16/21 18:08 Gram Stain - Final Wrist - Right Wound Culture - Final Klebsiella pneumoniae Staphylococcus aureus 12/16/21 15:30 Blood Culture - Preliminary Blood No Growth after 48 hours 12/16/21 15:15 Blood Culture - Preliminary Blood No Growth after 48 hours Assessment and Plan Assessment: * Near-Syncope episode. Unsure exact cause. Unsure if due to opoid use vs uncontrolled hypertension. * Hypertensive urgency * Asymptomatic Bilateral mild to moderate internal carotid artery stenosis between 50-69% per carotid duplex but per CTA 50% on left and <50% on right. * Neck pain and had 3 surgeries to her neck * Cervical spondylosis most significant over C6-C7 * History of reported ?TIA (per daughter that she notified cardiology team) but patient denies of this history of TIA and upon speaking to other family history no diagnosis of TIA and no focality with episode but had near syncope episode possibly in past. * Chronic opioid use * History of RFP WRITER on home oxygen * Chronic back pain s/p multiple surgeries (two surgeries) * Fibromyalgia * History of hyperlipidemia Plan: * Routine EEG is normal. MRI Brain is normal. * Vascular surgery team is consulted for asymptomatic carotid stenosis. No intervention from their perspective. * Currently patient is on ASA 81mg daily and Lipitor 20mg daily. * Patient has Cervical spondylosis significant over C6-7 on MRI C-spine. Orthopedic team is on board. Patient has prior history of 3 surgeries to her neck. * Orthostatic vitals as ordered and is pending to be done. * Cardiology is on board. * Every 4 hours neuro checks * Patient is on cardiac monitoring * ID team is consulted by the primary team for cellulitis of the arm. * Cardiology team is on board * Defer the rest of the medical measure the primary team. * Upon discharge, the patient needs to follow-up with a neurologist within 2 weeks as outpatient. The plan is discussed with the patient and her nurse. I also updated the patient's daughter via phone. [employer], No further neurological work-up. Rito White M.D. Neuro-Hospitalist. Time with Patient: Less than 30
--- NOTE | 2021-12-19 12:20 | P.PN ---
Subjective Progress Note Date: 12/19/21 HISTORY OF PRESENT ILLNESS: This is a 71-year-old female with a past medical history significant for hypertension, hyperlipidemia, chronic back pain with chronic narcotic use, hypothyroidism, COPD, fibromyalgia, and osteoarthritis. The patient also has a chronic wound to her right upper extremity. She has a deformity of her right upper arm which is chronic secondary to an old fracture. Patient does not follow with a custom protection officer. We have been asked to see the patient in [facility] for syncope. Patient examined at the bedside. Patient states she does not really remember what happened yesterday. Majority of HPI was taken from patient's daughter who I spoke with this morning on the phone. She states that yesterday when she went over to her mom's house she was sitting in the chair. She states that she slumped over multiple times and would "go out". She states she would have to call her name multiple times for her to wake up. She states when she woke up she was confused. She called EMS to bring her to the hospital. The daughter states that she thought maybe the patient was hypoxic but when EMS arrived her oxygen levels were within normal limits. The patient and her daughter deny any changes to her pain medication. Patient states that she saw her pain care physician last week but her regimen was not changed. The patient's daughter states she has a history of TIAs and she is concerned that there may be some neurological involvement. The patient's blood pressure was found to be significantly elevated with a systolic greater than 200. The patient does not take any antihypertensive medications at home. The patient claims she takes her blood pressure at home and it is usually around a systolic of 120. The patient's daughter does report that she was on 3 or 4 and hypertensive medications last year when she was hospitalized but since then has been taken off of them. EKG reveals sinus mechanism with nonspecific ST-T wave changes Chest xray background chronic parenchymal changes redemonstrated. Mild cardio megaly with new interstitial edema difficult to exclude on background chronic changes. Laboratory data: WBC 5.2. Hemoglobin 11.5. Platelet count 112. Sodium 141. Potassium 4.3. BUN 17. Creatinine 0.81. Lactic acid 1.2. Troponin negative 3. Current home cardiac medications include Lipitor 10 mg daily Most recent echocardiogram obtained in February 2021 revealed ejection fraction 55- 60%, mild aortic regurgitation, trace to mild mitral regurgitation, and mild tricuspid regurgitation. 12/18/2021 Patient examined this morning at the bedside. Patient denies chest pain or pressure. Denies shortness of breath. Denies any further syncopal episodes. Denies dizziness or lightheadedness. Patient's blood pressure remains elevated. Echocardiogram completed revealing ejection fraction 55-60%, trace to mild aortic regurgitation, mild mitral regurgitation, mild tricuspid regurgitation, and mild pulmonary hypertension. Carotid Doppler completed revealing bilateral carotid stenosis of moderate amount 50-69%. 12/19/2021 Patient examined this morning. She denies chest pain or pressure. Denies SOB. Blood pressure remains elevated this morning at 204/103. Repeat after medications is 178/94. PHYSICAL EXAM: VITAL SIGNS: Reviewed. GENERAL: Well-developed in no acute distress. HEENT: Head is normocephalic. Pupils are equal, round. Sclerae anicteric. Mucous membranes of the mouth are moist. Neck supple. No JVD or thyromegaly LUNGS: Respirations even and unlabored. Lungs with decreased air exchange. HEART: Regular rate and rhythm. S1 and S2 heard. ABDOMEN: Soft. Nondistended. Nontender. EXTREMITIES: Chronic deformity to right upper extremity with wound present. Normal range of motion. No clubbing or cyanosis. Peripheral pulses intact. No lower extremity edema NEUROLOGIC: Awake and alert. Oriented x 3. ASSESSMENT: Pre-syncope, rule out cardiac versus neurological etiology, can not exclude opioid related Hypertensive urgency Hyperlipidemia History of hypertension per patient, not on antihypertensive medications on an outpatient basis COPD Chronic hypoxic respiratory failure on home oxygen Chronic back pain Chronic opioid use Fibromyalgia History of TIA PLAN: Continue to monitor blood pressure Continue current cardiac medications Add hydrochlorothiazide 25 mg daily Patient will be discharged home with a 2 week event monitor at the time of discharge Further recommendations pending course Nurse practitioner note has been reviewed by physician. Signing provider agrees with the documented findings, assessment, and plan of care. Objective - Vital Signs Vital signs: Vital Signs Temp 98.3 F 12/19/21 08:00 Pulse 88 12/19/21 10:48 Resp 17 12/19/21 08:00 BP 178/94 12/19/21 10:48 Pulse Ox 97 12/19/21 08:00 Intake & Output 12/18/21 12/19/21 12/19/21 18:59 06:59 18:59 Intake Total 240 Balance 240 Intake: Oral 240 Other: Voiding Method Toilet # Voids 1 1 - Labs CBC & Chem 7: 12/18/21 06:24 12/19/21 09:27 Labs: Abnormal Lab Results - Last 24 Hours (Table) 12/19/21 Range/Units 09:27 Glucose 131 H (74-99) mg/dL Microbiology - Last 24 Hours (Table) 12/16/21 18:08 Anaerobic Culture - Preliminary Wrist - Right 12/16/21 18:08 Gram Stain - Final Wrist - Right Wound Culture - Final Klebsiella pneumoniae Staphylococcus aureus 12/16/21 15:30 Blood Culture - Preliminary Blood No Growth after 48 hours 12/16/21 15:15 Blood Culture - Preliminary Blood No Growth after 48 hours
--- NOTE | 2021-12-19 15:22 | P.PN ---
Subjective Progress Note Date: 12/18/21 Principal diagnosis: Chronic right upper extremity wound and deformity question of osteomyelitis Patient is a 71 female with a past medical history significant for chronic deformity to the right upper extremity with a fracture surgeries in the past and did have a chronic nonhealing wound on the dorsum aspect of the right wrist area. On today's evaluation that is 12/18/2021, the patient denies having any fever or any chills, the patient denies any worsening pain to right forearm/wrist area wound minimal drainage on the dressing no significant redness denies any chest pain no worsening shortness of breath or cough and no diarrhea Objective - Vital Signs Vital signs: Vital Signs Temp 98.4 F 12/18/21 07:00 Pulse 89 12/18/21 07:00 Resp 20 12/18/21 07:00 BP 195/102 12/18/21 07:00 Pulse Ox 98 12/18/21 07:00 Intake & Output 12/17/21 12/18/21 12/18/21 18:59 06:59 18:59 Intake Total 236 Balance 236 Intake: Oral 236 Other: Voiding Method Toilet Toilet # Voids 2 2 # Bowel Movements 1 - Exam GENERAL DESCRIPTION elderly female lying in bed, no distress. No tachypnea or accessory muscle of respiration use. LUNGS: Unlabored breathing. Decreased intensity of breath sounds. No wheeze or crackle. HEART: S1, S2, regular rate and rhythm. No loud murmur ABDOMEN: Soft, no tenderness , guarding or rigidity, no organomegaly EXTREMITIES: Chronic deformity of the right wrist area with a nonhealing wound no significant slough tissue surrounding redness or drainage. - Labs CBC & Chem 7: 12/18/21 06:24 12/19/21 09:27 Labs: Abnormal Lab Results - Last 24 Hours (Table) 12/18/21 Range/Units 06:24 RBC 3.70 L (4.10-5.20) X 10*6/uL Hgb 10.6 L (12.0-15.0) g/dL Hct 34.8 L (37.2-46.3) % MCHC 30.5 L (32.0-37.0) g/dL Plt Count 121 L (140-440) X 10*3/uL Lymphocytes # 0.74 L (0.90-5.00) X 10*3/uL Microbiology - Last 24 Hours (Table) 12/16/21 18:08 Gram Stain - Preliminary Wrist - Right Wound Culture - Preliminary Gram Neg Bacilli Presumptive Staph aureus 12/16/21 15:30 Blood Culture - Preliminary Blood No Growth after 24 hours 12/16/21 15:15 Blood Culture - Preliminary Blood No Growth after 24 hours Assessment and Plan Assessment: Patient with a chronic nonhealing wound on the dorsum aspect of the wrist/forearm area in this patient with a previous history of fracture and nonhealing, with concern for possible underlying osteomyelitis wound culture showing staph with sensitivities pending patient to continue with vancomycin adjust antibiotic further on the basis of culture report Time with Patient: Less than 30
--- NOTE | 2021-12-19 18:46 | P.PN ---
Subjective Progress Note Date: 12/19/21 patient seen and examined. No complaints. No lesions are no changes in her concerns. No further weakness. Objective - Vital Signs Vital signs: Vital Signs Temp 97.7 F 12/19/21 14:00 Pulse 96 12/19/21 16:35 Resp 18 12/19/21 14:00 BP 157/76 12/19/21 16:35 Pulse Ox 99 12/19/21 14:00 Intake & Output 12/18/21 12/19/21 12/19/21 18:59 06:59 18:59 Intake Total 240 Balance 240 Intake: Oral 240 Other: Voiding Method Toilet # Voids 1 1 1 - Exam General appearance: The patient is alert, oriented, appears in no acute distress. HET: Head is normocephalic and atraumatic. Pupils are equal and reactive. Neck: Supple without lymphadenopathy. Trachea midline. Heart: S1 S2. Regular rate and rhythm. Lungs: No crackles or wheezes are heard. Abdomen: Soft, nontender, nondistended. Extremities: Right upper extremity deformity, chronic wound to the dorsal aspect of her right wrist. Neurological: No focal deficits. Alert and oriented 3. This patient has facial symmetry, speech is fluent, patient answers questions appropriately and follows commands. - Labs CBC & Chem 7: 12/18/21 06:24 12/19/21 09:27 Labs: Abnormal Lab Results - Last 24 Hours (Table) 12/19/21 Range/Units 09:27 Glucose 131 H (74-99) mg/dL Microbiology - Last 24 Hours (Table) 12/16/21 15:30 Blood Culture - Preliminary Blood No Growth after 72 hours 12/16/21 15:15 Blood Culture - Preliminary Blood No Growth after 72 hours 12/16/21 18:08 Anaerobic Culture - Preliminary Wrist - Right 12/16/21 18:08 Gram Stain - Final Wrist - Right Wound Culture - Final Klebsiella pneumoniae Staphylococcus aureus Assessment and Plan Assessment: asymptomatic left internal carotid artery stenosis, approximately 50% Plan: no plan for vascular workup or further interventions at this point. discussed with the patient the plan for outpatient followup and surveillance. continue lifestyle modifications as discussed. All questions were answered. She seemed to understand.
[2021-12-19] MEDS: METOPROLOL TARTRATE 25 MG TAB PO SCH (21:45)
[2021-12-19] MEDS: risperiDONE 2 MG TAB PO SCH (21:46)
[2021-12-19] MEDS: traZODone HCL 100 MG TAB PO SCH (21:46)
[2021-12-20] MEDS: hydrALAZINE HCL 20 MG/ML 1 ML VIAL IVP PRN (03:22)
[2021-12-20] MEDS: LEVOTHYROXINE 100 MCG TAB PO SCH (06:05)
[2021-12-20] MEDS: HEPARIN SODIUM,PORCINE/PF 5,000 UNIT/0.5 ML SYRINGE SQ SCH ×3 (08:31→19:28)
[2021-12-20] MEDS: PANTOPRAZOLE 40 MG TABLET PO SCH (08:32)
[2021-12-20] MEDS: METOPROLOL TARTRATE 50 MG TAB PO SCH (08:32)
[2021-12-20] MEDS: amLODIPine 10 MG TAB PO SCH (08:32)
[2021-12-20] MEDS: busPIRone HCl 10 MG TAB PO SCH ×2 (08:32→19:27)
[2021-12-20] MEDS: lisinopriL 20 MG TAB PO SCH ×2 (08:32→19:27)
[2021-12-20] MEDS: hydroCHLOROthiazide 25 MG TAB PO SCH (08:32)
[2021-12-20] MEDS: oxyCODONE-APAP 7.5-325MG 1 EACH TAB PO PRN ×2 (08:32→16:18)
[2021-12-20] MEDS: SERTRALINE 100 MG TAB PO SCH (08:32)
[2021-12-20] MEDS: ASCORBIC ACID 500 MG TAB PO SCH (08:33)
[2021-12-20] MEDS: CALCIUM CARB-VIT D 500 MG-5 MCG TAB PO SCH (08:33)
[2021-12-20] MEDS: ATORVASTATIN 20 MG TAB PO SCH (08:33)
[2021-12-20] MEDS: RALOXIFENE 60 MG TAB PO SCH (08:33)
[2021-12-20] MEDS: ASPIRIN 81 MG PO SCH (08:33)
[2021-12-20] MEDS: CHOLECALCIFEROL 25 MCG (1000 IU) TABLET PO SCH (08:33)
--- NOTE | 2021-12-20 10:42 | P.PN ---
Subjective Progress Note Date: 12/20/21 Principal diagnosis: Cervical stenosis Patient seen this morning sitting up at bedside eating breakfast. Patient currently has a nasal cannula on. Patient says she is still having some weakness in her shoulders which is been ongoing issue over the past 2 years. Patient still has pain in the left side of her neck. Patient denies any saddle anesthesia. Patient denies chest pain, increasing shortness of breath, fever, nausea, vomiting, change in vision, loss of bowel/bladder control Objective - Vital Signs Vital signs: Vital Signs Temp 97.4 F L 12/20/21 08:00 Pulse 88 12/20/21 10:10 Resp 18 12/20/21 08:00 BP 162/80 12/20/21 10:10 Pulse Ox 99 12/20/21 10:10 Intake & Output 12/19/21 12/20/21 12/20/21 18:59 06:59 18:59 Other: Voiding Method Toilet # Voids 1 2 - Exam Inspection: Multiple scars throughout the spine and both cervical and lumbar region. Open wound present on the right upper extremity which is not actively draining. Deformity present right upper arm due to chronic fracture. Negative for any evidence of open fractures, significant ecchymosis, erythema, nodules. Palpation: Patient has moderate tenderness to palpation along the posterior cervical spine on the left side. Patient does have some mild TTP along midline thoracic and lumbar spines. TTP along right distal arm near open wound Sensation: Sensation is equal, symmetric, bilaterally intact throughout lower extremities. Range of motion: Patient has full range of motion bilaterally in lower extremities in knee flexion/extension and plantar flexion/dorsiflexion. Patient has limited ROM in hip flexion bilaterally. Right upper extremity limited range of motion due to deformity. Left lower extremity full range of motion in elbow wrist and shoulder Motor: 4+/5 in resisted plantar flexion/dorsiflexion and knee flexion/extension bilaterally. 3+/5 in resisted hip flexion bilaterally. Measurement Specialist strength, resisted wrist flexion 2+/5 in RUE. 4+5 in other major motor groups of RUE and LUE. Neurovascular: Cap refill < 3 sec in digits of upper extremities. Radial pulses palpable, 1+. Special tests: Negative Homans bilaterally. Negative clonus bilaterally. Negative Katelynn's bilaterally. - Labs CBC & Chem 7: 12/18/21 06:24 12/19/21 09:27 Labs: Abnormal Lab Results - Last 24 Hours (Table) 12/19/21 Range/Units 09:27 Glucose 131 H (74-99) mg/dL Microbiology - Last 24 Hours (Table) 12/16/21 15:30 Blood Culture - Preliminary Blood No Growth after 72 hours 12/16/21 15:15 Blood Culture - Preliminary Blood No Growth after 72 hours Assessment and Plan Assessment: 1. Cervical stenosis 2. History of multiple spine surgeries 3. Chronic right upper extremity deformity; chronic right upper extremity wound 4. Multiple medical comorbidities Plan: 1. Cervical stenosis; history of multiple spine surgeries - MRI C-spine has been completed. Results show stenosis throughout the cervical spine with evidence of post-op changes s/p previous C3-C6 fusion. At this time we do not recommend any urgent/emergent orthopedic surgical intervention. We do recommend patient to follow up in outpatient setting to discuss further interventions. Patient is orthopedically stable for discharge from the hospital. At this time orthopedics is signing off. Please do not hesitate to contact us for any further questions. 2. Appreciate neuro management; appreciate medical management; appreciate vascular management 3. Pain management - oxycodone 4. DVT prophylaxis - heparin; aspirin 5. Protonix 6. PT/OT - weightbearing as tolerated with walker for assistance 7. Encourage incentive spirometer use 8. Appreciate consult Time with Patient: Less than 30
--- NOTE | 2021-12-20 11:07 | P.PN ---
Subjective Progress Note Date: 12/20/21 The patient is seen at bedside and states she is doing well. Denies of any further passing out or near passing out. Objective - Vital Signs Vital signs: Vital Signs Temp 97.4 F L 12/20/21 08:00 Pulse 88 12/20/21 10:10 Resp 18 12/20/21 08:00 BP 162/80 12/20/21 10:10 Pulse Ox 99 12/20/21 10:10 Intake & Output 12/19/21 12/20/21 12/20/21 18:59 06:59 18:59 Other: Voiding Method Toilet # Voids 1 2 - Exam GENERAL: The patient is lying in bed and is not in acute distress. NEUROLOGICAL: Higher mental function: The patient is awake, alert, oriented to self, place and time. Patient is following commands. No aphasia and no neglect. Cranial nerves: The pupils are round, equal and reactive to light. Visual hewitt are full to confrontation throughout. Extraocular movement is intact no nystagmus is noted. Facial sensation is normal to touch throughout. The facial strength is normal throughout. Hearing is mildly decreased bilaterally to hand rub. Tongue is midline and moved [id number] without any difficulty. No dysarthria is noted. Shoulder shrug is normal bilaterally. Motor: Gait is deferred. The strength is right upper extremity is malformed from old fracture but is able to lift above gravity. Otherwise rest of strength is 5/5 throughout. Cerebellum: Normal finger to nose bilaterally. Sensation: Sensation is normal to touch throughout. Reflexes (right/left):1+ throughout. Plantars are mute bilaterally. WORK-UP: * Orthostatic vitals: Supine his blood pressure of 157/76 with a heart rate of 96, sitting is 184/76 with a heart rate of 97 and standing is 190/85 with a heart rate of 101. Orthostatics is negative. * Calcium is 8.9, magnesium is 1.7. * TSH is 3.220. * Stone virus PCR was not detected. * Urine analysis seems negative for you know tract infection. * CT of the head is reported as no acute intracranial hemorrhage or midline shift. There is mild to moderate diffuse age-related cerebral atrophy and chronic small vessel ischemic changes redemonstrated. No significant change from prior study. Left-sided the mastoid opacification raises concern for acute mastoiditis. I reviewed the CT of the head and there is no acute subacute ischemic stroke that's appreciable and there is no other prodromal hemorrhage. * MRI the brain is reported as no acute intracranial process. Chronic appearing periventricular white matter ischemic change and mild age-related atrophy. Clinical correlation recommended for acute mastoiditis. Narrowing of the proximal cervical spine is C2-C3 level. Consider follow-up of MRI of cervical spine to evaluate for spinal canal stenosis and cord impingement. * MRI cervical spine was reported as postoperative changes, multilevel formula Manzo. Spinal stenosis is greatest at C6-C7 generative disc disease. * Carotid duplex was reported as atheromatous plaquing present at the bilateral carotid bifurcation contributing to moderate internal carotid artery stenosis between 50-69%. There is greater on the left than the right based on the velocities. * CT angiography of the neck was reported as hemodynamic significant stenosis of the proximal internal carotid artery and the left as described. In the body of the report is reported as left ICA corresponding to approximately 50% diameter to repeat reduction while right ICA estimated less than 50%. * Routine EEG on 12/18/2021 is normal. There is no focal slowing, epileptiform discharges or seizure on EEG * 2-D echo was reported as mild concentric left ventricular hypertrophy. Ejection fraction of 55-60%. Negative bubble study. No shunt noted that. Normal left atrial size by volume. * MM bone scan was reported as difficult to exclude osteomyelitis, there are limitations to the exam. - Labs CBC & Chem 7: 12/18/21 06:24 12/19/21 09:27 Labs: Microbiology - Last 24 Hours (Table) 12/16/21 15:30 Blood Culture - Preliminary Blood No Growth after 72 hours 12/16/21 15:15 Blood Culture - Preliminary Blood No Growth after 72 hours Assessment and Plan Assessment: * Near-Syncope episode. Unsure exact cause. Unsure if due to opoid use vs uncontrolled hypertension. * Hypertensive urgency * Asymptomatic Bilateral mild to moderate internal carotid artery stenosis between 50-69% per carotid duplex but per CTA 50% on left and <50% on right. * Neck pain and had 3 surgeries to her neck * Cervical spondylosis most significant over C6-C7 * History of reported ?TIA (per daughter that she notified cardiology team) but patient denies of this history of TIA and upon speaking to other family history no diagnosis of TIA and no focality with episode but had near syncope episode possibly in past. 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 MRI Brain is normal. * Vascular surgery team is consulted for asymptomatic carotid stenosis. No intervention from their perspective. Follow-up as outpatient. * Currently patient is on ASA 81mg daily and Lipitor 20mg daily. * Patient has Cervical spondylosis significant over C6-7 on MRI C-spine. Orthopedic team is on board. Patient has prior history of 3 surgeries to her neck. Per orthopedic team they felt the patient has stenosis throughout the cervical spine with evidence of postop changes over the previous C3 to C6 fusion. They recommend outpatient setting to discuss further intervention. * Cardiology is on board. * Every 4 hours neuro checks * Patient is on cardiac monitoring * ID team is consulted by the primary team for cellulitis of the arm. Per bone scan of right arm was reported as difficult to exclude osteomylitis. * Cardiology team is on board * Defer the rest of the medical measure the primary team. * Upon discharge, the patient needs to follow-up with a neurologist within 2 weeks as outpatient. The plan is discussed with the patient and her nurse. The plan is discussed with her daughter (Denisha) Otherwise, No further neurological work-up. Neurology will sign off. Please reconsult with neurology if needed. Rito White M.D. Neuro-Hospitalist. Time with Patient: Less than 30
--- NOTE | 2021-12-20 13:56 | P.PN ---
Subjective Progress Note Date: 12/20/21 HISTORY OF PRESENT ILLNESS: This is a 71-year-old female with a past medical history significant for hypertension, hyperlipidemia, chronic back pain with chronic narcotic use, hypothyroidism, COPD, fibromyalgia, and osteoarthritis. The patient also has a chronic wound to her right upper extremity. She has a deformity of her right upper arm which is chronic secondary to an old fracture. Patient does not follow with a book cutter. We have been asked to see the patient in [facility] for syncope. Patient examined at the bedside. Patient states she does not really remember what happened yesterday. Majority of HPI was taken from patient's daughter who I spoke with this morning on the phone. She states that yesterday when she went over to her mom's house she was sitting in the chair. She states that she slumped over multiple times and would "go out". She states she would have to call her name multiple times for her to wake up. She states when she woke up she was confused. She called EMS to bring her to the hospital. The daughter states that she thought maybe the patient was hypoxic but when EMS arrived her oxygen levels were within normal limits. The patient and her daughter deny any changes to her pain medication. Patient states that she saw her pain care physician last week but her regimen was not changed. The patient's daughter states she has a history of TIAs and she is concerned that there may be some neurological involvement. The patient's blood pressure was found to be significantly elevated with a systolic greater than 200. The patient does not take any antihypertensive medications at home. The patient claims she takes her blood pressure at home and it is usually around a systolic of 120. The patient's daughter does report that she was on 3 or 4 and hypertensive medications last year when she was hospitalized but since then has been taken off of them. EKG reveals sinus mechanism with nonspecific ST-T wave changes Chest xray background chronic parenchymal changes redemonstrated. Mild cardio megaly with new interstitial edema difficult to exclude on background chronic changes. Laboratory data: WBC 5.2. Hemoglobin 11.5. Platelet count 112. Sodium 141. Potassium 4.3. BUN 17. Creatinine 0.81. Lactic acid 1.2. Troponin negative 3. Current home cardiac medications include Lipitor 10 mg daily Most recent echocardiogram obtained in February 2021 revealed ejection fraction 55- 60%, mild aortic regurgitation, trace to mild mitral regurgitation, and mild tricuspid regurgitation. 12/18/2021 Patient examined this morning at the bedside. Patient denies chest pain or pressure. Denies shortness of breath. Denies any further syncopal episodes. Denies dizziness or lightheadedness. Patient's blood pressure remains elevated. Echocardiogram completed revealing ejection fraction 55-60%, trace to mild aortic regurgitation, mild mitral regurgitation, mild tricuspid regurgitation, and mild pulmonary hypertension. Carotid Doppler completed revealing bilateral carotid stenosis of moderate amount 50-69%. 12/19/2021 Patient examined this morning. She denies chest pain or pressure. Denies SOB. Blood pressure remains elevated this morning at 204/103. Repeat after medications is 178/94. 12/20/2021 Patient examined this morning at the bedside. Patient denies chest pain or pressure. She denies short of breath. BP improved with a SBP of 170. PHYSICAL EXAM: VITAL SIGNS: Reviewed. GENERAL: Well-developed in no acute distress. HEENT: Head is normocephalic. Pupils are equal, round. Sclerae anicteric. Mucous membranes of the mouth are moist. Neck supple. No JVD or thyromegaly LUNGS: Respirations even and unlabored. Lungs with decreased air exchange. HEART: Regular rate and rhythm. S1 and S2 heard. ABDOMEN: Soft. Nondistended. Nontender. EXTREMITIES: Chronic deformity to right upper extremity with wound present. Normal range of motion. No clubbing or cyanosis. Peripheral pulses intact. No lower extremity edema NEUROLOGIC: Awake and alert. Oriented x 3. ASSESSMENT: Pre-syncope, rule out cardiac versus neurological etiology, can not exclude opioid related Hypertensive urgency Hyperlipidemia History of hypertension per patient, not on antihypertensive medications on an outpatient basis COPD Chronic hypoxic respiratory failure on home oxygen Chronic back pain Chronic opioid use Fibromyalgia History of TIA PLAN: Continue current cardiac medications Patient will be discharged home with a 2 week event monitor at the time of discharge Patient stable for DC from a cardiac standpoint. We will sign off. Please rec onsult if needed. Nurse practitioner note has been reviewed by physician. Signing provider agrees with the documented findings, assessment, and plan of care. Objective - Vital Signs Vital signs: Vital Signs Temp 97.4 F L 12/20/21 08:00 Pulse 88 12/20/21 10:10 Resp 18 12/20/21 08:00 BP 162/80 12/20/21 10:10 Pulse Ox 99 12/20/21 10:10 Intake & Output 12/19/21 12/20/21 12/20/21 18:59 06:59 18:59 Other: Voiding Method Toilet # Voids 1 2 - Labs CBC & Chem 7: 12/18/21 06:24 12/19/21 09:27 Labs: Microbiology - Last 24 Hours (Table) 12/16/21 15:30 Blood Culture - Preliminary Blood No Growth after 72 hours 12/16/21 15:15 Blood Culture - Preliminary Blood No Growth after 72 hours
[2021-12-20] MEDS ORDERED: LIDOCAINE 1% INJ 10MG/ML (20 ML MDV) SQ ONE (13:59)
[2021-12-20] MEDS ORDERED: fentaNYL (PF) 50 MCG/ML 2 ML AMP IV ONE (14:10)
--- NOTE | 2021-12-20 15:50 | IR ---
EXAMINATION TYPE: IR cvc insert >=5 years DATE OF EXAM: 12/20/2021 COMPARISON: NONE CLINICAL HISTORY: Infection Needs long-term intravenous access for antibiotics. PROCEDURE: Hand hygiene obtained with soap and water and alcohol-based hand rub. After informed consent, the skin overlying the left brachial vein was localized with ultrasound and n oted to be compressible and patent. An ultrasound image was obtained and submitted on the patient's chart. The overlying skin was prepped and draped and Lidocaine was used for local anesthesia. A ski n maria de jesus was made with a scalpel. Access was gained to the vein under ultrasound guidance with a 21 ga uge needle and a 0.018 inch wire was advanced. Access site was dilated with Peel-Away sheath and cat heter tailored to the appropriate length and advanced such that the distal tip is at the cavoatrial j unction. Spot image was obtained verifying placement. Catheter was fixed to the skin and a sterile dressing was placed following hemostasis. Catheter was aspirated and flushed with saline. Patient w as discharged in stable condition without complication.Maximal barrier technique is utilized. Ultras ound image is documented on the chart. Ultrasound used with sterile technique. Fluoro time and fluoroscopic images submitted to document procedure: 108 intraoperative images, 1.3 m inutes fluoroscopy time IMPRESSION: STATUS POST ULTRASOUND AND FLUOROSCOPIC GUIDED PICC LINE PLACEMENT, READY FOR USE. THIS PROCEDURE WAS PERFORMED BY THE UNDERSIGNED.
--- NOTE | 2021-12-20 18:24 | PN ---
PROGRESS NOTE This 71-year-old white female was severely bradycardic in the emergency room. She was placed on dobutamine drip to get her heart rate up, as her pulse was in the low 30s. She is feeling better on a daily basis. Temperature 97 to 98, blood pressure 130s to 170s over 75 to 90. She is on 5 L oxygen at 100%. She normally wears 5 L oxygen at home. Pulse rates in the 90s. She has been started on her Synthroid for hypothyroidism. Patient has been seen by Cardiology every day as well as Neurology. Blood pressure is severely elevated into the 200s antihypertensive medicines at home. Does not take any. Blood pressure despite 4 medicines is a little bit elevated. Systolic blood pressure this morning was 170. Vital signs stable. Cardiovascular S1, S2. Lungs clear. Extremities show right upper extremity wound at the wrist level, severe rheumatoid arthritic changes in the arms. Neurologic: Cranial nerves are intact. ASSESSMENT: 1. Presyncope. 2. Hypertensive emergency. 3. Dyslipidemia. 4. Wound infection of the right arm at the wrist. 5. Chronic back pain. 6. Chronic hypoxemic respiratory failure, on oxygen. 7. Fibromyalgia. 8. History of transient ischemic attack. 9. Hypertensive heart. 10.Cardiovascular disease. PLAN: Continue current treatments. Blood pressure control. Continue current cardiac medicines. Possibly discharge home if cleared. Cardiology has cleared her, but they want a wound consult on this patient for right wound on the wrist to have it evaluated. Please see further orders. MMODL / IJN: [id number] /
[2021-12-20] MEDS: METOPROLOL TARTRATE 25 MG TAB PO SCH (19:27)
[2021-12-20] MEDS: risperiDONE 2 MG TAB PO SCH (19:28)
[2021-12-20] MEDS: traZODone HCL 100 MG TAB PO SCH (19:28)
--- NOTE | 2021-12-20 21:05 | P.CNOR ---
History of Present Illness - [facility] Consult date: 12/20/21 History of present illness: This patient is a 71- year old female with a past medical history of hypertension, hyperlipidemia, hypothyroidism, fibromyalgia, COPD on 5 L that presented to [facility] emergency department on 12/16/21 with complaints of possible syncopal episodes. Orthopedics is consulted in regards to her right upper extremity. The patient has a chronic deformity of her right upper extremity due to an old fracture. She also has a chronic nonhealing wound to the dorsal aspect of her right wrist. She states she has not followed-up with orthopedics recently for this. She states she has tried a brace in the past for her right upper extremity, although it makes her pain worse and bothers her. She denies any drainage from the right wrist wound. She has no complaints or concerns at the time of our exam. Patient is afebrile. WBC is within normal limits. Past Medical History Past Medical History: Cancer, COPD, Fibromyalgia, Osteoarthritis (OA), Pneumonia, Rheumatoid Arthritis (RA) Additional Past Medical History / Comment(s): Pt tested covid + 03/07/21 [facility] ER. 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 L hand and ulcer on L wrist History of Any Multi-Drug Resistant Organisms: None Reported Past Surgical History: Back Surgery, Hysterectomy, Joint Replacement, Orthopedic Surgery Additional Past Surgical History / Comment(s): L partial nephrectomy, R wrist surgery for fracture, 3 L spine surgeries, 2 cervical surgeries, L hemiarthroplasty d/t fracture, colonoscopy Past Anesthesia/Blood Transfusion Reactions: No Reported Reaction Past Psychological History: Depression Smoking Status: Former smoker Past Alcohol Use History: None Reported Past Drug Use History: None Reported - Past Family History Father Family Medical History: Cancer Additional Family Medical History / Comment(s): LUNG CA Mother Family Medical History: Osteoarthritis (OA) Medications and Allergies Home Medications Medication Instructions Recorded Confirmed Type Raloxifene [Evista] 60 mg PO DAILY 02/07/15 12/16/21 History Sertraline HCl [Zoloft] 200 mg PO DAILY 02/07/15 12/16/21 History risperiDONE [RisperDAL] 2 mg PO HS 04/05/15 12/16/21 History Pantoprazole Sodium [Protonix] 40 mg PO DAILY 08/28/16 12/16/21 History Ascorbic Acid [Vitamin C] 500 mg PO DAILY 01/14/20 12/16/21 History Atorvastatin [Lipitor] 10 mg PO DAILY 01/14/20 12/16/21 History Calcium Carbonate [Calcium] 600 mg PO DAILY 01/14/20 12/16/21 History busPIRone HCl [Buspar] 10 mg PO BID 01/14/20 12/16/21 History traZODone HCL 100 mg PO HS 01/14/20 12/16/21 History Naproxen 500 mg PO BID PRN 03/07/21 12/16/21 History Cholecalciferol [Vitamin D3 (25 25 mcg PO DAILY 12/16/21 12/16/21 History Mcg = 1000 Iu)] Dicyclomine HCl 10 - 20 mg PO QID PRN 12/16/21 12/16/21 History Ergocalciferol (Vitamin D2) 1,250 mcg PO WE 12/16/21 12/16/21 History [Drisdol (50,000 Iu)] Levothyroxine Sodium [Synthroid] 100 mcg PO DAILY 12/16/21 12/16/21 History Sandia-3 Fatty Acids [Sandia-3] 1,000 mg PO DAILY 12/16/21 12/16/21 History oxyCODONE-APAP 7.5-325MG [Percocet 1 tab PO Q6H PRN 12/16/21 12/16/21 History 7.5-325 mg] Aspirin 81 mg PO DAILY #90 tab 12/20/21 Rx Metoprolol Tartrate [Lopressor] 25 mg PO HS #90 tab 12/20/21 Rx Metoprolol Tartrate [Lopressor] 50 mg PO DAILY #90 tab 12/20/21 Rx amLODIPine [Norvasc] 10 mg PO DAILY #90 tab 12/20/21 Rx hydroCHLOROthiazide [Hydrodiuril] 25 mg PO DAILY #90 tab 12/20/21 Rx lisinopriL [Zestril] 20 mg PO BID #180 tab 12/20/21 Rx Allergies Allergy/AdvReac Type Severity Reaction Status Date / Time Penicillins Allergy Dyspnea Verified 12/16/21 17:26 aspirin AdvReac Nausea & Verified 12/16/21 17:26 Vomiting Physical Examination On examination, the patient is lying in bed in no apparent distress. She is alert and oriented, she answers questions appropriately. A focused examination of the right upper extremity is performed. There is a obvious deformity of the right wrist. There is a chronic appearing small wound at the dorsal aspect of her wrist. There is no surrounding erythema. There is no fluctuance. There is no drainage. Patient is unable to actively flex or extend her wrist. She does have finger motion. The right upper extremity is warm and well perfused. Results Right forearm x-ray 12/16/21: Chronic appearing deformities of the elbow and w rist. Screw fragments present at the wrist. No acute changes noted. - Labs Labs: Microbiology - Last 24 Hours (Table) 12/16/21 15:30 Blood Culture - Preliminary Blood No Growth after 72 hours 12/16/21 15:15 Blood Culture - Preliminary Blood No Growth after 72 hours H & H 12/16/21 12/17/21 12/18/21 Range/Units 15:37 06:56 06:24 Hgb 11.4 11.5 10.6 L (11.4-16.0) gm/dL Hct 34.5 36.0 34.8 L (34.0-46.0) % Coagulation 12/16/21 Range/Units 15:37 INR 1.1 (<1.2) Result Diagrams: 12/18/21 06:24 12/19/21 09:27 Assessment and Plan Assessment: Chronic wound dorsal right wrist Chronic deformity right upper extremity due to old trauma Plan: - Patient was seen and examined bedside this afternoon with Dr. Stiles. We have no plans for surgical intervention during this hospital stay. The patient was offered a brace due to her right upper extremity deformity, although she declines as the brace makes her pain worse. - Recommend local wound care to the chronic wound of her dorsal right wrist per infectious disease. - We will sign off at this time. Patient may follow-up in our office with our hand surgeon Dr. Hernandez if needed.
--- NOTE | 2021-12-20 21:34 | P.PN ---
Subjective Progress Note Date: 12/19/21 Principal diagnosis: Chronic right upper extremity wound and deformity question of osteomyelitis Patient is a 71 female with a past medical history significant for chronic deformity to the right upper extremity with a fracture surgeries in the past and did have a chronic nonhealing wound on the dorsum aspect of the right wrist area. On today's evaluation that is 12/19/2021, The patient remains to be afebrile, the patient pain to the right forearm or wrist area is currently controlled still has significant deformity but no foul-smelling drainage no chest pain shortness of breath or cough no abdominal pain no diarrhea Objective - Vital Signs Vital signs: Vital Signs Temp 97.7 F 12/19/21 14:00 Pulse 83 12/19/21 14:00 Resp 18 12/19/21 14:00 BP 184/102 12/19/21 14:00 Pulse Ox 99 12/19/21 14:00 Intake & Output 12/18/21 12/19/21 12/19/21 18:59 06:59 18:59 Intake Total 240 Balance 240 Intake: Oral 240 Other: Voiding Method Toilet # Voids 1 1 - Exam GENERAL DESCRIPTION elderly female lying in bed, no distress. No tachypnea or accessory muscle of respiration use. LUNGS: Unlabored breathing. Decreased intensity of breath sounds. No wheeze or crackle. HEART: S1, S2, regular rate and rhythm. No loud murmur ABDOMEN: Soft, no tenderness , guarding or rigidity, no organomegaly EXTREMITIES: Chronic deformity of the right wrist area with a nonhealing wound no significant slough tissue surrounding redness or drainage. - Labs CBC & Chem 7: 12/18/21 06:24 12/19/21 09:27 Labs: Abnormal Lab Results - Last 24 Hours (Table) 12/19/21 Range/Units 09:27 Glucose 131 H (74-99) mg/dL Microbiology - Last 24 Hours (Table) 12/16/21 18:08 Anaerobic Culture - Preliminary Wrist - Right 12/16/21 18:08 Gram Stain - Final Wrist - Right Wound Culture - Final Klebsiella pneumoniae Staphylococcus aureus 12/16/21 15:30 Blood Culture - Preliminary Blood No Growth after 48 hours 12/16/21 15:15 Blood Culture - Preliminary Blood No Growth after 48 hours Assessment and Plan (1) Open wound of right wrist Current Visit: Yes Status: Acute Code(s): S61.501A - UNSPECIFIED OPEN WOUND OF RIGHT WRIST, INITIAL ENCOUNTER SNOMED Code(s): 39628778273151102 Plan: Patient with a chronic nonhealing wound on the dorsum aspect of the wrist/forearm area in this patient with a previous history of fracture and nonhealing, with concern for possible underlying osteomyelitis wound culture MSSA and Klebsiella bone scan has been suspicious for possible osteomyelitis at the wound location antibiotic has been switched over to Rocephin 2 g daily may need a PICC line and outpatient antibiotic therapy Time with Patient: Less than 30
--- NOTE | 2021-12-20 21:36 | P.PN ---
Subjective Progress Note Date: 12/20/21 Principal diagnosis: Chronic right upper extremity wound and deformity question of osteomyelitis Patient is a 71 female with a past medical history significant for chronic deformity to the right upper extremity with a fracture surgeries in the past and did have a chronic nonhealing wound on the dorsum aspect of the right wrist area. On today's evaluation that is 12/20/2021, The patient is afebrile the patient denies any worsening pain to the right forearm wound area patient denies having any chest pain shortness of breath or cough no abdominal pain no diarrhea Objective - Vital Signs Vital signs: Vital Signs Temp 97.4 F L 12/20/21 08:00 Pulse 88 12/20/21 10:10 Resp 18 12/20/21 08:00 BP 162/80 12/20/21 10:10 Pulse Ox 99 12/20/21 10:10 Intake & Output 12/19/21 12/20/21 12/20/21 18:59 06:59 18:59 Other: Voiding Method Toilet # Voids 1 2 - Exam GENERAL DESCRIPTION elderly female lying in bed, no distress. No tachypnea or accessory muscle of respiration use. LUNGS: Unlabored breathing. Decreased intensity of breath sounds. No wheeze or crackle. HEART: S1, S2, regular rate and rhythm. No loud murmur ABDOMEN: Soft, no tenderness , guarding or rigidity, no organomegaly EXTREMITIES: Chronic deformity of the right wrist area with a nonhealing wound no significant slough tissue surrounding redness or drainage. - Labs CBC & Chem 7: 12/18/21 06:24 12/19/21 09:27 Labs: Microbiology - Last 24 Hours (Table) 12/16/21 15:30 Blood Culture - Preliminary Blood No Growth after 72 hours 12/16/21 15:15 Blood Culture - Preliminary Blood No Growth after 72 hours Assessment and Plan (1) Open wound of right wrist Current Visit: Yes Status: Acute Code(s): S61.501A - UNSPECIFIED OPEN WOUND OF RIGHT WRIST, INITIAL ENCOUNTER SNOMED Code(s): 49599252713525619 Plan: Patient with a chronic nonhealing wound on the dorsum aspect of the wrist/forearm area in this patient with a previous history of fracture and nonhealing, with concern for possible underlying osteomyelitis wound culture MSSA and Klebsiella bone scan has been suspicious for possible osteomyelitis at the wound location , Ortho evaluation for possible removal of any retained hardware that may be responsible for nonhealing of the wound or persistent infection continue with Rocephin PICC line has been ordered Time with Patient: Less than 30
--- NOTE | 2021-12-20 21:52 | P.PN ---
Progress Note - Text Progress Note Date: 12/20/21 Agree with consult written by Jamie Brandon PA-C. I also saw and examined the patient. The patient's dorsal hand wound appears benign and there is no sign of severe infection requiring urgent surgical care. The hardware is completely embedded in bone and does not appear near the open wound. I have no plans for surgical intervention during this hospitalization. The patient can follow-up after discharge with Dr. Hernandez in our office.
[2021-12-21] MEDS: LEVOTHYROXINE 100 MCG TAB PO SCH (05:24)
[2021-12-21] MEDS: HEPARIN SODIUM,PORCINE/PF 5,000 UNIT/0.5 ML SYRINGE SQ SCH ×3 (08:50→19:43)
[2021-12-21] MEDS: RALOXIFENE 60 MG TAB PO SCH (08:50)
[2021-12-21] MEDS: amLODIPine 10 MG TAB PO SCH (08:51)
[2021-12-21] MEDS: METOPROLOL TARTRATE 50 MG TAB PO SCH (08:51)
[2021-12-21] MEDS: ASCORBIC ACID 500 MG TAB PO SCH (08:51)
[2021-12-21] MEDS: PANTOPRAZOLE 40 MG TABLET PO SCH (08:51)
[2021-12-21] MEDS: CALCIUM CARB-VIT D 500 MG-5 MCG TAB PO SCH (08:53)
[2021-12-21] MEDS: busPIRone HCl 10 MG TAB PO SCH ×2 (08:53→19:43)
[2021-12-21] MEDS: SERTRALINE 100 MG TAB PO SCH (08:53)
[2021-12-21] MEDS: lisinopriL 20 MG TAB PO SCH ×2 (08:54→19:43)
[2021-12-21] MEDS: ASPIRIN 81 MG PO SCH (08:54)
[2021-12-21] MEDS: ATORVASTATIN 20 MG TAB PO SCH (08:54)
[2021-12-21] MEDS: CHOLECALCIFEROL 25 MCG (1000 IU) TABLET PO SCH (08:55)
[2021-12-21] MEDS: hydroCHLOROthiazide 25 MG TAB PO SCH (08:55)
[2021-12-21] MEDS: oxyCODONE-APAP 7.5-325MG 1 EACH TAB PO PRN ×3 (09:15→22:43)
[2021-12-21] MEDS: METOPROLOL TARTRATE 25 MG TAB PO SCH (19:43)
[2021-12-21] MEDS: traZODone HCL 100 MG TAB PO SCH (19:43)
[2021-12-21] MEDS: risperiDONE 2 MG TAB PO SCH (19:43)
--- NOTE | 2021-12-21 20:51 | PN ---
PROGRESS NOTE This 71-year-old white female had a PICC line placed for long-term IV antibiotics in the prison. Waiting for prison placement. Dr. Stiles, orthopedic surgeon, saw her. Dorsal hand wound appears benign. There is no sign of severe infection requiring urgent surgery. She is going to follow up as an outpatient in his office. Waiting for prison placement for long-term antibiotics per Dr. Molina, who put a PICC line in the patient. She has cervical disc disease, for which she will need possibly surgery as an outpatient. Lungs are clear. Cardiovascular S1-S2. Hematology negative Homans. ASSESSMENT: Open wound of the right wrist. Possible osteomyelitis. Wound cultures, MSSA and Klebsiella. Bone scan has been suspicious for possible osteomyelitis to the wound, although Orthopedics does not want to take any of the hardware out at this time. She will continue with PICC line antibiotics in the prison. Follow up with orthopedic surgeon later on. She has had multiple tests, none that show any significant serious disease to keep her in the hospital. At this point waiting for prison placement for IV antibiotics. MMODL / IJN: [id number] /
--- NOTE | 2021-12-21 23:17 | P.PN ---
Subjective Progress Note Date: 12/21/21 Principal diagnosis: Chronic right upper extremity wound and deformity question of osteomyelitis Patient is a 71 female with a past medical history significant for chronic deformity to the right upper extremity with a fracture surgeries in the past and did have a chronic nonhealing wound on the dorsum aspect of the right wrist area. On today's evaluation that is 12/21/2021, The patient remains to be afebrile the patient denies any worsening pain to the right forearm wound area, patient denies having any chest pain shortness of breath or cough no abdominal pain no d iarrhea Objective - Vital Signs Vital signs: Vital Signs Temp 98.1 F 12/21/21 14:00 Pulse 98 12/21/21 19:43 Resp 20 12/21/21 19:43 BP 148/78 12/21/21 14:00 Pulse Ox 99 12/21/21 14:00 Intake & Output 12/21/21 12/21/21 12/22/21 06:59 18:59 06:59 Intake Total 354 Balance 354 Intake: Oral 354 Other: Voiding Method Toilet Toilet # Voids 2 4 1 # Bowel Movements 2 2 - Exam GENERAL DESCRIPTION elderly female lying in bed, no distress. No tachypnea or accessory muscle of respiration use. LUNGS: Unlabored breathing. Decreased intensity of breath sounds. No wheeze or crackle. HEART: S1, S2, regular rate and rhythm. No loud murmur ABDOMEN: Soft, no tenderness , guarding or rigidity, no organomegaly EXTREMITIES: Chronic deformity of the right wrist area with a nonhealing wound no significant slough tissue surrounding redness or drainage. - Labs CBC & Chem 7: 12/18/21 06:24 12/19/21 09:27 Labs: Microbiology - Last 24 Hours (Table) 12/16/21 15:30 Blood Culture - Preliminary Blood No Growth after 120 hours 12/16/21 15:15 Blood Culture - Preliminary Blood No Growth after 120 hours 12/16/21 18:08 Anaerobic Culture - Final Wrist - Right Anaerobic Gm Negative Bacilli Anaerobic Gm Negative Bacilli#2 Assessment and Plan (1) Open wound of right wrist Current Visit: Yes Status: Acute Code(s): S61.501A - UNSPECIFIED OPEN WOUND OF RIGHT WRIST, INITIAL ENCOUNTER SNOMED Code(s): 20896819387839956 Plan: Patient with a chronic nonhealing wound on the dorsum aspect of the wrist/forearm area in this patient with a previous history of fracture and nonhealing, with concern for possible underlying osteomyelitis wound culture MSSA and Klebsiella bone scan has been suspicious for possible osteomyelitis at the wound location , Ortho recommending not removal of any retained hardware as the hardware embedded down in the bone and not in relation to the open wound, pa tient is currently covered with Rocephin with the culture now showing anaerobes Flagyl will be added patient seemed to be slightly reluctant on going home with IV antibiotic therapy and wants to be discharged on oral will discuss further with her medical physician Time with Patient: Less than 30
[2021-12-22] MEDS: LEVOTHYROXINE 100 MCG TAB PO SCH (04:58)
[2021-12-22] MEDS: oxyCODONE-APAP 7.5-325MG 1 EACH TAB PO PRN ×4 (04:59→22:13)
[2021-12-22] MEDS: lisinopriL 20 MG TAB PO SCH ×2 (08:48→20:26)
[2021-12-22] MEDS: CHOLECALCIFEROL 25 MCG (1000 IU) TABLET PO SCH (08:48)
[2021-12-22] MEDS: amLODIPine 10 MG TAB PO SCH (08:48)
[2021-12-22] MEDS: PANTOPRAZOLE 40 MG TABLET PO SCH (08:48)
[2021-12-22] MEDS: CALCIUM CARB-VIT D 500 MG-5 MCG TAB PO SCH (08:48)
[2021-12-22] MEDS: ASCORBIC ACID 500 MG TAB PO SCH (08:48)
[2021-12-22] MEDS: busPIRone HCl 10 MG TAB PO SCH ×2 (08:49→21:01)
[2021-12-22] MEDS: ASPIRIN 81 MG PO SCH (08:49)
[2021-12-22] MEDS: HEPARIN SODIUM,PORCINE/PF 5,000 UNIT/0.5 ML SYRINGE SQ SCH ×3 (08:49→20:27)
[2021-12-22] MEDS: ATORVASTATIN 20 MG TAB PO SCH (08:49)
[2021-12-22] MEDS: metroNIDAZOLE 500 MG TAB PO SCH ×3 (08:56→20:27)
[2021-12-22] MEDS: SERTRALINE 100 MG TAB PO SCH (08:56)
[2021-12-22] MEDS: hydroCHLOROthiazide 25 MG TAB PO SCH (08:57)
[2021-12-22] MEDS: RALOXIFENE 60 MG TAB PO SCH (08:58)
[2021-12-22] MEDS: METOPROLOL TARTRATE 50 MG TAB PO SCH (09:02)
--- NOTE | 2021-12-22 19:23 | P.PN ---
Progress Note - Text Progress Note Date: 12/22/21 Hospital course: I'm rounding for Dr. Ruyd Gibson. Patient has a chronic nonhealing wound on the dorsum aspect of the wrist/forearm Vasquez with a prior history of fractured nonhealing wound. Concerned about underlying osteomyelitis with cultures positive for MSSA and Klebsiella. Bone scan was suspicious for the same. Orthopedics recommended non-removal of the retained hardware at this is embedded down in the bone. Not in relation to the open wound. December 22: Pain control. Appetite is good. No fever no chills. Had a bowel movement. She looking for to get discharged tomorrow. Antibiotics per ID. Review of systems: Was done for constitutional, cardiovascular, GI, pulmonary. r elevant finding as above Active Medications Amlodipine Besylate (Amlodipine 10 Mg Tab) 10 mg PO DAILY [facility] Last Admin: 12/22/21 08:48 Dose: 10 mg Documented by: Ascorbic Acid (Ascorbic Acid 500 Mg Tab) 500 mg PO DAILY [facility] Last Admin: 12/22/21 08:48 Dose: 500 mg Documented by: Aspirin (Aspirin 81 Mg) 81 mg PO DAILY [facility] Last Admin: 12/22/21 08:49 Dose: 81 mg Documented by: Atorvastatin Calcium (Atorvastatin 20 Mg Tab) 20 mg PO DAILY [facility] Last Admin: 12/22/21 08:49 Dose: 20 mg Documented by: Buspirone HCl (Buspirone Hcl 10 Mg Tab) 10 mg PO BID [facility] Last Admin: 12/22/21 08:49 Dose: 10 mg Documented by: Calcium Carbonate (Calcium Carb-Vit D 500 Mg-5 Mcg Tab) 1 each PO DAILY [facility] Last Admin: 12/22/21 08:48 Dose: 1 each Documented by: Cholecalciferol (Cholecalciferol 25 Mcg (1000 Iu) Tablet) 25 mcg PO DAILY [facility] Last Admin: 12/22/21 08:48 Dose: 25 mcg Documented by: Dicyclomine HCl (Dicyclomine 10 Mg Cap) 10 mg PO QID PRN PRN Reason: IBS Ergocalciferol (Ergocalciferol 1,250 Mcg (50,000 Iu) Capsule) 1,250 mcg PO WE [facility] Last Admin: 12/18/21 10:39 Dose: 1,250 mcg Documented by: Heparin Sodium (Porcine) (Heparin Sodium,Porcine/Pf 5,000 Unit/0.5 Ml Syringe) 5,000 unit SQ Q8HR [facility] Last Admin: 12/22/21 16:16 Dose: 5,000 unit Documented by: Hydralazine HCl (Hydralazine Hcl 20 Mg/Ml 1 Ml Vial) 10 mg IVP Q4HR PRN PRN Reason: Blood Pressure - High Last Admin: 12/20/21 03:22 Dose: 10 mg Documented by: Hydrochlorothiazide (Hydrochlorothiazide 25 Mg Tab) 25 mg PO DAILY [facility] Last Admin: 12/22/21 08:57 Dose: 25 mg Documented by: Ceftriaxone Sodium 2 gm/ (Sodium Chloride) 50 mls @ 100 mls/hr IVPB Q24HR [facility] Last Admin: 12/22/21 08:49 Dose: 100 mls/hr Documented by: Levothyroxine Sodium (Levothyroxine 100 Mcg Tab) 100 mcg PO DAILY@0630 [facility] Last Admin: 12/22/21 04:58 Dose: 100 mcg Documented by: Lisinopril (Lisinopril 20 Mg Tab) 20 mg PO BID [facility] Last Admin: 12/22/21 08:48 Dose: 20 mg Documented by: Metoprolol Tartrate (Metoprolol Tartrate 50 Mg Tab) 50 mg PO DAILY [facility] Last Admin: 12/22/21 09:02 Dose: 50 mg Documented by: Metoprolol Tartrate (Metoprolol Tartrate 25 Mg Tab) 25 mg PO HS [facility] Last Admin: 12/21/21 19:43 Dose: 25 mg Documented by: Metronidazole (Metronidazole 500 Mg Tab) 500 mg PO TID [facility] Last Admin: 12/22/21 16:50 Dose: 500 mg Documented by: Naloxone HCl (Naloxone 0.4 Mg/Ml 1 Ml Vial) 0.2 mg IV Q2M PRN PRN Reason: Opioid Reversal Oxycodone/Acetaminophen (Oxycodone-Apap 7.5-325mg 1 Each Tab) 1 each PO Q6H PRN PRN Reason: Pain Last Admin: 12/22/21 16:10 Dose: 1 each Documented by: Pantoprazole Sodium (Pantoprazole 40 Mg Tablet) 40 mg PO AC-[id number] [facility] Last Admin: 12/22/21 08:48 Dose: 40 mg Documented by: Raloxifene HCl (Raloxifene 60 Mg Tab) 60 mg PO DAILY [facility] Last Admin: 12/22/21 08:58 Dose: 60 mg Documented by: Risperidone (Risperidone 2 Mg Tab) 2 mg PO HS [facility] Last Admin: 12/21/21 19:43 Dose: 2 mg Documented by: Sertraline HCl (Sertraline 100 Mg Tab) 200 mg PO DAILY [facility] Last Admin: 12/22/21 08:56 Dose: 200 mg Documented by: Sodium Chloride (Sodium Chloride 0.9% Flush 10 Ml Syringe) 10 ml IV Q4HR PRN PRN Reason: PICC Line Sodium Chloride (Sodium Chloride 0.9% Flush 10 Ml Syringe) 10 ml IV WEEKLY [facility] Sodium Chloride (Sodium Chloride 0.9% Flush 10 Ml Syringe) 20 ml IV Q4HR PRN PRN Reason: PICC Line Trazodone HCl (Trazodone Hcl 100 Mg Tab) 100 mg PO [facility] Last Admin: 12/21/21 19:43 Dose: 100 mg Documented by: On examination: VITAL SIGNS: 98, 77, 18, 149/78, 100% on 5 L GENERAL APPEARANCE: Average build. Lying in bed, not in distress. HEENT: Normal external appearance of nose and ear. Oral cavity normal EYES: Pupils equal. Conjunctiva normal. NECK: JVD not raised. Mass not palpable. RESPIRATORY: Respiratory effort normal. Lungs clear to auscultation. CARDIOVASCULAR: First and second sounds normal. No edema. ABDOMEN: Soft. Liver and spleen not palpable. No tenderness. No mass palpable. PSYCHIATRY: Alert and oriented x3. Mood and affect normal. INVESTIGATIONS, reviewed in the clinical context: Labs reviewed Assessment and plan: -Chronic nonhealing wound of the right forearm dorsum, with suspicion for possible osteomyelitis. Cultures positive for klebsiella pneumoniae and MSSA. IV ceftriaxone. Final antibiotics to be determined by ID. -COPD in a prior smoker Bronchitis as needed -Chronic fibromyalgia Pain medications -Primary osteoarthritis and rheumatoid arthritis Pain medications -Hypothyroid Synthroid 100 g a day -Essential hypertension Lopressor, amlodipine, hydrochlorothiazide, Zestril -Hyperlipidemia Lipitor 10 mg daily -Hypothyroid 100 g daily -GERD Protonix 40 mg daily Depression anxiety Zoloft, trazodone, Risperdal Continue current medications. DC antibiotics per ID. Care was discussed with the patient. Hopefully discharge tomorrow.
[2021-12-22] MEDS: traZODone HCL 100 MG TAB PO SCH (20:26)
[2021-12-22] MEDS: METOPROLOL TARTRATE 25 MG TAB PO SCH (20:26)
[2021-12-22] MEDS: risperiDONE 2 MG TAB PO SCH (20:26)
--- NOTE | 2021-12-22 21:48 | P.PN ---
Subjective Progress Note Date: 12/22/21 Principal diagnosis: Chronic right upper extremity wound and deformity question of osteomyelitis Patient is a 71 female with a past medical history significant for chronic deformity to the right upper extremity with a fracture surgeries in the past and did have a chronic nonhealing wound on the dorsum aspect of the right wrist area. On today's evaluation that is , The patient denies any fever or any chills, the patient pain to the right forearm wound area is currently controlled, patient denies having any chest pain shortness of breath or cough no abdominal pain no diarrhea Objective - Vital Signs Vital signs: Vital Signs Temp 98.0 F 12/22/21 14:00 Pulse 80 12/22/21 20:20 Resp 18 12/22/21 20:20 BP 149/78 12/22/21 14:00 Pulse Ox 100 12/22/21 14:00 Intake & Output 12/22/21 12/22/21 12/23/21 06:59 18:59 06:59 Intake Total 354 Balance 354 Intake: Oral 354 Other: Voiding Method Toilet Toilet Toilet # Voids 2 3 1 # Bowel Movements 2 1 1 - Exam GENERAL DESCRIPTION elderly female lying in bed, no distress. No tachypnea or accessory muscle of respiration use. LUNGS: Unlabored breathing. Decreased intensity of breath sounds. No wheeze or crackle. HEART: S1, S2, regular rate and rhythm. No loud murmur ABDOMEN: Soft, no tenderness , guarding or rigidity, no organomegaly EXTREMITIES: Chronic deformity of the right wrist area with a nonhealing wound no significant slough tissue surrounding redness or drainage. - Labs CBC & Chem 7: 12/18/21 06:24 12/19/21 09:27 Labs: Microbiology - Last 24 Hours (Table) 12/16/21 15:30 Blood Culture - Final Blood No Growth after 144 hours 12/16/21 15:15 Blood Culture - Final Blood No Growth after 144 hours Assessment and Plan (1) Open wound of right wrist Current Visit: Yes Status: Acute Code(s): S61.501A - UNSPECIFIED OPEN WOUND OF RIGHT WRIST, INITIAL ENCOUNTER SNOMED Code(s): 22619850798542000 Plan: Patient with a chronic nonhealing wound on the dorsum aspect of the wrist/forearm area in this patient with a previous history of fracture and nonhealing, with concern for possible underlying osteomyelitis wound culture MSSA and Klebsiella bone scan has been suspicious for possible osteomyelitis at the wound location , Ortho recommending not removal of any retained hardware as the hardware embedded down in the bone and not in relation to the open wound, patient is currently covered with Rocephin with the culture now showing anaerobes Flagyl was added ,, possible transfer to the group home tomorrow to continue with Rocephin and Flagyl for 4 weeks as a clinical response Time with Patient: Less than 30
[2021-12-23] MEDS: oxyCODONE-APAP 7.5-325MG 1 EACH TAB PO PRN ×3 (05:17→19:40)
[2021-12-23] MEDS: LEVOTHYROXINE 100 MCG TAB PO SCH (05:17)
[2021-12-23] MEDS: lisinopriL 20 MG TAB PO SCH ×2 (07:36→19:39)
[2021-12-23] MEDS: amLODIPine 10 MG TAB PO SCH (07:36)
[2021-12-23] MEDS: PANTOPRAZOLE 40 MG TABLET PO SCH (07:36)
[2021-12-23] MEDS: ASPIRIN 81 MG PO SCH (07:36)
[2021-12-23] MEDS: ASCORBIC ACID 500 MG TAB PO SCH (07:37)
[2021-12-23] MEDS: ATORVASTATIN 20 MG TAB PO SCH (07:37)
[2021-12-23] MEDS: CHOLECALCIFEROL 25 MCG (1000 IU) TABLET PO SCH (07:37)
[2021-12-23] MEDS: METOPROLOL TARTRATE 50 MG TAB PO SCH (07:37)
[2021-12-23] MEDS: HEPARIN SODIUM,PORCINE/PF 5,000 UNIT/0.5 ML SYRINGE SQ SCH ×3 (07:37→22:58)
[2021-12-23] MEDS: busPIRone HCl 10 MG TAB PO SCH ×2 (07:43→19:40)
[2021-12-23] MEDS: metroNIDAZOLE 500 MG TAB PO SCH ×3 (07:43→22:57)
[2021-12-23] MEDS: SERTRALINE 100 MG TAB PO SCH (07:44)
[2021-12-23] MEDS: hydroCHLOROthiazide 25 MG TAB PO SCH (07:44)
[2021-12-23] MEDS: RALOXIFENE 60 MG TAB PO SCH (07:44)
[2021-12-23] MEDS: CALCIUM CARB-VIT D 500 MG-5 MCG TAB PO SCH (07:45)
[2021-12-23 08:25] LABS: Hypochromasia Moderate; MCH 30.1 pg (25.0-35.0); MCHC 30.8 g/dL (31.0-37.0); MCV 97.8 fL (80.0-100.0); Mean Platelet Volume 8.7; Platelet Count 101 k/uL (150-450); RBC 3.99 m/uL (3.80-5.40); WBC 4.6 k/uL (3.8-10.6)
[2021-12-23 08:40] LABS: African American GFR (CKD) 61 (>60 ml/min/1.73 sqM); Anion Gap 11 mmol/L; Blood Urea Nitrogen 33 mg/dL (7-17); Calcium 9.6 mg/dL (8.4-10.2); Carbon Dioxide 21 mmol/L (22-30); Chloride 107 mmol/L (98-107); Glucose 112 mg/dL (74-99); Non-African American GFR(CKD) 53 (>60 ml/min/1.73 sqM); Potassium 4.2 mmol/L (3.5-5.1); Sodium 139 mmol/L (137-145)
[2021-12-23 11:54] LABS: Eosinophils # (M) 0.05 k/uL (0-0.7); Lymphocytes # (M) 0.64 k/uL (1.0-4.8); Monocytes # (M) 0.51 k/uL (0-1.0); Neutrophils % (M) 74 %; Nucleated Red Blood Cells 0 /100 WBC (0-0); Total Cells Counted 100
[2021-12-23] MEDS: risperiDONE 2 MG TAB PO SCH (19:39)
[2021-12-23] MEDS: METOPROLOL TARTRATE 25 MG TAB PO SCH (19:39)
[2021-12-23] MEDS: traZODone HCL 100 MG TAB PO SCH (19:40)
[2021-12-23 20:17] VITALS: RESP 18
--- NOTE | 2021-12-23 23:18 | P.PN ---
Subjective Progress Note Date: 12/23/21 Principal diagnosis: Chronic right upper extremity wound and deformity question of osteomyelitis Patient is a 71 female with a past medical history significant for chronic deformity to the right upper extremity with a fracture surgeries in the past and did have a chronic nonhealing wound on the dorsum aspect of the right wrist area. On today's evaluation that is 12/23/2021, The patient remains to be afebrile, the patient pain to the right forearm wound area is currently controlled and there is no significant drainage, patient denies having any chest pain shortness of breath or cough no abdominal pain no diarrhea Objective - Vital Signs Vital signs: Vital Signs Temp 97.5 F L 12/23/21 08:00 Pulse 88 12/23/21 08:00 Resp 20 12/23/21 08:00 BP 160/88 12/23/21 08:00 Pulse Ox 98 12/23/21 08:00 Intake & Output 12/22/21 12/23/21 12/23/21 18:59 06:59 18:59 Intake Total 354 240 Balance 354 240 Intake: Oral 354 240 Other: Voiding Method Toilet Toilet Toilet # Voids 3 2 # Bowel Movements 1 1 - Exam GENERAL DESCRIPTION elderly female lying in bed, no distress. No tachypnea or accessory muscle of respiration use. LUNGS: Unlabored breathing. Decreased intensity of breath sounds. No wheeze or crackle. HEART: S1, S2, regular rate and rhythm. No loud murmur ABDOMEN: Soft, no tenderness , guarding or rigidity, no organomegaly EXTREMITIES: Chronic deformity of the right wrist area with a nonhealing wound no significant slough tissue surrounding redness or drainage. - Labs CBC & Chem 7: 12/23/21 07:49 12/23/21 07:49 Labs: Abnormal Lab Results - Last 24 Hours (Table) 12/23/21 12/23/21 Range/Units 07:49 07:49 MCHC 30.8 L (31.0-37.0) g/dL Plt Count 101 L (150-450) k/uL Lymphocytes # (Manual) 0.64 L (1.0-4.8) k/uL Carbon Dioxide 21 L (22-30) mmol/L BUN 33 H (7-17) mg/dL Creatinine 1.05 H (0.52-1.04) mg/dL Glucose 112 H (74-99) mg/dL Microbiology - Last 24 Hours (Table) 12/16/21 15:30 Blood Culture - Final Blood No Growth after 144 hours 12/16/21 15:15 Blood Culture - Final Blood No Growth after 144 hours Assessment and Plan (1) Open wound of right wrist Current Visit: Yes Status: Acute Code(s): S61.501A - UNSPECIFIED OPEN WOUND OF RIGHT WRIST, INITIAL ENCOUNTER SNOMED Code(s): 52131583248397857 Plan: Patient with a chronic nonhealing wound on the dorsum aspect of the wrist/forearm area in this patient with a previous history of fracture and nonhealing, with concern for possible underlying osteomyelitis wound culture MSSA and Klebsiella bone scan has been suspicious for possible osteomyelitis at the wound location , Ortho recommending not removal of any retained hardware as the hardware embedded down in the bone and not in relation to the open wound, patient is currently covered with Rocephin with anaerobes cultures also positive Flagyl was added, patient is currently waiting for transfer to the correction tomorrow to continue with Rocephin and Flagyl for 4 weeks, local wound care with a dry Aquacel silver dressing Time with Patient: Less than 30
[2021-12-24] MEDS: oxyCODONE-APAP 7.5-325MG 1 EACH TAB PO PRN ×2 (02:15→08:00)
[2021-12-24 03:23] VITALS: TEMP 97.8
[2021-12-24] MEDS: LEVOTHYROXINE 100 MCG TAB PO SCH (05:04)
--- NOTE | 2021-12-24 07:02 | PN ---
PROGRESS NOTE 71-year-old white female awaiting possible [facility] placement for IV antibiotics for another 7 days. Breathing better. Sitting up in bed. No chest pain, shortness of breath. White count normal now. Sodium and potassium are normal. A little bit of dehydration, BUN 36, creatinine 1.05. Remains on broad-spectrum antibiotics which will be needed for another week. IV Rocephin and Flagyl at home. Otherwise, she is stable medically. Cervical degenerative disease will have to be dealt with as an outpatient. PROGNOSIS: Guarded. MMODL / IJN: [id number] /
[2021-12-24] MEDS: ASPIRIN 81 MG PO SCH (07:43)
[2021-12-24] MEDS: ATORVASTATIN 20 MG TAB PO SCH (07:44)
[2021-12-24] MEDS: CHOLECALCIFEROL 25 MCG (1000 IU) TABLET PO SCH (07:44)
[2021-12-24] MEDS: busPIRone HCl 10 MG TAB PO SCH (07:44)
[2021-12-24] MEDS: PANTOPRAZOLE 40 MG TABLET PO SCH (07:44)
[2021-12-24] MEDS: ASCORBIC ACID 500 MG TAB PO SCH (07:44)
[2021-12-24] MEDS: CALCIUM CARB-VIT D 500 MG-5 MCG TAB PO SCH (07:45)
[2021-12-24] MEDS: metroNIDAZOLE 500 MG TAB PO SCH (07:49)
[2021-12-24] MEDS: RALOXIFENE 60 MG TAB PO SCH (07:49)
[2021-12-24] MEDS: HEPARIN SODIUM,PORCINE/PF 5,000 UNIT/0.5 ML SYRINGE SQ SCH ×2 (07:57→16:09)
[2021-12-24 08:27] VITALS: BP 155/93; PULSE 90
[2021-12-24] MEDS: METOPROLOL TARTRATE 50 MG TAB PO SCH (08:49)
[2021-12-24] MEDS: amLODIPine 10 MG TAB PO SCH (08:49)
[2021-12-24] MEDS: lisinopriL 20 MG TAB PO SCH (08:49)
[2021-12-24] MEDS: hydroCHLOROthiazide 25 MG TAB PO SCH (08:49)
[2021-12-24] MEDS: SERTRALINE 100 MG TAB PO SCH (08:50)
--- NOTE | 2021-12-24 13:40 | DS ---
DISCHARGE SUMMARY DISCHARGE DIAGNOSES: 1. Cellulitis of the right wrist. 2. Open wound, right wrist, with skin infection. 3. Syncope. 4. Cervical degenerative disc disease. 5. Dyslipidemia. 6. Hypertension acceleration with encephalopathy secondary to hypertension. 7. Depression. 8. Syncope secondary to hypertension acceleration. 9. Cervical degenerative disc disease of significant nature. HOME MEDICINE: 1. Aspirin 81 mg daily. 2. Lopressor 25 at night 50 in the morning. 3. Metoprolol tartrate. 4. Amlodipine 10 mg daily. 5. Zestril 20 mg b.i.d. 6. Lipitor 20 mg daily. 7. HydroDIURIL 25 mg daily. 8. Flagyl 500 mg t.i.d. for 10 days. 9. Rocephin 2 grams IV piggyback every 24 hours for 10 days. 10.Zoloft 200 mg daily. 11.Evista 60 mg daily. 12.Risperdal 2 mg at night. 13.Protonix 40 mg daily. 14.BuSpar 10 mg b.i.d. 15.Vitamin C 500 mg daily. 16.Trazodone 100 mg at bedtime. 17.Calcium carbonate 600 mg daily. 18.Naprosyn 500 mg b.i.d. 19.Synthroid 100 mcg daily for hypothyroidism. 20.Percocet 7.5 every 6 hours p.r.n. for pain. 21.Vitamin D 1000 international units daily. 22.Walden-3 1000 mg daily. 23.Vitamin D. 24.Bentyl 20 mg q.i.d. CONDITION: Stable. Prognosis guarded. This 71-year-old white female was admitted with syncope. Full cardiac and neurologic workup was done. She was found to have significant cervical degenerative disc disease. She will follow up with Dr. Freeman. She had MRI of the brain. Carotid CT of the neck showed no significant obstruction. She was found to have hypothyroidism. She was started on Synthroid. Her syncope improved. Orthostatic checks were done. Cardiology cleared her for discharge. Echo showed good ejection fraction. She was treated for a wound infection of the right wrist, chronic, due to significant severe rheumatoid arthritis. Wound culture was positive for Klebsiella. She was started on Flagyl and Rocephin. She will need IV Rocephin for 10 days and Flagyl orally for 10 days and then repeat wound cultures in the right wrist. Dr. Molina saw her from Infectious Disease. She is otherwise stable. She has been up with Physical Therapy in the room over the last few days. Diet will be as tolerated. Condition stable. Prognosis guarded. MMHERMANL / IJN: [id number] /
--- NOTE | 2021-12-24 16:33 | CDI ---
Documentation Clarification Form Date: 12/24/2021 03:59:03 PM From: Mehnaz Roper RN, CCDS Admit Date: 12/18/2021 11:25:00 AM Patient Name: Jessica Burnett Visit Number: [id number] Discharge Date: ATTENTION: The Clinical Documentation Specialists (CDI) and [facility] Coding Staff appreciate your assistance in clarifying documentation. Please respond to the clarification below the line at the bottom and electronically sign. The CDI & [facility] Coding staff will review the response and follow-up if needed. Please note: Queries are made part of the Legal Health Record. If you have any questions, please contact the author of this message via ITS. Dr. Rudy Gibson Conflicting documentation has been found in the medical record. As attending physician, please provide clarification. 12/24 Attending progress notes: Hypertension accelerated with encephalopathy secondary to hypertension. Syncope secondary to hypertension acceleration. 12/20 Attending progress notes hypertensive emergency, 12/18 Attending progress notes: uncontrolled hypertension, hypertensive urgency History/Risk Factors: Hypertension, COPD, Chronic nonhealing wound to the right forearm, Rheumatoid arthritis, Fibromyalgia, TIAs Clinical Indicators: 71-year old female present per daughter slumped over multiple times and would "{go out" and would wake up confused. Her blood pressure was found to be significantly elevated with a systolic greater than 200. The patient does not take any antihypertensive medications at home. EKG sinus mechanism with nonspecific ST-T wave changes. 12/18 CXR: Mild cardiomegaly with new interstitial edema difficult to exclude on background chronic changes 12/18 Vital signs: 195/102 89 20 98.4, 180/86 79 18 12/18 WBC 5.2, BUN 17, CR 0.81 Troponin negative x3 12/18 CT of head: no acute intracranial hemorrhage or midline shift. There is mild to moderate diffuse age-related cerebral atrophy and chronic small vessel ischemic changes Treatment: Telemetry monitoring Monitor blood pressure Lisinopril 10 mg po daily, Metoprolol 25 mg po daily, Amlodipine 5 mg po at night Please clarify which diagnosis is most appropriate: Check orthostatic blood pressure Neurology for evaluation 12/19 progress notes: Near-syncope episode unsure exact cause. Unsure if due to opioid use vs uncontrolled hypertension. Hypertensive urgency. [ ] Syncope secondary to Hypertensive Emergency [ ] Syncope secondary to Hypertensive Urgency [ ] Other, specify [ ] Unable to determine (Template Last Revised: January 2021) MTDD
--- NOTE | 2021-12-26 07:46 | CDI ---
Documentation Clarification Form Date: 12/24/2021 03:59:00 PM From: Mehnaz Roper RN, CCDS Admit Date: 12/18/2021 11:25:00 AM Patient Name: Jessica Burnett Visit Number: [id number] Discharge Date: 12/24/2021 05:23:00 PM ATTENTION: The Clinical Documentation Specialists (CDI) and [facility] Coding Staff appreciate your assistance in clarifying documentation. Please respond to the clarification below the line at the bottom and electronically sign. The CDI & [facility] Coding staff will review the response and follow-up if needed. Please note: Queries are made part of the Legal Health Record. If you have any questions, please contact the author of this message via ITS. Dr. Rudy Gibson Conflicting documentation has been found in the medical record. As attending physician, please provide clarification. 12/24 Attending progress notes: Hypertension accelerated with encephalopathy secondary to hypertension. Syncope secondary to hypertension acceleration. 12/20 Attending progress notes hypertensive emergency, 12/18 Attending progress notes: uncontrolled hypertension, hypertensive urgency History/Risk Factors: Hypertension, COPD, Chronic nonhealing wound to the right forearm, Rheumatoid arthritis, Fibromyalgia, TIAs Clinical Indicators: 71-year old female present per daughter slumped over multiple times and would "{go out" and would wake up confused. Her blood pressure was found to be significantly elevated with a systolic greater than 200. The patient does not take any antihypertensive medications at home. EKG sinus mechanism with nonspecific ST-T wave changes. 12/18 Vital signs: 195/102 89 20 98.4, 180/86 79 18 12/18 CXR: Mild cardiomegaly with new interstitial edema difficult to exclude on background chronic changes 12/18 WBC 5.2, BUN 17, CR 0.81 Troponin negative x3 12/18 CT of head: no acute intracranial hemorrhage or midline shift. There is mild to moderate diffuse age-related cerebral atrophy and chronic small vessel ischemic changes Treatment: Telemetry monitoring Monitor blood pressure Lisinopril 10 mg po daily, Metoprolol 25 mg po daily, Amlodipine 5 mg po at night Please clarify which diagnosis is most appropriate: Check orthostatic blood pressure Neurology for evaluation 12/19 progress notes: Near-syncope episode unsure exact cause. Unsure if due to opioid use vs uncontrolled hypertension. Hypertensive urgency. [ ] Syncope secondary to Hypertensive Emergency [ ] Syncope secondary to Hypertensive Urgency [ ] Other, specify [ ] Unable to determine (Template Last Revised: January 2021) MTDD
--- NOTE | 2021-12-30 10:21 | CDI ---
Documentation Clarification Form Date: 12/24/2021 03:59:00 PM From: Mehnaz Roper RN, CCDS Admit Date: 12/18/2021 11:25:00 AM Patient Name: Jessica Burnett Visit Number: [id number] Discharge Date: 12/24/2021 05:23:00 PM ATTENTION: The Clinical Documentation Specialists (CDI) and [facility] Coding Staff appreciate your assistance in clarifying documentation. Please respond to the clarification below the line at the bottom and electronically sign. The CDI & [facility] Coding staff will review the response and follow-up if needed. Please note: Queries are made part of the Legal Health Record. If you have any questions, please contact the author of this message via ITS. Dr. Rudy Gibson Conflicting documentation has been found in the medical record. As attending physician, please provide clarification. 12/24 Attending progress notes: Hypertension accelerated with encephalopathy secondary to hypertension. Syncope secondary to hypertension acceleration. 12/20 Attending progress notes hypertensive emergency, 12/18 Attending progress notes: uncontrolled hypertension, hypertensive urgency History/Risk Factors: Hypertension, COPD, Chronic nonhealing wound to the right forearm, Rheumatoid arthritis, Fibromyalgia, TIAs Clinical Indicators: 71-year old female present per daughter slumped over multiple times and would "go out" and would wake up confused. Her blood pressure was found to be significantly elevated with a systolic greater than 200. The patient does not take any antihypertensive medications at home. EKG sinus mechanism with nonspecific ST-T wave changes. 12/18 Vital signs: 195/102 89 20 98.4, 180/86 79 18 12/18 CXR: Mild cardiomegaly with new interstitial edema difficult to exclude on background chronic changes 12/18 WBC 5.2, BUN 17, CR 0.81 Troponin negative x3 12/18 CT of head: no acute intracranial hemorrhage or midline shift. There is mild to moderate diffuse age-related cerebral atrophy and chronic small vessel ischemic changes Treatment: Telemetry monitoring Monitor blood pressure Lisinopril 10 MG PO. Daily, Metoprolol 25 MG PO Daily, Amlodipine 5 MG PO. at night Check orthostatic blood pressure Neurology for evaluation 12/19 progress notes: Near-syncope episode unsure exact cause. Unsure if due to opioid use vs uncontrolled hypertension. Hypertensive urgency. Please clarify which diagnosis is most appropriate: [ ] Syncope secondary to Hypertensive Emergency [ ] Syncope secondary to Hypertensive Urgency [ ] Other, specify [ ] Unable to determine (Template Last Revised: January 2021) MTDD
--- NOTE | 2021-12-31 22:23 | P.PN ---
Subjective Progress Note Date: 12/24/21 Principal diagnosis: Chronic right upper extremity wound and deformity question of osteomyelitis Patient is a 71 female with a past medical history significant for chronic deformity to the right upper extremity with a fracture surgeries in the past and did have a chronic nonhealing wound on the dorsum aspect of the right wrist area. On today's evaluation that is 12/24/2021, The patient continues to be afebrile, the patient pain to the right forearm wound area is currently controlled and there is no significant drainage from the small wound she has on the dorsum asp ect, patient denies having any chest pain shortness of breath or cough no abdominal pain no diarrhea Objective - Vital Signs Vital signs: Vital Signs Temp 97.8 F 12/24/21 08:00 Pulse 90 12/24/21 08:00 Resp 18 12/24/21 08:12 BP 155/93 12/24/21 08:00 Pulse Ox 99 12/24/21 08:00 Intake & Output 12/23/21 12/24/21 12/24/21 18:59 06:59 18:59 Intake Total 240 118 Balance 240 118 Intake: Oral 240 118 Other: Voiding Method Toilet Toilet Toilet # Voids 1 1 - Exam GENERAL DESCRIPTION elderly female lying in bed, no distress. No tachypnea or accessory muscle of respiration use. LUNGS: Unlabored breathing. Decreased intensity of breath sounds. No wheeze or crackle. HEART: S1, S2, regular rate and rhythm. No loud murmur ABDOMEN: Soft, no tenderness , guarding or rigidity, no organomegaly EXTREMITIES: Chronic deformity of the right wrist area with a nonhealing wound no significant slough tissue surrounding redness or drainage. - Labs CBC & Chem 7: 12/23/21 07:49 12/23/21 07:49 Labs: Abnormal Lab Results - Last 24 Hours (Table) 12/23/21 Range/Units 07:49 Lymphocytes # (Manual) 0.64 L (1.0-4.8) k/uL Assessment and Plan (1) Open wound of right wrist Status: Acute Code(s): S61.501A - UNSPECIFIED OPEN WOUND OF RIGHT WRIST, INITIAL ENCOUNTER SNOMED Code(s): 17626395230474790 Plan: Patient with a chronic nonhealing wound on the dorsum aspect of the wrist/forearm area in this patient with a previous history of fracture and nonhealing, with concern for possible underlying osteomyelitis wound culture MSSA and Klebsiella bone scan has been suspicious for possible osteomyelitis at the wound location , Ortho recommending not removal of any retained hardware as the hardware embedded down in the bone and not in relation to the open wound, patient is currently covered with Rocephin and Flagyl, patient to continue with Rocephin and Flagyl for 4 weeks, local wound care with a dry Aquacel silver dressing Time with Patient: Less than 30
--- NOTE | 2022-01-01 16:40 | PN ---
PROGRESS NOTE ADDENDUM: Please add syncope, secondary to hypertensive emergency. MMODL / IJN: [id number] /
== END 2021-12-24 17:23 | DRG 305 ==
LOC: EC 13:56 → 6NMEDSUR 17:26 → OBSVTOIN 12-18 11:25
PROVIDERS: ADMIT Family Medicine; ATTEND Family Medicine
PROC: 02HV33Z Insertion of Infusion Device into Superior Vena Cava, Percutaneous Approach (ICD-10-PCS; principal; 2021-12-20 13:56)
DX: I16.1 Hypertensive emergency (principal); I67.4 Hypertensive encephalopathy; J96.11 Chronic respiratory failure with hypoxia; H70.002 Acute mastoiditis without complications, left ear; L03.113 Cellulitis of right upper limb; S62.102K Fracture of unspecified carpal bone, left wrist, subsequent encounter for fracture with nonunion; I27.20 Pulmonary hypertension, unspecified; L98.499 Non-pressure chronic ulcer of skin of other sites with unspecified severity; J44.9 Chronic obstructive pulmonary disease, unspecified; M06.9 Rheumatoid arthritis, unspecified; Z20.822 Contact with and (suspected) exposure to COVID-19; I11.9 Hypertensive heart disease without heart failure; Z99.81 Dependence on supplemental oxygen; E03.9 Hypothyroidism, unspecified; E86.0 Dehydration; I65.23 Occlusion and stenosis of bilateral carotid arteries; I08.3 Combined rheumatic disorders of mitral, aortic and tricuspid valves; K21.9 Gastro-esophageal reflux disease without esophagitis; G89.29 Other chronic pain; M79.7 Fibromyalgia; M48.02 Spinal stenosis, cervical region; M47.812 Spondylosis without myelopathy or radiculopathy, cervical region; M50.30 Other cervical disc degeneration, unspecified cervical region; F32.A Depression, unspecified; F41.9 Anxiety disorder, unspecified; E78.5 Hyperlipidemia, unspecified; B96.1 Klebsiella pneumoniae [K. pneumoniae] as the cause of diseases classified elsewhere; B95.61 Methicillin susceptible Staphylococcus aureus infection as the cause of diseases classified elsewhere; M54.9 Dorsalgia, unspecified; R00.1 Bradycardia, unspecified; I25.10 Atherosclerotic heart disease of native coronary artery without angina pectoris; R29.6 Repeated falls; M19.91 Primary osteoarthritis, unspecified site; Z79.890 Hormone replacement therapy; Z79.810 Long term (current) use of selective estrogen receptor modulators (SERMs); Z79.899 Other long term (current) drug therapy; Z87.891 Personal history of nicotine dependence; Z86.16 Personal history of COVID-19; Z87.01 Personal history of pneumonia (recurrent); Z85.528 Personal history of other malignant neoplasm of kidney; Z86.19 Personal history of other infectious and parasitic diseases; Z86.69 Personal history of other diseases of the nervous system and sense organs; Z90.710 Acquired absence of both cervix and uterus; Z87.42 Personal history of other diseases of the female genital tract; Z87.39 Personal history of other diseases of the musculoskeletal system and connective tissue; Z90.5 Acquired absence of kidney; Z96.642 Presence of left artificial hip joint; Z87.81 Personal history of (healed) traumatic fracture; Z86.73 Personal history of transient ischemic attack (TIA), and cerebral infarction without residual deficits; Z98.1 Arthrodesis status; Z98.890 Other specified postprocedural states; Z88.0 Allergy status to penicillin; Z88.6 Allergy status to analgesic agent; Z80.1 Family history of malignant neoplasm of trachea, bronchus and lung; Z82.61 Family history of arthritis
CPT/HCPCS: 36415; 36573; 70450; 70498; 70551; 71046; 71250; 72141; 78315; 80048; 80053; 80202; 81001; 83605; 83735; 84443; 84484; 85025; 85610; 85652; 85730; 86140; 87040; 87070; 87075; 87077; 87186; 87205; 87635; 93005; 93306; 93880; 94760; 95816; 96361; 96365; 96366; 99285

== ENCOUNTER 2022-01-14 21:02 | Emergency (ER) | payer MEDICARE, OTHER ==
[2022-01-14 21:27] VITALS: BP 147/72; RESP 18
[2022-01-14] MEDS ORDERED: MORPHINE SULFATE 4 MG/ML SYRINGE IV STA (21:55)
--- NOTE | 2022-01-14 21:55 | ED ---
General Adult HPI - General Chief complaint: Skin/Abscess/Foreign Body Stated complaint: infection Time Seen by Provider: 01/14/22 21:13 Source: patient Mode of arrival: EMS Limitations: no limitations - History of Present Illness Initial comments: This patient is a 71-year-old woman sent here from senior living to have evaluation following an abnormal x-ray finding at the senior living. It was reported that the patient was having cervical pain and she had a set of x-rays that were concerning for possible osteomyelitis. The patient reportedly has so me osteomyelitis of the right forearm which she is currently receiving treatment for. The patient states she was having some aching pains in the neck, it is difficult for her to characterize, but she reportedly had an x-ray there that had finding that was concerning and they sent her here for follow-up. When I evaluate the patient, she is currently rating the pain moderate. -: unknown Location: neck Radiation: non-radiation Quality: dull Consistency: constant Improves with: none Worsens with: none Associated Symptoms: denies other symptoms Treatments Prior to Arrival: none - Related Data Home Medications Medication Instructions Recorded Confirmed Raloxifene [Evista] 60 mg PO DAILY 02/07/15 01/30/22 Sertraline HCl [Zoloft] 200 mg PO DAILY 02/07/15 01/30/22 risperiDONE [RisperDAL] 2 mg PO HS 04/05/15 01/30/22 Ascorbic Acid [Vitamin C] 500 mg PO DAILY 01/14/20 01/30/22 busPIRone HCl [Buspar] 10 mg PO BID PRN 01/14/20 01/30/22 traZODone HCL 100 mg PO 01/14/20 01/30/22 Naproxen 500 mg PO BID PRN 03/07/21 01/30/22 Cholecalciferol [Vitamin D3 (25 25 mcg PO DAILY 12/16/21 01/30/22 Mcg = 1000 Iu)] Dicyclomine HCl 10 mg PO QID PRN 12/16/21 01/30/22 Ergocalciferol (Vitamin D2) 1,250 mcg PO TH 12/16/21 01/30/22 [Drisdol (50,000 Iu)] Levothyroxine Sodium [Synthroid] 100 mcg PO HS 12/16/21 01/30/22 Drayden-3 Fatty Acids [Drayden-3] 1,000 mg PO DAILY 12/16/21 01/30/22 Atorvastatin [Lipitor] 20 mg PO HS 01/14/22 01/30/22 Omeprazole 20 mg PO DAILY 01/14/22 01/30/22 Albuterol Sulfate [Ventolin HFA] 2 puff INHALATION RT-Q6H PRN 01/30/22 01/30/22 Pantoprazole Sodium 40 mg PO DAILY 01/30/22 01/30/22 Previous Rx's Medication Instructions Recorded Metoprolol Tartrate [Lopressor] 25 mg PO HS #90 tab 12/20/21 Metoprolol Tartrate [Lopressor] 50 mg PO DAILY #90 tab 12/20/21 amLODIPine [Norvasc] 10 mg PO DAILY #90 tab 12/20/21 hydroCHLOROthiazide [Hydrodiuril] 25 mg PO DAILY #90 tab 12/20/21 lisinopriL [Zestril] 20 mg PO BID #180 tab 12/20/21 oxyCODONE-APAP 7.5-325MG [Percocet 1 tab PO Q6H PRN #12 tab 12/24/21 7.5-325 mg] Allergies Allergy/AdvReac Type Severity Reaction Status Date / Time Penicillins Allergy Dyspnea Verified 01/30/22 16:12 aspirin AdvReac Nausea & Verified 01/30/22 16:12 Vomiting morphine AdvReac Hallucinati Verified 01/30/22 19:48 ons Review of Systems ROS Statement: Those systems with pertinent positive or pertinent negative responses have been documented in the HPI. ROS Other: All systems not noted in ROS Statement are negative. Constitutional: Denies: fever Respiratory: Denies: cough, dyspnea Cardiovascular: Denies: chest pain, palpitations Gastrointestinal: Denies: abdominal pain, vomiting Musculoskeletal: Reports: other (Neck pain). Denies: back pain Skin: Denies: rash Neurological: Denies: headache, weakness Past Medical History Past Medical History: Cancer, COPD, Fibromyalgia, Osteoarthritis (OA), Pneumonia, Rheumatoid Arthritis (RA) Additional Past Medical History / Comment(s): Pt tested covid + 03/07/21 [facility] ER. 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 L hand and ulcer on L wrist History of Any Multi-Drug Resistant Organisms: None Reported Past Surgical History: Back Surgery, Hysterectomy, Joint Replacement, Orthopedic Surgery Additional Past Surgical History / Comment(s): L partial nephrectomy, R wrist surgery for fracture, 3 L spine surgeries, 2 cervical surgeries, L hemiarthroplasty d/t fracture, colonoscopy Past Anesthesia/Blood Transfusion Reactions: No Reported Reaction Past Psychological History: Depression Smoking Status: Former smoker Past Alcohol Use History: None Reported Past Drug Use History: None Reported - Past Family History Father Family Medical History: Cancer Additional Family Medical History / Comment(s): LUNG CA Mother Family Medical History: Osteoarthritis (OA) General Exam Limitations: no limitations General appearance: alert, in no apparent distress Head exam: Present: atraumatic, normocephalic Eye exam: Present: normal appearance. Absent: scleral icterus, conjunctival injection Neck exam: Present: normal inspection, full ROM. Absent: tenderness, meningismus Respiratory exam: Present: normal lung sounds bilaterally. Absent: respiratory distress, wheezes, rales, rhonchi, stridor Cardiovascular Exam: Present: regular rate, normal rhythm, normal heart sounds. Absent: systolic murmur, diastolic murmur, rubs, gallop GI/Abdominal exam: Present: soft. Absent: distended, tenderness, guarding, rebound, rigid, mass Extremities exam: Present: normal inspection, normal capillary refill. Absent: pedal edema, calf tenderness Back exam: Present: normal inspection. Absent: CVA tenderness (R), CVA tenderness (L) Neurological exam: Present: alert Skin exam: Present: warm, dry, intact, normal color. Absent: rash Course Vital Signs 01/14/22 21:05 Respiratory 18 Rate Blood Pressure 147/72 O2 Sat by Pulse 99 Oximetry Medical Decision Making - Medical Decision Making This patient is 71-year-old woman who is sent here due to concerns about possible vasculitis evidence by x-ray. Computed tomography scan does not show any evidence concerning for osteomyelitis. Patient is stable for discharge back to extended care facility. - Lab Data Result diagrams: 01/14/22 21:56 01/14/22 21:56 Lab Results 01/14/22 01/14/22 01/14/22 Range/Units 21:56 21:56 21:56 WBC 4.5 (3.8-10.6) k/uL RBC 3.60 L (3.80-5.40) m/uL Hgb 11.1 L (11.4-16.0) gm/dL Hct 33.2 L (34.0-46.0) % MCV 92.3 D (80.0-100.0) fL MCH 30.7 (25.0-35.0) pg MCHC 33.3 (31.0-37.0) g/dL RDW 13.1 (11.5-15.5) % Plt Count 84 L (150-450) k/uL MPV 11.5 Neutrophils % 71 % Lymphocytes % 18 % Monocytes % 6 % Eosinophils % 3 % Basophils % 1 % Neutrophils # 3.2 (1.3-7.7) k/uL Lymphocytes # 0.8 L (1.0-4.8) k/uL Monocytes # 0.3 (0-1.0) k/uL Eosinophils # 0.1 (0-0.7) k/uL Basophils # 0.0 (0-0.2) k/uL Sodium 138 (137-145) mmol/L Potassium 3.8 (3.5-5.1) mmol/L Chloride 108 H (98-107) mmol/L Carbon Dioxide 21 L (22-30) mmol/L Anion Gap 9 mmol/L BUN 21 H (7-17) mg/dL Creatinine 0.96 (0.52-1.04) mg/dL Est GFR (CKD-EPI)AfAm 68 (>60 ml/min/1.73 sqM) Est GFR (CKD-EPI)NonAf 59 (>60 ml/min/1.73 sqM) Glucose 160 H (74-99) mg/dL Calcium 8.9 (8.4-10.2) mg/dL Total Bilirubin 0.3 (0.2-1.3) mg/dL AST 22 (14-36) U/L ALT 12 (4-34) U/L Alkaline Phosphatase 53 (38-126) U/L Troponin I <0.012 (0.000-0.034) ng/mL C-Reactive Protein <0.5 (<1.0) mg/dL Total Protein 6.5 (6.3-8.2) g/dL Albumin 3.8 (3.5-5.0) g/dL Disposition Clinical Impression: Neck pain Disposition: HOME SELF-CARE Condition: Good Is patient prescribed a controlled substance at d/c from ED?: No Referrals: Bhavin Sin DO [Primary Care Provider] - 1-2 days
[2022-01-14 22:24] LABS: Basophils % (A) 1 %; Eosinophils # (A) 0.1 k/uL (0-0.7); Eosinophils % (A) 3 %; HCT 33.2 % (34.0-46.0); HGB 11.1 gm/dL (11.4-16.0); Lymphocytes # (A) 0.8 k/uL (1.0-4.8); Lymphocytes % (A) 18 %; MCH 30.7 pg (25.0-35.0); MCHC 33.3 g/dL (31.0-37.0); MCV 92.3 fL (80.0-100.0); Mean Platelet Volume 11.5; Monocytes # (A) 0.3 k/uL (0-1.0); Monocytes % (A) 6 %; Neutrophils # (A) 3.2 k/uL (1.3-7.7); Neutrophils % (A) 71 %; Platelet Count 84 k/uL (150-450); RDW 13.1 % (11.5-15.5); WBC 4.5 k/uL (3.8-10.6)
[2022-01-14 22:37] LABS: ALT 12 U/L (4-34); AST 22 U/L (14-36); African American GFR (CKD) 68 (>60 ml/min/1.73 sqM); Albumin 3.8 g/dL (3.5-5.0); Alkaline Phosphatase 53 U/L (38-126); Anion Gap 9 mmol/L; Blood Urea Nitrogen 21 mg/dL (7-17); C Reactive Protein <0.5 mg/dL (<1.0); Calcium 8.9 mg/dL (8.4-10.2); Carbon Dioxide 21 mmol/L (22-30); Chloride 108 mmol/L (98-107); Glucose 160 mg/dL (74-99); Non-African American GFR(CKD) 59 (>60 ml/min/1.73 sqM); Potassium 3.8 mmol/L (3.5-5.1); Sodium 138 mmol/L (137-145); Total Bilirubin 0.3 mg/dL (0.2-1.3); Total Protein 6.5 g/dL (6.3-8.2)
[2022-01-15] MEDS ORDERED: MORPHINE SULFATE 4 MG/ML SYRINGE ONE (00:37)
[2022-01-15] MEDS ORDERED: MORPHINE SULFATE 4 MG/ML SYRINGE IVP ONE (00:40)
[2022-01-15] MEDS ORDERED: MORPHINE SULFATE 4 MG/ML SYRINGE IV STA (04:22)
--- NOTE | 2022-01-15 09:36 | CT ---
EXAM: CT Cervical Spine Without and With Intravenous Contrast CLINICAL HISTORY: ITS.REASON CT Reason: suspected osteomyelitis TECHNIQUE: Axial computed tomography images of the cervical spine without and with intravenous contrast. CTDI is 34.4 mGy and DLP is 822.3 mGy-cm. This CT exam was performed using one or more of the following dose reduction techniques: automated exposure control, adjustment of the mA and/or kV according to patient size, and/or use of iterative reconstruction technique. COMPARISON: MRI 12/18/2021; CTA neck 12/18/2021 FINDINGS: Vertebrae: There is stable reversal of the normal cervical lordosis, centered at C4 and C5 levels. No acute osseous abnormality. No CT evidence for cortical destruction. Similar degenerative facet ankylosis from C3-C6 levels bilaterally. Discs/spinal canal/neural foramina: Anterior fusion noted at C3-4 and C4-5. Stable discectomy at C5-6. Stable disc space narrowing with marginal hypertrophic osteophyte changes at C6-7. Soft tissues: No abnormal soft tissue enhancement. No prevertebral fluid. Thyroid: A heterogeneously hypoenhancing area along the anterior aspect of the left thyroid is noted in measuring approximately 12 x 11 mm. Lung apices: There is a suggestion of interlobular septal thickening in the lung apices. No focal consolidation. IMPRESSION: 1. Stable appearance of the cervical spine with similar postsurgical and degenerative changes. No evidence for osteomyelitis. 2. Heterogeneous thyroid enhancement. Recommend nonemergent diagnostic thyroid ultrasound, if not already performed previously. 3. No abnormal soft tissue enhancement.
== END 2022-01-15 08:25 | disposition home or self-care (01) ==
LOC: EC 21:02 → SUPCPDRO 21:02 → EC 01-15 08:25
DX: M54.2 Cervicalgia (principal); J44.9 Chronic obstructive pulmonary disease, unspecified; Z87.891 Personal history of nicotine dependence; Z88.0 Allergy status to penicillin; Z88.6 Allergy status to analgesic agent
CPT/HCPCS: 36415 ×2; 80053; 84484; 85025; 86140; 87040 ×2; 72127; 99283; 96374; 96376; J2270 ×2; Q9967

== ENCOUNTER 2022-01-30 13:27 | Inpatient (IN) | payer MEDICARE, OTHER ==
[2022-01-30 14:35] LABS: Albumin 3.8 g/dL (3.5-5.0); Calcium 8.4 mg/dL (8.4-10.2); Potassium 4.1 mmol/L (3.5-5.1); Total Bilirubin 0.8 mg/dL (0.2-1.3); Total Protein 6.9 g/dL (6.3-8.2)
[2022-01-30] MEDS ORDERED: MORPHINE SULFATE 4 MG/ML SYRINGE IVP STA (14:36)
[2022-01-30 14:43] LABS: HCT 31.7 % (34.0-46.0); HGB 10.9 gm/dL (11.4-16.0); MCHC 34.3 g/dL (31.0-37.0); MCV 90.4 fL (80.0-100.0); Platelet Count 125 k/uL (150-450); WBC 3.3 k/uL (3.8-10.6)
[2022-01-30] MEDS ORDERED: SODIUM CHLORIDE 0.9% 1,000 ML IV STA (15:12)
[2022-01-30 15:46] LABS: Band Neutrophils % 8 %; Basophils # (M) 0.03 k/uL (0-0.2); Eosinophils # (M) 0.07 k/uL (0-0.7); Lymphocytes # (M) 0.43 k/uL (1.0-4.8); Monocytes # (M) 0.36 k/uL (0-1.0); Neutrophils % (M) 65 %; Nucleated Red Blood Cells 0 /100 WBC (0-0); Total Cells Counted 100
[2022-01-30 15:47] LABS: RBC Morphology Normal
--- NOTE | 2022-01-30 15:49 | ED ---
General Adult HPI - General Chief complaint: Nausea/Vomiting/Diarrhea Stated complaint: diarrhea Time Seen by Provider: 01/30/22 13:35 Source: patient, EMS Mode of arrival: EMS Limitations: no limitations - History of Present Illness Initial comments: is a 71-year-old female who presents to the emergency department with a chief complaint of lower abdominal pain and diarrhea 2 days. Patient is somewhat of a poor historian. Patient reports the pain started when she was at her home watching TV. The pain is constant and has progressively worsened. Patient reports that she feels like she has to have a bowel movement with any movement. She cannot recall many of the diarrhea she has had. She cannot recall if there is any different smell or blood in the diarrhea. She denies fever, chills, worsening shortness of breath, chest pain, nausea, vomiting, dysuria. She does note that she was recently on an IV antibiotic for a bone infection which she reports was given to her at her short-term assisted living with completion of antibiotic use 1-2 weeks ago. - Related Data Home Medications Medication Instructions Recorded Confirmed Raloxifene [Evista] 60 mg PO DAILY 02/07/15 01/30/22 Sertraline HCl [Zoloft] 200 mg PO DAILY 02/07/15 01/30/22 risperiDONE [RisperDAL] 2 mg PO HS 04/05/15 01/30/22 Ascorbic Acid [Vitamin C] 500 mg PO DAILY 01/14/20 01/30/22 busPIRone HCl [Buspar] 10 mg PO BID PRN 01/14/20 01/30/22 traZODone HCL 100 mg PO HS 01/14/20 01/30/22 Naproxen 500 mg PO BID PRN 03/07/21 01/30/22 Cholecalciferol [Vitamin D3 (25 25 mcg PO DAILY 12/16/21 01/30/22 Mcg = 1000 Iu)] Dicyclomine HCl 10 mg PO QID PRN 12/16/21 01/30/22 Ergocalciferol (Vitamin D2) 1,250 mcg PO TH 12/16/21 01/30/22 [Drisdol (50,000 Iu)] Levothyroxine Sodium [Synthroid] 100 mcg PO HS 12/16/21 01/30/22 Miami-3 Fatty Acids [Miami-3] 1,000 mg PO DAILY 12/16/21 01/30/22 Atorvastatin [Lipitor] 20 mg PO HS 01/14/22 01/30/22 Omeprazole 20 mg PO DAILY 01/14/22 01/30/22 Albuterol Sulfate [Ventolin HFA] 2 puff INHALATION RT-Q6H PRN 01/30/22 01/30/22 Pantoprazole Sodium 40 mg PO DAILY 01/30/22 01/30/22 Previous Rx's Medication Instructions Recorded Metoprolol Tartrate [Lopressor] 25 mg PO HS #90 tab 12/20/21 Metoprolol Tartrate [Lopressor] 50 mg PO DAILY #90 tab 12/20/21 amLODIPine [Norvasc] 10 mg PO DAILY #90 tab 12/20/21 hydroCHLOROthiazide [Hydrodiuril] 25 mg PO DAILY #90 tab 12/20/21 lisinopriL [Zestril] 20 mg PO BID #180 tab 12/20/21 oxyCODONE-APAP 7.5-325MG [Percocet 1 tab PO Q6H PRN #12 tab 12/24/21 7.5-325 mg] Allergies Allergy/AdvReac Type Severity Reaction Status Date / Time Penicillins Allergy Dyspnea Verified 01/30/22 16:12 aspirin AdvReac Nausea & Verified 01/30/22 16:12 Vomiting Review of Systems ROS Statement: Those systems with pertinent positive or pertinent negative responses have been documented in the HPI. ROS Other: All systems not noted in ROS Statement are negative. Past Medical History Past Medical History: Cancer, COPD, Fibromyalgia, Osteoarthritis (OA), Pneumonia, Rheumatoid Arthritis (RA) Additional Past Medical History / Comment(s): Pt tested covid + 03/07/21 [facility] ER. 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 L hand and ulcer on L wrist History of Any Multi-Drug Resistant Organisms: None Reported Past Surgical History: Back Surgery, Hysterectomy, Joint Replacement, Orthopedic Surgery Additional Past Surgical History / Comment(s): L partial nephrectomy, R wrist surgery for fracture, 3 L spine surgeries, 2 cervical surgeries, L hemiarthroplasty d/t fracture, colonoscopy Past Anesthesia/Blood Transfusion Reactions: No Reported Reaction Past Psychological History: Depression Smoking Status: Former smoker Past Alcohol Use History: None Reported Past Drug Use History: None Reported - Past Family History Father Family Medical History: Cancer Additional Family Medical History / Comment(s): LUNG CA Mother Family Medical History: Osteoarthritis (OA) General Exam Limitations: no limitations General appearance: alert, in no apparent distress Head exam: Present: atraumatic, normocephalic, normal inspection Eye exam: Present: normal appearance, PERRL, EOMI. Absent: scleral icterus, conjunctival injection, periorbital swelling Respiratory exam: Present: normal lung sounds bilaterally. Absent: respiratory distress, wheezes, rales, rhonchi, stridor Cardiovascular Exam: Present: regular rate, normal rhythm, normal heart sounds. Absent: systolic murmur, diastolic murmur, rubs, gallop, clicks GI/Abdominal exam: Present: soft, tenderness (Left lower quadrant, mild RUQ), normal bowel sounds. Absent: distended, guarding, rebound, rigid Neurological exam: Present: alert, oriented X3, CN II-XII intact Psychiatric exam: Present: normal affect, normal mood Skin exam: Present: warm, dry, intact, normal color. Absent: rash Course Vital Signs 01/30/22 01/30/22 01/30/22 13:28 15:13 15:36 Temperature 97.8 F Pulse Rate 90 67 Respiratory 18 18 Rate Blood Pressure 114/64 94/56 113/58 O2 Sat by Pulse 100 98 Oximetry 01/30/22 17:12 Temperature Pulse Rate 69 Respiratory 18 Rate Blood Pressure 140/58 O2 Sat by Pulse 98 Oximetry Medical Decision Making - Medical Decision Making Patient is a 71-year-old who presents with lower abdominal pain and diarrhea 2 days. Thorough history and examination were performed. Patient is afebrile. Labs are relatively unremarkable. Patient is positive for C. diff. CT of the abdomen and pelvis without contrast reveals of fluid-filled colon was slightly thickened wall, colitis cannot be excluded. The gallbladder is markedly distended with dependent density within likely representing cholelithiasis, mild acute cholecystitis cannot be excluded. The liver is enlarged with slightly nodular outline and enlarged spleen. I did order morphine for severe pain however patient was found to have low blood pressure on repeat measurement. Morphine was not given she was placed in Trendelenburg position. Patient received saline bolus and 25 mcg of Fentanyl was given. Blood pressure improved and is stable. Contact precautions were ordered. On reevaluation patient is no longer in pain. Case discussed with Dr. Lord. Patient will be admitted to Dr. Lord with consult to general surgery for further evaluation and management. Lactate, blood cultures, oral vancomycin, IV Levofloxacin, and IV Flagyl ordered. Results discussed with patient and patient's daughter. They verbalize understanding and are agreeable to plan. Dr. Miller is my attending. - Lab Data Result diagrams: 01/30/22 14:06 01/30/22 14:06 Lab Results 01/30/22 01/30/22 01/30/22 Range/Units 14:06 14:06 14:06 WBC 3.3 L (3.8-10.6) k/uL RBC 3.50 L (3.80-5.40) m/uL Hgb 10.9 L (11.4-16.0) gm/dL Hct 31.7 L (34.0-46.0) % MCV 90.4 (80.0-100.0) fL MCH 31.0 (25.0-35.0) pg MCHC 34.3 (31.0-37.0) g/dL RDW 15.0 (11.5-15.5) % Plt Count 125 L (150-450) k/uL MPV 10.0 Neutrophils % (Manual) 65 % Band Neuts % (Manual) 8 % Lymphocytes % (Manual) 13 % Monocytes % (Manual) 11 % Eosinophils % (Manual) 2 % Basophils % (Manual) 1 % Neutrophils # (Manual) 2.40 (1.3-7.7) k/uL Lymphocytes # (Manual) 0.43 L (1.0-4.8) k/uL Monocytes # (Manual) 0.36 (0-1.0) k/uL Eosinophils # (Manual) 0.07 (0-0.7) k/uL Basophils # (Manual) 0.03 (0-0.2) k/uL Nucleated RBCs 0 (0-0) /100 WBC Manual Slide Review Performed RBC Morphology Normal Sodium 132 L (137-145) mmol/L Potassium 4.1 (3.5-5.1) mmol/L Chloride 103 (98-107) mmol/L Carbon Dioxide 17 L (22-30) mmol/L Anion Gap 12 mmol/L BUN 26 H (7-17) mg/dL Creatinine 1.31 H (0.52-1.04) mg/dL Est GFR (CKD-EPI)AfAm 47 (>60 ml/min/1.73 sqM) Est GFR (CKD-EPI)NonAf 40 (>60 ml/min/1.73 sqM) Glucose 107 H (74-99) mg/dL Plasma Lactic Acid Brennan 0.9 (0.7-2.0) mmol/L Calcium 8.4 (8.4-10.2) mg/dL Total Bilirubin 0.8 (0.2-1.3) mg/dL AST 53 H (14-36) U/L ALT 23 (4-34) U/L Alkaline Phosphatase 66 (38-126) U/L Total Protein 6.9 (6.3-8.2) g/dL Albumin 3.8 (3.5-5.0) g/dL Lipase 35 (23-300) U/L C. difficile (EIA) Intrp (Negative) Coronavirus (PCR) (Not Detectd) 01/30/22 01/30/22 Range/Units 14:30 15:07 WBC (3.8-10.6) k/uL RBC (3.80-5.40) m/uL Hgb (11.4-16.0) gm/dL Hct (34.0-46.0) % MCV (80.0-100.0) fL MCH (25.0-35.0) pg MCHC (31.0-37.0) g/dL RDW (11.5-15.5) % Plt Count (150-450) k/uL MPV Neutrophils % (Manual) % Band Neuts % (Manual) % Lymphocytes % (Manual) % Monocytes % (Manual) % Eosinophils % (Manual) % Basophils % (Manual) % Neutrophils # (Manual) (1.3-7.7) k/uL Lymphocytes # (Manual) (1.0-4.8) k/uL Monocytes # (Manual) (0-1.0) k/uL Eosinophils # (Manual) (0-0.7) k/uL Basophils # (Manual) (0-0.2) k/uL Nucleated RBCs (0-0) /100 WBC Manual Slide Review RBC Morphology Sodium (137-145) mmol/L Potassium (3.5-5.1) mmol/L Chloride (98-107) mmol/L Carbon Dioxide (22-30) mmol/L Anion Gap mmol/L BUN (7-17) mg/dL Creatinine (0.52-1.04) mg/dL Est GFR (CKD-EPI)AfAm (>60 ml/min/1.73 sqM) Est GFR (CKD-EPI)NonAf (>60 ml/min/1.73 sqM) Glucose (74-99) mg/dL Plasma Lactic Acid Brennan (0.7-2.0) mmol/L Calcium (8.4-10.2) mg/dL Total Bilirubin (0.2-1.3) mg/dL AST (14-36) U/L ALT (4-34) U/L Alkaline Phosphatase (38-126) U/L Total Protein (6.3-8.2) g/dL Albumin (3.5-5.0) g/dL Lipase (23-300) U/L C. difficile (EIA) Intrp Positive A (Negative) Coronavirus (PCR) Not Detected (Not Detectd) Disposition Clinical Impression: Left lower quadrant pain, Cholelithiasis, C. difficile colitis, Diarrhea Disposition: ADMITTED IP TO THIS [facility] Condition: Fair Referrals: Bhavin Sin DO [REFERRING] - 1-2 days Decision Time: 17:12
[2022-01-30] MEDS ORDERED: fentaNYL (PF) 50 MCG/ML 2 ML AMP IVP STA (15:51)
--- NOTE | 2022-01-30 16:14 | CT ---
EXAMINATION TYPE: CT abdomen pelvis wo con DATE OF EXAM: 01/30/2022 COMPARISON: CT dated 02/07/2015 HISTORY: Diarrhea and left lower quadrant abdominal pain. CT DLP: 1142.4 mGycm Automated exposure control for dose reduction was used. TECHNIQUE: Helical acquisition of images was performed from the lung bases through the pelvis. No IV contrast administration. FINDINGS: LUNG BASES: Bilateral basal COPD changes, peripheral reticulations, dependent densities and mild grou ndglass opacities, probably augmented by incomplete lung expansion. Infection cannot be excluded, ple ase correlate clinically. Cardiomegaly. LIVER/GB: Bulky liver with nodular outline and a few tiny calcifications within likely related to chr onic granulomatous infection. No definite hepatic focal lesion by this nonenhanced CT scan. Dependent densities are seen within the gallbladder, likely representing calculi. No pericholecystic fluid or fat stranding to suggest acute cholecystitis. Slightly dilated CBD measuring up to 8mm yet suboptimal ly visualized due to artifacts. Recommend precautionary correlation with bilirubin level. PANCREAS: Grossly unremarkable SPLEEN: Enlarged measuring 14.5 cm in AP dimension with scattered tiny calcifications. ADRENALS: No significant abnormality is seen. KIDNEYS: Dense calcification/material is seen at the lower pole of the left kidney, stable with adjac ent surgical clips, suboptimally assessed. No obvious hydroureter or hydronephrosis. No gross renal l esion by this unenhanced CT scan. FREE AIR: No free air is visualized RETROPERITONEAL ADENOPATHY: No pathologically enlarged lymph nodes. REPRODUCTIVE ORGANS: Suspected previous hysterectomy. No gross adnexal mass. URINARY BLADDER: Partially obscured by the artifacts from the left hip prosthesis. Grossly unremarka ble. PELVIC ADENOPATHY: No pathologically enlarged lymph nodes. OSSEOUS STRUCTURES: Left total hip arthroplasty. Diffuse osteopenia. Previous lower thoracic and lum bar fixation causing beam hardening artifacts on adjacent structures. Degenerative changes of the lum bar spine. Posterior spinal canal decompression is also noted in the lumbar spine. BOWEL: Unremarkable nondistended stomach, duodenum and small bowel. Scattered colonic diverticulosis without convincing evidence of acute diverticulitis. Fluid-filled colon with slightly thickened wall which may suggest colitis, please correlate clinically and with stool analysis results. OTHER: Scattered arterial atherosclerotic calcifications. No sizable ascites. IMPRESSION: 1. Fluid-filled colon with slightly thickened wall, colitis cannot be excluded, please correlate clin ically and with stool analysis results. 2. Markedly distended gallbladder with dependent density within likely representing cholelithiasis. M ild acute cholecystitis cannot be excluded, please correlate clinically. 3. Enlarged liver with slightly nodular outline and enlarged spleen, please correlate with liver func tion tests and hepatic viral serology. Other incidental findings as described above.
[2022-01-30] MEDS ORDERED: NALOXONE 0.4 MG/ML 1 ML VIAL IV PRN (19:25)
[2022-01-30] MEDS: metroNIDAZOLE-NS PMX 500 MG in SALINE 1 100ML.BAG IVPB SCH (20:38)
[2022-01-30] MEDS ORDERED: LEVOFLOXACIN 750MG-D5W PMX 750 MG in DEXTROSE/WATER 1 150ML.BAG IVPB ONE (21:00)
[2022-01-30] MEDS: oxyCODONE-APAP 7.5-325MG 1 EACH TAB PO PRN (23:43)
[2022-01-30] MEDS: VANCOMYCIN 125 MG CAPSULE PO SCH (23:44)
[2022-01-31] MEDS: metroNIDAZOLE-NS PMX 500 MG in SALINE 1 100ML.BAG IVPB SCH ×2 (02:48→07:38)
[2022-01-31] MEDS: oxyCODONE-APAP 7.5-325MG 1 EACH TAB PO PRN ×3 (05:43→19:10)
[2022-01-31] MEDS: VANCOMYCIN 125 MG CAPSULE PO SCH ×4 (07:41→21:38)
[2022-01-31 11:33] LABS: ALT 23 U/L (4-34); AST 46 U/L (14-36); African American GFR (CKD) 61 (>60 ml/min/1.73 sqM); Albumin 3.6 g/dL (3.5-5.0); Albumin/Globulin Ratio 1.2; Alkaline Phosphatase 75 U/L (38-126); Anion Gap 12 mmol/L; Blood Urea Nitrogen 22 mg/dL (7-17); Calcium 8.5 mg/dL (8.4-10.2); Carbon Dioxide 17 mmol/L (22-30); Chloride 108 mmol/L (98-107); Globulin 3.1 g/dL; Glucose 97 mg/dL (74-99); Non-African American GFR(CKD) 53 (>60 ml/min/1.73 sqM); Potassium 4.2 mmol/L (3.5-5.1); Sodium 137 mmol/L (137-145); Total Bilirubin 0.8 mg/dL (0.2-1.3); Total Protein 6.7 g/dL (6.3-8.2)
[2022-01-31 11:35] LABS: HCT 33.2 % (34.0-46.0); HGB 10.6 gm/dL (11.4-16.0); Hypochromasia Slight; MCH 30.4 pg (25.0-35.0); MCV 94.8 fL (80.0-100.0); Mean Platelet Volume 10.5; Platelet Count 106 k/uL (150-450); RDW 15.1 % (11.5-15.5); WBC 4.4 k/uL (3.8-10.6)
--- NOTE | 2022-01-31 11:35 | P.GSCN ---
History of Present Illness Consult date: 01/31/22 History of present illness: CHIEF COMPLAINT: Abdominal pain with diarrhea HISTORY OF PRESENT ILLNESS: This is a 71-year-old female who presented with abdominal pain and diarrhea 2 days. Patient's reports her pain is on the right side of the abdomen and the lower left. Patient was found to have evidence of C. diff colitis. She is currently on oral vancomycin. She had a computed tomography scan of the abdomen and pelvis showed fluid-filled colon with slightly thickened wall colitis cannot be excluded. As well as markedly distended gallbladder with dependent density was in likely representing cholelithiasis. Mild acute cholecystitis cannot be excluded. Patient is afebrile. White count is normal. Patient's abdominal surgical history includes prior left partial nephrectomy for renal cancer and hysterectomy. Patient seen and examined with Dr. mcdonnell PAST MEDICAL HISTORY: Renal cancer status post left partial nephrectomy, COPD, Fibromyalgia, Oste oarthritis (OA), Pneumonia, Rheumatoid Arthritis (RA), hepatitis C status post treatment, hypothyroidism, migraines PAST SURGICAL HISTORY: Hysterectomy, left partial nephrectomy MEDICATIONS: See list. ALLERGIES: See list. SOCIAL HISTORY: No illicit drug use. REVIEW OF SYSTEMS: CONSTITUTIONAL: Denies fever or chills. HEENT: Denies blurred vision, vision changes, or eye pain. Denies hemoptysis CARDIOVASCULAR: Denies chest pain or pressure. RESPIRATORY: No shortness of breath. GASTROINTESTINAL: See HPI for pertinent findings HEMATOLOGIC: Denies bleeding disorders. GENITOURINARY: Denies any blood in urine or increased urinary frequency. SKIN: Denies pruitis. Denies rash. PHYSICAL EXAM: VITAL SIGNS: Reviewed GENERAL: Well-developed in no acute distress. HEENT: No sclera icterus. Extraocular movements grossly intact. Moist buccal mucosa. Head is atraumatic, normocephalic. No nasal drainage. ABDOMEN: Soft. Nondistended. Tenderness with palpation of the right upper quadrant, right side of abdomen and lower abdomen NEUROLOGIC: Alert and oriented. Cranial nerves II through XII grossly intact. LABORATORY DATA: WBC is 3.3 hemoglobin 10.9 platelet 125 Sodium 132 potassium 4.1 creatinine is 1.31 Stool for C. diff is positive COVID-19 not detected AST 53 ALT 23 lipase 35 IMAGING: Computed tomography scan abdomen and pelvis demonstrates fluid-filled colon with slightly thickened wall, colitis cannot be excluded, please correlate clinically and with stool analysis results. Markedly distended gallbladder with dependent density was in likely represented cholelithiasis. Mild acute cholecystitis cannot be excluded. Enlarged liver with slightly nodular outline an enlarged spleen. ASSESSMENT: 1. Abdominal pain with diarrhea 2. C. diff colitis 3. Distended gallbladder with cholelithiasis PLAN: -Start clear liquid diet -Continue IV fluids -Continue treatment for C. diff colitis -Continue supportive care -No surgical intervention planned at this time -Continue to monitor Thank you for this consultation Physician Circulation Clerk note has been reviewed by physician. Signing provider agrees with the documented findings, assessment, and plan of care. Past Medical History Past Medical History: Cancer, COPD, Fibromyalgia, Osteoarthritis (OA), Pneumonia, Rheumatoid Arthritis (RA) Additional Past Medical History / Comment(s): Pt tested covid + 03/07/21 [facility] ER. 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 L hand and ulcer on L wrist History of Any Multi-Drug Resistant Organisms: None Reported Past Surgical History: Back Surgery, Hysterectomy, Joint Replacement, Orthopedic Surgery Additional Past Surgical History / Comment(s): L partial nephrectomy, R wrist surgery for fracture, 3 L spine surgeries, 2 cervical surgeries, L hemiarthroplasty d/t fracture, colonoscopy Past Anesthesia/Blood Transfusion Reactions: No Reported Reaction Past Psychological History: Depression Additional Psychological History / Comment(s): Pt resides alone. She uses a walker to ambulate. She does not drive, her braeden drives her places. Smoking Status: Former smoker Past Alcohol Use History: None Reported Additional Past Alcohol Use History / Comment(s): Pt started smoking in 1962 and quit in 2019. She denied any alcohol use. Past Drug Use History: None Reported Additional Drug Use History / Comment(s): Pt denied any drug use - Past Family History Father Family Medical History: Cancer Additional Family Medical History / Comment(s): LUNG CA Mother Family Medical History: Osteoarthritis (OA) Medications and Allergies Home Medications Medication Instructions Recorded Confirmed Type Raloxifene [Evista] 60 mg PO DAILY 02/07/15 01/30/22 History Sertraline HCl [Zoloft] 200 mg PO DAILY 02/07/15 01/30/22 History risperiDONE [RisperDAL] 2 mg PO HS 05/07/15 03/03/22 History Ascorbic Acid [Vitamin C] 500 mg PO DAILY 01/14/20 01/30/22 History busPIRone HCl [Buspar] 10 mg PO BID PRN 01/14/20 01/30/22 History traZODone HCL 100 mg PO HS 01/14/20 01/30/22 History Naproxen 500 mg PO BID PRN 03/07/21 01/30/22 History Cholecalciferol [Vitamin D3 (25 25 mcg PO DAILY 12/16/21 01/30/22 History Mcg = 1000 Iu)] Dicyclomine HCl 10 mg PO QID PRN 12/16/21 01/30/22 History Ergocalciferol (Vitamin D2) 1,250 mcg PO TH 12/16/21 01/30/22 History [Drisdol (50,000 Iu)] Levothyroxine Sodium [Synthroid] 100 mcg PO HS 12/16/21 01/30/22 History [place]-3 Fatty Acids [[place]-3] 1,000 mg PO DAILY 12/16/21 01/30/22 History Metoprolol Tartrate [Lopressor] 25 mg PO HS #90 tab 12/20/21 01/30/22 Rx Metoprolol Tartrate [Lopressor] 50 mg PO DAILY #90 tab 12/20/21 01/30/22 Rx amLODIPine [Norvasc] 10 mg PO DAILY #90 tab 12/20/21 01/30/22 Rx hydroCHLOROthiazide [Hydrodiuril] 25 mg PO DAILY #90 tab 12/20/21 01/30/22 Rx lisinopriL [Zestril] 20 mg PO BID #180 tab 12/20/21 01/30/22 Rx oxyCODONE-APAP 7.5-325MG [Percocet 1 tab PO Q6H PRN #12 tab 12/24/21 01/30/22 Rx 7.5-325 mg] Atorvastatin [Lipitor] 20 mg PO HS 01/14/22 01/30/22 History Omeprazole 20 mg PO DAILY 01/14/22 01/30/22 History Albuterol Sulfate [Ventolin HFA] 2 puff INHALATION RT-Q6H PRN 01/30/22 01/30/22 History Pantoprazole Sodium 40 mg PO DAILY 01/30/22 01/30/22 History Allergies Allergy/AdvReac Type Severity Reaction Status Date / Time Penicillins Allergy Dyspnea Verified 01/30/22 16:12 aspirin AdvReac Nausea & Verified 01/30/22 16:12 Vomiting morphine AdvReac Hallucinati Verified 01/30/22 19:48 ons Surgical - Exam Vital Signs Temp Pulse Resp BP Pulse Ox 97.8 F 90 18 114/64 100 01/30/22 13:28 01/30/22 13:28 01/30/22 13:28 01/30/22 13:28 01/30/22 13:28 Results - Labs 01/30/22 14:06 01/30/22 14:06 Abnormal Lab Results - Last 24 Hours (Table) 01/30/22 01/30/22 01/30/22 Range/Units 14:06 14:06 14:30 WBC 3.3 L (3.8-10.6) k/uL RBC 3.50 L (3.80-5.40) m/uL Hgb 10.9 L (11.4-16.0) gm/dL Hct 31.7 L (34.0-46.0) % Plt Count 125 L (150-450) k/uL Lymphocytes # (Manual) 0.43 L (1.0-4.8) k/uL Sodium 132 L (137-145) mmol/L Carbon Dioxide 17 L (22-30) mmol/L BUN 26 H (7-17) mg/dL Creatinine 1.31 H (0.52-1.04) mg/dL Glucose 107 H (74-99) mg/dL AST 53 H (14-36) U/L C. difficile (EIA) Intrp Positive A (Negative) Microbiology - Last 24 Hours (Table) 01/30/22 14:30 Stool Culture - Preliminary Stool Diabetes panel 01/30/22 Range/Units 14:06 Sodium 132 L (137-145) mmol/L Potassium 4.1 (3.5-5.1) mmol/L Chloride 103 (98-107) mmol/L Carbon Dioxide 17 L (22-30) mmol/L BUN 26 H (7-17) mg/dL Creatinine 1.31 H (0.52-1.04) mg/dL Glucose 107 H (74-99) mg/dL Calcium 8.4 (8.4-10.2) mg/dL AST 53 H (14-36) U/L ALT 23 (4-34) U/L Alkaline Phosphatase 66 (38-126) U/L Total Protein 6.9 (6.3-8.2) g/dL Albumin 3.8 (3.5-5.0) g/dL Calcium panel 01/30/22 Range/Units 14:06 Calcium 8.4 (8.4-10.2) mg/dL Albumin 3.8 (3.5-5.0) g/dL Pituitary panel 01/30/22 Range/Units 14:06 Sodium 132 L (137-145) mmol/L Potassium 4.1 (3.5-5.1) mmol/L Chloride 103 (98-107) mmol/L Carbon Dioxide 17 L (22-30) mmol/L BUN 26 H (7-17) mg/dL Creatinine 1.31 H (0.52-1.04) mg/dL Glucose 107 H (74-99) mg/dL Calcium 8.4 (8.4-10.2) mg/dL Adrenal panel 01/30/22 Range/Units 14:06 Sodium 132 L (137-145) mmol/L Potassium 4.1 (3.5-5.1) mmol/L Chloride 103 (98-107) mmol/L Carbon Dioxide 17 L (22-30) mmol/L BUN 26 H (7-17) mg/dL Creatinine 1.31 H (0.52-1.04) mg/dL Glucose 107 H (74-99) mg/dL Calcium 8.4 (8.4-10.2) mg/dL Total Bilirubin 0.8 (0.2-1.3) mg/dL AST 53 H (14-36) U/L ALT 23 (4-34) U/L Alkaline Phosphatase 66 (38-126) U/L Total Protein 6.9 (6.3-8.2) g/dL Albumin 3.8 (3.5-5.0) g/dL
[2022-01-31] MEDS ORDERED: busPIRone HCl 10 MG TAB PO PRN (11:37)
[2022-01-31] MEDS ORDERED: ALBUTEROL NEBULIZED 2.5 MG/3 ML INHALATION PRN (11:37)
[2022-01-31] MEDS ORDERED: oxyCODONE-APAP 7.5-325MG 1 EACH TAB PO PRN (11:37)
[2022-01-31 12:22] VITALS: BMI 31.6
[2022-01-31] MEDS: RALOXIFENE 60 MG TAB PO SCH (12:36)
[2022-01-31] MEDS: METOPROLOL TARTRATE 50 MG TAB PO SCH (12:36)
[2022-01-31] MEDS: SERTRALINE 100 MG TAB PO SCH (12:36)
[2022-01-31] MEDS: lisinopriL 20 MG TAB PO SCH (12:36)
[2022-01-31 12:38] LABS: Band Neutrophils % 13 %; Eosinophils # (M) 0.13 k/uL (0-0.7); Lymphocytes # (M) 0.62 k/uL (1.0-4.8); Monocytes # (M) 0.31 k/uL (0-1.0); Neutrophils % (M) 64 %; Nucleated Red Blood Cells 0 /100 WBC (0-0); Total Cells Counted 200
[2022-01-31 12:40] LABS: Anisocytosis (M) Present
--- NOTE | 2022-01-31 13:24 | P.HPIM ---
History of Present Illness H&P Date: 01/31/22 This is a pleasant 71-year-old female who presented to the emergency department with lower abdominal pain and even experiencing some nausea and vomiting and multiple episodes of diarrhea that have been ongoing for the last 2 days. Patient recently had been on IV antibiotic therapy at a nursing facility for STO myelitis of the right wrist that she states was done approximately 1-2 weeks ago. She started developing increasing abdominal pain and multiple episodes of diarrhea and intolerance to diet. Patient did not report any bleeding noted in the stool. Patient was tested for C. diff in the ER and was positive. Patient also had CT abdomen and pelvis without contrast which revealed fluid-filled colon with slightly thickened davis, colitis cannot be excluded, markedly distended gallbladder with dependent density within likely representing cholelithiasis, mild acute cholecystitis cannot be excluded, and large liver with slightly nodular outline an enlarged spleen, unremarkable nondistended stomach duodenum and small bowel scattered colonic diverticulosis without convincing evidence of diverticulitis. On admission to the ER labs revealed a WBC of 3.3, hemoglobin 10.9, platelets 125, sodium 132, potassium 4.1, BUN 26, creatinine 1.31, plasma lactic acid 0.9, AST 53, ALT 23, C. diff was positive, which was negative, lipase 35. Patient was started on IV antibiotics in the form of Levaquin and Flagyl along with oral Vanco and general surgery was consulted. Will consult infectious disease and appreciate input and recommendations. Review Of Systems: Constitutional: No fever, no chills, no night sweats. No weight change. No weakness, fatigue or lethargy. No daytime sleepiness. EENT: No headache. No blurred vision or double vision, no loss of vision. No loss of Hearing, no ringing in the ears, no dizziness. No nasal drainage or congestion. No epistaxis. No sore throat. Lungs: No shortness of breath, cough, no sputum production. No wheezing. Cardiovascular: No chest pain, no lower extremity edema. No palpitations. No paroxysmal nocturnal dyspnea. No orthopnea. No lightheadedness or dizziness. No syncopal episodes. Abdominal: Reports left lower quadrant abdominal pain. Reports nausea, vomiting. Reports multiple episodes of diarrhea. No constipation. No bloody or tarry stools.. Reports loss of appetite. Genitourinary: No dysuria, increased frequency, urgency. No urinary retention. Musculoskeletal: No myalgias. No muscle weakness, no gait dysfunction, no frequent falls. No back pain. No neck pain. Reports Right wrist deformity with multiple surgeries and recent osteomyelitis requiring IV antibiotic therapy Integumentary: No wounds, no lesions. No rash or pruritus. No unusual bruising. No change in hair or nails. Neurologic: No aphasia. No facial droop. No change in mentation. No head injury. No headache. No paralysis. No paresthesia. Psychiatric: No depression. No anxiety. No mood swings. Endocrine: No abnormal blood sugars. No weight change. No excessive sweating or thirst. No cold intolerance. The rest of the 14 point review of systems is negative except for mentioned above Active Medications Albuterol Sulfate (Albuterol Nebulized 2.5 Mg/3 Ml) 2.5 mg INHALATION RT-Q6H PRN PRN Reason: Shortness Of Breath Amlodipine Besylate (Amlodipine 10 Mg Tab) 10 mg PO DAILY [facility] Atorvastatin Calcium (Atorvastatin 20 Mg Tab) 20 mg PO HS [facility] Buspirone HCl (Buspirone Hcl 10 Mg Tab) 10 mg PO BID PRN PRN Reason: Anxiety Levothyroxine Sodium (Levothyroxine 100 Mcg Tab) 100 mcg PO HS [facility] Lisinopril (Lisinopril 20 Mg Tab) 20 mg PO DAILY [facility] Metoprolol Tartrate (Metoprolol Tartrate 25 Mg Tab) 25 mg PO HS [facility] Metoprolol Tartrate (Metoprolol Tartrate 50 Mg Tab) 50 mg PO DAILY [facility] Naloxone HCl (Naloxone 0.4 Mg/Ml 1 Ml Vial) 0.2 mg IV Q2M PRN PRN Reason: Opioid Reversal Oxycodone/Acetaminophen (Oxycodone-Apap 7.5-325mg 1 Each Tab) 1 each PO Q6HR PRN PRN Reason: Pain Last Admin: 01/31/22 05:43 Dose: 1 each Documented by: Oxycodone/Acetaminophen (Oxycodone-Apap 7.5-325mg 1 Each Tab) 1 each PO Q6H PRN PRN Reason: Pain Pantoprazole Sodium (Pantoprazole 40 Mg Tablet) 40 mg PO DAILY [facility] Raloxifene HCl (Raloxifene 60 Mg Tab) 60 mg PO DAILY [facility] Risperidone (Risperidone 2 Mg Tab) 2 mg PO HS [facility] Sertraline HCl (Sertraline 100 Mg Tab) 200 mg PO DAILY [facility] Trazodone HCl (Trazodone Hcl 100 Mg Tab) 100 mg PO HS [facility] Vancomycin HCl (Vancomycin 125 Mg Capsule) 125 mg PO QID [facility]; Protocol Last Admin: 01/31/22 07:41 Dose: 125 mg Documented by: PHYSICAL EXAMINATION: GENERAL: The patient is alert and oriented x4, Well developed, well nourished. Obese HEENT: Pupils are round and equally reacting to light. EOMI. does have scleral icterus. No conjunctival pallor. Normocephalic, atraumatic. No pharyngeal erythema. No thyromegaly. CARDIOVASCULAR: S1 and S2 muffled PULMONARY: diminished breath sounds bilaterally with some scattered rhonchi and crackles noted at the bases. ABDOMEN: soft. Lower left quadrant tenderness on palpation. obese. non- distended, normoactive bowel sounds. No palpable organomegaly. MUSCULOSKELETAL: No joint swelling or deformity. EXTREMITIES: No cyanosis, clubbing, or pedal edema. Right wrist deformity noted recent infection with osteomyelitis with current scabbing and crusting noted in the center of the wrist that was recently draining which required IV antibiotic therapy NEUROLOGICAL: Gross neurological examination did not reveal any focal deficits. Diffuse weakness SKIN: No rashes. Assessment: Abdominal pain with diarrhea C. difficile colitis Mild hyponatremia, most likely hypovolemic secondary to multiple episodes of di arrhea, dehydration Gallbladder distention noted on CT with cholelithiasis, no acute cholecystitis Enlarged spleen measuring approximately 14.5 cm with tiny scattered calcifications COPD, not in acute exacerbation History of renal carcinoma with partial nephrectomy on the left multiple surgeries of the right wrist for fractures, most recently had osteomyelitis and on IV antibiotics at an ECF PICC line History of hepatitis C that was successfully treated with freddy History of osteoarthritis and rheumatoid arthritis History of fibromyalgia Depression GI prophylaxis DVT prophylaxis Full code Plan: Recommend to continue with current medications and oral vancomycin for C. diff colitis. Patient recently had IV antibiotics via PICC in the outpatient setting at an ECF for right wrist osteomyelitis and completed treatment approximately 1- 2 weeks ago. Patient started developing abdominal pain and multiple episodes of diarrhea and was found to be C. diff positive here. General surgery also consulted with no plans for surgical intervention at this time. Will consult infectious disease and appreciate input and recommendations. Patient was started on Levaquin and Flagyl in the ER and this will be discontinued. Again Gen. surgery is consulted and pending. Appropriate home medications will be resumed and will monitor closely. Patient is maintained on gentle IV hydration and will continue as patient was slightly hyponatremic at 132 on admission which has improved at 137 today also kidney functions improving and will repeat labs to monitor closely. The impression and plan of care has been dictated by Laurie Godinez, nurse practitioner as directed. MD Maldonado I have performed a history and examination and MDM of this patient, discussed the same with the dictator, and agree with the dictator's assessment and plan as written ,documented as a scribe. Based on total visit time, I have performed more than 50% of the visit. Total number of minutes spent on this visit, 30 minutes Any additional findings or plans will be noted. Review of Systems Constitutional: Denies chills, Denies fever Ears, nose, mouth and throat: Denies headache, Denies sore throat Cardiovascular: Denies chest pain, Denies shortness of breath Respiratory: Denies cough Gastrointestinal: Reports abdominal pain, Reports bloating, Reports change in bowel habits, Reports diarrhea, Reports excessive gas, Reports loss of appetite, Reports nausea, Reports vomiting Genitourinary: Denies dysuria, Denies hematuria Musculoskeletal: Denies myalgias Integumentary: Denies pruritus, Denies rash Neurological: Denies numbness, Denies weakness Psychiatric: Denies anxiety, Denies depression Endocrine: Denies fatigue, Denies weight change Past Medical History Past Medical History: Cancer, COPD, Fibromyalgia, Osteoarthritis (OA), Pneumonia, Rheumatoid Arthritis (RA) Additional Past Medical History / Comment(s): Pt tested covid + 03/07/21 [facility] ER. 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 L hand and ulcer on L wrist History of Any Multi-Drug Resistant Organisms: None Reported Past Surgical History: Back Surgery, Hysterectomy, Joint Replacement, Orthopedic Surgery Additional Past Surgical History / Comment(s): L partial nephrectomy, R wrist surgery for fracture, 3 L spine surgeries, 2 cervical surgeries, L hemiarthroplasty d/t fracture, colonoscopy Past Anesthesia/Blood Transfusion Reactions: No Reported Reaction Past Psychological History: Depression Additional Psychological History / Comment(s): Pt resides alone. She uses a walker to ambulate. She does not drive, her braeden drives her places. Smoking Status: Former smoker Past Alcohol Use History: None Reported Additional Past Alcohol Use History / Comment(s): Pt started smoking in 1962 and quit in 2019. She denied any alcohol use. Past Drug Use History: None Reported Additional Drug Use History / Comment(s): Pt denied any drug use - Past Family History Father Family Medical History: Cancer Additional Family Medical History / Comment(s): LUNG CA Mother Family Medical History: Osteoarthritis (OA) Medications and Allergies Home Medications Medication Instructions Recorded Confirmed Type Raloxifene [Evista] 60 mg PO DAILY 02/07/15 01/30/22 History Sertraline HCl [Zoloft] 200 mg PO DAILY 02/07/15 01/30/22 History risperiDONE [RisperDAL] 2 mg PO HS 04/05/15 01/30/22 History Ascorbic Acid [Vitamin C] 500 mg PO DAILY 01/14/20 01/30/22 History busPIRone HCl [Buspar] 10 mg PO BID PRN 01/14/20 01/30/22 History traZODone HCL 100 mg PO HS 01/14/20 01/30/22 History Naproxen 500 mg PO BID PRN 03/07/21 01/30/22 History Cholecalciferol [Vitamin D3 (25 25 mcg PO DAILY 12/16/21 01/30/22 History Mcg = 1000 Iu)] Dicyclomine HCl 10 mg PO QID PRN 12/16/21 01/30/22 History Ergocalciferol (Vitamin D2) 1,250 mcg PO TH 12/16/21 01/30/22 History [Drisdol (50,000 Iu)] Levothyroxine Sodium [Synthroid] 100 mcg PO HS 12/16/21 01/30/22 History [place]-3 Fatty Acids [[place]-3] 1,000 mg PO DAILY 12/16/21 01/30/22 History Metoprolol Tartrate [Lopressor] 25 mg PO HS #90 tab 12/20/21 01/30/22 Rx Metoprolol Tartrate [Lopressor] 50 mg PO DAILY #90 tab 12/20/21 01/30/22 Rx amLODIPine [Norvasc] 10 mg PO DAILY #90 tab 12/20/21 01/30/22 Rx hydroCHLOROthiazide [Hydrodiuril] 25 mg PO DAILY #90 tab 12/20/21 01/30/22 Rx lisinopriL [Zestril] 20 mg PO BID #180 tab 12/20/21 01/30/22 Rx oxyCODONE-APAP 7.5-325MG [Percocet 1 tab PO Q6H PRN #12 tab 12/24/21 01/30/22 Rx 7.5-325 mg] Atorvastatin [Lipitor] 20 mg PO HS 01/14/22 01/30/22 History Omeprazole 20 mg PO DAILY 01/14/22 01/30/22 History Albuterol Sulfate [Ventolin HFA] 2 puff INHALATION RT-Q6H PRN 01/30/22 01/30/22 History Pantoprazole Sodium 40 mg PO DAILY 01/30/22 01/30/22 History Allergies Allergy/AdvReac Type Severity Reaction Status Date / Time Penicillins Allergy Dyspnea Verified 01/30/22 16:12 aspirin AdvReac Nausea & Verified 01/30/22 16:12 Vomiting morphine AdvReac Hallucinati Verified 01/30/22 19:48 ons Physical Exam Vitals: Vital Signs Temp Pulse Pulse Resp BP BP Pulse Ox 01/31/22 08:00 97.8 F 99 18 182/94 99 01/31/22 02:00 97.9 F 72 17 132/44 96 01/30/22 19:38 84 18 134/58 99 01/30/22 17:12 69 18 140/58 98 01/30/22 15:36 113/58 01/30/22 15:13 67 18 94/56 98 01/30/22 13:28 97.8 F 90 18 114/64 100 Intake and Output 01/30/22 01/31/22 01/31/22 22:59 06:59 14:59 Other: # Voids 2 # Bowel Movements 2 Weight 86.183 kg Results CBC & Chem 7: 01/30/22 14:06 01/31/22 10:55 Labs: Abnormal Lab Results - Last 24 Hours (Table) 01/30/22 01/30/22 01/30/22 Range/Units 14:06 14:06 14:30 WBC 3.3 L (3.8-10.6) k/uL RBC 3.50 L (3.80-5.40) m/uL Hgb 10.9 L (11.4-16.0) gm/dL Hct 31.7 L (34.0-46.0) % Plt Count 125 L (150-450) k/uL Lymphocytes # (Manual) 0.43 L (1.0-4.8) k/uL Sodium 132 L (137-145) mmol/L Carbon Dioxide 17 L (22-30) mmol/L BUN 26 H (7-17) mg/dL Creatinine 1.31 H (0.52-1.04) mg/dL Glucose 107 H (74-99) mg/dL AST 53 H (14-36) U/L C. difficile (EIA) Intrp Positive A (Negative) Microbiology - Last 24 Hours (Table) 01/30/22 14:30 Stool Culture - Preliminary Stool Thrombosis Risk Factor Assmnt - DVT/VTE Prophylaxis DVT/VTE Prophylaxis: Pharmacologic Prophylaxis ordered - Choose All That Apply Any of the Below Risk Factors Present?: Yes Each Factor Represents 1 point: Obesity (BMI >25) Other Risk Factors: Yes Each Risk Factor Represents 2 Points: Age 61-74 years Thrombosis Risk Factor Assessment Total Risk Factor Score: 3 Thrombosis Risk Factor Assessment Level: Moderate Risk Assessment and Plan Time with Patient: Greater than 30
[2022-01-31] MEDS: SODIUM CHLORIDE 0.9% 1,000 ML IV SCH (15:02)
[2022-01-31 15:43] LABS: Hepatitis A Antibody IgM Nonreactive (Nonreactive); Hepatitis B Core IgM Nonreactive (Nonreactive); Hepatitis B Surface Antigen Nonreactive (Nonreactive); Hepatitis C IgG Antibody Reactive (Nonreactive)
[2022-01-31] MEDS: LEVOTHYROXINE 100 MCG TAB PO SCH (19:56)
[2022-01-31] MEDS: ATORVASTATIN 20 MG TAB PO SCH (19:56)
[2022-01-31] MEDS: METOPROLOL TARTRATE 25 MG TAB PO SCH (19:56)
[2022-01-31] MEDS: traZODone HCL 100 MG TAB PO SCH (19:56)
[2022-01-31] MEDS: risperiDONE 2 MG TAB PO SCH (19:56)
--- NOTE | 2022-01-31 20:58 | P.CONS ---
History of Present Illness - Reason for Consult Consult date: 01/31/22 - History of Present Illness Patient is a 71-year-old female with did have a history of a chronic deformity to the right upper extremity with a chronic nonhealing wound she was recent diagnosed her with an osteomyelitis and local wound culture positive for MSSA Klebsiella and anaerobes patient did get a PICC line and was advised a 4- week course of IV Rocephin 2 g daily and Flagyl which apparently the patient has completed about a week ago and the patient was subsequent discharged from the long term patient now presenting back to the hospital concerning for abdominal pain which has been mostly lower abdominal area patient describes the pain to be more of a squeezing quality intensity is about 6-7 out of 10 with no radiation patient did have some nausea but no vomiting she also complaining of diarrhea for the last 2 days of multiple loose stools denies any blood or mucus in the stools will be sent to the patient was evaluated by ER physician on arrival to the ER the patient was afebrile patient did have white count of 3.3 did have elevated BUN and creatinine patient did have stool for C. difficile which was positive patient also have a's CT of abdominal pelvis which did shows evidence of fluid-filled colon with slightly thickened wall colitis cannot be excluded mildly distended gallbladder with dependent density likely present cholelithiasis enlarged liver with slightly nodular outline patient was admitted to hospital she was started on oral vancomycin infectious disease consulted for further management of antibiotic therapy Past Medical History Past Medical History: Cancer, COPD, Fibromyalgia, Osteoarthritis (OA), Pneumonia, Rheumatoid Arthritis (RA) Additional Past Medical History / Comment(s): Pt tested covid + 03/07/21 [facility] ER. 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 L hand and ulcer on L wrist History of Any Multi-Drug Resistant Organisms: None Reported Past Surgical History: Back Surgery, Hysterectomy, Joint Replacement, Orthopedic Surgery Additional Past Surgical History / Comment(s): L partial nephrectomy, R wrist surgery for fracture, 3 L spine surgeries, 2 cervical surgeries, L hemiarthroplasty d/t fracture, colonoscopy Past Anesthesia/Blood Transfusion Reactions: No Reported Reaction Past Psychological History: Depression Additional Psychological History / Comment(s): Pt resides alone. She uses a walker to ambulate. She does not drive, her braeden drives her places. Smoking Status: Former smoker Past Alcohol Use History: None Reported Additional Past Alcohol Use History / Comment(s): Pt started smoking in 1962 and quit in 2019. She denied any alcohol use. Past Drug Use History: None Reported Additional Drug Use History / Comment(s): Pt denied any drug use - Past Family History Father Family Medical History: Cancer Additional Family Medical History / Comment(s): LUNG CA Mother Family Medical History: Osteoarthritis (OA) Medications and Allergies Home Medications Medication Instructions Recorded Confirmed Type Raloxifene [Evista] 60 mg PO DAILY 02/07/15 01/30/22 History Sertraline HCl [Zoloft] 200 mg PO DAILY 02/07/15 01/30/22 History risperiDONE [RisperDAL] 2 mg PO HS 04/05/15 01/30/22 History Ascorbic Acid [Vitamin C] 500 mg PO DAILY 01/14/20 01/30/22 History busPIRone HCl [Buspar] 10 mg PO BID PRN 01/14/20 01/30/22 History traZODone HCL 100 mg PO HS 01/14/20 01/30/22 History Naproxen 500 mg PO BID PRN 03/07/21 01/30/22 History Cholecalciferol [Vitamin D3 (25 25 mcg PO DAILY 12/16/21 01/30/22 History Mcg = 1000 Iu)] Dicyclomine HCl 10 mg PO QID PRN 12/16/21 01/30/22 History Ergocalciferol (Vitamin D2) 1,250 mcg PO TH 12/16/21 01/30/22 History [Drisdol (50,000 Iu)] Levothyroxine Sodium [Synthroid] 100 mcg PO HS 12/16/21 01/30/22 History [place]-3 Fatty Acids [[place]-3] 1,000 mg PO DAILY 12/16/21 01/30/22 History Metoprolol Tartrate [Lopressor] 25 mg PO HS #90 tab 12/20/21 01/30/22 Rx Metoprolol Tartrate [Lopressor] 50 mg PO DAILY #90 tab 12/20/21 01/30/22 Rx amLODIPine [Norvasc] 10 mg PO DAILY #90 tab 12/20/21 01/30/22 Rx hydroCHLOROthiazide [Hydrodiuril] 25 mg PO DAILY #90 tab 12/20/21 01/30/22 Rx lisinopriL [Zestril] 20 mg PO BID #180 tab 12/20/21 01/30/22 Rx oxyCODONE-APAP 7.5-325MG [Percocet 1 tab PO Q6H PRN #12 tab 12/24/21 01/30/22 Rx 7.5-325 mg] Atorvastatin [Lipitor] 20 mg PO HS 01/14/22 01/30/22 History Omeprazole 20 mg PO DAILY 01/14/22 01/30/22 History Albuterol Sulfate [Ventolin HFA] 2 puff INHALATION RT-Q6H PRN 01/30/22 01/30/22 History Pantoprazole Sodium 40 mg PO DAILY 01/30/22 01/30/22 History Allergies Allergy/AdvReac Type Severity Reaction Status Date / Time Penicillins Allergy Dyspnea Verified 01/30/22 16:12 aspirin AdvReac Nausea & Verified 01/30/22 16:12 Vomiting morphine AdvReac Hallucinati Verified 01/30/22 19:48 ons Physical Exam Vitals: Vital Signs Temp Pulse Pulse Resp BP BP Pulse Ox 01/31/22 08:00 97.8 F 99 18 182/94 99 01/31/22 02:00 97.9 F 72 17 132/44 96 01/30/22 19:38 84 18 134/58 99 01/30/22 17:12 69 18 140/58 98 01/30/22 15:36 113/58 01/30/22 15:13 67 18 94/56 98 Intake and Output 01/30/22 01/31/22 01/31/22 22:59 06:59 14:59 Intake Total 100 Balance 100 Intake: Intake, IV Titration 100 Amount metroNIDAZOLE-NS PMX 500 100 mg In Saline 1 100ml.bag @ 100 mls/hr IVPB Q6H [facility] Rx#:[id number] Other: # Voids 2 # Bowel Movements 2 Weight 86.183 kg 86.183 kg Results CBC & Chem 7: 01/31/22 10:55 01/31/22 10:55 Labs: Abnormal Lab Results - Last 24 Hours (Table) 01/30/22 01/30/22 01/31/22 Range/Units 14:06 14:30 10:55 WBC 3.3 L (3.8-10.6) k/uL RBC 3.50 L 3.50 L (3.80-5.40) m/uL Hgb 10.9 L 10.6 L (11.4-16.0) gm/dL Hct 31.7 L 33.2 L (34.0-46.0) % Plt Count 125 L 106 L (150-450) k/uL Lymphocytes # (Manual) 0.43 L 0.62 L (1.0-4.8) k/uL Chloride (98-107) mmol/L Carbon Dioxide (22-30) mmol/L BUN (7-17) mg/dL Creatinine (0.52-1.04) mg/dL AST (14-36) U/L C. difficile (EIA) Intrp Positive A (Negative) 01/31/22 Range/Units 10:55 WBC (3.8-10.6) k/uL RBC (3.80-5.40) m/uL Hgb (11.4-16.0) gm/dL Hct (34.0-46.0) % Plt Count (150-450) k/uL Lymphocytes # (Manual) (1.0-4.8) k/uL Chloride 108 H (98-107) mmol/L Carbon Dioxide 17 L (22-30) mmol/L BUN 22 H (7-17) mg/dL Creatinine 1.05 H (0.52-1.04) mg/dL AST 46 H (14-36) U/L C. difficile (EIA) Intrp (Negative) Microbiology - Last 24 Hours (Table) 01/30/22 14:30 Stool Culture - Preliminary Stool Assessment and Plan Plan: 1patient presented to hospital with abdominal pain mostly lower abdominal area patient also have significant diarrhea with recent exposure to antibiotic for the right forearm nonhealing wound concern for underlying osteomyelitis culture data were positive for MSSA Klebsiella and anaerobes the patient was on both Rocephin and Flagyl now with evidence of significant diarrhea colitis on the CT and did have stool for C. difficile positive likely symptomatic C. difficile colitis 2-abnormality of the gallbladder seen on the CT however the patient did not have significant tenderness right upper quadrant area and the liver enzymes are normal, clinically not behaving as acute cholecystitis 3-patient will be advised vancomycin 250 milligrams p.o. every 6 hours 4-Questran for symptomatic relief We will follow on clinical condition and cultures to further adjust medication if needed Thank you for this consultation will follow this patient along with you
[2022-02-01] MEDS: oxyCODONE-APAP 7.5-325MG 1 EACH TAB PO PRN (03:38)
[2022-02-01] MEDS: SODIUM CHLORIDE 0.9% 1,000 ML IV SCH ×2 (04:55→20:23)
[2022-02-01 05:58] LABS: African American GFR (CKD) 88 (>60 ml/min/1.73 sqM); Anion Gap 8 mmol/L; Blood Urea Nitrogen 14 mg/dL (7-17); Calcium 8.4 mg/dL (8.4-10.2); Carbon Dioxide 19 mmol/L (22-30); Chloride 110 mmol/L (98-107); Glucose 100 mg/dL (74-99); Magnesium 1.5 mg/dL (1.6-2.3); Non-African American GFR(CKD) 76 (>60 ml/min/1.73 sqM); Potassium 3.9 mmol/L (3.5-5.1); Sodium 137 mmol/L (137-145)
[2022-02-01] MEDS: SERTRALINE 100 MG TAB PO SCH (07:24)
[2022-02-01] MEDS: PANTOPRAZOLE 40 MG TABLET PO SCH (07:24)
[2022-02-01] MEDS: METOPROLOL TARTRATE 50 MG TAB PO SCH (07:24)
[2022-02-01] MEDS: lisinopriL 20 MG TAB PO SCH (07:24)
[2022-02-01] MEDS: amLODIPine 10 MG TAB PO SCH (07:24)
[2022-02-01] MEDS: VANCOMYCIN 125 MG CAPSULE PO SCH ×4 (07:25→20:21)
[2022-02-01] MEDS: RALOXIFENE 60 MG TAB PO SCH (07:25)
[2022-02-01] MEDS ORDERED: Magnesium Replacement Protocol 1 EACH MISC MISCELLANE PRN (07:27)
[2022-02-01] MEDS ORDERED: PANTOPRAZOLE SODIUM 40 MG GRANULE PKT PO SCH (09:00)
[2022-02-01] MEDS: MAGNESIUM SULFATE-D5W PMX 1 GM in DEXTROSE/WATER 1 100ML.BAG IVPB SCH ×2 (09:34→10:31)
--- NOTE | 2022-02-01 11:08 | P.PN ---
Subjective Progress Note Date: 02/01/22 Principal diagnosis: C. diff colitis, cholelithiasis Patient still has complaints of right and left sided abdominal pain. She has some mild abdominal distention. Objective - Vital Signs Vital signs: Vital Signs Temp 98.3 F 02/01/22 08:00 Pulse 93 02/01/22 08:00 Resp 16 02/01/22 08:00 BP 183/102 02/01/22 08:00 Pulse Ox 100 02/01/22 08:48 Intake & Output 01/31/22 02/01/22 02/01/22 18:59 06:59 18:59 Intake Total 100 Balance 100 Weight 86.183 kg Intake: Intake, IV Titration 100 Amount metroNIDAZOLE-NS PMX 500 100 mg In Saline 1 100ml.bag @ 100 mls/hr IVPB Q6H [facility] Rx#:[id number] Other: # Voids 2 # Bowel Movements 2 - Gastrointestinal Gastrointestinal Comment(s): Abdomen soft. There is mild abdominal distention. There is no rebound or guarding. There is some minimal tenderness in the right and left sides of the abdomen. - Labs CBC & Chem 7: 01/31/22 10:55 02/01/22 05:19 Labs: Abnormal Lab Results - Last 24 Hours (Table) 01/31/22 01/31/22 01/31/22 Range/Units 10:55 10:55 10:55 RBC 3.50 L (3.80-5.40) m/uL Hgb 10.6 L (11.4-16.0) gm/dL Hct 33.2 L (34.0-46.0) % Plt Count 106 L (150-450) k/uL Lymphocytes # (Manual) 0.62 L (1.0-4.8) k/uL Chloride 108 H (98-107) mmol/L Carbon Dioxide 17 L (22-30) mmol/L BUN 22 H (7-17) mg/dL Creatinine 1.05 H (0.52-1.04) mg/dL Glucose (74-99) mg/dL Magnesium (1.6-2.3) mg/dL AST 46 H (14-36) U/L Hep C IgG Ab Reactive A (Nonreactive) 02/01/22 Range/Units 05:19 RBC (3.80-5.40) m/uL Hgb (11.4-16.0) gm/dL Hct (34.0-46.0) % Plt Count (150-450) k/uL Lymphocytes # (Manual) (1.0-4.8) k/uL Chloride 110 H (98-107) mmol/L Carbon Dioxide 19 L (22-30) mmol/L BUN (7-17) mg/dL Creatinine (0.52-1.04) mg/dL Glucose 100 H (74-99) mg/dL Magnesium 1.5 L (1.6-2.3) mg/dL AST (14-36) U/L Hep C IgG Ab (Nonreactive) Microbiology - Last 24 Hours (Table) 01/30/22 18:48 Blood Culture - Preliminary Blood No Growth after 24 hours 01/30/22 18:38 Blood Culture - Preliminary Blood No Growth after 24 hours Assessment and Plan Assessment: C. diff colitis. Patient will receive supportive care. Cholelithiasis. This will be addressed as an outpatient once the patient's colitis has resolved.
[2022-02-01 13:41] LABS: Appearance,Urine Clear (Clear); Bilirubin,Urine Negative (Negative); Blood,Urine Negative (Negative); Color,Urine Light Yellow; Glucose,Urine (UA) Negative (Negative); Hyaline Casts,Urine 1 /lpf (0-2); Ketones,Urine Negative (Negative); Leukocyte Esterase,Urine Small (Negative); Nitrite,Urine Negative (Negative); Protein,Urine Negative (Negative); RBC,Urine <1 /hpf (0-5); Specific Gravity,Urine 1.006 (1.001-1.035); Squamous Epithelial Cell,Urine 1 /hpf (0-4); Urobilinogen,Urine <2.0 mg/dL (<2.0); WBC,Urine 7 /hpf (0-5)
--- NOTE | 2022-02-01 15:57 | P.PN ---
Subjective Progress Note Date: 02/01/22 This is a pleasant 71-year-old female who presented to the emergency department with lower abdominal pain and even experiencing some nausea and vomiting and multiple episodes of diarrhea that have been ongoing for the last 2 days. Patient recently had been on IV antibiotic therapy at a nursing facility for STO myelitis of the right wrist that she states was done approximately 1-2 weeks ago. She started developing increasing abdominal pain and multiple episodes of diarrhea and intolerance to diet. Patient did not report any bleeding noted in the stool. Patient was tested for C. diff in the ER and was positive. Patient also had CT abdomen and pelvis without contrast which revealed fluid-filled colon with slightly thickened davis, colitis cannot be excluded, markedly distended gallbladder with dependent density within likely representing cholelithiasis, mild acute cholecystitis cannot be excluded, and large liver with slightly nodular outline an enlarged spleen, unremarkable nondistended s tomach duodenum and small bowel scattered colonic diverticulosis without convincing evidence of diverticulitis. On admission to the ER labs revealed a WBC of 3.3, hemoglobin 10.9, platelets 125, sodium 132, potassium 4.1, BUN 26, creatinine 1.31, plasma lactic acid 0.9, AST 53, ALT 23, C. diff was positive, which was negative, lipase 35. Patient was started on IV antibiotics in the form of Levaquin and Flagyl along with oral Vanco and general surgery was consulted. Will consult infectious disease and appreciate input and recommendations. 02/01/2022 Patient evaluated today resting in bed. She is currently alert x person and time. Thinks she is at 10 and dequindre, but states she is in hospital. Per nursing staff she has had periods of confusion which per family is not her baseline. Continues with episodes of loose stool, C Dif positive on oral vanco. Being followed closely by genery surgery and infectious disease. Gallbladder will be addressed outpatient with gen surgery once C. Dif infection has cleared. Labs today show sodium 137, potassium 3.9, chloride 110, CO2 19, glucose 100, magnesium 1.5 which was replaced and will repeat in the morning. Patient denies abdominal pain during assessment, no tenderness to palpation. Denies dysuria. Due to acute confusion urinalysis was checked which is negative for infection. Review of Systems Constitutional: Denied any fatigue denied any fever. Cardio vascular: denied any chest pain, palpitations Gastrointestinal: denied any nausea, vomiting, Reports diarrhea. Pulmonary: Denied any shortness of breath cough Neurologic denied any new focal deficits All inpatient medications were reviewed and appropriate changes in these medic ations as dictated in the interval history and assessment and plan. PHYSICAL EXAMINATION: GENERAL: The patient is alert and oriented x2-3, Well developed, well nourished. Obese HEENT: Pupils are round and equally reacting to light. EOMI. does have scleral icterus. No conjunctival pallor. Normocephalic, atraumatic. No pharyngeal erythema. No thyromegaly. CARDIOVASCULAR: S1 and S2 muffled PULMONARY: diminished breath sounds bilaterally with some scattered rhonchi and crackles noted at the bases. ABDOMEN: soft. Nontender. obese. non-distended, normoactive bowel sounds. No palpable organomegaly. MUSCULOSKELETAL: No joint swelling or deformity. EXTREMITIES: No cyanosis, clubbing, or pedal edema. Right wrist deformity noted recent infection with osteomyelitis with current scabbing and crusting noted in the center of the wrist that was recently draining which required IV antibiotic therapy NEUROLOGICAL: Gross neurological examination did not reveal any focal deficits. Diffuse weakness SKIN: No rashes. Assessment: Abdominal pain with diarrhea C. difficile colitis Mild hyponatremia, most likely hypovolemic secondary to multiple episodes of diarrhea, dehydration, resolved Gallbladder distention noted on CT with cholelithiasis, no acute cholecystitis Enlarged spleen measuring approximately 14.5 cm with tiny scattered calcifications COPD, not in acute exacerbation History of renal carcinoma with partial nephrectomy on the left multiple surgeries of the right wrist for fractures, most recently had osteomyelitis and on IV antibiotics at an ECF PICC line History of hepatitis C that was successfully treated with rasoni History of osteoarthritis and rheumatoid arthritis History of fibromyalgia Depression GI prophylaxis DVT prophylaxis Full code Plan: Recommend to continue with current medications and oral vancomycin for C. diff colitis. Patient recently had IV antibiotics via PICC in the outpatient setting at an ECF for right wrist osteomyelitis and completed treatment approximately 1- 2 weeks ago. Patient started developing abdominal pain and multiple episodes of diarrhea and was found to be C. diff positive here. General surgery also consulted with no plans for surgical intervention at this time. Appreciate infectious disease consultation. Patient was started on Levaquin and Flagyl in the ER and this will be discontinued. Appropriate home medications will be resumed and will monitor closely. Patient is maintained on gentle IV hydration and will continue as patient was slightly hyponatremic at 132 on admission which has improved at 137 today also kidney functions improving and will repeat labs to monitor closely. Repeat metabolic panel in the morning. Objective - Vital Signs Vital signs: Vital Signs Temp 98.7 F 02/01/22 02:00 Pulse 89 02/01/22 02:00 Resp 17 02/01/22 02:00 BP 170/83 02/01/22 02:00 Pulse Ox 100 02/01/22 02:00 Intake & Output 01/31/22 02/01/22 02/01/22 18:59 06:59 18:59 Intake Total 100 Balance 100 Weight 86.183 kg Intake: Intake, IV Titration 100 Amount metroNIDAZOLE-NS PMX 500 100 mg In Saline 1 100ml.bag @ 100 mls/hr IVPB Q6H [facility] Rx#:[id number] Other: # Voids 2 # Bowel Movements 2 - Labs CBC & Chem 7: 01/31/22 10:55 02/01/22 05:19 Labs: Abnormal Lab Results - Last 24 Hours (Table) 01/31/22 01/31/22 01/31/22 Range/Units 10:55 10:55 10:55 RBC 3.50 L (3.80-5.40) m/uL Hgb 10.6 L (11.4-16.0) gm/dL Hct 33.2 L (34.0-46.0) % Plt Count 106 L (150-450) k/uL Lymphocytes # (Manual) 0.62 L (1.0-4.8) k/uL Chloride 108 H (98-107) mmol/L Carbon Dioxide 17 L (22-30) mmol/L BUN 22 H (7-17) mg/dL Creatinine 1.05 H (0.52-1.04) mg/dL Glucose (74-99) mg/dL Magnesium (1.6-2.3) mg/dL AST 46 H (14-36) U/L Hep C IgG Ab Reactive A (Nonreactive) 02/01/22 Range/Units 05:19 RBC (3.80-5.40) m/uL Hgb (11.4-16.0) gm/dL Hct (34.0-46.0) % Plt Count (150-450) k/uL Lymphocytes # (Manual) (1.0-4.8) k/uL Chloride 110 H (98-107) mmol/L Carbon Dioxide 19 L (22-30) mmol/L BUN (7-17) mg/dL Creatinine (0.52-1.04) mg/dL Glucose 100 H (74-99) mg/dL Magnesium 1.5 L (1.6-2.3) mg/dL AST (14-36) U/L Hep C IgG Ab (Nonreactive) Microbiology - Last 24 Hours (Table) 01/30/22 18:48 Blood Culture - Preliminary Blood No Growth after 24 hours 01/30/22 18:38 Blood Culture - Preliminary Blood No Growth after 24 hours Assessment and Plan Time with Patient: Less than 30
[2022-02-01] MEDS: ACETAMINOPHEN TAB 325 MG TAB PO PRN (17:33)
[2022-02-01] MEDS: risperiDONE 2 MG TAB PO SCH (20:21)
[2022-02-01] MEDS: METOPROLOL TARTRATE 25 MG TAB PO SCH (20:21)
[2022-02-01] MEDS: LEVOTHYROXINE 100 MCG TAB PO SCH (20:21)
[2022-02-01] MEDS: traZODone HCL 100 MG TAB PO SCH (20:21)
[2022-02-01] MEDS: ATORVASTATIN 20 MG TAB PO SCH (20:21)
[2022-02-01] MEDS ORDERED: LEVOFLOXACIN 750MG-D5W PMX 750 MG in DEXTROSE/WATER 1 150ML.BAG IVPB SCH (21:00)
[2022-02-01] MEDS ORDERED: CHERRY FLAVOR 60 ML BOTTLE PO SCH (22:00)
[2022-02-02] MEDS: SODIUM CHLORIDE 0.9% 1,000 ML IV SCH (06:34)
[2022-02-02] MEDS: amLODIPine 10 MG TAB PO SCH (07:26)
[2022-02-02] MEDS: SERTRALINE 100 MG TAB PO SCH (07:26)
[2022-02-02] MEDS: lisinopriL 20 MG TAB PO SCH (07:26)
[2022-02-02] MEDS: PANTOPRAZOLE 40 MG TABLET PO SCH (07:26)
[2022-02-02] MEDS: RALOXIFENE 60 MG TAB PO SCH (07:26)
[2022-02-02] MEDS: VANCOMYCIN 125 MG CAPSULE PO SCH ×4 (07:26→21:17)
[2022-02-02] MEDS: METOPROLOL TARTRATE 50 MG TAB PO SCH ×2 (07:27→21:17)
--- NOTE | 2022-02-02 11:17 | P.PN ---
Progress Note - Text Progress Note Date: 02/02/22 Patient's C. diff colitis is slowly improving. Patient abdomen is less tender l. She is minimally tender right upper quadrant. C. diff colitis improving. Chronic cholecystitis with cholelithiasis. We will plan on laparoscopic cholecystectomy once her overall condition is improved.
[2022-02-02] MEDS ORDERED: hydrALAZINE HCL 20 MG/ML 1 ML VIAL IVP PRN (13:51)
[2022-02-02] MEDS ORDERED: Magnesium Replacement Protocol 1 EACH MISC MISCELLANE PRN (15:15)
--- NOTE | 2022-02-02 15:18 | P.PN ---
Subjective Progress Note Date: 02/02/22 This is a pleasant 71-year-old female who presented to the emergency department with lower abdominal pain and even experiencing some nausea and vomiting and multiple episodes of diarrhea that have been ongoing for the last 2 days. Patient recently had been on IV antibiotic therapy at a nursing facility for STO myelitis of the right wrist that she states was done approximately 1-2 weeks ago. She started developing increasing abdominal pain and multiple episodes of diarrhea and intolerance to diet. Patient did not report any bleeding noted in the stool. Patient was tested for C. diff in the ER and was positive. Patient also had CT abdomen and pelvis without contrast which revealed fluid-filled colon with slightly thickened davis, colitis cannot be excluded, markedly distended gallbladder with dependent density within likely representing cholelithiasis, mild acute cholecystitis cannot be excluded, and large liver with slightly nodular outline an enlarged spleen, unremarkable nondistended s tomach duodenum and small bowel scattered colonic diverticulosis without convincing evidence of diverticulitis. On admission to the ER labs revealed a WBC of 3.3, hemoglobin 10.9, platelets 125, sodium 132, potassium 4.1, BUN 26, creatinine 1.31, plasma lactic acid 0.9, AST 53, ALT 23, C. diff was positive, which was negative, lipase 35. Patient was started on IV antibiotics in the form of Levaquin and Flagyl along with oral Vanco and general surgery was consulted. Will consult infectious disease and appreciate input and recommendations. 02/01/2022 Patient evaluated today resting in bed. She is currently alert x person and time. Thinks she is at 10 and dequindre, but states she is in hospital. Per nursing staff she has had periods of confusion which per family is not her baseline. Continues with episodes of loose stool, C Dif positive on oral vanco. Being followed closely by genery surgery and infectious disease. Gallbladder will be addressed outpatient with gen surgery once C. Dif infection has cleared. Labs today show sodium 137, potassium 3.9, chloride 110, CO2 19, glucose 100, magnesium 1.5 which was replaced and will repeat in the morning. Patient denies abdominal pain during assessment, no tenderness to palpation. Denies dysuria. Due to acute confusion urinalysis was checked which is negative for infection. 02/02/2022 Patient evaluated today resting in bed. No acute events overnight, per nursing staff patient does have some increased confusion throughout the night. Prior was living by herself. Discharge planning recommends home care currently. Less diarrhea today, per nursing staff no BM's throughout the morning shift. Patient is currently denying any abdominal pain, she continues on oral vancomycin for the C.Dif colitis. Afebrile, heart rate 99, blood pressure elevated today 180/100s. PRN hydralazine added today, and fluids are discontinued. She is on 5l NC, which patient wears 4 to 5 L of oxygen at home. We will request PT/OT consultation for discharge planning, possibly thursday if cleared by ID. Follow up with gen surgery outpatient for further evaluation of cholelisthiasis once c.dif infection clears up. Magnesium today 1.7, patient to receive 2 bags and repeat tomorrow. Review of Systems Constitutional: Denied any fatigue denied any fever. Cardio vascular: denied any chest pain, palpitations Gastrointestinal: denied any nausea, vomiting, denies diarrhea Pulmonary: Denied any shortness of breath cough Neurologic denied any new focal deficits All inpatient medications were reviewed and appropriate changes in these medications as dictated in the interval history and assessment and plan. PHYSICAL EXAMINATION: GENERAL: The patient is alert and oriented x2-3, Well developed, well nourished. Obese HEENT: Pupils are round and equally reacting to light. EOMI. does have scleral icterus. No conjunctival pallor. Normocephalic, atraumatic. No pharyngeal erythema. No thyromegaly. CARDIOVASCULAR: S1 and S2 muffled PULMONARY: diminished breath sounds bilaterally with improved aeration. ABDOMEN: soft. Nontender. obese. non-distended, normoactive bowel sounds. No palpable organomegaly. MUSCULOSKELETAL: No joint swelling or deformity. EXTREMITIES: No cyanosis, clubbing, or pedal edema. Right wrist deformity noted recent infection with osteomyelitis with current scabbing and crusting noted in the center of the wrist that was recently draining which required IV antibiotic therapy NEUROLOGICAL: Gross neurological examination did not reveal any focal deficits. Diffuse weakness SKIN: No rashes. Assessment: Abdominal pain with diarrhea which per patient no more abdominal pain and diarrhea is improving. C. difficile colitis Mild hyponatremia, most likely hypovolemic secondary to multiple episodes of diarrhea, dehydration, resolved Gallbladder distention noted on CT with cholelithiasis, no acute cholecystitis Enlarged spleen measuring approximately 14.5 cm with tiny scattered calcifications COPD, not in acute exacerbation History of renal carcinoma with partial nephrectomy on the left multiple surgeries of the right wrist for fractures, most recently had osteomyelitis and on IV antibiotics at an ECF PICC line History of hepatitis C that was successfully treated with harvoni History of osteoarthritis and rheumatoid arthritis History of fibromyalgia Depression GI prophylaxis DVT prophylaxis Full code Plan: Recommend to continue with current medications and oral vancomycin for C. diff colitis. Patient recently had IV antibiotics via PICC in the outpatient setting at an ECF for right wrist osteomyelitis and completed treatment approximately 1- 2 weeks ago. Patient started developing abdominal pain and multiple episodes of diarrhea and was found to be C. diff positive here. General surgery also consulted with no plans for surgical intervention at this time will follow up outpatient. Appreciate infectious disease consultation. Patient was started on Levaquin and Flagyl in the ER and this will be discontinued. Appropriate home medications will be resumed and will monitor closely. Discontinued IV fluids as sodium improved and patient is tolerating oral intake. Diarrhea has slowed down per patient and staff. PT/OT consultation is requested for discharge planning. Will add a small dose of seroquel for bedtime. Repeat metabolic panel in the morning. Objective - Vital Signs Vital signs: Vital Signs Temp 97.9 F 02/02/22 08:00 Pulse 99 02/02/22 08:00 Resp 18 02/02/22 08:00 BP 179/92 02/02/22 09:00 Pulse Ox 97 02/02/22 08:00 Intake & Output 02/01/22 02/02/22 02/02/22 18:59 06:59 18:59 Intake Total 950 Balance 950 Intake: Intake, IV Titration 950 Amount Magnesium Sulfate-D5w Pmx 200 1 gm In Dextrose/Water 1 100ml.bag @ 100 mls/hr IVPB Q1H [facility] Rx#: [id number] Sodium Chloride 0.9% 1, 750 000 ml @ 75 mls/hr IV . [id number] [facility] Rx#:[id number] Other: # Voids 3 1 # Bowel Movements 1 - Labs CBC & Chem 7: 01/31/22 10:55 02/01/22 05:19 Labs: Microbiology - Last 24 Hours (Table) 01/30/22 18:48 Blood Culture - Preliminary Blood No Growth after 48 hours 01/30/22 18:38 Blood Culture - Preliminary Blood No Growth after 48 hours Assessment and Plan Time with Patient: Less than 30
[2022-02-02] MEDS: ACETAMINOPHEN TAB 325 MG TAB PO PRN ×2 (15:29→21:17)
[2022-02-02] MEDS ORDERED: MAGNESIUM SULFATE-D5W PMX 1 GM in DEXTROSE/WATER 1 100ML.BAG IVPB SCH (15:30)
[2022-02-02] MEDS: MAGNESIUM OXIDE 400 MG TAB PO SCH ×2 (16:09→21:22)
[2022-02-02] MEDS: ATORVASTATIN 20 MG TAB PO SCH (21:17)
[2022-02-02] MEDS: traZODone HCL 100 MG TAB PO SCH (21:17)
[2022-02-02] MEDS: risperiDONE 2 MG TAB PO SCH (21:17)
[2022-02-02] MEDS: LEVOTHYROXINE 100 MCG TAB PO SCH (21:17)
--- NOTE | 2022-02-02 23:58 | P.PN ---
Subjective Progress Note Date: 02/01/22 Principal diagnosis: C. diff colitis Patient is a 71-year-old female recently completed a course of antibiotic for the right forearm nonhealing wound and osteomyelitis, presented to hospital with diarrhea and abdominal pain and has been diagnosed with C. diff colitis. On today's evaluation that is 02/01/2022, the patient denies having any fever or chills, the patient is feeling slightly better, the patient abdominal pain has decreased and diarrhea has slowed down denies any blood or mucus in the stool no chest pain shortness of breath or cough Objective - Vital Signs Vital signs: Vital Signs Temp 98.5 F 02/01/22 14:00 Pulse 94 02/01/22 14:00 Resp 18 02/01/22 14:00 BP 181/96 02/01/22 14:00 Pulse Ox 100 02/01/22 14:00 Intake & Output 01/31/22 02/01/22 02/01/22 18:59 06:59 18:59 Intake Total 100 Balance 100 Weight 86.183 kg Intake: Intake, IV Titration 100 Amount metroNIDAZOLE-NS PMX 500 100 mg In Saline 1 100ml.bag @ 100 mls/hr IVPB Q6H [facility] Rx#:[id number] Other: # Voids 2 # Bowel Movements 2 - Exam GENERAL DESCRIPTION: An elderly female lying in bed in no distress RESPIRATORY SYSTEM: Unlabored breathing , decreased breath sounds at bases HEART: S1 S2 regular rate and rhythm , ABDOMEN: Soft , no tenderness EXTREMITIES: No edema feet - Labs CBC & Chem 7: 01/31/22 10:55 02/01/22 05:19 Labs: Abnormal Lab Results - Last 24 Hours (Table) 02/01/22 02/01/22 Range/Units 05:19 13:00 Chloride 110 H (98-107) mmol/L Carbon Dioxide 19 L (22-30) mmol/L Glucose 100 H (74-99) mg/dL Magnesium 1.5 L (1.6-2.3) mg/dL Ur Leukocyte Esterase Small H (Negative) Urine WBC 7 H (0-5) /hpf Microbiology - Last 24 Hours (Table) 01/30/22 18:48 Blood Culture - Preliminary Blood No Growth after 24 hours 01/30/22 18:38 Blood Culture - Preliminary Blood No Growth after 24 hours Assessment and Plan (1) C. difficile colitis Current Visit: Yes Status: Acute Code(s): A04.72 - ENTEROCOLITIS D/T CLOSTRIDIUM DIFFICILE, NOT SPCF RECUR SNOMED Code(s): 487007805 Plan: 1patient presented to hospital with abdominal pain mostly lower abdominal area patient also have significant diarrhea with recent exposure to antibiotic for the right forearm nonhealing wound concern for underlying osteomyelitis culture data were positive for MSSA Klebsiella and anaerobes the patient was on both Rocephin and Flagyl now with evidence of significant diarrhea colitis on the CT and did have stool for C. difficile positive likely symptomatic C. difficile colitis 2-abnormality of the gallbladder seen on the CT however the patient did not have significant tenderness right upper quadrant area and the liver enzymes are normal, clinically not behaving as acute cholecystitis 3-patient to continue vancomycin 250 milligrams p.o. every 6 hours 4-Questran for symptomatic relief Time with Patient: Less than 30
--- NOTE | 2022-02-02 23:59 | P.PN ---
Subjective Progress Note Date: 02/02/22 Principal diagnosis: C. diff colitis Patient is a 71-year-old female recently completed a course of antibiotic for the right forearm nonhealing wound and osteomyelitis, presented to hospital with diarrhea and abdominal pain and has been diagnosed with C. diff colitis. On today's evaluation that is 02/02/2022, the patient remains to be afebrile, the patient abdominal pain has resolved and diarrhea has slowed down , the patient denies any blood or mucus in the stool no chest pain shortness of breath or cough Objective - Vital Signs Vital signs: Vital Signs Temp 99.0 F 02/02/22 14:00 Pulse 95 02/02/22 14:00 Resp 18 02/02/22 14:00 BP 171/88 02/02/22 14:00 Pulse Ox 94 L 02/02/22 14:00 Intake & Output 02/01/22 02/02/22 02/02/22 18:59 06:59 18:59 Intake Total 950 Balance 950 Intake: Intake, IV Titration 950 Amount Magnesium Sulfate-D5w Pmx 200 1 gm In Dextrose/Water 1 100ml.bag @ 100 mls/hr IVPB Q1H [facility] Rx#: [id number] Sodium Chloride 0.9% 1, 750 000 ml @ 75 mls/hr IV . [id number] [facility] Rx#:[id number] Other: # Voids 3 1 # Bowel Movements 1 - Exam GENERAL DESCRIPTION: An elderly female lying in bed in no distress RESPIRATORY SYSTEM: Unlabored breathing , decreased breath sounds at bases HEART: S1 S2 regular rate and rhythm , ABDOMEN: Soft , no tenderness EXTREMITIES: No edema feet - Labs CBC & Chem 7: 01/31/22 10:55 02/01/22 05:19 Labs: Microbiology - Last 24 Hours (Table) 01/30/22 18:48 Blood Culture - Preliminary Blood No Growth after 48 hours 01/30/22 18:38 Blood Culture - Preliminary Blood No Growth after 48 hours Assessment and Plan (1) C. difficile colitis Current Visit: Yes Status: Acute Code(s): A04.72 - ENTEROCOLITIS D/T CLOSTRIDIUM DIFFICILE, NOT SPCF RECUR SNOMED Code(s): 932106750 Plan: 1patient presented to hospital with abdominal pain mostly lower abdominal area patient also have significant diarrhea with recent exposure to antibiotic for the right forearm nonhealing wound concern for underlying osteomyelitis culture data were positive for MSSA Klebsiella and anaerobes the patient was on both Rocephin and Flagyl now with evidence of significant diarrhea and colitis on the CT and did have stool for C. difficile positive likely symptomatic C. difficile colitis 2-patient to continue vancomycin 250 milligrams p.o. every 6 hours 4-Questran for symptomatic relief Time with Patient: Less than 30
[2022-02-03 09:07] LABS: African American GFR (CKD) 99.6 (60.0-200.0); Anion Gap 13.3 mmol/L (10.00-18.00); BUN/Creat Ratio 12.57 Ratio (12.00-20.00); Blood Urea Nitrogen 8.8 mg/dL (9.0-27.0); Calcium 8.9 mg/dL (8.7-10.3); Carbon Dioxide 19.7 mmol/L (20.0-27.5); Magnesium 1.7 mg/dL (1.5-2.4); Potassium 3.8 mmol/L (3.5-5.5)
[2022-02-03] MEDS: SERTRALINE 100 MG TAB PO SCH (09:48)
[2022-02-03] MEDS: MAGNESIUM OXIDE 400 MG TAB PO SCH (09:48)
[2022-02-03] MEDS: VANCOMYCIN 125 MG CAPSULE PO SCH ×2 (09:48→13:28)
[2022-02-03] MEDS: amLODIPine 10 MG TAB PO SCH (09:48)
[2022-02-03] MEDS: lisinopriL 20 MG TAB PO SCH (09:48)
[2022-02-03] MEDS: METOPROLOL TARTRATE 50 MG TAB PO SCH (09:48)
[2022-02-03] MEDS: PANTOPRAZOLE 40 MG TABLET PO SCH (09:48)
[2022-02-03] MEDS: RALOXIFENE 60 MG TAB PO SCH (09:48)
[2022-02-03] MEDS ORDERED: hydrALAZINE HCL 25 MG TAB PO STA (09:53)
--- NOTE | 2022-02-03 11:09 | P.PN ---
Subjective Progress Note Date: 02/03/22 CHIEF COMPLAINT: C. diff colitis, cholelithiasis HISTORY OF PRESENT ILLNESS: Patient reports that she is feeling better today. She denies any abdominal pain. She reports that her diarrhea is improving. Stools are becoming more formed and less frequent. Patient reports tolerating diet. She did have a low-grade temp of 100.3 yesterday evening. Patient denies any pain after eating. PHYSICAL EXAM: VITAL SIGNS: Reviewed. GENERAL: Well-developed in no acute distress. HEENT: No sclera icterus. Extraocular movements grossly intact. Moist buccal mucosa. Head is atraumatic, normocephalic. ABDOMEN: Soft. Nondistended. Nontender. NEUROLOGIC: Alert and oriented. Cranial nerves II through XII grossly intact. ASSESSMENT: 1. C. diff colitis 2. Cholelithiasis PLAN: -C. diff management per infectious disease medicine service -Continue supportive care -Cholelithiasis will be addressed outpatient once patient's C. diff colitis has resolved Physician [employer] Clerk note has been reviewed by physician. Signing provider agrees with the documented findings, assessment, and plan of care. Objective - Vital Signs Vital signs: Vital Signs Temp 97.6 F 02/03/22 07:45 Pulse 86 02/03/22 07:45 Resp 16 02/03/22 07:45 BP 188/85 02/03/22 07:45 Pulse Ox 95 02/03/22 07:45 Intake & Output 02/02/22 02/03/22 02/03/22 18:59 06:59 18:59 Intake Total 296 Balance 296 Intake: Oral 296 Other: Voiding Method Bedside Commode # Voids 3 - Labs CBC & Chem 7: 01/31/22 10:55 02/03/22 03:40 Labs: Abnormal Lab Results - Last 24 Hours (Table) 02/03/22 Range/Units 03:40 Carbon Dioxide 19.7 L (20.0-27.5) mmol/L BUN 8.8 L (9.0-27.0) mg/dL Microbiology - Last 24 Hours (Table) 01/30/22 14:30 Stool Culture - Final Stool 01/30/22 18:48 Blood Culture - Preliminary Blood No Growth after 72 hours 01/30/22 18:38 Blood Culture - Preliminary Blood No Growth after 72 hours
[2022-02-03] MEDS ORDERED: hydroCHLOROthiazide 25 MG TAB PO SCH (13:15)
[2022-02-03 13:30] VITALS: BP 137/77; PULSE 68; RESP 18; TEMP 98
--- NOTE | 2022-02-03 16:06 | P.DS ---
Providers Date of admission: 01/31/22 10:27 Attending physician: Joaquín Paige MD Consults: 01/30/22 19:34 Consult Physician Routine Consulting Provider: Mundo Lee Consult Reason/Comments: c-diff colitis, possible acute cholecystitis Do you want consulting provider notified?: Yes 01/31/22 13:17 Consult Physician Urgent Consulting Provider: Dayo Molina Consult Reason/Comments: c diff colitis, recent osteomyelitis of right wrist on IV abx outpatient Do you want consulting provider notified?: Yes [facility] care physician[facility] Course: Final Diagnosis Abdominal pain with diarrhea which per patient no more abdominal pain and diarrhea is improving. C. difficile colitis Mild hyponatremia, most likely hypovolemic secondary to multiple episodes of diarrhea, dehydration, resolved Gallbladder distention noted on CT with cholelithiasis, no acute cholecystitis Enlarged spleen measuring approximately 14.5 cm with tiny scattered calcifications COPD, not in acute exacerbation History of renal carcinoma with partial nephrectomy on the left multiple surgeries of the right wrist for fractures, most recently had osteomyelitis and on IV antibiotics at an F PICC line History of hepatitis C that was successfully treated with harvoni History of osteoarthritis and rheumatoid arthritis History of fibromyalgia Depression GI prophylaxis DVT prophylaxis Full code Discharge Disposition Patient stable for discharge home cleared by PT/OT and will not require rehab. Discharged on 10 more days of oral vancomycin and on home oxygen. Hospital Course This is a pleasant 71-year-old female presented to the with complaints of lower abdominal pain with nausea vomiting multiple episodes of diarrhea that has been ongoing for the last 2 days. Patient was recently at a nursing facility for osteomyelitis of the right wrist and was on IV antibiotics via PICC line. She finished therapy about 1-2 weeks ago. There is no blood in the stool. She is having crampy abdominal pain. Patient is a past nuchal history significant for renal carcinoma with surgery, hepatitis C 6 of the treated with her bony, bronchitis, hypothyroidism, migraines, febrile general, osteoarthritis, left partial nephrectomy, multiple orthopedic surgeries, depression, she does live alone, former smoker quit in 2019. Family did have some concerns requesting workup for dementa. She is on trazodone at bedtime. This can be further worked up outpatient with her primary provider. CT of the abdomen pelvis showed fluid-filled: Slightly thickened davis colitis cannot be excluded with markedly distended gallbladder with dependent density within likely representing cholelithiasis, mild acute cholecystitis cannot be excluded enlarged liver was slightly nodular outline an enlarged spleen, unremarkable nondistended stomach duodenum and small bowel scattered colonic diverticulosis without convincing evidence of diverticulitis. On admission to the ER labs revealed a WBC of 3.3, hemoglobin 10.9, platelets 125, sodium 132, potassium 4.1, BUN 26, creatinine 1.31, plasma lactic acid 0.9, AST 53, ALT 23, C. diff was positive, which was negative, lipase 35. Patient was started on IV antibiotics in the form of Levaquin and Flagyl along with oral Vanco and general surgery was consulted. Will consult infectious disease and appreciate input and recommendations. Patient was found to be positive for C. Dif colitis. She was started on oral vancomycin per infectious disease and has had significant improvement in diarrhea. All other antibiotics were discontinued Patien was also evaluated by gen surgery who will follow up with patient outpatient was C.Dif infection has cleared for further evaluation of gallbladder. 02/03/2022 Currently today with no abdominal pain, diarrhea only 1-2 episodes in the last 24 hours. Labs today show sodium 138, potassium 3.8, chloride 105, CO2 19.7, BUN 8.8, creatinine 0.7, magnesium 1.7. Patient was started on oral magnesium supplementation as she did not have IV access overnight to receive IV magnesium. Patient's blood pressure is elevated at 188 systolic this morning we did resume her hydrochlorothiazide on discharge as her diarrhea has much improved. She was also given a one-time PO dose 25 mg hydralazine today. Metoprolol was increased to 50 mg po BID. Blood pressure is now 137/77. Patient is afebrile, 95% oxygenation, heart rate 86. She can be discharged today with 10 more days of oral vancomycin. Lungs are clear, S1-S2 auscultated, abdomen is soft and nontender, no dysuria, urgency or frequency noted. Focal neurological exam negative, patient is alert and oriented x3 and would like to go home today. Right wrist chronic wound can continue with outpatient recommendations as previous. Please see medication reconciliation for a list of current medications. Thank you for allowing us to participate in the care of this patient. Patient Condition at Discharge: Fair Plan - Discharge Summary Discharge Rx Participant: Yes New Discharge Prescriptions: New Magnesium Oxide [Mag-Ox] 400 mg PO BID 5 Days #10 tab Acetaminophen Tab [Tylenol] 650 mg PO Q6HR PRN tab PRN Reason: Fever And/ Or Pain Vancomycin 125 mg PO QID 10 Days #40 capsule Continue Sertraline HCl [Zoloft] 200 mg PO DAILY Raloxifene [Evista] 60 mg PO DAILY risperiDONE [RisperDAL] 2 mg PO HS busPIRone HCl [Buspar] 10 mg PO BID PRN PRN Reason: Anxiety Ascorbic Acid [Vitamin C] 500 mg PO DAILY traZODone HCL 100 mg PO HS Naproxen 500 mg PO BID PRN PRN Reason: Pain Levothyroxine Sodium [Synthroid] 100 mcg PO HS Cholecalciferol [Vitamin D3 (25 Mcg = 1000 Iu)] 25 mcg PO DAILY [place]-3 Fatty Acids [[place]-3] 1,000 mg PO DAILY amLODIPine [Norvasc] 10 mg PO DAILY #90 tab lisinopriL [Zestril] 20 mg PO BID #180 tab oxyCODONE-APAP 7.5-325MG [Percocet 7.5-325 mg] 1 tab PO Q6H PRN #12 tab PRN Reason: Pain Ergocalciferol (Vitamin D2) [Drisdol (50,000 Iu)] 1,250 mcg PO TH Dicyclomine HCl 10 mg PO QID PRN PRN Reason: IBS hydroCHLOROthiazide [Hydrodiuril] 25 mg PO DAILY #90 tab Atorvastatin [Lipitor] 20 mg PO HS Omeprazole 20 mg PO DAILY Albuterol Sulfate [Ventolin HFA] 2 puff INHALATION RT-Q6H PRN PRN Reason: Shortness Of Breath Pantoprazole Sodium 40 mg PO DAILY Changed Metoprolol Tartrate [Lopressor] 50 mg PO BID #60 tab Discontinued Metoprolol Tartrate [Lopressor] 25 mg PO HS #90 tab Discharge Medication List Raloxifene [Evista] 60 mg PO DAILY 02/07/15 [History] Sertraline HCl [Zoloft] 200 mg PO DAILY 02/07/15 [History] risperiDONE [RisperDAL] 2 mg PO HS 04/05/15 [History] Ascorbic Acid [Vitamin C] 500 mg PO DAILY 01/14/20 [History] busPIRone HCl [Buspar] 10 mg PO BID PRN 01/14/20 [History] traZODone HCL 100 mg PO HS 01/14/20 [History] Naproxen 500 mg PO BID PRN 03/07/21 [History] Cholecalciferol [Vitamin D3 (25 Mcg = 1000 Iu)] 25 mcg PO DAILY 12/16/21 [History] Dicyclomine HCl 10 mg PO QID PRN 12/16/21 [History] Ergocalciferol (Vitamin D2) [Drisdol (50,000 Iu)] 1,250 mcg PO TH 12/16/21 [History] Levothyroxine Sodium [Synthroid] 100 mcg PO HS 12/16/21 [History] [place]-3 Fatty Acids [[place]-3] 1,000 mg PO DAILY 12/16/21 [History] amLODIPine [Norvasc] 10 mg PO DAILY #90 tab 12/20/21 [Rx] hydroCHLOROthiazide [Hydrodiuril] 25 mg PO DAILY #90 tab 12/20/21 [Rx] lisinopriL [Zestril] 20 mg PO BID #180 tab 12/20/21 [Rx] oxyCODONE-APAP 7.5-325MG [Percocet 7.5-325 mg] 1 tab PO Q6H PRN #12 tab 12/24/21 [Rx] Atorvastatin [Lipitor] 20 mg PO HS 01/14/22 [History] Omeprazole 20 mg PO DAILY 01/14/22 [History] Albuterol Sulfate [Ventolin HFA] 2 puff INHALATION RT-Q6H PRN 01/30/22 [History] Pantoprazole Sodium 40 mg PO DAILY 01/30/22 [History] Acetaminophen Tab [Tylenol] 650 mg PO Q6HR PRN tab 02/03/22 [Rx] Magnesium Oxide [Mag-Ox] 400 mg PO BID 5 Days #10 tab 02/03/22 [Rx] Metoprolol Tartrate [Lopressor] 50 mg PO BID #60 tab 02/03/22 [Rx] Vancomycin 125 mg PO QID 10 Days #40 capsule 02/03/22 [Rx] Follow up Appointment(s)/Referral(s): [facility], [NON-STAFF] - 1-2 Days hBavin Sin DO [REFERRING] - 1-2 days (patient to call and make appointment after D/C) Mundo Lee MD [STAFF PHYSICIAN] - 02/13/22 2:45 pm Ambulatory/Diagnostic Orders: Basic Metabolic Panel [LAB.AMB] Time Frame: 2 Days, Location: None Selected Patient Instructions/Handouts: C. Diff (Clostridioides Difficile) Infection (DC) Discharge Disposition: HOME WITH HOME HEALTH SERVICES
[2022-02-03] MEDS ORDERED: carvediloL 12.5 MG TAB PO SCH (17:30)
[2022-02-03] MEDS ORDERED: METOPROLOL TARTRATE 50 MG TAB PO SCH (21:00)
== END 2022-02-03 15:59 | disposition home health service (06) | DRG 372 ==
LOC: EC 13:27 → 4SSUR 16:53 → OBSVTOIN 01-31 10:27
PROVIDERS: ADMIT Internal Medicine; ATTEND Internal Medicine
DX: A04.72 Enterocolitis due to Clostridium difficile, not specified as recurrent (principal); E87.1 Hypo-osmolality and hyponatremia; K80.10 Calculus of gallbladder with chronic cholecystitis without obstruction; M86.9 Osteomyelitis, unspecified; E03.9 Hypothyroidism, unspecified; E86.0 Dehydration; E86.1 Hypovolemia; F32.A Depression, unspecified; J44.9 Chronic obstructive pulmonary disease, unspecified; K57.30 Diverticulosis of large intestine without perforation or abscess without bleeding; K82.8 Other specified diseases of gallbladder; M19.90 Unspecified osteoarthritis, unspecified site; M06.9 Rheumatoid arthritis, unspecified; G43.909 Migraine, unspecified, not intractable, without status migrainosus; R16.1 Splenomegaly, not elsewhere classified; M79.7 Fibromyalgia; Z79.890 Hormone replacement therapy; Z79.899 Other long term (current) drug therapy; Z80.1 Family history of malignant neoplasm of trachea, bronchus and lung; Z86.16 Personal history of COVID-19; Z85.528 Personal history of other malignant neoplasm of kidney; Z87.891 Personal history of nicotine dependence; Z90.5 Acquired absence of kidney; Z60.2 Problems related to living alone; Z88.6 Allergy status to analgesic agent; Z88.5 Allergy status to narcotic agent; Z88.0 Allergy status to penicillin; Z82.61 Family history of arthritis; Z87.01 Personal history of pneumonia (recurrent); Z86.19 Personal history of other infectious and parasitic diseases
CPT/HCPCS: 36415; 74176; 80048; 80053; 80074; 81001; 83605; 83690; 83735; 85025; 87040; 87045; 87046; 87324; 87635; 94760; 96361; 96374; 99285

== ENCOUNTER 2022-02-07 14:40 | Inpatient (IN) | payer MEDICARE, OTHER ==
[2022-02-07] MEDS ORDERED: SODIUM CHLORIDE 0.9% 500 ML 500 ML IV STA (15:36)
--- NOTE | 2022-02-07 15:57 | XR ---
EXAMINATION TYPE: XR chest 2V DATE OF EXAM: 02/07/2022 COMPARISON: 12/16/2021 HISTORY: Shortness of breath TECHNIQUE: Frontal and lateral views of the chest are obtained. FINDINGS: Scattered senescent parenchymal changes noted. Hyperinflation compatible with COPD. Chronic prominenc e of the pulmonary interstitium is unchanged. No definite focal infiltrate. Mild prominence of the le ft hilum persists. Consider underlying pulmonary arterial hypertension. No evidence for infiltrate. No evidence for atelectasis. Heart size is stable. Mediastinal structures are stable and grossly unremarkable. Degenerative changes dorsal spine. IMPRESSION: 1. Chronic prominence of the pulmonary interstitium is unchanged. No definite focal infiltrate. Mild prominence of the left hilum persists. Consider underlying pulmonary arterial hypertension.
[2022-02-07 15:59] LABS: Basophils % (A) 1 %; Eosinophils # (A) 0.1 k/uL (0-0.7); Eosinophils % (A) 2 %; HCT 33.6 % (34.0-46.0); HGB 11.1 gm/dL (11.4-16.0); Lymphocytes # (A) 0.6 k/uL (1.0-4.8); Lymphocytes % (A) 7 %; Mean Platelet Volume 11.9; Monocytes # (A) 0.6 k/uL (0-1.0); Monocytes % (A) 8 %; Neutrophils # (A) 6.4 k/uL (1.3-7.7); Neutrophils % (A) 82 %; RBC 3.69 m/uL (3.80-5.40); RDW 14.1 % (11.5-15.5); WBC 7.8 k/uL (3.8-10.6)
[2022-02-07 16:16] LABS: Chloride 107 mmol/L (98-107)
[2022-02-07 16:19] LABS: ALT 17 U/L (4-34); African American GFR (CKD) 43 (>60 ml/min/1.73 sqM); Anion Gap 9 mmol/L; Blood Urea Nitrogen 33 mg/dL (7-17); Calcium 8.7 mg/dL (8.4-10.2); Carbon Dioxide 20 mmol/L (22-30); Glucose 103 mg/dL (74-99); Non-African American GFR(CKD) 37 (>60 ml/min/1.73 sqM); Sodium 136 mmol/L (137-145); Total Bilirubin 0.8 mg/dL (0.2-1.3); Total Protein 7.2 g/dL (6.3-8.2)
[2022-02-07 16:24] LABS: Partial Thromboplastin Time 20.3 sec (22.0-30.0); Prothrombin Time 10.8 sec (9.0-12.0)
[2022-02-07] MEDS ORDERED: oxyCODONE-APAP 7.5-325MG 1 EACH TAB PO STA (17:10)
[2022-02-07 17:15] LABS: AST 34 U/L (14-36); Alkaline Phosphatase 104 U/L (38-126); Magnesium 1.7 mg/dL (1.6-2.3); Potassium 5.2 mmol/L (3.5-5.1)
[2022-02-07 17:27] LABS: Appearance,Urine Turbid (Clear); Bacteria,Urine Moderate /hpf; Bilirubin,Urine Negative (Negative); Blood,Urine Moderate (Negative); Color,Urine Light Red; Glucose,Urine (UA) Negative (Negative); Hyaline Casts,Urine 85 /lpf (0-2); Ketones,Urine Negative (Negative); Leukocyte Esterase,Urine Large (Negative); Mucus,Urine Few /hpf; Nitrite,Urine Positive (Negative); PH, Urine 5.5 (5.0-8.0); Protein,Urine 1+ (Negative); RBC,Urine 93 /hpf (0-5); Specific Gravity,Urine 1.022 (1.001-1.035); Squamous Epithelial Cell,Urine 22 /hpf (0-4); Urobilinogen,Urine <2.0 mg/dL (<2.0); WBC,Urine >182 /hpf (0-5)
[2022-02-07 17:31] LABS: T4, Free (Free Thyroxine) 1.68 ng/dL (0.78-2.19)
[2022-02-07] MEDS ORDERED: cefTRIAXone IN SWFI 1,000 MG/10 ML SYRINGE IVP STA (18:05)
--- NOTE | 2022-02-07 18:07 | ED ---
General Adult HPI - General Chief complaint: Syncope Stated complaint: Weakness/leg pain Source: patient, EMS Mode of arrival: EMS Limitations: no limitations - History of Present Illness Initial comments: 71-year-old female presents to the emergency department for weakness and p resyncope. Patient was recently hospitalized and discharged home on vancomycin for C. diff. States that she has been doing fairly well at home up until today. She has had kind of a poor appetite. Today she began having some weakness. She was attempting to walk to her vehicle with her daughter when she started to feel her legs give out. Her daughter was present and was able to lower her to the ground. She did not sustain a fall and never completely lost consciousness. She denies any fevers or chills. States that she continues to have diarrhea however it is somewhat formed instead of the liquid stool that she was experiencing before. Has been taking her vancomycin as directed. Not on any other antibiotics at this time. Patient was previously treated for a right arm infection and this is what is thought to cause the C. diff. She denies any headaches or visual changes. Has had a new productive cough since hospitalization. No chest pain. No changes in her urination. No other alleviating, precipitating or modifying factors - Related Data Home Medications Medication Instructions Recorded Confirmed Raloxifene [Evista] 60 mg PO DAILY 02/07/15 02/07/22 Sertraline HCl [Zoloft] 200 mg PO DAILY 02/07/15 02/07/22 risperiDONE [RisperDAL] 2 mg PO HS 04/05/15 02/07/22 Ascorbic Acid [Vitamin C] 500 mg PO DAILY 01/14/20 02/07/22 busPIRone HCl [Buspar] 10 mg PO BID PRN 01/14/20 02/07/22 traZODone HCL 100 mg PO HS 01/14/20 02/07/22 Naproxen 500 mg PO BID PRN 03/07/21 02/07/22 Cholecalciferol [Vitamin D3 (25 25 mcg PO DAILY 12/16/21 02/07/22 Mcg = 1000 Iu)] Dicyclomine HCl 10 mg PO QID PRN 12/16/21 02/07/22 Ergocalciferol (Vitamin D2) 1,250 mcg PO TH 12/16/21 02/07/22 [Drisdol (50,000 Iu)] Levothyroxine Sodium [Synthroid] 100 mcg PO HS 12/16/21 02/07/22 Kiln-3 Fatty Acids [Kiln-3] 1,000 mg PO DAILY 12/16/21 02/07/22 Atorvastatin [Lipitor] 20 mg PO HS 01/14/22 02/07/22 Omeprazole 20 mg PO DAILY 01/14/22 02/07/22 Albuterol Sulfate [Ventolin HFA] 2 puff INHALATION RT-Q6H PRN 01/30/22 02/07/22 Pantoprazole Sodium 40 mg PO DAILY 01/30/22 02/07/22 Previous Rx's Medication Instructions Recorded amLODIPine [Norvasc] 10 mg PO DAILY #90 tab 12/20/21 hydroCHLOROthiazide [Hydrodiuril] 25 mg PO DAILY #90 tab 12/20/21 lisinopriL [Zestril] 20 mg PO BID #180 tab 12/20/21 oxyCODONE-APAP 7.5-325MG [Percocet 1 tab PO Q6H PRN #12 tab 12/24/21 7.5-325 mg] Acetaminophen Tab [Tylenol] 650 mg PO Q6HR PRN tab 02/03/22 Magnesium Oxide [Mag-Ox] 400 mg PO BID 5 Days #10 tab 02/03/22 Metoprolol Tartrate [Lopressor] 50 mg PO BID #60 tab 02/03/22 Vancomycin Oral Solution 250 mg PO Q6HR 10 Days #200 ml 02/05/22 Allergies Allergy/AdvReac Type Severity Reaction Status Date / Time Penicillins Allergy Dyspnea Verified 02/07/22 17:13 aspirin AdvReac Nausea & Verified 02/07/22 17:13 Vomiting morphine AdvReac Hallucinati Verified 02/07/22 17:13 ons Review of Systems ROS Statement: Those systems with pertinent positive or pertinent negative responses have been documented in the HPI. ROS Other: All systems not noted in ROS Statement are negative. Past Medical History Past Medical History: Cancer, COPD, Fibromyalgia, Osteoarthritis (OA), Pneumonia, Rheumatoid Arthritis (RA) Additional Past Medical History / Comment(s): Pt tested covid + 03/07/21 [facility] ER. 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 L hand and ulcer on L wrist History of Any Multi-Drug Resistant Organisms: None Reported Past Surgical History: Back Surgery, Hysterectomy, Joint Replacement, Orthopedic Surgery Additional Past Surgical History / Comment(s): L partial nephrectomy, R wrist surgery for fracture, 3 L spine surgeries, 2 cervical surgeries, L hemiarth roplasty d/t fracture, colonoscopy Past Anesthesia/Blood Transfusion Reactions: No Reported Reaction Past Psychological History: Depression Additional Psychological History / Comment(s): Pt resides alone. She uses a walker to ambulate. She does not drive, her braeden drives her places. Smoking Status: Former smoker Past Alcohol Use History: None Reported Additional Past Alcohol Use History / Comment(s): Pt started smoking in 1962 and quit in 2019. She denied any alcohol use. Past Drug Use History: None Reported Additional Drug Use History / Comment(s): Pt denied any drug use - Past Family History Father Family Medical History: Cancer Additional Family Medical History / Comment(s): LUNG CA Mother Family Medical History: Osteoarthritis (OA) General Exam Limitations: no limitations Course Vital Signs 02/07/22 02/07/22 02/07/22 15:01 16:26 18:48 Temperature 98.7 F 98.5 F Pulse Rate 67 66 69 Respiratory 18 18 18 Rate Blood Pressure 124/67 122/57 127/79 O2 Sat by Pulse 99 99 99 Oximetry EKG Findings - EKG Comments: EKG Findings:: EKG demonstrates a sinus rhythm with rate of 66. AK interval 154. QRS 90. QTC 431. No acute ST segment elevation or depressions. Medical Decision Making - Medical Decision Making Upon arrival patient was placed in room 3. A thorough history and physical exam is performed. Patient is alert and oriented at this time. IV is established laboratory studies were conducted. Creatinine elevated at 1.4. Magnesium low a t 1.7. Urinalysis is positive for nitrites, large leukocyte esterase, 93 red blood cells, greater than 182 with blood cells and many white blood cell clumps. Covid not detected. Chest x-ray demonstrates chronic prominence of the pulmonary interstitium which is unchanged. Blood cultures obtained a patient initiated on Rocephin for UTI. Recommended admission for weakness, presyncope, UTI, jacob for which the patient agreed to. Spoke with Laurie from [facility] who agree to admit the patient. Patient taken to the floor in stable condition - Lab Data Result diagrams: 02/07/22 15:38 02/07/22 15:38 Lab Results 02/07/22 02/07/22 02/07/22 Range/Units 15:38 15:38 15:38 WBC 7.8 (3.8-10.6) k/uL RBC 3.69 L (3.80-5.40) m/uL Hgb 11.1 L (11.4-16.0) gm/dL Hct 33.6 L (34.0-46.0) % MCV 91.0 (80.0-100.0) fL MCH 30.0 (25.0-35.0) pg MCHC 33.0 (31.0-37.0) g/dL RDW 14.1 (11.5-15.5) % Plt Count Not Reportable MPV 11.9 Neutrophils % 82 % Lymphocytes % 7 % Monocytes % 8 % Eosinophils % 2 % Basophils % 1 % Neutrophils # 6.4 (1.3-7.7) k/uL Lymphocytes # 0.6 L (1.0-4.8) k/uL Monocytes # 0.6 (0-1.0) k/uL Eosinophils # 0.1 (0-0.7) k/uL Basophils # 0.0 (0-0.2) k/uL Manual Slide Review Performed PT 10.8 (9.0-12.0) sec INR 1.0 (<1.2) APTT 20.3 L (22.0-30.0) sec Sodium 136 L (137-145) mmol/L Potassium 5.2 H (3.5-5.1) mmol/L Chloride 107 (98-107) mmol/L Carbon Dioxide 20 L (22-30) mmol/L Anion Gap 9 mmol/L BUN 33 H (7-17) mg/dL Creatinine 1.40 H (0.52-1.04) mg/dL Est GFR (CKD-EPI)AfAm 43 (>60 ml/min/1.73 sqM) Est GFR (CKD-EPI)NonAf 37 (>60 ml/min/1.73 sqM) Glucose 103 H (74-99) mg/dL Calcium 8.7 (8.4-10.2) mg/dL Magnesium 1.7 (1.6-2.3) mg/dL Total Bilirubin 0.8 (0.2-1.3) mg/dL AST 34 (14-36) U/L ALT 17 (4-34) U/L Alkaline Phosphatase 104 (38-126) U/L Troponin I (0.000-0.034) ng/mL Total Protein 7.2 (6.3-8.2) g/dL Albumin 4.0 (3.5-5.0) g/dL TSH 0.430 L (0.465-4.680) mIU/L Free T4 1.68 (0.78-2.19) ng/dL Urine Color Urine Appearance (Clear) Urine pH (5.0-8.0) Ur Specific [place] (1.001-1.035) Urine Protein (Negative) Urine Glucose (UA) (Negative) Urine Ketones (Negative) Urine Blood (Negative) Urine Nitrite (Negative) Urine Bilirubin (Negative) Urine Urobilinogen (<2.0) mg/dL Ur Leukocyte Esterase (Negative) Urine RBC (0-5) /hpf Urine WBC (0-5) /hpf Urine WBC Clumps (None) /hpf Ur Squamous Epith Cells (0-4) /hpf Urine Bacteria (None) /hpf Hyaline Casts (0-2) /lpf Urine Mucus (None) /hpf Coronavirus (PCR) (Not Detectd) 02/07/22 02/07/22 02/07/22 Range/Units 15:38 16:14 16:26 WBC (3.8-10.6) k/uL RBC (3.80-5.40) m/uL Hgb (11.4-16.0) gm/dL Hct (34.0-46.0) % MCV (80.0-100.0) fL MCH (25.0-35.0) pg MCHC (31.0-37.0) g/dL RDW (11.5-15.5) % Plt Count MPV Neutrophils % % Lymphocytes % % Monocytes % % Eosinophils % % Basophils % % Neutrophils # (1.3-7.7) k/uL Lymphocytes # (1.0-4.8) k/uL Monocytes # (0-1.0) k/uL Eosinophils # (0-0.7) k/uL Basophils # (0-0.2) k/uL Manual Slide Review PT (9.0-12.0) sec INR (<1.2) APTT (22.0-30.0) sec Sodium (137-145) mmol/L Potassium (3.5-5.1) mmol/L Chloride (98-107) mmol/L Carbon Dioxide (22-30) mmol/L Anion Gap mmol/L BUN (7-17) mg/dL Creatinine (0.52-1.04) mg/dL Est GFR (CKD-EPI)AfAm (>60 ml/min/1.73 sqM) Est GFR (CKD-EPI)NonAf (>60 ml/min/1.73 sqM) Glucose (74-99) mg/dL Calcium (8.4-10.2) mg/dL Magnesium (1.6-2.3) mg/dL Total Bilirubin (0.2-1.3) mg/dL AST (14-36) U/L ALT (4-34) U/L Alkaline Phosphatase (38-126) U/L Troponin I <0.012 (0.000-0.034) ng/mL Total Protein (6.3-8.2) g/dL Albumin (3.5-5.0) g/dL TSH (0.465-4.680) mIU/L Free T4 (0.78-2.19) ng/dL Urine Color Light Red Urine Appearance Turbid H (Clear) Urine pH 5.5 (5.0-8.0) Ur Specific [employer] [place] 1.022 (1.001-1.035) Urine Protein 1+ H (Negative) Urine Glucose (UA) Negative (Negative) Urine Ketones Negative (Negative) Urine Blood Moderate H (Negative) Urine Nitrite Positive H (Negative) Urine Bilirubin Negative (Negative) Urine Urobilinogen <2.0 (<2.0) mg/dL Ur Leukocyte Esterase Large H (Negative) Urine RBC 93 H (0-5) /hpf Urine WBC >182 H (0-5) /hpf Urine WBC Clumps Many H (None) /hpf Ur Squamous Epith Cells 22 H (0-4) /hpf Urine Bacteria Moderate H (None) /hpf Hyaline Casts 85 H (0-2) /lpf Urine Mucus Few H (None) /hpf Coronavirus (PCR) Not Detected (Not Detectd) Disposition Clinical Impression: C. difficile colitis, UTI (urinary tract infection), Pre-syncope, JACOB (acute kidney injury) Disposition: ADMITTED IP TO THIS HOSP Condition: Stable Is patient prescribed a controlled substance at d/c from ED?: No Decision to Admit Reason: Admit from EC Decision Date: 02/07/22 Decision Time: 18:08
[2022-02-07] MEDS ORDERED: NALOXONE 0.4 MG/ML 1 ML VIAL IV PRN (18:09)
[2022-02-07] MEDS: SODIUM CHLORIDE 0.9% 1,000 ML IV SCH (21:56)
[2022-02-07] MEDS ORDERED: NAPROXEN 250 MG TAB PO PRN (22:06)
[2022-02-07] MEDS ORDERED: ACETAMINOPHEN TAB 325 MG TAB PO PRN (22:06)
[2022-02-07] MEDS ORDERED: ALBUTEROL NEBULIZED 2.5 MG/3 ML INHALATION PRN (22:06)
[2022-02-07] MEDS ORDERED: DICYCLOMINE 10 MG CAP PO PRN (22:06)
[2022-02-07] MEDS ORDERED: busPIRone HCl 10 MG TAB PO PRN (22:06)
[2022-02-07] MEDS: LEVOTHYROXINE 100 MCG TAB PO SCH (23:33)
[2022-02-07] MEDS: oxyCODONE-APAP 7.5-325MG 1 EACH TAB PO PRN (23:35)
[2022-02-08] MEDS: CHERRY FLAVOR 60 ML BOTTLE PO SCH ×4 (00:46→17:54)
[2022-02-08] MEDS: VANCOMYCIN ORAL SOLUTION 250 MG/5 ML BOTTLE PO SCH ×4 (00:47→17:53)
[2022-02-08] MEDS: oxyCODONE-APAP 7.5-325MG 1 EACH TAB PO PRN ×2 (06:16→16:47)
[2022-02-08] MEDS: SODIUM CHLORIDE 0.9% 1,000 ML IV SCH ×3 (06:17→17:54)
[2022-02-08] MEDS ORDERED: NON FORMULARY DRUG (Omega-3 Fatty Acids [Omega-3] 1,000 MG Capsule) PO SCH (09:00)
[2022-02-08] MEDS ORDERED: PANTOPRAZOLE SODIUM 40 MG GRANULE PKT PO SCH (09:00)
[2022-02-08] MEDS: amLODIPine 10 MG TAB PO SCH (09:20)
[2022-02-08] MEDS: PANTOPRAZOLE 40 MG TABLET PO SCH (09:20)
[2022-02-08] MEDS: ASCORBIC ACID 500 MG TAB PO SCH (09:20)
[2022-02-08] MEDS: CHOLECALCIFEROL 25 MCG (1000 IU) TABLET PO SCH (09:20)
[2022-02-08] MEDS: SERTRALINE 100 MG TAB PO SCH (09:20)
[2022-02-08] MEDS: METOPROLOL TARTRATE 50 MG TAB PO SCH ×2 (09:20→21:42)
[2022-02-08] MEDS: MAGNESIUM OXIDE 400 MG TAB PO SCH ×2 (09:20→21:42)
[2022-02-08] MEDS: RALOXIFENE 60 MG TAB PO SCH (09:21)
[2022-02-08 11:23] LABS: Basophils # (A) 0.02 X 10*3/uL (0.00-0.10); Basophils % (A) 0.3 %; Eosinophils # (A) 0.14 X 10*3/uL (0.04-0.35); Eosinophils % (A) 1.8 %; HGB 9.5 g/dL (12.0-15.0); Immature Grans, Automated 0.5 %; Immature Platelet Fraction 10.9 % (1.1-6.1); Lymphocytes # (A) 0.36 X 10*3/uL (0.90-5.00); Lymphocytes % (A) 4.6 %; MCH 28.6 pg (27.0-32.0); MCHC 30.6 g/dL (32.0-37.0); MCV 93.4 fL (80.0-97.0); Mean Platelet Volume 13.5 fL (9.5-12.2); Monocytes % (A) 5.1 %; NRBC Per 100 WBC 0 /100 WBCS (0.0-0.0); Neutrophils # (A) 6.83 X 10*3/uL (1.80-7.70); Neutrophils % (A) 87.7 %; Platelet Count 101 X 10*3/uL (140-440); RBC 3.32 X 10*6/uL (4.10-5.20); RBC Morphology NORMAL; WBC 7.79 X 10*3/uL (4.50-10.00)
[2022-02-08] MEDS ORDERED: ASPIRIN 81 MG PO STA (11:36)
[2022-02-08 11:54] LABS: African American GFR (CKD) 66.2 (60.0-200.0); Anion Gap 15.1 mmol/L (10.00-18.00); BUN/Creat Ratio 22.94 Ratio (12.00-20.00); Blood Urea Nitrogen 22.5 mg/dL (9.0-27.0); Calcium 8.5 mg/dL (8.7-10.3); Carbon Dioxide 18.3 mmol/L (20.0-27.5); Non-African American GFR(CKD) 57.2 (60.0-200.0); Potassium 4.1 mmol/L (3.5-5.5)
--- NOTE | 2022-02-08 12:27 | US ---
EXAMINATION TYPE: US venous doppler duplex LE BI DATE OF EXAM: 02/08/2022 12:19 PM COMPARISON: NONE CLINICAL HISTORY: leg swelling. SIDE PERFORMED: Bilateral TECHNIQUE: The lower extremity deep venous system is examined utilizing real time linear array sonog jamey with graded compression, doppler sonography and color-flow sonography. VESSELS IMAGED: Common Femoral Vein Deep Femoral Vein Greater Saphenous Vein * Femoral Vein Popliteal Vein Small Saphenous Vein * Proximal Calf Veins, not seen on right, patient unable to well abduct her leg (* superficial vessels) Right Leg: Negative for DVT Left Leg: Negative for DVT IMPRESSION: The deep venous systems of both lower extremities are patent and compressible with augmentable flow. There is no evidence of DVT.
--- NOTE | 2022-02-08 13:44 | P.HPIM ---
History of Present Illness This is a pleasant 71 years old female with past medical history of COPD, Fibromyalgia, Osteoarthritis reumatoid Arthritis, Pt tested covid + 03/07/21 [facility] ER. ,Renal carcinoma with surgery, status post L partial nephrectomy, hepatitis C successfully tx with harvoni, bronchitis, hypothyroid, migraines, L wrist fracture with surgery then osteomylitis/nonunion L forearm/L wrist-no use of L hand and ulcer on L wrist, 3 lumbar spine surgery in 2 cervical spine surgery Patient presents initially because her left leg gave out when she was walking into her daughter scar, she mostly fell about her daughter helped to touch her and brought her to the floor without hitting her head or any part of her josselyn ycardia and she states. She denies dizziness or syncope as well. She states that her left leg has been getting weak over the last 2-3 days, but it is not progressive. She has also some numbness around the left knee and ankle which is also new for her. For the last few weeks she's been complaining of from pain in both legs, both cultures and thighs. No thrills She denies headache currently but she's been complaining from some headache likely especially in her neck where she has history of neck surgeries and lower back surgeries before and she thinks her headache as well as to her neck. How ever it is mild now. No blurred vision or slurred speech. She has history of back surgery many years ago, last one was 2010. She has chronic low back pain with no recent worsening. She's following up with pain clinic. She quit smoking last April, denies alcohol or illicit drugs. Chest some diarrhea for 2 weeks about 4-6 times per day which is watery and loose but no blood. No abdominal pain with vomiting She denies dysuria or urgency or change in frequency. Patient also on home oxygen more than a year since she's been diagnosed with Covid, and it is little harder for her to breathe lately with some cough and yellow white phlegm for the last 5 days with no chest pain Patient is saturating 99% on 4 L oxygen via nasal cannula. Rest of vitals are stable. Patient is tachypneic at 22 CBC showed only mild anemia with hemoglobin of 11.1. Leukocytosis normal. INR is normal 1.0. Sodium 136, potassium 5.2, creatinine 1.4 Liver enzymes not elevated. Troponin is negative less than 0.012. TSH is low 0.4 but normal T4 1 0.6. Urinalysis is suspicious of infection Coronavirus nondetected. EKG showing normal sinus rhythm at [address]-T changes and QTC 431 Chest x-ray: Chronic prominence of pulmonary interstitium is unchanged. No definitive focal infiltrates. Mild prominence of the left hilum presents. Consider underlying pulmonary hypertension Venous ultrasound is negative for DVT Review of Systems CONSTITUTIONAL: No fever, no malaise, no fatigue. HEENT: No recent visual problems or hearing problems. Denied any sore throat. CARDIOVASCULAR: No orthopnea, PND, no palpitations, no syncope. PULMONARY: No shortness of breath, no cough, no hemoptysis. GASTROINTESTINAL: No diarrhea, no nausea, no vomiting, no abdominal pain. Norm oactive bowel sounds. NEUROLOGICAL: No headaches, no weakness, no numbness. HEMATOLOGICAL: Denies any bleeding or petechiae. GENITOURINARY: Denies any burning micturition, frequency, or urgency. MUSCULOSKELETAL/RHEUMATOLOGICAL: Denies any joint pain, swelling, or any muscle pain. ENDOCRINE: Denies any polyuria or polydipsia. Past Medical History Past Medical History: Cancer, COPD, Fibromyalgia, Osteoarthritis (OA), Pneumonia, Rheumatoid Arthritis (RA) Additional Past Medical History / Comment(s): Pt tested covid + 03/07/21 [facility] ER. 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 L hand and ulcer on L wrist History of Any Multi-Drug Resistant Organisms: None Reported Date of last positivie culture/infection: 01/30/22 MDRO Source:: stool Past Surgical History: Back Surgery, Hysterectomy, Joint Replacement, Orthopedic Surgery Additional Past Surgical History / Comment(s): L partial nephrectomy, R wrist surgery for fracture, 3 L spine surgeries, 2 cervical surgeries, L hemiarthroplasty d/t fracture, colonoscopy Past Anesthesia/Blood Transfusion Reactions: No Reported Reaction Past Psychological History: Depression Additional Psychological History / Comment(s): Pt resides alone. She uses a walker to ambulate. She does not drive, her braeden drives her places. Smoking Status: Former smoker Past Alcohol Use History: None Reported Additional Past Alcohol Use History / Comment(s): Pt started smoking in 1962 and quit in 2019. She denied any alcohol use. Past Drug Use History: None Reported Additional Drug Use History / Comment(s): Pt denied any drug use - Past Family History Father Family Medical History: Cancer Additional Family Medical History / Comment(s): LUNG CA Mother Family Medical History: Osteoarthritis (OA) Medications and Allergies Home Medications Medication Instructions Recorded Confirmed Type Raloxifene [Evista] 60 mg PO DAILY 02/07/15 02/07/22 History Sertraline HCl [Zoloft] 200 mg PO DAILY 02/07/15 02/07/22 History risperiDONE [RisperDAL] 2 mg PO HS 04/05/15 02/07/22 History Ascorbic Acid [Vitamin C] 500 mg PO DAILY 01/14/20 02/07/22 History busPIRone HCl [Buspar] 10 mg PO BID PRN 01/14/20 02/07/22 History traZODone HCL 100 mg PO HS 01/14/20 02/07/22 History Naproxen 500 mg PO BID PRN 03/07/21 02/07/22 History Cholecalciferol [Vitamin D3 (25 25 mcg PO DAILY 12/16/21 02/07/22 History Mcg = 1000 Iu)] Dicyclomine HCl 10 mg PO QID PRN 12/16/21 02/07/22 History Ergocalciferol (Vitamin D2) 1,250 mcg PO TH 12/16/21 02/07/22 History [Drisdol (50,000 Iu)] Levothyroxine Sodium [Synthroid] 100 mcg PO HS 12/16/21 02/07/22 History Keymar-3 Fatty Acids [Keymar-3] 1,000 mg PO DAILY 12/16/21 02/07/22 History amLODIPine [Norvasc] 10 mg PO DAILY #90 tab 12/20/21 02/07/22 Rx hydroCHLOROthiazide [Hydrodiuril] 25 mg PO DAILY #90 tab 12/20/21 02/07/22 Rx lisinopriL [Zestril] 20 mg PO BID #180 tab 12/20/21 02/07/22 Rx oxyCODONE-APAP 7.5-325MG [Percocet 1 tab PO Q6H PRN #12 tab 12/24/21 02/07/22 Rx 7.5-325 mg] Atorvastatin [Lipitor] 20 mg PO HS 01/14/22 02/07/22 History Omeprazole 20 mg PO DAILY 01/14/22 02/07/22 History Albuterol Sulfate [Ventolin HFA] 2 puff INHALATION RT-Q6H PRN 01/30/22 02/07/22 History Pantoprazole Sodium 40 mg PO DAILY 01/30/22 02/07/22 History Acetaminophen Tab [Tylenol] 650 mg PO Q6HR PRN tab 02/03/22 02/07/22 Rx Magnesium Oxide [Mag-Ox] 400 mg PO BID 5 Days #10 tab 02/03/22 02/07/22 Rx Metoprolol Tartrate [Lopressor] 50 mg PO BID #60 tab 02/03/22 02/07/22 Rx Vancomycin Oral Solution 250 mg PO Q6HR 10 Days #200 ml 02/05/22 02/07/22 Rx Allergies Allergy/AdvReac Type Severity Reaction Status Date / Time Penicillins Allergy Dyspnea Verified 02/07/22 17:13 aspirin AdvReac Nausea & Verified 02/07/22 17:13 Vomiting morphine AdvReac Hallucinati Verified 02/07/22 17:13 ons Physical Exam Vitals: Vital Signs Temp Pulse Pulse Resp BP BP Pulse Ox 02/08/22 07:11 97 02/08/22 02:10 98.1 F 76 20 133/77 96 02/07/22 20:33 98.8 F 76 22 136/79 99 02/07/22 20:15 22 02/07/22 18:48 98.5 F 69 18 127/79 99 02/07/22 16:26 66 18 122/57 99 02/07/22 15:01 98.7 F 67 18 124/67 99 Intake and Output 02/07/22 02/08/22 02/08/22 22:59 06:59 14:59 Other: Voiding Method Toilet Weight 86.183 kg GENERAL: The patient is alert and oriented x3, not in any acute distress. Well developed, well nourished. HEENT: Pupils are round and equally reacting to light. EOMI. No scleral icterus. No conjunctival pallor. Normocephalic, atraumatic. No pharyngeal erythema. No thyromegaly. CARDIOVASCULAR: S1 and S2 present. No murmurs, rubs, or gallops. -PULMONARY: Chest is clear to auscultation, no wheezing or crackles. Some coarse crepitation bilaterally, some scattered wheezing, mild ABDOMEN: Soft, nontender, nondistended, normoactive bowel sounds. No palpable organomegaly. MUSCULOSKELETAL: No joint swelling or deformity. EXTREMITIES: No cyanosis, clubbing, or pedal edema. NEUROLOGICAL: Gross neurological examination did not reveal any focal deficits. SKIN: No rashes. No petechiae Results CBC & Chem 7: 02/08/22 06:38 02/08/22 06:38 Labs: Abnormal Lab Results - Last 24 Hours (Table) 02/07/22 02/07/22 02/07/22 Range/Units 15:38 15:38 15:38 RBC 3.69 L (3.80-5.40) m/uL Hgb 11.1 L (11.4-16.0) gm/dL Hct 33.6 L (34.0-46.0) % Lymphocytes # 0.6 L (1.0-4.8) k/uL APTT 20.3 L (22.0-30.0) sec Sodium 136 L (137-145) mmol/L Potassium 5.2 H (3.5-5.1) mmol/L Carbon Dioxide 20 L (22-30) mmol/L BUN 33 H (7-17) mg/dL Creatinine 1.40 H (0.52-1.04) mg/dL Glucose 103 H (74-99) mg/dL TSH 0.430 L (0.465-4.680) mIU/L Urine Appearance (Clear) Urine Protein (Negative) Urine Blood (Negative) Urine Nitrite (Negative) Ur Leukocyte Esterase (Negative) Urine RBC (0-5) /hpf Urine WBC (0-5) /hpf Urine WBC Clumps (None) /hpf Ur Squamous Epith Cells (0-4) /hpf Urine Bacteria (None) /hpf Hyaline Casts (0-2) /lpf Urine Mucus (None) /hpf 02/07/22 Range/Units 16:26 RBC (3.80-5.40) m/uL Hgb (11.4-16.0) gm/dL Hct (34.0-46.0) % Lymphocytes # (1.0-4.8) k/uL APTT (22.0-30.0) sec Sodium (137-145) mmol/L Potassium (3.5-5.1) mmol/L Carbon Dioxide (22-30) mmol/L BUN (7-17) mg/dL Creatinine (0.52-1.04) mg/dL Glucose (74-99) mg/dL TSH (0.465-4.680) mIU/L Urine Appearance Turbid H (Clear) Urine Protein 1+ H (Negative) Urine Blood Moderate H (Negative) Urine Nitrite Positive H (Negative) Ur Leukocyte Esterase Large H (Negative) Urine RBC 93 H (0-5) /hpf Urine WBC >182 H (0-5) /hpf Urine WBC Clumps Many H (None) /hpf Ur Squamous Epith Cells 22 H (0-4) /hpf Urine Bacteria Moderate H (None) /hpf Hyaline Casts 85 H (0-2) /lpf Urine Mucus Few H (None) /hpf Thrombosis Risk Factor Assmnt - Choose All That Apply Each Factor Represents 1 point: Abnormal pulmonary function (COPD), Obesity (BMI >25) Each Risk Factor Represents 2 Points: Age 61-74 years Thrombosis Risk Factor Assessment Total Risk Factor Score: 4 Thrombosis Risk Factor Assessment Level: Moderate Risk Assessment and Plan Assessment: Possible left leg weakness and numbness with some decreased sensation over the last 2-3 days prior to admission. Also patient fell but her daughter hold her to the ground. Bilateral leg pain for several weeks Possible Acute urinary tract infection mild reactive gastroenteritis Acute kidney injury. Recent history of C. diff colitis, currently on oral vancomycin COPD, possible acute exacerbation chronic hypoxic respiratory failure History of fibromyalgia History of osteoarthritis History of rheumatoid arthritis Recent history of Covid infection in 2020 History of renal cell carcinoma status post left partial nephrectomy History of hepatitis C successfully treated Hypothyroidism History of migraine History of degenerative disc disease status post 3 lumbar spine surgery in 2 cervical spine surgeries. Plan: This is a pleasant 71 years old female who presents with acute urinary tract infection.Left leg weakness/numbness, worsening dyspnea and abnormal chest x-ray Give one dose of aspirin, neurology consult. Continue with the neuro check Continue with ceftriaxone, infectious disease consult on the case continue with oral vancomycin Consults pulmonary team. Check forcalcitonin and proBNP. Add Pulmicort and breathing treatment low or normal saline, 30 mL per hour down to 75 mL per hour Labs and medication were reviewed.. Continue same treatment. Continue with symptomatic treatment. Resume home medication. Monitor lytes and vitals. DVT and GI prophylaxis. Further recommendations depends on the clinical course of the patient DVT prophylaxis: Subcutaneous heparin GI Prophylaxis: Pepcid PT/OT: Pending Prognosis is guarded
--- NOTE | 2022-02-08 15:21 | P.CNPUL ---
History of Present Illness Consult date: 02/08/22 Requesting physician: Chris Hassan Reason for consult: COPD Chief complaint: Weakness, presyncope History of present illness: Physical pleasant 71-year-old female patient with known history of fibromyalgia, osteoarthritis, rheumatoid arthritis, renal cell carcinoma with left partial nephrectomy, hepatitis C treated with her Beatrice, hypothyroidism, former smoker, COPD. She was brought in by EMS yesterday for weakness and near syncope. She started to feel her legs give out her daughter was present and assisted her to the ground. Denied loss of consciousness. She had recently been discharged from here for C. difficile colitis and was on oral vancomycin. Chest x-ray revealed chronic prominence of the pulmonary interstitium. Unchanged. Note definite focal infiltrates. Possible underlying pulmonary arterial hypertension. White count 7.7. Hemoglobin 9.5. Platelets 101. Sodium 141. Potassium 4.1. Bicarb 18. BUN 22. Creatinine 1.0. ProBNP 2770. Urine with moderate bacteria many WBCs and positive nitrates. Stone virus by PCR not detected. Dopplers of the lower extremities negative for DVT. She is seen today in follow-up consultation on the regular medical floor. Awake and alert in no acute distress. She denies any shortness of breath, cough or congestion. No fever chills. Taking O2 saturations in the mid 90s on 4 L/m per nasal cannula. She's afebrile. Hemodynamically stable. She's been initiated and DuoNeb inhalations. Heparin for DVT prophylaxis. Oral vancomycin. Review of Systems REVIEW OF SYSTEMS: CONSTITUTIONAL: Generalized weakness. Denies any recent significant weight loss or weight gain. EYES: Denies change in vision. EARS, NOSE, MOUTH, THROAT: Denies headaches, denies sore throat. CARDIOVASCULAR: Near-syncope. No chest pain or palpitations RESPIRATORY: Denies shortness of breath, cough, congestion or hemoptysis. GASTROINTESTINAL: Denies change in appetite, denies abdominal pain GENITOURINARY: Denies hematuria, denies infections. MUSKULOSKELETAL: Denies pain, denies swelling. INTEGUMENTARY: Denies rash, denies eczema. NEUROLOGICAL: Denies recent memory loss, no recent seizure activity. PSYCHIATRIC: Denies anxiety, denies depression. HEMATOLOGIC/LYMPHATIC: Denies anemia, denies enlarged lymph nodes. Past Medical History Past Medical History: Cancer, COPD, Fibromyalgia, Osteoarthritis (OA), Pneumonia, Rheumatoid Arthritis (RA) Additional Past Medical History / Comment(s): Pt tested covid + 03/07/21 [facility] ER. 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 L hand and ulcer on L wrist History of Any Multi-Drug Resistant Organisms: None Reported Date of last positivie culture/infection: 01/30/22 MDRO Source:: stool Past Surgical History: Back Surgery, Hysterectomy, Joint Replacement, Orthopedic Surgery Additional Past Surgical History / Comment(s): L partial nephrectomy, R wrist surgery for fracture, 3 L spine surgeries, 2 cervical surgeries, L hemiarthroplasty d/t fracture, colonoscopy Past Anesthesia/Blood Transfusion Reactions: No Reported Reaction Past Psychological History: Depression Additional Psychological History / Comment(s): Pt resides alone. She uses a walker to ambulate. She does not drive, her braeden drives her places. Smoking Status: Former smoker Past Alcohol Use History: None Reported Additional Past Alcohol Use History / Comment(s): Pt started smoking in 1962 and quit in 2019. She denied any alcohol use. Past Drug Use History: None Reported Additional Drug Use History / Comment(s): Pt denied any drug use - Past Family History Father Family Medical History: Cancer Additional Family Medical History / Comment(s): LUNG CA Mother Family Medical History: Osteoarthritis (OA) Medications and Allergies Home Medications Medication Instructions Recorded Confirmed Type Raloxifene [Evista] 60 mg PO DAILY 02/07/15 02/07/22 History Sertraline HCl [Zoloft] 200 mg PO DAILY 02/07/15 02/07/22 History risperiDONE [RisperDAL] 2 mg PO HS 04/05/15 02/07/22 History Ascorbic Acid [Vitamin C] 500 mg PO DAILY 01/14/20 02/07/22 History busPIRone HCl [Buspar] 10 mg PO BID PRN 01/14/20 02/07/22 History traZODone HCL 100 mg PO HS 01/14/20 02/07/22 History Naproxen 500 mg PO BID PRN 03/07/21 02/07/22 History Cholecalciferol [Vitamin D3 (25 25 mcg PO DAILY 12/16/21 02/07/22 History Mcg = 1000 Iu)] Dicyclomine HCl 10 mg PO QID PRN 12/16/21 02/07/22 History Ergocalciferol (Vitamin D2) 1,250 mcg PO TH 12/16/21 02/07/22 History [Drisdol (50,000 Iu)] Levothyroxine Sodium [Synthroid] 100 mcg PO HS 12/16/21 02/07/22 History [place]-3 Fatty Acids [[place]-3] 1,000 mg PO DAILY 12/16/21 02/07/22 History amLODIPine [Norvasc] 10 mg PO DAILY #90 tab 12/20/21 02/07/22 Rx hydroCHLOROthiazide [Hydrodiuril] 25 mg PO DAILY #90 tab 12/20/21 02/07/22 Rx lisinopriL [Zestril] 20 mg PO BID #180 tab 12/20/21 02/07/22 Rx oxyCODONE-APAP 7.5-325MG [Percocet 1 tab PO Q6H PRN #12 tab 12/24/21 02/07/22 Rx 7.5-325 mg] Atorvastatin [Lipitor] 20 mg PO HS 01/14/22 02/07/22 History Omeprazole 20 mg PO DAILY 01/14/22 02/07/22 History Albuterol Sulfate [Ventolin HFA] 2 puff INHALATION RT-Q6H PRN 01/30/22 02/07/22 History Pantoprazole Sodium 40 mg PO DAILY 01/30/22 02/07/22 History Acetaminophen Tab [Tylenol] 650 mg PO Q6HR PRN tab 02/03/22 02/07/22 Rx Magnesium Oxide [Mag-Ox] 400 mg PO BID 5 Days #10 tab 02/03/22 02/07/22 Rx Metoprolol Tartrate [Lopressor] 50 mg PO BID #60 tab 02/03/22 02/07/22 Rx Vancomycin Oral Solution 250 mg PO Q6HR 10 Days #200 ml 02/05/22 02/07/22 Rx Allergies Allergy/AdvReac Type Severity Reaction Status Date / Time Penicillins Allergy Dyspnea Verified 02/07/22 17:13 aspirin AdvReac Nausea & Verified 02/07/22 17:13 Vomiting morphine AdvReac Hallucinati Verified 02/07/22 17:13 ons Physical Exam Vitals: Vital Signs Temp Pulse Pulse Resp BP BP Pulse Ox 02/08/22 08:00 98.8 F 77 16 103/65 95 02/08/22 07:11 97 02/08/22 02:10 98.1 F 76 20 133/77 96 02/07/22 20:33 98.8 F 76 22 136/79 99 02/07/22 20:15 22 02/07/22 18:48 98.5 F 69 18 127/79 99 02/07/22 16:26 66 18 122/57 99 Intake and Output 02/08/22 02/08/22 02/08/22 06:59 14:59 22:59 Other: Voiding Method Toilet Bedside Commode GENERAL EXAM: Alert, pleasant 71-year-old female patient on 4 L nasal cannula, comfortable in no apparent distress. HEAD: Normocephalic. EYES: Normal reaction of pupils, equal size. NOSE: Clear with pink turbinates. THROAT: No erythema or exudates. NECK: No masses, no JVD. CHEST: No chest wall deformity. LUNGS: Equal air entry with no crackles, wheeze, rhonchi or dullness. Diminished. CVS: S1 and S2 normal with no audible murmur, regular rhythm. ABDOMEN: No hepatosplenomegaly, normal bowel sounds, no guarding or rigidity. SPINE: No scoliosis or deformity SKIN: No rashes CENTRAL NERVOUS SYSTEM: No focal deficits, tone is normal in all 4 extremities. EXTREMITIES: There is no peripheral edema. No clubbing, no cyanosis. Peripheral pulses are intact. Results - Laboratory Findings CBC and BMP: 02/08/22 06:38 02/08/22 06:38 PT/INR, D-dimer PT 10.8 sec (9.0-12.0) 02/07/22 15:38 INR 1.0 (<1.2) 02/07/22 15:38 Abnormal lab findings: Abnormal Labs 02/07/22 02/07/22 02/07/22 15:38 15:38 15:38 RBC 3.69 L Hgb 11.1 L Hct 33.6 L MCHC Plt Count Plt Count Comment MPV Lymphocytes # 0.6 L Immature Plt Fraction APTT 20.3 L Sodium 136 L Potassium 5.2 H Carbon Dioxide 20 L BUN 33 H Creatinine 1.40 H Est GFR (CKD-EPI)NonAf BUN/Creatinine Ratio Glucose 103 H Calcium TSH 0.430 L Urine Appearance Urine Protein Urine Blood Urine Nitrite Ur Leukocyte Esterase Urine RBC Urine WBC Urine WBC Clumps Ur Squamous Epith Cells Urine Bacteria Hyaline Casts Urine Mucus 02/07/22 02/08/22 02/08/22 16:26 06:38 06:38 RBC 3.32 L Hgb 9.5 L Hct 31.0 L MCHC 30.6 L Plt Count 101 L Plt Count Comment DECREASED A MPV 13.5 H Lymphocytes # 0.36 L Immature Plt Fraction 10.9 H APTT Sodium Potassium Carbon Dioxide 18.3 L BUN Creatinine Est GFR (CKD-EPI)NonAf 57.2 L BUN/Creatinine Ratio 22.94 H Glucose Calcium 8.5 L TSH Urine Appearance Turbid H Urine Protein 1+ H Urine Blood Moderate H Urine Nitrite Positive H Ur Leukocyte Esterase Large H Urine RBC 93 H Urine WBC >182 H Urine WBC Clumps Many H Ur Squamous Epith Cells 22 H Urine Bacteria Moderate H Hyaline Casts 85 H Urine Mucus Few H - Diagnostic Findings Chest x-ray: image reviewed Assessment and Plan Assessment: 1 Generalized weakness and near syncope secondary to suspected urinary tract infection 2 Acute urinary tract infection, culture pending 3 Recent admission for C. difficile colitis, continued on oral vancomycin 4 Stable COPD with chronic hypoxic respiratory failure 5 History of 40 year smoking 6 History of hepatitis C, treated with Harvoni 7 Hypothyroidism 8 Fibromyalgia 9 Rheumatoid arthritis 10 Osteoarthritis with multiple orthopedic surgeries 11 History of COVID-19 infection Plan: The patient was seen and evaluated Chest x-ray and labs reviewed COPD stable, continued on bronchodilators We will follow as needed I have personally seen and examined the patient, performed the documentation and the assessment and plan as written. Number of minutes spent on the visit: 20.
--- NOTE | 2022-02-08 18:34 | P.CNNES ---
History of Present Illness Consult date: 02/08/22 Reason for Consult: Left arm and leg weakness History of Present Illness: The patient is a 71-year-old female who is seen in neurologic consultation on February 08, 2022, via teleneurology. The patient is being seen because of concerns regarding left-sided weakness. The patient reports that she has had a few falls. She feels that her legs are weak secondary to infection. When asked more specifically, the patient does report left-sided weakness for approximately one week. She does report having the left-sided weakness, when she was in the hospital most recently. The patient was recently discharged from [facility] and is being treated for C. difficile, with vancomycin. The patient reports that her legs began to give out, when she was walking to her vehicle. She did not fall. She apparently was lowered to the floor, by her daughter. The patient denies weakness in her left arm. She denies visual changes. She denies headache. Patient denies difficulty with speech and swallowing. She denies paresthesias in her arms and legs. The patient does report a history of neck pain. The patient has a history of prior neck and low back surgeries. She has chronic low back pain. . Review of Systems Negative except for that noted in history of chief complaint. Past Medical History Past Medical History: Cancer, COPD, Fibromyalgia, Osteoarthritis (OA), Pneumonia, Rheumatoid Arthritis (RA) Additional Past Medical History / Comment(s): Pt tested covid + 03/07/21 [facility] ER. 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 hand and ulcer on R wrist History of Any Multi-Drug Resistant Organisms: None Reported Date of last positivie culture/infection: 01/30/22 MDRO Source:: stool Past Surgical History: Back Surgery, Hysterectomy, Joint Replacement, Orthopedic Surgery Additional Past Surgical History / Comment(s): L partial nephrectomy, R wrist surgery for fracture, 3 L spine surgeries, 2 cervical surgeries, L hemiarthroplasty d/t fracture, colonoscopy Past Anesthesia/Blood Transfusion Reactions: No Reported Reaction Past Psychological History: Depression Additional Psychological History / Comment(s): Pt resides alone. She uses a walker to ambulate. She does not drive, her braeden drives her places. Smoking Status: Former smoker Past Alcohol Use History: None Reported Additional Past Alcohol Use History / Comment(s): Pt started smoking in 1962 and quit in 2019. She denied any alcohol use. Past Drug Use History: None Reported Additional Drug Use History / Comment(s): Pt denied any drug use - Past Family History Father Family Medical History: Cancer Additional Family Medical History / Comment(s): LUNG CA Mother Family Medical History: Osteoarthritis (OA) Medications and Allergies Home Medications Medication Instructions Recorded Confirmed Type Raloxifene [Evista] 60 mg PO DAILY 02/07/15 02/07/22 History Sertraline HCl [Zoloft] 200 mg PO DAILY 02/07/15 02/07/22 History risperiDONE [RisperDAL] 2 mg PO HS 04/05/15 02/07/22 History Ascorbic Acid [Vitamin C] 500 mg PO DAILY 01/14/20 02/07/22 History busPIRone HCl [Buspar] 10 mg PO BID PRN 01/14/20 02/07/22 History traZODone HCL 100 mg PO HS 01/14/20 02/07/22 History Naproxen 500 mg PO BID PRN 03/07/21 02/07/22 History Cholecalciferol [Vitamin D3 (25 25 mcg PO DAILY 12/16/21 02/07/22 History Mcg = 1000 Iu)] Dicyclomine HCl 10 mg PO QID PRN 12/16/21 02/07/22 History Ergocalciferol (Vitamin D2) 1,250 mcg PO TH 12/16/21 02/07/22 History [Drisdol (50,000 Iu)] Levothyroxine Sodium [Synthroid] 100 mcg PO HS 12/16/21 02/07/22 History [place]-3 Fatty Acids [[place]-3] 1,000 mg PO DAILY 12/16/21 02/07/22 History amLODIPine [Norvasc] 10 mg PO DAILY #90 tab 12/20/21 02/07/22 Rx hydroCHLOROthiazide [Hydrodiuril] 25 mg PO DAILY #90 tab 12/20/21 02/07/22 Rx lisinopriL [Zestril] 20 mg PO BID #180 tab 12/20/21 02/07/22 Rx oxyCODONE-APAP 7.5-325MG [Percocet 1 tab PO Q6H PRN #12 tab 12/24/21 02/07/22 Rx 7.5-325 mg] Atorvastatin [Lipitor] 20 mg PO HS 01/14/22 02/07/22 History Omeprazole 20 mg PO DAILY 01/14/22 02/07/22 History Albuterol Sulfate [Ventolin HFA] 2 puff INHALATION RT-Q6H PRN 01/30/22 02/07/22 History Pantoprazole Sodium 40 mg PO DAILY 01/30/22 02/07/22 History Acetaminophen Tab [Tylenol] 650 mg PO Q6HR PRN tab 02/03/22 02/07/22 Rx Magnesium Oxide [Mag-Ox] 400 mg PO BID 5 Days #10 tab 02/03/22 02/07/22 Rx Metoprolol Tartrate [Lopressor] 50 mg PO BID #60 tab 02/03/22 02/07/22 Rx Vancomycin Oral Solution 250 mg PO Q6HR 10 Days #200 ml 02/05/22 02/07/22 Rx Allergies Allergy/AdvReac Type Severity Reaction Status Date / Time Penicillins Allergy Dyspnea Verified 02/07/22 17:13 aspirin AdvReac Nausea & Verified 02/07/22 17:13 Vomiting morphine AdvReac Hallucinati Verified 02/07/22 17:13 ons Physical Examination - Vital Signs Vital Signs: Vital Signs Temp Pulse Pulse Resp BP BP Pulse Ox 02/08/22 08:00 98.8 F 77 16 103/65 95 02/08/22 07:11 97 02/08/22 02:10 98.1 F 76 20 133/77 96 02/07/22 20:33 98.8 F 76 22 136/79 99 02/07/22 20:15 22 02/07/22 18:48 98.5 F 69 18 127/79 99 Intake and Output 02/08/22 02/08/22 02/08/22 06:59 14:59 22:59 Other: Voiding Method Toilet Bedside Commode Gen.: The patient is well-nourished. She is obese. She is reclining in the bed. She is in no acute distress. HEENT: Head is atraumatic, normocephalic. Fundus not visualized. There is no scleral icterus. Mucous membranes are moist. Neck: Supple without carotid bruits Heart: Regular rate and rhythm Lungs: Essentially clear, no respiratory distress Extremities: The patient has a dressing on the right wrist. There is a right wrist drop with non-mobility of the fingers of the right hand. Neurological examination Mental status: The patient is awake, alert and oriented 3. Her speech is clear. There is no dysarthria or aphasia Cranial nerves: Pupils are equal at 2 mm and reactive. Visual hewitt are full to confrontation. Extraocular movements are intact. There is no nystagmus. Facial sensations intact. There is no facial asymmetry. Hearing is diminished. Uvula and palate are midline. Shoulder shrug is symmetric. Tongue protrudes midline. Motor: Left upper extremity strength 5/5. Right upper extremity strength is not assessed. Bilateral hip flexors and extensors 5/5. Bilateral ankle plantar and dorsiflexors 5/5. Sensation: Grossly intact to light touch throughout. There is no extinction with double simultaneous stimulation. Coordination: Left-sided finger to nose testing is intact. There is no difficulty with left sided rapid alternating movements. Right side not assessed secondary to nonfunctional right hand and arm Deep tendon reflexes: 2+/4+ in the left upper extremity. Lower extremity reflexes are absent. Gait: Not assessed. The patient is able to reposition herself and sit on the edge of the bed without difficulty. Results - Laboratory Findings CBC and BMP: 02/08/22 06:38 02/08/22 06:38 Abnormal Lab Findings: Abnormal Labs 02/07/22 02/07/22 02/07/22 15:38 15:38 15:38 RBC 3.69 L Hgb 11.1 L Hct 33.6 L MCHC Plt Count Plt Count Comment MPV Lymphocytes # 0.6 L Immature Plt Fraction APTT 20.3 L Sodium 136 L Potassium 5.2 H Carbon Dioxide 20 L BUN 33 H Creatinine 1.40 H Est GFR (CKD-EPI)NonAf BUN/Creatinine Ratio Glucose 103 H Calcium TSH 0.430 L Urine Appearance Urine Protein Urine Blood Urine Nitrite Ur Leukocyte Esterase Urine RBC Urine WBC Urine WBC Clumps Ur Squamous Epith Cells Urine Bacteria Hyaline Casts Urine Mucus 02/07/22 02/08/22 02/08/22 16:26 06:38 06:38 RBC 3.32 L Hgb 9.5 L Hct 31.0 L MCHC 30.6 L Plt Count 101 L Plt Count Comment DECREASED A MPV 13.5 H Lymphocytes # 0.36 L Immature Plt Fraction 10.9 H APTT Sodium Potassium Carbon Dioxide 18.3 L BUN Creatinine Est GFR (CKD-EPI)NonAf 57.2 L BUN/Creatinine Ratio 22.94 H Glucose Calcium 8.5 L TSH Urine Appearance Turbid H Urine Protein 1+ H Urine Blood Moderate H Urine Nitrite Positive H Ur Leukocyte Esterase Large H Urine RBC 93 H Urine WBC >182 H Urine WBC Clumps Many H Ur Squamous Epith Cells 22 H Urine Bacteria Moderate H Hyaline Casts 85 H Urine Mucus Few H Assessment and Plan Assessment: 1. There are no focal or lateralizing neurologic deficits suggestive of stroke. 2. Current urinary tract infection-this may cause generalized weakness. 3. History of old right hand and wrist injury Plan: 1. Consider physical therapy consultation 2. Your treatment of patient's bladder infection 3. No further neurologic workup is indicated at this time. Thank you for allowing us to participate in the care of this patient. Neurology will sign off at this time. Please call if there are any questions or concerns Time with Patient: Greater than 30 (spent 35 minutes with patient via telemedicine)
[2022-02-08] MEDS: IPRATROPIUM-ALBUTEROL 3 ML NEB INHALATION PRN (20:53)
[2022-02-08] MEDS: BUDESONIDE 0.5 MG/2 ML NEBU INHALATION SCH ×2 (20:53→20:54)
[2022-02-08] MEDS: HEPARIN SODIUM,PORCINE/PF 5,000 UNIT/0.5 ML SYRINGE SQ SCH (21:42)
[2022-02-08] MEDS: LEVOTHYROXINE 100 MCG TAB PO SCH (21:42)
[2022-02-08] MEDS: traZODone HCL 100 MG TAB PO SCH (21:42)
[2022-02-08] MEDS: ATORVASTATIN 20 MG TAB PO SCH (21:42)
[2022-02-08] MEDS: risperiDONE 2 MG TAB PO SCH (21:42)
--- NOTE | 2022-02-09 00:03 | P.CONS ---
History of Present Illness - Reason for Consult Consult date: 02/08/22 Urinary tract infection and recent C. diff Requesting physician: Chris E Sheet - Chief Complaint Weakness and legs give out x one day - History of Present Illness Patient is a 71-year-old female who was recently admitted at this facility with the diarrhea and was diagnosed with ulcerative colitis patient was started on oral vancomycin he did have improvement subsequently patient was discharged home as the patient diarrhea was improving patient mention she was getting ready to go to her primary care doctor for follow-up yesterday when she was walking with the walker her legs give out and she fell to the ground patient denies hitting her head or any loss of consciousness patient subsequently was brought to the ER for further evaluation on arrival to the ER patient was afebrile and no fever had been recorded subsequently patient did have a normal white count with no left shift BUN and creatinine was elevated liver enzymes are normal patient did have a positive UA Covid testing was negative stool for significant back negative blood cultures obtained which are currently pending patient did have a chest x-ray chronic prominence of the pulmonary station unchanged patient was started on Rocephin and oral vancomycin was continued infectious disease was consulted concerning for UTI and recent C. difficile Review of Systems Positive point has been mentioned in the HPI rest of the systems are negative/ Past Medical History Past Medical History: Cancer, COPD, Fibromyalgia, Osteoarthritis (OA), Pneumonia, Rheumatoid Arthritis (RA) Additional Past Medical History / Comment(s): Pt tested covid + 03/07/21 [facility] ER. 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 L hand and ulcer on L wrist History of Any Multi-Drug Resistant Organisms: None Reported Year Discovered:: 01/30/22 MDRO Source:: stool Past Surgical History: Back Surgery, Hysterectomy, Joint Replacement, Orthopedic Surgery Additional Past Surgical History / Comment(s): L partial nephrectomy, R wrist surgery for fracture, 3 L spine surgeries, 2 cervical surgeries, L hemiarthroplasty d/t fracture, colonoscopy Past Anesthesia/Blood Transfusion Reactions: No Reported Reaction Past Psychological History: Depression Additional Psychological History / Comment(s): Pt resides alone. She uses a walker to ambulate. She does not drive, her braeden drives her places. Smoking Status: Former smoker Past Alcohol Use History: None Reported Additional Past Alcohol Use History / Comment(s): Pt started smoking in 1962 and quit in 2019. She denied any alcohol use. Past Drug Use History: None Reported Additional Drug Use History / Comment(s): Pt denied any drug use - Past Family History Father Family Medical History: Cancer Additional Family Medical History / Comment(s): LUNG CA Mother Family Medical History: Osteoarthritis (OA) Medications and Allergies Home Medications Medication Instructions Recorded Confirmed Type Raloxifene [Evista] 60 mg PO DAILY 02/07/15 02/07/22 History Sertraline HCl [Zoloft] 200 mg PO DAILY 02/07/15 02/07/22 History risperiDONE [RisperDAL] 2 mg PO HS 04/05/15 02/07/22 History Ascorbic Acid [Vitamin C] 500 mg PO DAILY 01/14/20 02/07/22 History busPIRone HCl [Buspar] 10 mg PO BID PRN 01/14/20 02/07/22 History traZODone HCL 100 mg PO HS 01/14/20 02/07/22 History Naproxen 500 mg PO BID PRN 03/07/21 02/07/22 History Cholecalciferol [Vitamin D3 (25 25 mcg PO DAILY 12/16/21 02/07/22 History Mcg = 1000 Iu)] Dicyclomine HCl 10 mg PO QID PRN 12/16/21 02/07/22 History Ergocalciferol (Vitamin D2) 1,250 mcg PO TH 12/16/21 02/07/22 History [Drisdol (50,000 Iu)] Levothyroxine Sodium [Synthroid] 100 mcg PO HS 12/16/21 02/07/22 History Wibaux-3 Fatty Acids [Wibaux-3] 1,000 mg PO DAILY 12/16/21 02/07/22 History amLODIPine [Norvasc] 10 mg PO DAILY #90 tab 12/20/21 02/07/22 Rx hydroCHLOROthiazide [Hydrodiuril] 25 mg PO DAILY #90 tab 12/20/21 02/07/22 Rx lisinopriL [Zestril] 20 mg PO BID #180 tab 12/20/21 02/07/22 Rx oxyCODONE-APAP 7.5-325MG [Percocet 1 tab PO Q6H PRN #12 tab 12/24/21 02/07/22 Rx 7.5-325 mg] Atorvastatin [Lipitor] 20 mg PO HS 01/14/22 02/07/22 History Omeprazole 20 mg PO DAILY 01/14/22 02/07/22 History Albuterol Sulfate [Ventolin HFA] 2 puff INHALATION RT-Q6H PRN 01/30/22 02/07/22 History Pantoprazole Sodium 40 mg PO DAILY 01/30/22 02/07/22 History Acetaminophen Tab [Tylenol] 650 mg PO Q6HR PRN tab 02/03/22 02/07/22 Rx Magnesium Oxide [Mag-Ox] 400 mg PO BID 5 Days #10 tab 02/03/22 02/07/22 Rx Metoprolol Tartrate [Lopressor] 50 mg PO BID #60 tab 02/03/22 02/07/22 Rx Vancomycin Oral Solution 250 mg PO Q6HR 10 Days #200 ml 02/05/22 02/07/22 Rx Allergies Allergy/AdvReac Type Severity Reaction Status Date / Time Penicillins Allergy Dyspnea Verified 02/07/22 17:13 aspirin AdvReac Nausea & Verified 02/07/22 17:13 Vomiting morphine AdvReac Hallucinati Verified 02/07/22 17:13 ons Physical Exam Vitals: Vital Signs Temp Pulse Pulse Resp BP BP Pulse Ox 02/08/22 08:00 98.8 F 77 16 103/65 95 02/08/22 07:11 97 02/08/22 02:10 98.1 F 76 20 133/77 96 02/07/22 20:33 98.8 F 76 22 136/79 99 02/07/22 20:15 22 02/07/22 18:48 98.5 F 69 18 127/79 99 02/07/22 16:26 66 18 122/57 99 02/07/22 15:01 98.7 F 67 18 124/67 99 Intake and Output 02/07/22 02/08/22 02/08/22 22:59 06:59 14:59 Other: Voiding Method Toilet Toilet Bedside Commode Weight 86.183 kg GENERAL DESCRIPTION: Elderly female lying in bed, no distress. No tachypnea or accessory muscle of respiration use. HEENT: Shows Pallor , no scleral icterus. Oral mucous membrane is dry. No pharyngeal erythema or thrush NECK: Trachea central, no thyromegaly. LUNGS: Unlabored breathing. Clear to auscultation anteriorly. No wheeze or crackle. HEART: S1, S2, regular rate and rhythm. No loud murmur ABDOMEN: Soft, no tenderness , guarding or rigidity, no organomegaly EXTREMITIES: No edema of feet. SKIN: No rash, no masses palpable. NEUROLOGICAL: The patient is awake, alert, oriented x3, mood and affect normal. Results CBC & Chem 7: 02/08/22 06:38 02/08/22 06:38 Labs: Abnormal Lab Results - Last 24 Hours (Table) 02/07/22 02/07/22 02/07/22 Range/Units 15:38 15:38 15:38 RBC 3.69 L (3.80-5.40) m/uL Hgb 11.1 L (11.4-16.0) gm/dL Hct 33.6 L (34.0-46.0) % MCHC (32.0-37.0) g/dL Plt Count (140-440) X 10*3/uL Plt Count Comment MPV (9.5-12.2) fL Lymphocytes # 0.6 L (1.0-4.8) k/uL Immature Plt Fraction (1.1-6.1) % APTT 20.3 L (22.0-30.0) sec Sodium 136 L (137-145) mmol/L Potassium 5.2 H (3.5-5.1) mmol/L Carbon Dioxide 20 L (22-30) mmol/L BUN 33 H (7-17) mg/dL Creatinine 1.40 H (0.52-1.04) mg/dL Est GFR (CKD-EPI)NonAf (60.0-200.0) BUN/Creatinine Ratio (12.00-20.00) Ratio Glucose 103 H (74-99) mg/dL Calcium (8.7-10.3) mg/dL TSH 0.430 L (0.465-4.680) mIU/L Urine Appearance (Clear) Urine Protein (Negative) Urine Blood (Negative) Urine Nitrite (Negative) Ur Leukocyte Esterase (Negative) Urine RBC (0-5) /hpf Urine WBC (0-5) /hpf Urine WBC Clumps (None) /hpf Ur Squamous Epith Cells (0-4) /hpf Urine Bacteria (None) /hpf Hyaline Casts (0-2) /lpf Urine Mucus (None) /hpf 02/07/22 02/08/22 02/08/22 Range/Units 16:26 06:38 06:38 RBC 3.32 L (3.80-5.40) m/uL Hgb 9.5 L (11.4-16.0) gm/dL Hct 31.0 L (34.0-46.0) % MCHC 30.6 L (32.0-37.0) g/dL Plt Count 101 L (140-440) X 10*3/uL Plt Count Comment DECREASED A MPV 13.5 H (9.5-12.2) fL Lymphocytes # 0.36 L (1.0-4.8) k/uL Immature Plt Fraction 10.9 H (1.1-6.1) % APTT (22.0-30.0) sec Sodium (137-145) mmol/L Potassium (3.5-5.1) mmol/L Carbon Dioxide 18.3 L (22-30) mmol/L BUN (7-17) mg/dL Creatinine (0.52-1.04) mg/dL Est GFR (CKD-EPI)NonAf 57.2 L (60.0-200.0) BUN/Creatinine Ratio 22.94 H (12.00-20.00) Ratio Glucose (74-99) mg/dL Calcium 8.5 L (8.7-10.3) mg/dL TSH (0.465-4.680) mIU/L Urine Appearance Turbid H (Clear) Urine Protein 1+ H (Negative) Urine Blood Moderate H (Negative) Urine Nitrite Positive H (Negative) Ur Leukocyte Esterase Large H (Negative) Urine RBC 93 H (0-5) /hpf Urine WBC >182 H (0-5) /hpf Urine WBC Clumps Many H (None) /hpf Ur Squamous Epith Cells 22 H (0-4) /hpf Urine Bacteria Moderate H (None) /hpf Hyaline Casts 85 H (0-2) /lpf Urine Mucus Few H (None) /hpf Assessment and Plan (1) C. difficile colitis Current Visit: Yes Status: Acute Code(s): A04.72 - ENTEROCOLITIS D/T CLOSTRIDIUM DIFFICILE, NOT SPCF RECUR SNOMED Code(s): 858282869 Plan: 1patient presented to hospital with weakness and a fall more likely related to dehydration as patient did have elevated BUN and creatinine on presentation to the hospital. 2patient with recent C. difficile colitis and the patient diarrhea is improving, vancomycin be continued. 3patient did have a positive UA but no urinary symptoms of burning or frequency clinically not behaving as a symptomatic urinary tract infection with recent C. difficile we will discontinue the Rocephin 4gentle IV fluid We will follow on clinical condition and cultures to further adjust medication if needed Thank you for this consultation will follow this patient along with you
[2022-02-09] MEDS: CHERRY FLAVOR 60 ML BOTTLE PO SCH ×4 (01:50→17:59)
[2022-02-09] MEDS: VANCOMYCIN ORAL SOLUTION 250 MG/5 ML BOTTLE PO SCH ×4 (01:50→17:56)
[2022-02-09] MEDS: SODIUM CHLORIDE 0.9% 1,000 ML IV SCH (05:59)
[2022-02-09] MEDS: BUDESONIDE 0.5 MG/2 ML NEBU INHALATION SCH ×2 (08:29→21:26)
[2022-02-09] MEDS: IPRATROPIUM-ALBUTEROL 3 ML NEB INHALATION PRN ×2 (08:29→21:26)
[2022-02-09] MEDS: amLODIPine 10 MG TAB PO SCH (08:41)
[2022-02-09] MEDS: PANTOPRAZOLE 40 MG TABLET PO SCH (08:41)
[2022-02-09] MEDS: MAGNESIUM OXIDE 400 MG TAB PO SCH ×2 (08:41→22:17)
[2022-02-09] MEDS: METOPROLOL TARTRATE 50 MG TAB PO SCH ×2 (08:41→22:17)
[2022-02-09] MEDS: CHOLECALCIFEROL 25 MCG (1000 IU) TABLET PO SCH (08:41)
[2022-02-09] MEDS: ASCORBIC ACID 500 MG TAB PO SCH (08:41)
[2022-02-09] MEDS: SERTRALINE 100 MG TAB PO SCH (08:41)
[2022-02-09] MEDS: HEPARIN SODIUM,PORCINE/PF 5,000 UNIT/0.5 ML SYRINGE SQ SCH ×2 (08:42→22:16)
[2022-02-09] MEDS: RALOXIFENE 60 MG TAB PO SCH (08:50)
[2022-02-09 11:55] LABS: African American GFR (CKD) 101.5 (60.0-200.0); Anion Gap 10.2 mmol/L (10.00-18.00); BUN/Creat Ratio 14.65 Ratio (12.00-20.00); Blood Urea Nitrogen 9.7 mg/dL (9.0-27.0); Calcium 8.7 mg/dL (8.7-10.3); Carbon Dioxide 20.8 mmol/L (20.0-27.5); Non-African American GFR(CKD) 87.6 (60.0-200.0)
[2022-02-09 13:04] LABS: Basophils # (A) 0.02 X 10*3/uL (0.00-0.10); Basophils % (A) 0.3 %; Eosinophils # (A) 0.14 X 10*3/uL (0.04-0.35); Eosinophils % (A) 2.4 %; HCT 29.4 % (37.2-46.3); HGB 9.2 g/dL (12.0-15.0); Immature Grans, Automated 0.3 %; Immature Platelet Fraction 9.1 % (1.1-6.1); Lymphocytes # (A) 0.53 X 10*3/uL (0.90-5.00); Lymphocytes % (A) 9.3 %; MCH 28.7 pg (27.0-32.0); MCHC 31.3 g/dL (32.0-37.0); MCV 91.6 fL (80.0-97.0); Mean Platelet Volume 12.5 fL (9.5-12.2); Monocytes # (A) 0.35 X 10*3/uL (0.20-1.00); Monocytes % (A) 6.1 %; NRBC Per 100 WBC 0 /100 WBCS (0.0-0.0); Neutrophils # (A) 4.66 X 10*3/uL (1.80-7.70); Neutrophils % (A) 81.6 %; Platelet Count 103 X 10*3/uL (140-440); RBC 3.21 X 10*6/uL (4.10-5.20); RDW 13.9 % (11.5-14.5); WBC 5.72 X 10*3/uL (4.50-10.00)
[2022-02-09 13:05] LABS: Rouleaux PRESENT
[2022-02-09 14:49] LABS: Appearance,Urine Clear (Clear); Bilirubin,Urine Negative (Negative); Blood,Urine Negative (Negative); Color,Urine Light Yellow; Glucose,Urine (UA) Negative (Negative); Ketones,Urine Negative (Negative); Leukocyte Esterase,Urine Negative (Negative); Nitrite,Urine Negative (Negative); PH, Urine 6.5 (5.0-8.0); Protein,Urine Trace (Negative); Urobilinogen,Urine <2.0 mg/dL (<2.0)
[2022-02-09] MEDS: oxyCODONE-APAP 7.5-325MG 1 EACH TAB PO PRN (17:54)
[2022-02-09] MEDS: ATORVASTATIN 20 MG TAB PO SCH (22:16)
[2022-02-09] MEDS: LEVOTHYROXINE 100 MCG TAB PO SCH (22:17)
[2022-02-09] MEDS: traZODone HCL 100 MG TAB PO SCH (22:17)
[2022-02-09] MEDS: risperiDONE 2 MG TAB PO SCH (22:17)
--- NOTE | 2022-02-10 00:12 | P.PN ---
Subjective This is a pleasant 71 years old female with past medical history of COPD, Fibromyalgia, Osteoarthritis reumatoid Arthritis, Pt tested covid + 03/07/21 [facility] ER. ,Renal carcinoma with surgery, status post L partial nephrectomy, hepatitis C successfully tx with harvoni, bronchitis, hypothyroid, migraines, L wrist fracture with surgery then osteomylitis/nonunion L forearm/L wrist-no use of L hand and ulcer on L wrist, 3 lumbar spine surgery in 2 cervical spine surgery Patient presents initially because her left leg gave out when she was walking into her daughter scar, she mostly fell about her daughter helped to touch her and brought her to the floor without hitting her head or any part of her bradycardia and she states. She denies dizziness or syncope as well. She states that her left leg has been getting weak over the last 2-3 days, but it is not progressive. She has also some numbness around the left knee and ankle which is also new for her. For the last few weeks she's been complaining of from pain in both legs, both cultures and thighs. No thrills She denies headache currently but she's been complaining from some headache likely especially in her neck where she has history of neck surgeries and lower back surgeries before and she thinks her headache as well as to her neck. However it is mild now. No blurred vision or slurred speech. She has history of back surgery many years ago, last one was 2010. She has chronic low back pain with no recent worsening. She's following up with pain clinic. She quit smoking last April, denies alcohol or illicit drugs. Chest some diarrhea for 2 weeks about 4-6 times per day which is watery and loose but no blood. No abdominal pain with vomiting She denies dysuria or urgency or change in frequency. Patient also on home oxygen more than a year since she's been diagnosed with Covid, and it is little harder for her to breathe lately with some cough and yellow white phlegm for the last 5 days with no chest pain Patient is saturating 99% on 4 L oxygen via nasal cannula. Rest of vitals are stable. Patient is tachypneic at 22 CBC showed only mild anemia with hemoglobin of 11.1. Leukocytosis normal. INR is normal 1.0. Sodium 136, potassium 5.2, creatinine 1.4 Liver enzymes not elevated. Troponin is negative less than 0.012. TSH is low 0.4 but normal T4 1 0.6. Urinalysis is suspicious of infection Coronavirus nondetected. EKG showing normal sinus rhythm at [address]-T changes and QTC 431 Chest x-ray: Chronic prominence of pulmonary interstitium is unchanged. No definitive focal infiltrates. Mild prominence of the left hilum presents. Consider underlying pulmonary hypertension Venous ultrasound is negative for DVT 02/11/2022 Patient is doing well clinically and improving close to baseline. Hemodynamics stable. Hemoglobin stable at 9.2, WBC improved significantly, platelets stable at 103. Oxygen is at baseline of 4 L/m. IV fluids were stopped. Infectious disease on the case Currently she is on ceftriaxone and oral vancomycin. We were going to repeat the urinalysis today Objective - Vital Signs Vital signs: Vital Signs Temp 99.0 F 02/09/22 08:00 Pulse 82 02/09/22 08:44 Resp 14 02/09/22 08:00 BP 170/82 02/09/22 08:00 Pulse Ox 97 02/09/22 08:00 Intake & Output 02/08/22 02/09/22 02/09/22 17:59 06:59 18:59 Intake Total Balance Intake: Intake, IV Titration Amount Sodium Chloride 0.9% 1, 000 ml @ 50 mls/hr IV . Q20H [facility] Rx#:[id number] Oral Other: Voiding Method # Voids - Exam GENERAL: The patient is alert and oriented x3, not in any acute distress. Well developed, well nourished. HEENT: Pupils are round and equally reacting to light. EOMI. No scleral icterus. No conjunctival pallor. Normocephalic, atraumatic. No pharyngeal erythema. No thyromegaly. CARDIOVASCULAR: S1 and S2 present. No murmurs, rubs, or gallops. PULMONARY: Chest is clear to auscultation, no wheezing or crackles. ABDOMEN: Soft, nontender, nondistended, normoactive bowel sounds. No palpable organomegaly. MUSCULOSKELETAL: No joint swelling or deformity. EXTREMITIES: No cyanosis, clubbing, or pedal edema. NEUROLOGICAL: Gross neurological examination did not reveal any focal deficits. SKIN: No rashes. no petechiae. - Labs CBC & Chem 7: 02/09/22 07:15 02/09/22 07:15 Labs: Abnormal Lab Results - Last 24 Hours (Table) 02/08/22 02/08/22 Range/Units 06:38 06:38 RBC 3.32 L (4.10-5.20) X 10*6/uL Hgb 9.5 L (12.0-15.0) g/dL Hct 31.0 L (37.2-46.3) % MCHC 30.6 L (32.0-37.0) g/dL Plt Count 101 L (140-440) X 10*3/uL Plt Count Comment DECREASED A MPV 13.5 H (9.5-12.2) fL Lymphocytes # 0.36 L (0.90-5.00) X 10*3/uL Immature Plt Fraction 10.9 H (1.1-6.1) % Carbon Dioxide 18.3 L (20.0-27.5) mmol/L Est GFR (CKD-EPI)NonAf 57.2 L (60.0-200.0) BUN/Creatinine Ratio 22.94 H (12.00-20.00) Ratio Calcium 8.5 L (8.7-10.3) mg/dL Microbiology - Last 24 Hours (Table) 02/07/22 18:58 Blood Culture - Preliminary Blood No Growth after 24 hours 02/07/22 18:38 Blood Culture - Preliminary Blood No Growth after 24 hours Assessment and Plan Assessment: Possible left leg weakness and numbness with some decreased sensation over the last 2-3 days prior to admission. Also patient fell but her daughter hold her to the ground. Bilateral leg pain for several weeks Possible Acute urinary tract infection mild reactive gastroenteritis Acute kidney injury. Recent history of C. diff colitis, currently on oral vancomycin COPD, possible acute exacerbation chronic hypoxic respiratory failure History of fibromyalgia History of osteoarthritis History of rheumatoid arthritis Recent history of Covid infection in 2020 History of renal cell carcinoma status post left partial nephrectomy History of hepatitis C successfully treated Hypothyroidism History of migraine History of degenerative disc disease status post 3 lumbar spine surgery in 2 cervical spine surgeries. Plan: This is a pleasant 71 years old female who presents with acute urinary tract infection.Left leg weakness/numbness, worsening dyspnea and abnormal chest x-ray Continue with ceftriaxone, infectious disease consult on the case continue with oral vancomycin Repeat urinalysis Labs and medication were reviewed.. Continue same treatment. Continue with symptomatic treatment. Resume home medication. Monitor lytes and vitals. DVT and GI prophylaxis. Further recommendations depends on the clinical course of the patient DVT prophylaxis: Subcutaneous heparin GI Prophylaxis: Pepcid PT/OT: Pending Prognosis is guarded
[2022-02-10] MEDS: VANCOMYCIN ORAL SOLUTION 250 MG/5 ML BOTTLE PO SCH ×5 (00:55→23:45)
[2022-02-10] MEDS: CHERRY FLAVOR 60 ML BOTTLE PO SCH ×5 (00:55→23:46)
[2022-02-10] MEDS: oxyCODONE-APAP 7.5-325MG 1 EACH TAB PO PRN ×4 (01:01→23:45)
[2022-02-10] MEDS: SODIUM CHLORIDE 0.9% 1,000 ML IV SCH ×2 (06:15→20:29)
[2022-02-10] MEDS: HEPARIN SODIUM,PORCINE/PF 5,000 UNIT/0.5 ML SYRINGE SQ SCH ×2 (07:27→20:29)
[2022-02-10] MEDS: ASCORBIC ACID 500 MG TAB PO SCH (07:28)
[2022-02-10] MEDS: PANTOPRAZOLE 40 MG TABLET PO SCH (07:28)
[2022-02-10] MEDS: SERTRALINE 100 MG TAB PO SCH (07:28)
[2022-02-10] MEDS: RALOXIFENE 60 MG TAB PO SCH (07:28)
[2022-02-10] MEDS: METOPROLOL TARTRATE 50 MG TAB PO SCH ×2 (07:28→20:28)
[2022-02-10] MEDS: CHOLECALCIFEROL 25 MCG (1000 IU) TABLET PO SCH (07:28)
[2022-02-10] MEDS: MAGNESIUM OXIDE 400 MG TAB PO SCH ×2 (07:28→20:28)
[2022-02-10] MEDS: amLODIPine 10 MG TAB PO SCH (07:28)
[2022-02-10] MEDS: IPRATROPIUM-ALBUTEROL 3 ML NEB INHALATION PRN ×2 (08:58→11:57)
[2022-02-10] MEDS: BUDESONIDE 0.5 MG/2 ML NEBU INHALATION SCH ×2 (08:58→19:34)
--- NOTE | 2022-02-10 18:13 | XR ---
EXAMINATION TYPE: XR chest 1V portable DATE OF EXAM: 02/10/2022 COMPARISON: 02/07/2022 HISTORY: Cough TECHNIQUE: There is coarse interstitial density in the lungs. Heart size is normal. There is old righ t-sided healed rib fracture. There is multilevel thoracic and lumbar posterior fusion surgery. FINDINGS: IMPRESSION: Pulmonary interstitial fibrosis. No definite acute lung disease. No significant change co mpared to exam.
[2022-02-10] MEDS: LEVOTHYROXINE 100 MCG TAB PO SCH (20:28)
[2022-02-10] MEDS: ATORVASTATIN 20 MG TAB PO SCH (20:28)
[2022-02-10] MEDS: traZODone HCL 100 MG TAB PO SCH (20:28)
[2022-02-10] MEDS: risperiDONE 2 MG TAB PO SCH (20:29)
--- NOTE | 2022-02-10 23:17 | P.PN ---
Subjective Progress Note Date: 02/09/22 Principal diagnosis: C. diff colitis and a positive UA Patient is a 71-year-old female who was recently admitted at this facility and treated for C. diff colitis subsequently presented to the hospital complaining of weakness in the legs give out patient did have a fall but no loss of consciousness patient did have a positive UA but no urinary symptoms. On today's evaluation that is 02/09/2022, the patient denies having any fever or chills, the patient is feeling better breathing comfortably she denies having abdominal pain and diarrhea is slowing down and no urinary symptoms Objective - Vital Signs Vital signs: Vital Signs Temp 99.0 F 02/09/22 08:00 Pulse 82 02/09/22 08:44 Resp 14 02/09/22 08:00 BP 170/82 02/09/22 08:00 Pulse Ox 97 02/09/22 08:00 Intake & Output 02/08/22 02/09/22 02/09/22 17:59 06:59 18:59 Intake Total Balance Intake: Intake, IV Titration Amount Sodium Chloride 0.9% 1, 000 ml @ 50 mls/hr IV . Q20H [facility] Rx#:[id number] Oral Other: Voiding Method Toilet Bedside Commode # Voids - Exam GENERAL DESCRIPTION: An elderly female lying in bed in no distress RESPIRATORY SYSTEM: Unlabored breathing , decreased breath sounds at bases HEART: S1 S2 regular rate and rhythm , ABDOMEN: Soft , no tenderness EXTREMITIES: No edema feet - Labs CBC & Chem 7: 02/09/22 07:15 02/09/22 07:15 Labs: Abnormal Lab Results - Last 24 Hours (Table) 02/09/22 02/09/22 02/09/22 Range/Units 07:15 07:15 Unknown RBC 3.21 L (4.10-5.20) X 10*6/uL Hgb 9.2 L (12.0-15.0) g/dL Hct 29.4 L (37.2-46.3) % MCHC 31.3 L (32.0-37.0) g/dL Plt Count 103 L (140-440) X 10*3/uL Plt Count Comment DECREASED A MPV 12.5 H (9.5-12.2) fL Lymphocytes # 0.53 L (0.90-5.00) X 10*3/uL Immature Plt Fraction 9.1 H (1.1-6.1) % Chloride 110 H (96-109) mmol/L Urine Protein Trace H (Negative) Microbiology - Last 24 Hours (Table) 02/07/22 18:58 Blood Culture - Preliminary Blood No Growth after 24 hours 02/07/22 18:38 Blood Culture - Preliminary Blood No Growth after 24 hours Assessment and Plan (1) C. difficile colitis Current Visit: Yes Status: Acute Code(s): A04.72 - ENTEROCOLITIS D/T CLOSTRIDIUM DIFFICILE, NOT SPCF RECUR SNOMED Code(s): 094668727 Plan: 1patient presented to hospital with weakness and a fall more likely related to dehydration as patient did have elevated BUN and creatinine on presentation to the hospital. 2patient with recent C. difficile colitis and the patient diarrhea is imp roving, patient to continue vancomycin 3patient did have a positive UA but no urinary symptoms of burning or frequency clinically not behaving as a symptomatic urinary tract infection with recent C. difficile , no need for antibiotics to cover for the positive UA 4gentle IV fluid Time with Patient: Less than 30
--- NOTE | 2022-02-10 23:19 | P.PN ---
Subjective Progress Note Date: 02/10/22 Principal diagnosis: C. diff colitis and a positive UA Patient is a 71-year-old female who was recently admitted at this facility and treated for C. diff colitis subsequently presented to the hospital complaining of weakness in the legs give out patient did have a fall but no loss of consciousness patient did have a positive UA but no urinary symptoms. On today's evaluation that is 02/10/2022, the patient remains to be afebrile, the patient is breathing comfortably on room air she denies having abdominal pain and diarrhea has decreased in frequency and is forming up and no urinary symptoms Objective - Vital Signs Vital signs: Vital Signs Temp 97.5 F L 02/10/22 07:39 Pulse 77 02/10/22 09:12 Resp 18 02/10/22 09:12 BP 175/84 02/10/22 07:39 Pulse Ox 97 02/10/22 07:39 Intake & Output 02/09/22 02/10/22 02/10/22 18:59 06:59 18:59 Intake Total 590 600 Balance 590 600 Intake: Intake, IV Titration 50 Amount cefTRIAXone 2 gm In 50 Sodium Chloride 0.9% 50 ml @ 100 mls/hr IVPB Q24H [facility] Rx#:[id number] Oral 540 600 Other: Voiding Method Toilet Toilet Toilet Bedside Commode Bedside Commode Bedside Commode # Voids 3 4 - Exam GENERAL DESCRIPTION: An elderly female lying in bed in no distress RESPIRATORY SYSTEM: Unlabored breathing , decreased breath sounds at bases HEART: S1 S2 regular rate and rhythm , ABDOMEN: Soft , no tenderness EXTREMITIES: No edema feet - Labs CBC & Chem 7: 02/09/22 07:15 02/09/22 07:15 Labs: Abnormal Lab Results - Last 24 Hours (Table) 02/09/22 02/09/22 02/09/22 Range/Units 07:15 07:15 Unknown RBC 3.21 L (4.10-5.20) X 10*6/uL Hgb 9.2 L (12.0-15.0) g/dL Hct 29.4 L (37.2-46.3) % MCHC 31.3 L (32.0-37.0) g/dL Plt Count 103 L (140-440) X 10*3/uL Plt Count Comment DECREASED A MPV 12.5 H (9.5-12.2) fL Lymphocytes # 0.53 L (0.90-5.00) X 10*3/uL Immature Plt Fraction 9.1 H (1.1-6.1) % Chloride 110 H (96-109) mmol/L Urine Protein Trace H (Negative) Microbiology - Last 24 Hours (Table) 02/07/22 18:38 Blood Culture - Preliminary Blood No Growth after 48 hours 02/07/22 18:58 Blood Culture - Preliminary Blood No Growth after 48 hours Assessment and Plan (1) C. difficile colitis Current Visit: Yes Status: Acute Code(s): A04.72 - ENTEROCOLITIS D/T CLOSTRIDIUM DIFFICILE, NOT SPCF RECUR SNOMED Code(s): 530753607 Plan: 1patient presented to hospital with weakness and a fall more likely related to dehydration as patient did have elevated BUN and creatinine on presentation to the hospital. 2patient with recent C. difficile colitis and the patient diarrhea is improving, patient to continue vancomycin to finish a ten-day course of therapy, patient advised to increase her probiotic and yogurt Intake 3patient did have a positive UA but no urinary symptoms of burning or frequency clinically not behaving as a symptomatic urinary tract infection with recent C. difficile , no need for antibiotics to cover for the positive UA Time with Patient: Less than 30
[2022-02-11] MEDS: CHERRY FLAVOR 60 ML BOTTLE PO SCH ×2 (05:11→11:53)
[2022-02-11] MEDS: VANCOMYCIN ORAL SOLUTION 250 MG/5 ML BOTTLE PO SCH ×2 (05:11→11:52)
[2022-02-11] MEDS: METOPROLOL TARTRATE 50 MG TAB PO SCH (08:05)
[2022-02-11] MEDS: amLODIPine 10 MG TAB PO SCH (08:05)
[2022-02-11] MEDS: CHOLECALCIFEROL 25 MCG (1000 IU) TABLET PO SCH (08:05)
[2022-02-11] MEDS: MAGNESIUM OXIDE 400 MG TAB PO SCH (08:05)
[2022-02-11] MEDS: PANTOPRAZOLE 40 MG TABLET PO SCH (08:05)
[2022-02-11] MEDS: ASCORBIC ACID 500 MG TAB PO SCH (08:05)
[2022-02-11] MEDS: oxyCODONE-APAP 7.5-325MG 1 EACH TAB PO PRN (08:05)
[2022-02-11] MEDS: RALOXIFENE 60 MG TAB PO SCH (08:06)
[2022-02-11] MEDS: SERTRALINE 100 MG TAB PO SCH (08:06)
[2022-02-11] MEDS: HEPARIN SODIUM,PORCINE/PF 5,000 UNIT/0.5 ML SYRINGE SQ SCH (08:06)
[2022-02-11] MEDS: BUDESONIDE 0.5 MG/2 ML NEBU INHALATION SCH (09:45)
--- NOTE | 2022-02-11 10:42 | P.PN ---
Subjective Progress Note Date: 02/10/22 This is a pleasant 71 years old female with past medical history of COPD, Fibromyalgia, Osteoarthritis reumatoid Arthritis, Pt tested covid + 03/07/21 [facility] ER. ,Renal carcinoma with surgery, status post L partial nephrectomy, hepatitis C successfully tx with harvoni, bronchitis, hypothyroid, migraines, L wrist fracture with surgery then osteomylitis/nonunion L forearm/L wrist-no use of L hand and ulcer on L wrist, 3 lumbar spine surgery in 2 cervical spine surgery Patient presents initially because her left leg gave out when she was walking into her daughter scar, she mostly fell about her daughter helped to touch her and brought her to the floor without hitting her head or any part of her bradycardia and she states. She denies dizziness or syncope as well. She stat es that her left leg has been getting weak over the last 2-3 days, but it is not progressive. She has also some numbness around the left knee and ankle which is also new for her. For the last few weeks she's been complaining of from pain in both legs, both cultures and thighs. No thrills She denies headache currently but she's been complaining from some headache likely especially in her neck where she has history of neck surgeries and lower back surgeries before and she thinks her headache as well as to her neck. However it is mild now. No blurred vision or slurred speech. She has history of back surgery many years ago, last one was 2010. She has chronic low back pain with no recent worsening. She's following up with pain clinic. She quit smoking last April, denies alcohol or illicit drugs. Chest some diarrhea for 2 weeks about 4-6 times per day which is watery and loose but no blood. No abdominal pain with vomiting She denies dysuria or urgency or change in frequency. Patient also on home oxygen more than a year since she's been diagnosed with Covid, and it is little harder for her to breathe lately with some cough and yellow white phlegm for the last 5 days with no chest pain Patient is saturating 99% on 4 L oxygen via nasal cannula. Rest of vitals are stable. Patient is tachypneic at 22 CBC showed only mild anemia with hemoglobin of 11.1. Leukocytosis normal. INR is normal 1.0. Sodium 136, potassium 5.2, creatinine 1.4 Liver enzymes not elevated. Troponin is negative less than 0.012. TSH is low 0.4 but normal T4 1 0.6. Urinalysis is suspicious of infection Coronavirus nondetected. EKG showing normal sinus rhythm at [address]-T changes and QTC 431 Chest x-ray: Chronic prominence of pulmonary interstitium is unchanged. No definitive focal infiltrates. Mild prominence of the left hilum presents. Consider underlying pulmonary hypertension Venous ultrasound is negative for DVT 02/11/2022 Patient is doing well clinically and improving close to baseline. Hemodynamics stable. Hemoglobin stable at 9.2, WBC improved significantly, platelets stable at 103. Oxygen is at baseline of 4 L/m. IV fluids were stopped. Infectious disease on the case Currently she is on ceftriaxone and oral vancomycin. We were going to repeat the urinalysis today 02/10/2022 Patient is currently lying in the bed. Awake alert and oriented 3. Patient does have generalized weakness. Denied any any specific left-sided weakness.a specific left-sided weakness. Patient is being current Patient is being continued on vancomycin by mouth for vancomycin by mouth for C. difficile colitis. diarrhea is improving. Diarrhea is improving. ID is on board. ID is on board. Ceftriaxone has been discontinued.ceftriaxone has been discontinued.. chest x-ray showed pulmonary interstitial fibrosis. No definite acute lung bases. No significant change compared to exam. Current medications reviewed. Objective - Vital Signs Vital signs: Vital Signs Temp 98.7 F 02/10/22 14:13 Pulse 83 02/10/22 14:13 Resp 18 02/10/22 14:42 BP 159/74 02/10/22 14:13 Pulse Ox 98 02/10/22 14:13 Intake & Output 02/09/22 02/10/22 02/10/22 18:59 06:59 18:59 Intake Total 590 600 Balance 590 600 Intake: Intake, IV Titration 50 Amount cefTRIAXone 2 gm In 50 Sodium Chloride 0.9% 50 ml @ 100 mls/hr IVPB Q24H [facility] Rx#:[id number] Oral 540 600 Other: Voiding Method Toilet Toilet Toilet Bedside Commode Bedside Commode Bedside Commode # Voids 3 4 - Exam - Exam GENERAL: The patient is alert and oriented x3, not in any acute distress. Well developed, well nourished. HEENT: Pupils are round and equally reacting to light. EOMI. No scleral icterus. No conjunctival pallor. Normocephalic, atraumatic. No pharyngeal erythema. No thyromegaly. CARDIOVASCULAR: S1 and S2 present. No murmurs, rubs, or gallops. PULMONARY: Chest is clear to auscultation, no wheezing or crackles. ABDOMEN: Soft, nontender, nondistended, normoactive bowel sounds. No palpable or ganomegaly. MUSCULOSKELETAL: No joint swelling or deformity. EXTREMITIES: No cyanosis, clubbing, or pedal edema. NEUROLOGICAL: Gross neurological examination did not reveal any focal deficits. SKIN: No rashes. no petechiae. - Labs CBC & Chem 7: 02/09/22 07:15 02/09/22 07:15 Labs: Abnormal Lab Results - Last 24 Hours (Table) 02/09/22 Range/Units Unknown Urine Protein Trace H (Negative) Microbiology - Last 24 Hours (Table) 02/07/22 18:38 Blood Culture - Preliminary Blood No Growth after 48 hours 02/07/22 18:58 Blood Culture - Preliminary Blood No Growth after 48 hours Assessment and Plan Assessment: Generalized weakness. Patient denied any focal left leg weakness. Patient states that her legs gave away and fell. Also patient fell but her daughter hold her to the ground. Bilateral leg pain for several weeks Acute urinary tract infection mild reactive gastroenteritis Acute kidney injury. Improved. Recent history of C. diff colitis, currently on oral vancomycin COPD, not in acute exacerbation chronic hypoxic respiratory failure History of fibromyalgia History of osteoarthritis History of rheumatoid arthritis Recent history of Covid infection in 2020 History of renal cell carcinoma status post left partial nephrectomy History of hepatitis C successfully treated Hypothyroidism History of migraine History of degenerative disc disease status post 3 lumbar spine surgery in 2 cervical spine surgeries. Plan: This is a pleasant 71 years old female who presents with acute urinary tract infection.generalized weakness, Left leg weakness/numbness, worsening dyspnea and abnormal chest x-ray continue with oral vancomycin . ID is following. Patient was seen by neurology due to possible left-sided weakness. Patient mainly has generalized weakness due to infection. Repeat urinalysis is negative for infection. Labs and medication were reviewed. Monitor lytes and vitals. DVT and GI prophylaxis. DVT prophylaxis: Subcutaneous heparin GI Prophylaxis: Pepcid PT/OT: Pending Prognosis is guarded Time with Patient: Greater than 30
[2022-02-11 11:38] LABS: African American GFR (CKD) 104.8 (60.0-200.0); Anion Gap 14.1 mmol/L (10.00-18.00); BUN/Creat Ratio 15.83 Ratio (12.00-20.00); Blood Urea Nitrogen 9.5 mg/dL (9.0-27.0); Calcium 9.2 mg/dL (8.7-10.3); Carbon Dioxide 21.9 mmol/L (20.0-27.5); Non-African American GFR(CKD) 90.4 (60.0-200.0)
[2022-02-11 12:00] LABS: Basophils # (A) 0.03 X 10*3/uL (0.00-0.10); Basophils % (A) 0.7 %; Eosinophils # (A) 0.16 X 10*3/uL (0.04-0.35); Eosinophils % (A) 3.5 %; HCT 31.5 % (37.2-46.3); HGB 9.7 g/dL (12.0-15.0); Immature Grans, Automated 1.1 %; Immature Platelet Fraction 13.6 % (1.1-6.1); Lymphocytes # (A) 0.59 X 10*3/uL (0.90-5.00); MCHC 30.8 g/dL (32.0-37.0); MCV 90.8 fL (80.0-97.0); Mean Platelet Volume 12.8 fL (9.5-12.2); Monocytes # (A) 0.35 X 10*3/uL (0.20-1.00); Monocytes % (A) 7.7 %; NRBC Per 100 WBC 0 /100 WBCS (0.0-0.0); Neutrophils # (A) 3.35 X 10*3/uL (1.80-7.70); Platelet Count 112 X 10*3/uL (140-440); RBC 3.47 X 10*6/uL (4.10-5.20); RDW 13.7 % (11.5-14.5); WBC 4.53 X 10*3/uL (4.50-10.00)
[2022-02-11 15:00] VITALS: BP 155/84; PULSE 73; RESP 18; TEMP 97.6
[2022-02-13] MEDS ORDERED: ERGOCALCIFEROL 1,250 MCG (50,000 IU) CAPSULE PO SCH (09:00)
== END 2022-02-11 15:48 | disposition home health service (06) | DRG 690 ==
LOC: EC 14:40 → 4SSUR 18:09
PROVIDERS: ADMIT Hospitalist; ATTEND Hospitalist
DX: N39.0 Urinary tract infection, site not specified (principal); A04.72 Enterocolitis due to Clostridium difficile, not specified as recurrent; J96.11 Chronic respiratory failure with hypoxia; K51.90 Ulcerative colitis, unspecified, without complications; N17.9 Acute kidney failure, unspecified; Z20.822 Contact with and (suspected) exposure to COVID-19; Z86.16 Personal history of COVID-19; R53.1 Weakness; K52.9 Noninfective gastroenteritis and colitis, unspecified; E86.0 Dehydration; J44.9 Chronic obstructive pulmonary disease, unspecified; M51.36 Other intervertebral disc degeneration, lumbar region; M50.30 Other cervical disc degeneration, unspecified cervical region; M54.50 Low back pain, unspecified; R29.6 Repeated falls; J40 Bronchitis, not specified as acute or chronic; D64.9 Anemia, unspecified; E03.9 Hypothyroidism, unspecified; F32.A Depression, unspecified; G89.29 Other chronic pain; B18.2 Chronic viral hepatitis C; J84.10 Pulmonary fibrosis, unspecified; M06.9 Rheumatoid arthritis, unspecified; M19.90 Unspecified osteoarthritis, unspecified site; M79.7 Fibromyalgia; Z79.890 Hormone replacement therapy; Z79.899 Other long term (current) drug therapy; Z80.1 Family history of malignant neoplasm of trachea, bronchus and lung; Z85.528 Personal history of other malignant neoplasm of kidney; Z86.19 Personal history of other infectious and parasitic diseases; Z87.891 Personal history of nicotine dependence; Z90.5 Acquired absence of kidney; Z90.710 Acquired absence of both cervix and uterus; Z88.0 Allergy status to penicillin; Z88.6 Allergy status to analgesic agent; Z88.5 Allergy status to narcotic agent; Z87.01 Personal history of pneumonia (recurrent); Z82.61 Family history of arthritis
CPT/HCPCS: 36415; 71045; 71046; 80048; 80053; 81001; 81003; 83735; 83880; 84145; 84439; 84443; 84484; 85025; 85610; 85730; 87040; 87324; 87635; 93005; 93970; 94640; 94760; 96361; 96374; 99285

== ENCOUNTER 2022-03-07 16:43 | Emergency (ER) | payer MEDICARE, OTHER ==
[2022-03-07] MEDS ORDERED: SODIUM CHLORIDE 0.9% 1,000 ML IV ONE (16:45)
--- NOTE | 2022-03-07 16:48 | ED ---
General Adult HPI - General Stated complaint: Diarrhea Time Seen by Provider: 03/07/22 16:43 Source: patient, RN notes reviewed, old records reviewed - History of Present Illness Initial comments: This is a 71-year-old female presents emergency department today with the complaint that she is having 4 days of diarrhea. Patient states about a month ago she was diagnosed with C. diff. Patient states she came in today because sh e was concerned she was getting dehydrated and she was worried she had C. difficile again. Patient denies any abdominal pain. Patient states she's been able to eat normally. Patient denies any fever chills or cough per patient denies any dysuria hematuria urinary frequency. Patient denies any back pain. Patient denies any lightheadedness or dizziness. - Related Data Home Medications Medication Instructions Recorded Confirmed Raloxifene [Evista] 60 mg PO DAILY 02/07/15 03/07/22 Sertraline HCl [Zoloft] 200 mg PO DAILY 02/07/15 03/07/22 risperiDONE [RisperDAL] 2 mg PO HS 04/05/15 03/07/22 Ascorbic Acid [Vitamin C] 500 mg PO DAILY 01/14/20 03/07/22 busPIRone HCl [Buspar] 10 mg PO BID PRN 01/14/20 03/07/22 traZODone HCL 100 mg PO HS 01/14/20 03/07/22 Naproxen 500 mg PO BID PRN 03/07/21 03/07/22 Cholecalciferol [Vitamin D3 (25 25 mcg PO DAILY 12/16/21 03/07/22 Mcg = 1000 Iu)] Dicyclomine HCl 10 mg PO QID PRN 12/16/21 03/07/22 Ergocalciferol (Vitamin D2) 1,250 mcg PO TH 12/16/21 03/07/22 [Drisdol (50,000 Iu)] Levothyroxine Sodium [Synthroid] 100 mcg PO HS 12/16/21 03/07/22 [place]-3 Fatty Acids [[place]-3] 1,000 mg PO DAILY 12/16/21 03/07/22 Atorvastatin [Lipitor] 20 mg PO HS 01/14/22 03/07/22 Omeprazole 20 mg PO DAILY 01/14/22 03/07/22 Albuterol Sulfate [Ventolin HFA] 2 puff INHALATION RT-Q6H PRN 01/30/22 03/07/22 Acetaminophen Tab [Tylenol] 650 mg PO Q6H PRN 03/07/22 03/07/22 Previous Rx's Medication Instructions Recorded amLODIPine [Norvasc] 10 mg PO DAILY #90 tab 12/20/21 hydroCHLOROthiazide [Hydrodiuril] 25 mg PO DAILY #90 tab 12/20/21 lisinopriL [Zestril] 20 mg PO BID #180 tab 12/20/21 oxyCODONE-APAP 7.5-325MG [Percocet 1 tab PO Q6H PRN #12 tab 12/24/21 7.5-325 mg] Magnesium Oxide [Mag-Ox] 400 mg PO BID 5 Days #10 tab 02/03/22 Metoprolol Tartrate [Lopressor] 50 mg PO BID #60 tab 02/03/22 Allergies Allergy/AdvReac Type Severity Reaction Status Date / Time Penicillins Allergy Dyspnea Verified 03/07/22 17:49 aspirin AdvReac Nausea & Verified 03/07/22 17:49 Vomiting morphine AdvReac Hallucinati Verified 03/07/22 17:49 ons Review of Systems ROS Statement: Those systems with pertinent positive or pertinent negative responses have been documented in the HPI. ROS Other: All systems not noted in ROS Statement are negative. Past Medical History Past Medical History: Cancer, COPD, Fibromyalgia, Osteoarthritis (OA), Pneumonia, Rheumatoid Arthritis (RA) Additional Past Medical History / Comment(s): Pt tested covid + 03/07/21 [facility] ER. 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 L hand and ulcer on L wrist History of Any Multi-Drug Resistant Organisms: None Reported Date of last positivie culture/infection: 01/30/22 MDRO Source:: stool Past Surgical History: Back Surgery, Hysterectomy, Joint Replacement, Orthopedic Surgery Additional Past Surgical History / Comment(s): L partial nephrectomy, R wrist surgery for fracture, 3 L spine surgeries, 2 cervical surgeries, L hemiarthroplasty d/t fracture, colonoscopy Past Anesthesia/Blood Transfusion Reactions: No Reported Reaction Past Psychological History: Depression Additional Psychological History / Comment(s): Pt resides alone. She uses a walker to ambulate. She does not drive, her braeden drives her places. Smoking Status: Former smoker Past Alcohol Use History: None Reported Additional Past Alcohol Use History / Comment(s): Pt started smoking in 1962 and quit in 2019. She denied any alcohol use. Past Drug Use History: None Reported Additional Drug Use History / Comment(s): Pt denied any drug use - Past Family History Father Family Medical History: Cancer Additional Family Medical History / Comment(s): LUNG CA Mother Family Medical History: Osteoarthritis (OA) General Exam - General Exam Comments Initial Comments: GENERAL: Patient is well-developed and well-nourished. Patient is nontoxic and well- hydrated and is in no acute distress. ENT: Neck is soft and supple. No significant lymphadenopathy is noted. Oropharynx is clear. Moist mucous membranes. Neck has full range of motion without eliciting any pain. EYES: The sclera were anicteric and conjunctiva were pink and moist. Extraocular movements were intact and pupils were equal round and reactive to light. Eyelids were unremarkable. PULMONARY: Unlabored respirations. Good breath sounds bilaterally. No audible rales rhonchi or wheezing was noted. CARDIOVASCULAR: There is a regular rate and rhythm without any murmurs gallops or rubs. ABDOMEN: Soft and nontender with normal bowel sounds. SKIN: Skin is clear with no lesions or rashes and otherwise unremarkable. NEUROLOGIC: Patient is alert and oriented x3. Cranial nerves II through XII are grossly intact. Motor and sensory are also intact. Normal speech, volume and content. Symmetrical smile. MUSCULOSKELETAL: Normal extremities with adequate strength and full range of motion. LYMPHATICS: No significant lymphadenopathy is noted PSYCHIATRIC: Normal psychiatric evaluation. Course Vital Signs 03/07/22 03/07/22 16:45 18:48 Temperature 98.5 F Pulse Rate 65 69 Respiratory 20 18 Rate Blood Pressure 125/94 144/76 O2 Sat by Pulse 100 100 Oximetry Medical Decision Making - Medical Decision Making Patient had formed stool in the emergency department no diarrhea. Patient had no pain in the emergency department. - Lab Data Result diagrams: 03/07/22 17:06 03/07/22 17:06 Lab Results 03/07/22 03/07/22 Range/Units 17:06 17:06 WBC 6.8 (3.8-10.6) k/uL RBC 4.22 (3.80-5.40) m/uL Hgb 12.7 (11.4-16.0) gm/dL Hct 38.4 (34.0-46.0) % MCV 91.0 (80.0-100.0) fL MCH 30.0 (25.0-35.0) pg MCHC 32.9 (31.0-37.0) g/dL RDW 14.8 (11.5-15.5) % Plt Count [employer] MPV 11.3 Neutrophils % 80 % Lymphocytes % 12 % Monocytes % 4 % Eosinophils % 2 % Basophils % 1 % Neutrophils # 5.4 (1.3-7.7) k/uL Lymphocytes # 0.8 L (1.0-4.8) k/uL Monocytes # 0.3 (0-1.0) k/uL Eosinophils # 0.1 (0-0.7) k/uL Basophils # 0.0 (0-0.2) k/uL Sodium 135 L (137-145) mmol/L Potassium 4.6 (3.5-5.1) mmol/L Chloride 105 (98-107) mmol/L Carbon Dioxide 19 L (22-30) mmol/L Anion Gap 11 mmol/L BUN 21 H (7-17) mg/dL Creatinine 1.23 H (0.52-1.04) mg/dL Est GFR (CKD-EPI)AfAm 51 (>60 ml/min/1.73 sqM) Est GFR (CKD-EPI)NonAf 44 (>60 ml/min/1.73 sqM) Glucose 101 H (74-99) mg/dL Calcium 8.9 (8.4-10.2) mg/dL Total Bilirubin 0.5 (0.2-1.3) mg/dL AST 28 (14-36) U/L ALT 12 (4-34) U/L Alkaline Phosphatase 68 (38-126) U/L Total Protein 7.4 (6.3-8.2) g/dL Albumin 4.3 (3.5-5.0) g/dL Disposition Clinical Impression: Acute diarrhea Disposition: HOME SELF-CARE Instructions (If sedation given, give patient instructions): Acute Diarrhea (ED) Is patient prescribed a controlled substance at d/c from ED?: No Referrals: Michael Valdovinos DO [Primary Care Provider] - 1-2 days Time of Disposition: 21:11
[2022-03-07 16:51] VITALS: TEMP 98.5
[2022-03-07 17:40] LABS: Albumin 4.3 g/dL (3.5-5.0); Calcium 8.9 mg/dL (8.4-10.2); Potassium 4.6 mmol/L (3.5-5.1); Total Bilirubin 0.5 mg/dL (0.2-1.3); Total Protein 7.4 g/dL (6.3-8.2)
[2022-03-07 17:52] LABS: Basophils % (A) 1 %; Eosinophils # (A) 0.1 k/uL (0-0.7); Eosinophils % (A) 2 %; HCT 38.4 % (34.0-46.0); HGB 12.7 gm/dL (11.4-16.0); Lymphocytes # (A) 0.8 k/uL (1.0-4.8); Lymphocytes % (A) 12 %; MCHC 32.9 g/dL (31.0-37.0); Mean Platelet Volume 11.3; Monocytes # (A) 0.3 k/uL (0-1.0); Monocytes % (A) 4 %; Neutrophils # (A) 5.4 k/uL (1.3-7.7); Neutrophils % (A) 80 %; RBC 4.22 m/uL (3.80-5.40); RDW 14.8 % (11.5-15.5); WBC 6.8 k/uL (3.8-10.6)
[2022-03-07 18:50] VITALS: RESP 18
[2022-03-07] MEDS ORDERED: KETOROLAC 15 MG/ML 1 ML VIAL IVP STA (18:57)
[2022-03-07] MEDS ORDERED: DIPHENOX-ATROP STARTER PACK 8 TAB BTL PO STA (21:12)
[2022-03-07 22:12] VITALS: BP 147/89; PULSE 71
== END 2022-03-07 22:25 | disposition home or self-care (01) ==
LOC: EC 16:43
DX: R19.7 Diarrhea, unspecified (principal); Z87.891 Personal history of nicotine dependence; Z88.0 Allergy status to penicillin; Z88.6 Allergy status to analgesic agent
CPT/HCPCS: 36415; 80053; 85025; 96360; 99284

== ENCOUNTER 2022-11-12 14:12 | Inpatient (IN) | payer MEDICARE, OTHER ==
[2022-11-12] MEDS ORDERED: methylPREDNISolone SOD SUCCI 125 MG/2 ML VIAL IV STA (14:30)
[2022-11-12] MEDS ORDERED: ALBUTEROL NEBULIZED 2.5 MG/3 ML INHALATION STA (14:30)
[2022-11-12] MEDS ORDERED: IPRATROPIUM 0.5 MG/2.5 ML NEBU INHALATION STA (14:30)
--- NOTE | 2022-11-12 14:42 | ED ---
General Adult HPI - General Chief complaint: Shortness of Breath Stated complaint: NATANAEL Time Seen by Provider: 11/12/22 14:12 Source: patient, EMS, RN notes reviewed, old records reviewed Mode of arrival: EMS Limitations: no limitations - History of Present Illness Initial comments: This is a 72-year-old female who presents emergency Department with a past medical history significant for COPD. Patient states 2 days ago she started feeling more more short of breath and last night she became much more tired and more short of breath. Today she states she was getting so exhausted and short of breath she decided to call EMS. Patient states the she is normally on 5 L of oxygen. EMS states when they arrived she was oxygenating on 5 L in the 80s and very tired. Once they put on 5 L her oxygenation was up into the 90s but she kept falling asleep. Patient denies any new pain. Patient denies headache patient denies numbness weakness per patient denies lightheadedness or dizziness. Patient denies any chest pain or palpitations. Patient denies any recent fever chills or cough per patient denies abdominal pain patient denies nausea vomiting diarrhea per patient denies any leg swelling or calf tenderness. - Related Data Home Medications Medication Instructions Recorded Confirmed Raloxifene [Evista] 60 mg PO DAILY 02/07/15 11/12/22 Sertraline HCl [Zoloft] 100 mg PO BID 02/07/15 11/12/22 risperiDONE [RisperDAL] 2 mg PO HS 04/05/15 11/12/22 busPIRone HCl [Buspar] 10 mg PO BID PRN 01/14/20 11/12/22 traZODone HCL 100 mg PO HS 01/14/20 11/12/22 Naproxen 500 mg PO BID PRN 03/07/21 11/12/22 Dicyclomine HCl 10 - 20 mg PO QID PRN 12/16/21 11/12/22 Ergocalciferol (Vitamin D2) 1,250 mcg PO Q7D 12/16/21 11/12/22 [Drisdol (50,000 Iu)] Albuterol Sulfate [Ventolin HFA] 2 puff INHALATION RT-Q6H PRN 01/30/22 11/12/22 Acetaminophen Tab [Tylenol] 650 mg PO Q6H PRN 03/07/22 11/12/22 Aspirin EC [Ecotrin Low Dose] 81 mg PO DAILY 11/12/22 11/12/22 Atorvastatin [Lipitor] 10 mg PO DAILY 11/12/22 11/12/22 Budesonide/Formoterol Fumarate 1 puff INHALATION RT-BID 11/12/22 11/12/22 [Symbicort 160-4.5 Mcg Inhaler] Gabapentin 800 mg PO TID 11/12/22 11/12/22 Levothyroxine Sodium 125 mcg PO DAILY 11/12/22 11/12/22 Meclizine [Antivert] 12.5 mg PO BID PRN 11/12/22 11/12/22 Pantoprazole [Protonix] 40 mg PO DAILY 11/12/22 11/12/22 Previous Rx's Medication Instructions Recorded amLODIPine [Norvasc] 10 mg PO DAILY #90 tab 12/20/21 oxyCODONE-APAP 7.5-325MG [Percocet 1 tab PO Q6H PRN #12 tab 12/24/21 7.5-325 mg] Allergies Allergy/AdvReac Type Severity Reaction Status Date / Time Penicillins Allergy Dyspnea Verified 11/12/22 16:16 aspirin AdvReac Nausea & Verified 11/12/22 16:16 Vomiting morphine AdvReac Hallucinati Verified 11/12/22 16:16 ons Review of Systems ROS Statement: Those systems with pertinent positive or pertinent negative responses have been documented in the HPI. ROS Other: All systems not noted in ROS Statement are negative. Past Medical History Past Medical History: Cancer, COPD, Fibromyalgia, Osteoarthritis (OA), Pneumonia, Rheumatoid Arthritis (RA) Additional Past Medical History / Comment(s): Pt tested covid + 03/07/21 [facility] ER. 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 L hand and ulcer on L wrist History of Any Multi-Drug Resistant Organisms: None Reported Date of last positivie culture/infection: 01/30/22 MDRO Source:: stool Past Surgical History: Back Surgery, Hysterectomy, Joint Replacement, Orthopedic Surgery Additional Past Surgical History / Comment(s): L partial nephrectomy, R wrist surgery for fracture, 3 L spine surgeries, 2 cervical surgeries, L hemiarthroplasty d/t fracture, colonoscopy Past Anesthesia/Blood Transfusion Reactions: No Reported Reaction Past Psychological History: Depression Smoking Status: Former smoker Past Alcohol Use History: None Reported, Occasional Past Drug Use History: None Reported - Past Family History Father Family Medical History: Cancer Additional Family Medical History / Comment(s): LUNG CA Mother Family Medical History: Osteoarthritis (OA) General Exam - General Exam Comments Initial Comments: GENERAL: Patient is well-developed and well-nourished. Patient is nontoxic and well- hydrated and is in moderate distress. ENT: Neck is soft and supple. No significant lymphadenopathy is noted. Oropharynx is clear. Moist mucous membranes. Neck has full range of motion without eliciting any pain. EYES: The sclera were anicteric and conjunctiva were pink and moist. Extraocular movements were intact and pupils were equal round and reactive to light. Eyelids were unremarkable. PULMONARY: Patient has crackles in the bases and some slight respiratory wheezing. Patient was on 5 L in the emergency department and was satting about 96% CARDIOVASCULAR: There is a regular rate and rhythm without any murmurs gallops or rubs. ABDOMEN: Soft and nontender with normal bowel sounds. SKIN: Skin is clear with no lesions or rashes and otherwise unremarkable. NEUROLOGIC: Patient is alert and oriented x3. Cranial nerves II through XII are grossly intact. Motor and sensory are also intact. Normal speech, volume and content. Symmetrical smile. MUSCULOSKELETAL: Normal extremities with adequate strength and full range of motion. LYMPHATICS: No significant lymphadenopathy is noted PSYCHIATRIC: Normal psychiatric evaluation. Limitations: no limitations Course Vital Signs 11/12/22 11/12/22 11/12/22 14:33 16:04 16:19 Temperature 98.9 F Pulse Rate 112 H 102 H 104 H Respiratory 24 Rate Blood Pressure 126/70 O2 Sat by Pulse 98 Oximetry 11/12/22 11/12/22 11/12/22 16:27 16:30 18:00 Temperature Pulse Rate 105 H 105 H 106 H Respiratory 20 21 22 Rate Blood Pressure 155/70 155/70 163/71 O2 Sat by Pulse 98 98 98 Oximetry Medical Decision Making - Medical Decision Making EKG was interpreted by me. EKG shows sinus tachycardia at 102 bpm [place] interval is on a 56 QRS is 93 QT interval 333 QTC is 391 per patient's EKG shows no ST segment elevation or depression. Chest x-ray was interpreted me. X-ray shows mild pulmonary edema. Patient received Lasix for the mild pulmonary edema. Patient had acute renal failure. I spoke with [facility] significant mid patient admitted the patient remaining orders. - Lab Data Result diagrams: 11/12/22 14:50 11/12/22 14:50 Lab Results 11/12/22 11/12/22 11/12/22 Range/Units 14:50 14:50 14:50 WBC 7.4 (3.8-10.6) k/uL RBC 3.40 L (3.80-5.40) m/uL Hgb 10.7 L (11.4-16.0) gm/dL Hct 31.7 L (34.0-46.0) % MCV 93.3 (80.0-100.0) fL MCH 31.5 (25.0-35.0) pg MCHC 33.7 (31.0-37.0) g/dL RDW 14.6 (11.5-15.5) % Plt Count 108 L (150-450) k/uL MPV 11.7 Neutrophils % 85 % Lymphocytes % 8 % Monocytes % 4 % Eosinophils % 1 % Basophils % 1 % Neutrophils # 6.3 (1.3-7.7) k/uL Lymphocytes # 0.6 L (1.0-4.8) k/uL Monocytes # 0.3 (0-1.0) k/uL Eosinophils # 0.1 (0-0.7) k/uL Basophils # 0.0 (0-0.2) k/uL PT 11.4 (9.0-12.0) sec INR 1.1 (<1.2) APTT 27.8 (22.0-30.0) sec Sample Site ABG pH (7.35-7.45) ABG pCO2 (35-45) mmHg ABG pO2 (83-108) mmHg ABG HCO3 (21-25) mmol/L ABG Total CO2 (19-24) mmol/L ABG O2 Saturation (94-97) % ABG Base Excess mmol/L Peter Test FiO2 % Sodium 137 (137-145) mmol/L Potassium 5.0 (3.5-5.1) mmol/L Chloride 109 H (98-107) mmol/L Carbon Dioxide 14 L (22-30) mmol/L Anion Gap 14 mmol/L BUN 47 H (7-17) mg/dL Creatinine 3.19 H (0.52-1.04) mg/dL Est GFR (CKD-EPI)AfAm 16 (>60 ml/min/1.73 sqM) Est GFR (CKD-EPI)NonAf 14 (>60 ml/min/1.73 sqM) Glucose 102 H (74-99) mg/dL Plasma Lactic Acid Brennan (0.7-2.0) mmol/L Calcium 8.6 (8.4-10.2) mg/dL Magnesium 1.6 (1.6-2.3) mg/dL Total Bilirubin 1.1 (0.2-1.3) mg/dL AST 54 H (14-36) U/L ALT 21 (4-34) U/L Alkaline Phosphatase 75 (38-126) U/L Troponin I (0.000-0.034) ng/mL NT-Pro-B Natriuret Pep pg/mL Total Protein 6.8 (6.3-8.2) g/dL Albumin 4.0 (3.5-5.0) g/dL Influenza Type A (PCR) (Not Detectd) Influenza Type B (PCR) (Not Detectd) RSV (PCR) (Not Detectd) SARS-CoV-2 (PCR) (Not Detectd) 11/12/22 11/12/22 11/12/22 Range/Units 14:50 14:50 14:50 WBC (3.8-10.6) k/uL RBC (3.80-5.40) m/uL Hgb (11.4-16.0) gm/dL Hct (34.0-46.0) % MCV (80.0-100.0) fL MCH (25.0-35.0) pg MCHC (31.0-37.0) g/dL RDW (11.5-15.5) % Plt Count (150-450) k/uL MPV Neutrophils % % Lymphocytes % % Monocytes % % Eosinophils % % Basophils % % Neutrophils # (1.3-7.7) k/uL Lymphocytes # (1.0-4.8) k/uL Monocytes # (0-1.0) k/uL Eosinophils # (0-0.7) k/uL Basophils # (0-0.2) k/uL PT (9.0-12.0) sec INR (<1.2) APTT (22.0-30.0) sec Sample Site ABG pH (7.35-7.45) ABG pCO2 (35-45) mmHg ABG pO2 (83-108) mmHg ABG HCO3 (21-25) mmol/L ABG Total CO2 (19-24) mmol/L ABG O2 Saturation (94-97) % ABG Base Excess mmol/L Peter Test FiO2 % Sodium (137-145) mmol/L Potassium (3.5-5.1) mmol/L Chloride (98-107) mmol/L Carbon Dioxide (22-30) mmol/L Anion Gap mmol/L BUN (7-17) mg/dL Creatinine (0.52-1.04) mg/dL Est GFR (CKD-EPI)AfAm (>60 ml/min/1.73 sqM) Est GFR (CKD-EPI)NonAf (>60 ml/min/1.73 sqM) Glucose (74-99) mg/dL Plasma Lactic Acid Brennan 1.2 (0.7-2.0) mmol/L Calcium (8.4-10.2) mg/dL Magnesium (1.6-2.3) mg/dL Total Bilirubin (0.2-1.3) mg/dL AST (14-36) U/L ALT (4-34) U/L Alkaline Phosphatase (38-126) U/L Troponin I <0.012 (0.000-0.034) ng/mL NT-Pro-B Natriuret Pep 1040 pg/mL Total Protein (6.3-8.2) g/dL Albumin (3.5-5.0) g/dL Influenza Type A (PCR) (Not Detectd) Influenza Type B (PCR) (Not Detectd) RSV (PCR) (Not Detectd) SARS-CoV-2 (PCR) (Not Detectd) 11/12/22 11/12/22 Range/Units 15:10 16:33 WBC (3.8-10.6) k/uL RBC (3.80-5.40) m/uL Hgb (11.4-16.0) gm/dL Hct (34.0-46.0) % MCV (80.0-100.0) fL MCH (25.0-35.0) pg MCHC (31.0-37.0) g/dL RDW (11.5-15.5) % Plt Count (150-450) k/uL MPV Neutrophils % % Lymphocytes % % Monocytes % % Eosinophils % % Basophils % % Neutrophils # (1.3-7.7) k/uL Lymphocytes # (1.0-4.8) k/uL Monocytes # (0-1.0) k/uL Eosinophils # (0-0.7) k/uL Basophils # (0-0.2) k/uL PT (9.0-12.0) sec INR (<1.2) APTT (22.0-30.0) sec Sample Site lrad ABG pH 7.26 L (7.35-7.45) ABG pCO2 39 (35-45) mmHg ABG pO2 104 (83-108) mmHg ABG HCO3 18 L (21-25) mmol/L ABG Total CO2 19 (19-24) mmol/L ABG O2 Saturation 96.7 (94-97) % ABG Base Excess -9.5 mmol/L Peter Test Yes FiO2 40 % Sodium (137-145) mmol/L Potassium (3.5-5.1) mmol/L Chloride (98-107) mmol/L Carbon Dioxide (22-30) mmol/L Anion Gap mmol/L BUN (7-17) mg/dL Creatinine (0.52-1.04) mg/dL Est GFR (CKD-EPI)AfAm (>60 ml/min/1.73 sqM) Est GFR (CKD-EPI)NonAf (>60 ml/min/1.73 sqM) Glucose (74-99) mg/dL Plasma Lactic Acid Brennan (0.7-2.0) mmol/L Calcium (8.4-10.2) mg/dL Magnesium (1.6-2.3) mg/dL Total Bilirubin (0.2-1.3) mg/dL AST (14-36) U/L ALT (4-34) U/L Alkaline Phosphatase (38-126) U/L Troponin I (0.000-0.034) ng/mL NT-Pro-B Natriuret Pep pg/mL Total Protein (6.3-8.2) g/dL Albumin (3.5-5.0) g/dL Influenza Type A (PCR) Not Detected (Not Detectd) Influenza Type B (PCR) Not Detected (Not Detectd) RSV (PCR) Not Detected (Not Detectd) SARS-CoV-2 (PCR) Not Detected (Not Detectd) Disposition Clinical Impression: Pulmonary edema, Acute renal failure Disposition: ADMITTED IP TO THIS HOSP Referrals: Michael Valdovinos DO [Primary Care Provider] - 1-2 days Time of Disposition: 19:04
[2022-11-12 15:14] LABS: ABG Base Excess -9.5 mmol/L; ABG HCO3 18 mmol/L (21-25); ABG Oxygen Saturation 96.7 % (94-97); ABG PCO2 39 mmHg (35-45); ABG PH 7.26 (7.35-7.45); ABG PO2 104 mmHg (83-108); ABG TCO2 19 mmol/L (19-24); Allen Test Performed? Yes
[2022-11-12 15:18] LABS: Calcium 8.6 mg/dL (8.4-10.2); Magnesium 1.6 mg/dL (1.6-2.3); Total Bilirubin 1.1 mg/dL (0.2-1.3); Total Protein 6.8 g/dL (6.3-8.2)
[2022-11-12 15:23] LABS: INR 1.1 (<1.2); Partial Thromboplastin Time 27.8 sec (22.0-30.0); Prothrombin Time 11.4 sec (9.0-12.0)
[2022-11-12 15:27] LABS: Basophils % (A) 1 %; Eosinophils # (A) 0.1 k/uL (0-0.7); Eosinophils % (A) 1 %; HCT 31.7 % (34.0-46.0); HGB 10.7 gm/dL (11.4-16.0); Lymphocytes # (A) 0.6 k/uL (1.0-4.8); Lymphocytes % (A) 8 %; MCH 31.5 pg (25.0-35.0); MCHC 33.7 g/dL (31.0-37.0); MCV 93.3 fL (80.0-100.0); Mean Platelet Volume 11.7; Monocytes # (A) 0.3 k/uL (0-1.0); Monocytes % (A) 4 %; Neutrophils # (A) 6.3 k/uL (1.3-7.7); Neutrophils % (A) 85 %; Platelet Count 108 k/uL (150-450); RDW 14.6 % (11.5-15.5); WBC 7.4 k/uL (3.8-10.6)
--- NOTE | 2022-11-12 15:40 | XR ---
EXAMINATION TYPE: XR chest 2V DATE OF EXAM: 11/12/2022 COMPARISON: Chest x-ray February 10, 2022 HISTORY: Difficulty in breathing. TECHNIQUE: Frontal and lateral views of the chest are obtained. FINDINGS: The osseous structures remain demineralized. Surgical change in the lumbar spine is partia lly imaged. Cardiac silhouette size remains within normal limits. Low lung volumes and increased inte rstitial markings bilaterally are present. Healed fracture of the posterior lateral right eighth rib is noted. Surgical change suspected in the cervical spine. IMPRESSION: Low lung volumes with diffuse left greater than right interstitial edema and/or infiltra alejo identified.
[2022-11-12] MEDS ORDERED: busPIRone HCl 10 MG TAB PO PRN (19:07)
[2022-11-12] MEDS ORDERED: oxyCODONE-APAP 7.5-325MG 1 EACH TAB PO PRN (19:07)
[2022-11-12] MEDS: FUROSEMIDE 10 MG/ML 4 ML VIAL IV SCH (20:19)
[2022-11-12] MEDS: SERTRALINE 100 MG TAB PO SCH (20:19)
[2022-11-12] MEDS: risperiDONE 2 MG TAB PO SCH (20:20)
[2022-11-12] MEDS: traZODone HCL 100 MG TAB PO SCH (20:20)
[2022-11-12] MEDS: ALBUTEROL NEBULIZED 2.5 MG/3 ML INHALATION PRN (20:52)
[2022-11-12] MEDS: SYMBICORT 160-4.5 MCG INHALER INHALATION SCH (20:52)
[2022-11-12] MEDS ORDERED: GABAPENTIN 400 MG CAP PO SCH (22:00)
[2022-11-13 07:15] LABS: HCT 32.5 % (34.0-46.0); HGB 10.4 gm/dL (11.4-16.0); Hypochromasia Slight; MCH 30.6 pg (25.0-35.0); MCHC 32.1 g/dL (31.0-37.0); MCV 95.3 fL (80.0-100.0); Mean Platelet Volume 11.3; Platelet Count 113 k/uL (150-450); RBC 3.41 m/uL (3.80-5.40); RDW 14.7 % (11.5-15.5); WBC 5.9 k/uL (3.8-10.6)
[2022-11-13 07:28] LABS: Magnesium 1.7 mg/dL (1.6-2.3); Potassium 4.3 mmol/L (3.5-5.1)
[2022-11-13 07:48] LABS: Appearance,Urine Clear (Clear); Bacteria,Urine Occasional /hpf; Bilirubin,Urine Negative (Negative); Blood,Urine Small (Negative); Color,Urine Light Yellow; Glucose,Urine (UA) Negative (Negative); Hyaline Casts,Urine 4 /lpf (0-2); Ketones,Urine Negative (Negative); Leukocyte Esterase,Urine Small (Negative); Nitrite,Urine Negative (Negative); PH, Urine 5.5 (5.0-8.0); Protein,Urine Trace (Negative); RBC,Urine <1 /hpf (0-5); Squamous Epithelial Cell,Urine <1 /hpf (0-4); Urobilinogen,Urine <2.0 mg/dL (<2.0); WBC,Urine <1 /hpf (0-5)
[2022-11-13] MEDS: ALBUTEROL NEBULIZED 2.5 MG/3 ML INHALATION PRN ×2 (08:01→11:45)
[2022-11-13] MEDS: SYMBICORT 160-4.5 MCG INHALER INHALATION SCH ×2 (08:01→19:54)
[2022-11-13] MEDS ORDERED: PANTOPRAZOLE 40 MG TABLET PO SCH (09:00)
[2022-11-13] MEDS: SERTRALINE 100 MG TAB PO SCH ×2 (09:11→21:34)
[2022-11-13] MEDS: amLODIPine 10 MG TAB PO SCH (09:11)
[2022-11-13] MEDS: FUROSEMIDE 10 MG/ML 4 ML VIAL IV SCH (09:11)
[2022-11-13] MEDS: GABAPENTIN 100 MG CAP PO SCH (09:11)
[2022-11-13] MEDS: LEVOTHYROXINE 125 MCG TAB PO SCH (09:12)
[2022-11-13] MEDS: ATORVASTATIN 10 MG TAB PO SCH (09:12)
[2022-11-13] MEDS ORDERED: Magnesium Replacement Protocol 1 EACH MISC MISCELLANE PRN (10:10)
--- NOTE | 2022-11-13 11:57 | P.NPCON ---
History of Present Illness - Reason for Consult acute renal failure - History of Present Illness Patient is a 72-year-old female with history of COPD and hypothyroidism. Patient is admitted to the hospital with complaints of shortness of breath and increased weakness particularly in the legs. Patient is maintained on home oxygen of about 5 L. Patient states that she is aware that her kidney function has been weak but does not follow up with a medical office supervisor. Serum creatinine was 3.1 mg/dL on admission and improved to 2.1 today. Blood pressure has not been low. Currently being diuresed. Chest x-ray shows diffuse bilateral interstitial edema/infiltrates No history of fever or cough Ejection fraction 55-60% on echocardiogram in November 2021. Patient has been voiding Patient admits to regular use of nonsteroidal anti-inflammatory agents prior to admission. Review of Systems As per HPI Past Medical History Past Medical History: Cancer, COPD, Fibromyalgia, Osteoarthritis (OA), Pneumonia, Rheumatoid Arthritis (RA) Additional Past Medical History / Comment(s): Pt tested covid + 03/07/[address] [facility] ER. 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 L hand and ulcer on L wrist History of Any Multi-Drug Resistant Organisms: None Reported Date of last positivie culture/infection: 01/30/22 MDRO Source:: stool Past Surgical History: Back Surgery, Hysterectomy, Joint Replacement, Orthopedic Surgery Additional Past Surgical History / Comment(s): L partial nephrectomy, R wrist surgery for fracture, 3 L spine surgeries, 2 cervical surgeries, L hemiarthroplasty d/t fracture, colonoscopy Past Anesthesia/Blood Transfusion Reactions: No Reported Reaction Past Psychological History: Depression Smoking Status: Former smoker Past Alcohol Use History: None Reported, Occasional Past Drug Use History: None Reported - Past Family History Father Family Medical History: Cancer Additional Family Medical History / Comment(s): LUNG CA Mother Family Medical History: Osteoarthritis (OA) Medications and Allergies Home Medications Medication Instructions Recorded Confirmed Type Raloxifene [Evista] 60 mg PO DAILY 02/07/15 11/12/22 History Sertraline HCl [Zoloft] 100 mg PO BID 02/07/15 11/12/22 History risperiDONE [RisperDAL] 2 mg PO HS 04/05/15 11/12/22 History busPIRone HCl [Buspar] 10 mg PO BID PRN 01/14/20 11/12/22 History traZODone HCL 100 mg PO HS 01/14/20 11/12/22 History Naproxen 500 mg PO BID PRN 03/07/21 11/12/22 History Dicyclomine HCl 10 - 20 mg PO QID PRN 12/16/21 11/12/22 History Ergocalciferol (Vitamin D2) 1,250 mcg PO Q7D 12/16/21 11/12/22 History [Drisdol (50,000 Iu)] amLODIPine [Norvasc] 10 mg PO DAILY #90 tab 12/20/21 11/12/22 Rx oxyCODONE-APAP 7.5-325MG [Percocet 1 tab PO Q6H PRN #12 tab 12/24/21 11/12/22 Rx 7.5-325 mg] Albuterol Sulfate [Ventolin HFA] 2 puff INHALATION RT-Q6H PRN 01/30/22 11/12/22 History Acetaminophen Tab [Tylenol] 650 mg PO Q6H PRN 03/07/22 11/12/22 History Aspirin EC [Ecotrin Low Dose] 81 mg PO DAILY 11/12/22 11/12/22 History Atorvastatin [Lipitor] 10 mg PO DAILY 11/12/22 11/12/22 History Budesonide/Formoterol Fumarate 1 puff INHALATION RT-BID 11/12/22 11/12/22 History [Symbicort 160-4.5 Mcg Inhaler] Gabapentin 800 mg PO TID 11/12/22 11/12/22 History Levothyroxine Sodium 125 mcg PO DAILY 11/12/22 11/12/22 History Meclizine [Antivert] 12.5 mg PO BID PRN 11/12/22 11/12/22 History Pantoprazole [Protonix] 40 mg PO DAILY 11/12/22 11/12/22 History Allergies Allergy/AdvReac Type Severity Reaction Status Date / Time Penicillins Allergy Dyspnea Verified 11/12/22 16:16 aspirin AdvReac Nausea & Verified 11/12/22 16:16 Vomiting morphine AdvReac Hallucinati Verified 11/12/22 16:16 ons Physical Exam Vitals: Vital Signs Temp Pulse Resp BP Pulse Ox 12/15/22 11:46 102 H 11/13/22 08:13 110 H 11/13/22 08:02 105 H 93 L 11/13/22 05:43 111 H 20 155/86 98 11/13/22 03:51 97.9 F 107 H 22 165/78 98 11/13/22 00:49 104 H 18 167/93 97 11/12/22 21:03 115 H 11/12/22 20:52 112 H 97 11/12/22 20:26 102 H 22 156/95 98 11/12/22 18:00 106 H 22 163/71 98 11/12/22 16:30 105 H 21 155/70 98 11/12/22 16:27 105 H 20 155/70 98 11/12/22 16:19 104 H 11/12/22 16:04 102 H 11/12/22 14:33 98.9 F 112 H 24 126/70 98 Intake and Output 11/12/22 11/13/22 11/13/22 22:59 06:59 14:59 Output Total 1650 Balance -1650 Output: Urine 1650 Patient is awake, comfortable, no acute distress Examination of the heart S1 and S2 Examination of the lungs bilateral breath sounds are heard Abdomen is soft nontender Examination of lower extremity shows no evidence of 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 Acute kidney injury secondary to NSAIDs and possibly cardiorenal. Currently improved. May continue with current dose of IV Lasix. UA shows trace protein and small blood 2. Volume overload 3. Acute on top of chronic hypoxic respiratory failure associated with volume overload and possible exacerbation of COPD 4. Chronic hypoxic respiratory failure from COPD 5. Metabolic acidosis non-gap associated with acute kidney injury, add oral sodium bicarb Plan: Add oral sodium bicarb as patient is being diuresed and I will try to avoid IV fluids Check ultrasound of the kidneys Patient is advised to avoid use of NSAIDs Continue with IV Lasix Repeat labs in a.m. Thank you for the consultation. We will continue to follow the patient with you during her hospitalization
[2022-11-13] MEDS: MAGNESIUM SULFATE-D5W PMX 1 GM in DEXTROSE/WATER 1 100ML.BAG IVPB SCH ×2 (12:04→13:26)
[2022-11-13] MEDS ORDERED: SODIUM CHLORIDE 0.9% 1,000 ML IV SCH (12:45)
--- NOTE | 2022-11-13 13:03 | P.CRDCN ---
History of Present Illness Consult date: 11/13/22 Requesting physician: Mahesh Matute Reason for Consult (text): heart failure Chief complaint: malaise, weakness History of present illness: This is a pleasant 72-year-old female patient with past medical history of COPD, on home oxygen since February 2021 after having COVID-19 infection, renal cell carcinoma. Also has a history of hypertension, hyperlipidemia and hypothyroidism. She denies history of coronary artery valvular heart disease. Presented to the emergency department with progressively worsening malaise, weakness and shortness of breath. We were asked to see the patient in consu ltation after chest x-ray showed low lung volumes with diffuse left greater than right interstitial edema and/or infiltrates identified. Laboratory values on admission showed evidence of acute kidney injury with a BUN of 47 and creatinine of 3.19 which were previously normal in January. NT proBNP was 1040. EKG showed sinus tachycardia with no evidence of ischemia. On examination the patient is r esting in the emergency department. Her daughter is at the bedside. Patient is overall feeling weak and tired. She also complains of some generalized body aches. According to the patient and her daughter she been eating and drinking okay at home. THERE IS SOME QUESTION OF SOME EXCESSIVE NSAID USE. She denies any current complaints of worsening shortness of breath this time. Echocardiogram with Doppler study in November showed a normal LV systolic function with an ejection fraction between 55-60%, negative saline bubble study, trace to mild AI, mild MR, mild TR and mild pulmonary hypertension. Past Medical History Past Medical History: Cancer, COPD, Fibromyalgia, Osteoarthritis (OA), Pneumonia, Rheumatoid Arthritis (RA) Additional Past Medical History / Comment(s): Pt tested covid + 03/07/21 [facility] ER. 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 L hand and ulcer on L wrist History of Any Multi-Drug Resistant Organisms: None Reported Date of last positivie culture/infection: 01/30/22 MDRO Source:: stool Past Surgical History: Back Surgery, Hysterectomy, Joint Replacement, Orthopedic Surgery Additional Past Surgical History / Comment(s): L partial nephrectomy, R wrist surgery for fracture, 3 L spine surgeries, 2 cervical surgeries, L hemiarthroplasty d/t fracture, colonoscopy Past Anesthesia/Blood Transfusion Reactions: No Reported Reaction Past Psychological History: Depression Smoking Status: Former smoker Past Alcohol Use History: None Reported, Occasional Past Drug Use History: None Reported - Past Family History Father Family Medical History: Cancer Additional Family Medical History / Comment(s): LUNG CA Mother Family Medical History: Osteoarthritis (OA) Medications and Allergies Home Medications Medication Instructions Recorded Confirmed Type Raloxifene [Evista] 60 mg PO DAILY 02/07/15 11/12/22 History Sertraline HCl [Zoloft] 100 mg PO BID 02/07/15 11/12/22 History risperiDONE [RisperDAL] 2 mg PO HS 04/05/15 11/12/22 History busPIRone HCl [Buspar] 10 mg PO BID PRN 01/14/20 11/12/22 History traZODone HCL 100 mg PO HS 01/14/20 11/12/22 History Naproxen 500 mg PO BID PRN 03/07/21 11/12/22 History Dicyclomine HCl 10 - 20 mg PO QID PRN 12/16/21 11/12/22 History Ergocalciferol (Vitamin D2) 1,250 mcg PO Q7D 12/16/21 11/12/22 History [Drisdol (50,000 Iu)] amLODIPine [Norvasc] 10 mg PO DAILY #90 tab 12/20/21 11/12/22 Rx oxyCODONE-APAP 7.5-325MG [Percocet 1 tab PO Q6H PRN #12 tab 12/24/21 11/12/22 Rx 7.5-325 mg] Albuterol Sulfate [Ventolin HFA] 2 puff INHALATION RT-Q6H PRN 01/30/22 11/12/22 History Acetaminophen Tab [Tylenol] 650 mg PO Q6H PRN 03/07/22 11/12/22 History Aspirin EC [Ecotrin Low Dose] 81 mg PO DAILY 11/12/22 11/12/22 History Atorvastatin [Lipitor] 10 mg PO DAILY 11/12/22 11/12/22 History Budesonide/Formoterol Fumarate 1 puff INHALATION RT-BID 11/12/22 11/12/22 History [Symbicort 160-4.5 Mcg Inhaler] Gabapentin 800 mg PO TID 11/12/22 11/12/22 History Levothyroxine Sodium 125 mcg PO DAILY 11/12/22 11/12/22 History Meclizine [Antivert] 12.5 mg PO BID PRN 11/12/22 11/12/22 History Pantoprazole [Protonix] 40 mg PO DAILY 11/12/22 11/12/22 History Allergies Allergy/AdvReac Type Severity Reaction Status Date / Time Penicillins Allergy Dyspnea Verified 11/12/22 16:16 aspirin AdvReac Nausea & Verified 11/12/22 16:16 Vomiting morphine AdvReac Hallucinati Verified 11/12/22 16:16 ons Physical Exam Vitals: Vital Signs Temp Pulse Resp BP Pulse Ox 11/13/22 11:55 102 H 11/13/22 11:46 102 H 11/13/22 08:13 110 H 11/13/22 08:02 105 H 93 L 11/13/22 05:43 111 H 20 155/86 98 11/13/22 03:51 97.9 F 107 H 22 165/78 98 11/13/22 00:49 104 H 18 167/93 97 11/12/22 21:03 115 H 11/12/22 20:52 112 H 97 11/12/22 20:26 102 H 22 156/95 98 11/12/22 18:00 106 H 22 163/71 98 11/12/22 16:30 105 H 21 155/70 98 11/12/22 16:27 105 H 20 155/70 98 11/12/22 16:19 104 H 11/12/22 16:04 102 H 11/12/22 14:33 98.9 F 112 H 24 126/70 98 Intake and Output 11/12/22 11/13/22 11/13/22 22:59 06:59 14:59 Output Total 1650 Balance -1650 Output: Urine 1650 PHYSICAL EXAMINATION: This is a 72-year-old female in no apparent distress at the time of my examination. HEENT: Head is atraumatic, normocephalic. Pupils are equal, round. Sclerae anicteric. Conjunctivae are clear. Mucous membranes of the mouth are moist. Neck is supple. There is no elevated jugular venous pressure. No carotid bruit is h eard. CHEST EXAMINATION: Lungs reveal diminished air entry bilaterally. No wheezes rales or rhonchi. Respirations even and nonlabored. HEART EXAMINATION: Heart regular, positive S1 and S2. No S3. No S4. Soft systolic murmur. ABDOMEN: Soft, nontender. Bowel sounds are heard. No organomegaly noted. EXTREMITIES: 2+ peripheral pulses with no evidence of peripheral edema and no calf tenderness noted. NEUROLOGIC EXAMINATION: Patient is awake, drowsy and oriented x3. Results 11/13/22 06:37 11/13/22 06:37 Cardiac Enzymes 11/12/22 11/12/22 Range/Units 14:50 14:50 AST 54 H (14-36) U/L Troponin I <0.012 (0.000-0.034) ng/mL Coagulation 11/12/22 Range/Units 14:50 PT 11.4 (9.0-12.0) sec APTT 27.8 (22.0-30.0) sec CBC 11/12/22 11/13/22 Range/Units 14:50 06:37 WBC 7.4 5.9 (3.8-10.6) k/uL RBC 3.40 L 3.41 L (3.80-5.40) m/uL Hgb 10.7 L 10.4 L (11.4-16.0) gm/dL Hct 31.7 L 32.5 L (34.0-46.0) % Plt Count 108 L 113 L (150-450) k/uL Comprehensive Metabolic Panel 11/12/22 11/13/22 Range/Units 14:50 06:37 Sodium 137 139 (137-145) mmol/L Potassium 5.0 4.3 (3.5-5.1) mmol/L Chloride 109 H 107 (98-107) mmol/L Carbon Dioxide 14 L 16 L (22-30) mmol/L BUN 47 H 49 H (7-17) mg/dL Creatinine 3.19 H 2.19 H (0.52-1.04) mg/dL Glucose 102 H 138 H (74-99) mg/dL Calcium 8.6 9.0 (8.4-10.2) mg/dL AST 54 H (14-36) U/L ALT 21 (4-34) U/L Alkaline Phosphatase 75 (38-126) U/L Total Protein 6.8 (6.3-8.2) g/dL Albumin 4.0 (3.5-5.0) g/dL Current Medications Generic Name Dose Route Start Last Admin Trade Name Freq PRN Reason Stop Dose Admin Albuterol Sulfate 2.5 mg 11/12/22 19:07 11/13/22 11:45 Albuterol Nebulized 2.5 Mg/3 Ml INHALATION 2.5 mg RT-Q6H PRN Administration Shortness Of Breath Amlodipine Besylate 10 mg 11/13/22 09:00 11/13/22 09:11 Amlodipine 10 Mg Tab PO 10 mg DAILY MARU Administration Atorvastatin Calcium 10 mg 11/13/22 09:00 11/13/22 09:12 Atorvastatin 10 Mg Tab PO 10 mg DAILY MARU Administration Budesonide/Formoterol Fumarate 2 puff 11/12/22 20:00 11/13/22 08:01 Symbicort 160-4.5 Mcg Inhaler INHALATION 2 puff RT-BID MARU Administration Buspirone HCl 10 mg 11/12/22 19:07 Buspirone Hcl 10 Mg Tab PO BID PRN Anxiety Furosemide 40 mg 11/12/22 20:00 11/13/22 09:11 Furosemide 10 Mg/Ml 4 Ml Vial IV 40 mg Q12H MARU Administration Gabapentin 200 mg 11/13/22 09:00 11/13/22 09:11 Gabapentin 100 Mg Cap PO 200 mg BID MARU Administration Levothyroxine Sodium 125 mcg 11/13/22 06:30 11/13/22 09:12 Levothyroxine 125 Mcg Tab PO 125 mcg 0630 MARU Administration Miscellaneous Information 1 each 11/13/22 10:10 Magnesium Replacement Protocol 1 Each Misc MISCELLANE DAILY PRN Per Protocol Protocol Oxycodone/Acetaminophen 1 each 11/12/22 19:07 Oxycodone-Apap 7.5-325mg 1 Each Tab PO Q6H PRN Pain Risperidone 2 mg 11/12/22 21:00 11/12/22 20:20 Risperidone 2 Mg Tab PO 2 mg HS MARU Administration Sertraline HCl 100 mg 11/12/22 21:00 11/13/22 09:11 Sertraline 100 Mg Tab PO 100 mg BID MARU Administration Sodium Bicarbonate 650 mg 11/13/22 21:00 Sodium Bicarbonate Tab 650 Mg Tab PO BID MARU Trazodone HCl 100 mg 11/12/22 21:00 11/12/22 20:20 Trazodone Hcl 100 Mg Tab PO 100 mg HS MARU Administration Intake and Output 11/12/22 11/13/22 11/13/22 22:59 06:59 14:59 Output Total 1650 Balance -1650 Output: Urine 1650 11/13/22 06:37 11/13/22 06:37 Assessment and Plan Assessment: #1 acute kidney injury could be secondary to NSAID use #2 Chest Xray showing diffuse left greater than right interstitial edema and/or infiltrates with a normal NT proBNP in the setting of acute kidney injury, patient does not appear to be in acute failure #3 COPD #4 hypertension #5 hyperlipidemia Plan: From cardiology perspective we will repeat a 2-D echo with Doppler study to assess cardiac structure and function. We will stop the IV Lasix and hydrate the patient with 0.9 normal saline at 75 miles per hour. Continue to monitor the renal function. It is unlikely patient will require further cardiac workup at this time. We will continue to follow the patient provided further recommendations accordingly. 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 Patient was seen and examined.
--- NOTE | 2022-11-13 14:41 | P.HPIM ---
History of Present Illness H&P Date: 11/13/22 This is a 72 year old female with medical history of COPD, renal carcinoma with surgery, hypothyroidism, fibromyalgia, rheumatoid arthritis, left partial nephrectomy, former smoker. She has history of left wrist fracture with surgery and osteomyelitis which has required IV antibiotics outpatient in the past, currently on oral antibiotics chronically for this. Patient presents this admission with short of breath and fatigue over the last few days. Reports low grade fever, weakness states her legs won't work. Denies chest pain. EMS found patient to be hypoxic on 5L of nasal cannula with saturation in the low 80s. Patient is on 5L nasal cannula chronically. Chest xray showing left greater than right interstitial edema and/or infiltrates. EKG showing sinus tachycardia with heart rate of 102, no ST or [place] abnormalities noted. On admission creatinine was found to be elevated at 3.19. proBNP 1040. Influenza, covid and RSV negative. Urine negative for infection. Patient has no white count, hgb stable at 10.7. Patient has been started on IV lasix 40 mg Q12 and creatinine has improved down to 2.19. Most recent echocardiogram in November of 2021 showing an EF of 55 to 60%, mild TR, mild MR, mild pulmonary hypertension. She has diuresed well and lung sounds have improved, no lower extremity edema. Cardiology and nephroloy have been consulted. REVIEW OF SYSTEMS: CONSTITUTIONAL: No fever, reports malaise Reports fatigue HEENT: No recent visual problems or hearing problems. Denied any sore throat. CARDIOVASCULAR: No chest pain, orthopnea, PND, no palpitations, no syncope. PULMONARY: Reports shortness of breath, no cough, no hemoptysis. GASTROINTESTINAL: No diarrhea, no nausea, no vomiting, no abdominal pain. NEUROLOGICAL: No headaches, no numbness. Reports diffuse generalized weakness. HEMATOLOGICAL: Denies any bleeding or petechiae. GENITOURINARY: Denies any burning micturition, frequency, or urgency. MUSCULOSKELETAL/RHEUMATOLOGICAL: Denies any joint pain, swelling, or any muscle pain. ENDOCRINE: Denies any polyuria or polydipsia. The rest of the 14-point review of systems is negative. PHYSICAL EXAMINATION: GENERAL: The patient is alert and oriented x3, not in any acute distress. Well developed, well nourished. Fatigued. HEENT: Pupils are round and equally reacting to light. EOMI. No scleral icterus. No conjunctival pallor. Normocephalic, atraumatic. No pharyngeal erythema. No thyromegaly. CARDIOVASCULAR: S1 and S2 present. No murmurs, rubs, or gallops. PULMONARY: Chest is clear to auscultation, no wheezing or crackles. Diminished. ABDOMEN: Soft, nontender, nondistended, normoactive bowel sounds. No palpable organomegaly. MUSCULOSKELETAL: No joint swelling or deformity. EXTREMITIES: No cyanosis, clubbing, or pedal edema. NEUROLOGICAL: Gross neurological examination did not reveal any focal deficits. Generalized weakness. SKIN: No rashes. Deformity to right arm, there is small open wound to right wrist with bandaid covering, minimal drainage no surrounding redness. Chronic Assessment and Plan Assessment Dyspnea Acute on chronic hypoxic respiratory failure multifactorial secondary to volume overload and possible COPD exacerbation Acute kidney injury possibly from NSAID use Acute COPD exacerbation Metabolic acidosis secondary to ANNA Tachycardia Hypertension Hyperlipidemia Generalized weakness History hypothyroidism Obesity Former smoker GI prophylaxis DVT prophylaxis Plan Continue current home medications Monitor off IV fluids IV lasix discontinued Echocardiogram pending Nephrology has ordered renal ultrasound PT and OT will be consulted The impression and plan of care has been dictated by Jennifer Gaxiola Nurse Practitioner as directed. Dr. Whit MD I have performed a history and physical examination and medical decision making of this patient, discussed the same with the dictator, and agree with the dictators assessment and plan as written, documented as a scribe. Based on total visit time, I have performed more than 50% of this visit. Past Medical History Past Medical History: Cancer, COPD, Fibromyalgia, Osteoarthritis (OA), Pneumonia, Rheumatoid Arthritis (RA) Additional Past Medical History / Comment(s): Pt tested covid + 03/07/21 [facility] ER. 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 L hand and ulcer on L wrist History of Any Multi-Drug Resistant Organisms: None Reported Date of last positivie culture/infection: 01/30/22 MDRO Source:: stool Past Surgical History: Back Surgery, Hysterectomy, Joint Replacement, Orthopedic Surgery Additional Past Surgical History / Comment(s): L partial nephrectomy, R wrist surgery for fracture, 3 L spine surgeries, 2 cervical surgeries, L hemiarthroplasty d/t fracture, colonoscopy Past Anesthesia/Blood Transfusion Reactions: No Reported Reaction Past Psychological History: Depression Smoking Status: Former smoker Past Alcohol Use History: None Reported, Occasional Past Drug Use History: None Reported - Past Family History Father Family Medical History: Cancer Additional Family Medical History / Comment(s): LUNG CA Mother Family Medical History: Osteoarthritis (OA) Medications and Allergies Home Medications Medication Instructions Recorded Confirmed Type Raloxifene [Evista] 60 mg PO DAILY 02/07/15 11/12/22 History Sertraline HCl [Zoloft] 100 mg PO BID 02/07/15 11/12/22 History risperiDONE [RisperDAL] 2 mg PO HS 04/05/15 11/12/22 History busPIRone HCl [Buspar] 10 mg PO BID PRN 01/14/20 11/12/22 History traZODone HCL 100 mg PO HS 01/14/20 11/12/22 History Naproxen 500 mg PO BID PRN 03/07/21 11/12/22 History Dicyclomine HCl 10 - 20 mg PO QID PRN 12/16/21 11/12/22 History Ergocalciferol (Vitamin D2) 1,250 mcg PO Q7D 12/16/21 11/12/22 History [Drisdol (50,000 Iu)] amLODIPine [Norvasc] 10 mg PO DAILY #90 tab 12/20/21 11/12/22 Rx oxyCODONE-APAP 7.5-325MG [Percocet 1 tab PO Q6H PRN #12 tab 12/24/21 11/12/22 Rx 7.5-325 mg] Albuterol Sulfate [Ventolin HFA] 2 puff INHALATION RT-Q6H PRN 01/30/22 11/12/22 History Acetaminophen Tab [Tylenol] 650 mg PO Q6H PRN 03/07/22 11/12/22 History Aspirin EC [Ecotrin Low Dose] 81 mg PO DAILY 11/12/22 11/12/22 History Atorvastatin [Lipitor] 10 mg PO DAILY 11/12/22 11/12/22 History Budesonide/Formoterol Fumarate 1 puff INHALATION RT-BID 11/12/22 11/12/22 History [Symbicort 160-4.5 Mcg Inhaler] Gabapentin 800 mg PO TID 11/12/22 11/12/22 History Levothyroxine Sodium 125 mcg PO DAILY 11/12/22 11/12/22 History Meclizine [Antivert] 12.5 mg PO BID PRN 11/12/22 11/12/22 History Pantoprazole [Protonix] 40 mg PO DAILY 11/12/22 11/12/22 History Allergies Allergy/AdvReac Type Severity Reaction Status Date / Time Penicillins Allergy Dyspnea Verified 11/12/22 16:16 aspirin AdvReac Nausea & Verified 11/12/22 16:16 Vomiting morphine AdvReac Hallucinati Verified 11/12/22 16:16 ons Physical Exam Vitals: Vital Signs Temp Pulse Resp BP Pulse Ox 11/13/22 08:13 110 H 11/13/22 08:02 105 H 93 L 11/13/22 05:43 111 H 20 155/86 98 11/13/22 03:51 97.9 F 107 H 22 165/78 98 11/13/22 00:49 104 H 18 167/93 97 11/12/22 21:03 115 H 11/12/22 20:52 112 H 97 11/12/22 20:26 102 H 22 156/95 98 11/12/22 18:00 106 H 22 163/71 98 11/12/22 16:30 105 H 21 155/70 98 11/12/22 16:27 105 H 20 155/70 98 11/12/22 16:19 104 H 11/12/22 16:04 102 H 11/12/22 14:33 98.9 F 112 H 24 126/70 98 Intake and Output 11/12/22 11/13/22 11/13/22 22:59 06:59 14:59 Output Total 1650 Balance -1650 Output: Urine 1650 Results CBC & Chem 7: 11/13/22 06:37 11/13/22 06:37 Labs: Abnormal Lab Results - Last 24 Hours (Table) 11/12/22 11/12/22 11/12/22 Range/Units 14:50 14:50 15:10 RBC 3.40 L (3.80-5.40) m/uL Hgb 10.7 L (11.4-16.0) gm/dL Hct 31.7 L (34.0-46.0) % Plt Count 108 L (150-450) k/uL Lymphocytes # 0.6 L (1.0-4.8) k/uL ABG pH 7.26 L (7.35-7.45) ABG HCO3 18 L (21-25) mmol/L Chloride 109 H (98-107) mmol/L Carbon Dioxide 14 L (22-30) mmol/L BUN 47 H (7-17) mg/dL Creatinine 3.19 H (0.52-1.04) mg/dL Glucose 102 H (74-99) mg/dL AST 54 H (14-36) U/L Urine Protein (Negative) Urine Blood (Negative) Ur Leukocyte Esterase (Negative) Urine Bacteria (None) /hpf Hyaline Casts (0-2) /lpf 11/13/22 11/13/22 11/13/22 Range/Units 06:37 06:37 07:25 RBC 3.41 L (3.80-5.40) m/uL Hgb 10.4 L (11.4-16.0) gm/dL Hct 32.5 L (34.0-46.0) % Plt Count 113 L (150-450) k/uL Lymphocytes # (1.0-4.8) k/uL ABG pH (7.35-7.45) ABG HCO3 (21-25) mmol/L Chloride (98-107) mmol/L Carbon Dioxide 16 L (22-30) mmol/L BUN 49 H (7-17) mg/dL Creatinine 2.19 H (0.52-1.04) mg/dL Glucose 138 H (74-99) mg/dL AST (14-36) U/L Urine Protein Trace H (Negative) Urine Blood Small H (Negative) Ur Leukocyte Esterase Small H (Negative) Urine Bacteria Occasional H (None) /hpf Hyaline Casts 4 H (0-2) /lpf Assessment and Plan Time with Patient: Less than 30
[2022-11-13 19:31] LABS: Glucose,Whole Blood 132 mg/dL (70-110)
[2022-11-13] MEDS: traZODone HCL 100 MG TAB PO SCH (21:34)
[2022-11-13] MEDS: SODIUM BICARBONATE TAB 650 MG TAB PO SCH (21:34)
[2022-11-14] MEDS: GABAPENTIN 100 MG CAP PO SCH ×3 (00:34→20:25)
[2022-11-14] MEDS: risperiDONE 2 MG TAB PO SCH ×2 (03:58→20:25)
[2022-11-14] MEDS: SYMBICORT 160-4.5 MCG INHALER INHALATION SCH ×2 (07:50→20:26)
[2022-11-14 08:53] LABS: Calcium 9.3 mg/dL (8.4-10.2); Magnesium 2.5 mg/dL (1.6-2.3); Potassium 4.5 mmol/L (3.5-5.1)
[2022-11-14] MEDS ORDERED: ONDANSETRON 4 MG/2 ML VIAL IVP PRN (09:13)
[2022-11-14] MEDS ORDERED: ACETAMINOPHEN TAB 325 MG TAB PO PRN (09:38)
[2022-11-14] MEDS ORDERED: METOPROLOL TARTRATE 50 MG TAB PO SCH (09:45)
[2022-11-14 10:50] VITALS: BMI 31.6
[2022-11-14] MEDS: LEVOTHYROXINE 125 MCG TAB PO SCH (10:50)
--- NOTE | 2022-11-14 10:52 | XR ---
EXAMINATION TYPE: XR chest 1V DATE OF EXAM: 11/14/2022 COMPARISON: 11/12/2022 INDICATION: Short of breath TECHNIQUE: Single frontal view of the chest is obtained. FINDINGS: The heart size is normal. The pulmonary vasculature is normal. Mild retrocardiac infiltrate is not excluded. Clinical correlation is recommended. Thoracolumbar fixa tion is evident. Patient is rotated to the left. IMPRESSION: 1. Clinical correlation recommended for mild retrocardiac infiltrate. Follow-up can be performed as c linically indicated.
--- NOTE | 2022-11-14 10:54 | P.PN ---
Subjective Patient is seen for follow-up for acute kidney injury secondary to NSAIDs. Patient has underlying chronic hypoxic respiratory failure She was admitted to the hospital with increased weakness and shortness of breath. Chest x-ray shows diffuse bilateral infiltrates suggesting possible interstitial edema. Patient was diuresed on initial admission. She had about 1.6 L of urine documented for last 24 hours. Serum creatinine increased to 2.6 mg/dL today. Patient had urine retention with post void to scan showing 500 mL. Repeat bladder scan has been ordered. Blood pressure has not been low. Lasix held yesterday. This morning patient was noted to have had an emesis. She has not had any diarrhea. Patient remains on 5 L nasal cannula with O2 sats at 93-94%. T-max 100.3 today and heart rate was noted at 133. Objective - Vital Signs Vital signs: Vital Signs Temp 100.3 F H 11/14/22 08:00 Pulse 133 H 11/14/22 08:00 Resp 19 11/14/22 08:00 BP 183/76 11/14/22 08:00 Pulse Ox 94 L 11/14/22 08:00 FiO2 Intake & Output 11/13/22 11/14/22 11/14/22 18:59 06:59 18:59 Output Total 500 Balance -500 Weight 81 kg Output: Urine 0 Post Void Residual 500 Other: # Voids 0 - Exam Sleeping but arousable Comfortable No acute distress Significant upper respiratory secretions noted Examination of the heart S1 and S2 Examination lungs decreased breath sounds at the bases Abdomen is soft obese Examination lower extremities shows no evidence of edema [employer] exam shows patient is moving all 4 extremities. - Labs CBC & Chem 7: 11/13/22 06:37 11/14/22 07:48 Labs: Abnormal Lab Results - Last 24 Hours (Table) 11/13/22 11/14/22 Range/Units 19:30 07:48 Carbon Dioxide 19 L (22-30) mmol/L BUN 64 H (7-17) mg/dL Creatinine 2.63 H (0.52-1.04) mg/dL Glucose 124 H (74-99) mg/dL POC Glucose (mg/dL) 132 H (70-110) mg/dL Magnesium 2.5 H (1.6-2.3) mg/dL Assessment and Plan Assessment: 1. Acute kidney injury secondary to NSAIDs and possibly cardiorenal. Serum creatinine had improved but worsened again today. Possibly related to underlying urine retention. Lasix is currently on hold. A repeat chest x-ray was performed this morning. Result is pending. UA shows trace protein and small blood. Previous creatinine 0.6 on 02/11/2022. 2. Volume overload on initial admission, improved 3. Acute on top of chronic hypoxic respiratory failure associated with possible pneumonia and possible exacerbation of COPD. Element of volume overload on initial admission improved. 4. Chronic hypoxic respiratory failure from COPD 5. Metabolic acidosis non-gap associated with acute kidney injury, add oral sodium bicarb Plan: Repeat post void bladder scan Check ultrasound of the kidneys Continue off of Lasix Follow-up on repeat chest x-ray If patient has poor oral intake we can add gentle IV hydration. Repeat labs in a.m.
[2022-11-14] MEDS: SODIUM CHLORIDE 0.9% 1,000 ML IV SCH (11:05)
[2022-11-14] MEDS: amLODIPine 10 MG TAB PO SCH (12:00)
[2022-11-14] MEDS ORDERED: CEFEPIME 2 GM in SODIUM CHLORIDE 0.9% 100 ML IVPB SCH (12:00)
[2022-11-14] MEDS ORDERED: ACETAMINOPHEN IV (For NPO) 1,000 MG in EMPTY BAG 1 BAG IVPB ONE (13:00)
--- NOTE | 2022-11-14 13:19 | US ---
EXAMINATION TYPE: US kidneys/renal and bladder DATE OF EXAM: 11/14/2022 COMPARISON: CT 2021 CLINICAL HISTORY: anna. ANNA. *Hx partial left nephrectomy per RN. EXAM MEASUREMENTS: Right Kidney: 10.8 x 4.9 x 5.5 cm Left Kidney: What appears to be kidney tissue was measured: 7.0 x 4.1 x 4.5 cm. History of partial le ft nephrectomy per RN. Exam is very limited due to gas and patient body habitus. Right Kidney: No hydronephrosis or masses seen Left Kidney: Very limited visibility. What appears to be kidney tissue was measured. Appears heteroge neous. Hyperechoic area with shadowing seen: 1.1 x 0.8 x 0.5 cm. Bladder: Not seen Bilateral Jets seen: No Incidental finding: spleen appears enlarged: 14.1 cm. Multiple hyperechoic areas seen within the sp jose alberto, largest measures: 0.6 x 0.6 x 0.8 cm. IMPRESSION: 1. Nonobstructing left renal stones.
[2022-11-14] MEDS: SODIUM BICARBONATE TAB 650 MG TAB PO SCH ×2 (13:27→20:25)
[2022-11-14] MEDS: ATORVASTATIN 10 MG TAB PO SCH (13:28)
[2022-11-14] MEDS: SERTRALINE 100 MG TAB PO SCH ×2 (13:28→20:25)
--- NOTE | 2022-11-14 14:43 | P.PN ---
Subjective Progress Note Date: 11/14/22 This is a pleasant 72-year-old female patient with past medical history of COPD, on home oxygen since February 2021 after having COVID-19 infection, renal cell carcinoma. Also has a history of hypertension, hyperlipidemia and hypothyroidism. She denies history of coronary artery valvular heart disease. Presented to the emergency department with progressively worsening malaise, weakness and shortness of breath. We were asked to see the patient in consultation after chest x-ray showed low lung volumes with diffuse left greater than right interstitial edema and/or infiltrates identified. Laboratory values on admission showed evidence of acute kidney injury with a BUN of 47 and creatinine of 3.19 which were previously normal in January. NT proBNP was 1040. EKG showed sinus tachycardia with no evidence of ischemia. On examination the patient is resting in the emergency department. Her daughter is at the bedside. Patient is overall feeling weak and tired. She also complains of some generalized body aches. According to the patient and her daughter she been eating and drinking okay at home. THERE IS SOME QUESTION OF SOME EXCESSIVE NSAID USE. She denies any current complaints of worsening shortness of breath this time. Echocardiogram with Doppler study in November showed a normal LV sys tolic function with an ejection fraction between 55-60%, negative saline bubble study, trace to mild AI, mild MR, mild TR and mild pulmonary hypertension. 11/14/2022 The patient is more lethargic today. She is tachycardic and hypotensive. She has been febrile and had emesis this morning. She been initiated on antibiotics by primary. Creatinine this morning was 2.63. IV hydration was started this morning. Blood cultures have been drawn and ID consult has been requested. Objective - Vital Signs Vital signs: Vital Signs Temp 100.2 F H 11/14/22 11:00 Pulse 120 H 11/14/22 11:00 Resp 21 11/14/22 11:00 BP 94/51 11/14/22 11:00 Pulse Ox 95 11/14/22 11:00 FiO2 Intake & Output 11/13/22 11/14/22 11/14/22 18:59 06:59 18:59 Output Total 500 Balance -500 Weight 81 kg 81 kg Output: Urine 0 Post Void Residual 500 Other: # Voids 0 - Exam HEENT: Head is atraumatic, normocephalic. Pupils are equal, round. Sclerae anicteric. Conjunctivae are clear. Mucous membranes of the mouth are moist. Neck is supple. There is no elevated jugular venous pressure. No carotid bruit is heard. CHEST EXAMINATION: Lungs reveal diminished air entry bilaterally. No wheezes rales or rhonchi. Respirations even and nonlabored. HEART EXAMINATION: Heart regular, positive S1 and S2. No S3. No S4. Soft systolic murmur. ABDOMEN: Soft, nontender. Bowel sounds are heard. No organomegaly noted. EXTREMITIES: 2+ peripheral pulses with no evidence of peripheral edema and no calf tenderness noted. NEUROLOGIC EXAMINATION: Patient is awake, drowsy and oriented x3. - Labs CBC & Chem 7: 11/13/22 06:37 11/14/22 07:48 Labs: Abnormal Lab Results - Last 24 Hours (Table) 11/13/22 11/14/22 11/14/22 Range/Units 19:30 07:48 10:03 Carbon Dioxide 19 L (22-30) mmol/L BUN 64 H (7-17) mg/dL Creatinine 2.63 H (0.52-1.04) mg/dL Glucose 124 H (74-99) mg/dL POC Glucose (mg/dL) 132 H (70-110) mg/dL Magnesium 2.5 H (1.6-2.3) mg/dL C-Reactive Protein 23.6 H (<1.0) mg/dL Assessment and Plan Assessment: #1 acute kidney injury could be secondary to NSAID use #2 Chest Xray showing diffuse left greater than right interstitial edema and/or infiltrates with a normal NT proBNP in the setting of acute kidney injury, patient does not appear to be in acute failure #3 probable sepsis #4 COPD #5 hypertension #6 hyperlipidemia Plan: From cardiology perspective we will repeat a 2-D echo with Doppler study to assess cardiac structure and function. If there is no significant abnormality in the echocardiogram will follow the patient on an as-needed basis. Please do not hesitate to contact us with questions. PRODUCTION COST ESTIMATOR note has been reviewed, I agree with a documented findings and plan of care. Patient was seen and examined.
--- NOTE | 2022-11-14 17:15 | CA ---
Transthoracic Echo Report Name: Jessica Burnett Age: 72 Gender: F : 1950 Exam Date: 11/14/2022 12:00 Exam Location: [facility] Ht (in): 63 Wt (lb): 176 Ordering Physician: Karlie Weaver Attending/Referring Phys: [id number], Owen Upholsterer [employer] Lacey Garcia RDCS Procedure CPT: Indications: pulmonary edema Cardiac Hx: Technical Quality: Contrast 1: Total Dose (mL): Contrast 2: Total Dose (mL): MEASUREMENTS (Male / Female) Normal Values 2D ECHO LV Diastolic Diameter PLAX 3.5 cm 4.2 - 5.9 / 3.9 - 5.3 cm LV Systolic Diameter PLAX 3.2 cm IVS Diastolic Thickness 1.1 cm 0.6 - 1.0 / 0.6 - 0.9 cm LVPW Diastolic Thickness 1.5 cm 0.6 - 1.0 / 0.6 - 0.9 cm LV Relative Wall Thickness 0.8 RV Internal Dim ED PLAX 2.7 cm M-MODE Aortic Root Diameter MM 2.7 cm LA Systolic Diameter MM 3.5 cm LA Ao Ratio MM 1.3 MV E Point Septal Separation 0.7 cm AV Cusp Separation MM 1.5 cm DOPPLER MV Area PHT 3.6 cm??? Mitral E Point Velocity 42.7 cm/s Mitral A Point Velocity 87.5 cm/s Mitral E to A Ratio 0.5 MV Deceleration Time 208.8 ms TR Peak Velocity 203.5 cm/s TR Peak Gradient 16.6 mmHg Right Ventricular Systolic Press 21.6 mmHg FINDINGS Left Ventricle Mildly increased septal wall thickness. Left ventricular ejection fraction is estimated at 55%. Right Ventricle Normal right ventricular size and function. Right ventricular systolic pressure within normal limits. Right Atrium Normal right atrial size. Left Atrium Normal left atrial size. Mitral Valve Structurally normal mitral valve. Mild mitral regurgitation. Aortic Valve Trileaflet aortic valve. Tricuspid Valve Structurally normal tricuspid valve. Mild tricuspid regurgitation. Pulmonic Valve Structurally normal pulmonic valve. Pericardium Echo free space anterior to the right ventricle likely represents a fat pad. Aorta Normal size aortic root and proximal ascending aorta. CONCLUSIONS Normal LV function Mild mitral regurgitation Previewed by: Dr. Abe Osei MD (Electronically Signed) Final Date: 14 November 2022 17:14
--- NOTE | 2022-11-14 20:14 | P.PN ---
Subjective Progress Note Date: 11/14/22 This is a 72 year old female with medical history of COPD, renal carcinoma with surgery, hypothyroidism, fibromyalgia, rheumatoid arthritis, left partial nephrectomy, former smoker. She has history of left wrist fracture with surgery and osteomyelitis which has required IV antibiotics outpatient in the past, currently on oral antibiotics chronically for this. Patient presents this admission with short of breath and fatigue over the last few days. Reports low grade fever, weakness states her legs won't work. Denies chest pain. EMS found patient to be hypoxic on 5L of nasal cannula with saturation in the low 80s. Patient is on 5L nasal cannula chronically. Chest xray showing left greater than right interstitial edema and/or infiltrates. EKG showing sinus tachycardia with heart rate of 102, no ST or Twave abnormalities noted. On admission creatinine was found to be elevated at 3.19. proBNP 1040. Influenza, covid and RSV negative. Urine negative for infection. Patient has no white count, hgb stable at 10.7. Patient has been started on IV lasix 40 mg Q12 and creatinine has improved down to 2.19. Most recent echocardiogram in November of 2021 showing an EF of 55 to 60%, mild TR, mild MR, mild pulmonary hypertension. She has diuresed well and lung sounds have improved, no lower extremity edema. Cardiology and nephroloy have been consulted. 11/14/2022 Patient evaluated today on stepdown unit. Family at bedside, she is more lethargic today, had an episode of emesis. IV lasix held yesterday patient has diuresed over 2.1 Liters. Creatinine today increased up to 2.69, she is started on gentle hydration normal saline at 50 mls per hour. Had some urinary retention. Chest xray today shows mild retrocardiac infiltrate. Echocardiogram showing normal LV function and mild mitral regurgitation. Patient also had abdominal ultrasound performed showing nonobstructing renal stones and also splenomegaly. Procalcitonin elevated at 0.62. Patient did have temp max today 100.3 axillary. Blood pressure was elevated overnight, currently running 103/67. Continues to maintain oxygen saturations on 5L nasal cannula. Infectious disease consulted and patient has been started on IV cefepime. Nephrology and cardiology following. Unable to complete full review of systems patient is lethargic today. PHYSICAL EXAMINATION: GENERAL: The patient is alert and oriented x1-2 lethargic, not in any acute di stress. Well developed, well nourished. Fatigued. on 5L nasal cannula HEENT: Pupils are round and equally reacting to light. EOMI. No scleral icterus. No conjunctival pallor. Normocephalic, atraumatic. No pharyngeal erythema. No thyromegaly. CARDIOVASCULAR: S1 and S2 present. No murmurs, rubs, or gallops. PULMONARY: Chest is clear to auscultation, no wheezing or crackles. Diminished. ABDOMEN: Soft, nontender, nondistended, normoactive bowel sounds. No palpable organomegaly. MUSCULOSKELETAL: No joint swelling or deformity. EXTREMITIES: No cyanosis, clubbing, or pedal edema. NEUROLOGICAL: Gross neurological examination did not reveal any focal deficits. Generalized weakness. SKIN: No rashes. Deformity to right arm, there is small open wound to right wrist with bandaid covering, minimal drainage no surrounding redness. Chronic Assessment and Plan Assessment -Dyspnea -Altered mental status secondary to acute metabolic and toxic encephalopathy multifactorial secondary to ANNA and also possible pneumonia -Fever, tachycardia with sepsis secondary to possible right lung pneumonia, com munity acquired. Patient does have chronic wound to right wrist which is chronically non-healing possible source of infection although does not appear infected, no surrounding erythema, no drainage. Procalcitonin is slightly elevated at 0.62. Infectious disease consulted for further evaluation and r ecommendations. 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 Dr. Whit MD I have performed a history and physical examination and medical decision making of this patient, discussed the same with the dictator, and agree with the dictators assessment and plan as written, documented as a scribe. Based on total visit time, I have performed more than 50% of this visit. Objective - Vital Signs Vital signs: Vital Signs Temp 100.2 F H 11/14/22 11:00 Pulse 120 H 11/14/22 11:00 Resp 21 11/14/22 11:00 BP 94/51 11/14/22 11:00 Pulse Ox 95 11/14/22 11:00 FiO2 Intake & Output 11/13/22 11/14/22 11/14/22 18:59 06:59 18:59 Output Total 500 Balance -500 Weight 81 kg 81 kg Output: Urine 0 Post Void Residual 500 Other: # Voids 0 - Labs CBC & Chem 7: 11/13/22 06:37 11/14/22 07:48 Labs: Abnormal Lab Results - Last 24 Hours (Table) 11/13/22 11/14/22 11/14/22 Range/Units 19:30 07:48 10:03 Carbon Dioxide 19 L (22-30) mmol/L BUN 64 H (7-17) mg/dL Creatinine 2.63 H (0.52-1.04) mg/dL Glucose 124 H (74-99) mg/dL POC Glucose (mg/dL) 132 H (70-110) mg/dL Magnesium 2.5 H (1.6-2.3) mg/dL C-Reactive Protein 23.6 H (<1.0) mg/dL Assessment and Plan Time with Patient: Greater than 30
[2022-11-14] MEDS: traZODone HCL 100 MG TAB PO SCH (20:25)
--- NOTE | 2022-11-14 20:54 | P.CONS ---
History of Present Illness - Reason for Consult Consult date: 11/14/22 Fever Requesting physician: Jennifer Gaxiola - Chief Complaint Increasing shortness of breath x few days - History of Present Illness Patient is a 72-year-old female with a past medical history significant for COPD who was brought into the hospital 2 days ago on 11/12/2022 for evaluation of increasing shortness of breath that apparently was getting worse for 2 days before presentation hospital patient was complaining of getting exhausted and called EMS, patient was noticed to be hypoxic with the O2 sats of 80 on a 5 L nasal cannula is no clear history of any headache or URI symptoms or no chest pain or abdominal pain or any diarrhea patient was afebrile on admission and did have a normal white count patient did have an episode of vomiting this morning 2 of told the patient seemed having more difficulty breathing is currently lethargic and cannot provide a history most information has been obtained from the daughter at the bedside and the patient was noticed to have a fever of 100.3F that has prompted this infection disease consultation note that he has been reported Review of Systems Positive points has been mentioned in HPI complete review could not be obtained because of his underlying mental status Past Medical History Past Medical History: Cancer, COPD, Fibromyalgia, Osteoarthritis (OA), Pneumonia, Rheumatoid Arthritis (RA) Additional Past Medical History / Comment(s): Pt tested covid + 03/07/21 [facility] ER. 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 L hand and ulcer on L wrist History of Any Multi-Drug Resistant Organisms: None Reported Year Discovered:: 01/30/22 MDRO Source:: stool Past Surgical History: Back Surgery, Hysterectomy, Joint Replacement, Orthopedic Surgery Additional Past Surgical History / Comment(s): L partial nephrectomy, R wrist surgery for fracture, 3 L spine surgeries, 2 cervical surgeries, L hemiarthroplasty d/t fracture, colonoscopy Past Anesthesia/Blood Transfusion Reactions: No Reported Reaction Past Psychological History: Depression Smoking Status: Former smoker Past Alcohol Use History: None Reported, Occasional Past Drug Use History: None Reported - Past Family History Father Family Medical History: Cancer Additional Family Medical History / Comment(s): LUNG CA Mother Family Medical History: Osteoarthritis (OA) Medications and Allergies Home Medications Medication Instructions Recorded Confirmed Type Raloxifene [Evista] 60 mg PO DAILY 02/07/15 11/12/22 History Sertraline HCl [Zoloft] 100 mg PO BID 02/07/15 11/12/22 History risperiDONE [RisperDAL] 2 mg PO HS 04/05/15 11/12/22 History busPIRone HCl [Buspar] 10 mg PO BID PRN 01/14/20 11/12/22 History traZODone HCL 100 mg PO HS 01/14/20 11/12/22 History Naproxen 500 mg PO BID PRN 03/07/21 11/12/22 History Dicyclomine HCl 10 - 20 mg PO QID PRN 12/16/21 11/12/22 History Ergocalciferol (Vitamin D2) 1,250 mcg PO Q7D 12/16/21 11/12/22 History [Drisdol (50,000 Iu)] amLODIPine [Norvasc] 10 mg PO DAILY #90 tab 12/20/21 11/12/22 Rx oxyCODONE-APAP 7.5-325MG [Percocet 1 tab PO Q6H PRN #12 tab 12/24/21 11/12/22 Rx 7.5-325 mg] Albuterol Sulfate [Ventolin HFA] 2 puff INHALATION RT-Q6H PRN 01/30/22 11/12/22 History Acetaminophen Tab [Tylenol] 650 mg PO Q6H PRN 03/07/22 11/12/22 History Aspirin EC [Ecotrin Low Dose] 81 mg PO DAILY 11/12/22 11/12/22 History Atorvastatin [Lipitor] 10 mg PO DAILY 11/12/22 11/12/22 History Budesonide/Formoterol Fumarate 1 puff INHALATION RT-BID 11/12/22 11/12/22 History [Symbicort 160-4.5 Mcg Inhaler] Gabapentin 800 mg PO TID 11/12/22 11/12/22 History Levothyroxine Sodium 125 mcg PO DAILY 11/12/22 11/12/22 History Meclizine [Antivert] 12.5 mg PO BID PRN 11/12/22 11/12/22 History Pantoprazole [Protonix] 40 mg PO DAILY 11/12/22 11/12/22 History Allergies Allergy/AdvReac Type Severity Reaction Status Date / Time Penicillins Allergy Dyspnea Verified 11/12/22 16:16 aspirin AdvReac Nausea & Verified 11/12/22 16:16 Vomiting morphine AdvReac Hallucinati Verified 11/12/22 16:16 ons Physical Exam Vitals: Vital Signs Temp Pulse Pulse Resp BP BP Pulse Ox 11/14/22 08:00 100.3 F H 133 H 19 183/76 94 L 11/14/22 04:00 97.7 F 115 H 20 138/78 93 L 11/14/22 02:00 110 H 16 11/13/22 22:46 110 H 16 11/13/22 22:33 97.4 F L 110 H 20 149/83 97 11/13/22 19:37 102 H 16 120/66 94 L 11/13/22 18:00 103 H 18 150/70 99 11/13/22 14:10 102 H 18 130/102 90 L 11/13/22 11:55 102 H 11/13/22 11:46 102 H Intake and Output 11/13/22 11/14/22 11/14/22 22:59 06:59 14:59 Output Total 500 Balance -500 Output: Urine 0 Post Void Residual 500 Other: # Voids 0 Weight 81 kg GENERAL DESCRIPTION: Elderly female lying in bed, no distress. No tachypnea or accessory muscle of respiration use. HEENT: Shows Pallor , no scleral icterus. Oral mucous membrane is dry. No pharyngeal erythema or thrush NECK: Trachea central, no thyromegaly. LUNGS: Unlabored breathing. Decreased breath sounds at the base. HEART: S1, S2, regular rate and rhythm. No loud murmur ABDOMEN: Soft, no tenderness , guarding or rigidity, no organomegaly EXTREMITIES: No edema of feet. SKIN: No rash, no masses palpable. NEUROLOGICAL: The patient is sleepy lethargic orientation could not be determined Results CBC & Chem 7: 11/13/22 06:37 11/14/22 07:48 Labs: Abnormal Lab Results - Last 24 Hours (Table) 11/13/22 11/14/22 Range/Units 19:30 07:48 Carbon Dioxide 19 L (22-30) mmol/L BUN 64 H (7-17) mg/dL Creatinine 2.63 H (0.52-1.04) mg/dL Glucose 124 H (74-99) mg/dL POC Glucose (mg/dL) 132 H (70-110) mg/dL Magnesium 2.5 H (1.6-2.3) mg/dL Assessment and Plan (1) Fever Current Visit: Yes Status: Acute Code(s): R50.9 - FEVER, UNSPECIFIED SNOMED Code(s): 728726829 Plan: 1patient with an episode of fever in this patient admitted to the hospital with increasing shortness of breath she did have an episode of vomiting 2 this morning now with worsening shortness of breath and fever concerning for possible aspiration pneumonitis, patient abdominal soft on clinical examination no evidence of any cellulitis or joint swelling 2patient with a penicillin ALLERGY that would limit the number of antibiotic safe to use 3we will obtain a chest x-ray blood culture CRP and a pro-calcitonin 4patient will empirically started on cefepime Family the bedside and multiple questions concerned were answered We will follow on clinical condition and cultures to further adjust medication if needed Thank you for this consultation will follow this patient with you Time with Patient: Greater than 30
[2022-11-15] MEDS: CEFEPIME 1 GM in SODIUM CHLORIDE 0.9% 50 ML IVPB SCH ×3 (00:26→23:42)
[2022-11-15] MEDS ORDERED: EPINEPHrine 10 ML SYRINGE (0.1 MG/ML) ONE (04:38)
[2022-11-15] MEDS ORDERED: SODIUM BICARB 8.4% 50 ML VIAL (1 MEQ/ML) ONE (04:38)
[2022-11-15 05:01] LABS: Glucose,Whole Blood 210 mg/dL (70-110)
[2022-11-15] MEDS: SODIUM CHLORIDE 0.9% 1,000 ML IV SCH (05:15)
[2022-11-15] MEDS: NOREPINEPHRINE 4 MG in SODIUM CHLORIDE 0.9% 250 ML IV SCH ×5 (05:15→19:30)
--- NOTE | 2022-11-15 05:24 | P.EN ---
LUCHO SIFUENTES Arrived on Scene to find: Patient undergoing CPR with fecal vomits noted since 0438. Case discussed with the RN with chart reviewed. The patient who was admitted for fluid overload with ANNA was found by the patient's RN during routine rounds to be covered in fecal matter and appearing unresponsive. She was subsequently notified by the telemetry that patient had developed bradycardia. The patient subsequently lost her pulse and ACLS protocol was initiated. Arrived at the scene shortly after. Initial Rhythm: Junctional rhythm Code Course: Junctional rhythm with PEA. ACLS protocol performed with IVP Epinephrine x 5. IVP Sodium bicarb x 1 administered. Patient had ROSC at 0452. Intubated by JEWEL STAKER. Total Down Time: 14 minutes Vital signs reviewed General: [no distress], [appears at stated age] Cardiovascular: [S1S2 reg], [no murmur], [positive posterior tibial pulse bilateral], Lungs: Scattered ronchi and rales , [no accessory muscle use] Abdominal: [soft], [no appreciable organomegaly] Ext: [no gross muscle atrophy], [no edema], [no contractures] Neuro: Unable to assess Psych: Unable to assess Assessment: Cardiac arrest, suspect secondary to aspiration possibly due to bowel obstruction Plan: Patient transferred to MICU Initiated on Levophed infusion Patient's daughter "Denisha" was notified by the RN. The daughter had noted that the patient is a full code and that all life-saving measures be taken F/u laboratory evaluation Computed tomography scan abdomen and pelvis with and without contrast stat ordered Primary team notified by the MICU RN OG tube with intermittent suction place General surgery consulted Speed Operator notified by the MICU RN Disposition: Transferred to MICU Notified: As stated above A Total of 45 minutes of critical care time was spent on the complex care of this patient.
[2022-11-15] MEDS ORDERED: propofoL 0 ML IV ONE (05:29)
[2022-11-15] MEDS ORDERED: NALOXONE 0.4 MG/ML 1 ML VIAL IV PRN (05:46)
[2022-11-15 05:49] LABS: ABG Base Excess -18.3 mmol/L; ABG HCO3 13 mmol/L (21-25); ABG Oxygen Saturation 99.2 % (94-97); ABG PCO2 50 mmHg (35-45); ABG PO2 341 mmHg (83-108); ABG TCO2 14 mmol/L (19-24); Allen Test Performed? Yes
[2022-11-15 05:51] LABS: ABG PH 7.01 (7.35-7.45)
--- NOTE | 2022-11-15 05:59 | XR ---
EXAMINATION TYPE: XR chest 1V portable DATE OF EXAM: 11/15/2022 COMPARISON: 11/14/2022 HISTORY: Tube placement TECHNIQUE: Single view FINDINGS: There is endotracheal tube 1.8 cm from the fernando. There is nasogastric tube in the stomach . There are chest leads. There is some patchy pulmonary interstitial and airspace edema. IMPRESSION: There is pulmonary edema which is significantly increased compared to yesterday. Normal h eart.
--- NOTE | 2022-11-15 06:03 | XR ---
EXAMINATION TYPE: XR wrist limited RT DATE OF EXAM: 11/15/2022 COMPARISON: NONE HISTORY: Pain TECHNIQUE: Single view FINDINGS: There is old ununited fracture of the distal radius and ulna. There is ankylosis change inv olving all the carpal bones with osteo-sclerosis. There is metallic density consistent with previous surgery and portions of screws. 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 Ankylosis changes. Osteosclerosis. No acute bony abnormality.
[2022-11-15 06:08] LABS: HCT 33.8 % (34.0-46.0); HGB 10.5 gm/dL (11.4-16.0); Hypochromasia Marked; MCH 31.6 pg (25.0-35.0); MCV 101.8 fL (80.0-100.0); Macrocytosis Slight; Mean Platelet Volume 11.2; Platelet Count 182 k/uL (150-450); RBC 3.32 m/uL (3.80-5.40); RDW 14.8 % (11.5-15.5)
[2022-11-15 06:16] LABS: Albumin 3.3 g/dL (3.5-5.0); Calcium 7.6 mg/dL (8.4-10.2); Magnesium 2.6 mg/dL (1.6-2.3); Potassium 4.2 mmol/L (3.5-5.1); Total Bilirubin 0.9 mg/dL (0.2-1.3)
[2022-11-15] MEDS ORDERED: SODIUM BICARB 8.4% 50 ML SYR (1 MEQ/ML) IV STA ×5 (06:22→11:50)
[2022-11-15 06:37] LABS: Phosphorus 11.6 mg/dL (2.5-4.5)
[2022-11-15 06:42] LABS: Band Neutrophils % 4 %; Eosinophils # (M) 0.22 k/uL (0-0.7); Lymphocytes # (M) 2.46 k/uL (1.0-4.8); Metamyelocytes # (M) 0.34 k/uL (0); Metamyelocytes % 3 %; Monocytes # (M) 2.13 k/uL (0-1.0); Neutrophils % (M) 51 %; Nucleated Red Blood Cells 6 /100 WBC (0-0); Total Cells Counted 200; WBC 11.2 k/uL (3.8-10.6)
[2022-11-15 06:43] LABS: Poikilocytosis (M) Present
[2022-11-15 07:09] LABS: Appearance,Urine Cloudy (Clear); Bacteria,Urine Many /hpf; Bilirubin,Urine Negative (Negative); Blood,Urine Large (Negative); Budding Yeast,Urine Moderate /hpf; Color,Urine Yellow; Glucose,Urine (UA) Negative (Negative); Hyaline Casts,Urine 11 /lpf (0-2); Ketones,Urine Negative (Negative); Leukocyte Esterase,Urine Negative (Negative); Mucus,Urine Few /hpf; Nitrite,Urine Negative (Negative); Protein,Urine 2+ (Negative); RBC,Urine 7 /hpf (0-5); Specific Gravity,Urine 1.017 (1.001-1.035); Squamous Epithelial Cell,Urine 3 /hpf (0-4); Urobilinogen,Urine <2.0 mg/dL (<2.0); WBC,Urine 50 /hpf (0-5)
[2022-11-15] MEDS ORDERED: SODIUM CHLORIDE 0.9% 1,000 ML IV ONE ×5 (07:26→16:56)
[2022-11-15] MEDS: amLODIPine 10 MG TAB PO SCH (07:58)
[2022-11-15] MEDS: GABAPENTIN 100 MG CAP PO SCH (07:58)
--- NOTE | 2022-11-15 09:38 | P.PN ---
Subjective Progress Note Date: 11/15/22 PROGRESS NOTE The patient is a 72-year-old female who presented with symptoms of progressive dyspnea, was febrile with elevated pro-calcitonin and possible aspiration pneumonia. Her echocardiogram showed a normal systolic function. She has a history of chronic kidney disease. Yesterday she was found to be unresponsive with junctional rhythm had PE, was intubated. She is transferred to the ICU remains intubated and sedated. Her urinary output is poor. She continues to be in sinus mechanism. She is on levo fed. There is possible aspiration yesterday. She had no evidence of ventricular ectopic activity. She is acidotic and there is worsening of her renal function. Her troponin is normal. Medications: Amlodipine 10 mg daily, Lipitor 10 mg daily, levothyroxine, norepinephrine PHYSICAL EXAMINATION: Blood pressure 106/50 heart rate 109, intubated LUNGS: Decreased breath sounds bilaterally HEART: Regular rate and rhythm, S1, S2. No S3. systolic ejection murmur ABDOMEN: Soft, nontender, no organomegaly EXTREMETIES: No edema LAB: Hemoglobin 10.5, white blood cell 11.2, pH 7.01, potassium 4.2, BUN 75, creatinine 2.73. Troponin less than 0.012. AST 371. Plasma lactic acid 9 IMPRESSION: 1. Respiratory arrest with possible aspiration pneumonia 2. Worsening chronic kidney disease 3. Acidosis 4. History of COPD 5. History of hyperlipidemia PLAN: 1. Antibiotics treatment for possible aspiration pneumonia 2. ICU consultation 3. Continue supportive care 4. Prognosis is guarded Objective - Vital Signs Vital signs: Vital Signs Temp 97.8 F 11/15/22 08:00 Pulse 108 H 11/15/22 09:00 Resp 28 H 11/15/22 09:00 BP 96/51 11/15/22 09:00 Pulse Ox 95 11/15/22 09:00 FiO2 60 11/15/22 09:19 Intake & Output 11/14/22 11/15/22 11/15/22 18:59 06:59 18:59 Intake Total 507 688 1756 Output Total 530 561 Balance 840 -352 609 Weight 81 kg Intake: IV 60 1170 Invasive Line 4 10 Sodium Chloride 0.9% 1, 60 160 000 ml @ 50 mls/hr IV . Q20H [facility] Rx#:[id number] Sodium Chloride 0.9% 1, 1000 000 ml @ 999 mls/hr IV . Q1H1M ONE Rx#:[id number] Intake, IV Titration 600 Amount ACETAMINOPHEN IV (For NPO 400 ) 1,000 mg In Empty Bag 1 bag @ 400 mls/hr IVPB ONCE ONE Rx#:[id number] Cefepime 1 gm In Sodium 50 Chloride 0.9% 50 ml @ 12. 5 mls/hr IVPB Q12H [facility] Rx #:[id number] Sodium Chloride 0.9% 1, 150 000 ml @ 50 mls/hr IV . Q20H [facility] Rx#:[id number] Oral 240 118 0 Output: Gastric Drainage 500 Urine 530 60 Straight 500 Stool 1 Other: Voiding Method External Catheter Indwelling Catheter # Voids 0 # Bowel Movements 0 - Labs CBC & Chem 7: 11/15/22 05:31 11/15/22 05:31 Labs: Abnormal Lab Results - Last 24 Hours (Table) 11/14/22 11/14/22 11/15/22 Range/Units 10:03 10:03 04:59 WBC (3.8-10.6) k/uL RBC (3.80-5.40) m/uL Hgb (11.4-16.0) gm/dL Hct (34.0-46.0) % MCV (80.0-100.0) fL Monocytes # (Manual) (0-1.0) k/uL Metamyelocytes # (Man) (0) k/uL Nucleated RBCs (0-0) /100 WBC ABG pH (7.35-7.45) ABG pCO2 (35-45) mmHg ABG pO2 (83-108) mmHg ABG HCO3 (21-25) mmol/L ABG Total CO2 (19-24) mmol/L ABG O2 Saturation (94-97) % Carbon Dioxide (22-30) mmol/L BUN (7-17) mg/dL Creatinine (0.52-1.04) mg/dL Glucose (74-99) mg/dL POC Glucose (mg/dL) 210 H (70-110) mg/dL Plasma Lactic Acid Brennan (0.7-2.0) mmol/L Calcium (8.4-10.2) mg/dL Phosphorus (2.5-4.5) mg/dL Magnesium (1.6-2.3) mg/dL AST (14-36) U/L ALT (4-34) U/L C-Reactive Protein 23.6 H (<1.0) mg/dL Total Protein (6.3-8.2) g/dL Albumin (3.5-5.0) g/dL Procalcitonin 0.62 H (0.02-0.09) ng/mL Urine Appearance (Clear) Urine Protein (Negative) Urine Blood (Negative) Urine RBC (0-5) /hpf Urine WBC (0-5) /hpf Urine WBC Clumps (None) /hpf Urine Bacteria (None) /hpf Hyaline Casts (0-2) /lpf Urine Mucus (None) /hpf Urine Yeast (Budding) (None) /hpf 11/15/22 11/15/22 11/15/22 Range/Units 05:31 05:31 05:31 WBC 11.2 H (3.8-10.6) k/uL RBC 3.32 L (3.80-5.40) m/uL Hgb 10.5 L (11.4-16.0) gm/dL Hct 33.8 L (34.0-46.0) % MCV 101.8 H D (80.0-100.0) fL Monocytes # (Manual) 2.13 H (0-1.0) k/uL Metamyelocytes # (Man) 0.34 H (0) k/uL Nucleated RBCs 6 H (0-0) /100 WBC ABG pH (7.35-7.45) ABG pCO2 (35-45) mmHg ABG pO2 (83-108) mmHg ABG HCO3 (21-25) mmol/L ABG Total CO2 (19-24) mmol/L ABG O2 Saturation (94-97) % Carbon Dioxide 12 L (22-30) mmol/L BUN 75 H (7-17) mg/dL Creatinine 2.73 H (0.52-1.04) mg/dL Glucose 195 H (74-99) mg/dL POC Glucose (mg/dL) (70-110) mg/dL Plasma Lactic Acid Brennan 9.0 H* (0.7-2.0) mmol/L Calcium 7.6 L (8.4-10.2) mg/dL Phosphorus 11.6 H* (2.5-4.5) mg/dL Magnesium 2.6 H (1.6-2.3) mg/dL AST 371 H (14-36) U/L ALT 124 H (4-34) U/L C-Reactive Protein (<1.0) mg/dL Total Protein 6.0 L (6.3-8.2) g/dL Albumin 3.3 L (3.5-5.0) g/dL Procalcitonin (0.02-0.09) ng/mL Urine Appearance (Clear) Urine Protein (Negative) Urine Blood (Negative) Urine RBC (0-5) /hpf Urine WBC (0-5) /hpf Urine WBC Clumps (None) /hpf Urine Bacteria (None) /hpf Hyaline Casts (0-2) /lpf Urine Mucus (None) /hpf Urine Yeast (Budding) (None) /hpf 11/15/22 11/15/22 Range/Units 05:47 06:48 WBC (3.8-10.6) k/uL RBC (3.80-5.40) m/uL Hgb (11.4-16.0) gm/dL Hct (34.0-46.0) % MCV (80.0-100.0) fL Monocytes # (Manual) (0-1.0) k/uL Metamyelocytes # (Man) (0) k/uL Nucleated RBCs (0-0) /100 WBC ABG pH 7.01 L* (7.35-7.45) ABG pCO2 50 H (35-45) mmHg ABG pO2 341 H (83-108) mmHg ABG HCO3 13 L (21-25) mmol/L ABG Total CO2 14 L (19-24) mmol/L ABG O2 Saturation 99.2 H (94-97) % Carbon Dioxide (22-30) mmol/L BUN (7-17) mg/dL Creatinine (0.52-1.04) mg/dL Glucose (74-99) mg/dL POC Glucose (mg/dL) (70-110) mg/dL Plasma Lactic Acid Brennan (0.7-2.0) mmol/L Calcium (8.4-10.2) mg/dL Phosphorus (2.5-4.5) mg/dL Magnesium (1.6-2.3) mg/dL AST (14-36) U/L ALT (4-34) U/L C-Reactive Protein (<1.0) mg/dL Total Protein (6.3-8.2) g/dL Albumin (3.5-5.0) g/dL Procalcitonin (0.02-0.09) ng/mL Urine Appearance Cloudy H (Clear) Urine Protein 2+ H (Negative) Urine Blood Large H (Negative) Urine RBC 7 H (0-5) /hpf Urine WBC 50 H (0-5) /hpf Urine WBC Clumps Moderate H (None) /hpf Urine Bacteria Many H (None) /hpf Hyaline Casts 11 H (0-2) /lpf Urine Mucus Few H (None) /hpf Urine Yeast (Budding) Moderate H (None) /hpf
[2022-11-15] MEDS: SERTRALINE 100 MG TAB PO SCH (10:31)
[2022-11-15] MEDS: SODIUM BICARBONATE TAB 650 MG TAB PO SCH (10:31)
[2022-11-15] MEDS: LEVOTHYROXINE 125 MCG TAB PO SCH (10:31)
[2022-11-15] MEDS: ATORVASTATIN 10 MG TAB PO SCH (10:31)
--- NOTE | 2022-11-15 10:47 | P.PN ---
Subjective Patient is seen for follow-up for acute kidney injury secondary to NSAIDs. Patient has underlying chronic hypoxic respiratory failure She was admitted to the hospital with increased weakness and shortness of breath. Chest x-ray shows diffuse bilateral infiltrates suggesting possible interstitial edema. Patient was diuresed on initial admission. She had about 1.6 L of urine documented for last 24 hours. Serum creatinine increased to 2.6 mg/dL yesterday. Patient had urine retention with post void to scan showing 500 mL. Blood pressure has not been low. This morning patient was noted to have significant fecal emesis. She also had severe bradycardia and became pulseless. Code was run for about 15 minutes. There is concern for aspiration of the fecal emesis. Patient is currently intubated. She is hypotensive and maintained on levo fed. Urine output is down to about 5 mL per hour Objective - Vital Signs Vital signs: Vital Signs Temp 97.8 F 11/15/22 08:00 Pulse 108 H 11/15/22 09:00 Resp 28 H 11/15/22 09:00 BP 96/51 11/15/22 09:00 Pulse Ox 95 11/15/22 09:00 FiO2 60 11/15/22 09:19 Intake & Output 11/14/22 11/15/22 11/15/22 18:59 06:59 18:59 Intake Total 275 956 3859 Output Total 530 561 Balance 840 -352 609 Weight 81 kg Intake: IV 60 1170 Invasive Line 4 10 Sodium Chloride 0.9% 1, 60 160 000 ml @ 50 mls/hr IV . Q20H [facility] Rx#:[id number] Sodium Chloride 0.9% 1, 1000 000 ml @ 999 mls/hr IV . Q1H1M ONE Rx#:[id number] Intake, IV Titration 600 Amount ACETAMINOPHEN IV (For NPO 400 ) 1,000 mg In Empty Bag 1 bag @ 400 mls/hr IVPB ONCE ONE Rx#:[id number] Cefepime 1 gm In Sodium 50 Chloride 0.9% 50 ml @ 12. 5 mls/hr IVPB Q12H [facility] Rx #:[id number] Sodium Chloride 0.9% 1, 150 000 ml @ 50 mls/hr IV . Q20H [facility] Rx#:[id number] Oral 240 118 0 Output: Gastric Drainage 500 Urine 530 60 Straight 500 Stool 1 Other: Voiding Method External Catheter Indwelling Catheter # Voids 0 # Bowel Movements 0 - Exam Sedated and on the vent Examination of the heart S1 and S2 Examination lungs decreased breath sounds at the bases Abdomen is soft obese Examination lower extremities shows no evidence of edema ACUPUNCTURIST exam cannot be assessed - Labs CBC & Chem 7: 11/15/22 05:31 12 05:31 Labs: Abnormal Lab Results - Last 24 Hours (Table) 11/14/22 11/14/22 11/15/22 Range/Units 10:03 10:03 04:59 WBC (3.8-10.6) k/uL RBC (3.80-5.40) m/uL Hgb (11.4-16.0) gm/dL Hct (34.0-46.0) % MCV (80.0-100.0) fL Monocytes # (Manual) (0-1.0) k/uL Metamyelocytes # (Man) (0) k/uL Nucleated RBCs (0-0) /100 WBC ABG pH (7.35-7.45) ABG pCO2 (35-45) mmHg ABG pO2 (83-108) mmHg ABG HCO3 (21-25) mmol/L ABG Total CO2 (19-24) mmol/L ABG O2 Saturation (94-97) % Carbon Dioxide (22-30) mmol/L BUN (7-17) mg/dL Creatinine (0.52-1.04) mg/dL Glucose (74-99) mg/dL POC Glucose (mg/dL) 210 H (70-110) mg/dL Plasma Lactic Acid Brennan (0.7-2.0) mmol/L Calcium (8.4-10.2) mg/dL Phosphorus (2.5-4.5) mg/dL Magnesium (1.6-2.3) mg/dL AST (14-36) U/L ALT (4-34) U/L C-Reactive Protein 23.6 H (<1.0) mg/dL Total Protein (6.3-8.2) g/dL Albumin (3.5-5.0) g/dL Procalcitonin 0.62 H (0.02-0.09) ng/mL Urine Appearance (Clear) Urine Protein (Negative) Urine Blood (Negative) Urine RBC (0-5) /hpf Urine WBC (0-5) /hpf Urine WBC Clumps (None) /hpf Urine Bacteria (None) /hpf Hyaline Casts (0-2) /lpf Urine Mucus (None) /hpf Urine Yeast (Budding) (None) /hpf 11/15/22 11/15/22 11/15/22 Range/Units 05:31 05:31 05:31 WBC 11.2 H (3.8-10.6) k/uL RBC 3.32 L (3.80-5.40) m/uL Hgb 10.5 L (11.4-16.0) gm/dL Hct 33.8 L (34.0-46.0) % MCV 101.8 H D (80.0-100.0) fL Monocytes # (Manual) 2.13 H (0-1.0) k/uL Metamyelocytes # (Man) 0.34 H (0) k/uL Nucleated RBCs 6 H (0-0) /100 WBC ABG pH (7.35-7.45) ABG pCO2 (35-45) mmHg ABG pO2 (83-108) mmHg ABG HCO3 (21-25) mmol/L ABG Total CO2 (19-24) mmol/L ABG O2 Saturation (94-97) % Carbon Dioxide 12 L (22-30) mmol/L BUN 75 H (7-17) mg/dL Creatinine 2.73 H (0.52-1.04) mg/dL Glucose 195 H (74-99) mg/dL POC Glucose (mg/dL) (70-110) mg/dL Plasma Lactic Acid Brennan 9.0 H* (0.7-2.0) mmol/L Calcium 7.6 L (8.4-10.2) mg/dL Phosphorus 11.6 H* (2.5-4.5) mg/dL Magnesium 2.6 H (1.6-2.3) mg/dL AST 371 H (14-36) U/L ALT 124 H (4-34) U/L C-Reactive Protein (<1.0) mg/dL Total Protein 6.0 L (6.3-8.2) g/dL Albumin 3.3 L (3.5-5.0) g/dL Procalcitonin (0.02-0.09) ng/mL Urine Appearance (Clear) Urine Protein (Negative) Urine Blood (Negative) Urine RBC (0-5) /hpf Urine WBC (0-5) /hpf Urine WBC Clumps (None) /hpf Urine Bacteria (None) /hpf Hyaline Casts (0-2) /lpf Urine Mucus (None) /hpf Urine Yeast (Budding) (None) /hpf 11/15/22 11/15/22 Range/Units 05:47 06:48 WBC (3.8-10.6) k/uL RBC (3.80-5.40) m/uL Hgb (11.4-16.0) gm/dL Hct (34.0-46.0) % MCV (80.0-100.0) fL Monocytes # (Manual) (0-1.0) k/uL Metamyelocytes # (Man) (0) k/uL Nucleated RBCs (0-0) /100 WBC ABG pH 7.01 L* (7.35-7.45) ABG pCO2 50 H (35-45) mmHg ABG pO2 341 H (83-108) mmHg ABG HCO3 13 L (21-25) mmol/L ABG Total CO2 14 L (19-24) mmol/L ABG O2 Saturation 99.2 H (94-97) % Carbon Dioxide (22-30) mmol/L BUN (7-17) mg/dL Creatinine (0.52-1.04) mg/dL Glucose (74-99) mg/dL POC Glucose (mg/dL) (70-110) mg/dL Plasma Lactic Acid Brennan (0.7-2.0) mmol/L Calcium (8.4-10.2) mg/dL Phosphorus (2.5-4.5) mg/dL Magnesium (1.6-2.3) mg/dL AST (14-36) U/L ALT (4-34) U/L C-Reactive Protein (<1.0) mg/dL Total Protein (6.3-8.2) g/dL Albumin (3.5-5.0) g/dL Procalcitonin (0.02-0.09) ng/mL Urine Appearance Cloudy H (Clear) Urine Protein 2+ H (Negative) Urine Blood Large H (Negative) Urine RBC 7 H (0-5) /hpf Urine WBC 50 H (0-5) /hpf Urine WBC Clumps Moderate H (None) /hpf Urine Bacteria Many H (None) /hpf Hyaline Casts 11 H (0-2) /lpf Urine Mucus Few H (None) /hpf Urine Yeast (Budding) Moderate H (None) /hpf Assessment and Plan Assessment: 1. Acute kidney injury secondary to NSAIDs and sepsis. Worsened postcardiac arrest currently oliguric. Serum creatinine had improved but worsened again today. UA shows trace protein and small blood. Previous creatinine 0.6 on 02/11/2022. 2. Volume overload on initial admission, improved 3. Acute on top of chronic hypoxic respiratory failure associated with possible pneumonia and possible exacerbation of COPD. Chest x-ray shows bilateral interstitial infiltrates/edema. Status post diuresis on initial admission. 4. Chronic hypoxic respiratory failure from COPD 5. Metabolic acidosis with lactic acidosis status post cardiac arrest 6. Status post cardiac arrest 7. Aspiration pneumonia 8. Sepsis, abdominal source possible underlying bowel obstruction as patient had fecal emesis. Abdominal imaging has been ordered Plan: Repeat IV fluid bolus Start IV bicarb Abdominal imaging Consider surgical consult based on findings on abdominal imaging.
[2022-11-15] MEDS ORDERED: DEXTROSE 5% IN WATER 1,000 ML with SODIUM BICARB (1 MEQ/ML) 150 ML IV ONE (11:00)
--- NOTE | 2022-11-15 11:02 | P.PN ---
Subjective Progress Note Date: 11/15/22 Principal diagnosis: Sepsis and aspiration pneumonia Patient is a 72-year-old female with a past medical history significant for COPD who was brought into the hospital 2 days ago on 11/12/2022 for evaluation of increasing shortness of breath that apparently was getting worse for 2 days before presentation hospital patient was complaining of getting exhausted, patient subsequently had did have a episode of vomiting yesterday morning he did have a fever with concern for aspiration pneumonia patient was started on cefepime patient did have significant worsening of her clinical condition and did have a cardiac arrest morning of 11/15/2022 patient was noticed to be covered in stool patient was resistant intubated and has been transferred to the ICU. on today's evaluation that is 11/15/2022, the patient remains to be afebrile, patient is currently on low-dose Levophed to support her blood pressure per the nursing staff no significant purulent secretions through the ET has been reported no further vomiting or any diarrhea Objective - Vital Signs Vital signs: Vital Signs Temp 97.8 F 11/15/22 08:00 Pulse 108 H 11/15/22 09:00 Resp 28 H 11/15/22 09:00 BP 96/51 11/15/22 09:00 Pulse Ox 95 11/15/22 09:00 FiO2 60 11/15/22 09:19 Intake & Output 11/14/22 11/15/22 11/15/22 18:59 06:59 18:59 Intake Total 019 373 3088 Output Total 530 561 Balance 840 -352 609 Weight 81 kg Intake: IV 60 1170 Invasive Line 4 10 Sodium Chloride 0.9% 1, 60 160 000 ml @ 50 mls/hr IV . Q20H [facility] Rx#:[id number] Sodium Chloride 0.9% 1, 1000 000 ml @ 999 mls/hr IV . Q1H1M ONE Rx#:[id number] Intake, IV Titration 600 Amount ACETAMINOPHEN IV (For NPO 400 ) 1,000 mg In Empty Bag 1 bag @ 400 mls/hr IVPB ONCE [facility] Rx#:[id number] Cefepime 1 gm In Sodium 50 Chloride 0.9% 50 ml @ 12. 5 mls/hr IVPB Q12H [facility] Rx #:[id number] Sodium Chloride 0.9% 1, 150 000 ml @ 50 mls/hr IV . Q20H [facility] Rx#:[id number] Oral 240 118 0 Output: Gastric Drainage 500 Urine 530 60 Straight 500 Stool 1 Other: Voiding Method External Catheter Indwelling Catheter # Voids 0 # Bowel Movements 0 - Exam GENERAL DESCRIPTION: An elderly female lying in bed in no distress RESPIRATORY SYSTEM: Unlabored breathing , decreased breath sounds at bases HEART: S1 S2 regular rate and rhythm , ABDOMEN: Soft , mild distention but no tenderness, patient did not have any distention or tenderness on examination of her abdomen yesterday and this was confirmed with the daughter today who was present at the time for evaluation yesterday EXTREMITIES: No edema feet - Labs CBC & Chem 7: 11/15/22 05:31 11/15/22 05:31 Labs: Abnormal Lab Results - Last 24 Hours (Table) 11/14/22 11/14/22 11/15/22 Range/Units 10:03 10:03 04:59 WBC (3.8-10.6) k/uL RBC (3.80-5.40) m/uL Hgb (11.4-16.0) gm/dL Hct (34.0-46.0) % MCV (80.0-100.0) fL Monocytes # (Manual) (0-1.0) k/uL Metamyelocytes # (Man) (0) k/uL Nucleated RBCs (0-0) /100 WBC ABG pH (7.35-7.45) ABG pCO2 (35-45) mmHg ABG pO2 (83-108) mmHg ABG HCO3 (21-25) mmol/L ABG Total CO2 (19-24) mmol/L ABG O2 Saturation (94-97) % Carbon Dioxide (22-30) mmol/L BUN (7-17) mg/dL Creatinine (0.52-1.04) mg/dL Glucose (74-99) mg/dL POC Glucose (mg/dL) 210 H (70-110) mg/dL Plasma Lactic Acid Brennan (0.7-2.0) mmol/L Calcium (8.4-10.2) mg/dL Phosphorus (2.5-4.5) mg/dL Magnesium (1.6-2.3) mg/dL AST (14-36) U/L ALT (4-34) U/L C-Reactive Protein 23.6 H (<1.0) mg/dL Total Protein (6.3-8.2) g/dL Albumin (3.5-5.0) g/dL Procalcitonin 0.62 H (0.02-0.09) ng/mL Urine Appearance (Clear) Urine Protein (Negative) Urine Blood (Negative) Urine RBC (0-5) /hpf Urine WBC (0-5) /hpf Urine WBC Clumps (None) /hpf Urine Bacteria (None) /hpf Hyaline Casts (0-2) /lpf Urine Mucus (None) /hpf Urine Yeast (Budding) (None) /hpf 11/15/22 11/15/22 11/15/22 Range/Units 05:31 05:31 05:31 WBC 11.2 H (3.8-10.6) k/uL RBC 3.32 L (3.80-5.40) m/uL Hgb 10.5 L (11.4-16.0) gm/dL Hct 33.8 L (34.0-46.0) % MCV 101.8 H D (80.0-100.0) fL Monocytes # (Manual) 2.13 H (0-1.0) k/uL Metamyelocytes # (Man) 0.34 H (0) k/uL Nucleated RBCs 6 H (0-0) /100 WBC ABG pH (7.35-7.45) ABG pCO2 (35-45) mmHg ABG pO2 (83-108) mmHg ABG HCO3 (21-25) mmol/L ABG Total CO2 (19-24) mmol/L ABG O2 Saturation (94-97) % Carbon Dioxide 12 L (22-30) mmol/L BUN 75 H (7-17) mg/dL Creatinine 2.73 H (0.52-1.04) mg/dL Glucose 195 H (74-99) mg/dL POC Glucose (mg/dL) (70-110) mg/dL Plasma Lactic Acid Brennan 9.0 H* (0.7-2.0) mmol/L Calcium 7.6 L (8.4-10.2) mg/dL Phosphorus 11.6 H* (2.5-4.5) mg/dL Magnesium 2.6 H (1.6-2.3) mg/dL AST 371 H (14-36) U/L ALT 124 H (4-34) U/L C-Reactive Protein (<1.0) mg/dL Total Protein 6.0 L (6.3-8.2) g/dL Albumin 3.3 L (3.5-5.0) g/dL Procalcitonin (0.02-0.09) ng/mL Urine Appearance (Clear) Urine Protein (Negative) Urine Blood (Negative) Urine RBC (0-5) /hpf Urine WBC (0-5) /hpf Urine WBC Clumps (None) /hpf Urine Bacteria (None) /hpf Hyaline Casts (0-2) /lpf Urine Mucus (None) /hpf Urine Yeast (Budding) (None) /hpf 11/15/22 11/15/22 Range/Units 05:47 06:48 WBC (3.8-10.6) k/uL RBC (3.80-5.40) m/uL Hgb (11.4-16.0) gm/dL Hct (34.0-46.0) % MCV (80.0-100.0) fL Monocytes # (Manual) (0-1.0) k/uL Metamyelocytes # (Man) (0) k/uL Nucleated RBCs (0-0) /100 WBC ABG pH 7.01 L* (7.35-7.45) ABG pCO2 50 H (35-45) mmHg ABG pO2 341 H (83-108) mmHg ABG HCO3 13 L (21-25) mmol/L ABG Total CO2 14 L (19-24) mmol/L ABG O2 Saturation 99.2 H (94-97) % Carbon Dioxide (22-30) mmol/L BUN (7-17) mg/dL Creatinine (0.52-1.04) mg/dL Glucose (74-99) mg/dL POC Glucose (mg/dL) (70-110) mg/dL Plasma Lactic Acid Brennan (0.7-2.0) mmol/L Calcium (8.4-10.2) mg/dL Phosphorus (2.5-4.5) mg/dL Magnesium (1.6-2.3) mg/dL AST (14-36) U/L ALT (4-34) U/L C-Reactive Protein (<1.0) mg/dL Total Protein (6.3-8.2) g/dL Albumin (3.5-5.0) g/dL Procalcitonin (0.02-0.09) ng/mL Urine Appearance Cloudy H (Clear) Urine Protein 2+ H (Negative) Urine Blood Large H (Negative) Urine RBC 7 H (0-5) /hpf Urine WBC 50 H (0-5) /hpf Urine WBC Clumps Moderate H (None) /hpf Urine Bacteria Many H (None) /hpf Hyaline Casts 11 H (0-2) /lpf Urine Mucus Few H (None) /hpf Urine Yeast (Budding) Moderate H (None) /hpf Assessment and Plan (1) Fever Current Visit: Yes Status: Acute Code(s): R50.9 - FEVER, UNSPECIFIED SNOMED Code(s): 241397464 Plan: 1patient with an episode of fever in this patient admitted to the hospital with increasing shortness of breath she did have an episode of vomiting 2 this morning now with worsening shortness of breath and fever concerning for possible aspiration pneumonitis, patient did have abdominal distention on examination, see the abdominal pelvis has been ordered currently pending 2patient with a penicillin ALLERGY that would limit the number of antibiotic safe to use 3-to obtain sputum for gram stain and culture 4continue cefepime will add Flagyl Family the bedside and multiple questions concerned were answered in Layman terms Time with Patient: Greater than 30
--- NOTE | 2022-11-15 11:06 | P.GSCN ---
History of Present Illness Consult date: 11/15/22 Reason for Consult: Abdominal pain History of present illness: 72-year-old female came to the hospital with shortness of breath. Patient found to be hypoxic. Treated for pulmonary edema. Yesterday the patient had episodes of emesis. Per the family she was having intermittent diarrhea and some abdominal discomfort over the last several months. She has a history of C. diff colitis. She had a previous CAT scan in January showing colon wall thickening and gallbladder distention. Apparently the patient coded overnight. There was possibility of aspiration event and foul smelling emesis was identified by nursing staff. She has had a moderate amount through the nasogastric tube since she's been in the ICU. She is on Levophed and significantly acidotic. She was seen by infectious disease yesterday after having a fever of 100.3. She had no abdominal pain on their evaluation and had no tenderness on exam. Review of Systems ROS unobtainable: due to endotracheal tube Past Medical History Past Medical History: Cancer, COPD, Fibromyalgia, Osteoarthritis (OA), Pneumonia, Rheumatoid Arthritis (RA) Additional Past Medical History / Comment(s): Pt tested covid + 03/07/21 [facility] ER. 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 L hand and ulcer on L wrist History of Any Multi-Drug Resistant Organisms: None Reported Year Discovered:: 01/30/22 MDRO Source:: stool Past Surgical History: Back Surgery, Hysterectomy, Joint Replacement, Orthopedic Surgery Additional Past Surgical History / Comment(s): L partial nephrectomy, R wrist surgery for fracture, 3 L spine surgeries, 2 cervical surgeries, L hemiarthroplasty d/t fracture, colonoscopy Past Anesthesia/Blood Transfusion Reactions: No Reported Reaction Past Psychological History: Depression Smoking Status: Former smoker Past Alcohol Use History: None Reported, Occasional Past Drug Use History: None Reported - Past Family History Father Family Medical History: Cancer Additional Family Medical History / Comment(s): LUNG CA Mother Family Medical History: Osteoarthritis (OA) Medications and Allergies Home Medications Medication Instructions Recorded Confirmed Type Raloxifene [Evista] 60 mg PO DAILY 02/07/15 11/12/22 History Sertraline HCl [Zoloft] 100 mg PO BID 02/07/15 11/12/22 History risperiDONE [RisperDAL] 2 mg PO HS 04/05/15 11/12/22 History busPIRone HCl [Buspar] 10 mg PO BID PRN 01/14/20 11/12/22 History traZODone HCL 100 mg PO HS 01/14/20 11/12/22 History Naproxen 500 mg PO BID PRN 03/07/21 11/12/22 History Dicyclomine HCl 10 - 20 mg PO QID PRN 12/16/21 11/12/22 History Ergocalciferol (Vitamin D2) 1,250 mcg PO Q7D 12/16/21 11/12/22 History [Drisdol (50,000 Iu)] amLODIPine [Norvasc] 10 mg PO DAILY #90 tab 12/20/21 11/12/22 Rx oxyCODONE-APAP 7.5-325MG [Percocet 1 tab PO Q6H PRN #12 tab 12/24/21 11/12/22 Rx 7.5-325 mg] Albuterol Sulfate [Ventolin HFA] 2 puff INHALATION RT-Q6H PRN 01/30/22 11/12/22 History Acetaminophen Tab [Tylenol] 650 mg PO Q6H PRN 03/07/22 11/12/22 History Aspirin EC [Ecotrin Low Dose] 81 mg PO DAILY 11/12/22 11/12/22 History Atorvastatin [Lipitor] 10 mg PO DAILY 11/12/22 11/12/22 History Budesonide/Formoterol Fumarate 1 puff INHALATION RT-BID 11/12/22 11/12/22 History [Symbicort 160-4.5 Mcg Inhaler] Gabapentin 800 mg PO TID 11/12/22 11/12/22 History Levothyroxine Sodium 125 mcg PO DAILY 11/12/22 11/12/22 History Meclizine [Antivert] 12.5 mg PO BID PRN 11/12/22 11/12/22 History Pantoprazole [Protonix] 40 mg PO DAILY 11/12/22 11/12/22 History Allergies Allergy/AdvReac Type Severity Reaction Status Date / Time Penicillins Allergy Dyspnea Verified 11/12/22 16:16 aspirin AdvReac Nausea & Verified 11/12/22 16:16 Vomiting morphine AdvReac Hallucinati Verified 11/12/22 16:16 ons Surgical - Exam Vital Signs Temp Pulse Resp BP Pulse Ox 98.9 F 112 H 24 126/70 98 11/12/22 14:33 11/12/22 14:33 11/12/22 14:33 11/12/22 14:33 11/12/22 14:33 Physical exam: General: Well-developed, well-nourished HEENT: Normocephalic, sclerae nonicteric Abdomen: Distended, no tenderness appreciated Extremities: Mild edema Neuro: On the ventilator Results - Labs 11/15/22 05:31 11/15/22 05:31 Abnormal Lab Results - Last 24 Hours (Table) 11/14/22 11/15/22 11/15/22 Range/Units 10:03 04:59 05:31 WBC (3.8-10.6) k/uL RBC (3.80-5.40) m/uL Hgb (11.4-16.0) gm/dL Hct (34.0-46.0) % MCV (80.0-100.0) fL Monocytes # (Manual) (0-1.0) k/uL Metamyelocytes # (Man) (0) k/uL Nucleated RBCs (0-0) /100 WBC ABG pH (7.35-7.45) ABG pCO2 (35-45) mmHg ABG pO2 (83-108) mmHg ABG HCO3 (21-25) mmol/L ABG Total CO2 (19-24) mmol/L ABG O2 Saturation (94-97) % Carbon Dioxide 12 L (22-30) mmol/L BUN 75 H (7-17) mg/dL Creatinine 2.73 H (0.52-1.04) mg/dL Glucose 195 H (74-99) mg/dL POC Glucose (mg/dL) 210 H (70-110) mg/dL Plasma Lactic Acid Brennan (0.7-2.0) mmol/L Calcium 7.6 L (8.4-10.2) mg/dL Phosphorus 11.6 H* (2.5-4.5) mg/dL Magnesium 2.6 H (1.6-2.3) mg/dL AST 371 H (14-36) U/L ALT 124 H (4-34) U/L Total Protein 6.0 L (6.3-8.2) g/dL Albumin 3.3 L (3.5-5.0) g/dL Procalcitonin 0.62 H (0.02-0.09) ng/mL Urine Appearance (Clear) Urine Protein (Negative) Urine Blood (Negative) Urine RBC (0-5) /hpf Urine WBC (0-5) /hpf Urine WBC Clumps (None) /hpf Urine Bacteria (None) /hpf Hyaline Casts (0-2) /lpf Urine Mucus (None) /hpf Urine Yeast (Budding) (None) /hpf 11/15/22 11/15/22 11/15/22 Range/Units 05:31 05:31 05:47 WBC 11.2 H (3.8-10.6) k/uL RBC 3.32 L (3.80-5.40) m/uL Hgb 10.5 L (11.4-16.0) gm/dL Hct 33.8 L (34.0-46.0) % MCV 101.8 H D (80.0-100.0) fL Monocytes # (Manual) 2.13 H (0-1.0) k/uL Metamyelocytes # (Man) 0.34 H (0) k/uL Nucleated RBCs 6 H (0-0) /100 WBC ABG pH 7.01 L* (7.35-7.45) ABG pCO2 50 H (35-45) mmHg ABG pO2 341 H (83-108) mmHg ABG HCO3 13 L (21-25) mmol/L ABG Total CO2 14 L (19-24) mmol/L ABG O2 Saturation 99.2 H (94-97) % Carbon Dioxide (22-30) mmol/L BUN (7-17) mg/dL Creatinine (0.52-1.04) mg/dL Glucose (74-99) mg/dL POC Glucose (mg/dL) (70-110) mg/dL Plasma Lactic Acid Brennan 9.0 H* (0.7-2.0) mmol/L Calcium (8.4-10.2) mg/dL Phosphorus (2.5-4.5) mg/dL Magnesium (1.6-2.3) mg/dL AST (14-36) U/L ALT (4-34) U/L Total Protein (6.3-8.2) g/dL Albumin (3.5-5.0) g/dL Procalcitonin (0.02-0.09) ng/mL Urine Appearance (Clear) Urine Protein (Negative) Urine Blood (Negative) Urine RBC (0-5) /hpf Urine WBC (0-5) /hpf Urine WBC Clumps (None) /hpf Urine Bacteria (None) /hpf Hyaline Casts (0-2) /lpf Urine Mucus (None) /hpf Urine Yeast (Budding) (None) /hpf 11/15/22 Range/Units 06:48 WBC (3.8-10.6) k/uL RBC (3.80-5.40) m/uL Hgb (11.4-16.0) gm/dL Hct (34.0-46.0) % MCV (80.0-100.0) fL Monocytes # (Manual) (0-1.0) k/uL Metamyelocytes # (Man) (0) k/uL Nucleated RBCs (0-0) /100 WBC ABG pH (7.35-7.45) ABG pCO2 (35-45) mmHg ABG pO2 (83-108) mmHg ABG HCO3 (21-25) mmol/L ABG Total CO2 (19-24) mmol/L ABG O2 Saturation (94-97) % Carbon Dioxide (22-30) mmol/L BUN (7-17) mg/dL Creatinine (0.52-1.04) mg/dL Glucose (74-99) mg/dL POC Glucose (mg/dL) (70-110) mg/dL Plasma Lactic Acid Brennan (0.7-2.0) mmol/L Calcium (8.4-10.2) mg/dL Phosphorus (2.5-4.5) mg/dL Magnesium (1.6-2.3) mg/dL AST (14-36) U/L ALT (4-34) U/L Total Protein (6.3-8.2) g/dL Albumin (3.5-5.0) g/dL Procalcitonin (0.02-0.09) ng/mL Urine Appearance Cloudy H (Clear) Urine Protein 2+ H (Negative) Urine Blood Large H (Negative) Urine RBC 7 H (0-5) /hpf Urine WBC 50 H (0-5) /hpf Urine WBC Clumps Moderate H (None) /hpf Urine Bacteria Many H (None) /hpf Hyaline Casts 11 H (0-2) /lpf Urine Mucus Few H (None) /hpf Urine Yeast (Budding) Moderate H (None) /hpf Diabetes panel 11/15/22 Range/Units 05:31 Sodium 141 (137-145) mmol/L Potassium 4.2 (3.5-5.1) mmol/L Chloride 107 (98-107) mmol/L Carbon Dioxide 12 L (22-30) mmol/L BUN 75 H (7-17) mg/dL Creatinine 2.73 H (0.52-1.04) mg/dL Glucose 195 H (74-99) mg/dL Calcium 7.6 L (8.4-10.2) mg/dL AST 371 H (14-36) U/L ALT 124 H (4-34) U/L Alkaline Phosphatase 107 (38-126) U/L Total Protein 6.0 L (6.3-8.2) g/dL Albumin 3.3 L (3.5-5.0) g/dL Calcium panel 11/15/22 Range/Units 05:31 Calcium 7.6 L (8.4-10.2) mg/dL Phosphorus 11.6 H* (2.5-4.5) mg/dL Albumin 3.3 L (3.5-5.0) g/dL Pituitary panel 11/15/22 Range/Units 05:31 Sodium 141 (137-145) mmol/L Potassium 4.2 (3.5-5.1) mmol/L Chloride 107 (98-107) mmol/L Carbon Dioxide 12 L (22-30) mmol/L BUN 75 H (7-17) mg/dL Creatinine 2.73 H (0.52-1.04) mg/dL Glucose 195 H (74-99) mg/dL Calcium 7.6 L (8.4-10.2) mg/dL Adrenal panel 11/15/22 Range/Units 05:31 Sodium 141 (137-145) mmol/L Potassium 4.2 (3.5-5.1) mmol/L Chloride 107 (98-107) mmol/L Carbon Dioxide 12 L (22-30) mmol/L BUN 75 H (7-17) mg/dL Creatinine 2.73 H (0.52-1.04) mg/dL Glucose 195 H (74-99) mg/dL Calcium 7.6 L (8.4-10.2) mg/dL Total Bilirubin 0.9 (0.2-1.3) mg/dL AST 371 H (14-36) U/L ALT 124 H (4-34) U/L Alkaline Phosphatase 107 (38-126) U/L Total Protein 6.0 L (6.3-8.2) g/dL Albumin 3.3 L (3.5-5.0) g/dL Assessment and Plan (1) Vomiting Narrative/Plan: 72-year-old female with possible abdominal source of sepsis. Patient at least prior to the code had episodes of vomiting but no abdominal pain. Will add CT pelvis to the CAT scan abdomen already ordered. We'll follow with you. Supportive care. Current Visit: Yes Status: Acute Code(s): R11.10 - VOMITING, UNSPECIFIED SNOMED Code(s): 550846626
--- NOTE | 2022-11-15 11:32 | P.CNPUL ---
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 The patient was admitted for worsening shortness of breath. She also has multiple medical problems and comorbidities. Yesterday, the patient was found to be unresponsive. She was covered in fecal material in there is a possibility that she had a fecal emesis and subsequent aspiration. As such, she was resuscitated, received CPR, received epinephrine a total of 5 in addition to bicarb, intubated and brought in in today intensive care unit. Chest x-ray post cardiac arrest shows diffuse bilateral pulmonary infiltrates, more prominent and ET tube is in a good location. At this point in time, the patient is on propofol at a rate of 20 mcg/kg/m. The patient is also intubated on a mechanical ventilator on assist control mode with a rate of 28 tidal volume of 450 and FiO2 of 60% with a PEEP of 5. Please ventilator changes were done after an initial blood gas that showed a pH of 7.01 and a pCO2 of 50 and pO2 of 341. This was done around 5:00 this morning. Patient is also on pressors and currently she is on norepinephrine running at 0.08 mcg/kg/m. Most recent blood pressure is 92/51. Urine output is in order of 5-10 mL an hour. The patient's blood work from today shows a WBC count of 11.2 with hemoglobin 10.5 and a platelet count of 182. The chemistry shows a sodium of 141 potassium is 4.2 bicarb is 12 BUN 75 with a creatinine of 2.73. Note that the patient has chronic stage III kidney disease. She has undergone partial nephrectomy for previous history of renal cell carcinoma. Her over 19 testing was negative. Nevertheless, she was infected with Covid 19 back in February 2021 and at that time I was involved in her care where she suffered from acute hypoxic respiratory failure and she had a prolonged hospitalization. She has advanced COPD and she is oxygen dependent. She has previous history of hepatitis C, fibromyalgia and history of depression. Currently, she has an NG tube in place and there is obvious fecal material being drained through the NG tube and a total amount of output through the NG is in order of 600 mL since its insertion. General surgery is on the case. Noted the patient was having some GI issues earlier and she was having episodes of diarrhea and abdominal pain. During her ICU stay, the patient has already received a total of 5 doses of sodium bicarb, 50 mEq each. Repeat blood gases to be obtained. Labs will be established. In terms of antibiotic coverage, she is on cefepime and Flagyl. Noted the patient has previous history of C. diff colitis. Her current viral screen is negative including influenza, Covid 19 and RSV. Had echocardiogram that was done during this current admission showed a preserved LV function with an ejection fraction of 55%. Mild mitral regurgitation was also visualized. During this current admission, the patient was seen by nephrology and cardiology. The general surgical consultation was obtained suspecting bowel obstruction. I believe there is a component of an acute kidney injury. The patient has been taken off nonsteroidal and supplemented medications at home. This was discontinued. Patient was also seen by infectious disease during this current admission as the patient was having episodes of fever. She was covered by broad-spectrum antibiotics. Cultures are negative thus far. Review of Systems ROS unobtainable: due to endotracheal tube Past Medical History Past Medical History: Cancer, COPD, Fibromyalgia, Osteoarthritis (OA), Pneumonia, Rheumatoid Arthritis (RA) Additional Past Medical History / Comment(s): Pt tested covid + 03/07/21 [facility] ER. 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 L hand and ulcer on L wrist History of Any Multi-Drug Resistant Organisms: None Reported Date of last positivie culture/infection: 01/30/22 MDRO Source:: stool Past Surgical History: Back Surgery, Hysterectomy, Joint Replacement, Orthopedic Surgery Additional Past Surgical History / Comment(s): L partial nephrectomy, R wrist surgery for fracture, 3 L spine surgeries, 2 cervical surgeries, L hemiarthr oplasty d/t fracture, colonoscopy Past Anesthesia/Blood Transfusion Reactions: No Reported Reaction Past Psychological History: Depression Smoking Status: Former smoker Past Alcohol Use History: None Reported, Occasional Past Drug Use History: None Reported - Past Family History Father Family Medical History: Cancer Additional Family Medical History / Comment(s): LUNG CA Mother Family Medical History: Osteoarthritis (OA) Medications and Allergies Home Medications Medication Instructions Recorded Confirmed Type Raloxifene [Evista] 60 mg PO DAILY 02/07/15 11/12/22 History Sertraline HCl [Zoloft] 100 mg PO BID 02/07/15 11/12/22 History risperiDONE [RisperDAL] 2 mg PO HS 04/05/15 11/12/22 History busPIRone HCl [Buspar] 10 mg PO BID PRN 01/14/20 11/12/22 History traZODone HCL 100 mg PO HS 01/14/20 11/12/22 History Naproxen 500 mg PO BID PRN 03/07/21 11/12/22 History Dicyclomine HCl 10 - 20 mg PO QID PRN 12/16/21 11/12/22 History Ergocalciferol (Vitamin D2) 1,250 mcg PO Q7D 12/16/21 11/12/22 History [Drisdol (50,000 Iu)] amLODIPine [Norvasc] 10 mg PO DAILY #90 tab 12/20/21 11/12/22 Rx oxyCODONE-APAP 7.5-325MG [Percocet 1 tab PO Q6H PRN #12 tab 12/24/21 11/12/22 Rx 7.5-325 mg] Albuterol Sulfate [Ventolin HFA] 2 puff INHALATION RT-Q6H PRN 01/30/22 11/12/22 History Acetaminophen Tab [Tylenol] 650 mg PO Q6H PRN 03/07/22 11/12/22 History Aspirin EC [Ecotrin Low Dose] 81 mg PO DAILY 11/12/22 11/12/22 History Atorvastatin [Lipitor] 10 mg PO DAILY 11/12/22 11/12/22 History Budesonide/Formoterol Fumarate 1 puff INHALATION RT-BID 11/12/22 11/12/22 History [Symbicort 160-4.5 Mcg Inhaler] Gabapentin 800 mg PO TID 11/12/22 11/12/22 History Levothyroxine Sodium 125 mcg PO DAILY 11/12/22 11/12/22 History Meclizine [Antivert] 12.5 mg PO BID PRN 11/12/22 11/12/22 History Pantoprazole [Protonix] 40 mg PO DAILY 11/12/22 11/12/22 History Allergies Allergy/AdvReac Type Severity Reaction Status Date / Time Penicillins Allergy Dyspnea Verified 11/12/22 16:16 aspirin AdvReac Nausea & Verified 11/12/22 16:16 Vomiting morphine AdvReac Hallucinati Verified 11/12/22 16:16 ons Physical Exam Vitals: Vital Signs Temp Pulse Pulse Resp BP BP Pulse Ox 11/15/22 09:19 11/15/22 09:00 108 H 28 H 96/51 95 11/15/22 08:45 109 H 28 H 106/55 95 11/15/22 08:34 11/15/22 08:30 112 H 28 H 105/55 94 L 11/15/22 08:15 112 H 28 H 109/71 92 L 11/15/22 08:00 97.8 F 112 H 28 H 94/55 93 L 11/15/22 07:45 110 H 28 H 143/42 94 L 11/15/22 07:30 112 H 28 H 98/54 95 11/15/22 07:15 114 H 28 H 107/58 92 L 11/15/22 07:00 35 H 152/65 94 L 11/15/22 06:45 122 H 15 158/70 97 11/15/22 06:30 116 H 25 H 124/61 96 11/15/22 06:15 107 H 19 125/49 97 11/15/22 06:11 11/15/22 06:00 107 H 17 120/71 98 11/15/22 05:45 112 H 15 150/65 98 11/15/22 05:30 107 H 16 153/58 98 11/15/22 05:18 11/15/22 05:15 89 18 71/42 96 11/15/22 05:01 112 H 18 133/69 11/15/22 02:00 20 11/15/22 00:31 107 H 18 132/70 94 L 11/14/22 20:15 98.0 F 104 H 18 130/69 93 L 11/14/22 20:00 20 11/14/22 15:50 97.5 F L 99 20 101/65 94 L 11/14/22 14:00 99 20 11/14/22 13:19 98.3 F 115 H 19 103/67 91 L 11/14/22 11:00 100.2 F H 120 H 21 94/51 95 FiO2 11/15/22 09:19 60 12/17/22 09:00 11/15/22 08:45 11/15/22 08:34 60 11/15/22 08:30 11/15/22 08:15 11/15/22 08:00 60 11/15/22 07:45 11/15/22 07:30 11/15/22 07:15 11/15/22 07:00 11/15/22 06:45 11/15/22 06:30 11/15/22 06:15 11/15/22 06:11 60 11/15/22 06:00 60 11/15/22 05:45 11/15/22 05:30 11/15/22 05:18 100 11/15/22 05:15 100 11/15/22 05:01 11/15/22 02:00 11/15/22 00:31 11/14/22 20:15 11/14/22 20:00 11/14/22 15:50 11/14/22 14:00 11/14/22 13:19 11/14/22 11:00 Intake and Output 11/14/22 11/15/22 11/15/22 22:59 06:59 14:59 Intake Total 136 07 1478 Output Total 530 561 Balance 118 -470 609 Intake: IV 60 1170 Invasive Line 4 10 Sodium Chloride 0.9% 1, 60 160 000 ml @ 50 mls/hr IV . Q20H [facility] Rx#:[id number] Sodium Chloride 0.9% 1, 1000 000 ml @ 999 mls/hr IV . Q1H1M [facility] Rx#:[id number] Oral 118 0 Output: Gastric Drainage 500 Urine 530 60 Straight 500 Stool 1 Other: Voiding Method External Catheter Indwelling Catheter # Voids 0 # Bowel Movements 0 Patient is currently unresponsive, intubated on a mechanical ventilator and the patient is currently on propofol for sedation. She is trying to breathe above the mechanical ventilator. The patient has an NG tube in place. There is some fecal material being aspirated through the NG tube. Head exam was generally normal. There was no scleral icterus or corneal arcus. Mucous membranes were moist. Neck was supple and without jugular venous distension, thyromegaly, or carotid bruits. Carotids were easily palpable bilaterally. There was no adenopathy. Lungs sounds are diminished bilaterally and there is some bibasilar crackles. Otherwise breasts with Eliquis symmetrical. Cardiac exam revealed the PMI to be normally situated and sized. The rhythm was regular and no extrasystoles were noted during several minutes of auscultation. The first and second heart sounds were normal and physiologic splitting of the second heart sound was noted. There were no murmurs, rubs, clicks, or gallops. Abdomen is nondistended and nontender. Bowel sounds are hypoactive. No significant organomegaly. No ascites. Scars of previous surgery over the anterior abdominal wall. Extremities are cold and clammy. The patient's chronic nerve damage and deformity of the right upper extremity. Also quite diminished. There are palpable in all 4 extremities. No cyanosis. No clubbing. Examination of the skin revealed no evidence of significant rashes, suspicious appearing nevi or other concerning lesions. Neurologically the patient is sedated. No seizure activity has been noted. No facial asymmetry. The gaze is conjugate and upwards without any nystagmus. No twitching. No tremors. No withdrawal to any painful stimulation. Sensory and motor functions cannot be accurately assessed. Negative for Babinski and negative for clonus. Pupils are round 1 mm in size, nonreactive. An accurate for adequate cough reflex cannot obtain a my examination. Nevertheless, the patient is severely acidotic still and she was done on propofol. Results - Laboratory Findings CBC and BMP: 11/15/22 05:31 11/15/22 05:31 ABG ABG pH 7.01 (7.35-7.45) L* 11/15/22 05:47 ABG pCO2 50 mmHg (35-45) H 11/15/22 05:47 ABG pO2 341 mmHg (83-108) H 11/15/22 05:47 ABG O2 Saturation 99.2 % (94-97) H 11/15/22 05:47 PT/INR, D-dimer PT 11.4 sec (9.0-12.0) 11/12/22 14:50 INR 1.1 (<1.2) 11/12/22 14:50 Abnormal lab findings: Abnormal Labs 11/12/22 11/12/22 11/12/22 14:50 14:50 15:10 WBC RBC 3.40 L Hgb 10.7 L Hct 31.7 L MCV Plt Count 108 L Lymphocytes # 0.6 L Monocytes # (Manual) Metamyelocytes # (Man) Nucleated RBCs ABG pH 7.26 L ABG pCO2 ABG pO2 ABG HCO3 18 L ABG Total CO2 ABG O2 Saturation Chloride 109 H Carbon Dioxide 14 L BUN 47 H Creatinine 3.19 H Glucose 102 H POC Glucose (mg/dL) Plasma Lactic Acid Brennan Calcium Phosphorus Magnesium AST 54 H ALT C-Reactive Protein Total Protein Albumin Procalcitonin Urine Appearance Urine Protein Urine Blood Ur Leukocyte Esterase Urine RBC Urine WBC Urine WBC Clumps Urine Bacteria Hyaline Casts Urine Mucus Urine Yeast (Budding) 11/13/22 11/13/22 11/13/22 06:37 06:37 07:25 WBC RBC 3.41 L Hgb 10.4 L Hct 32.5 L MCV Plt Count 113 L Lymphocytes # Monocytes # (Manual) Metamyelocytes # (Man) Nucleated RBCs ABG pH ABG pCO2 ABG pO2 ABG HCO3 ABG Total CO2 ABG O2 Saturation Chloride Carbon Dioxide 16 L BUN 49 H Creatinine 2.19 H Glucose 138 H POC Glucose (mg/dL) Plasma Lactic Acid Brennan Calcium Phosphorus Magnesium AST ALT C-Reactive Protein Total Protein Albumin Procalcitonin Urine Appearance Urine Protein Trace H Urine Blood Small H Ur Leukocyte Esterase Small H Urine RBC Urine WBC Urine WBC Clumps Urine Bacteria Occasional H Hyaline Casts 4 H Urine Mucus Urine Yeast (Budding) 11/13/22 11/14/22 11/14/22 19:30 07:48 10:03 WBC RBC Hgb Hct MCV Plt Count Lymphocytes # Monocytes # (Manual) Metamyelocytes # (Man) Nucleated RBCs ABG pH ABG pCO2 ABG pO2 ABG HCO3 ABG Total CO2 ABG O2 Saturation Chloride Carbon Dioxide 19 L BUN 64 H Creatinine 2.63 H Glucose 124 H POC Glucose (mg/dL) 132 H Plasma Lactic Acid Brennan Calcium Phosphorus Magnesium 2.5 H AST ALT C-Reactive Protein 23.6 H Total Protein Albumin Procalcitonin Urine Appearance Urine Protein Urine Blood Ur Leukocyte Esterase Urine RBC Urine WBC Urine WBC Clumps Urine Bacteria Hyaline Casts Urine Mucus Urine Yeast (Budding) 11/14/22 11/15/22 11/15/22 10:03 04:59 05:31 WBC RBC Hgb Hct MCV Plt Count Lymphocytes # Monocytes # (Manual) Metamyelocytes # (Man) Nucleated RBCs ABG pH ABG pCO2 ABG pO2 ABG HCO3 ABG Total CO2 ABG O2 Saturation Chloride Carbon Dioxide 12 L BUN 75 H Creatinine 2.73 H Glucose 195 H POC Glucose (mg/dL) 210 H Plasma Lactic Acid Brennan Calcium 7.6 L Phosphorus 11.6 H* Magnesium 2.6 H AST 371 H ALT 124 H C-Reactive Protein Total Protein 6.0 L Albumin 3.3 L Procalcitonin 0.62 H Urine Appearance Urine Protein Urine Blood Ur Leukocyte Esterase Urine RBC Urine WBC Urine WBC Clumps Urine Bacteria Hyaline Casts Urine Mucus Urine Yeast (Budding) 11/15/22 11/15/22 11/15/22 05:31 05:31 05:47 WBC 11.2 H RBC 3.32 L Hgb 10.5 L Hct 33.8 L MCV 101.8 H D Plt Count Lymphocytes # Monocytes # (Manual) 2.13 H Metamyelocytes # (Man) 0.34 H Nucleated RBCs 6 H ABG pH 7.01 L* ABG pCO2 50 H ABG pO2 341 H ABG HCO3 13 L ABG Total CO2 14 L ABG O2 Saturation 99.2 H Chloride Carbon Dioxide BUN Creatinine Glucose POC Glucose (mg/dL) Plasma Lactic Acid Brennan 9.0 H* Calcium Phosphorus Magnesium AST ALT C-Reactive Protein Total Protein Albumin Procalcitonin Urine Appearance Urine Protein Urine Blood Ur Leukocyte Esterase Urine RBC Urine WBC Urine WBC Clumps Urine Bacteria Hyaline Casts Urine Mucus Urine Yeast (Budding) 11/15/22 06:48 WBC RBC Hgb Hct MCV Plt Count Lymphocytes # Monocytes # (Manual) Metamyelocytes # (Man) Nucleated RBCs ABG pH ABG pCO2 ABG pO2 ABG HCO3 ABG Total CO2 ABG O2 Saturation Chloride Carbon Dioxide BUN Creatinine Glucose POC Glucose (mg/dL) Plasma Lactic Acid Brennan Calcium Phosphorus Magnesium AST ALT C-Reactive Protein Total Protein Albumin Procalcitonin Urine Appearance Cloudy H Urine Protein 2+ H Urine Blood Large H Ur Leukocyte Esterase Urine RBC 7 H Urine WBC 50 H Urine WBC Clumps Moderate H Urine Bacteria Many H Hyaline Casts 11 H Urine Mucus Few H Urine Yeast (Budding) Moderate H - Diagnostic Findings Chest x-ray: image reviewed Assessment and Plan Plan: Acute cardiac arrest in the form of PEA. Estimated down time is around 10-14 minutes. The patient was resuscitated, received CPR and epinephrine. We suspect that this cardiac arrest was related to a respiratory events where the patient aspirated fecal material probably due to an underlying bowel obstruction and emesis. Currently intubated on a mechanical ventilator. Currently on pressors. Suspect anoxic encephalopathy based on my neurologic examination Anoxic encephalopathy suspected based on the above Acute hypoxic respiratory failure secondary to above Acute metabolic acidosis with a lactic acid level of 9 at the time of admission Acute shock, hypotension and the patient is currently on norepinephrine was being titrated to maintain a mean arterial pressure above 60 Acute on chronic kidney disease Acute bowel obstruction with NG tube in place producing fecal material. GI surgeries on the case. 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 Repeat a blood given though this is necessary ventilator changes. The patient has already received a total of 3 L of bolus of normal saline and currently she is on pressors The patient will have a CAT scan of the abdomen and pelvis without contrast GI surgeries on the case and the patient will be kept nothing by mouth and NG tube is also in a good location Suspect aspiration and the patient is currently on a combination of cefepime and Flagyl Suspect anoxic encephalopathy and the patient will be taken off sedation and underlying mental status will be assessed. We will also consult neurology. A CAT scan of the brain will be also needed and as long as the patient is going to have a CAT scan of the abdomen, I would also add a CAT scan of the brain no contrast. A triple-lumen catheter and arterial line catheter was inserted. Condition is obviously critical. We'll continue the supportive care and will maintain him make further recommendations based on her progress. Poor prognosis. Suspect anoxic encephalopathy. Time with Patient: Greater than 30
--- NOTE | 2022-11-15 11:38 | P.PCN ---
Date of Procedure: 11/15/22 Preoperative Diagnosis: Acute cardiac arrest Postoperative Diagnosis: Acute cardiac arrest Procedure(s) Performed: Central line insertion and triple-lumen catheter insertion Anesthesia: local Surgeon: Elio Goodwin Operative Findings: ARTERIAL LINE Indication: Hemodynamic monitoring. A time-out was completed verifying correct patient, procedure, site, positioning, and implant(s) or special equipment if applicable. Allens test was performed to ensure adequate perfusion. The patients left wrist was prepped and draped in sterile fashion. 1% Lidocaine was used to anesthetize the area. An 18G Arrow arterial line was introduced into the radial artery. The catheter was threaded over the guide wire and the needle was re moved with appropriate pulsatile blood return. Blood loss was minimal. The catheter was then sutured in place to the skin and a sterile dressing applied. Perfusion to the extremity distal to the point of catheter insertion was checked and found to be adequate. The patient tolerated the procedure well and there were no complications. CENTRAL lINE Indication: Hemodynamic monitoring/Intravenous access. A time-out was completed verifying correct patient, procedure, site, positioning, and implant(s) or special equipment if applicable. The patient was placed in a dependent position appropriate for central line placement based on the vein to be cannulated. The patients left CHEST was prepped and draped in sterile fashion. 1% Lidocaine was used to anesthetize the surrounding skin area. A triple lumen 9F Cordis catheter was introduced into the LEFT subclavian vein using Seldinger technique. The catheter was threaded smoothly over the guide wire and appropriate blood return was obtained. Each lumen of the catheter was evacuated of air and flushed with sterile saline. The catheter was then sutured in place to the skin and a sterile dressing applied. Perfusion to the extremity distal to the point of catheter insertion was checked and found to be adequate. The patient tolerated the procedure well and there were no complications.
[2022-11-15 11:45] LABS: ABG Base Excess -14.7 mmol/L; ABG HCO3 15 mmol/L (21-25); ABG Oxygen Saturation 90.1 % (94-97); ABG PCO2 52 mmHg (35-45); ABG PO2 77 mmHg (83-108); ABG TCO2 17 mmol/L (19-24); Allen Test Performed? Yes
[2022-11-15 11:49] LABS: ABG PH 7.08 (7.35-7.45)
[2022-11-15] MEDS: metroNIDAZOLE-NS PMX 500 MG in SALINE 1 100ML.BAG IVPB SCH ×2 (11:51→17:50)
[2022-11-15] MEDS: CHLORHEXIDINE GLUCONATE 15 ML CUP MUCOUS MEM SCH ×2 (11:58→21:48)
[2022-11-15] MEDS ORDERED: DEXTROSE 50% SYRINGE 50 ML IVP ONE (12:47)
[2022-11-15 12:48] LABS: Glucose,Whole Blood 45 mg/dL (70-110)
--- NOTE | 2022-11-15 12:53 | CT ---
EXAMINATION TYPE: CT abdomen pelvis wo con CT DLP: 1157.1 mGycm, Automated exposure control for dose reduction was used. DATE OF EXAM: 11/15/2022 12:35 PM COMPARISON: CT abdomen pelvis most recent from 01/30/2022 CLINICAL INDICATION:Female, 72 years old with history of obstruction; TECHNIQUE: Axial CT of the abdomen and pelvis. Sagittal and coronal reformats were created on a [employer] workstation. Contrast used: None Oral contrast used: without Oral Contrast FINDINGS: Limited evaluation secondary to streak artifact from patient's surgery. LOWER CHEST: Airspace opacities and consolidation changes in the left lung base1 additional air space opacities in the right lung base. ABDOMEN LIVER: Unremarkable GALLBLADDER AND BILE DUCTS: Unremarkable. PANCREAS: Unremarkable. SPLEEN: Scattered calcified granulomas. ADRENAL GLANDS: Unremarkable. KIDNEYS AND URETERS: No evidence of hydronephrosis or renal calculus. Left renal cortical calcificati on measuring up to 19 mm. PELVIS BLADDER: Nondistended with Staley catheter in place. REPRODUCTIVE: Unremarkable. ABDOMEN & PELVIS STOMACH AND BOWEL: No evidence of bowel obstruction. Nasogastric tube terminating in the stomach. Di lated loops of small bowel most pronounced in the left abdomen with relative sparing of the small bow el in the right lower quadrant. No definitive transition point identified. There is minimal stool thr oughout the right colon and extending to the descending colon and sigmoid colon. Scattered clonic div erticula. PERITONEUM: No evidence of pneumoperitoneum or free fluid. VASCULATURE: No evidence of aortic aneurysm. Atherosclerosis of the arterial vasculature. MUSCULOSKELETAL: No acute osseous abnormalities extensive surgical changes to the spine and left hip arthroplasty changes which limits evaluation of the exam due to streak artifact. LYMPH NODES: No gross evidence for lymphadenopathy. SOFT TISSUE/ABDOMINAL WALL: Unremarkable IMPRESSION: 1. Small bowel bowel terminal ileum nondistention and minimal feces within the colon with a dilated jejunum and proximal ileum. Except be smooth tapering of the bowel. No definitive transition point id entified, if there was one it would be expected in the right lower quadrant. Consider dedicated small bowel follow-through to rule out obstruction. 2. Bilateral airspace disease which could be secondary to aspiration, left greater than right. 3. Colonic diverticulosis.
--- NOTE | 2022-11-15 12:55 | CT ---
EXAMINATION TYPE: CT brain wo con CT DLP: 1100.4 mGycm, Automated exposure control for dose reduction was used. DATE OF EXAM: 11/15/2022 12:36 PM COMPARISON: 12/16/2021, MRI 12/17/2021 CLINICAL INDICATION:Female, 72 years old with history of cardiac arrest, Cardiac arrest, vented TECHNIQUE: Brain: Axial CT images of the brain were obtained with coronal and sagittal reformats created and rev iewed. Contrast used: None. Oral contrast used: None. FINDINGS: Brain: Extra-axial spaces: No abnormal extra-axial fluid collections. Ventricular system: Within normal limits Cerebral parenchyma: No acute intraparenchymal hemorrhage or mass effect. The thomas-white junction is well differentiated. Cerebellum: Unremarkable. Mass effect: No evidence of midline shift. Intracranial vasculature: Atherosclerotic calcifications of the intracranial vessels. Soft tissues: Normal. Calvarium/osseous structures: No depressed skull fracture. Paranasal sinuses and mastoid air cells: Mild scattered paranasal sinus disease. Visualized orbits: Orbital contents are intact. Diverging gaze noted. IMPRESSION: 1. No acute intracranial process. 2. New Diverging gaze noted.
[2022-11-15 13:09] LABS: Glucose,Whole Blood 153 mg/dL (70-110)
[2022-11-15] MEDS: DEXTROSE 10% IN WATER 500 ML in EMPTY BAG 1 BAG IV SCH ×2 (13:15→21:27)
--- NOTE | 2022-11-15 13:45 | P.PN ---
Subjective Progress Note Date: 11/15/22 This is a 72 year old female with medical history of COPD, renal carcinoma with surgery, hypothyroidism, fibromyalgia, rheumatoid arthritis, left partial nephrectomy, former smoker. She has history of left wrist fracture with surgery and osteomyelitis which has required IV antibiotics outpatient in the past, currently on oral antibiotics chronically for this. Patient presents this admission with short of breath and fatigue over the last few days. Reports low grade fever, weakness states her legs won't work. Denies chest pain. EMS found patient to be hypoxic on 5L of nasal cannula with saturation in the low 80s. Patient is on 5L nasal cannula chronically. Chest xray showing left greater than right interstitial edema and/or infiltrates. EKG showing sinus tachycardia with heart rate of 102, no ST or Twave abnormalities noted. On admission creatinine was found to be elevated at 3.19. proBNP 1040. Influenza, covid and RSV negative. Urine negative for infection. Patient has no white count, hgb stable at 10.7. Patient has been started on IV lasix 40 mg Q12 and creatinine has improved down to 2.19. Most recent echocardiogram in November of 2021 showing an EF of 55 to 60%, mild TR, mild MR, mild pulmonary hypertension. She has diuresed well and lung sounds have improved, no lower extremity edema. Cardiology and nephroloy have been consulted. 11/14/2022 Patient evaluated today on stepdown unit. Family at bedside, she is more lethargic today, had an episode of emesis. IV lasix held yesterday patient has diuresed over 2.1 Liters. Creatinine today increased up to 2.69, she is started on gentle hydration normal saline at 50 mls per hour. Had some urinary retention. Chest xray today shows mild retrocardiac infiltrate. Echocardiogram showing normal LV function and mild mitral regurgitation. Patient also had abdominal ultrasound performed showing nonobstructing renal stones and also splenomegaly. Procalcitonin elevated at 0.62. Patient did have temp max today 100.3 axillary. Blood pressure was elevated overnight, currently running 103/67. Continues to maintain oxygen saturations on 5L nasal cannula. Infectious disease consulted and patient has been started on IV cefepime. Nephrology and cardiology following. 11/15/2022 Early this morning a code blue was called for this patient who was initially bradycardic and then PEA, CPR was initiated. Patient was also found to have fecal emesis. She was intubated and brought to the intensive care unit, on mechanical ventilator. Labs today reveal white count of 11.2, hemoglobin of 10.5. Sodium of 141, potassium 4.2. BUN 75 creatinine 2.73 with worsening renal function. She has also has elevated transaminases today. Lactic acid found to be 9.0, phosphorous level high at 11.6. Repeat urinalysis abnormal with large blood many bacteria moderate yeast. Blood gases reveal pH level of 7.01. She has remained afebrile since yesterday afternoon. She is tachycardic in the 110s, blood pressure 109/71, oxygen saturation 92%. Currently maintained on IV cefepime, IV levophed at 0.05 mcg/kg/min, sedated with propofol. She has been receiving gentle hydration with normal saline at 50 mls per hour. Chest xray this morning reveals increased pulmonary edema as compared to previous xray with patchy interstitial edema. Concern for aspiration of fecal emesis. Family does report that patient had been complaining of abdominal pain with episodes of diarrhea prior to admission. Unable to complete review of systems as patient is intubated and in the ICU. PHYSICAL EXAMINATION: GENERAL: The patient is currently intubated on mechanical ventilator. Well Developed, Well nourished. HEENT: Pupils are round and equally reacting to light. EOMI. No scleral icterus. No conjunctival pallor. Normocephalic, atraumatic. No pharyngeal erythema. No thyromegaly. CARDIOVASCULAR: S1 and S2 present. No murmurs, rubs, or gallops. PULMONARY: Chest is clear to auscultation, no wheezing or crackles. Diminished. ABDOMEN: Soft, nontender, mils distention, Negative bowel sounds. No palpable organomegaly. MUSCULOSKELETAL: No joint swelling or deformity. EXTREMITIES: No cyanosis, clubbing, or pedal edema. NEUROLOGICAL: Unable to complete full neurological work up patient is intubated in ICU SKIN: No rashes. Deformity to right arm, there is small open wound to right wrist with bandaid covering, minimal drainage no surrounding redness. Chronic Assessment and Plan Assessment -Cardiac arrest currently intubated on mechanical ventilator in intensive care unit -Multiple episodes of emesis with abdominal distention under investigation -Altered mental status secondary to acute metabolic and toxic encephalopathy multifactorial secondary to ANNA and also possible pneumonia -Fever, tachycardia with sepsis possible abdominal source patient did have fecal emesis possible bowel obstruction -Acute on chronic hypoxic respiratory failure multifactorial secondary to volume overload and possible COPD exacerbation, possible pneumonia. She was diuresed on admission. -Acute kidney injury possibly from NSAID use currently with worsening renal function post cardiac arrest. 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 Dr. Whit MD I have performed a history and physical examination and medical decision making of this patient, discussed the same with the dictator, and agree with the dictators assessment and plan as written, documented as a scribe. Based on total visit time, I have performed more than 50% of this visit. Objective - Vital Signs Vital signs: Vital Signs Temp 97.8 F 11/15/22 08:00 Pulse 112 H 11/15/22 08:15 Resp 28 H 11/15/22 08:15 BP 109/71 11/15/22 08:15 Pulse Ox 92 L 11/15/22 08:15 FiO2 60 11/15/22 08:34 Intake & Output 11/14/22 11/15/22 11/15/22 18:59 06:59 18:59 Intake Total 403 317 4580 Output Total 530 551 Balance 840 -352 569 Weight 81 kg Intake: IV 60 1120 Invasive Line 4 10 Sodium Chloride 0.9% 1, 60 110 000 ml @ 50 mls/hr IV . Q20H [facility] Rx#:[id number] Sodium Chloride 0.9% 1, 1000 000 ml @ 999 mls/hr IV . Q1H1M [facility] Rx#:[id number] Intake, IV Titration 600 Amount ACETAMINOPHEN IV (For NPO 400 ) 1,000 mg In Empty Bag 1 bag @ 400 mls/hr IVPB ONCE ONE Rx#:[id number] Cefepime 1 gm In Sodium 50 Chloride 0.9% 50 ml @ 12. 5 mls/hr IVPB Q12H [facility] Rx #:[id number] Sodium Chloride 0.9% 1, 150 000 ml @ 50 mls/hr IV . Q20H [facility] Rx#:[id number] Oral 240 118 0 Output: Gastric Drainage 500 Urine 530 50 Straight 500 Stool 1 Other: Voiding Method External Catheter Indwelling Catheter # Voids 0 # Bowel Movements 0 - Labs CBC & Chem 7: 11/15/22 05:31 11/15/22 05:31 Labs: Abnormal Lab Results - Last 24 Hours (Table) 11/14/22 11/14/22 11/15/22 Range/Units 10:03 10:03 04:59 WBC (3.8-10.6) k/uL RBC (3.80-5.40) m/uL Hgb (11.4-16.0) gm/dL Hct (34.0-46.0) % MCV (80.0-100.0) fL Monocytes # (Manual) (0-1.0) k/uL Metamyelocytes # (Man) (0) k/uL Nucleated RBCs (0-0) /100 WBC ABG pH (7.35-7.45) ABG pCO2 (35-45) mmHg ABG pO2 (83-108) mmHg ABG HCO3 (21-25) mmol/L ABG Total CO2 (19-24) mmol/L ABG O2 Saturation (94-97) % Carbon Dioxide (22-30) mmol/L BUN (7-17) mg/dL Creatinine (0.52-1.04) mg/dL Glucose (74-99) mg/dL POC Glucose (mg/dL) 210 H (70-110) mg/dL Plasma Lactic Acid Brennan (0.7-2.0) mmol/L Calcium (8.4-10.2) mg/dL Phosphorus (2.5-4.5) mg/dL Magnesium (1.6-2.3) mg/dL AST (14-36) U/L ALT (4-34) U/L C-Reactive Protein 23.6 H (<1.0) mg/dL Total Protein (6.3-8.2) g/dL Albumin (3.5-5.0) g/dL Procalcitonin 0.62 H (0.02-0.09) ng/mL Urine Appearance (Clear) Urine Protein (Negative) Urine Blood (Negative) Urine RBC (0-5) /hpf Urine WBC (0-5) /hpf Urine WBC Clumps (None) /hpf Urine Bacteria (None) /hpf Hyaline Casts (0-2) /lpf Urine Mucus (None) /hpf Urine Yeast (Budding) (None) /hpf 11/15/22 11/15/22 11/15/22 Range/Units 05:31 05:31 05:31 WBC 11.2 H (3.8-10.6) k/uL RBC 3.32 L (3.80-5.40) m/uL Hgb 10.5 L (11.4-16.0) gm/dL Hct 33.8 L (34.0-46.0) % MCV 101.8 H D (80.0-100.0) fL Monocytes # (Manual) 2.13 H (0-1.0) k/uL Metamyelocytes # (Man) 0.34 H (0) k/uL Nucleated RBCs 6 H (0-0) /100 WBC ABG pH (7.35-7.45) ABG pCO2 (35-45) mmHg ABG pO2 (83-108) mmHg ABG HCO3 (21-25) mmol/L ABG Total CO2 (19-24) mmol/L ABG O2 Saturation (94-97) % Carbon Dioxide 12 L (22-30) mmol/L BUN 75 H (7-17) mg/dL Creatinine 2.73 H (0.52-1.04) mg/dL Glucose 195 H (74-99) mg/dL POC Glucose (mg/dL) (70-110) mg/dL Plasma Lactic Acid Brennan 9.0 H* (0.7-2.0) mmol/L Calcium 7.6 L (8.4-10.2) mg/dL Phosphorus 11.6 H* (2.5-4.5) mg/dL Magnesium 2.6 H (1.6-2.3) mg/dL AST 371 H (14-36) U/L ALT 124 H (4-34) U/L C-Reactive Protein (<1.0) mg/dL Total Protein 6.0 L (6.3-8.2) g/dL Albumin 3.3 L (3.5-5.0) g/dL Procalcitonin (0.02-0.09) ng/mL Urine Appearance (Clear) Urine Protein (Negative) Urine Blood (Negative) Urine RBC (0-5) /hpf Urine WBC (0-5) /hpf Urine WBC Clumps (None) /hpf Urine Bacteria (None) /hpf Hyaline Casts (0-2) /lpf Urine Mucus (None) /hpf Urine Yeast (Budding) (None) /hpf 11/15/22 11/15/22 Range/Units 05:47 06:48 WBC (3.8-10.6) k/uL RBC (3.80-5.40) m/uL Hgb (11.4-16.0) gm/dL Hct (34.0-46.0) % MCV (80.0-100.0) fL Monocytes # (Manual) (0-1.0) k/uL Metamyelocytes # (Man) (0) k/uL Nucleated RBCs (0-0) /100 WBC ABG pH 7.01 L* (7.35-7.45) ABG pCO2 50 H (35-45) mmHg ABG pO2 341 H (83-108) mmHg ABG HCO3 13 L (21-25) mmol/L ABG Total CO2 14 L (19-24) mmol/L ABG O2 Saturation 99.2 H (94-97) % Carbon Dioxide (22-30) mmol/L BUN (7-17) mg/dL Creatinine (0.52-1.04) mg/dL Glucose (74-99) mg/dL POC Glucose (mg/dL) (70-110) mg/dL Plasma Lactic Acid Brennan (0.7-2.0) mmol/L Calcium (8.4-10.2) mg/dL Phosphorus (2.5-4.5) mg/dL Magnesium (1.6-2.3) mg/dL AST (14-36) U/L ALT (4-34) U/L C-Reactive Protein (<1.0) mg/dL Total Protein (6.3-8.2) g/dL Albumin (3.5-5.0) g/dL Procalcitonin (0.02-0.09) ng/mL Urine Appearance Cloudy H (Clear) Urine Protein 2+ H (Negative) Urine Blood Large H (Negative) Urine RBC 7 H (0-5) /hpf Urine WBC 50 H (0-5) /hpf Urine WBC Clumps Moderate H (None) /hpf Urine Bacteria Many H (None) /hpf Hyaline Casts 11 H (0-2) /lpf Urine Mucus Few H (None) /hpf Urine Yeast (Budding) Moderate H (None) /hpf Assessment and Plan Time with Patient: Greater than 30
[2022-11-15 13:55] LABS: ABG HCO3 14 mmol/L (21-25); ABG Oxygen Saturation 93.9 % (94-97); ABG PCO2 42 mmHg (35-45); ABG PO2 81 mmHg (83-108); ABG TCO2 16 mmol/L (19-24); Allen Test Performed? Yes
[2022-11-15 13:57] LABS: ABG PH 7.13 (7.35-7.45)
[2022-11-15 16:41] LABS: Glucose,Whole Blood 136 mg/dL (70-110)
[2022-11-15] MEDS ORDERED: ARTIFICIAL TEARS-HYPROMELLOSE DROPS 15 ML BTL BOTH EYES PRN (16:42)
[2022-11-15 17:45] VITALS: RESP 32
[2022-11-15 20:08] LABS: Glucose,Whole Blood 123 mg/dL (70-110)
[2022-11-15] MEDS: ALBUTEROL NEBULIZED 2.5 MG/3 ML INHALATION PRN (20:24)
[2022-11-15] MEDS ORDERED: VASOPRESSIN 60 UNIT in SODIUM CHLORIDE 0.9% 150 ML IV SCH (20:30)
[2022-11-15] MEDS ORDERED: HEPARIN SODIUM,PORCINE/PF 5,000 UNIT/0.5 ML SYRINGE SQ SCH (21:00)
[2022-11-15] MEDS: NOREPINEPHRINE 8 MG in SODIUM CHLORIDE 0.9% 250 ML IV SCH (21:24)
[2022-11-15] MEDS ORDERED: SODIUM CHLORIDE 0.9% 2,000 ML IV ONE (21:28)
[2022-11-15] MEDS: ARTIFICIAL TEARS-HYPROMELLOSE DROPS 15 ML BTL BOTH EYES SCH ×2 (21:49→23:43)
[2022-11-15 23:31] LABS: HCT 24.6 % (34.0-46.0); Hypochromasia Marked; MCH 31.1 pg (25.0-35.0); MCHC 29.9 g/dL (31.0-37.0); Macrocytosis Moderate; Mean Platelet Volume 12.7; RBC 2.36 m/uL (3.80-5.40); RDW 15.5 % (11.5-15.5)
[2022-11-15 23:36] LABS: ABG Base Excess -25.2 mmol/L; ABG Oxygen Saturation 91.2 % (94-97); ABG PCO2 38 mmHg (35-45); ABG PO2 84 mmHg (83-108); ABG TCO2 9 mmol/L (19-24); Allen Test Performed? Yes
[2022-11-15 23:42] LABS: ABG HCO3 8 mmol/L (21-25); ABG PH 6.91 (7.35-7.45)
[2022-11-15 23:54] LABS: Magnesium 1.9 mg/dL (1.6-2.3); Potassium 3.2 mmol/L (3.5-5.1)
[2022-11-15 23:56] LABS: HGB 7.3 gm/dL (11.4-16.0)
[2022-11-15 23:58] LABS: Calcium 5.4 mg/dL (8.4-10.2)
[2022-11-16] MEDS ORDERED: CALCIUM GLUCONATE IN NACL 2 GM in SALINE 1 100ML.BAG IVPB ONE ×2 (00:29→01:29)
[2022-11-16 00:35] LABS: Band Neutrophils % 28 %; Metamyelocytes % 7 %; Myelocytes % 2 %; Neutrophils % (M) 51 %; Nucleated Red Blood Cells 16 /100 WBC (0-0); Total Cells Counted 200
[2022-11-16 00:36] LABS: Large Platelets Present; Lymphocytes # (M) 0.17 k/uL (1.0-4.8); Metamyelocytes # (M) 0.24 k/uL (0); Monocytes # (M) 0.17 k/uL (0-1.0); Myelocytes # (M) 0.07 k/uL (0); Poikilocytosis (M) Present; Polychromasia Present; WBC 3.4 k/uL (3.8-10.6)
[2022-11-16] MEDS ORDERED: SODIUM BICARB 8.4% 50 ML SYR (1 MEQ/ML) IV STA (01:11)
[2022-11-16] MEDS: metroNIDAZOLE-NS PMX 500 MG in SALINE 1 100ML.BAG IVPB SCH (01:38)
[2022-11-16 01:52] LABS: ABG Base Excess -22.6 mmol/L; ABG PCO2 40 mmHg (35-45); ABG PO2 73 mmHg (83-108); ABG TCO2 10 mmol/L (19-24); Allen Test Performed? Yes
[2022-11-16 01:56] LABS: ABG HCO3 9 mmol/L (21-25); ABG PH 6.97 (7.35-7.45)
[2022-11-16] MEDS ORDERED: DEXTROSE 50% SYRINGE 50 ML IVP ONE ×2 (03:51→05:52)
[2022-11-16] MEDS: DEXTROSE 5% IN WATER 1,000 ML with SODIUM BICARB (1 MEQ/ML) 150 ML IV SCH ×3 (04:01→11:13)
[2022-11-16] MEDS: ARTIFICIAL TEARS-HYPROMELLOSE DROPS 15 ML BTL BOTH EYES SCH (04:02)
[2022-11-16 04:08] LABS: Glucose,Whole Blood 53 mg/dL (70-110)
[2022-11-16 04:27] LABS: Glucose,Whole Blood 151 mg/dL (70-110)
[2022-11-16] MEDS: NOREPINEPHRINE 8 MG in SODIUM CHLORIDE 0.9% 250 ML IV SCH (04:32)
[2022-11-16 04:43] VITALS: TEMP 98
[2022-11-16 05:09] LABS: HCT 24.1 % (34.0-46.0); Hypochromasia Marked; MCH 30.7 pg (25.0-35.0); MCHC 28.8 g/dL (31.0-37.0); MCV 106.8 fL (80.0-100.0); Macrocytosis Marked; Mean Platelet Volume 12.7; RBC 2.26 m/uL (3.80-5.40); RDW 15.6 % (11.5-15.5); WBC 3.5 k/uL (3.8-10.6)
[2022-11-16 05:21] LABS: Platelet Count 61 k/uL (150-450)
[2022-11-16 05:22] LABS: HGB 6.9 gm/dL (11.4-16.0)
[2022-11-16 05:23] LABS: Platelet Count 81 k/uL (150-450)
[2022-11-16 05:28] LABS: Albumin 1.7 g/dL (3.5-5.0); Calcium 6.5 mg/dL (8.4-10.2); Potassium 4.1 mmol/L (3.5-5.1); Total Bilirubin 2.3 mg/dL (0.2-1.3); Total Protein 3.4 g/dL (6.3-8.2)
[2022-11-16 05:53] LABS: ABG Base Excess -28.4 mmol/L; ABG PCO2 36 mmHg (35-45); ABG PO2 81 mmHg (83-108); ABG TCO2 7 mmol/L (19-24); Allen Test Performed? Yes
[2022-11-16 05:55] LABS: ABG PH 6.82 (7.35-7.45)
[2022-11-16 05:56] LABS: ABG HCO3 6 mmol/L (21-25)
[2022-11-16 05:58] LABS: Glucose,Whole Blood 90 mg/dL (70-110)
[2022-11-16 06:48] LABS: Glucose,Whole Blood 155 mg/dL (70-110)
[2022-11-16 07:32] VITALS: BP 90/64
[2022-11-16] MEDS ORDERED: LEVOTHYROXINE IVP 100 MCG/5 ML VIAL IV SCH (09:00)
[2022-11-16 11:08] VITALS: PULSE 0
--- NOTE | 2022-11-18 01:33 | P.DS ---
Providers Date of admission: 11/12/22 19:11 Attending physician: Mahesh Matute Consults: 11/15/22 05:46 Consult Physician Stat Consulting Provider: Elio Goodwin Consult Reason/Comments: ICU. Ventilator managment Do you want consulting provider notified?: Already Contacted [facility] Course: Final Diagnosis -Cardiac arrest, intubated on mechanical ventilator in intensive care unit -Hypotensive shock requiring vasopressor support -Shock liver with elevated transaminases -Acute on chronic hypoxic respiratory failure multifactorial secondary to volume overload and possible COPD exacerbation, possible pneumonia. She was diuresed on admission. -Pneumonia with sepsis with sputum culture showing klebsiella pneumoniae -Altered mental status secondary to acute metabolic and toxic encephalopathy multifactorial secondary to ANNA and also possible pneumonia -Fever, tachycardia with sepsis possibly from abdominal source CT did show evidence of bowel obstruction although no radiographic evidence for perforation. Sputum culture positive for klebsiella pneumoniae ESBL. -Multiple episodes of emesis with abdominal distention under investigation -Aspiration pneumonia secondary to emesis possible fecal emesis. -Acute kidney injury possibly from NSAID use currently with worsening renal function post cardiac arrest. -Metabolic acidosis secondary to ANNA -History COPD with chronic hypoxic respiratory failure -Hypertension -Hyperlipidemia -Generalized weakness -History hypothyroidism -Fibromyalgia -Rheumatoid arthritis -History of C. 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 Preliminary cause of pneumonia with sepsis. Hospital Course This is a 72 year old female with medical history of COPD, renal carcinoma with surgery, hypothyroidism, fibromyalgia, rheumatoid arthritis, left partial nephrectomy, C. Dif colitis, former smoker. She has history of left wrist fracture with surgery and osteomyelitis which has required prolonged antibiotic use in the past. Patient presents this admission with short of breath and fatigue over the last few days. Reports low grade fever, weakness states her legs won't work. Denies chest pain. Denies nausea, vomiting, or diarrhea. Denies abdominal pain. Denies dysuria, frequency or urgency. EMS found patient to be hypoxic on 5L of nasal cannula with saturation in the low 80s. Patient is on 5L nasal cannula chronically. On initial chest xray there was left greater than right interstitial edema and/or infiltrates. EKG on admission showing sinus tachycardia with heart rate of 102, no ST or Twave abnormalities noted. On admission creatinine was found to be elevated at 3.19. proBNP 1040. Influenza, covid and RSV negative. Urine negative for infection. Patient has no white count, hgb stable at 10.7. Patient was initially diuresed on admission secondary to pulmonary edema and creatinine had initially improved to 2.19. She was evaluated cardiology who felt she was not in acute heart failure. Echocardiogram reveals normal LV function and mild mitral regurgitation. She was monitored off diuretics and off fluids at that time. Patient developed acute confusion, and had developed fever of 100.3. Procalcitonin level was checked which was elevated at 0.62, white count had also increased up to 11.2, renal function worsening. Infectious disease was consulted and patient was started on empiric antibiotics with IV cefepime. Urinalysis was repeated which was abnormal as compared to initial urine sample, culture had finalized showing yeast species, unlikely UTI is the source of sepsis. Blood cultures remained negative. Patient was monitored on medical floor after being initiated on IV cefepime. She had continued to deny any nausea vomiting, or diarrhea and also denied abdominal pain. Abdomen was nontender on exam. She had progressive emesis that began to appear as fecal emesis. Patient at about 0430 on 11/15/22 patient was found to have increased lethargy and bradycardia which during rapid response patient had become unresponsive and pulse was lost. There was evidence of continued emesis. Patient was intubated and brought to the intensive care unit where she was placed on mechanical ventilator. NG tube inserted. Maintained on levophed and was found to be acidotic. There is concern for aspiration. Family was updated at the bedside in intensive care unit. Patient underwent abdominal pelvis CT which revealed small bowel terminal ileum nondistended within the colon with a dilated jejunum and proximal ileum. No definitive transition point was identified. Possibly in the right lower quadrant. There is bilateral airspace disease left greater than right possible aspiration. Brain CT completed showing no acute process and also new diverging gaze noted. Patient was evaluated by general surgery. Hemoglobin the morning of the found to be 10.5. She continued to be monitored overnight in intensive care unit with NG tube in place. Patient had further decline in status and required addition of vasopressin for blood pressure support. Hemoglobin at 2300 7.3 with a 3 gram drop. There was no reports of black/bloody stool by staff. Gastric output from NG tube continues to be light brownish in color does not appear to have coffee ground appearance. She was monitored. AM labs on 11/16 showing white count of 3.5, hgb 6.9, platelet count of 61. Sodium increased to 147, BUN 54, creatinine 2.79. Liver enzymes continue to elevated. She had significant lactic acidosis which continued to elevate throughout the night. Patient had been made a do not resuscitate throughout the evening. Family at the bedside in the morning on the and had made the decision to extubate patient. Patient in the intensive care unit on 11/16/22 at 0738. Thank you for allowing us to participate in the care of this patient. The impression and plan of care has been dictated by Jennifer Gaxiola, Nurse Practitioner as directed. Dr. Whit MD I have performed a history and physical examination and medical decision making of this patient, discussed the same with the dictator, and agree with the dictators assessment and plan as written, documented as a scribe. Based on total visit time, I have performed more than 50% of this visit. Plan - Discharge Summary New Discharge Prescriptions: No Action Sertraline HCl [Zoloft] 100 mg PO BID Raloxifene [Evista] 60 mg PO DAILY risperiDONE [RisperDAL] 2 mg PO HS busPIRone HCl [Buspar] 10 mg PO BID PRN PRN Reason: Anxiety traZODone HCL 100 mg PO HS Naproxen 500 mg PO BID PRN PRN Reason: Pain amLODIPine [Norvasc] 10 mg PO DAILY #90 tab oxyCODONE-APAP 7.5-325MG [Percocet 7.5-325 mg] 1 tab PO Q6H PRN #12 tab PRN Reason: Pain Acetaminophen Tab [Tylenol] 650 mg PO Q6H PRN PRN Reason: Fever And/ Or Pain Pantoprazole [Protonix] 40 mg PO DAILY Meclizine [Antivert] 12.5 mg PO BID PRN PRN Reason: Vertigo Levothyroxine Sodium 125 mcg PO DAILY Gabapentin 800 mg PO TID Ergocalciferol (Vitamin D2) [Drisdol (50,000 Iu)] 1,250 mcg PO Q7D Dicyclomine HCl 10 - 20 mg PO QID PRN PRN Reason: IBS Albuterol Sulfate [Ventolin HFA] 2 puff INHALATION RT-Q6H PRN PRN Reason: Shortness Of Breath Atorvastatin [Lipitor] 10 mg PO DAILY Aspirin EC [Ecotrin Low Dose] 81 mg PO DAILY Budesonide/Formoterol Fumarate [Symbicort 160-4.5 Mcg Inhaler] 1 puff INHALATION RT-BID Discharge Medication List Raloxifene [Evista] 60 mg PO DAILY 02/07/15 [History] Sertraline HCl [Zoloft] 100 mg PO BID 02/07/15 [History] risperiDONE [RisperDAL] 2 mg PO HS 04/05/15 [History] busPIRone HCl [Buspar] 10 mg PO BID PRN 01/14/20 [History] traZODone HCL 100 mg PO HS 01/14/20 [History] Naproxen 500 mg PO BID PRN 03/07/21 [History] Dicyclomine HCl 10 - 20 mg PO QID PRN 12/16/21 [History] Ergocalciferol (Vitamin D2) [Drisdol (50,000 Iu)] 1,250 mcg PO Q7D 12/16/21 [History] amLODIPine [Norvasc] 10 mg PO DAILY #90 tab 12/20/21 [Rx] oxyCODONE-APAP 7.5-325MG [Percocet 7.5-325 mg] 1 tab PO Q6H PRN #12 tab 12/24/21 [Rx] Albuterol Sulfate [Ventolin HFA] 2 puff INHALATION RT-Q6H PRN 01/30/22 [History] Acetaminophen Tab [Tylenol] 650 mg PO Q6H PRN 03/07/22 [History] Aspirin EC [Ecotrin Low Dose] 81 mg PO DAILY 11/12/22 [History] Atorvastatin [Lipitor] 10 mg PO DAILY 11/12/22 [History] Budesonide/Formoterol Fumarate [Symbicort 160-4.5 Mcg Inhaler] 1 puff INHALATION RT-BID 11/12/22 [History] Gabapentin 800 mg PO TID 11/12/22 [History] Levothyroxine Sodium 125 mcg PO DAILY 11/12/22 [History] Meclizine [Antivert] 12.5 mg PO BID PRN 11/12/22 [History] Pantoprazole [Protonix] 40 mg PO DAILY 11/12/22 [History] Follow up Appointment(s)/Referral(s): Michael Valdovinos DO [Primary Care Provider] - 1-2 days Discharge Disposition: - Preliminary Cause of Preliminary Cause of : pneumonia with sepsis secondary to fecal emesis
== END 2022-11-16 12:19 | disposition expired | DRG 208 ==
LOC: EC 14:12 → 3SCARD 19:11 → 2SICU 11-15 05:17
PROVIDERS: ADMIT Hospitalist; ATTEND Hospitalist
PROC: 0BH17EZ Insertion of Endotracheal Airway into Trachea, Via Natural or Artificial Opening (ICD-10-PCS; principal; 2022-11-15)
PROC: 5A1945Z Respiratory Ventilation, 24-96 Consecutive Hours (ICD-10-PCS; principal; 2022-11-15)
PROC: 4A133B1 Monitoring of Arterial Pressure, Peripheral, Percutaneous Approach (ICD-10-PCS; 2022-11-15)
PROC: 02HV33Z Insertion of Infusion Device into Superior Vena Cava, Percutaneous Approach (ICD-10-PCS; 2022-11-15)
PROC: 03HY32Z Insertion of Monitoring Device into Upper Artery, Percutaneous Approach (ICD-10-PCS; 2022-11-15)
PROC: 4A133J1 Monitoring of Arterial Pulse, Peripheral, Percutaneous Approach (ICD-10-PCS; 2022-11-15)
PROC: 3E043XZ Introduction of Vasopressor into Central Vein, Percutaneous Approach (ICD-10-PCS; 2022-11-15)
PROC: 0D9670Z Drainage of Stomach with Drainage Device, Via Natural or Artificial Opening (ICD-10-PCS; 2022-11-15)
PROC: 5A12012 Performance of Cardiac Output, Single, Manual (ICD-10-PCS; 2022-11-15)
DX: J15.0 Pneumonia due to Klebsiella pneumoniae (principal); A41.59 Other Gram-negative sepsis; G92.8 Other toxic encephalopathy; J96.21 Acute and chronic respiratory failure with hypoxia; K72.00 Acute and subacute hepatic failure without coma; N17.9 Acute kidney failure, unspecified; E87.20 Acidosis, unspecified; I13.0 Hypertensive heart and chronic kidney disease with heart failure and stage 1 through stage 4 chronic kidney disease, or unspecified chronic kidney disease; I50.30 Unspecified diastolic (congestive) heart failure; J44.0 Chronic obstructive pulmonary disease with (acute) lower respiratory infection; J44.1 Chronic obstructive pulmonary disease with (acute) exacerbation; Z16.12 Extended spectrum beta lactamase (ESBL) resistance; S62.102K Fracture of unspecified carpal bone, left wrist, subsequent encounter for fracture with nonunion; G93.1 Anoxic brain damage, not elsewhere classified; B37.49 Other urogenital candidiasis; K56.609 Unspecified intestinal obstruction, unspecified as to partial versus complete obstruction; J69.0 Pneumonitis due to inhalation of food and vomit; R57.8 Other shock; Z66 Do not resuscitate; M06.9 Rheumatoid arthritis, unspecified; I46.9 Cardiac arrest, cause unspecified; I27.20 Pulmonary hypertension, unspecified; Z20.822 Contact with and (suspected) exposure to COVID-19; Z99.81 Dependence on supplemental oxygen; E03.9 Hypothyroidism, unspecified; E66.9 Obesity, unspecified; Z68.31 Body mass index [BMI] 31.0-31.9, adult; F32.A Depression, unspecified; M79.7 Fibromyalgia; N18.30 Chronic kidney disease, stage 3 unspecified; Z71.3 Dietary counseling and surveillance; N20.0 Calculus of kidney; E78.5 Hyperlipidemia, unspecified; Z90.5 Acquired absence of kidney; Z87.891 Personal history of nicotine dependence; Z86.16 Personal history of COVID-19; R16.1 Splenomegaly, not elsewhere classified; T39.395A Adverse effect of other nonsteroidal anti-inflammatory drugs [NSAID], initial encounter; R00.0 Tachycardia, unspecified; G43.909 Migraine, unspecified, not intractable, without status migrainosus; Z79.51 Long term (current) use of inhaled steroids; Z79.82 Long term (current) use of aspirin; Z79.890 Hormone replacement therapy; Z79.899 Other long term (current) drug therapy; Z85.528 Personal history of other malignant neoplasm of kidney; Z86.19 Personal history of other infectious and parasitic diseases; Z80.1 Family history of malignant neoplasm of trachea, bronchus and lung; R11.10 Vomiting, unspecified; G89.29 Other chronic pain; M24.532 Contracture, left wrist; M21.832 Other specified acquired deformities of left forearm; Z88.6 Allergy status to analgesic agent; Z88.5 Allergy status to narcotic agent; Z88.0 Allergy status to penicillin
CPT/HCPCS: 36415; 36600; 70450; 71045; 71046; 74176; 76770; 80048; 80053; 81001; 82805; 83605; 83735; 83880; 84100; 84145; 84484; 85025; 85027; 85610; 85730; 86140; 87040; 87070; 87077; 87086; 87186; 87205; 87636; 92950; 93005; 93306; 94003; 94640; 94760; 96365; 96366; 96375; 96376; 99285